=== PATIENT | male | born 1960 | race Caucasian/White ===

== ENCOUNTER 2016-09-23 12:49 | Inpatient (IN) | payer MEDICARE, OTHER ==
[~2016-09-23] VITALS: Ht 180.3 cm; Wt 86.4 kg
[~2016-09-23 12:49] MED LIST: ADV25050 INH; ALBU2.5V36 NEB; AMIO200T2 PO; ASC500 PO; ASPI81TA3 PO; ATOR10TA65 PO; BISA10SU58 PR; CLOP75TA27 PO; CRAN3875 PO; CRAN425C PO; DOCU-144 PO; HYDR-3498 PO; LACT1CAP33 PO; MAGN400O4 PO; METO-448 PO; MULT-552 PO; NA P118E PR; OLAN5TAB5 PO; PANT40TA3 PO; RTATR NEB; TIOT18CA IH; TYL500 PO
[2016-09-23] MEDS ORDERED: ALBUTEROL 0.083% (NEB) 2.5 MG/3 ML AMP NEB STA (12:51)
[2016-09-23] MEDS ORDERED: IPRATROPIUM (NEB) 0.5 MG/2.5 ML AMP NEB STA (12:51)
[2016-09-23 12:59] VITALS: Ht 180.3 cm; Wt 86.4 kg
[2016-09-23] MEDS ORDERED: METHYLPREDNISOLONE 125 MG INJ IV STA (13:08)
[2016-09-23] MEDS ORDERED: ACETAMINOPHEN 325 MG TAB PO PRN ×3 (13:30→18:00)
[2016-09-23] MEDS ORDERED: ONDANSETRON 4 MG INJ IV PRN ×2 (13:30→18:00)
[2016-09-23] MEDS ORDERED: AZITHROMYCIN 500MG/NS (PMX) 250 ML IVPB ONE (13:30)
[2016-09-23 13:40] LABS: ADD SCAN DIFF NO
[2016-09-23 13:44] LABS: BASOPHIL # 0.1 10^3/ul (0.0-0.1); BASOPHILS % 0.4 % (0.0-2.0); EOSINOPHILS # 0.6 10^3/ul (0.0-0.5); EOSINOPHILS % 5.4 % (0.0-7.0); HEMATOCRIT 38.3 % (42.0-52.0); HEMOGLOBIN 11.9 g/dl (14.0-18.0); LYMPHOCYTES # 1.6 10^3/ul (0.8-2.9); MEAN CORPUSCULAR HEMOGLOBIN 30.6 pg (29.0-33.0); MEAN CORPUSCULAR HGB CONC 31.1 g/dl (32.0-37.0); MEAN CORPUSCULAR VOLUME 98.5 fl (82.0-101.0); MEAN PLATELET VOLUME 8.9 fl (7.4-10.4); MONOCYTE # 1.2 10^3/ul (0.3-0.9); MONOCYTES % 10.1 % (0.0-11.0); NEUTROPHIL # 7.9 10^3/ul (1.6-7.5); NEUTROPHILS % 69.5 % (39.0-77.0); PLATELET COUNT 267 10^3/UL (140-415); RED BLOOD COUNT 3.89 10^6/ul (4.70-6.10); RED CELL DISTRIBUTION WIDTH 12.9 % (11.5-14.5); WHITE BLOOD COUNT 11.4 10^3/ul (4.8-10.8)
[2016-09-23 13:56] LABS: BLOOD UREA NITROGEN 21 mg/dl (7-20); CALCIUM 9.3 mg/dl (8.4-10.2); CHLORIDE 90 mmol/L (97-110); CREATININE 0.66 mg/dl (0.61-1.24); GLUCOSE 98 mg/dl (70-220); POTASSIUM 4.7 mmol/L (3.5-5.1); SODIUM 139 mmol/L (135-144)
[2016-09-23 14:05] LABS: ANION GAP 12 (8-16); CARBON DIOXIDE 42 mmol/L (21-31)
--- NOTE | 2016-09-23 14:10 | RADRPT ---
PROCEDURE: XR Chest. CLINICAL INDICATION: Cough. TECHNIQUE: Two views. Frontal and lateral. COMPARISON: 01/11/2015. FINDINGS: There is patchy air space disease in the right upper and lower lung zones consistent with pneumonia. The left lung is clear. The heart is enlarged. There is calcification in the aorta consistent with atherosclerosis. There is no pleural effusion. There is no pneumothorax. IMPRESSION: 1. Patchy pneumonia in the right upper lower lung zones. 2. Cardiomegaly and atherosclerosis. RPTAT: QQ .Immanuel Dean MD, MD Date Time Electronically viewed and signed by .Immanuel Dean MD, on 09/23/2016 14:10 .R/
[2016-09-23] MEDS ORDERED: ACET325T33 PO (14:13)
[2016-09-23] MEDS ORDERED: ALBU90AE INHALATION (14:13)
[2016-09-23] MEDS ORDERED: MONT10TA21 PO (14:14)
[2016-09-23] MEDS ORDERED: DEXT1DRO7 OP (14:16)
[2016-09-23] MEDS ORDERED: DIPH28.32 TOP (14:17)
[2016-09-23] MEDS ORDERED: LORA10TA3 PO (14:18)
[2016-09-23] MEDS ORDERED: DIVA500T7 PO (14:20)
[2016-09-23] MEDS ORDERED: OMEG500C3 PO (14:20)
[2016-09-23] MEDS ORDERED: ATOR10TA65 PO (14:21)
[2016-09-23] MEDS ORDERED: MAG355OR14 PO (14:22)
[2016-09-23] MEDS ORDERED: NICO1PAT6 TD (14:23)
[2016-09-23] MEDS ORDERED: GABA100C14 PO (14:23)
[2016-09-23] MEDS ORDERED: HYDR-902 PO (14:24)
[2016-09-23] MEDS ORDERED: CEFEPIME 1GM/50 ML (PMX) 50 ML IVPB ONE (14:30)
[2016-09-23 14:41] LABS: TROPONIN-I < 0.010 ng/ml (0.00-0.12)
--- NOTE | 2016-09-23 15:27 | ERA ---
ER Documentation Chief Complaint Date/Time DATE: 09/23/16 TIME: 15:23 Chief Complaint BROUGHT IN VIA PRIVATE AMBULANCE FROM [facility] DUE TO ELEVATED CO2 AT 81 HPI Patient is a 56-year-old male with COPD who presents with a high carbon dioxide level. The patient was brought in by ambulance. He is currently wearing a 21 g nicotine patch. He uses home oxygen of 2-3 L. He was sent by Dr. Barnes his primary doctor. He is awake and alert at this time. ROS All systems reviewed and are negative except as per history of present illness. Medications Home Meds Reported Medications Hydrocodone/Acetaminophen (Sesser 10-325 Tablet) 1 Each Tablet, 1 EACH PO Q8H Y for PAIN LEVEL 7-9/10, TAB 09/23/16 Nicotine* (Nicotine* Patch) 21 mg/day Patch, 1 EACH TD DAILY, PATCH 09/23/16 Gabapentin* (Gabapentin*) 100 Mg Capsule, 200 MG PO TID, #180 CAP 09/23/16 Mag Hydrox/Al Hydrox/Simeth (Maalox Advanced Suspension) 355 Ml Oral.susp, 30 ML PO Q6H 09/23/16 Atorvastatin Calcium (Atorvastatin Calcium) 10 Mg Tablet, 5 MG PO QHS, #30 TAB 09/23/16 [place]-3 Fatty Acids (Fish Oil) 500 Mg Capsule, 1000 MG PO, CAP 09/23/16 Divalproex Sodium* (Depakote ER*) 500 Mg Tabsr, 1000 MG PO QHS, #60 TAB.SA 09/23/16 Loratadine* (Loratadine*) 10 Mg Tablet, 10 MG PO DAILY, #30 TAB 09/23/16 Diphenhydramine-Zinc* Topical (Diphenhydramine-Zinc* Topical) 1%-28 Gm Cream..g. , 1 APPLIC TOP NEEDED, TUB 09/23/16 Dextran 70/Hypromellose/Pf (ARTIFICIAL TEARS DROPS) 1 Each Droperette, 1 EACH OP TID 09/23/16 Montelukast Sodium* (Singulair*) 10 Mg Tablet, 10 MG PO QHS, #30 TAB 09/23/16 Acetaminophen* (Tylenol*) 325 Mg Tablet, 650 MG PO Q4H Y for MILD PAIN LEVEL 1-3 , TAB 09/23/16 Albuterol Sulfate (Proair Respiclick) 90 Mcg Aer.pow.ba, 1 PUFF INHALATION Q4 Y for SHORTNESS OF BREATH, #1 BOTTLE 09/23/16 Metoprolol Tartrate* (Lopressor*) 25 Mg Tab, 25 MG PO BID for HOLD OF SBP<110, HR<60, TAB 09/02/14 Ipratropium [place]* (Atrovent*) 0.5 Mg/2.5 Ml Neb, 0.5 MG NEB Q4H Y for WHEEZING AND SOB, EA 09/02/14 Aspirin* (Aspirin* Chew) 81 Mg Tab.chew, 81 MG PO DAILY, TAB.CHEW 09/02/14 Lactobacillus Acidophilus (Acidophilus Lactobacillus) 1 Cap Capsule, 1 CAP PO BID 09/02/14 Ascorbic Acid (Vitamin C) 500 Mg Tab, 500 MG PO DAILY, TAB 05/28/14 Acetaminophen* (Tylenol*) 500 Mg Tab, 1000 MG PO Q4H Y for PAIN LEVEL 4-11/27, TAB 05/28/14 Pantoprazole* (Protonix*) 40 Mg Tablet.dr, 40 MG PO BID, TAB 05/28/14 Multivitamins* (Once Daily*) 1 Tab Tablet, 1 TAB PO DAILY, TAB 05/28/14 Magnesium Hydroxide* (Milk Of Magnesia*) 400 Mg/5 Ml Oral.susp, 30 ML PO DAILY Y for CONSTIPATION, ML 05/28/14 Na Phos,M-B/Na Phos,Di-Ba* (Fleet* Enema) 118 Ml Enema, 118 ML AL prn Y for CONSTIPATION, ENEMA 05/28/14 Bisacodyl* (Dulcolax*) 10 Mg/Supp.rect Supp.rect, 10 MG AL DAILY Y for CONSTIPATION, SUPP.RECT 05/28/14 Cranberry Extract (Cranberry) 425 Mg Capsule, 425 MG PO DAILY 05/28/14 Amiodarone Hcl* (Amiodarone Hcl*) 200 Mg Tablet, 200 MG PO DAILY, TAB 05/28/14 Docusate Sodium* (Colace*) 100 Mg Capsule, 200 MG PO QHS Y for CONSTIPATION, CAP 05/28/14 Discontinued Reported Medications Olanzapine* (Zyprexa*) 5 Mg Tablet, 5 MG PO QHS, TAB 09/02/14 Cran/Vitc/Mannose/Inulin/Brom (Uti-Stat Liquid) 3,875 Mg/30 Ml Liquid, 3875 MG PO DAILY 09/02/14 Clopidogrel Bisulfate (Clopidogrel) 75 Mg Tablet, 75 MG PO DAILY, TAB 09/02/14 Hydrocodone Bit-Acetaminophen* (Sesser*) 5-325 Mg Tab, 1 TAB PO Q6 Y for SEVERE PAIN LEVEL 7-10, TAB 09/02/14 Atorvastatin Calcium (Atorvastatin Calcium) 10 Mg Tab, 10 MG PO HS, TAB 09/02/14 Albuterol Sulfate* (Albuterol Sulfate* Neb) 0.5%-0.5 Ml Neb, 2.5 MG NEB Q4H Y for WHEEZING AND SOB, EA 09/02/14 Salmeterol Xinaf/Fluticasone* (Advair*) 250-50 Diskus Inhaler, 1 INH INH BID, INH 09/02/14 Tiotropium [place]* (Spiriva*) 18 Mcg Cap.w.dev, 1 INH IH DAILY, EA 05/28/14 Allergies Allergies: Coded Allergies: vancomycin (Verified Allergy, Unknown, RASHES, 09/23/16) PMhx/Soc History of Surgery: Yes (RIGHT KNEE SURGERY A CHILD) Anesthesia Reaction: No Hx Neurological Disorder: No Hx Respiratory Disorders: Yes (COPD, ASTHMA) Hx Cardiac Disorders: Yes (HX OF AFIB, HTN, CAD) Hx Psychiatric Problems: Yes (HX OF BIPOLAR DISORDER) Hx Miscellaneous Medical Probl: No Hx Alcohol Use: No Hx Substance Use: Yes (PT ADVISED HE USE TO SMOKE CRACK) Hx Tobacco Use: Yes Smoking Status: Former smoker FmHx Family History: No diabetes Physical Exam Vitals Vital Signs Date Time Temp Pulse Resp B/P Pulse Ox O2 Delivery O2 Flow Rate FiO2 09/23/16 13:45 Nasal Cannula 5 09/23/16 13:30 4.0 09/23/16 13:30 85 19 88 Nasal Cannula 4.0 09/23/16 12:59 98.4 86 18 115/68 86 Physical Exam Const: No acute distress Head: Atraumatic Eyes: Normal Conjunctiva ENT: Normal External Ears, Nose and Mouth. Neck: Full range of motion..~ No meningismus. Resp: Decreased breath sounds bilaterally Cardio: Regular rate and rhythm, no murmurs Abd: Soft, non tender, non distended. Normal bowel sounds Skin: No petechiae or rashes Back: No midline or flank tenderness Ext: No cyanosis, or edema Neur: Awake and alert 3 Psych: Normal Mood and Affect Result Diagram: 09/23/16 1320 09/23/16 1320 Results 24 hrs Laboratory Tests Test 09/23/16 13:20 White Blood Count 11.410^3/ul Red Blood Count 3.8910^6/ul Hemoglobin 11.9g/dl Hematocrit 38.3% Mean Corpuscular Volume 98.5fl Mean Corpuscular Hemoglobin 30.6pg Mean Corpuscular Hemoglobin Concent 31.1g/dl Red Cell Distribution Width 12.9% Platelet Count 59976^3/UL Mean Platelet Volume 8.9fl Neutrophils % 69.5% Lymphocytes % 14.0% Monocytes % 10.1% Eosinophils % 5.4% Basophils % 0.4% Nucleated Red Blood Cells % 0.0/100WBC Neutrophils # 7.910^3/ul Lymphocytes # 1.610^3/ul Monocytes # 1.210^3/ul Eosinophils # 0.610^3/ul Basophils # 0.110^3/ul Nucleated Red Blood Cells # 0.010^3/ul Sodium Level 139mmol/L Potassium Level 4.7mmol/L Chloride Level 90mmol/L Carbon Dioxide Level 42mmol/L Anion Gap 12 Blood Urea Nitrogen 21mg/dl Creatinine 0.66mg/dl Glucose Level 98mg/dl Calcium Level 9.3mg/dl Troponin I < 0.010ng/ml Current Medications Medications (Trade) Dose Ordered Sig/Luis Route PRN Reason Start Time Stop Time Status Last Admin Dose Admin Albuterol (Proventil 0.083% (Neb)) 5 mg ONCE STAT NEB 09/23/16 12:51 09/23/16 12:53 DC 09/23/16 13:27 Ipratropium [place] (Atrovent 0.02% (Neb)) 0.5 mg ONCE STAT NEB 09/23/16 12:51 09/23/16 12:53 DC 09/23/16 13:27 Methylprednisolone Sodium Succinate 125 mg 125 mg ONCE STAT IV 09/23/16 13:08 09/23/16 13:10 DC 09/23/16 14:14 Azithromycin (Zithromax 500mg/ NS (Pmx)) 250 ml @ 250 mls/hr ONCE ONCE IVPB 09/23/16 13:30 09/23/16 14:29 DC 09/23/16 14:14 Ondansetron HCl (Zofran Inj) 4 mg BRIDGE ORDER PRN IV NAUSEA AND/OR VOMITING 09/23/16 13:30 09/24/16 13:29 Acetaminophen 650 mg 650 mg ER BRIDGE PRN PO MILD PAIN/FEVER 09/23/16 13:30 09/24/16 13:29 Cefepime HCl (Maxipime 1gm/50 ml (Pmx)) 50 ml @ 100 mls/hr ONCE ONCE IVPB 09/23/16 14:30 09/23/16 14:59 DC 09/23/16 14:26 Procedures/MDM Chest x-ray shows pneumonia per radiology. EKG read by me: Rate/Rhythm: Regular rate and rhythm at a rate of 97 Intervals: Normal Impression: No evidence of ischemia or arrhythmia Patient is a 56-year-old male with COPD who presents with high carbon dioxide. He was also found to have pneumonia on chest x-ray. The patient was given Zithromax and cefepime empirically. I doubt sepsis at this time. The patient was given albuterol, Atrovent, and Solu-Medrol. The patient will be admitted to the care of Dr. Canales who is covering for his primary doctor at this time. The patient will be admitted to a medical surgical bed. I doubt pneumothorax or pulmonary embolism. The patient was 87% on 5 L nasal cannula which is more oxygen than he normally uses. Departure Diagnosis: Primary Impression: Hypoxia Additional Impressions: COPD exacerbation Pneumonia Qualified Code: J18.9 - Pneumonia due to infectious organism, unspecified laterality, unspecified part of lung Condition: DAVID Byers MD Sep 23, 2016 15:27
[2016-09-23 16:46] VITALS: BP 132/80; RESP 18
[2016-09-23] MEDS ORDERED: BISACODYL 10 MG SUPP PR PRN (18:00)
[2016-09-23] MEDS ORDERED: DOCUSATE SODIUM 100 MG CAP PO PRN (18:00)
[2016-09-23] MEDS ORDERED: NACL 0.9% 3 ML SYG IV SCH (18:00)
[2016-09-23] MEDS ORDERED: NA PHOSPHATE/BIPHOS 133 ML ENEMA PR PRN (18:00)
[2016-09-23] MEDS ORDERED: ACETAMINOPHEN 500 MG TAB PO PRN (18:00)
[2016-09-23] MEDS ORDERED: MAGNESIUM HYDROXIDE 30ML CUP PO PRN (18:00)
[2016-09-23] MEDS: METHYLPREDNISOLONE 125 MG INJ IV SCH (18:56)
[2016-09-23] MEDS: AZITHROMYCIN 500MG/NS (PMX) 250 ML IVPB SCH (18:56)
[2016-09-23] MEDS: AL HYDROX/MG HYDROX/SIMETH 30 ML CUP PO SCH (18:56)
[2016-09-23 19:47] VITALS: BP 135/80; RESP 20
[2016-09-23] MEDS: ALBUTEROL 0.083% (NEB) 2.5 MG/3 ML AMP HHN SCH (19:57)
[2016-09-23] MEDS: GABAPENTIN 100 MG CAP PO SCH (21:47)
[2016-09-23] MEDS: PANTOPRAZOLE (EC) 40 MG TAB PO SCH (21:47)
[2016-09-23] MEDS: DIVALPROEX (ER) 500 MG TAB PO SCH (21:47)
[2016-09-23] MEDS: MONTELUKAST 10 MG TAB PO SCH (21:47)
[2016-09-23] MEDS: ATORVASTATIN 10 MG TAB PO SCH (21:47)
[2016-09-23] MEDS: METOPROLOL 25 MG TAB PO SCH (21:48)
[2016-09-23] MEDS: CEFEPIME 1GM/50 ML (PMX) 50 ML IVPB SCH (21:48)
[2016-09-24] MEDS: AL HYDROX/MG HYDROX/SIMETH 30 ML CUP PO SCH ×5 (00:32→23:40)
[2016-09-24] MEDS: METHYLPREDNISOLONE 125 MG INJ IV SCH ×5 (00:32→23:40)
--- NOTE | 2016-09-24 00:34 | CONS ---
DATE OF ADMISSION: 09/23/2016 DATE OF CONSULTATION: 09/23/2016 TYPE OF CONSULTATION: Infectious Disease. REASON FOR CONSULTATION: Antibiotic management. HISTORY OF PRESENT ILLNESS: Dima Tucker is a 56-year-old male brought in via private ambulance from a SNF due to elevated CO2. The patient has a number of problems including COPD. He is brought in with a high carbon dioxide level of 81. He came to the emergency room wearing a 21 mcg nicotine pat ch. He uses home oxygen 2 to 3 L. His past problems include: 1. ALLERGY TO VANCOMYCIN, DEVELOPS A RASH. 2. Status post right knee surgery as a child. 3. COPD. 4. Asthma. 5. History of atrial fibrillation. 6. Hypertension. 7. Coronary artery disease. 8. Bipolar disorder. On admission, the patient's white count was 11.4, H and H 11.9 and 38.3, platelet count 267,000. BU N and creatinine 21 over 0.66. PHYSICAL EXAMINATION: GENERAL: The patient is a well-developed, well-nourished male who is awake, responsive, in no acute distress. VITAL SIGNS: Stable. He is afebrile. SKIN: Without generalized rash. HEENT: Within normal limits. NECK: Supple. LYMPH NODES: None palpable. CHEST: Decreased breath sounds at the bases. HEART: Without murmur or gallop. ABDOMEN: Soft, nontender without organosplenomegaly or masses. EXTREMITIES: Without cyanosis, clubbing or edema. RECTAL AND GENITAL: Deferred. NEUROLOGIC: No focal neurological abnormalities. As mentioned, his white count was 11.4. BUN and creatinine 21 over 0.66. A chest x-ray showed patc hy pneumonia in the right upper and lower lung zones, cardiomegaly and atherosclerosis. The patient was started on cefepime, which was a good choice since he has healthcare-associated pneumonia. Lionel l await his culture results. He is on cefepime and azithromycin. He is afebrile. Will order some sputum for culture. I will dictate my findings to the hospitalist. Dictated By: ARVIN NOVA MD, JD/ALYSON Conf#: [id number] DID#: [id number]
[2016-09-24] MEDS: IPRATROPIUM (NEB) 0.5 MG/2.5 ML AMP NEB PRN ×2 (03:08→20:04)
[2016-09-24 06:00] LABS: ADD SCAN DIFF NO
[2016-09-24 06:39] LABS: BASOPHILS % 0.2 % (0.0-2.0); HEMATOCRIT 36.9 % (42.0-52.0); HEMOGLOBIN 11.6 g/dl (14.0-18.0); LYMPHOCYTES # 0.6 10^3/ul (0.8-2.9); LYMPHOCYTES % 4.9 % (15.0-51.0); MEAN CORPUSCULAR HEMOGLOBIN 30.9 pg (29.0-33.0); MEAN CORPUSCULAR HGB CONC 31.4 g/dl (32.0-37.0); MEAN CORPUSCULAR VOLUME 98.4 fl (82.0-101.0); MEAN PLATELET VOLUME 9.2 fl (7.4-10.4); MONOCYTE # 0.1 10^3/ul (0.3-0.9); MONOCYTES % 0.6 % (0.0-11.0); NEUTROPHILS % 93.2 % (39.0-77.0); PLATELET COUNT 227 10^3/UL (140-415); RED BLOOD COUNT 3.75 10^6/ul (4.70-6.10); RED CELL DISTRIBUTION WIDTH 12.6 % (11.5-14.5); WHITE BLOOD COUNT 12.9 10^3/ul (4.8-10.8)
[2016-09-24 07:06] LABS: ALBUMIN 3.7 g/dl (3.3-4.9); ALBUMIN/GLOBULIN RATIO 0.88; BILIRUBIN,INDIRECT 0.1 mg/dl (0-1.1); BILIRUBIN,TOTAL 0.1 mg/dl (0.2-1.3); CALCIUM 8.6 mg/dl (8.4-10.2); CREATININE 0.65 mg/dl (0.61-1.24); MAGNESIUM 2.2 mg/dl (1.7-2.5); PHOSPHORUS 3.7 mg/dl (2.5-4.9); POTASSIUM 4.9 mmol/L (3.5-5.1); TOTAL PROTEIN 7.9 g/dl (6.1-8.1)
[2016-09-24 07:30] VITALS: BP 125/71; RESP 16
[2016-09-24] MEDS: CEFEPIME 1GM/50 ML (PMX) 50 ML IVPB SCH ×2 (08:34→21:27)
[2016-09-24] MEDS: ASPIRIN 81 MG TAB PO SCH (08:35)
[2016-09-24] MEDS: GABAPENTIN 100 MG CAP PO SCH ×3 (08:36→21:28)
[2016-09-24] MEDS: LORATADINE 10 MG TAB PO SCH (08:36)
[2016-09-24] MEDS: ASCORBIC ACID 500 MG TAB PO SCH (08:36)
[2016-09-24] MEDS: AMIODARONE 200 MG TAB PO SCH (08:36)
[2016-09-24] MEDS: PANTOPRAZOLE (EC) 40 MG TAB PO SCH ×2 (08:36→21:27)
[2016-09-24] MEDS: METOPROLOL 25 MG TAB PO SCH ×2 (08:36→21:28)
[2016-09-24] MEDS: MULTIVITAMINS THERAPEUTIC TAB PO SCH (08:36)
[2016-09-24] MEDS: DIPHENHYDRAMINE 1%/ZINC 28.3 GM CR TOP SCH (08:41)
[2016-09-24] MEDS: ALBUTEROL 0.083% (NEB) 2.5 MG/3 ML AMP HHN SCH ×4 (08:59→20:04)
[2016-09-24] MEDS ORDERED: NICOTINE (21 MG/24 HR) PATCH TRANSDERM SCH (09:00)
[2016-09-24] MEDS: ENOXAPARIN 40 MG/0.4 ML SYG SC SCH (09:28)
--- NOTE | 2016-09-24 14:04 | HP ---
Date/Time of Note Date/Time of Note DATE: 09/24/16 TIME: 14:01 Assessment/Plan VTE Prophylaxis VTE Prophylaxis Intervention: other Lines/Catheters IV [facility] Saline Lock Urinary Cath still in place: No Assessment/Plan Assessment/Plan Hypoxia and acute resp failure COPD exacerbation Pneumonia continue abx, bronchodilators and steroids. pulm is consulted. dc nicotin patch. dvt and gi prophylaxis 30 mins were spent on advanced directives and goals of care HPI/ROS Admit Date/Time Admit Date/Time Sep 23, 2016 at 13:31 Hx of Present Illness Patient is a 56-year-old male with COPD who presents with high carbon dioxide. He was also found to have pneumonia on chest x-ray. The patient was given Zithromax and cefepime empirically. I doubt sepsis at this time. The patient was given albuterol, Atrovent, and Solu-Medrol. The patient will be admitted to the care of Dr. Canales who is covering for his primary doctor at this time. The patient will be admitted to a medical surgical bed. I doubt pneumothorax or pulmonary embolism. The patient was 87% on 5 L nasal cannula which is more oxygen than he normally uses. His pulm status is improving ROS All systems reviewed and are negative except as per history of present illness. soc hx: quit tobacco and alcohol few years ago family history: + pulm diseases code status: full Medications Home Meds Reported Medications Hydrocodone/Acetaminophen (Raymond 10-325 Tablet) 1 Each Tablet, 1 EACH PO Q8H Y for PAIN LEVEL 7-9/10, TAB 09/23/16 Nicotine* (Nicotine* Patch) 21 mg/day Patch, 1 EACH TD DAILY, PATCH 09/23/16 Gabapentin* (Gabapentin*) 100 Mg Capsule, 200 MG PO TID, #180 CAP 09/23/16 Mag Hydrox/Al Hydrox/Simeth (Maalox Advanced Suspension) 355 Ml Oral.susp, 30 ML PO Q6H 09/23/16 Atorvastatin Calcium (Atorvastatin Calcium) 10 Mg Tablet, 5 MG PO QHS, #30 TAB 09/23/16 [place]-3 Fatty Acids (Fish Oil) 500 Mg Capsule, 1000 MG PO, CAP 09/23/16 Divalproex Sodium* (Depakote ER*) 500 Mg Tabsr, 1000 MG PO QHS, #60 TAB.SA 09/23/16 Loratadine* (Loratadine*) 10 Mg Tablet, 10 MG PO DAILY, #30 TAB 09/23/16 Diphenhydramine-Zinc* Topical (Diphenhydramine-Zinc* Topical) 1%-28 Gm Cream..g. , 1 APPLIC TOP NEEDED, TUB 09/23/16 Dextran 70/Hypromellose/Pf (ARTIFICIAL TEARS DROPS) 1 Each Droperette, 1 EACH OP TID 09/23/16 Montelukast Sodium* (Singulair*) 10 Mg Tablet, 10 MG PO QHS, #30 TAB 09/23/16 Acetaminophen* (Tylenol*) 325 Mg Tablet, 650 MG PO Q4H Y for MILD PAIN LEVEL 1-3 , TAB 09/23/16 Albuterol Sulfate (Proair Respiclick) 90 Mcg Aer.pow.ba, 1 PUFF INHALATION Q4 Y for SHORTNESS OF BREATH, #1 BOTTLE 09/23/16 Metoprolol Tartrate* (Lopressor*) 25 Mg Tab, 25 MG PO BID for HOLD OF SBP<110, HR<60, TAB 09/02/14 Ipratropium [place]* (Atrovent*) 0.5 Mg/2.5 Ml Neb, 0.5 MG NEB Q4H Y for WHEEZING AND SOB, EA 09/02/14 Aspirin* (Aspirin* Chew) 81 Mg Tab.chew, 81 MG PO DAILY, TAB.CHEW 09/02/14 Lactobacillus Acidophilus (Acidophilus Lactobacillus) 1 Cap Capsule, 1 CAP PO BID 09/02/14 Ascorbic Acid (Vitamin C) 500 Mg Tab, 500 MG PO DAILY, TAB 05/28/14 Acetaminophen* (Tylenol*) 500 Mg Tab, 1000 MG PO Q4H Y for PAIN LEVEL 4-11/27, TAB 05/28/14 Pantoprazole* (Protonix*) 40 Mg Tablet.dr, 40 MG PO BID, TAB 05/28/14 Multivitamins* (Once Daily*) 1 Tab Tablet, 1 TAB PO DAILY, TAB 05/28/14 Magnesium Hydroxide* (Milk Of Magnesia*) 400 Mg/5 Ml Oral.susp, 30 ML PO DAILY Y for CONSTIPATION, ML 05/28/14 Na Phos,M-B/Na Phos,Di-Ba* (Fleet* Enema) 118 Ml Enema, 118 ML [place] prn Y for CONSTIPATION, ENEMA 05/28/14 Bisacodyl* (Dulcolax*) 10 Mg/Supp.rect Supp.rect, 10 MG NV DAILY Y for CONSTIPATION, SUPP.RECT 05/28/14 Cranberry Extract (Cranberry) 425 Mg Capsule, 425 MG PO DAILY 05/28/14 Amiodarone Hcl* (Amiodarone Hcl*) 200 Mg Tablet, 200 MG PO DAILY, TAB 05/28/14 Docusate Sodium* (Colace*) 100 Mg Capsule, 200 MG PO QHS Y for CONSTIPATION, CAP 05/28/14 Discontinued Reported Medications Olanzapine* (Zyprexa*) 5 Mg Tablet, 5 MG PO QHS, TAB 09/02/14 Cran/Vitc/Mannose/Inulin/Brom (Uti-Stat Liquid) 3,875 Mg/30 Ml Liquid, 3875 MG PO DAILY 09/02/14 Clopidogrel Bisulfate (Clopidogrel) 75 Mg Tablet, 75 MG PO DAILY, TAB 09/02/14 Hydrocodone Bit-Acetaminophen* (Raymond*) 5-325 Mg Tab, 1 TAB PO Q6 Y for SEVERE PAIN LEVEL 7-10, TAB 09/02/14 Atorvastatin Calcium (Atorvastatin Calcium) 10 Mg Tab, 10 MG PO HS, TAB 09/02/14 Albuterol Sulfate* (Albuterol Sulfate* Neb) 0.5%-0.5 Ml Neb, 2.5 MG NEB Q4H Y for WHEEZING AND SOB, EA 09/02/14 Salmeterol Xinaf/Fluticasone* (Advair*) 250-50 Diskus Inhaler, 1 INH INH BID, INH 09/02/14 Tiotropium [place]* (Spiriva*) 18 Mcg Cap.w.dev, 1 INH IH DAILY, EA 05/28/14 Allergies Allergies: Coded Allergies: vancomycin (Verified Allergy, Unknown, RASHES, 09/23/16) PMhx/Soc History of Surgery: Yes (RIGHT KNEE SURGERY A CHILD) Anesthesia Reaction: No Hx Neurological Disorder: No Hx Respiratory Disorders: Yes (COPD, ASTHMA) Hx Cardiac Disorders: Yes (HX OF AFIB, HTN, CAD) Hx Psychiatric Problems: Yes (HX OF BIPOLAR DISORDER) Hx Miscellaneous Medical Probl: No Hx Alcohol Use: No Hx Substance Use: Yes (PT ADVISED HE USE TO SMOKE CRACK) Hx Tobacco Use: Yes Smoking Status: Former smoker FmHx Family History: No diabetes Physical Exam Vitals Vital Signs Date Time Temp Pulse Resp B/P Pulse Ox O2 Delivery O2 Flow Rate FiO2 09/23/16 13:45 Nasal Cannula 5 09/23/16 13:30 4.0 09/23/16 13:30 85 19 88 Nasal Cannula 4.0 09/23/16 12:59 98.4 86 18 115/68 86 Physical Exam Const: No acute distress Head: Atraumatic Eyes: Normal Conjunctiva ENT: Normal External Ears, Nose and Mouth. Neck: Full range of motion..~ No meningismus. Resp: Decreased breath sounds bilaterally Cardio: Regular rate and rhythm, no murmurs Abd: Soft, non tender, non distended. Normal bowel sounds Skin: No petechiae or rashes Back: No midline or flank tenderness Ext: No cyanosis, or edema Neur: Awake and alert 3 Psych: Normal Mood and Affect Result Diagram: Procedures/MDM Chest x-ray shows pneumonia per radiology. EKG Rate/Rhythm: Regular rate and rhythm at a rate of 97 Intervals: Normal Impression: No evidence of ischemia or arrhythmia PMH/Family/Social Social History Smoking Status: Former smoker Exam/Review of Systems Vital Signs Vitals Vital Signs Date Time Temp Pulse Resp B/P Pulse Ox O2 Delivery O2 Flow Rate FiO2 09/24/16 13:08 103 20 96 Nasal Cannula 6.0 09/24/16 07:30 98.6 125/71 Intake and Output 09/23/16 09/23/16 09/24/16 15:00 23:00 07:00 Intake Total 300 ml 240 ml Output Total 150 ml 1200 ml Balance 150 ml -960 ml Labs Result Diagram: 09/24/16 0512 09/24/16 0512 Medications Medications Current Medications Ondansetron HCl (Zofran Inj) 4 mg Q6H PRN IV NAUSEA AND/OR VOMITING; Start 09/23 at 18:00 Acetaminophen (Tylenol Tab) 650 mg Q6H PRN PO PAIN LEVEL 1-3 OR FEVER; Start at 18:00 Zolpidem Tartrate (Ambien) 5 mg QHS PRN PO SLEEP; Start 09/23/16 at 18:00 Enoxaparin Sodium (Lovenox) 40 mg DAILY SC Last administered on 09/24/16t 09:28 ; Admin Dose 40 MG; Start 09/24/16 at 09:00 Acetaminophen (Tylenol Tab) 650 mg Q4H PRN PO MILD PAIN LEVEL 1-3; Start at 18:00 Acetaminophen (Tylenol Tab) 1,000 mg Q4H PRN PO PAIN LEVEL 4-6/10; Start at 18:00 Amiodarone HCl (Cordarone) 200 mg DAILY PO Last administered on 09/24/16 08:36 ; Admin Dose 200 MG; Start 09/24/16 at 09:00 Ascorbic Acid (Vitamin C) 500 mg DAILY PO Last administered on 09/24/16 08:36; Admin Dose 500 MG; Start 09/24/16 at 09:00 Aspirin (Aspirin) 81 mg DAILY PO Last administered on 09/24/16 08:35; Admin Dose 81 MG; Start 09/24/16 at 09:00 Atorvastatin Calcium (Lipitor) 5 mg QHS PO Last administered on 09/23/16 21:47 ; Admin Dose 5 MG; Start 09/23/16 at 21:00 Bisacodyl (Dulcolax Supp) 10 mg DAILY PRN NV CONSTIPATION; Start 09/23/16 at 18: 00 Diphenhydramine/ Zinc Oxide (Benadryl 1% Cr) 1 applic DAILY TOP ; Start 09/24/16 at 09:00 Divalproex Sodium (Depakote Er) 1,000 mg QHS PO Last administered on 09/23/16 21:47; Admin Dose 1,000 MG; Start 09/23/16 at 21:00 Docusate Sodium (Colace) 200 mg QHS PRN PO CONSTIPATION; Start 09/23/16 at 18:00 Gabapentin (Neurontin) 200 mg TID PO Last administered on 09/24/16 12:29; Admin Dose 200 MG; Start 09/23/16 at 21:00 Acetaminophen/ Hydrocodone Bitart (Raymond (10/325)) 1 tab Q8H PRN PO PAIN LEVEL 7-9/10; Start 09/23/16 at 18:00 Loratadine (Claritin) 10 mg DAILY PO Last administered on 09/24/16 08:36; Admin Dose 10 MG; Start 09/24/16 at 09:00 Al Hydrox/Mg Hydrox/Simethicone (Mag-Al Plus) 30 ml Q6H PO Last administered on 09/24/16 12:28; Admin Dose 30 ML; Start 09/23/16 at 18:00 Magnesium Hydroxide (Milk Of Mag) 30 ml DAILY PRN PO CONSTIPATION; Start at 18:00 Metoprolol Tartrate (Lopressor) 25 mg BID PO Last administered on 09/24/16 08: 36; Admin Dose 25 MG; Start 09/23/16 at 21:00 Montelukast Sodium (Singulair) 10 mg QHS PO Last administered on 09/23/16 21:47 ; Admin Dose 10 MG; Start 09/23/16 at 21:00 Multivitamins Therapeutic (Theragran) 1 tab DAILY PO Last administered on 08:36; Admin Dose 1 TAB; Start 09/24/16 at 09:00 Sodium Biphosphate/ Sodium Phosphate (Fleet Enema) 118 ml prn PRN NV CONSTIPATION; Start 09/23/16 at 18:00 Nicotine (Nicoderm 21 Mg/ 24hr) 1 patch DAILY TRANSDERM ; Start 09/24/16 at 09:00 Pantoprazole 40 mg 40 mg BID PO Last administered on 09/24/16 08:36; Admin Dose 40 MG; Start 09/23/16 at 21:00 Cefepime HCl 50 ml @ 100 mls/hr Q12 IVPB Last administered on 09/24/16 08:34; Admin Dose 100 MLS/HR; Start 09/23/16 at 21:00 Azithromycin (Zithromax 500mg/ NS (Pmx)) 250 ml @ 250 mls/hr Q24H IVPB Last administered on 09/23/16 18:56; Admin Dose 250 MLS/HR; Start 09/23/16 at 18:00 Methylprednisolone Sodium Succinate (Solu-Medrol) 60 mg Q6 IV Last administered on 09/24/16 12:29; Admin Dose 60 MG; Start 09/23/16 at 18:00 DAMON BOSWELL DO Sep 24, 2016 14:04
--- NOTE | 2016-09-24 14:11 | CONS ---
DATE OF ADMISSION: 09/23/2016 DATE OF CONSULTATION: 09/24/2016 REASON FOR CONSULT: Shortness of breath. Thank you, Dr. Canales, for this consultation. REASON FOR CONSULTATION: Shortness of breath. HISTORY OF PRESENT ILLNESS: This is a 56-year-old gentleman transferred from [facility] for increasing shortness of breath, orthopnea with elevated pCO2. The patient is a poor historia n, unable to give me further details. PAST MEDICAL HISTORY: Includes COPD, bipolar disorder, atrial fibrillation, hypertension, hyperlipi demia. MEDICATIONS: Per chart. ALLERGIES: NONE. SOCIAL HISTORY: Positive tobacco history. Occasional alcohol, no history of drug use. FAMILY HISTORY: Noncontributory. SYSTEMS REVIEW: A 14-point review of systems was negative other than that mentioned above. PHYSICAL EXAMINATION: GENERAL: Elderly-appearing gentleman, comfortable at rest, no acute distress. VITAL SIGNS: Currently afebrile, pulse is 100, blood pressure 125/71, O2 saturation 96% on 6 liters . NECK: Supple, no JVD or lymphadenopathy. CARDIAC: S1, S2, no added sounds or murmurs. CHEST: Diminished air entry bilaterally. ABDOMEN: Soft, nontender. No guarding or rebound. EXTREMITIES: No cyanosis, clubbing or edema. NEUROLOGIC: Generalized weakness, but no focal deficits. IMPRESSION AND PLAN: 1. Acute on chronic exacerbation of chronic obstructive pulmonary disease. 2. Chronic hypercapnia. 3. Possible underlying obstructive sleep apnea. The patient will require: 1. Bronchodilators. 2. Steroids. 3. Check arterial blood gas. 4. Pulmonary toilet. 5. Aspiration precautions. 6. Rate control. 7. DVT and GI prophylaxis. Dictated By: DEMARIO LAU/ALYSON Conf#: [id number] DID#: [id number]
--- NOTE | 2016-09-24 15:18 | PN ---
DATE: 09/24/2016 SUBJECTIVE: No acute changes. Patient is awake, lying comfortably in bed, feels better. No fevers . WBC today 12.9, neutrophils 93.2, BUN 21, creatinine 0.65. ANTIMICROBIALS: Cefepime and Zithromax. PHYSICAL EXAMINATION: GENERAL: An obese, well-developed, middle-aged white man who is awake, in no distress. HEENT: Head atraumatic, normocephalic. Sclerae anicteric. Buccal mucosa dry. NECK: Supple. CHEST: Rise symmetrical. Breath sounds diminished to bases. HEART: S1, S2. ABDOMEN: Soft, bowel tones present. EXTREMITIES: No cyanosis. ASSESSMENT: 1. Pneumonia. 2. Chronic obstructive pulmonary disease exacerbation. 3. Obesity. 4. History of atrial fibrillation and bipolar disorder. PLAN: The patient remains stable, started on steroids, bronchodilators, pulmonary on case. Continu e present care. Pulmonary toilet, aspiration precautions. Dictated By: NANCY MOREL EKG TECHNICIAN for ARVIN VERDUZCO/ALYSON Conf#: [id number] DID#: [id number]
--- NOTE | 2016-09-24 15:59 | RADRPT ---
PROCEDURE: Chest radiograph series. CLINICAL INDICATION: Pneumonia TECHNIQUE: PA and lateral chest x-ray. COMPARISON: Chest radiograph 01/11/2015 FINDINGS: Heart size is within normal limits. Atherosclerotic calcifications are present. There is extensive interstitial opacities which are present dating back to 2014 consistent with chronic lung changes. There is a questionable superimposed increased linear densities in the right upper lung zone which m ay represent a superimposed infiltrate. There is mild bibasilar atelectasis. The osseous structures are unremarkable. IMPRESSION: 1. Chronic lung changes with suggested superimposed right upper lobe infiltrate. Recommend follow- up as clinically indicated. 2. Atherosclerotic vascular disease. RPTAT: AA .Shilo Huynh MD, MD Date Time Electronically viewed and signed by .Shilo Huynh MD, MD on 09/24/2016 15:59 .B/
[2016-09-24] MEDS: AZITHROMYCIN 500MG/NS (PMX) 250 ML IVPB SCH (18:22)
[2016-09-24 19:33] VITALS: BP 126/71; PULSE 78; RESP 20
[2016-09-24] MEDS: ATORVASTATIN 10 MG TAB PO SCH (21:27)
[2016-09-24] MEDS: MONTELUKAST 10 MG TAB PO SCH (21:28)
[2016-09-24] MEDS: DIVALPROEX (ER) 500 MG TAB PO SCH (21:28)
[2016-09-24] MEDS: ZOLPIDEM 5 MG TAB PO PRN (23:40)
[2016-09-25] MEDS: HYDROCODONE/APAP (10/325) TAB PO PRN ×2 (01:33→12:25)
[2016-09-25] MEDS: AL HYDROX/MG HYDROX/SIMETH 30 ML CUP PO SCH ×4 (05:35→23:17)
[2016-09-25] MEDS: METHYLPREDNISOLONE 125 MG INJ IV SCH ×4 (05:35→23:17)
[2016-09-25] MEDS: IPRATROPIUM (NEB) 0.5 MG/2.5 ML AMP NEB PRN (05:53)
[2016-09-25 06:24] LABS: ADD SCAN DIFF NO
[2016-09-25 07:21] LABS: BASOPHILS % 0.2 % (0.0-2.0); HEMATOCRIT 36.7 % (42.0-52.0); HEMOGLOBIN 11.3 g/dl (14.0-18.0); LYMPHOCYTES # 0.7 10^3/ul (0.8-2.9); LYMPHOCYTES % 4.1 % (15.0-51.0); MEAN CORPUSCULAR HGB CONC 30.8 g/dl (32.0-37.0); MEAN CORPUSCULAR VOLUME 100.8 fl (82.0-101.0); MEAN PLATELET VOLUME 9.5 fl (7.4-10.4); MONOCYTE # 0.6 10^3/ul (0.3-0.9); MONOCYTES % 3.7 % (0.0-11.0); NEUTROPHIL # 14.6 10^3/ul (1.6-7.5); NEUTROPHILS % 90.3 % (39.0-77.0); PLATELET COUNT 253 10^3/UL (140-415); RED BLOOD COUNT 3.64 10^6/ul (4.70-6.10); RED CELL DISTRIBUTION WIDTH 12.8 % (11.5-14.5); WHITE BLOOD COUNT 16.1 10^3/ul (4.8-10.8)
[2016-09-25 07:27] LABS: CALCIUM 8.5 mg/dl (8.4-10.2); CREATININE 0.6 mg/dl (0.61-1.24); MAGNESIUM 2.7 mg/dl (1.7-2.5); PHOSPHORUS 2.7 mg/dl (2.5-4.9); POTASSIUM 5.2 mmol/L (3.5-5.1)
[2016-09-25] MEDS: ALBUTEROL 0.083% (NEB) 2.5 MG/3 ML AMP HHN SCH ×4 (07:48→20:06)
[2016-09-25 08:13] VITALS: BP 131/73; RESP 20
[2016-09-25] MEDS: LORATADINE 10 MG TAB PO SCH (08:52)
[2016-09-25] MEDS: ASCORBIC ACID 500 MG TAB PO SCH (08:52)
[2016-09-25] MEDS: PANTOPRAZOLE (EC) 40 MG TAB PO SCH ×2 (08:52→20:34)
[2016-09-25] MEDS: AMIODARONE 200 MG TAB PO SCH (08:52)
[2016-09-25] MEDS: ASPIRIN 81 MG TAB PO SCH (08:52)
[2016-09-25] MEDS: MULTIVITAMINS THERAPEUTIC TAB PO SCH (08:53)
[2016-09-25] MEDS: METOPROLOL 25 MG TAB PO SCH ×2 (08:53→20:34)
[2016-09-25] MEDS: GABAPENTIN 100 MG CAP PO SCH ×3 (08:53→20:30)
[2016-09-25] MEDS: CEFEPIME 1GM/50 ML (PMX) 50 ML IVPB SCH ×2 (08:54→20:30)
[2016-09-25] MEDS: DIPHENHYDRAMINE 1%/ZINC 28.3 GM CR TOP SCH (08:55)
[2016-09-25] MEDS: ENOXAPARIN 40 MG/0.4 ML SYG SC SCH (08:57)
[2016-09-25 09:21] LABS: AADO2 Arterial 126.8 mmHg (7.0-24.0); Allen Test ACCEPTAB; Arterial Base Excess 13.9 mmol/L (-3.0-3); Arterial COHb 0.4 % (0.0-3.0); Arterial HCO3 43.2 mmol/L (22.0-26.0); Arterial MetHb 0.3 % (0.0-1.5); MODE NASAL CANNULA
--- NOTE | 2016-09-25 10:37 | CONS ---
Date/Time of Note Date/Time of Note DATE: 09/25/16 TIME: 10:29 Consult Date/Type/Reason Admit Date/Time Sep 23, 2016 at 13:31 Initial Consult Date Subjective Hypoxia and acute resp failure COPD exacerbation Pneumonia continue abx, bronchodilators and steroids. pulm is consulted. dc nicotin patch. dvt and gi prophylaxis 30 mins were spent on advanced directives and goals of care HPI/ROS Admit Date/Time Admit Date/Time Sep 23, 2016 at 13:31 Hx of Present Illness Patient is a 56-year-old male with COPD who presents with high carbon dioxide. He was also found to have pneumonia on chest x-ray. The patient was given Zithromax and cefepime empirically. I doubt sepsis at this time. The patient was given albuterol, Atrovent, and Solu-Medrol. The patient will be admitted to the care of Dr. Doherty who is covering for his primary doctor at this time. The patient will be admitted to a medical surgical bed. ROS All systems reviewed and are negative except as per history of present illness. soc hx: quit tobacco and alcohol few years ago family history: + pulm diseases code status: full Physical Exam Const: No acute distress Head: Atraumatic Eyes: Normal Conjunctiva ENT: Normal External Ears, Nose and Mouth. Neck: Full range of motion..~ No meningismus. Resp: Decreased breath sounds bilaterally Cardio: Regular rate and rhythm, no murmurs Abd: Soft, non tender, non distended. Normal bowel sounds Skin: No petechiae or rashes Back: No midline or flank tenderness Ext: No cyanosis, or edema Neur: Awake and alert 3 Psych: Normal Mood and Affect Objective Vital Signs Date Time Temp Pulse Resp B/P Pulse Ox O2 Delivery O2 Flow Rate FiO2 09/25/16 08:13 98.6 92 20 131/73 97 09/25/16 07:48 Nasal Cannula 6.0 Intake and Output 09/24/16 09/24/16 09/25/16 15:00 23:00 07:00 Intake Total 50 ml 1810 ml 420 ml Output Total 1100 ml 700 ml Balance 50 ml 710 ml -280 ml Results/Medications Result Diagram: 09/25/16 0526 09/25/16 0526 Results 24 hrs Laboratory Tests Test 09/25/16 05:26 09/25/16 07:00 White Blood Count 16.1 #H Red Blood Count 3.64 L Hemoglobin 11.3 L Hematocrit 36.7 L Mean Corpuscular Volume 100.8 Mean Corpuscular Hemoglobin 31.0 Mean Corpuscular Hemoglobin Concent 30.8 L Red Cell Distribution Width 12.8 Platelet Count 253 Mean Platelet Volume 9.5 Neutrophils % 90.3 H Lymphocytes % 4.1 L Monocytes % 3.7 Eosinophils % 0.0 Basophils % 0.2 Nucleated Red Blood Cells % 0.0 Neutrophils # 14.6 H Lymphocytes # 0.7 L Monocytes # 0.6 Eosinophils # 0.0 Basophils # 0.0 Nucleated Red Blood Cells # 0.0 Sodium Level 142 Potassium Level 5.2 H Chloride Level 95 L Carbon Dioxide Level 43 *H Anion Gap 9 Blood Urea Nitrogen 28 H Creatinine 0.60 L Glucose Level 155 Calcium Level 8.5 Phosphorus Level 2.7 Magnesium Level 2.7 H Blood Gas Specimen Source Blood arterial Arterial Blood Date Drawn 09/25/2016 9:00:16 AM Arterial Blood pH (Temp corrected) 7.372 Arterial Blood pCO2 (Temp correct) 76.1 H Arterial Blood pO2 (Temp corrected) 63.6 L Arterial Blood HCO3 43.2 *H Arterial Blood Base Excess 13.9 H Arterial Blood Oxygen Saturation 91.6 L Elijah Test ACCEPTAB Arterial Blood Gas Puncture Site Right Radial Arterial Blood Carboxyhemoglobin 0.4 Arterial Blood Methemoglobin 0.3 Blood Gas A-a O2 Differential 126.8 H Oxyhemoglobin Percent 91.0 L Total Hemoglobin 15.0 Blood Gas Temperature 37.0 Blood Gas Modality NASAL CANNULA FiO2 39.0 Blood Gas Critical Value Read Back Teresa ROCHA RN Blood Gas Notified Whom DT Blood Gas Notified Time 09/25/2016 9:17:47 AM Medications Current Medications Ondansetron HCl (Zofran Inj) 4 mg Q6H PRN IV NAUSEA AND/OR VOMITING; Start 09/23 at 18:00 Acetaminophen (Tylenol Tab) 650 mg Q6H PRN PO PAIN LEVEL 1-3 OR FEVER Last administered on 09/25/16 02:45; Admin Dose 650 MG; Start 09/23/16 at 18:00 Zolpidem Tartrate (Ambien) 5 mg QHS PRN PO SLEEP Last administered on 09/24/16 23:40; Admin Dose 5 MG; Start 09/23/16 at 18:00 Enoxaparin Sodium (Lovenox) 40 mg DAILY SC Last administered on 09/25/16 08:57 ; Admin Dose 40 MG; Start 09/24/16 at 09:00 Acetaminophen (Tylenol Tab) 650 mg Q4H PRN PO MILD PAIN LEVEL 1-3; Start at 18:00 Acetaminophen (Tylenol Tab) 1,000 mg Q4H PRN PO PAIN LEVEL 4-6/10; Start at 18:00 Amiodarone HCl (Cordarone) 200 mg DAILY PO Last administered on 09/25/16 08:52 ; Admin Dose 200 MG; Start 09/24/16 at 09:00 Ascorbic Acid (Vitamin C) 500 mg DAILY PO Last administered on 09/25/16 08:52; Admin Dose 500 MG; Start 09/24/16 at 09:00 Aspirin (Aspirin) 81 mg DAILY PO Last administered on 09/25/16 08:52; Admin Dose 81 MG; Start 09/24/16 at 09:00 Atorvastatin Calcium (Lipitor) 5 mg QHS PO Last administered on 09/24/16 21:27 ; Admin Dose 5 MG; Start 09/23/16 at 21:00 Bisacodyl (Dulcolax Supp) 10 mg DAILY PRN [place] CONSTIPATION; Start 09/23/16 at 18: 00 Diphenhydramine/ Zinc Oxide (Benadryl 1% Cr) 1 applic DAILY TOP ; Start 09/24/16 at 09:00 Divalproex Sodium (Depakote Er) 1,000 mg QHS PO Last administered on 09/24/16 21:28; Admin Dose 1,000 MG; Start 09/23/16 at 21:00 Docusate Sodium (Colace) 200 mg QHS PRN PO CONSTIPATION; Start 09/23/16 at 18:00 Gabapentin (Neurontin) 200 mg TID PO Last administered on 09/25/16 08:53; Admin Dose 200 MG; Start 09/23/16 at 21:00 Acetaminophen/ Hydrocodone Bitart ([place] (10/325)) 1 tab Q8H PRN PO PAIN LEVEL 7-9/10 Last administered on 09/25/16 01:33; Admin Dose 1 TAB; Start 09/23/16 at 18:00 Loratadine (Claritin) 10 mg DAILY PO Last administered on 09/25/16 08:52; Admin Dose 10 MG; Start 09/24/16 at 09:00 Al Hydrox/Mg Hydrox/Simethicone (Mag-Al Plus) 30 ml Q6H PO Last administered on 09/25/16 05:35; Admin Dose 30 ML; Start 09/23/16 at 18:00 Magnesium Hydroxide (Milk Of Mag) 30 ml DAILY PRN [place] CONSTIPATION; Start at 18:00 Metoprolol Tartrate (Lopressor) 25 mg BID PO Last administered on 09/25/16 08: 53; Admin Dose 25 MG; Start 09/23/16 at 21:00 Montelukast Sodium (Singulair) 10 mg QHS PO Last administered on 09/24/16 21:28 ; Admin Dose 10 MG; Start 09/23/16 at 21:00 Multivitamins Therapeutic (Theragran) 1 tab DAILY PO Last administered on 08:53; Admin Dose 1 TAB; Start 09/24/16 at 09:00 Sodium Biphosphate/ Sodium Phosphate (Fleet Enema) 118 ml prn PRN [place] CONSTIPATION; Start 09/23/16 at 18:00 Pantoprazole 40 mg 40 mg BID PO Last administered on 09/25/16 08:52; Admin Dose 40 MG; Start 09/23/16 at 21:00 Cefepime HCl 50 ml @ 100 mls/hr Q12 IVPB Last administered on 09/25/16 08:54; Admin Dose 100 MLS/HR; Start 09/23/16 at 21:00 Azithromycin (Zithromax 500mg/ NS (Pmx)) 250 ml @ 250 mls/hr Q24H IVPB Last administered on 09/24/16 18:22; Admin Dose 250 MLS/HR; Start 09/23/16 at 18:00 Methylprednisolone Sodium Succinate (Solu-Medrol) 60 mg Q6 IV Last administered on 09/25/16 05:35; Admin Dose 60 MG; Start 09/23/16 at 18:00 Assessment/Plan Chief Complaint/Hosp Course 1. Acute on chronic exacerbation of chronic obstructive pulmonary disease. continue abx, bronchodilators and steroids. pulm is consulted. dc nicotin patch. 2. Chronic hypercapnia. 3. Possible underlying obstructive sleep apnea. 4. possible healthcare associated pneumonia 5. History of arrhythmia, currently in sinus rhythm. 6. Coronary artery disease. Continue medical management. 7. Anemia of chronic disease. Continue to monitor H and H levels. 8. Diastolic heart failure, improved. Continue current medical management. 9. dvt and gi prophylaxis Problems: SCOTT DOHERTY MD Sep 25, 2016 10:37
--- NOTE | 2016-09-25 11:30 | CONS ---
Date/Time of Note Date/Time of Note DATE: 09/25/16 TIME: 11:28 Assessment/Plan Assessment/Plan Chief Complaint/Hosp Course ID PROGRESS NOTE CURRENT ABX=> Cefepime + Azith 24H INTERVAL SUMMARY * A/A/O, overweight -- wants to go home [facility] -- I told him as far as I am concerned he can go home on PO ABX Levaquin * Up on feet walking around his bed w/supplemental O2 via NC, no wheezing, (+) bronchial cough -- wants to go back to bed * No fevers, WBC rising on IV steroids PHYSICAL EXAMINATION: GENERAL: VSS, NAD, Afebrile HEENT: Unremarkable NECK: Supple, trachea midline. CHEST: Rise symmetrical, without dyspnea on observation HEART: Pulse RRR ABDOMEN: Soft EXTREMITIES: Warm ID ASSESSMENT 56 yo M PMHx Bipolar disorder admit with: 1. Pneumonia=> CXR interstitial disease * Respiratory cx (-) = normal unique 2. Chronic obstructive pulmonary disease exacerbation. 3. Tobaccoism 4. History of atrial fibrillation MRSA Nares ->pending INVASIVES: PIV ABX ALLERGY: Vanco IV CURRENT ABX: TOTAL ABX DAY #3 => Cefepime + Azith ID RECOMMENDATIONS 1. Continue current ABX 2. When cleared by primary patient may DC home on Levaquin 500mg po daily x 5 days Problems: Consultation Date/Type/Reason Admit Date/Time Sep 23, 2016 at 13:31 Initial Consult Date Type of Consultation: ID Exam/Review of Systems Vital Signs Vitals Vital Signs Date Time Temp Pulse Resp B/P Pulse Ox O2 Delivery O2 Flow Rate FiO2 09/25/16 08:13 98.6 92 20 131/73 97 09/25/16 07:48 Nasal Cannula 6.0 Intake and Output 09/24/16 09/24/16 09/25/16 15:00 23:00 07:00 Intake Total 50 ml 1810 ml 420 ml Output Total 1100 ml 700 ml Balance 50 ml 710 ml -280 ml Results Result Diagram: 09/25/16 0526 09/25/16 0526 Results 24 hrs Laboratory Tests Test 09/25/16 05:26 09/25/16 07:00 White Blood Count 16.1 #H Red Blood Count 3.64 L Hemoglobin 11.3 L Hematocrit 36.7 L Mean Corpuscular Volume 100.8 Mean Corpuscular Hemoglobin 31.0 Mean Corpuscular Hemoglobin Concent 30.8 L Red Cell Distribution Width 12.8 Platelet Count 253 Mean Platelet Volume 9.5 Neutrophils % 90.3 H Lymphocytes % 4.1 L Monocytes % 3.7 Eosinophils % 0.0 Basophils % 0.2 Nucleated Red Blood Cells % 0.0 Neutrophils # 14.6 H Lymphocytes # 0.7 L Monocytes # 0.6 Eosinophils # 0.0 Basophils # 0.0 Nucleated Red Blood Cells # 0.0 Sodium Level 142 Potassium Level 5.2 H Chloride Level 95 L Carbon Dioxide Level 43 *H Anion Gap 9 Blood Urea Nitrogen 28 H Creatinine 0.60 L Glucose Level 155 Calcium Level 8.5 Phosphorus Level 2.7 Magnesium Level 2.7 H Blood Gas Specimen Source Blood arterial Arterial Blood Date Drawn 09/25/2016 9:00:16 AM Arterial Blood pH (Temp corrected) 7.372 Arterial Blood pCO2 (Temp correct) 76.1 H Arterial Blood pO2 (Temp corrected) 63.6 L Arterial Blood HCO3 43.2 *H Arterial Blood Base Excess 13.9 H Arterial Blood Oxygen Saturation 91.6 L Elijah Test ACCEPTAB Arterial Blood Gas Puncture Site Right Radial Arterial Blood Carboxyhemoglobin 0.4 Arterial Blood Methemoglobin 0.3 Blood Gas A-a O2 Differential 126.8 H Oxyhemoglobin Percent 91.0 L Total Hemoglobin 15.0 Blood Gas Temperature 37.0 Blood Gas Modality NASAL CANNULA FiO2 39.0 Blood Gas Critical Value Read Back M AJ RN Blood Gas Notified Whom DT Blood Gas Notified Time 09/25/2016 9:17:47 AM Medications Medications Current Medications Ondansetron HCl (Zofran Inj) 4 mg Q6H PRN IV NAUSEA AND/OR VOMITING; Start 09/23 at 18:00 Acetaminophen (Tylenol Tab) 650 mg Q6H PRN PO PAIN LEVEL 1-3 OR FEVER Last administered on 09/25/16 02:45; Admin Dose 650 MG; Start 09/23/16 at 18:00 Zolpidem Tartrate (Ambien) 5 mg QHS PRN PO SLEEP Last administered on 09/24/16 23:40; Admin Dose 5 MG; Start 09/23/16 at 18:00 Enoxaparin Sodium (Lovenox) 40 mg DAILY SC Last administered on 09/25/16 08:57 ; Admin Dose 40 MG; Start 09/24/16 at 09:00 Acetaminophen (Tylenol Tab) 650 mg Q4H PRN PO MILD PAIN LEVEL 1-3; Start at 18:00 Acetaminophen (Tylenol Tab) 1,000 mg Q4H PRN PO PAIN LEVEL 4-6/10; Start at 18:00 Amiodarone HCl (Cordarone) 200 mg DAILY PO Last administered on 09/25/16 08:52 ; Admin Dose 200 MG; Start 09/24/16 at 09:00 Ascorbic Acid (Vitamin C) 500 mg DAILY PO Last administered on 09/25/16 08:52; Admin Dose 500 MG; Start 09/24/16 at 09:00 Aspirin (Aspirin) 81 mg DAILY PO Last administered on 09/25/16 08:52; Admin Dose 81 MG; Start 09/24/16 at 09:00 Atorvastatin Calcium (Lipitor) 5 mg QHS PO Last administered on 09/24/16 21:27 ; Admin Dose 5 MG; Start 09/23/16 at 21:00 Bisacodyl (Dulcolax Supp) 10 mg DAILY PRN [place] CONSTIPATION; Start 09/23/16 at 18: 00 Diphenhydramine/ Zinc Oxide (Benadryl 1% Cr) 1 applic DAILY TOP ; Start 09/24/16 at 09:00 Divalproex Sodium (Depakote Er) 1,000 mg QHS PO Last administered on 09/24/16 21:28; Admin Dose 1,000 MG; Start 09/23/16 at 21:00 Docusate Sodium (Colace) 200 mg QHS PRN PO CONSTIPATION; Start 09/23/16 at 18:00 Gabapentin (Neurontin) 200 mg TID PO Last administered on 09/25/16 08:53; Admin Dose 200 MG; Start 09/23/16 at 21:00 Acetaminophen/ Hydrocodone Bitart ([place] (10/325)) 1 tab Q8H PRN PO PAIN LEVEL 7-9/10 Last administered on 09/25/16 01:33; Admin Dose 1 TAB; Start 09/23/16 at 18:00 Loratadine (Claritin) 10 mg DAILY PO Last administered on 09/25/16 08:52; Admin Dose 10 MG; Start 09/24/16 at 09:00 Al Hydrox/Mg Hydrox/Simethicone (Mag-Al Plus) 30 ml Q6H PO Last administered on 09/25/16 05:35; Admin Dose 30 ML; Start 09/23/16 at 18:00 Magnesium Hydroxide (Milk Of Mag) 30 ml DAILY PRN PO CONSTIPATION; Start at 18:00 Metoprolol Tartrate (Lopressor) 25 mg BID PO Last administered on 09/25/16 08: 53; Admin Dose 25 MG; Start 09/23/16 at 21:00 Montelukast Sodium (Singulair) 10 mg QHS PO Last administered on 09/24/16 21:28 ; Admin Dose 10 MG; Start 09/23/16 at 21:00 Multivitamins Therapeutic (Theragran) 1 tab DAILY PO Last administered on 08:53; Admin Dose 1 TAB; Start 09/24/16 at 09:00 Sodium Biphosphate/ Sodium Phosphate (Fleet Enema) 118 ml prn PRN [place] CONSTIPATION; Start 09/23/16 at 18:00 Pantoprazole 40 mg 40 mg BID PO Last administered on 09/25/16 08:52; Admin Dose 40 MG; Start 09/23/16 at 21:00 Cefepime HCl 50 ml @ 100 mls/hr Q12 IVPB Last administered on 09/25/16 08:54; Admin Dose 100 MLS/HR; Start 09/23/16 at 21:00 Azithromycin (Zithromax 500mg/ NS (Pmx)) 250 ml @ 250 mls/hr Q24H IVPB Last administered on 09/24/16 18:22; Admin Dose 250 MLS/HR; Start 09/23/16 at 18:00 Methylprednisolone Sodium Succinate (Solu-Medrol) 60 mg Q6 IV Last administered on 09/25/16 05:35; Admin Dose 60 MG; Start 09/23/16 at 18:00 RAUL GOMEZ NP Sep 25, 2016 11:30
--- NOTE | 2016-09-25 12:02 | RADRPT ---
PROCEDURE: XR Chest. CLINICAL INDICATION: Shortness of breath. TECHNIQUE: Single frontal view. COMPARISON: 09/24/2016. FINDINGS: There is extensive interstitial disease bilaterally, unchanged. Mild bibasilar atelectasis is uncha nged. The lungs are otherwise clear. The heart size is normal. There is calcification in the aorta consistent with atherosclerosis. There is no pleural effusion. There is no pneumothorax. IMPRESSION: 1. No change from 09/24/2016. RPTAT: QQ .Immanuel Dean MD, MD Date Time Electronically viewed and signed by .Immanuel Dean MD, MD on 09/25/2016 12:02 .R/
[2016-09-25 13:00] VITALS: PULSE 100
[2016-09-25 17:10] VITALS: PULSE 109
[2016-09-25] MEDS: AZITHROMYCIN 500MG/NS (PMX) 250 ML IVPB SCH (17:31)
--- NOTE | 2016-09-25 19:09 | CONS ---
Date/Time of Note Date/Time of Note DATE: 09/25/16 TIME: 19:08 Consult Date/Type/Reason Admit Date/Time Sep 23, 2016 at 13:31 Initial Consult Date Type of Consultation: pulm Subjective No events. Objective Vital Signs Date Time Temp Pulse Resp B/P Pulse Ox O2 Delivery O2 Flow Rate FiO2 09/25/16 17:11 109 21 99 30 09/25/16 12:00 6.0 09/25/16 11:33 Nasal Cannula 09/25/16 08:13 98.6 131/73 Intake and Output 09/24/16 09/24/16 09/25/16 15:00 23:00 07:00 Intake Total 50 ml 1810 ml 420 ml Output Total 1100 ml 700 ml Balance 50 ml 710 ml -280 ml Exam HEENT: Neck supple; no JVD; no LAD CVS: RRR, S1 and S2 CHEST: decreased BS b/l ABD: Soft, NT, + BS EXT: No c/c/e Results/Medications Result Diagram: 09/25/16 0526 09/25/16 0526 Results 24 hrs Laboratory Tests Test 09/25/16 05:26 09/25/16 07:00 White Blood Count 16.1 #H Red Blood Count 3.64 L Hemoglobin 11.3 L Hematocrit 36.7 L Mean Corpuscular Volume 100.8 Mean Corpuscular Hemoglobin 31.0 Mean Corpuscular Hemoglobin Concent 30.8 L Red Cell Distribution Width 12.8 Platelet Count 253 Mean Platelet Volume 9.5 Neutrophils % 90.3 H Lymphocytes % 4.1 L Monocytes % 3.7 Eosinophils % 0.0 Basophils % 0.2 Nucleated Red Blood Cells % 0.0 Neutrophils # 14.6 H Lymphocytes # 0.7 L Monocytes # 0.6 Eosinophils # 0.0 Basophils # 0.0 Nucleated Red Blood Cells # 0.0 Sodium Level 142 Potassium Level 5.2 H Chloride Level 95 L Carbon Dioxide Level 43 *H Anion Gap 9 Blood Urea Nitrogen 28 H Creatinine 0.60 L Glucose Level 155 Calcium Level 8.5 Phosphorus Level 2.7 Magnesium Level 2.7 H Blood Gas Specimen Source Blood arterial Arterial Blood Date Drawn 09/25/2016 9:00:16 AM Arterial Blood pH (Temp corrected) 7.372 Arterial Blood pCO2 (Temp correct) 76.1 H Arterial Blood pO2 (Temp corrected) 63.6 L Arterial Blood HCO3 43.2 *H Arterial Blood Base Excess 13.9 H Arterial Blood Oxygen Saturation 91.6 L Elijah Test ACCEPTAB Arterial Blood Gas Puncture Site Right Radial Arterial Blood Carboxyhemoglobin 0.4 Arterial Blood Methemoglobin 0.3 Blood Gas A-a O2 Differential 126.8 H Oxyhemoglobin Percent 91.0 L Total Hemoglobin 15.0 Blood Gas Temperature 37.0 Blood Gas Modality NASAL CANNULA FiO2 39.0 Blood Gas Critical Value Read Back M AJ PABON Blood Gas Notified Whom DT Blood Gas Notified Time 09/25/2016 9:17:47 AM Medications Current Medications Ondansetron HCl (Zofran Inj) 4 mg Q6H PRN IV NAUSEA AND/OR VOMITING; Start 09/23 at 18:00 Acetaminophen (Tylenol Tab) 650 mg Q6H PRN PO PAIN LEVEL 1-3 OR FEVER Last administered on 09/25/16 02:45; Admin Dose 650 MG; Start 09/23/16 at 18:00 Zolpidem Tartrate (Ambien) 5 mg QHS PRN PO SLEEP Last administered on 09/24/16 23:40; Admin Dose 5 MG; Start 09/23/16 at 18:00 Enoxaparin Sodium (Lovenox) 40 mg DAILY SC Last administered on 09/25/16 08:57 ; Admin Dose 40 MG; Start 09/24/16 at 09:00 Acetaminophen (Tylenol Tab) 650 mg Q4H PRN PO MILD PAIN LEVEL 1-3; Start at 18:00 Acetaminophen (Tylenol Tab) 1,000 mg Q4H PRN PO PAIN LEVEL 4-6/10; Start at 18:00 Amiodarone HCl (Cordarone) 200 mg DAILY PO Last administered on 09/25/16 08:52 ; Admin Dose 200 MG; Start 09/24/16 at 09:00 Ascorbic Acid (Vitamin C) 500 mg DAILY PO Last administered on 09/25/16 08:52; Admin Dose 500 MG; Start 09/24/16 at 09:00 Aspirin (Aspirin) 81 mg DAILY PO Last administered on 09/25/16 08:52; Admin Dose 81 MG; Start 09/24/16 at 09:00 Atorvastatin Calcium (Lipitor) 5 mg QHS PO Last administered on 09/24/16 21:27 ; Admin Dose 5 MG; Start 09/23/16 at 21:00 Bisacodyl (Dulcolax Supp) 10 mg DAILY PRN [place] CONSTIPATION; Start 09/23/16 at 18: 00 Diphenhydramine/ Zinc Oxide (Benadryl 1% Cr) 1 applic DAILY TOP ; Start 09/24/16 at 09:00 Divalproex Sodium (Depakote Er) 1,000 mg QHS PO Last administered on 09/24/16 21:28; Admin Dose 1,000 MG; Start 09/23/16 at 21:00 Docusate Sodium (Colace) 200 mg QHS PRN PO CONSTIPATION; Start 09/23/16 at 18:00 Gabapentin (Neurontin) 200 mg TID PO Last administered on 09/25/16 12:24; Admin Dose 200 MG; Start 09/23/16 at 21:00 Acetaminophen/ Hydrocodone Bitart ([place] (10/325)) 1 tab Q8H PRN PO PAIN LEVEL 7-9/10 Last administered on 09/25/16 12:25; Admin Dose 1 TAB; Start 09/23/16 at 18:00 Loratadine (Claritin) 10 mg DAILY PO Last administered on 09/25/16 08:52; Admin Dose 10 MG; Start 09/24/16 at 09:00 Al Hydrox/Mg Hydrox/Simethicone (Mag-Al Plus) 30 ml Q6H PO Last administered on 09/25/16 17:30; Admin Dose 30 ML; Start 09/23/16 at 18:00 Magnesium Hydroxide (Milk Of Mag) 30 ml DAILY PRN PO CONSTIPATION; Start at 18:00 Metoprolol Tartrate (Lopressor) 25 mg BID PO Last administered on 09/25/16 08: 53; Admin Dose 25 MG; Start 09/23/16 at 21:00 Montelukast Sodium (Singulair) 10 mg QHS PO Last administered on 09/24/16 21:28 ; Admin Dose 10 MG; Start 09/23/16 at 21:00 Multivitamins Therapeutic (Theragran) 1 tab DAILY PO Last administered on 08:53; Admin Dose 1 TAB; Start 09/24/16 at 09:00 Sodium Biphosphate/ Sodium Phosphate (Fleet Enema) 118 ml prn PRN [place] CONSTIPATION; Start 09/23/16 at 18:00 Pantoprazole 40 mg 40 mg BID PO Last administered on 09/25/16 08:52; Admin Dose 40 MG; Start 09/23/16 at 21:00 Cefepime HCl 50 ml @ 100 mls/hr Q12 IVPB Last administered on 09/25/16 08:54; Admin Dose 100 MLS/HR; Start 09/23/16 at 21:00 Azithromycin (Zithromax 500mg/ NS (Pmx)) 250 ml @ 250 mls/hr Q24H IVPB Last administered on 09/25/16 17:31; Admin Dose 250 MLS/HR; Start 09/23/16 at 18:00 Methylprednisolone Sodium Succinate (Solu-Medrol) 60 mg Q6 IV Last administered on 09/25/16 17:30; Admin Dose 60 MG; Start 09/23/16 at 18:00 Assessment/Plan Additional Assessment/Plan IMPRESSION: 1. Acute on chronic exacerbation of chronic obstructive pulmonary disease. 2. Chronic hypercapnia. 3. Possible underlying obstructive sleep apnea. RECS: 1. Taper CS 2. Titrate FiO2 to SpO2 88-92 EVONNE PICKERING MD Sep 25, 2016 19:09
[2016-09-25 19:47] VITALS: BP 142/77; RESP 20
[2016-09-25 20:11] VITALS: PULSE 102
[2016-09-25] MEDS: ATORVASTATIN 10 MG TAB PO SCH (20:31)
[2016-09-25] MEDS: DIVALPROEX (ER) 500 MG TAB PO SCH (20:32)
[2016-09-25] MEDS: MONTELUKAST 10 MG TAB PO SCH (20:34)
[2016-09-25 23:40] VITALS: PULSE 105
[2016-09-26 03:35] VITALS: PULSE 100
[2016-09-26] MEDS: AL HYDROX/MG HYDROX/SIMETH 30 ML CUP PO SCH ×3 (06:02→17:35)
[2016-09-26 07:33] VITALS: BP 137/80; RESP 20
[2016-09-26] MEDS: DIPHENHYDRAMINE 1%/ZINC 28.3 GM CR TOP SCH (09:00)
[2016-09-26] MEDS: ASCORBIC ACID 500 MG TAB PO SCH (09:05)
[2016-09-26] MEDS: LORATADINE 10 MG TAB PO SCH (09:05)
[2016-09-26] MEDS: ASPIRIN 81 MG TAB PO SCH (09:05)
[2016-09-26] MEDS: GABAPENTIN 100 MG CAP PO SCH ×3 (09:06→20:46)
[2016-09-26] MEDS: HYDROCODONE/APAP (10/325) TAB PO PRN (09:06)
[2016-09-26] MEDS: AMIODARONE 200 MG TAB PO SCH (09:07)
[2016-09-26] MEDS: METHYLPREDNISOLONE 125 MG INJ IV SCH (09:08)
[2016-09-26] MEDS: CEFEPIME 1GM/50 ML (PMX) 50 ML IVPB SCH ×2 (09:09→20:42)
[2016-09-26] MEDS: MULTIVITAMINS THERAPEUTIC TAB PO SCH (09:12)
[2016-09-26] MEDS: METOPROLOL 25 MG TAB PO SCH ×2 (09:13→20:48)
[2016-09-26] MEDS: PANTOPRAZOLE (EC) 40 MG TAB PO SCH ×2 (09:13→20:46)
[2016-09-26] MEDS: ENOXAPARIN 40 MG/0.4 ML SYG SC SCH (09:29)
[2016-09-26] MEDS: ALBUTEROL 0.083% (NEB) 2.5 MG/3 ML AMP HHN SCH ×4 (09:35→19:23)
--- NOTE | 2016-09-26 11:46 | CONS ---
Date/Time of Note Date/Time of Note DATE: 09/26/16 TIME: 11:44 Consult Date/Type/Reason Admit Date/Time Sep 23, 2016 at 13:31 Type of Consultation: neph Subjective Patient is a 56-year-old male with COPD who presents with hypercarbic resp failure. He was also found to have pneumonia on chest x-ray. The patient was given Zithromax and cefepime empirically. The patient was given albuterol, Atrovent, and Solu-Medrol. feeling better. concerned about his recent weight gain. ROS All systems reviewed and are negative except as per history of present illness. Const: No acute distress Head: Atraumatic Eyes: Normal Conjunctiva ENT: Normal External Ears, Nose and Mouth. Neck: Full range of motion..~ No meningismus. Resp: Decreased breath sounds bilaterally Cardio: Regular rate and rhythm, no murmurs Abd: Soft, non tender, non distended. Normal bowel sounds Skin: No petechiae or rashes Back: No midline or flank tenderness Ext: No cyanosis, or edema Neur: Awake and alert 3 Psych: Normal Mood and Affect Objective Vital Signs Date Time Temp Pulse Resp B/P Pulse Ox O2 Delivery O2 Flow Rate FiO2 09/26/16 09:36 104 20 88 Nasal Cannula 5.0 09/26/16 07:33 97.9 137/80 09/26/16 03:35 30 Intake and Output 09/25/16 09/25/16 09/26/16 15:00 23:00 07:00 Intake Total 1860 ml 1490 ml Output Total 950 ml 1275 ml Balance 910 ml 215 ml Results/Medications Result Diagram: 09/25/16 0526 09/25/16 0526 Medications Current Medications Ondansetron HCl (Zofran Inj) 4 mg Q6H PRN IV NAUSEA AND/OR VOMITING; Start 09/23 at 18:00 Acetaminophen (Tylenol Tab) 650 mg Q6H PRN PO PAIN LEVEL 1-3 OR FEVER Last administered on 09/25/16 02:45; Admin Dose 650 MG; Start 09/23/16 at 18:00 Zolpidem Tartrate (Ambien) 5 mg QHS PRN PO SLEEP Last administered on 09/24/16 23:40; Admin Dose 5 MG; Start 09/23/16 at 18:00 Enoxaparin Sodium (Lovenox) 40 mg DAILY SC Last administered on 09/26/16 09:29 ; Admin Dose 40 MG; Start 09/24/16 at 09:00 Acetaminophen (Tylenol Tab) 650 mg Q4H PRN PO MILD PAIN LEVEL 1-3; Start at 18:00 Acetaminophen (Tylenol Tab) 1,000 mg Q4H PRN PO PAIN LEVEL 4-6/10; Start at 18:00 Amiodarone HCl (Cordarone) 200 mg DAILY PO Last administered on 09/26/16 09:07 ; Admin Dose 200 MG; Start 09/24/16 at 09:00 Ascorbic Acid (Vitamin C) 500 mg DAILY PO Last administered on 09/26/16 09:05; Admin Dose 500 MG; Start 09/24/16 at 09:00 Aspirin (Aspirin) 81 mg DAILY PO Last administered on 09/26/16 09:05; Admin Dose 81 MG; Start 09/24/16 at 09:00 Atorvastatin Calcium (Lipitor) 5 mg QHS PO Last administered on 09/25/16 20:31 ; Admin Dose 5 MG; Start 09/23/16 at 21:00 Bisacodyl (Dulcolax Supp) 10 mg DAILY PRN [place] CONSTIPATION; Start 09/23/16 at 18: 00 Diphenhydramine/ Zinc Oxide (Benadryl 1% Cr) 1 applic DAILY TOP ; Start 09/24/16 at 09:00 Divalproex Sodium (Depakote Er) 1,000 mg QHS PO Last administered on 09/25/16 20:32; Admin Dose 1,000 MG; Start 09/23/16 at 21:00 Docusate Sodium (Colace) 200 mg QHS PRN PO CONSTIPATION; Start 09/23/16 at 18:00 Gabapentin (Neurontin) 200 mg TID PO Last administered on 09/26/16 09:06; Admin Dose 200 MG; Start 09/23/16 at 21:00 Acetaminophen/ Hydrocodone Bitart ([place] (10/325)) 1 tab Q8H PRN PO PAIN LEVEL 7-9/10 Last administered on 09/26/16 09:06; Admin Dose 1 TAB; Start 09/23/16 at 18:00 Loratadine (Claritin) 10 mg DAILY PO Last administered on 09/26/16 09:05; Admin Dose 10 MG; Start 09/24/16 at 09:00 Al Hydrox/Mg Hydrox/Simethicone (Mag-Al Plus) 30 ml Q6H PO Last administered on 09/26/16 06:02; Admin Dose 30 ML; Start 09/23/16 at 18:00 Magnesium Hydroxide (Milk Of Mag) 30 ml DAILY PRN PO CONSTIPATION; Start at 18:00 Metoprolol Tartrate (Lopressor) 25 mg BID PO Last administered on 09/26/16 09: 13; Admin Dose 25 MG; Start 09/23/16 at 21:00 Montelukast Sodium (Singulair) 10 mg QHS PO Last administered on 09/25/16 20:34 ; Admin Dose 10 MG; Start 09/23/16 at 21:00 Multivitamins Therapeutic (Theragran) 1 tab DAILY PO Last administered on 09:12; Admin Dose 1 TAB; Start 09/24/16 at 09:00 Sodium Biphosphate/ Sodium Phosphate (Fleet Enema) 118 ml prn PRN [place] CONSTIPATION; Start 09/23/16 at 18:00 Pantoprazole 40 mg 40 mg BID PO Last administered on 09/26/16 09:13; Admin Dose 40 MG; Start 09/23/16 at 21:00 Cefepime HCl 50 ml @ 100 mls/hr Q12 IVPB Last administered on 09/26/16 09:09; Admin Dose 100 MLS/HR; Start 09/23/16 at 21:00 Azithromycin (Zithromax 500mg/ NS (Pmx)) 250 ml @ 250 mls/hr Q24H IVPB Last administered on 09/25/16 17:31; Admin Dose 250 MLS/HR; Start 09/23/16 at 18:00 Methylprednisolone Sodium Succinate (Solu-Medrol) 60 mg BID IV Last administered on 09/26/16 09:08; Admin Dose 60 MG; Start 09/25/16 at 23:00 Assessment/Plan Chief Complaint/Hosp Course 1. Acute on chronic exacerbation of chronic obstructive pulmonary disease. continue abx, bronchodilators and steroids. pulm is consulted to help with taper.. dc nicotin patch. 2. Chronic hypercapnia. 3. Possible underlying obstructive sleep apnea. 4. possible healthcare associated pneumonia- cont abx. 5. History of arrhythmia, currently in sinus rhythm. 6. Coronary artery disease. Continue medical management. 7. Anemia of chronic disease. Continue to monitor H and H levels. 8. Diastolic heart failure, improved. Continue current medical management. 9. dvt and gi prophylaxis Problems: SCOTT DOHERTY MD Sep 26, 2016 11:46
--- NOTE | 2016-09-26 15:45 | CONS ---
Date/Time of Note Date/Time of Note DATE: 09/26/16 TIME: 15:44 Consult Date/Type/Reason Admit Date/Time Sep 23, 2016 at 13:31 Type of Consultation: Pulm Subjective Doing okay, wants to go home. A bit jittery. Objective Vital Signs Date Time Temp Pulse Resp B/P Pulse Ox O2 Delivery O2 Flow Rate FiO2 09/26/16 15:19 5.0 09/26/16 13:48 98 20 93 Nasal Cannula 09/26/16 07:33 97.9 137/80 09/26/16 03:35 30 Intake and Output 09/25/16 09/25/16 09/26/16 15:00 23:00 07:00 Intake Total 1860 ml 1490 ml Output Total 950 ml 1275 ml Balance 910 ml 215 ml Exam HEENT: Neck supple; no JVD; no LAD CVS: RRR, S1 and S2 CHEST: decreased BS b/l ABD: Soft, NT, + BS EXT: No c/c/e Results/Medications Result Diagram: 09/25/16 0526 09/25/16 0526 Medications Current Medications Ondansetron HCl (Zofran Inj) 4 mg Q6H PRN IV NAUSEA AND/OR VOMITING; Start 09/23 at 18:00 Acetaminophen (Tylenol Tab) 650 mg Q6H PRN PO PAIN LEVEL 1-3 OR FEVER Last administered on 09/25/16 02:45; Admin Dose 650 MG; Start 09/23/16 at 18:00 Zolpidem Tartrate (Ambien) 5 mg QHS PRN PO SLEEP Last administered on 09/24/16 23:40; Admin Dose 5 MG; Start 09/23/16 at 18:00 Enoxaparin Sodium (Lovenox) 40 mg DAILY SC Last administered on 09/26/16 09:29 ; Admin Dose 40 MG; Start 09/24/16 at 09:00 Acetaminophen (Tylenol Tab) 650 mg Q4H PRN PO MILD PAIN LEVEL 1-3; Start at 18:00 Acetaminophen (Tylenol Tab) 1,000 mg Q4H PRN PO PAIN LEVEL 4-6/10; Start at 18:00 Amiodarone HCl (Cordarone) 200 mg DAILY PO Last administered on 09/26/16 09:07 ; Admin Dose 200 MG; Start 09/24/16 at 09:00 Ascorbic Acid (Vitamin C) 500 mg DAILY PO Last administered on 09/26/16 09:05; Admin Dose 500 MG; Start 09/24/16 at 09:00 Aspirin (Aspirin) 81 mg DAILY PO Last administered on 09/26/16 09:05; Admin Dose 81 MG; Start 09/24/16 at 09:00 Atorvastatin Calcium (Lipitor) 5 mg QHS PO Last administered on 09/25/16 20:31 ; Admin Dose 5 MG; Start 09/23/16 at 21:00 Bisacodyl (Dulcolax Supp) 10 mg DAILY PRN [place] CONSTIPATION; Start 09/23/16 at 18: 00 Diphenhydramine/ Zinc Oxide (Benadryl 1% Cr) 1 applic DAILY TOP ; Start 09/24/16 at 09:00 Divalproex Sodium (Depakote Er) 1,000 mg QHS PO Last administered on 09/25/16 20:32; Admin Dose 1,000 MG; Start 09/23/16 at 21:00 Docusate Sodium (Colace) 200 mg QHS PRN PO CONSTIPATION; Start 09/23/16 at 18:00 Gabapentin (Neurontin) 200 mg TID PO Last administered on 09/26/16 13:12; Admin Dose 200 MG; Start 09/23/16 at 21:00 Acetaminophen/ Hydrocodone Bitart ([place] (10/325)) 1 tab Q8H PRN PO PAIN LEVEL 7-9/10 Last administered on 09/26/16 09:06; Admin Dose 1 TAB; Start 09/23/16 at 18:00 Loratadine (Claritin) 10 mg DAILY PO Last administered on 09/26/16 09:05; Admin Dose 10 MG; Start 09/24/16 at 09:00 Al Hydrox/Mg Hydrox/Simethicone (Mag-Al Plus) 30 ml Q6H PO Last administered on 09/26/16 13:12; Admin Dose 30 ML; Start 09/23/16 at 18:00 Magnesium Hydroxide (Milk Of Mag) 30 ml DAILY PRN PO CONSTIPATION; Start at 18:00 Metoprolol Tartrate (Lopressor) 25 mg BID PO Last administered on 09/26/16 09: 13; Admin Dose 25 MG; Start 09/23/16 at 21:00 Montelukast Sodium (Singulair) 10 mg QHS PO Last administered on 09/25/16 20:34 ; Admin Dose 10 MG; Start 09/23/16 at 21:00 Multivitamins Therapeutic (Theragran) 1 tab DAILY PO Last administered on 09:12; Admin Dose 1 TAB; Start 09/24/16 at 09:00 Sodium Biphosphate/ Sodium Phosphate (Fleet Enema) 118 ml prn PRN [place] CONSTIPATION; Start 09/23/16 at 18:00 Pantoprazole 40 mg 40 mg BID PO Last administered on 09/26/16 09:13; Admin Dose 40 MG; Start 09/23/16 at 21:00 Cefepime HCl 50 ml @ 100 mls/hr Q12 IVPB Last administered on 09/26/16 09:09; Admin Dose 100 MLS/HR; Start 09/23/16 at 21:00 Azithromycin (Zithromax 500mg/ NS (Pmx)) 250 ml @ 250 mls/hr Q24H IVPB Last administered on 09/25/16 17:31; Admin Dose 250 MLS/HR; Start 09/23/16 at 18:00 Methylprednisolone Sodium Succinate (Solu-Medrol) 40 mg BID IV ; Start 09/26/16 at 21:00 Assessment/Plan Additional Assessment/Plan IMPRESSION: 1. Acute on chronic exacerbation of chronic obstructive pulmonary disease. 2. Chronic hypercapnia. 3. Possible underlying obstructive sleep apnea. RECS: 1. Taper CS 40 40 IV BID 2. Titrate FiO2 to SpO2 88-92 EVONNE PICKERING MD Sep 26, 2016 15:45
[2016-09-26] MEDS: AZITHROMYCIN 500MG/NS (PMX) 250 ML IVPB SCH (17:26)
--- NOTE | 2016-09-26 17:41 | CONS ---
Date/Time of Note Date/Time of Note DATE: 09/26/16 TIME: 17:38 Assessment/Plan Assessment/Plan Chief Complaint/Hosp Course ID PROGRESS NOTE CURRENT ABX=> Cefepime + Azith 24H INTERVAL SUMMARY * A/A/O, overweight -- Sitting up side of bed with O2 via NC eating dinner (+) Bronchial cough persisting -- patient eager to go home * Appears anxious -- still eager to go home -- rapid pressured speech -- tells me he has several problems which brought him back here from [place] [facility] -- one was "Nicotine patches too strong and made him jittery " The other is his perceived problem with Depakote " which makes me fat -- I told Dr. Whitehead that I'm not taking that stuff anymore and if he gives it to me to take I will throw it in the trash because I will not take it -- look how fat I am " with this he pulls up his gown to show me EVERYTHING. I suspect the steroids playing a role in his weight gain -- patient is not much of a listener, prefers to talk. I told him not to worry about his discharge plans -- when he is ready to DC he can DC on Levaquin PO ABX. ---- apparently still weaning steroids and oxygen * O2 via NC, no wheezing, (+)bronchial cough * No fevers, WBC rising on IV steroids PHYSICAL EXAMINATION: GENERAL: VSS, NAD, Afebrile HEENT: Unremarkable NECK: Supple, trachea midline. CHEST: Rise symmetrical, without dyspnea on observation HEART: Pulse RRR ABDOMEN: Soft EXTREMITIES: Warm ID ASSESSMENT 56 yo M PMHx Bipolar disorder admit with: 1. Pneumonia=> CXR interstitial disease * Respiratory cx (-) = normal unique 2. Chronic obstructive pulmonary disease exacerbation. 3. Tobaccoism 4. History of atrial fibrillation (-)MRSA Nares INVASIVES: PIV ABX ALLERGY: Vanco IV CURRENT ABX: TOTAL ABX DAY #4 => Cefepime + Azith ID RECOMMENDATIONS 1. Continue current ABX 2. When cleared by primary patient may DC home on Levaquin 500mg po daily x 4 days Problems: Consultation Date/Type/Reason Admit Date/Time Sep 23, 2016 at 13:31 Type of Consultation: ID Exam/Review of Systems Vital Signs Vitals Vital Signs Date Time Temp Pulse Resp B/P Pulse Ox O2 Delivery O2 Flow Rate FiO2 09/26/16 15:19 5.0 09/26/16 13:48 98 20 93 Nasal Cannula 09/26/16 07:33 97.9 137/80 09/26/16 03:35 30 Intake and Output 09/25/16 09/25/16 09/26/16 15:00 23:00 07:00 Intake Total 1860 ml 1490 ml Output Total 950 ml 1275 ml Balance 910 ml 215 ml Results Result Diagram: 09/25/16 0526 09/25/16 0526 Medications Medications Current Medications Ondansetron HCl (Zofran Inj) 4 mg Q6H PRN IV NAUSEA AND/OR VOMITING; Start 09/23 at 18:00 Acetaminophen (Tylenol Tab) 650 mg Q6H PRN PO PAIN LEVEL 1-3 OR FEVER Last administered on 09/25/16 02:45; Admin Dose 650 MG; Start 09/23/16 at 18:00 Zolpidem Tartrate (Ambien) 5 mg QHS PRN PO SLEEP Last administered on 09/24/16 23:40; Admin Dose 5 MG; Start 09/23/16 at 18:00 Enoxaparin Sodium (Lovenox) 40 mg DAILY SC Last administered on 09/26/16 09:29 ; Admin Dose 40 MG; Start 09/24/16 at 09:00 Acetaminophen (Tylenol Tab) 650 mg Q4H PRN PO MILD PAIN LEVEL 1-3; Start at 18:00 Acetaminophen (Tylenol Tab) 1,000 mg Q4H PRN PO PAIN LEVEL 4-6/10; Start at 18:00 Amiodarone HCl (Cordarone) 200 mg DAILY PO Last administered on 09/26/16 09:07 ; Admin Dose 200 MG; Start 09/24/16 at 09:00 Ascorbic Acid (Vitamin C) 500 mg DAILY PO Last administered on 09/26/16 09:05; Admin Dose 500 MG; Start 09/24/16 at 09:00 Aspirin (Aspirin) 81 mg DAILY PO Last administered on 09/26/16 09:05; Admin Dose 81 MG; Start 09/24/16 at 09:00 Atorvastatin Calcium (Lipitor) 5 mg QHS PO Last administered on 09/25/16 20:31 ; Admin Dose 5 MG; Start 09/23/16 at 21:00 Bisacodyl (Dulcolax Supp) 10 mg DAILY PRN [place] CONSTIPATION; Start 09/23/16 at 18: 00 Diphenhydramine/ Zinc Oxide (Benadryl 1% Cr) 1 applic DAILY TOP ; Start 09/24/16 at 09:00 Divalproex Sodium (Depakote Er) 1,000 mg QHS PO Last administered on 09/25/16 20:32; Admin Dose 1,000 MG; Start 09/23/16 at 21:00 Docusate Sodium (Colace) 200 mg QHS PRN PO CONSTIPATION; Start 09/23/16 at 18:00 Gabapentin (Neurontin) 200 mg TID PO Last administered on 09/26/16 13:12; Admin Dose 200 MG; Start 09/23/16 at 21:00 Acetaminophen/ Hydrocodone Bitart ([place] (10/325)) 1 tab Q8H PRN PO PAIN LEVEL 7-9/10 Last administered on 09/26/16 09:06; Admin Dose 1 TAB; Start 09/23/16 at 18:00 Loratadine (Claritin) 10 mg DAILY PO Last administered on 09/26/16 09:05; Admin Dose 10 MG; Start 09/24/16 at 09:00 Al Hydrox/Mg Hydrox/Simethicone (Mag-Al Plus) 30 ml Q6H PO Last administered on 09/26/16 17:35; Admin Dose 30 ML; Start 09/23/16 at 18:00 Magnesium Hydroxide (Milk Of Mag) 30 ml DAILY PRN PO CONSTIPATION; Start at 18:00 Metoprolol Tartrate (Lopressor) 25 mg BID PO Last administered on 09/26/16 09: 13; Admin Dose 25 MG; Start 09/23/16 at 21:00 Montelukast Sodium (Singulair) 10 mg QHS PO Last administered on 09/25/16 20:34 ; Admin Dose 10 MG; Start 09/23/16 at 21:00 Multivitamins Therapeutic (Theragran) 1 tab DAILY PO Last administered on 09:12; Admin Dose 1 TAB; Start 09/24/16 at 09:00 Sodium Biphosphate/ Sodium Phosphate (Fleet Enema) 118 ml prn PRN [place] CONSTIPATION; Start 09/23/16 at 18:00 Pantoprazole 40 mg 40 mg BID PO Last administered on 09/26/16 09:13; Admin Dose 40 MG; Start 09/23/16 at 21:00 Cefepime HCl 50 ml @ 100 mls/hr Q12 IVPB Last administered on 09/26/16 09:09; Admin Dose 100 MLS/HR; Start 09/23/16 at 21:00 Azithromycin (Zithromax 500mg/ NS (Pmx)) 250 ml @ 250 mls/hr Q24H IVPB Last administered on 09/26/16 17:26; Admin Dose 250 MLS/HR; Start 09/23/16 at 18:00 Methylprednisolone Sodium Succinate (Solu-Medrol) 40 mg BID IV ; Start 09/26/16 at 21:00 RAUL GOMEZ NP Sep 26, 2016 17:41
[2016-09-26 19:23] VITALS: PULSE 85
[2016-09-26 20:00] VITALS: BP 133/75; RESP 22
[2016-09-26] MEDS: METHYLPREDNISOLONE 40 MG INJ IV SCH (20:40)
[2016-09-26] MEDS: ATORVASTATIN 10 MG TAB PO SCH (20:46)
[2016-09-26] MEDS: MONTELUKAST 10 MG TAB PO SCH (20:46)
[2016-09-26] MEDS: ZOLPIDEM 5 MG TAB PO PRN (20:48)
[2016-09-26] MEDS: DIVALPROEX (ER) 500 MG TAB PO SCH (20:49)
[2016-09-27 00:41] VITALS: PULSE 90
[2016-09-27] MEDS: HYDROCODONE/APAP (10/325) TAB PO PRN ×2 (00:54→16:40)
[2016-09-27] MEDS: AL HYDROX/MG HYDROX/SIMETH 30 ML CUP PO SCH ×5 (00:54→18:00)
[2016-09-27] MEDS: ALBUTEROL 0.083% (NEB) 2.5 MG/3 ML AMP HHN SCH ×5 (03:03→21:06)
[2016-09-27 08:27] VITALS: BP 172/89; RESP 22
[2016-09-27] MEDS: PANTOPRAZOLE (EC) 40 MG TAB PO SCH ×2 (09:29→20:40)
[2016-09-27] MEDS: MULTIVITAMINS THERAPEUTIC TAB PO SCH (09:29)
[2016-09-27] MEDS: ASCORBIC ACID 500 MG TAB PO SCH (09:29)
[2016-09-27] MEDS: AMIODARONE 200 MG TAB PO SCH (09:31)
[2016-09-27] MEDS: GABAPENTIN 100 MG CAP PO SCH ×3 (09:32→20:39)
[2016-09-27] MEDS: LORATADINE 10 MG TAB PO SCH (09:32)
[2016-09-27] MEDS: METOPROLOL 25 MG TAB PO SCH ×2 (09:33→20:41)
[2016-09-27] MEDS: ASPIRIN 81 MG TAB PO SCH (09:33)
[2016-09-27] MEDS: ENOXAPARIN 40 MG/0.4 ML SYG SC SCH (09:43)
[2016-09-27] MEDS: DIPHENHYDRAMINE 1%/ZINC 28.3 GM CR TOP SCH (09:48)
[2016-09-27] MEDS: CEFEPIME 1GM/50 ML (PMX) 50 ML IVPB SCH ×2 (10:44→20:53)
[2016-09-27] MEDS: METHYLPREDNISOLONE 40 MG INJ IV SCH (10:44)
--- NOTE | 2016-09-27 12:07 | PN ---
DATE: 09/27/2016 SUBJECTIVE: The patient is stable, no acute events overnight. No Hemoptysis, hematemesis or hemato chezia. Please note, the patient did desaturate overnight without oxygen. Currently stable on 3 li ters nasal cannula. OBJECTIVE: VITAL SIGNS: Blood pressure is 172/80, respirations 22, temperature 96, the patient is saturating 9 3% on 6 liters nasal cannula. HEENT: Head is normocephalic. Pupils are reactive to light. NECK: Supple. HEART: Regular rate. LUNGS: Show diminished breath sounds at the base. ABDOMEN: Soft, nontender to palpation. No rebound or guarding. EXTREMITIES: Negative for clubbing, cyanosis. No edema. DERMATOLOGIC: No rashes. MUSCULOSKELETAL: No joint effusions. NEUROLOGIC: No change in exam. LABORATORY DATA: Has been reviewed. ASSESSMENT AND PLAN: 1. Acute hypoxemic hypercapnic respiratory failure. Etiology secondary to chronic obstructive pulm onary disease exacerbation. The patient is currently on nightly CPAP, oxygen in the a.m. We will co ntinue current medical management. Continue nebulizers, steroids, antibiotics. Follow up with Pulm onary. 2. Healthcare-associated pneumonia. Continue current antibiotic regimen. 3. Arrhythmia, currently in sinus rhythm. Continue to monitor. 4. Coronary artery disease. Continue medical management. 5. Anemia. Continue to monitor hemoglobin and hematocrit levels. 6. History of diastolic heart failure, clinically improved. Continue medical management. 7. Obesity. The patient will undergo dietary modification. Will taper off valproic acid as the pa alan is stating this is causing his weight gain. 8. History of mood disorder. The patient no longer wishes to take valproic acid. Will taper off. 9. Hypertension, etiology could be secondary to medication, steroids. Continue to monitor. Contin ue blood pressure medications, adjust as needed. 10. Gastrointestinal and deep venous thrombosis prophylaxis. Continue proton pump inhibitor and se quential leg squeezers. 11. Debility. Continue PT, OT. 12. Mild hyperkalemia. Will repeat a renal panel. Continue to monitor. Dictated By: RAMY DOMINGUEZ DO NR/NTS Conf#: [id number] DID#: [id number]
--- NOTE | 2016-09-27 14:06 | CONS ---
Date/Time of Note Date/Time of Note DATE: 09/27/16 TIME: 14:04 Assessment/Plan Assessment/Plan Additional Assessment/Plan Assessment recommendations; 1. Patient admitted for hypercapnic respiratory failure likely from underlying sleep apnea. With significant clinical improvement. 2. History of cardiac arrhythmia, seizure disorder, hypertension and neuropathy. Discontinue steroids. Patient can be discharged home. He does have a CPAP machine at home. Consultation Date/Type/Reason Admit Date/Time Sep 23, 2016 at 13:31 Initial Consult Date Type of Consultation: Pulmonary 24 HR Interval Summary Free Text/Dictation Condition is markedly improved. He denies any shortness of breath, chest pain, wheezing, cough or sputum production. Wants to go home. General exam; middle-aged man, appears overweight currently in no distress awake and alert. Exam/Review of Systems Vital Signs Vitals Vital Signs Date Time Temp Pulse Resp B/P Pulse Ox O2 Delivery O2 Flow Rate FiO2 09/27/16 13:27 89 26 92 Nasal Cannula 6.0 09/27/16 08:27 98.5 172/89 09/27/16 00:41 30 Intake and Output 09/26/16 09/26/16 09/27/16 15:00 23:00 07:00 Intake Total 1840 ml 770 ml Output Total 1000 ml 250 ml Balance 840 ml 520 ml Exam HEENT examination; supple neck, JVD difficult to see because of short neck, pupils are midsize reactive to light bilaterally. No neck masses. Pharynx is clear. Patient a few missing teeth. Chest examined; diminished but clear breath sounds. No added sound. S1-S2 audible, no murmurs. Regular rhythm. Abdomen examination; soft, protuberant. Nontender. Bowel sounds audible. Extremity exam is; trace peripheral edema. Pulses 1+ bilaterally. No clubbing. CRUTCH MAKER examination; no focal deficit. Results Result Diagram: 09/25/1652509/25/16525 Medications Medications Current Medications Ondansetron HCl (Zofran Inj) 4 mg Q6H PRN IV NAUSEA AND/OR VOMITING; Start 09/23 at 18:00 Acetaminophen (Tylenol Tab) 650 mg Q6H PRN PO PAIN LEVEL 1-3 OR FEVER Last administered on 09/25/16t 02:45; Admin Dose 650 MG; Start 09/23/16 at 18:00 Zolpidem Tartrate (Ambien) 5 mg QHS PRN PO SLEEP Last administered on 09/26/16 20:48; Admin Dose 5 MG; Start 09/23/16 at 18:00 Enoxaparin Sodium (Lovenox) 40 mg DAILY SC Last administered on 09/27/16 09:43 ; Admin Dose 40 MG; Start 09/24/16 at 09:00 Acetaminophen (Tylenol Tab) 650 mg Q4H PRN PO MILD PAIN LEVEL 1-3; Start at 18:00 Acetaminophen (Tylenol Tab) 1,000 mg Q4H PRN PO PAIN LEVEL 4-6/10; Start at 18:00 Amiodarone HCl (Cordarone) 200 mg DAILY PO Last administered on 09/27/16 09:31 ; Admin Dose 200 MG; Start 09/24/16 at 09:00 Ascorbic Acid (Vitamin C) 500 mg DAILY PO Last administered on 09/27/16 09:29 ; Admin Dose 500 MG; Start 09/24/16 at 09:00 Aspirin (Aspirin) 81 mg DAILY PO Last administered on 09/27/16 09:33; Admin Dose 81 MG; Start 09/24/16 at 09:00 Atorvastatin Calcium (Lipitor) 5 mg QHS PO Last administered on 09/26/16 20:46 ; Admin Dose 5 MG; Start 09/23/16 at 21:00 Bisacodyl (Dulcolax Supp) 10 mg DAILY PRN [place] CONSTIPATION; Start 09/23/16 at 18: 00 Diphenhydramine/ Zinc Oxide (Benadryl 1% Cr) 1 applic DAILY TOP Last administered on 09/27/16 09:48; Admin Dose 1 APPLIC; Start 09/24/16 at 09:00 Docusate Sodium (Colace) 200 mg QHS PRN PO CONSTIPATION; Start 09/23/16 at 18:00 Gabapentin (Neurontin) 200 mg TID PO Last administered on 09/27/16 12:30; Admin Dose 200 MG; Start 09/23/16 at 21:00 Acetaminophen/ Hydrocodone Bitart ([place] (10/325)) 1 tab Q8H PRN PO PAIN LEVEL 7-9/10 Last administered on 09/27/16 00:54; Admin Dose 1 TAB; Start 09/23/16 at 18:00 Loratadine (Claritin) 10 mg DAILY PO Last administered on 09/27/16 09:32; Admin Dose 10 MG; Start 09/24/16 at 09:00 Al Hydrox/Mg Hydrox/Simethicone (Mag-Al Plus) 30 ml Q6H PO Last administered on 09/27/16 06:31; Admin Dose 30 ML; Start 09/23/16 at 18:00 Magnesium Hydroxide (Milk Of Mag) 30 ml DAILY PRN PO CONSTIPATION; Start at 18:00 Metoprolol Tartrate (Lopressor) 25 mg BID PO Last administered on 09/27/16 09: 33; Admin Dose 25 MG; Start 09/23/16 at 21:00 Montelukast Sodium (Singulair) 10 mg QHS PO Last administered on 09/26/16 20:46 ; Admin Dose 10 MG; Start 09/23/16 at 21:00 Multivitamins Therapeutic (Theragran) 1 tab DAILY PO Last administered on 09:29; Admin Dose 1 TAB; Start 09/24/16 at 09:00 Sodium Biphosphate/ Sodium Phosphate (Fleet Enema) 118 ml prn PRN [place] CONSTIPATION; Start 09/23/16 at 18:00 Pantoprazole 40 mg 40 mg BID PO Last administered on 09/27/16 09:29; Admin Dose 40 MG; Start 09/23/16 at 21:00 Cefepime HCl 50 ml @ 100 mls/hr Q12 IVPB Last administered on 09/27/16 10:44 ; Admin Dose 100 MLS/HR; Start 09/23/16 at 21:00 Azithromycin (Zithromax 500mg/ NS (Pmx)) 250 ml @ 250 mls/hr Q24H IVPB Last administered on 09/26/16 17:26; Admin Dose 250 MLS/HR; Start 09/23/16 at 18:00 Methylprednisolone Sodium Succinate (Solu-Medrol) 40 mg BID IV Last administered on 09/27/16 10:44; Admin Dose 40 MG; Start 09/26/16 at 21:00 Divalproex Sodium (Depakote Er) 500 mg QHS PO ; Start 09/27/16 at 21:00 SHARON LLAMAS Sep 27, 2016 14:05
--- NOTE | 2016-09-27 16:26 | PN ---
DATE: 09/27/2016 SUBJECTIVE: No acute changes. No fevers. The patient is sleeping, comfortable on nasal cannula. ANTIMICROBIALS: Cefepime, day #5 and Zithromax. PHYSICAL EXAMINATION: GENERAL: This is an obese, well-developed, middle-aged white man who is in no distress. HEENT: Head atraumatic, normocephalic. Sclerae anicteric. Buccal mucosa dry. NECK: Supple, trachea midline. CHEST: Rise symmetrical. Breath sounds diminished to bases. HEART: S1, S2. ABDOMEN: Soft. Bowel tones present. EXTREMITIES: Without cyanosis. ASSESSMENT: 1. Pneumonia. 2. Chronic obstructive pulmonary disease exacerbation. 3. Acute on chronic hypoxemic respiratory failure. 4. History of atrial fibrillation and seizure disorder. PLAN: The patient remains stable, pulmonary team follows, anticipate discharge on oral Levaquin once he is medically cleared. Dictated By: NANCY MOREL PRISON GUARD SUPERVISOR for [employer]/ALYSON Conf#: [id number] DID#: [id number] MAGUI
[2016-09-27 20:00] VITALS: BP 143/83; RESP 22
[2016-09-27] MEDS: ATORVASTATIN 10 MG TAB PO SCH (20:39)
[2016-09-27] MEDS: AZITHROMYCIN 500MG/NS (PMX) 250 ML IVPB SCH ×2 (20:39→20:52)
[2016-09-27 20:40] VITALS: BP 127/75; PULSE 85; RESP 22
[2016-09-27] MEDS: MONTELUKAST 10 MG TAB PO SCH (20:40)
[2016-09-27] MEDS ORDERED: DIVALPROEX (ER) 500 MG TAB PO SCH (21:00)
[2016-09-28] MEDS: CEFEPIME 1GM/50 ML (PMX) 50 ML IVPB SCH ×2 (00:54→09:22)
[2016-09-28] MEDS: AL HYDROX/MG HYDROX/SIMETH 30 ML CUP PO SCH ×3 (01:03→12:00)
[2016-09-28 06:17] LABS: ADD SCAN DIFF NO
[2016-09-28 06:24] LABS: ABNORMAL IP MESSAGE 1; HEMATOCRIT 38.8 % (42.0-52.0); HEMOGLOBIN 11.8 g/dl (14.0-18.0); MEAN CORPUSCULAR HEMOGLOBIN 31.3 pg (29.0-33.0); MEAN CORPUSCULAR HGB CONC 30.4 g/dl (32.0-37.0); MEAN CORPUSCULAR VOLUME 102.9 fl (82.0-101.0); MEAN PLATELET VOLUME 9.1 fl (7.4-10.4); PLATELET COUNT 306 10^3/UL (140-415); RED BLOOD COUNT 3.77 10^6/ul (4.70-6.10); RED CELL DISTRIBUTION WIDTH 13.2 % (11.5-14.5); WHITE BLOOD COUNT 18.9 10^3/ul (4.8-10.8)
[2016-09-28 06:37] LABS: POTASSIUM 3.9 mmol/L (3.5-5.1)
[2016-09-28 06:40] LABS: CREATININE 0.74 mg/dl (0.61-1.24)
[2016-09-28 06:41] LABS: CALCIUM 8.6 mg/dl (8.4-10.2); MAGNESIUM 2.8 mg/dl (1.7-2.5); PHOSPHORUS 3.4 mg/dl (2.5-4.9)
[2016-09-28 07:23] VITALS: BP 134/79; RESP 20
[2016-09-28] MEDS: METOPROLOL 25 MG TAB PO SCH (09:24)
[2016-09-28] MEDS: MULTIVITAMINS THERAPEUTIC TAB PO SCH (09:24)
[2016-09-28] MEDS: AMIODARONE 200 MG TAB PO SCH (09:24)
[2016-09-28] MEDS: ASPIRIN 81 MG TAB PO SCH (09:24)
[2016-09-28] MEDS: LORATADINE 10 MG TAB PO SCH (09:24)
[2016-09-28] MEDS: ASCORBIC ACID 500 MG TAB PO SCH (09:24)
[2016-09-28] MEDS: PANTOPRAZOLE (EC) 40 MG TAB PO SCH (09:24)
[2016-09-28] MEDS: GABAPENTIN 100 MG CAP PO SCH (09:24)
[2016-09-28] MEDS: ENOXAPARIN 40 MG/0.4 ML SYG SC SCH (09:25)
[2016-09-28] MEDS: DIPHENHYDRAMINE 1%/ZINC 28.3 GM CR TOP SCH (09:26)
[2016-09-28] MEDS: ALBUTEROL 0.083% (NEB) 2.5 MG/3 ML AMP HHN SCH (09:41)
[2016-09-28 09:48] LABS: MONOCYTE # 1.9 10^3/ul (0.3-0.9); MYELOCYTES # 0.4; NEUTROPHIL # 12.9 10^3/ul (1.6-7.5)
--- NOTE | 2016-09-28 10:20 | DS ---
DATE OF ADMISSION: 09/23/2016 DATE OF DISCHARGE: 09/28/2016 HOSPITAL COURSE: This is a 56-year-old male with a past medical history of COPD, history of a bipol ar disorder, history of psychosis, history of coronary artery disease, history of medical noncomplia nce, who presented to [facility] due to hypoxic hypercapnic respiratory failure. The patient upon arrival had a chest x-ray which showed findings of patchy pneumonia in the right up per lung lobes. The patient was subsequently admitted to med/surg for evaluation. In terms of the patient's pneumonia, was seen by infectious disease, Dr. Brown as well as ribbon hanking machine operator, ____. The patient was placed on IV antibiotics with good clinical response. Patient has completed 6 days of IV antibiotics, will complete another 7 to 8 days in an outpatient setting, to complete a 14-day course. The patient also was noted to have hypercapnic respiratory failure, per ribbon hanking machine operator recom mended the patient to be compliant with BiPAP as he is a chronic retainer. The patient has been on BiPAP intermittently during the hospital course due to medical noncompliance. The patient has clini raphael improved. The patient's other problems including coronary artery disease, anemia, diastolic h eart failure, obesity have been stable during the hospital course. Currently, at this time, the pat ient has been cleared by both Infectious Disease and Pulmonary for him to be discharged back [facility]. FINAL DIAGNOSES: 1. Acute hypoxemic hypercapnic respiratory failure secondary to chronic obstructive pulmonary disea se exacerbation and monitor. The patient clinically improving. The patient is status post steroids . Will continue antibiotics in the alf. 2. Healthcare-associated pneumonia. Continue current antibiotic regimen. 3. Arrhythmia, currently in sinus rhythm. 4. Coronary artery disease. 5. Anemia. 6. History of diastolic heart failure, currently compensated. 7. Obesity. 8. Mood disorder. The patient is on valproic acid. Will be tapered off slowly in outpatient settin g. 9. Hypertension. 10. Debility. 11. Mild hyperkalemia, resolved. 12. Leukocytosis, etiology secondary to steroids. We will continue to monitor. FINAL MEDICATIONS: See reconciliation list. Please note at time of discharge the patient is stable, in no acute distress. Please note, I spent over 30 minutes of time preparing the patient's discharge. Dictated By: RAMY PERRY/ALYSON Conf#: [id number] DID#: [id number]
--- NOTE | 2016-09-28 13:39 | PN ---
DATE: 09/28/2016 SUBJECTIVE: Patient is alert, on nasal cannula, tachypneic, but in no distress. VITAL SIGNS: Stable, no fevers. WBC 18.9, no shift, no bands. BUN 31, creatinine 0.74. ANTIMICROBIALS: Patient is on: 1. Cefepime day #6. 2. Zithromax. PHYSICAL EXAMINATION: GENERAL: This is an obese, well-developed, middle-aged white man who is awake, in no distress. HEENT: Head atraumatic, normocephalic. Sclerae anicteric. Buccal mucosa pink. NECK: Supple. CHEST: Rise symmetrical. Breath sounds diminished throughout. HEART: S1, S2. ABDOMEN: Soft. Bowel tones present. EXTREMITIES: Without cyanosis. ASSESSMENT: 1. Acute on chronic respiratory failure. 2. Community-acquired pneumonia. 3. Chronic obstructive pulmonary disease exacerbation. 4. History of atrial fibrillation. 5. History of seizure disorder. PLAN: The patient remains unchanged, still with significant SOB on exertion, pulmonary follows. We are going switch him to oral Levaquin. Dictated By: NANCY MOREL PODIATRIC MEDICINE PROFESSOR for ARVIN VERDUZCO/ALYSON Conf#: [id number] DID#: [id number] MTDD
== END 2016-09-28 12:50 | DRG 190 ==
LOC: E/R 12:49 → MS2 13:31
PROVIDERS: ADMIT Internal Medicine; ATTEND Internal Medicine
PROC: 5A09357 Assistance with Respiratory Ventilation, Less than 24 Consecutive Hours, Continuous Positive Airway Pressure (ICD-10-PCS; principal; 2016-09-25)
DX: J44.0 Chronic obstructive pulmonary disease with (acute) lower respiratory infection (principal); J18.9 Pneumonia, unspecified organism; J96.01 Acute respiratory failure with hypoxia; J96.02 Acute respiratory failure with hypercapnia; I11.0 Hypertensive heart disease with heart failure; I50.30 Unspecified diastolic (congestive) heart failure; J44.1 Chronic obstructive pulmonary disease with (acute) exacerbation; Z72.0 Tobacco use; D63.8 Anemia in other chronic diseases classified elsewhere; Y95 Nosocomial condition; Z88.1 Allergy status to other antibiotic agents; J45.909 Unspecified asthma, uncomplicated; I25.10 Atherosclerotic heart disease of native coronary artery without angina pectoris; F31.9 Bipolar disorder, unspecified; Z87.891 Personal history of nicotine dependence; I48.91 Unspecified atrial fibrillation; Z91.19 Patient's noncompliance with other medical treatment and regimen; E66.9 Obesity, unspecified; Z68.26 Body mass index [BMI] 26.0-26.9, adult; E87.5 Hyperkalemia; D72.829 Elevated white blood cell count, unspecified; G40.909 Epilepsy, unspecified, not intractable, without status epilepticus
CPT/HCPCS: 36600; 71010; 71020; 80048; 80053; 82803; 83735; 84100; 84484; 85025; 87070; 87081; 93005; 94640; 94660; 94664; 96374; 96375; J0456; J0692; J1650; J2920; J2930

== ENCOUNTER 2016-09-29 08:00 | Inpatient (IN) | payer MEDICARE, OTHER ==
[~2016-09-29] VITALS: Ht 175.3 cm; Wt 120.0 kg
[~2016-09-29 08:00] MED LIST changes: +ACET325T33 PO; -ADV25050 INH; -ALBU2.5V36 NEB; +ALBU90AE INHALATION; -CLOP75TA27 PO; -CRAN3875 PO; +DEXT1DRO7 OP; +DIPH28.32 TOP; +GABA100C14 PO; -HYDR-3498 PO; +HYDR-902 PO; +LORA10TA3 PO; +MAG355OR14 PO; +MONT10TA21 PO; -OLAN5TAB5 PO; +OMEG500C3 PO; -TIOT18CA IH
[2016-09-29] MEDS ORDERED: IPRATROPIUM (NEB) 0.5 MG/2.5 ML AMP INH STA (08:05)
[2016-09-29] MEDS ORDERED: ALBUTEROL 0.5% (NEB) 2.5 MG/0.5 ML AMP INH STA ×2 (08:05→19:33)
[2016-09-29] MEDS ORDERED: METHYLPREDNISOLONE 125 MG INJ IV STA (08:05)
[2016-09-29 08:18] LABS: ADD SCAN DIFF NO
[2016-09-29 08:20] LABS: ABNORMAL IP MESSAGE 1; BASOPHIL # 0.1 10^3/ul (0.0-0.1); BASOPHILS % 0.3 % (0.0-2.0); EOSINOPHILS # 0.1 10^3/ul (0.0-0.5); EOSINOPHILS % 0.2 % (0.0-7.0); HEMATOCRIT 42.3 % (42.0-52.0); HEMOGLOBIN 12.6 g/dl (14.0-18.0); LYMPHOCYTES # 1.2 10^3/ul (0.8-2.9); LYMPHOCYTES % 4.7 % (15.0-51.0); MEAN CORPUSCULAR HEMOGLOBIN 31.5 pg (29.0-33.0); MEAN CORPUSCULAR HGB CONC 29.8 g/dl (32.0-37.0); MEAN CORPUSCULAR VOLUME 105.8 fl (82.0-101.0); MEAN PLATELET VOLUME 8.5 fl (7.4-10.4); MONOCYTE # 1.7 10^3/ul (0.3-0.9); MONOCYTES % 6.6 % (0.0-11.0); NEUTROPHIL # 21.4 10^3/ul (1.6-7.5); NEUTROPHILS % 84.9 % (39.0-77.0); NUCLEATED RED BLOOD CELLS% 0.2 /100WBC (0.0-0.0); PLATELET COUNT 255 10^3/UL (140-415); RED CELL DISTRIBUTION WIDTH 13.3 % (11.5-14.5); WHITE BLOOD COUNT 25.2 10^3/ul (4.8-10.8)
[2016-09-29] MEDS ORDERED: PIPER-TAZO 3.375 GM IV (PMX) 100 ML IVPB STA (08:24)
[2016-09-29] MEDS ORDERED: LEVOFLOXACIN 750MG/D5W (PMX) 150 ML IVPB STA (08:24)
[2016-09-29 08:30] LABS: ALBUMIN 4.3 g/dl (3.3-4.9)
[2016-09-29 08:31] LABS: POTASSIUM 4.2 mmol/L (3.5-5.1)
[2016-09-29 08:33] LABS: ALBUMIN/GLOBULIN RATIO 1.04; BILIRUBIN,INDIRECT 0.3 mg/dl (0-1.1); BILIRUBIN,TOTAL 0.3 mg/dl (0.2-1.3); CREATININE 0.73 mg/dl (0.61-1.24); TOTAL PROTEIN 8.4 g/dl (6.1-8.1)
[2016-09-29 08:34] LABS: CALCIUM 8.8 mg/dl (8.4-10.2)
[2016-09-29 08:36] LABS: INR 0.92; PARTIAL THROMBOPLASTIN TIME 24.3 Sec (25.0-35.0); PROTIME 12.4 Sec (12.2-14.2)
--- NOTE | 2016-09-29 08:37 | ERA ---
ER Documentation Chief Complaint Date/Time DATE: 09/29/16 TIME: 08:35 Chief Complaint BIB RA 90 FOR EVAL OF SOB. HPI This is a 56-year-old male with a known history of COPD, bipolar and recent discharge from [facility] 24 hours ago after being treated with a 6 day course of antibiotics for right-sided pneumonia, who returns to the hospital today brought in by ambulance from their assisted living physical for severe difficulty breathing and hypoxia. The patient had received 6 days of antibiotics in the hospital and had been discharged with Levaquin. The patient is supposed to be on CPAP at night and persistent O2. When EMS arrived indicated the patient was cyanotic in severe respiratory distress with a pulse oxygenation of 80%. There has been no documentation of fever shaking or chills. The patient denies any chest pain or pressure that radiates to the neck arm back or jaw ROS All systems reviewed and are negative except as per history of present illness. Medications Home Meds Reported Medications Hydrocodone/Acetaminophen ([place] 10-325 Tablet) 1 Each Tablet, 1 EACH PO Q8H Y for PAIN LEVEL 7-9/10, TAB 09/23/16 Gabapentin* (Gabapentin*) 100 Mg Capsule, 200 MG PO TID, #180 CAP 09/23/16 Mag Hydrox/Al Hydrox/Simeth (Maalox Advanced Suspension) 355 Ml Oral.susp, 30 ML PO Q6H 09/23/16 Atorvastatin Calcium (Atorvastatin Calcium) 10 Mg Tablet, 5 MG PO QHS, #30 TAB 09/23/16 Douds-3 Fatty Acids (Fish Oil) 500 Mg Capsule, 1000 MG PO, CAP 09/23/16 Loratadine* (Loratadine*) 10 Mg Tablet, 10 MG PO DAILY, #30 TAB 09/23/16 Diphenhydramine-Zinc* Topical (Diphenhydramine-Zinc* Topical) 1%-28 Gm Cream..g. , 1 APPLIC TOP NEEDED, TUB 09/23/16 Dextran 70/Hypromellose/Pf (ARTIFICIAL TEARS DROPS) 1 Each Droperette, 1 EACH OP TID 09/23/16 Montelukast Sodium* (Singulair*) 10 Mg Tablet, 10 MG PO QHS, #30 TAB 09/23/16 Acetaminophen* (Tylenol*) 325 Mg Tablet, 650 MG PO Q4H Y for MILD PAIN LEVEL 1-3 , TAB 09/23/16 Albuterol Sulfate (Proair Respiclick) 90 Mcg Aer.pow.ba, 1 PUFF INHALATION Q4 Y for SHORTNESS OF BREATH, #1 BOTTLE 09/23/16 Metoprolol Tartrate* (Lopressor*) 25 Mg Tab, 25 MG PO BID for HOLD OF SBP<110, HR<60, TAB 09/02/14 Ipratropium Amlin* (Atrovent*) 0.5 Mg/2.5 Ml Neb, 0.5 MG NEB Q4H Y for WHEEZING AND SOB, EA 09/02/14 Aspirin* (Aspirin* Chew) 81 Mg Tab.chew, 81 MG PO DAILY, TAB.CHEW 09/02/14 Lactobacillus Acidophilus (Acidophilus Lactobacillus) 1 Cap Capsule, 1 CAP PO BID 09/02/14 Ascorbic Acid (Vitamin C) 500 Mg Tab, 500 MG PO DAILY, TAB 05/28/14 Acetaminophen* (Tylenol*) 500 Mg Tab, 1000 MG PO Q4H Y for PAIN LEVEL -11/27, TAB 05/28/14 Pantoprazole* (Protonix*) 40 Mg Tablet.dr, 40 MG PO BID, TAB 05/28/14 Multivitamins* (Once Daily*) 1 Tab Tablet, 1 TAB PO DAILY, TAB 05/28/14 Magnesium Hydroxide* (Milk Of Magnesia*) 400 Mg/5 Ml Oral.susp, 30 ML PO DAILY Y for CONSTIPATION, ML 05/28/14 Na Phos,M-B/Na Phos,Di-Ba* (Fleet* Enema) 118 Ml Enema, 118 ML TX prn Y for CONSTIPATION, ENEMA 05/28/14 Bisacodyl* (Dulcolax*) 10 Mg/Supp.rect Supp.rect, 10 MG TX DAILY Y for CONSTIPATION, SUPP.RECT 05/28/14 Cranberry Extract (Cranberry) 425 Mg Capsule, 425 MG PO DAILY 05/28/14 Amiodarone Hcl* (Amiodarone Hcl*) 200 Mg Tablet, 200 MG PO DAILY, TAB 05/28/14 Docusate Sodium* (Colace*) 100 Mg Capsule, 200 MG PO QHS Y for CONSTIPATION, CAP 05/28/14 Discontinued Reported Medications Nicotine* (Nicotine* Patch) 21 mg/day Patch, 1 EACH TD DAILY, PATCH 4/6/17 Divalproex Sodium* (Depakote ER*) 500 Mg Tabsr, 1000 MG PO QHS, #60 TAB.SA 09/23/16 Olanzapine* (Zyprexa*) 5 Mg Tablet, 5 MG PO QHS, TAB 09/02/14 Cran/Vitc/Mannose/Inulin/Brom (Uti-Stat Liquid) 3,875 Mg/30 Ml Liquid, 3875 MG PO DAILY 09/02/14 Clopidogrel Bisulfate (Clopidogrel) 75 Mg Tablet, 75 MG PO DAILY, TAB 09/02/14 Hydrocodone Bit-Acetaminophen* (P[place]*) 5-325 Mg Tab, 1 TAB PO Q6 Y for SEVERE PAIN LEVEL 7-10, TAB 09/02/14 Atorvastatin Calcium (Atorvastatin Calcium) 10 Mg Tab, 10 MG PO HS, TAB 09/02/14 Albuterol Sulfate* (Albuterol Sulfate* Neb) 0.5%-0.5 Ml Neb, 2.5 MG NEB Q4H Y for WHEEZING AND SOB, EA 09/02/14 Salmeterol Xinaf/Fluticasone* (Advair*) 250-50 Diskus Inhaler, 1 INH INH BID, INH 09/02/14 Tiotropium Amlin* (Spiriva*) 18 Mcg Cap.w.dev, 1 INH IH DAILY, EA 05/28/14 Allergies Allergies: Coded Allergies: vancomycin (Verified Allergy, Unknown, RASHES, 09/29/16) PMhx/Soc History of Surgery: Yes Anesthesia Reaction: No Hx Neurological Disorder: No Hx Respiratory Disorders: Yes (copd) Hx Cardiac Disorders: Yes (htn) Hx Psychiatric Problems: Yes (depression) Hx Miscellaneous Medical Probl: No Hx Alcohol Use: No Hx Substance Use: Yes (meth.speed.marihana) Hx Tobacco Use: No Smoking Status: Never smoker Physical Exam Vitals Vital Signs Date Time Temp Pulse Resp B/P Pulse Ox O2 Delivery O2 Flow Rate FiO2 09/29/16 09:52 96.9 70 20 147/55 100 BIPAP 09/29/16 08:15 100 100 100 09/29/16 08:15 100 20 09/29/16 08:05 96.4 114 22 163/85 50 Physical Exam Constitutional:Well-developed. Well-nourished. Patient in severe respiratory distress HEENT:Normocephalic. Atraumatic.Pupils were equal round reactive to light. Moist mucous membranes.No tonsillar exudates. Neck: No nuchal rigidity. No lymphadenopathy. No posterior cervical spine tenderness or step-offs. Respiratory: Tachypneic. Using accessory muscles of respiration. Unable to speak more than 1 word at a time before becoming short of breath. No breath sounds heard on auscultation bilaterally. Cardiovascular: Regular rate regular rhythm.No murmurs. No rubs were appreciated.S1, S2 normal. Distal pulses are palpable 2+ bilaterally. GI: Abdomen was soft. Nontender. Non Distended. No pulsatile abdominal masses or bruits. No rebound. No guarding. Bowel sounds were present and normal. Muscle skeletal: Decreased muscular strength in the right lower extremity 3 out of 5 in right upper extremity. Full range of motion of the left upper and lower extremity Skin: Facial cyanosis with no petechia, no purpura. No lesions on the palms or the soles of the feet. No maculopapular rash. NEURO: Patient was alert, awake, orientated x3.No facial droop. Gait not observed as patient was in severe respiratory distress Result Diagram: 09/29/1680409/29/16804 Results 24 hrs Laboratory Tests Test 09/29/16 08:03 09/29/16 08:05 Blood Gas Specimen Source Blood arterial Arterial Blood Date Drawn 09/29/2016 9:35:49 AM Arterial Blood pH (Temp corrected) 7.286 Arterial Blood pCO2 (Temp correct) 84.2mmhg Arterial Blood pO2 (Temp corrected) 153.0mmHG Arterial Blood HCO3 39.2mmol/L Arterial Blood Base Excess 9.5mmol/L Arterial Blood Oxygen Saturation 98.5mmHG Elijah Test ACCEPTAB Arterial Blood Gas Puncture Site Left Radial Arterial Blood Carboxyhemoglobin 0% Arterial Blood Methemoglobin 0.4% Blood Gas A-a O2 Differential 475.8mmHg Oxyhemoglobin Percent 98.1% Total Hemoglobin 12.4g/dl Blood Gas Temperature 37.0C Blood Gas Respiration Rate 16.0 Blood Gas Actual Respiration Rate 26 Blood Gas Modality MASK - BIPAP FiO2 100.0% Blood Gas IPAP/EPAP Ratio 15/5 Blood Gas Critical Value Read Back DR POOLE Blood Gas Notified Whom JALEN Blood Gas Notified Time 09/29/2016 9:41:46 AM White Blood Count 25.210^3/ul Red Blood Count 4.0010^6/ul Hemoglobin 12.6g/dl Hematocrit 42.3% Mean Corpuscular Volume 105.8fl Mean Corpuscular Hemoglobin 31.5pg Mean Corpuscular Hemoglobin Concent 29.8g/dl Red Cell Distribution Width 13.3% Platelet Count 26727^3/UL Mean Platelet Volume 8.5fl Neutrophils % 84.9% Lymphocytes % 4.7% Monocytes % 6.6% Eosinophils % 0.2% Basophils % 0.3% Nucleated Red Blood Cells % 0.2/100WBC Neutrophils # 21.410^3/ul Lymphocytes # 1.210^3/ul Monocytes # 1.710^3/ul Eosinophils # 0.110^3/ul Basophils # 0.110^3/ul Nucleated Red Blood Cells # 0.010^3/ul Prothrombin Time 12.4Sec Prothrombin Time Ratio 1.0 INR International Normalized Ratio 0.92 Activated Partial Thromboplast Time 24.3Sec Sodium Level 147mmol/L Potassium Level 4.2mmol/L Chloride Level 90mmol/L Carbon Dioxide Level 45mmol/L Anion Gap 16 Blood Urea Nitrogen 32mg/dl Creatinine 0.73mg/dl Glucose Level 153mg/dl Lactic Acid Level 0.7mmol/L Calcium Level 8.8mg/dl Total Bilirubin 0.3mg/dl Direct Bilirubin 0.00mg/dl Indirect Bilirubin 0.3mg/dl Aspartate Amino Transf (AST/SGOT) 50IU/L Alanine Aminotransferase (ALT/SGPT) 55IU/L Alkaline Phosphatase 94IU/L Troponin I 0.019ng/ml Total Protein 8.4g/dl Albumin 4.3g/dl Globulin 4.10g/dl Albumin/Globulin Ratio 1.04 Amylase Level 106U/L Lipase 168U/L Valproic Acid (Depakene) Level < 10ug/ml Current Medications Medications (Trade) Dose Ordered Sig/Luis Route PRN Reason Start Time Stop Time Status Last Admin Dose Admin Albuterol (Proventil 0.5% (Neb)) 10 mg ONCE STAT INH 09/29/16 08:05 09/29/16 08:08 DC 09/29/16 08:17 Ipratropium Amlin (Atrovent 0.02% (Neb)) 1 mg ONCE STAT INH 09/29/16 08:05 09/29/16 08:08 DC 09/29/16 08:16 Methylprednisolone Sodium Succinate 125 mg 125 mg ONCE STAT IV 09/29/16 08:05 09/29/16 08:08 DC 09/29/16 08:20 Piperacillin Sod/ Tazobactam Sod 100 ml @ 200 mls/hr ONCE STAT IVPB 09/29/16 08:24 4 08:53 DC 09/29/16 08:50 Levofloxacin/ Dextrose (Levaquin 750 Mg/ D5W 150 ml (Pmx)) 150 ml @ 100 mls/hr ONCE STAT IVPB 09/29/16 08:24 09/29/16 09:53 DC 09/29/16 09:46 Ondansetron HCl (Zofran Inj) 4 mg ER BRIDGE PRN IV NAUSEA AND/OR VOMITING 09/29/16 09:30 09/30/16 09:29 Acetaminophen (Tylenol Tab) 650 mg ER BRIDGE PRN PO MILD PAIN/FEVER 09/29/16 09:30 09/30/16 09:29 Procedures/MDM The patient presented to the emergency department with shortness of breath. My differential diagnosis included but was not limited to upper airway obstruction , CHF, pulmonary embolism, cardiac ischemia, pneumonia, pneumothorax, anemia, drug overdose, pulmonary edema, COPD or asthma. Patient has a known history of COPD and had respiratory acidosis. Due to the severity of symptoms he was immediately placed on noninvasive mechanical ventilation. The patient had significant improvement with the BiPAP and nebulizer treatments of albuterol Atrovent and was treated with 125 mg of Solu- Medrol. The patient had leukocytosis however he is currently on steroids and I did feel this was likely the cause of the patient's leukocytosis versus sepsis. The patient however had blood cultures and urine cultures obtained and was continued on IV Levaquin and was also given IV Zosyn as the patient has an allergy to vancomycin. 12 Lead EKG tracing ordered and reviewed by myself showed: Sinus tachycardia 110 bpm and no arrhythmia. TX interval normal. QRS duration normal. No ST segment elevation No ST segment depression. No changes consistent with acute ischemia. Chest radiograph for and reviewed by myself indicated the followin. Increasing subsegmental atelectasis seen in the left lung base. 2. Diffusely increased interstitial markings suspicious for chronic interstitial scarring, unchanged. 3. Atherosclerotic aorta. Patient will be admitted in serious condition to his primary care physician Dr. Pereira with an anticipated stay of greater than 2 midnights due to his severe respiratory distress. Patient will go to the telemetry service. Critical Care: Time: 60 minutes Treatments/Evaluations: Close monitoring and treatment of unstable vital signs, cardiorespiratory, and neurologic status, while maintaining tight balance of fluid, respiratory, and cardiac interventions. Time does not include performing any of the above billable procedures. Departure Diagnosis: Primary Impression: COPD with acute exacerbation Additional Impression: CO2 narcosis Condition: Serious HAFSA FAYE Sep 29, 2016 08:37
[2016-09-29 08:45] LABS: TROPONIN-I 0.019 ng/ml (0.00-0.12)
--- NOTE | 2016-09-29 08:59 | RADRPT ---
PROCEDURE: XR Chest AP portable CLINICAL INDICATION: Possible sepsis TECHNIQUE: An AP portable radiograph of the chest was submitted. COMPARISON: 09/24/2016 FINDINGS: Support Hardware: None Cardiovascular: The cardiovascular silhouette appears unremarkable except for atherosclerotic change involving the aorta. Lung Silver: Increased interstitial markings are again seen diffusely through the lung silver suspic ious for interstitial scarring. Increased subsegmental atelectasis is seen at the left lung base. Pleural Spaces: No pneumothorax or pleural effusion is identified. Osseous Structures: Degenerative spine changes are noted. Soft Tissues: The soft tissues appear generous. IMPRESSION: 1. Increasing subsegmental atelectasis seen in the left lung base. 2. Diffusely increased interstitial markings suspicious for chronic interstitial scarring, unchange d. 3. Atherosclerotic aorta. Physician Sally Date Time Electronically viewed and signed by Ashli Lock Physician on 09/29/2016 08:59 /
[2016-09-29] MEDS ORDERED: ACETAMINOPHEN 325 MG TAB PO PRN (09:30)
[2016-09-29] MEDS ORDERED: ONDANSETRON 4 MG INJ IV PRN (09:30)
[2016-09-29 09:41] LABS: AADO2 Arterial 475.8 mmHg (7.0-24.0); Allen Test ACCEPTAB; Arterial Base Excess 9.5 mmol/L (-3.0-3); Arterial COHb 0 % (0.0-3.0); Arterial Fraction of Oxyhgb 98.1 % (93.0-99.0); Arterial HCO3 39.2 mmol/L (22.0-26.0); Arterial MetHb 0.4 % (0.0-1.5); Arterial Total Hemglobin 12.4 g/dl (12.0-18.0); Blood Gas IEPAP 15/5; MODE MASK - BIPAP
[2016-09-29] MEDS ORDERED: ACETAMINOPHEN 500 MG TAB PO PRN (11:00)
[2016-09-29] MEDS: AL HYDROX/MG HYDROX/SIMETH 30 ML CUP PO SCH ×2 (11:00→16:51)
[2016-09-29] MEDS ORDERED: BISACODYL 10 MG SUPP PR PRN (11:00)
[2016-09-29] MEDS ORDERED: NA PHOSPHATE/BIPHOS 133 ML ENEMA PR PRN (11:00)
[2016-09-29] MEDS ORDERED: DOCUSATE SODIUM 100 MG CAP PO PRN (11:00)
[2016-09-29] MEDS ORDERED: MAGNESIUM HYDROXIDE 30ML CUP PO PRN (11:00)
--- NOTE | 2016-09-29 11:57 | HP ---
DATE OF ADMISSION: 09/29/2016 CHIEF COMPLAINT: Respiratory failure. HISTORY OF PRESENT ILLNESS: This is a 56-year-old male well known to me with a past medical history of COPD, history of hypercapnic chronic respiratory failure, history of hypertension, coronary rubio ry disease, history of paroxysmal AFib, history of anemia, GERD, bipolar disorder, who was recently admitted to [facility] and discharged 24 hours ago for COPD exacerbation. The maricel brown was admitted on 09/23/2016 and discharged on 09/28/2016. The patient returned [facility] a [facility], but overnight was noted to be agitated. The patient also refused wearing BiPAP at [facility]. Early this morning, the patient was noted to be confused, had difficulty breathing, desaturating . As a result, he was transferred to [facility] emergency room. Upon arrival, the patient had a chest x-ray which showed findings of subsegmental atelectasis increased in the left base as w ell as increased interstitial markings suspicious for interstitial scarring, unchanged. The patient in the emergency room, was afebrile, he was hypertensive with a systolic pressure of 160. An ABG w as performed which showed a pH of 7.28 and a pCO2 of 84. In the emergency room, the patient was linh kate on BiPAP, was given steroids, IV antibiotics. There were no reports, and the patient denies any hemoptysis, hemetemesis, hematochezia. Denies any active chest pain. PAST MEDICAL HISTORY: As stated above, history of COPD, history of hypercapnic respiratory failure, history of hypertension, coronary artery disease, paroxysmal AFib, anemia, GERD, anxiety disorder, bipolar disorder. MEDICATIONS: The patient's medications have been reviewed and reconciled. PAST SURGICAL HISTORY: None. SOCIAL HISTORY: Previous history of smoking crack cocaine use in the past, continues to use occasio nal cigarette. No longer abuses cocaine. FAMILY HISTORY: No family history of kidney disease, heart disease. ALLERGIES: NO KNOWN DRUG ALLERGIES. REVIEW OF SYSTEMS: A 14-point review of systems was conducted. Pertinent positives stated in the H PI, otherwise negative. PHYSICAL EXAMINATION: VITAL SIGNS: Blood pressure 147/55, pulse 70, respirations 18, temperature 96.9. HEENT: Head is normocephalic. Pupils are reactive. NECK: Supple. HEART: Tachycardic. LUNGS: Show diminished breath sounds at the bases. Positive wheezes. ABDOMEN: Soft, nontender to palpation. No rebound or guarding. EXTREMITIES: Negative for clubbing, cyanosis. Trace edema. DERMATOLOGIC: No rashes. MUSCULOSKELETAL: No joint effusions. NEUROLOGIC: Limited exam due to lack of patient cooperation, but no obvious focal deficits. LABORATORY DATA: Shows white count 25.2, hemoglobin 12.6, hematocrit 42.3, platelet count is 255. Sodium 147, potassium 4.2, chloride 90, bicarbonate 25, BUN 32, creatinine 0.73. AST 50. Valproic acid level is subtherapeutic. IMAGING STUDIES: As stated in the HPI. ASSESSMENT AND PLAN: This is a 56-year-old male who presents with: 1. Acute on chronic hypoxemic, hypercarbic respiratory failure secondary to chronic obstructive pul monary disease exacerbation. The patient is currently on BiPAP. His ABG showed significant hyperca pnia with a pCO2 of 84. Plan at this point is to continue current BiPAP therapy. We will continue steroids, Solu-Medrol 40 mg IV b.i.d. Continue antibiotic therapy. A pulmonary consult will be [facility] for evaluation. We will monitor the patient closely. 2. Sepsis secondary to pneumonia. The patient is currently on IV antibiotics. We will continue cu rrent antibiotic regimen. The patient's chest x-ray shows no obvious infiltrate. We will monitor c losely. The patient's lactic acid levels are within normal limits. We will check a procalcitonin l evel. We will also check blood cultures, urine culture. Place an ID consult with Dr. Brown for ev aluation. 3. Leukocytosis, etiology is felt to be secondary to infection with possible component of steroids. We will continue to monitor. Continue treatment plan as stated above. 4. Hypernatremia. The patient will be started on hypertonic fluid, half NS 50 mL/hour. We will mo nitor. 5. Respiratory acidosis with metabolic compensation. The patient's ABG was reviewed. We will cont inue BiPAP, repeat an ABG. 6. Anemia of chronic disease. Continue to monitor hemoglobin and hematocrit levels. 7. History of paroxysmal atrial fibrillation, currently in sinus rhythm. Continue amiodarone and m etoprolol. 8. History of coronary artery disease. Continue medical management with statin therapy, aspirin. 9. Bipolar disorder. We will continue to monitor. We will hold valproic acid as the patient is le thargic. 10. Acute encephalopathy, etiology secondary to CO2 narcosis. We will continue to treat underlying respiratory failure and monitor. 11. Hypertension. Continue current blood pressure regimen. 12. Gastrointestinal and deep venous thrombosis prophylaxis. The patient will be placed on sequent ial leg squeezers, Protonix and Lovenox. Dictated By: RAMY PERRY/ALYSON Conf#: [id number] DID#: [id number]
[2016-09-29] MEDS ORDERED: SUCCINYLCHOLINE CHLORIDE 100 MG/5 ML SYG IV ONE (12:00)
[2016-09-29] MEDS ORDERED: ETOMIDATE 20 MG INJ ONE (12:00)
[2016-09-29] MEDS: ARTIFICIAL TEARS 15 ML OPH BOTH EYES SCH ×2 (13:00→21:00)
[2016-09-29] MEDS ORDERED: ONDANSETRON 4 MG INJ IV STA (15:07)
[2016-09-29] MEDS ORDERED: morphine 4 MG/ML VIAL IV STA (15:07)
[2016-09-29] MEDS ORDERED: LORAZEPAM 2 MG INJ IV ONE ×2 (15:30→17:30)
[2016-09-29] MEDS ORDERED: ALBUTEROL 0.083% (NEB) 2.5 MG/3 ML AMP HHN STA (18:40)
[2016-09-29 19:16] LABS: AADO2 Arterial 210.9 mmHg (7.0-24.0); Allen Test ACCEPTAB; Arterial Base Excess 21.4 mmol/L (-3.0-3); Arterial COHb 0.2 % (0.0-3.0); Arterial Fraction of Oxyhgb 93.3 % (93.0-99.0); Arterial HCO3 56.2 mmol/L (22.0-26.0); Arterial MetHb 0.3 % (0.0-1.5); Arterial Total Hemglobin 12.4 g/dl (12.0-18.0); Blood Gas IEPAP 15/5; MODE MASK - BIPAP
[2016-09-29] MEDS ORDERED: PROPOFOL 100 ML IV STA (19:18)
[2016-09-29] MEDS ORDERED: ETOMIDATE 20 MG INJ IV STA (19:18)
[2016-09-29] MEDS ORDERED: SUCCINYLCHOLINE CHLORIDE 100 MG/5 ML SYG IV STA (19:18)
[2016-09-29] MEDS ORDERED: HYDROmorphONE 1 MG/ML SYG IV ONE (19:30)
--- NOTE | 2016-09-29 19:32 | QN ---
Documentation Comment Endotracheal Intubation by me: Pre assessment performed. Pre-oxygenation performed with 100% oxygen RSI: Performed w/o complication or hypoxic events. Medications as ordered. Blade: MAC 4 Glidescope ET Tube: 7.5 cm Depth: 24 cm at the lip Intubation confirmed by colorimetric CO2, equal breath sounds, quiet over the stomach. Chest x-ray pending Dr. Pereira was called to inform that the patient was intubated and will need upgrade to the intensive care unit. DAVID LINDSAY MD Sep 29, 2016 19:32
[2016-09-29] MEDS ORDERED: SOD CHLORIDE 0.9% 1,000 ML IV STA (20:00)
[2016-09-29] MEDS ORDERED: MIDAZOLAM (DRIP) 50 mg/50 mL 50 ML IV STA (20:12)
[2016-09-29] MEDS ORDERED: SOD CHLORIDE 0.45% 1,000 ML IV SCH (20:30)
[2016-09-29] MEDS ORDERED: MIDAZOLAM 1 MG/ML 2 ML INJ IV ONE (20:30)
[2016-09-29] MEDS ORDERED: VECURONIUM 10 MG VIAL IV ONE (21:00)
[2016-09-29] MEDS: L ACIDOPHIL/B LACTIS/B LONGUM CAPSULE PO SCH (21:00)
[2016-09-29] MEDS: METOPROLOL 25 MG TAB PO SCH (21:00)
[2016-09-29] MEDS ORDERED: MIDAZOLAM 1 MG/ML 5 ML INJ IV ONE (21:00)
--- NOTE | 2016-09-29 21:11 | RADRPT ---
PROCEDURE: XR Chest. CLINICAL INDICATION: Intubation. TECHNIQUE: Portable AP view of the chest was obtained. COMPARISON: 09/24/2016 FINDINGS: The cardiomediastinal silhouette is within normal limits. Distal tip of a new endotracheal tube pro jects 4 cm above the vidhi in satisfactory position. A nasogastric tube is traceable to below the diaphragm and inferior margin of the exposure presumably within the stomach. Interval worsening of interstitial infiltrate in the right lower greater than upper lobes with stable scarring and volume loss in the left lower lobe, elevation of the left hemidiaphragm is again seen. The osseous structu res are intact with no evidence for acute abnormality. Calcification is visible within the aorta. RPTAT:HJJR IMPRESSION: 1. Distal tip of the endotracheal tube is in good position projecting 4 cm above the vidhi. 2. New nasogastric tube is below the diaphragm and inferior margin of the exposure presumably withi n the stomach. 3. Radiographic worsening of interstitial infiltrate involving the right lower greater than upper l obes concerning for interstitial pneumonia. Physician Rickey Date Time Electronically viewed and signed by Physician Rickey on 09/29/2016 21:11 JR/
[2016-09-29 21:19] LABS: AADO2 Arterial 259.8 mmHg (7.0-24.0); Allen Test ACCEPTAB; Arterial Base Excess 17.2 mmol/L (-3.0-3); Arterial COHb 0.3 % (0.0-3.0); Arterial Fraction of Oxyhgb 98.8 % (93.0-99.0); Arterial HCO3 47.6 mmol/L (22.0-26.0); Arterial MetHb 0.4 % (0.0-1.5); Arterial Total Hemglobin 11.7 g/dl (12.0-18.0); MODE VENT - AC
[2016-09-29 21:40] VITALS: TEMP 98.1
[2016-09-29] MEDS ORDERED: FENTAnyl (DRIP) 1000 mcg/100mL 100 ML IV ONE (23:00)
[2016-09-29] MEDS: PIPER-TAZO 3.375 GM IV (PMX) 100 ML IVPB SCH (23:36)
[2016-09-30] VITALS (71 sets, daily range): BP systolic 105–139; BP diastolic 68–99; PULSE 76–103; RESP 14–21; Ht 175.3 cm; Wt 120.0 kg
[2016-09-30] MEDS: ATORVASTATIN 10 MG TAB PO SCH ×2 (00:27→21:07)
[2016-09-30] MEDS: PANTOPRAZOLE (EC) 40 MG TAB PO SCH ×2 (00:27→09:06)
[2016-09-30] MEDS: MONTELUKAST 10 MG TAB PO SCH ×2 (00:27→21:07)
[2016-09-30] MEDS: LINEZOLID 600 MG/D5W (PMX) 300 ML IVPB SCH ×3 (01:04→21:07)
[2016-09-30] MEDS: AL HYDROX/MG HYDROX/SIMETH 30 ML CUP PO SCH ×4 (03:11→17:52)
[2016-09-30] MEDS: PIPER-TAZO 3.375 GM IV (PMX) 100 ML IVPB SCH (05:28)
[2016-09-30 06:14] LABS: ADD SCAN DIFF NO
[2016-09-30 06:18] LABS: BASOPHILS % 0.1 % (0.0-2.0); HEMATOCRIT 31.3 % (42.0-52.0); HEMOGLOBIN 9.6 g/dl (14.0-18.0); LYMPHOCYTES # 1.2 10^3/ul (0.8-2.9); LYMPHOCYTES % 6.7 % (15.0-51.0); MEAN CORPUSCULAR HEMOGLOBIN 30.7 pg (29.0-33.0); MEAN CORPUSCULAR HGB CONC 30.7 g/dl (32.0-37.0); MEAN PLATELET VOLUME 9.1 fl (7.4-10.4); MONOCYTE # 1.5 10^3/ul (0.3-0.9); MONOCYTES % 8.5 % (0.0-11.0); NEUTROPHIL # 14.3 10^3/ul (1.6-7.5); NEUTROPHILS % 83.2 % (39.0-77.0); PLATELET COUNT 176 10^3/UL (140-415); RED BLOOD COUNT 3.13 10^6/ul (4.70-6.10); RED CELL DISTRIBUTION WIDTH 13.2 % (11.5-14.5); WHITE BLOOD COUNT 17.2 10^3/ul (4.8-10.8)
[2016-09-30 06:33] LABS: CALCIUM 8.1 mg/dl (8.4-10.2); CREATININE 0.64 mg/dl (0.61-1.24); MAGNESIUM 2.1 mg/dl (1.7-2.5); POTASSIUM 4.1 mmol/L (3.5-5.1)
[2016-09-30] MEDS: MEROPENEM 500 MG/100 ML (PMX) 100 ML IVPB SCH ×3 (06:35→22:23)
[2016-09-30] MEDS: MIDAZOLAM (DRIP) 50 mg/50 mL 50 ML IV SCH ×5 (07:58→21:17)
[2016-09-30] MEDS: SOD CHLORIDE 0.9% 1,000 ML IV SCH ×2 (08:30→10:42)
[2016-09-30 08:35] LABS: IRON 95 ug/dl (35-150)
--- NOTE | 2016-09-30 08:38 | PN ---
DATE: 09/30/2016 SUBJECTIVE: The patient yesterday was intubated in the emergency room and was subsequently brought over to the intensive care unit. Overnight the patient has been clinically stable. There have been no reports of hemoptysis, hematemesis or hematochezia. OBJECTIVE: VITAL SIGNS: Blood pressure is currently 117/91, respirations 20, pulse 92, temperature 98.6. HEENT: Head is normocephalic. NECK: Supple. HEART: Regular rate. LUNGS: Showed diminished breath sounds at the base. ABDOMEN: Soft, nontender to palpation. No rebound or guarding. EXTREMITIES: Negative for clubbing or cyanosis. Trace edema. DERMATOLOGIC: No rashes. MUSCULOSKELETAL: Have no joint effusion. NEUROLOGIC: No change in exam. MEDICATIONS: The patient's medications have been reviewed. LABORATORY DATA: Shows sodium 133, potassium 4.1, chloride 91, BUN 26, creatinine 0.64, calcium 8.1 , phosphorus 1.0, magnesium 2.1. White count 17.2, hemoglobin 9.6, hematocrit 31.3, platelet count is 176. The patient's ABG shows a pH of 7.30, pCO2 of 97, pO2 of 47. IMAGING: Chest x-ray shows worsening interstitial infiltrates of the right lower lobe, concerning f or interstitial pneumonia. ASSESSMENT AND PLAN: 1. Ventilator-dependent respiratory failure secondary to chronic obstructive pulmonary disease exac erbation and underlying pneumonia. The patient is currently intubated due to severe hypercapnia. T he patient's repeat ABGs are improving, but CO2 levels are still markedly elevated. Plan at this po int is to continue the current medical management. Will adjust vent settings. Will repeat an ABG. Will place a pulmonary consult for evaluation. Will also continue treatment of underlying chronic obstructive pulmonary disease with Solu-Medrol, nebulizers and antibiotics. 2. Sepsis secondary to pneumonia. Will continue the current medical management. Continue IV antib iotics. The patient's blood cultures and procalcitonin levels are pending. Lactic acid levels are within normal limits. Will follow up with infectious disease for further recommendations. 3. Leukocytosis. Etiology is felt to be secondary to sepsis and underlying steroids. White count has been improving. Continue to monitor. 4. Acute encephalopathy. Etiology is secondary to underlying hypercapnia. The patient is currentl y intubated. Will continue to monitor. 5. Hyponatremia. Etiology is secondary to hypertonic fluid. Will switch fluids from half-normal s kristina and monitor. 6. Anemia, likely of chronic disease. Will check an iron panel, stool OB. No evidence of GI bleed . Monitor H and H levels. 7. Respiratory acidosis and metabolic compensation. Will continue to monitor. ABG has been reviewe d. 8. History of paroxysmal atrial fibrillation. Currently in sinus rhythm. Continue amiodarone and metoprolol. 9. History of coronary artery disease. Continue the current medical management. 10. Bipolar disorder. Continue to monitor, holding valproic acid. 11. Hypertension. Blood pressure is currently controlled. 12. Gastrointestinal and deep venous thrombosis prophylaxis. Continue Protonix, sequential leg squ eezers and Lovenox. 13. Nutrition. Will place a dietary consult to initiate tube feeding. 14. Hypophosphatemia. Will replete with potassium phosphate, 40 mEq IV x1. 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 Dictated By: RAMY PERRY/ALYSON Conf#: [id number] DID#: [id number]
[2016-09-30 08:46] LABS: TOTAL IRON BINDING CAPACITY 288 ug/dl (241-421)
--- NOTE | 2016-09-30 08:50 | CONS ---
Date/Time of Note Date/Time of Note DATE: 09/30/16 TIME: 08:46 Assessment/Plan Assessment/Plan Additional Assessment/Plan Chest x-ray was reviewed from yesterday which is showing infiltrative changes in the right lung. Endotracheal tube is at an adequate level. Current ventilator settings; AC of 20, tidal volume 550, PEEP of 5, 40% FiO2. ABGs were also reviewed. Assessment recommendations; 1. Patient admitted for hypercapnic respiratory failure now requiring intubation. 2. History of COPD, bipolar disorder, obstructive sleep apnea. As well as history of paroxysmal atrial fibrillation patient however currently in sinus rhythm. History of hypertension, coronary artery disease, history of crack cocaine abuse and current smoker. 3. Right-sided pneumonia possibly aspiration. Next 4. Significant leukocytosis. 5. Patient currently is being hyperventilated. Ventilator settings have been adjusted, assist control rate has been decreased to 16 with tidal volume decreased to 500. Continue current antibiotic regimen. Hold further steroid dosing. Patient will warrant a sedation vacation in 24 hours and will be assessed for possible weaning from ventilator. Consultation Date/Type/Reason Admit Date/Time Sep 29, 2016 at 09:25 Initial Consult Date Type of Consultation: Pulmonary/critical care 24 HR Interval Summary Free Text/Dictation This is a reconsultation on Mr. hodge. The patient was discharged on the of this month after being admitted here for hypercapnic respiratory failure was doing fairly well , was discharge to nursing facility however the patient apparently refused BiPAP over there and again developed CO2 narcosis and respiratory failure. Was transferred back to the hospital where he was intubated by the ER physician for severe acute hypercapnic respiratory failure. Chest x-ray also was done which is showing worsening right-sided infiltrative changes suggestive for possible aspiration pneumonia. By the time I saw the patient in ICU the patient is orally intubated and sedated. Exam/Review of Systems Vital Signs Vitals Vital Signs Date Time Temp Pulse Resp B/P Pulse Ox O2 Delivery O2 Flow Rate FiO2 09/30/16 08:00 88 09/30/16 06:00 40 09/30/16 06:00 20 117/91 97 Mechanical Ventilator 09/30/16 04:00 98.6 Intake and Output 09/29/16 09/29/16 09/30/16 15:00 23:00 07:00 Intake Total 1819.5 ml Output Total 300 ml 1110 ml Balance -300 ml 709.5 ml Exam HEENT exam is; supple neck, JVD difficult to see because of short neck. Patient has fair dentition. Pupils are small bilaterally. No neck masses, no thyromegaly. Orally intubated. Chest examined; diminished breath sounds throughout. S1-S2 audible, no murmurs. Regular rhythm. Abdomen examination; soft, grossly protuberant. Bowel sounds audible. Extremity exam is; no peripheral edema. Pulses 1+ bilaterally. 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 Results Result Diagram: 09/30/16 0547 09/30/16 0547 Results 24 hrs Laboratory Tests Test 09/29/16 18:40 09/29/16 19:55 09/30/16 05:47 Blood Gas Specimen Source Blood arterial Blood arterial Arterial Blood Date Drawn 09/29/2016 7:03:15 PM 09/29/2016 9:07:56 PM Arterial Blood pH (Temp corrected) 7.184 *L 7.307 L Arterial Blood pCO2 (Temp correct) 152.6 *H 97.4 *H Arterial Blood pO2 (Temp corrected) 86.6 355.8 H Arterial Blood HCO3 56.2 *H 47.6 *H Arterial Blood Base Excess 21.4 H 17.2 H Arterial Blood Oxygen Saturation 93.8 L 99.5 H Elijah Test ACCEPTAB ACCEPTAB Arterial Blood Gas Puncture Site Left Radial Left Radial Arterial Blood Carboxyhemoglobin 0.2 0.3 Arterial Blood Methemoglobin 0.3 0.4 Blood Gas A-a O2 Differential 210.9 H 259.8 H Oxyhemoglobin Percent 93.3 98.8 Total Hemoglobin 12.4 11.7 L Blood Gas Temperature 37.0 37.0 Blood Gas Respiration Rate 16.0 20.0 Blood Gas Actual Respiration Rate 16 20 Blood Gas Modality MASK - BIPAP VENT - AC FiO2 65.0 100.0 Blood Gas Inspiratory Time 1.0 Blood Gas IPAP/EPAP Ratio 15/5 Blood Gas Critical Value Read Back Manohar LINDSAY MD, B MD Blood Gas Notified Whom AA AA Blood Gas Notified Time 09/29/2016 7:15:45 PM 09/29/2016 9:19:01 PM Blood Gas Tidal Volume 550.0 Blood Gas Low PEEP Setting 5.0 Blood Gas Inspiratory Pressure 37.0 White Blood Count 17.2 #H Red Blood Count 3.13 #L Hemoglobin 9.6 #L Hematocrit 31.3 #L Mean Corpuscular Volume 100.0 Mean Corpuscular Hemoglobin 30.7 Mean Corpuscular Hemoglobin Concent 30.7 L Red Cell Distribution Width 13.2 Platelet Count 176 # Mean Platelet Volume 9.1 Neutrophils % 83.2 H Lymphocytes % 6.7 L Monocytes % 8.5 Eosinophils % 0.0 Basophils % 0.1 Nucleated Red Blood Cells % 0.0 Neutrophils # 14.3 H Lymphocytes # 1.2 Monocytes # 1.5 H Eosinophils # 0.0 Basophils # 0.0 Nucleated Red Blood Cells # 0.0 Sodium Level 133 L Potassium Level 4.1 Chloride Level 91 L Carbon Dioxide Level 40 H Anion Gap 6 #L Blood Urea Nitrogen 26 H Creatinine 0.64 Glucose Level 110 # Calcium Level 8.1 L Phosphorus Level 1.0 L Magnesium Level 2.1 Iron Level 95 Total Iron Binding Capacity Pending Percent Iron Saturation Pending Medications Medications Current Medications Acetaminophen (Tylenol Tab) 650 mg Q4H PRN PO MILD PAIN LEVEL 1-3; Start at 11:00 Acetaminophen (Tylenol Tab) 1,000 mg Q4H PRN PO PAIN LEVEL 4-6/10; Start at 11:00 Amiodarone HCl (Cordarone) 200 mg DAILY PO ; Start 09/30/16 at 09:00 Ascorbic Acid (Vitamin C) 500 mg DAILY PO ; Start 09/30/16 at 09:00 Aspirin (Aspirin) 81 mg DAILY PO ; Start 09/30/16 at 09:00 Atorvastatin Calcium (Lipitor) 5 mg QHS PO Last administered on 09/30/16 00:27 ; Admin Dose 5 MG; Start 09/29/16 at 21:00 Bisacodyl (Dulcolax Supp) 10 mg DAILY PRN [place] CONSTIPATION; Start 09/29/16 at 11 :00 Docusate Sodium (Colace) 200 mg QHS PRN PO CONSTIPATION; Start 09/29/16 at 11: 00 Loratadine (Claritin) 10 mg DAILY PO ; Start 09/30/16 at 09:00 Al Hydrox/Mg Hydrox/Simethicone (Mag-Al Plus) 30 ml Q6H PO Last administered on 09/30/16 05:28; Admin Dose 30 ML; Start 09/29/16 at 11:00 Magnesium Hydroxide (Milk Of Mag) 30 ml DAILY PRN PO CONSTIPATION; Start at 11:00 Metoprolol Tartrate (Lopressor) 25 mg BID PO ; Start 09/29/16 at 21:00 Montelukast Sodium (Singulair) 10 mg QHS PO Last administered on 09/30/16 00: 27; Admin Dose 10 MG; Start 09/29/16 at 21:00 Multivitamins Therapeutic (Theragran) 1 tab DAILY PO ; Start 09/30/16 at 09:00 Sodium Biphosphate/ Sodium Phosphate (Fleet Enema) 118 ml prn PRN [place] CONSTIPATION; Start 09/29/16 at 11:00 Pantoprazole (Protonix Tab) 40 mg BID PO Last administered on 09/30/16 00:27; Admin Dose 40 MG; Start 09/29/16 at 21:00 Eye Lubricant (Artificial Tears Oph) 1 drop TID BOTH EYES ; Start 09/29/16 at 13 :00 Lactobacillus Acidophilus 1 each 1 each BID PO ; Start 09/29/16 at 21:00 Fentanyl 100 ml @ 2.5 mls/hr TITRATE ONCE IV Last administered on 09/29/16 23:23; Admin Dose 2.5 MLS/HR; Start 09/29/16 at 23:00; Stop 10/01/16 at 14:59 Meropenem 100 ml @ 200 mls/hr Q8 IVPB Last administered on 09/30/16 06:35; Admin Dose 200 MLS/HR; Start 09/30/16 at 06:00 Linezolid 300 ml @ 300 mls/hr Q12 IVPB Last administered on 09/30/16 01:04; Admin Dose 300 MLS/HR; Start 09/29/16 at 23:30 Fentanyl 100 ml @ 2.5 mls/hr TITRATE IV ; Start 09/30/16 at 07:00 Midazolam HCl 50 ml @ 1 mls/hr TITRATE IV Last administered on 09/30/16 07:58 ; Admin Dose 10 MLS/HR; Start 09/30/16 at 07:00 Sodium Chloride (NS) 1,000 ml @ 50 mls/hr Q20H IV ; Start 09/30/16 at 08:30 Enoxaparin Sodium 40 mg 40 mg DAILY SC ; Start 09/30/16 at 09:00 Potassium Phosphate 40 meq/ Sodium Chloride 259.0909 ml @ 64.773 m... ONCE ONCE IVPB ; Start 09/30/16 at 10:00; Stop 09/30/16 at 13:59 Levofloxacin/ Dextrose (Levaquin 750 Mg/ D5W 150 ml (Pmx)) 150 ml @ 100 mls/hr Q24H IVPB ; Start 09/30/16 at 09:30 SHARON LLAMAS Sep 30, 2016 08:50
--- NOTE | 2016-09-30 08:53 | CONS ---
DATE OF ADMISSION: 09/29/2016 DATE OF CONSULTATION: 09/30/2016 REFERRING PHYSICIAN: Dr. Pereira REASON FOR CONSULTATION: Respiratory failure, atrial fibrillation. CHIEF COMPLAINT: Respiratory failure. HISTORY OF PRESENT ILLNESS: Thank you for this referral. History obtained from the review of the [facility], discussion with physician and staff. The patient ____ history, old chart reviewed as well. T his is an unfortunate 56-year-old gentleman with history of COPD, hypercapnic respiratory failure, h ypertension, history of coronary artery disease and paroxysmal atrial fibrillation who was admitted to the hospital recently and just discharged the day before admission. The patient was sent home to the [facility]. Also has psych disorder, bipolar disorder. He was noted to be agitated and conf used. He was brought into the emergency room and was noted to be confused and having difficulty elma athing and desaturating ____ in the BiPAP in the emergency room. However, he progressed to increasi ng lethargy and hypercapnic respiratory failure and had to be intubated, currently intubated in the ICU. The patient has history of paroxysmal atrial fibrillation but currently remains in sinus rhyth m. He is intubated ____ history and no family is available. PAST MEDICAL HISTORY: History of COPD, history of hypercapnic respiratory failure, hypertension, po ssible coronary artery disease, paroxysmal atrial fibrillation, anemia, gastroesophageal reflux dise ase, anxiety disorder, bipolar disorder. MEDICATIONS: As per medication reconciliation, personally reviewed. PAST SURGICAL HISTORY: None. SOCIAL HISTORY: The patient smokes. Has used crack cocaine in the past ____ . Apparently no longer uses it. FAMILY HISTORY: No reported early coronary artery disease. ALLERGIES: NO REPORTED ALLERGIES. REVIEW OF SYSTEMS: As above-mentioned, otherwise negative ____ was obtained. PHYSICAL EXAMINATION: VITAL SIGNS: Temperature 98.6, heart rate of 92, blood pressure 117/90, respiration rate of 20, sat urating 97%. HEENT: Normocephalic, atraumatic. Obese gentleman. EYES: Pupils are equal. CARDIOVASCULAR: Regular rate and rhythm, systolic murmur. PULMONARY: With mild wheezes. GASTROINTESTINAL: Obese, soft, nontender. No rebound or guarding. EXTREMITIES: Trivial edema. LABORATORY: WBC of 17.2, hemoglobin 9.6, platelet 176. Sodium 133, potassium 4.1, CO2 is 40, was 4 5 yesterday, BUN of 26, creatinine 0.6, glucose of 110, phos is 1, mag is 2.1. Troponin 0.019. Doreen st x-ray initially shows increasing subsegmental atelectasis in left lung base with increased densit y markings, suspicious for chronic interstitial lung scarring, unchanged. Repeat chest x-ray shows ____ worsening of interstitial infiltrate involving the right greater than upper lobes, secondary to ventilator-associated pneumonia. ASSESSMENT AND PLAN: 1. Hypoxemia and hypercapnic respiratory failure, status post intubation. 2. Possible pneumonia. 3. History of possibly coronary artery disease. 4. History of paroxysmal atrial fibrillation. 5. History of psychiatric disorder. 6. Electrolyte abnormality. 7. Hypernatremia. 8. Respiratory acidosis with metabolic compensation. 9. Anemia. 10. Encephalopathy. 11. Hypertension. RECOMMENDATIONS: Continue with supportive care. The patient currently in sinus rhythm on amiodaron e, will continue. Aspirin will be continued for now. Antibiotic is managed as per ID and pulmonary recommendations. The statin will be continued. Beta toby as long as okay with pulmonary. I wi ll also order an echocardiogram as well for LV function. Continue the ICU care. Dictated By: BRENTON RIOS MD AV/ALYSON Conf#: [id number] DID#: [id number] CC: RAMY PEREIRA DO;*EndCC*
[2016-09-30 08:57] LABS: AADO2 Arterial 147.6 mmHg (7.0-24.0); Allen Test ACCEPTAB; Arterial Base Excess 18.9 mmol/L (-3.0-3); Arterial COHb 0.3 % (0.0-3.0); Arterial Fraction of Oxyhgb 98.4 % (93.0-99.0); Arterial HCO3 43.5 mmol/L (22.0-26.0); Arterial MetHb 0.2 % (0.0-1.5); Arterial Total Hemglobin 11.1 g/dl (12.0-18.0); Blood Gas Mean Airway Pressure 12; MODE VENT - AC
[2016-09-30] MEDS ORDERED: NON-FORMULARY/PATIENT OWN MED (Cranberry Extract (Cranberry) 425 MG) PO SCH (09:00)
[2016-09-30] MEDS: ASPIRIN 81 MG TAB PO SCH (09:05)
[2016-09-30] MEDS: MULTIVITAMINS THERAPEUTIC TAB PO SCH (09:05)
[2016-09-30] MEDS: METOPROLOL 25 MG TAB PO SCH ×2 (09:06→21:08)
[2016-09-30] MEDS: ASCORBIC ACID 500 MG TAB PO SCH (09:06)
[2016-09-30] MEDS: AMIODARONE 200 MG TAB PO SCH (09:06)
--- NOTE | 2016-09-30 09:09 | RADRPT ---
Echocardiogram Report Patient Name: SEJAL JADE Gender: Male Date: 1960 Study Date: 30-Sep-2016 Finish Inspector: Luz Dent RDCS Location: 105 Ref. Physician: BRENTON MURPHY Quality: Technically Difficult Study Procedures: Transthoracic echocardiogram with complete 2D, M-Mode, and doppler examination. Indications: Sepsis. 2D/M Mode Doppler Measurement Value Normal Ranges Measurement Value Normal Ranges LVIDd 2D 4.5 3.5 - 5.6 cm LVOT Peak Merlin 0.9 m/sec LVIDs 2D 2.0 2.1 - 4.1 cm LVOT Peak PG 3.3 mmHg LVPWd 2D 1.2 0.6 - 1.1 cm MV E Peak Merlin 0.7 m/sec IVSd 2D 1.1 0.6 - 1.1 cm MV A Peak Merlin 0.8 m/sec AoR Diam 2D 2.7 2.0 - 3.7 cm MV E/A 0.9 EDV 2D 93.5 cm3 MV Decel Time 216 msec ESV 2D 8.4 cm3 MV Decel [place] 3 LA Dimen 2D 3.2 2.3 - 4.0 cm MV E/A 0.9 TR Peak Merlin 2.4 m/sec TR Peak PG 23.5 mmHg RVSP 39.0 mmHg Findings Left Ventricle: Normal left ventricular systolic function. Normal left ventricular cavity size. Normal left ventricular wall thickness. Ejection fraction is visually estimated at 55 %. Tissue Doppler/Mitral Doppler indices are consistent with impaired relaxation (Stage I diastolic dysfunction). Right Ventricle: Not well visualized. Left Atrium: The left atrium is normal in size. Right Atrium: Not well visualized. Mitral Valve: Normal appearance and function of the mitral valve with trace physiologic regurgitation. Aortic Valve: No significant aortic stenosis or insufficiency. Aortic valve not well visualized. Tricuspid Valve: Normal appearance of the tricuspid valve. Estimated peak PA systolic pressure 44 mmHg. There is mild tricuspid regurgitation. Pulmonic Valve: Pulmonic valve not well visualized. Pericardium: Normal pericardium with no significant pericardial effusion. Aorta: Normal aortic root. IVC: Dilated inferior vena cava without respiratory collapse, however, patient on ventilator. Conclusions 1.Normal left ventricular systolic function. Normal left ventricular cavity size. Normal left ventricular wall thickness. Ejection fraction is visually estimated at 55 %. Tissue Doppler/Mitral Doppler indices are consistent with impaired relaxation (Stage I diastolic dysfunction). 2.Normal appearance and function of the mitral valve with trace physiologic regurgitation. 3.No significant aortic stenosis or insufficiency. Aortic valve not well visualized. 4.Normal appearance of the tricuspid valve. Estimated peak PA systolic pressure 44 mmHg. There is mild tricuspid regurgitation. 5.Dilated inferior vena cava without respiratory collapse, however, patient on ventilator. 6.very suboptimal study. Electronically Signed By: Brenton Murphy 30-Sep-2016 09:08:53 -0700 Patient Name: SEJAL JADE Study Date: 30-Sep-[id number]
[2016-09-30] MEDS: ARTIFICIAL TEARS 15 ML OPH BOTH EYES SCH ×3 (09:49→21:00)
[2016-09-30] MEDS: LEVOFLOXACIN 750MG/D5W (PMX) 150 ML IVPB SCH (09:50)
[2016-09-30] MEDS ORDERED: POTASSIUM PHOSPHATE 40 MEQ in SOD CHLORIDE 0.9% 250 ML IVPB ONE (10:00)
[2016-09-30] MEDS: ENOXAPARIN 40 MG/0.4 ML SYG SC SCH (10:01)
[2016-09-30] MEDS: LORATADINE 10 MG TAB PO SCH (11:00)
[2016-09-30] MEDS: L ACIDOPHIL/B LACTIS/B LONGUM CAPSULE PO SCH ×2 (17:52→21:07)
[2016-09-30] MEDS: FENTAnyl (DRIP) 1000 mcg/100mL 100 ML IV SCH ×2 (18:35→18:45)
--- NOTE | 2016-09-30 18:36 | PN ---
DATE: 09/30/2016 SUBJECTIVE: The patient was re-admitted yesterday and now intubated in ICU. The patient is sedated . He is in no distress. No fevers. Temperature 98.7, pulse 77, respirations 16, blood pressure 123/83, saturation 99% on 40 FIO2. WBC 17.2, H and H 9.6 and 31.3, platelets 176, neutrophils 83.2. BUN 26, creatinine 0.64. MICROBIOLOGY: Blood cultures pending. Chest x-ray revealed radiographic worsening of interstitial infiltrate involving right lower greater than upper lobes concerning for interstitial pneumonia. INDWELLINGS: Endotracheal tube, NG tube, Estrella catheter, peripheral IV. ANTIMICROBIALS: 1. Levaquin. 2. Zyvox 3. Merrem. ALLERGIES: VANCOMYCIN. PHYSICAL EXAMINATION: GENERAL: This is a morbidly obese middle-aged white man who is intubated, sedated, in no distress. HEENT: Head atraumatic, normocephalic. Sclerae anicteric. Buccal mucosa dry. NECK: Obese. Trachea midline. CHEST: Rise symmetrical. Breath sounds diminished to bases. HEART: S1, S2. ABDOMEN: Soft. Bowel tones hypoactive. EXTREMITIES: Trace edema. ASSESSMENT: 1. Acute on chronic hypoxemic respiratory failure. 2. Healthcare-associated pneumonia. 3. Severe chronic obstructive pulmonary disease with exacerbation. 4. History of paroxysmal atrial fibrillation. 5. Morbid obesity 6. History of psychiatric disorder. PLAN: We are going to continue patient on current antibiotics. Continue vent management as per Pul monary. Await for sputum cultures. Continue steroids, bronchodilators. Dictated By: NANCY MOREL PSYCHOLOGICAL ASSISTANT for ARVIN VERDUZCO/NTS Conf#: [id number] DID#: [id number]
[2016-09-30] MEDS: LANSOPRAZOLE 30 MG CAP NGT SCH (21:07)
[2016-09-30 21:15] LABS: AADO2 Arterial 107.3 mmHg (7.0-24.0); Allen Test ACCEPTAB; Arterial Base Excess 14.5 mmol/L (-3.0-3); Arterial COHb 0.1 % (0.0-3.0); Arterial Fraction of Oxyhgb 97.5 % (93.0-99.0); Arterial HCO3 41.5 mmol/L (22.0-26.0); Arterial MetHb 0.1 % (0.0-1.5); Arterial Total Hemglobin 11.2 g/dl (12.0-18.0); Blood Gas Mean Airway Pressure 17; MODE VENT - AC
[2016-10-01] VITALS (80 sets, daily range): BP systolic 88–115; BP diastolic 63–89; PULSE 73–87; RESP 14–19
[2016-10-01] MEDS: AL HYDROX/MG HYDROX/SIMETH 30 ML CUP PO SCH ×5 (01:04→23:46)
[2016-10-01] MEDS: MIDAZOLAM (DRIP) 50 mg/50 mL 50 ML IV SCH ×5 (02:00→23:42)
[2016-10-01] MEDS: FENTAnyl (DRIP) 1000 mcg/100mL 100 ML IV SCH ×2 (04:25→14:32)
[2016-10-01 04:45] LABS: ADD SCAN DIFF NO
[2016-10-01 04:53] LABS: BASOPHILS % 0.2 % (0.0-2.0); EOSINOPHILS # 0.5 10^3/ul (0.0-0.5); HEMOGLOBIN 10.3 g/dl (14.0-18.0); LYMPHOCYTES # 2.1 10^3/ul (0.8-2.9); LYMPHOCYTES % 13.8 % (15.0-51.0); MEAN CORPUSCULAR HEMOGLOBIN 30.8 pg (29.0-33.0); MEAN CORPUSCULAR HGB CONC 30.3 g/dl (32.0-37.0); MEAN CORPUSCULAR VOLUME 101.8 fl (82.0-101.0); MEAN PLATELET VOLUME 9.3 fl (7.4-10.4); MONOCYTE # 1.3 10^3/ul (0.3-0.9); MONOCYTES % 8.5 % (0.0-11.0); NEUTROPHIL # 11.4 10^3/ul (1.6-7.5); NEUTROPHILS % 73.1 % (39.0-77.0); PLATELET COUNT 188 10^3/UL (140-415); RED BLOOD COUNT 3.34 10^6/ul (4.70-6.10); RED CELL DISTRIBUTION WIDTH 13.7 % (11.5-14.5); WHITE BLOOD COUNT 15.5 10^3/ul (4.8-10.8)
[2016-10-01] MEDS: SOD CHLORIDE 0.9% 1,000 ML IV SCH (05:15)
[2016-10-01 05:20] LABS: CALCIUM 7.8 mg/dl (8.4-10.2); CREATININE 0.74 mg/dl (0.61-1.24); MAGNESIUM 2.2 mg/dl (1.7-2.5); PHOSPHORUS 2.6 mg/dl (2.5-4.9); POTASSIUM 4.2 mmol/L (3.5-5.1)
[2016-10-01] MEDS: MEROPENEM 500 MG/100 ML (PMX) 100 ML IVPB SCH ×3 (05:45→22:05)
[2016-10-01] MEDS: ACETAMINOPHEN 325 MG TAB PO PRN (07:58)
[2016-10-01] MEDS: MULTIVITAMINS THERAPEUTIC TAB PO SCH (07:58)
[2016-10-01] MEDS: AMIODARONE 200 MG TAB PO SCH (07:58)
[2016-10-01] MEDS: LORATADINE 10 MG TAB PO SCH (07:59)
[2016-10-01] MEDS: LANSOPRAZOLE 30 MG CAP NGT SCH ×2 (07:59→20:59)
[2016-10-01] MEDS: METOPROLOL 25 MG TAB PO SCH ×2 (07:59→21:00)
[2016-10-01] MEDS: ASPIRIN 81 MG TAB PO SCH (07:59)
[2016-10-01] MEDS: LINEZOLID 600 MG/D5W (PMX) 300 ML IVPB SCH ×2 (07:59→21:01)
[2016-10-01] MEDS: ASCORBIC ACID 500 MG TAB PO SCH (07:59)
[2016-10-01] MEDS: L ACIDOPHIL/B LACTIS/B LONGUM CAPSULE PO SCH ×2 (08:00→21:00)
[2016-10-01] MEDS: LEVOFLOXACIN 750MG/D5W (PMX) 150 ML IVPB SCH (08:32)
[2016-10-01] MEDS: ENOXAPARIN 40 MG/0.4 ML SYG SC SCH (08:33)
[2016-10-01] MEDS: ARTIFICIAL TEARS 15 ML OPH BOTH EYES SCH ×3 (09:00→21:03)
[2016-10-01 09:05] LABS: AADO2 Arterial 111.6 mmHg (7.0-24.0); Allen Test ACCEPTAB; Arterial Base Excess 10.4 mmol/L (-3.0-3); Arterial COHb 0.3 % (0.0-3.0); Arterial Fraction of Oxyhgb 96.9 % (93.0-99.0); Arterial MetHb 0.2 % (0.0-1.5); MODE VENT - AC
--- NOTE | 2016-10-01 09:06 | RADRPT ---
PROCEDURE: XR Chest. CLINICAL INDICATION: Shortness of breath. TECHNIQUE: Single frontal view. COMPARISON: 09/29/2016. FINDINGS: The endotracheal tube nasogastric tube remain in satisfactory position. There is mild pulmonary valente ma and atelectasis at the lung bases. The lungs are otherwise clear. The heart size is normal. There is calcification in the aorta consistent with atherosclerosis. There is no pleural effusion. There is no pneumothorax. IMPRESSION: 1. Endotracheal tube and nasogastric tube in satisfactory position. 2. Mild pulmonary edema. 3. Atelectasis at the lung bases. 4. Atherosclerosis. RPTAT: QQ .Immanuel Dean MD, MD Date Time Electronically viewed and signed by .Immanuel Dean MD, on 10/01/2016 09:06 .R/
--- NOTE | 2016-10-01 09:13 | PN ---
DATE: 10/01/2016 SUBJECTIVE: The patient remained intubated overnight. No acute events. No hemoptysis, hematemesis or hematochezia. The patient remains currently on sedation medication and is arousable with stimul i. OBJECTIVE: VITAL SIGNS: Blood pressure is 105/59, respirations 16, pulse 75, temperature 99.0. HEENT: Head is normocephalic. NECK: Supple. HEART: Regular rate. LUNGS: Showed diminished breath sounds at the base. ABDOMEN: Soft. No rebound or guarding. EXTREMITIES: Negative for clubbing or cyanosis. Trace edema. DERMATOLOGIC: No rashes. MUSCULOSKELETAL: Have no joint effusion. NEUROLOGIC: No change in exam. MEDICATIONS: The patient's medications have been reviewed. LABORATORY DATA: Shows sodium 134, potassium 4.2, chloride 97, BUN 21, creatinine 0.74. White coun t 15.5, hemoglobin 10.3, hematocrit 34.0, platelet count 188. The patient's ABG yesterday shows a p H of 7.4, pCO2 of 65. Blood cultures have been reviewed and are negative to date. ASSESSMENT AND PLAN: 1. Ventilator-dependent respiratory failure. The etiology is felt to be secondary to COPD exacerba tion, possible pneumonia. The patient is currently vent dependent. ABG has been reviewed. Chest x -ray has been reviewed. Plan is to continue the current treatment plan, continue IV antibiotics, ne bulizers, continue Solu-Medrol. Will follow up with pulmonary to see if the patient is a weaning ca ndidate at this time. 2. Sepsis secondary to pneumonia. The patient is clinically improving. Currently hemodynamically stable, not on pressors. Plan is to continue the current treatment plan, continue antibiotic therap y. Cultures have been reviewed and negative to date. Will follow up with ID for further recommenda tions. 3. Leukocytosis. Etiology is felt to be secondary to sepsis and underlying steroids. WBC has been slowly improving. Continue to monitor. 4. Acute encephalopathy. Etiology is secondary to hypercapnia. Continue to monitor. 5. Hyponatremia. The patient's sodium levels have been stable. Continue to monitor. 6. Anemia of chronic disease. The patient's iron panel was reviewed. No evidence of iron deficien cy. Will continue to monitor H and H levels. 7. Respiratory acidosis, with metabolic compensation. Will continue to monitor. 8. History of paroxysmal atrial fibrillation. Currently in sinus rhythm. Continue amiodarone and metoprolol. 9. History of coronary artery disease. Continue medical management. 10. Bipolar disorder. Continue to monitor. 11. Hypertension. Blood pressure is currently normotensive. Continue to monitor. 12. Hyperphosphatemia. Improved. Continue to monitor. 13. Nutrition. Will consider starting the patient on tube feeding if patient is not weaned today. 14. Gastrointestinal and deep venous thrombosis prophylaxis. Continue Protonix and Lovenox. Please note, I spent over 40 minutes of critical care time with this patient. Dictated By: RAMY PERRY/NTS Conf#: [id number] DID#: [id number]
--- NOTE | 2016-10-01 09:34 | CONS ---
Date/Time of Note Date/Time of Note DATE: 10/01/16 TIME: 09:29 Assessment/Plan Assessment/Plan Additional Assessment/Plan Chest x-ray was reviewed from today which is showing improving right-sided infiltrative changes. Endotracheal tube is at an adequate level. She is on fentanyl drip at 100 mics per hour, Versed 10 mg/h. Ventilator settings; AC of 16, tidal volume 500, PEEP of 5, 40% FiO2. Assessment recommendations; 1. Patient admitted for hypercapnic respiratory failure requiring intubation. 2. Underlying morbid obesity and underlying severe sleep apnea with chronic CO2 retention. 3. Right-sided pneumonia with interval improvement. 4. History of hypertension, COPD, history of paroxysmal atrial fibrillation, and bipolar disorder. For sedation for now. once the patient is off sedative effect he will be evaluated for possible weaning from ventilator. Consultation Date/Type/Reason Admit Date/Time Sep 29, 2016 at 09:25 Type of Consultation: Pulmonary/critical care 24 HR Interval Summary Free Text/Dictation Patient condition remains critical. Still requiring full ventilator support. Patient however has remained hemodynamically stable. General exam; middle-aged man, morbidly obese, orally intubated and sedated. Currently in no distress. Exam/Review of Systems Vital Signs Vitals Vital Signs Date Time Temp Pulse Resp B/P Pulse Ox O2 Delivery O2 Flow Rate FiO2 10/01/16 07:15 99.0 75 16 105/79 100 Mechanical Ventilator 10/01/16 05:42 40 Intake and Output 09/30/16 09/30/16 10/01/16 15:00 23:00 07:00 Intake Total 860 ml 1175 ml 640 ml Output Total 470 ml 555 ml 745 ml Balance 390 ml 620 ml -105 ml Exam HEENT exam is; supple neck, JVD difficult to see because of short neck. Orally intubated. Midsize pupils. Reactive to light. No neck masses. No thyromegaly. Chest exam is; diminished but clear breath sound bilaterally. No added salt. S1-S2 audible, no murmurs. Regular rhythm. Abdomen examination; soft, protuberant. Bowel sounds audible. Extremity exam; no peripheral edema. Pulses 1+ bilaterally. No clubbing. 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 Results Result Diagram: 10/01/16 0433 10/01/16 0433 Results 24 hrs Laboratory Tests Test 09/30/16 21:00 10/01/16 04:33 10/01/16 09:00 Blood Gas Specimen Source Blood arterial Blood arterial Arterial Blood Date Drawn 09/30/2016 9:01:29 PM 10/01/2016 8:55:28 AM Arterial Blood pH (Temp corrected) 7.420 7.403 Arterial Blood pCO2 (Temp correct) 65.4 H 60.7 H Arterial Blood pO2 (Temp corrected) 102.7 H 103.8 H Arterial Blood HCO3 41.5 *H 37.0 H Arterial Blood Base Excess 14.5 H 10.4 H Arterial Blood Oxygen Saturation 97.7 97.4 Elijah Test ACCEPTAB ACCEPTAB Arterial Blood Gas Puncture Site Right Radial Right Radial Arterial Blood Carboxyhemoglobin 0.1 0.3 Arterial Blood Methemoglobin 0.1 0.2 Blood Gas A-a O2 Differential 107.3 H 111.6 H Oxyhemoglobin Percent 97.5 96.9 Total Hemoglobin 11.2 L 11.0 L Blood Gas Temperature 37.0 37.0 Blood Gas Respiration Rate 16.0 16.0 Blood Gas Actual Respiration Rate 18 16 Blood Gas Modality VENT - AC VENT - AC FiO2 40.0 40.0 Blood Gas Tidal Volume 500.0 500.0 Blood Gas Mean Airway Pressure 17 Blood Gas Low PEEP Setting 5.0 5.0 Blood Gas Inspiratory Pressure 46.0 Blood Gas Critical Value Read Back Luz CARTY R.N. Blood Gas Notified Whom YUDI RAO Blood Gas Notified Time 09/30/2016 9:15:28 PM 10/01/2016 9:05:03 AM White Blood Count 15.5 H Red Blood Count 3.34 L Hemoglobin 10.3 L Hematocrit 34.0 L Mean Corpuscular Volume 101.8 H Mean Corpuscular Hemoglobin 30.8 Mean Corpuscular Hemoglobin Concent 30.3 L Red Cell Distribution Width 13.7 Platelet Count 188 Mean Platelet Volume 9.3 Neutrophils % 73.1 Lymphocytes % 13.8 L Monocytes % 8.5 Eosinophils % 3.0 Basophils % 0.2 Nucleated Red Blood Cells % 0.0 Neutrophils # 11.4 H Lymphocytes # 2.1 Monocytes # 1.3 H Eosinophils # 0.5 Basophils # 0.0 Nucleated Red Blood Cells # 0.0 Sodium Level 134 L Potassium Level 4.2 Chloride Level 97 Carbon Dioxide Level 37 H Anion Gap 4 L Blood Urea Nitrogen 21 H Creatinine 0.74 Glucose Level 84 Calcium Level 7.8 L Phosphorus Level 2.6 Magnesium Level 2.2 Medications Medications Current Medications Acetaminophen (Tylenol Tab) 650 mg Q4H PRN PO MILD PAIN LEVEL 1-3 Last administered on 10/01/16 07:58; Admin Dose 650 MG; Start 09/29/16 at 11:00 Acetaminophen (Tylenol Tab) 1,000 mg Q4H PRN PO PAIN LEVEL 4-6/10; Start at 11:00 Amiodarone HCl (Cordarone) 200 mg DAILY PO Last administered on 10/01/16 07:58 ; Admin Dose 200 MG; Start 09/30/16 at 09:00 Ascorbic Acid (Vitamin C) 500 mg DAILY PO Last administered on 10/01/16 07:59 ; Admin Dose 500 MG; Start 09/30/16 at 09:00 Aspirin (Aspirin) 81 mg DAILY PO Last administered on 10/01/16 07:59; Admin Dose 81 MG; Start 09/30/16 at 09:00 Atorvastatin Calcium (Lipitor) 5 mg QHS PO Last administered on 09/30/16 21:07 ; Admin Dose 5 MG; Start 09/29/16 at 21:00 Bisacodyl (Dulcolax Supp) 10 mg DAILY PRN [place] CONSTIPATION; Start 09/29/16 at 11 :00 Docusate Sodium (Colace) 200 mg QHS PRN PO CONSTIPATION; Start 09/29/16 at 11: 00 Loratadine (Claritin) 10 mg DAILY PO Last administered on 10/01/16 07:59; Admin Dose 10 MG; Start 09/30/16 at 09:00 Al Hydrox/Mg Hydrox/Simethicone (Mag-Al Plus) 30 ml Q6H PO Last administered on 10/01/16 05:45; Admin Dose 30 ML; Start 09/29/16 at 11:00 Magnesium Hydroxide (Milk Of Mag) 30 ml DAILY PRN PO CONSTIPATION; Start at 11:00 Metoprolol Tartrate (Lopressor) 25 mg BID PO Last administered on 10/01/16 07: 59; Admin Dose 25 MG; Start 09/29/16 at 21:00 Montelukast Sodium (Singulair) 10 mg QHS PO Last administered on 09/30/16 21: 07; Admin Dose 10 MG; Start 09/29/16 at 21:00 Multivitamins Therapeutic (Theragran) 1 tab DAILY PO Last administered on 07:58; Admin Dose 1 TAB; Start 09/30/16 at 09:00 Sodium Biphosphate/ Sodium Phosphate (Fleet Enema) 118 ml prn PRN [place] CONSTIPATION; Start 09/29/16 at 11:00 Eye Lubricant (Artificial Tears Oph) 1 drop TID BOTH EYES Last administered on 09/30/16 17:52; Admin Dose 1 DROP; Start 09/29/16 at 13:00 Lactobacillus Acidophilus 1 each 1 each BID PO Last administered on 10/01/16 08:00; Admin Dose 1 EACH; Start 09/29/16 at 21:00 Fentanyl 100 ml @ 2.5 mls/hr TITRATE ONCE IV Last administered on 09/29/16 23:23; Admin Dose 2.5 MLS/HR; Start 09/29/16 at 23:00; Stop 10/01/16 at 14:59 Meropenem 100 ml @ 200 mls/hr Q8 IVPB Last administered on 10/01/16 05:45; Admin Dose 200 MLS/HR; Start 09/30/16 at 06:00 Linezolid 300 ml @ 300 mls/hr Q12 IVPB Last administered on 10/01/16 07:59; Admin Dose 300 MLS/HR; Start 09/29/16 at 23:30 Fentanyl 100 ml @ 2.5 mls/hr TITRATE IV Last administered on 10/01/16 04:25; Admin Dose 10 MLS/HR; Start 09/30/16 at 07:00 Midazolam HCl 50 ml @ 1 mls/hr TITRATE IV Last administered on 10/01/16 07:39 ; Admin Dose 10 MLS/HR; Start 09/30/16 at 07:00 Sodium Chloride (NS) 1,000 ml @ 50 mls/hr Q20H IV Last administered on 05:15; Admin Dose 50 MLS/HR; Start 09/30/16 at 08:30 Enoxaparin Sodium 40 mg 40 mg DAILY SC Last administered on 10/01/16 08:33; Admin Dose 40 MG; Start 09/30/16 at 09:00 Levofloxacin/ Dextrose (Levaquin 750 Mg/ D5W 150 ml (Pmx)) 150 ml @ 100 mls/hr Q24H IVPB Last administered on 10/01/16 08:32; Admin Dose 100 MLS/HR; Start at 09:30 Lansoprazole (Prevacid) 30 mg BID NGT Last administered on 10/01/16 07:59; Admin Dose 30 MG; Start 09/30/16 at 21:00 SHARON LLAMAS Oct 01, 2016 09:34
--- NOTE | 2016-10-01 15:27 | PN ---
DATE: 10/01/2016 INFECTIOUS DISEASE PROGRESS NOTE SUBJECTIVE: No acute changes. The patient remains sedated, intubated. No fevers overnight. Temper ature 99, pulse 80, respirations 16, blood pressure 105/79, saturation 100 on 40 FIO2. WBC 15.5, H and H 10.3 and 34, platelets 188. No shift, no bands. BUN 21, creatinine 0.74. MICROBIOLOGY: Blood cultures remain negative. Sputum culture pending. DIAGNOSTICS: Chest x-ray revealed atelectasis and mild pulmonary edema. INDWELLINGS: Endotracheal tube, NG tube, Estrella catheter. ANTIMICROBIALS: 1. Merrem 2. Zyvox. 3. Levaquin. PHYSICAL EXAMINATION: GENERAL: Morbidly obese, well-developed, middle-aged white man, who is intubated and sedated. The patient is in no distress. HEENT: Head atraumatic, normocephalic. Sclerae anicteric. Buccal mucosa dry. CHEST: Chest rise is symmetrical. Breath sounds diminished to the bases. HEART: S1, S2. ABDOMEN: Soft, bowel tones present. EXTREMITIES: Without cyanosis. ASSESSMENT: 1. Sepsis. 2. Acute respiratory failure. 3. Healthcare-associated pneumonia, possible aspiration. 4. Chronic obstructive pulmonary disease exacerbation. 5. Morbid obesity. 6. History of psychiatric issues. 7. ALLERGY TO VANCOMYCIN. PLAN: The patient remains stable on the appropriate antimicrobials, pending sputum cultures. Luis Manuel mary the present care. Pulmonary and cardiology recommendations. Dictated By: NANCY MOREL GLASS TECHNOLOGIST for ARVIN VERDUZCO/ALYSON Conf#: [id number] DID#: [id number]
--- NOTE | 2016-10-01 15:40 | PN ---
DATE: 10/01/2016 CARDIOLOGY FOLLOWUP SUBJECTIVE: Discussed with the staff. Rhythm strip was reviewed. The patient remains in sinus rhy thm, of atrial fibrillation. He is intubated on the vent. MEDICATIONS: Reviewed as per medication reconciliation, was personally reviewed. PHYSICAL EXAMINATION: VITAL SIGNS: Temperature 99, heart rate of 80, blood pressure 105/79, respiratory rate of 16, satur ating 99%. HEENT: Normocephalic, atraumatic. Obese gentleman. Eyes are closed. Status post intubation on th e vent. CARDIOVASCULAR: Regular rate and rhythm, systolic murmur. PULMONARY: Anteriorly with no wheezes, minimal rhonchi. GASTROINTESTINAL: Obese, soft, nontender. EXTREMITIES: Positive edema. NEUROLOGIC: Sedated. LABORATORY DATA: WBC of 15.5, hemoglobin 10.3, platelets 188. Sodium 134, potassium 4.2, BUN of 21 , creatinine 0.74, glucose of 84. Chest x-ray done today showed mild pulmonary edema. Echocardiogram was personally reviewed, which s hows ejection fraction of 55%. Dilated IVC ____. ASSESSMENT AND PLAN: 1. Hypoxemic and hypercapnic respiratory failure, status post intubation on the vent. 2. Chronic obstructive pulmonary disease exacerbation, possible pneumonia. 3. Status post sepsis and shock, currently blood pressure is improved. 4. History of paroxysmal atrial fibrillation, currently in sinus rhythm. 5. History of psychiatric disorder. 6. History of hypertension, currently hypotensive but stable. RECOMMENDATIONS: Continue with the ICU care. Respiratory care management as per pulmonary. Nick tly, remains in sinus rhythm. We will monitor on telemetry. Electrolytes will be corrected as need ed. Antibiotics managed as per ID. Amiodarone will be continued for now. Aspirin will be continue d. Dictated By: BRENTON RIOS MD AV/ALYSON Conf#: [id number] DID#: [id number] CC: RAMY DOMINGUEZ DO;*EndCC*
[2016-10-01] MEDS: ATORVASTATIN 10 MG TAB PO SCH (21:00)
[2016-10-01] MEDS: MONTELUKAST 10 MG TAB PO SCH (21:00)
[2016-10-02] VITALS (73 sets, daily range): BP systolic 75–138; BP diastolic 58–95; PULSE 79–109; RESP 6–18
[2016-10-02] MEDS: FENTAnyl (DRIP) 1000 mcg/100mL 100 ML IV SCH ×3 (01:16→22:17)
[2016-10-02] MEDS: SOD CHLORIDE 0.9% 1,000 ML IV SCH (01:37)
[2016-10-02] MEDS: ALBUTEROL 18 GM INHALER INH PRN ×5 (01:49→21:34)
[2016-10-02] MEDS: MIDAZOLAM (DRIP) 50 mg/50 mL 50 ML IV SCH ×3 (05:09→19:21)
[2016-10-02] MEDS: AL HYDROX/MG HYDROX/SIMETH 30 ML CUP PO SCH ×4 (05:09→23:03)
[2016-10-02] MEDS: MEROPENEM 500 MG/100 ML (PMX) 100 ML IVPB SCH ×3 (05:14→22:17)
[2016-10-02 06:09] LABS: ADD SCAN DIFF NO
[2016-10-02 06:21] LABS: BASOPHILS % 0.1 % (0.0-2.0); EOSINOPHILS # 0.8 10^3/ul (0.0-0.5); EOSINOPHILS % 4.8 % (0.0-7.0); HEMATOCRIT 33.9 % (42.0-52.0); HEMOGLOBIN 10.2 g/dl (14.0-18.0); LYMPHOCYTES # 1.8 10^3/ul (0.8-2.9); LYMPHOCYTES % 11.3 % (15.0-51.0); MEAN CORPUSCULAR HEMOGLOBIN 30.8 pg (29.0-33.0); MEAN CORPUSCULAR HGB CONC 30.1 g/dl (32.0-37.0); MEAN CORPUSCULAR VOLUME 102.4 fl (82.0-101.0); MEAN PLATELET VOLUME 9.8 fl (7.4-10.4); MONOCYTE # 1.3 10^3/ul (0.3-0.9); MONOCYTES % 8.1 % (0.0-11.0); NEUTROPHIL # 11.9 10^3/ul (1.6-7.5); NEUTROPHILS % 74.6 % (39.0-77.0); PLATELET COUNT 182 10^3/UL (140-415); RED BLOOD COUNT 3.31 10^6/ul (4.70-6.10); RED CELL DISTRIBUTION WIDTH 14.1 % (11.5-14.5); WHITE BLOOD COUNT 15.9 10^3/ul (4.8-10.8)
[2016-10-02 06:33] LABS: POTASSIUM 3.9 mmol/L (3.5-5.1)
[2016-10-02 06:36] LABS: CREATININE 0.69 mg/dl (0.61-1.24)
[2016-10-02 06:37] LABS: MAGNESIUM 2.3 mg/dl (1.7-2.5); PHOSPHORUS 3.5 mg/dl (2.5-4.9)
--- NOTE | 2016-10-02 08:13 | CONS ---
Date/Time of Note Date/Time of Note DATE: 10/02/16 TIME: 08:11 Assessment/Plan Assessment/Plan Additional Assessment/Plan Ventilator settings; AC of 16, tidal volume 500, PEEP of 5, 35% FiO2. Patient currently on fentanyl 100 mics per hour, Versed 10 mg/h. Assessment recommendations; 1. Patient admitted for hypercapnic respiratory failure requiring intubation. 2. Underlying morbid obesity with likely underlying severe sleep apnea. 3. Chronic Respiratory failure. 4. Right-sided pneumonia with interval improvement. 5. History of paroxysmal atrial fibrillation patient currently in sinus rhythm 6. History of hypertension and bipolar disorder. Hold sedation now, the patient is off sedative effect he will be evaluated for possible weaning from ventilator. Continue current supportive care. Consultation Date/Type/Reason Admit Date/Time Sep 29, 2016 at 09:25 Type of Consultation: Pulmonary/critical care 24 HR Interval Summary Free Text/Dictation Patient condition remains critical. Remains intubated. Has remained hemodynamically stable. General exam; middle-aged male, morbidly obese, orally intubated and sedated. Currently in no distress. Exam/Review of Systems Vital Signs Vitals Vital Signs Date Time Temp Pulse Resp B/P Pulse Ox O2 Delivery O2 Flow Rate FiO2 10/02/16 06:30 88 16 112/66 96 Mechanical Ventilator 10/02/16 05:40 35 10/02/16 04:00 99.4 Intake and Output 10/01/16 10/01/16 10/02/16 15:00 23:00 07:00 Intake Total 1210 ml 210 ml 210 ml Output Total 390 ml 360 ml 350 ml Balance 820 ml -150 ml -140 ml Exam HEENT exam is; supple neck, JVD difficult to see because of short neck. Orally intubated. No neck masses. Pupils are small bilaterally. Patient has fair dentition. No thyromegaly. No neck bruits. Chest exam is; diminished but clear breath sounds. S1-S2 audible, no murmurs. Regular rhythm. Abdomen examination; soft, no organomegaly bowel sounds audible. Extremity exam; no peripheral edema. Pulses 1+ bilaterally. 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 Results Result Diagram: 10/02/16 0540 10/02/16 0540 Results 24 hrs Laboratory Tests Test 10/01/16 09:00 10/02/16 05:40 Blood Gas Specimen Source Blood arterial Arterial Blood Date Drawn 10/01/2016 8:55:28 AM Arterial Blood pH (Temp corrected) 7.403 Arterial Blood pCO2 (Temp correct) 60.7 H Arterial Blood pO2 (Temp corrected) 103.8 H Arterial Blood HCO3 37.0 H Arterial Blood Base Excess 10.4 H Arterial Blood Oxygen Saturation 97.4 Elijah Test ACCEPTAB Arterial Blood Gas Puncture Site Right Radial Arterial Blood Carboxyhemoglobin 0.3 Arterial Blood Methemoglobin 0.2 Blood Gas A-a O2 Differential 111.6 H Oxyhemoglobin Percent 96.9 Total Hemoglobin 11.0 L Blood Gas Temperature 37.0 Blood Gas Respiration Rate 16.0 Blood Gas Actual Respiration Rate 16 Blood Gas Modality VENT - AC FiO2 40.0 Blood Gas Tidal Volume 500.0 Blood Gas Low PEEP Setting 5.0 Blood Gas Notified Whom JLD Blood Gas Notified Time 10/01/2016 9:05:03 AM White Blood Count 15.9 H Red Blood Count 3.31 L Hemoglobin 10.2 L Hematocrit 33.9 L Mean Corpuscular Volume 102.4 H Mean Corpuscular Hemoglobin 30.8 Mean Corpuscular Hemoglobin Concent 30.1 L Red Cell Distribution Width 14.1 Platelet Count 182 Mean Platelet Volume 9.8 Neutrophils % 74.6 Lymphocytes % 11.3 L Monocytes % 8.1 Eosinophils % 4.8 Basophils % 0.1 Nucleated Red Blood Cells % 0.0 Neutrophils # 11.9 H Lymphocytes # 1.8 Monocytes # 1.3 H Eosinophils # 0.8 H Basophils # 0.0 Nucleated Red Blood Cells # 0.0 Sodium Level 139 Potassium Level 3.9 Chloride Level 97 Carbon Dioxide Level 33 H Anion Gap 13 # Blood Urea Nitrogen 21 H Creatinine 0.69 Glucose Level 91 Calcium Level 8.0 L Phosphorus Level 3.5 Magnesium Level 2.3 Medications Medications Current Medications Acetaminophen (Tylenol Tab) 650 mg Q4H PRN PO MILD PAIN LEVEL 1-3 Last administered on 10/01/16 07:58; Admin Dose 650 MG; Start 09/29/16 at 11:00 Acetaminophen (Tylenol Tab) 1,000 mg Q4H PRN PO PAIN LEVEL 4-6/10; Start at 11:00 Amiodarone HCl (Cordarone) 200 mg DAILY PO Last administered on 10/01/16 07:58 ; Admin Dose 200 MG; Start 09/30/16 at 09:00 Ascorbic Acid (Vitamin C) 500 mg DAILY PO Last administered on 10/01/16 07:59 ; Admin Dose 500 MG; Start 09/30/16 at 09:00 Aspirin (Aspirin) 81 mg DAILY PO Last administered on 10/01/16 07:59; Admin Dose 81 MG; Start 09/30/16 at 09:00 Atorvastatin Calcium (Lipitor) 5 mg QHS PO Last administered on 10/01/16 21:00 ; Admin Dose 5 MG; Start 09/29/16 at 21:00 Bisacodyl (Dulcolax Supp) 10 mg DAILY PRN [place] CONSTIPATION; Start 09/29/16 at 11 :00 Docusate Sodium (Colace) 200 mg QHS PRN PO CONSTIPATION; Start 09/29/16 at 11: 00 Loratadine (Claritin) 10 mg DAILY PO Last administered on 10/01/16 07:59; Admin Dose 10 MG; Start 09/30/16 at 09:00 Al Hydrox/Mg Hydrox/Simethicone (Mag-Al Plus) 30 ml Q6H PO Last administered on 10/02/16 05:09; Admin Dose 30 ML; Start 09/29/16 at 11:00 Magnesium Hydroxide (Milk Of Mag) 30 ml DAILY PRN PO CONSTIPATION; Start at 11:00 Metoprolol Tartrate (Lopressor) 25 mg BID PO Last administered on 10/01/16 21: 00; Admin Dose 25 MG; Start 09/29/16 at 21:00 Montelukast Sodium (Singulair) 10 mg QHS PO Last administered on 10/01/16 21: 00; Admin Dose 10 MG; Start 09/29/16 at 21:00 Multivitamins Therapeutic (Theragran) 1 tab DAILY PO Last administered on 07:58; Admin Dose 1 TAB; Start 09/30/16 at 09:00 Sodium Biphosphate/ Sodium Phosphate (Fleet Enema) 118 ml prn PRN [place] CONSTIPATION; Start 09/29/16 at 11:00 Eye Lubricant (Artificial Tears Oph) 1 drop TID BOTH EYES Last administered on 10/01/16 21:03; Admin Dose 1 DROP; Start 09/29/16 at 13:00 Lactobacillus Acidophilus 1 each 1 each BID PO Last administered on 10/01/16 08:00; Admin Dose 1 EACH; Start 09/29/16 at 21:00 Meropenem 100 ml @ 200 mls/hr Q8 IVPB Last administered on 10/02/16 05:14; Admin Dose 200 MLS/HR; Start 09/30/16 at 06:00 Linezolid 300 ml @ 300 mls/hr Q12 IVPB Last administered on 10/01/16 21:01; Admin Dose 300 MLS/HR; Start 09/29/16 at 23:30 Fentanyl 100 ml @ 2.5 mls/hr TITRATE IV Last administered on 10/02/16 01:16; Admin Dose 10 MLS/HR; Start 09/30/16 at 07:00 Midazolam HCl 50 ml @ 1 mls/hr TITRATE IV Last administered on 10/02/16 05:09 ; Admin Dose 10 MLS/HR; Start 09/30/16 at 07:00 Sodium Chloride (NS) 1,000 ml @ 50 mls/hr Q20H IV Last administered on 01:37; Admin Dose 50 MLS/HR; Start 09/30/16 at 08:30 Enoxaparin Sodium 40 mg 40 mg DAILY SC Last administered on 10/01/16 08:33; Admin Dose 40 MG; Start 09/30/16 at 09:00 Levofloxacin/ Dextrose (Levaquin 750 Mg/ D5W 150 ml (Pmx)) 150 ml @ 100 mls/hr Q24H IVPB Last administered on 10/01/16 08:32; Admin Dose 100 MLS/HR; Start at 09:30 Lansoprazole (Prevacid) 30 mg BID NGT Last administered on 10/01/16 20:59; Admin Dose 30 MG; Start 09/30/16 at 21:00 SHARON LLAMAS Oct 02, 2016 08:13
--- NOTE | 2016-10-02 08:24 | PN ---
Date/Time of Note Date/Time of Note DATE: 10/02/16 TIME: 08:22 Assessment/Plan VTE Prophylaxis VTE Prophylaxis Intervention: SCD's Lines/Catheters IV Catheter Type (from Nrs): Peripheral IV Urinary Cath still in place: Yes Reason Cath still needed: urinary retention Assessment/Plan Assessment/Plan 1. Hypoxemic and hypercapnic respiratory failure, status post intubation on the vent. 2. Chronic obstructive pulmonary disease exacerbation, possible pneumonia. 3. Status post sepsis and shock, currently blood pressure is improved. 4. History of paroxysmal atrial fibrillation, currently in sinus rhythm. 5. History of psychiatric disorder. 6. History of hypertension, currently hypotensive but stable. RECOMMENDATIONS -Continue with the ICU care. Respiratory care management as per pulmonary -Currently, remains in sinus rhythm. We will monitor on telemetry. Electrolytes will be corrected as needed. -Antibiotics managed as per ID. -Amiodarone will be continued for now. Aspirin will be continued. Subjective 24 Hr Interval Summary Free Text/Dictation The patient with no change Exam/Review of Systems Vital Signs Vitals Vital Signs Date Time Temp Pulse Resp B/P Pulse Ox O2 Delivery O2 Flow Rate FiO2 10/02/16 06:30 88 16 112/66 96 Mechanical Ventilator 10/02/16 05:40 35 10/02/16 04:00 99.4 Intake and Output 10/01/16 10/01/16 10/02/16 15:00 23:00 07:00 Intake Total 1210 ml 960 ml 870 ml Output Total 390 ml 360 ml 350 ml Balance 820 ml 600 ml 520 ml Results Result Diagram: 10/02/16 0540 10/02/16 0540 Results 24 hrs Laboratory Tests Test 10/01/16 09:00 10/02/16 05:40 Blood Gas Specimen Source Blood arterial Arterial Blood Date Drawn 10/01/2016 8:55:28 AM Arterial Blood pH (Temp corrected) 7.403 Arterial Blood pCO2 (Temp correct) 60.7 H Arterial Blood pO2 (Temp corrected) 103.8 H Arterial Blood HCO3 37.0 H Arterial Blood Base Excess 10.4 H Arterial Blood Oxygen Saturation 97.4 Elijah Test ACCEPTAB Arterial Blood Gas Puncture Site Right Radial Arterial Blood Carboxyhemoglobin 0.3 Arterial Blood Methemoglobin 0.2 Blood Gas A-a O2 Differential 111.6 H Oxyhemoglobin Percent 96.9 Total Hemoglobin 11.0 L Blood Gas Temperature 37.0 Blood Gas Respiration Rate 16.0 Blood Gas Actual Respiration Rate 16 Blood Gas Modality VENT - AC FiO2 40.0 Blood Gas Tidal Volume 500.0 Blood Gas Low PEEP Setting 5.0 Blood Gas Notified Whom JLD Blood Gas Notified Time 10/01/2016 9:05:03 AM White Blood Count 15.9 H Red Blood Count 3.31 L Hemoglobin 10.2 L Hematocrit 33.9 L Mean Corpuscular Volume 102.4 H Mean Corpuscular Hemoglobin 30.8 Mean Corpuscular Hemoglobin Concent 30.1 L Red Cell Distribution Width 14.1 Platelet Count 182 Mean Platelet Volume 9.8 Neutrophils % 74.6 Lymphocytes % 11.3 L Monocytes % 8.1 Eosinophils % 4.8 Basophils % 0.1 Nucleated Red Blood Cells % 0.0 Neutrophils # 11.9 H Lymphocytes # 1.8 Monocytes # 1.3 H Eosinophils # 0.8 H Basophils # 0.0 Nucleated Red Blood Cells # 0.0 Sodium Level 139 Potassium Level 3.9 Chloride Level 97 Carbon Dioxide Level 33 H Anion Gap 13 # Blood Urea Nitrogen 21 H Creatinine 0.69 Glucose Level 91 Calcium Level 8.0 L Phosphorus Level 3.5 Magnesium Level 2.3 Medications Medications Current Medications Acetaminophen (Tylenol Tab) 650 mg Q4H PRN PO MILD PAIN LEVEL 1-3 Last administered on 10/01/16 07:58; Admin Dose 650 MG; Start 09/29/16 at 11:00 Acetaminophen (Tylenol Tab) 1,000 mg Q4H PRN PO PAIN LEVEL 4-6/10; Start at 11:00 Amiodarone HCl (Cordarone) 200 mg DAILY PO Last administered on 10/01/16 07:58 ; Admin Dose 200 MG; Start 09/30/16 at 09:00 Ascorbic Acid (Vitamin C) 500 mg DAILY PO Last administered on 10/01/16 07:59 ; Admin Dose 500 MG; Start 09/30/16 at 09:00 Aspirin (Aspirin) 81 mg DAILY PO Last administered on 10/01/16 07:59; Admin Dose 81 MG; Start 09/30/16 at 09:00 Atorvastatin Calcium (Lipitor) 5 mg QHS PO Last administered on 10/01/16 21:00 ; Admin Dose 5 MG; Start 09/29/16 at 21:00 Bisacodyl (Dulcolax Supp) 10 mg DAILY PRN [place] CONSTIPATION; Start 09/29/16 at 11 :00 Docusate Sodium (Colace) 200 mg QHS PRN PO CONSTIPATION; Start 09/29/16 at 11: 00 Loratadine (Claritin) 10 mg DAILY PO Last administered on 10/01/16 07:59; Admin Dose 10 MG; Start 09/30/16 at 09:00 Al Hydrox/Mg Hydrox/Simethicone (Mag-Al Plus) 30 ml Q6H PO Last administered on 10/02/16 05:09; Admin Dose 30 ML; Start 09/29/16 at 11:00 Magnesium Hydroxide (Milk Of Mag) 30 ml DAILY PRN PO CONSTIPATION; Start at 11:00 Metoprolol Tartrate (Lopressor) 25 mg BID PO Last administered on 10/01/16 21: 00; Admin Dose 25 MG; Start 09/29/16 at 21:00 Montelukast Sodium (Singulair) 10 mg QHS PO Last administered on 10/01/16 21: 00; Admin Dose 10 MG; Start 09/29/16 at 21:00 Multivitamins Therapeutic (Theragran) 1 tab DAILY PO Last administered on 07:58; Admin Dose 1 TAB; Start 09/30/16 at 09:00 Sodium Biphosphate/ Sodium Phosphate (Fleet Enema) 118 ml prn PRN [place] CONSTIPATION; Start 09/29/16 at 11:00 Eye Lubricant (Artificial Tears Oph) 1 drop TID BOTH EYES Last administered on 10/01/16 21:03; Admin Dose 1 DROP; Start 09/29/16 at 13:00 Lactobacillus Acidophilus 1 each 1 each BID PO Last administered on 10/01/16 08:00; Admin Dose 1 EACH; Start 09/29/16 at 21:00 Meropenem 100 ml @ 200 mls/hr Q8 IVPB Last administered on 10/02/16 05:14; Admin Dose 200 MLS/HR; Start 09/30/16 at 06:00 Linezolid 300 ml @ 300 mls/hr Q12 IVPB Last administered on 10/01/16 21:01; Admin Dose 300 MLS/HR; Start 09/29/16 at 23:30 Fentanyl 100 ml @ 2.5 mls/hr TITRATE IV Last administered on 10/02/16 01:16; Admin Dose 10 MLS/HR; Start 09/30/16 at 07:00 Midazolam HCl 50 ml @ 1 mls/hr TITRATE IV Last administered on 10/02/16 05:09 ; Admin Dose 10 MLS/HR; Start 09/30/16 at 07:00 Sodium Chloride (NS) 1,000 ml @ 50 mls/hr Q20H IV Last administered on 01:37; Admin Dose 50 MLS/HR; Start 09/30/16 at 08:30 Enoxaparin Sodium 40 mg 40 mg DAILY SC Last administered on 10/01/16 08:33; Admin Dose 40 MG; Start 09/30/16 at 09:00 Levofloxacin/ Dextrose (Levaquin 750 Mg/ D5W 150 ml (Pmx)) 150 ml @ 100 mls/hr Q24H IVPB Last administered on 10/01/16 08:32; Admin Dose 100 MLS/HR; Start at 09:30 Lansoprazole (Prevacid) 30 mg BID NGT Last administered on 10/01/16 20:59; Admin Dose 30 MG; Start 09/30/16 at 21:00 DAYLIN BECKFORD MD Oct 02, 2016 08:24
[2016-10-02] MEDS: LANSOPRAZOLE 30 MG CAP NGT SCH ×2 (08:55→21:01)
[2016-10-02] MEDS: ASPIRIN 81 MG TAB PO SCH (08:55)
[2016-10-02] MEDS: ASCORBIC ACID 500 MG TAB PO SCH (08:56)
[2016-10-02] MEDS: MULTIVITAMINS THERAPEUTIC TAB PO SCH (08:56)
[2016-10-02] MEDS: AMIODARONE 200 MG TAB PO SCH (08:56)
[2016-10-02] MEDS: LORATADINE 10 MG TAB PO SCH (08:56)
[2016-10-02] MEDS: METOPROLOL 25 MG TAB PO SCH ×2 (08:56→21:00)
[2016-10-02] MEDS: ARTIFICIAL TEARS 15 ML OPH BOTH EYES SCH ×3 (08:57→21:01)
[2016-10-02] MEDS: ENOXAPARIN 40 MG/0.4 ML SYG SC SCH (08:58)
[2016-10-02] MEDS ORDERED: VASOPRESSIN 60 UNIT in DEXTROSE 5% 57 ML IV SCH (09:00)
[2016-10-02] MEDS: LINEZOLID 600 MG/D5W (PMX) 300 ML IVPB SCH ×2 (09:18→21:01)
[2016-10-02] MEDS: L ACIDOPHIL/B LACTIS/B LONGUM CAPSULE PO SCH ×2 (09:18→23:30)
--- NOTE | 2016-10-02 10:30 | PN ---
Date/Time of Note Date/Time of Note DATE: 10/02/16 TIME: 10:27 Assessment/Plan VTE Prophylaxis VTE Prophylaxis Intervention: other Lines/Catheters IV Catheter Type (from Nrs): Peripheral IV Urinary Cath still in place: Yes Reason Cath still needed: urinary retention Assessment/Plan Assessment/Plan 1. Ventilator-dependent respiratory failure. The etiology is felt to be secondary to COPD exacerbation, possible pneumonia. The patient is currently vent dependent. ABG has been reviewed. Chest x-ray has been reviewed. Plan is to continue the current treatment plan, continue IV antibiotics, nebulizers, continue Solu-Medrol. Will follow up with pulmonary to see if the patient is a weaning candidate at this time. 2. Sepsis secondary to pneumonia. The patient is clinically improving. Currently hemodynamically stable, not on pressors. Plan is to continue the current treatment plan, continue antibiotic therapy. Cultures have been reviewed and negative to date. Will follow up with ID for further recommendations. 3. Leukocytosis. Etiology is felt to be secondary to sepsis and underlying steroids. WBC has been slowly improving. Continue to monitor. 4. Acute encephalopathy. Etiology is secondary to hypercapnia. Continue to monitor. 5. Hyponatremia. The patient's sodium levels have been stable. Continue to monitor. 6. Anemia of chronic disease. The patient's iron panel was reviewed. No evidence of iron deficiency. Will continue to monitor H and H levels. 7. Respiratory acidosis, with metabolic compensation. Will continue to monitor. 8. History of paroxysmal atrial fibrillation. Currently in sinus rhythm. Continue amiodarone and metoprolol. 9. History of coronary artery disease. Continue medical management. 10. Bipolar disorder. Continue to monitor. 11. Hypertension. Blood pressure is currently normotensive. Continue to monitor. 12. Hyperphosphatemia. Improved. Continue to monitor. 13. Nutrition. Will consider starting the patient on tube feeding if patient is not weaned today. 14. Gastrointestinal and deep venous thrombosis prophylaxis. Continue Protonix and Lovenox. Please note, I spent over 42 minutes of critical care time with this patient. Subjective 24 Hr Interval Summary Free Text/Dictation SUBJECTIVE: The patient remained intubated overnight. No acute events. No hemoptysis, hematemesis or hematochezia. The patient remains currently on sedation medication and is arousable with stimuli. good uop no vomiting, new rash, hematuria, melena, fever, diaphoresis or melena vent settings were reviewed d/w Dr Pereira and ICU nurse meds, labs, imaging studies, nurses' care plans, previous orders and cardiac rhythm strips were reviewed OBJECTIVE: HEENT: Head is normocephalic. NECK: Supple. HEART: Regular rate. LUNGS: Showed diminished breath sounds at the base. ABDOMEN: Soft. No rebound or guarding. EXTREMITIES: Negative for clubbing or cyanosis. Trace edema. DERMATOLOGIC: No rashes. MUSCULOSKELETAL: Have no joint effusion. NEUROLOGIC: No change in exam. Exam/Review of Systems Vital Signs Vitals Vital Signs Date Time Temp Pulse Resp B/P Pulse Ox O2 Delivery O2 Flow Rate FiO2 10/02/16 06:30 88 16 112/66 96 Mechanical Ventilator 10/02/16 05:40 35 10/02/16 04:00 99.4 Intake and Output 10/01/16 10/01/16 10/02/16 15:00 23:00 07:00 Intake Total 1210 ml 960 ml 870 ml Output Total 390 ml 360 ml 350 ml Balance 820 ml 600 ml 520 ml Results Result Diagram: 10/02/16 0540 10/02/16 0540 Results 24 hrs Laboratory Tests Test 10/02/16 05:40 White Blood Count 15.9 H Red Blood Count 3.31 L Hemoglobin 10.2 L Hematocrit 33.9 L Mean Corpuscular Volume 102.4 H Mean Corpuscular Hemoglobin 30.8 Mean Corpuscular Hemoglobin Concent 30.1 L Red Cell Distribution Width 14.1 Platelet Count 182 Mean Platelet Volume 9.8 Neutrophils % 74.6 Lymphocytes % 11.3 L Monocytes % 8.1 Eosinophils % 4.8 Basophils % 0.1 Nucleated Red Blood Cells % 0.0 Neutrophils # 11.9 H Lymphocytes # 1.8 Monocytes # 1.3 H Eosinophils # 0.8 H Basophils # 0.0 Nucleated Red Blood Cells # 0.0 Sodium Level 139 Potassium Level 3.9 Chloride Level 97 Carbon Dioxide Level 33 H Anion Gap 13 # Blood Urea Nitrogen 21 H Creatinine 0.69 Glucose Level 91 Calcium Level 8.0 L Phosphorus Level 3.5 Magnesium Level 2.3 Medications Medications Current Medications Acetaminophen (Tylenol Tab) 650 mg Q4H PRN PO MILD PAIN LEVEL 1-3 Last administered on 10/01/16t 07:58; Admin Dose 650 MG; Start 09/29/16 at 11:00 Acetaminophen (Tylenol Tab) 1,000 mg Q4H PRN PO PAIN LEVEL 4-6/10; Start at 11:00 Amiodarone HCl (Cordarone) 200 mg DAILY PO Last administered on 10/02/16 08:56 ; Admin Dose 200 MG; Start 09/30/16 at 09:00 Ascorbic Acid (Vitamin C) 500 mg DAILY PO Last administered on 10/02/16 08:56 ; Admin Dose 500 MG; Start 09/30/16 at 09:00 Aspirin (Aspirin) 81 mg DAILY PO Last administered on 10/02/16 08:55; Admin Dose 81 MG; Start 09/30/16 at 09:00 Atorvastatin Calcium (Lipitor) 5 mg QHS PO Last administered on 10/01/16 21:00 ; Admin Dose 5 MG; Start 09/29/16 at 21:00 Bisacodyl (Dulcolax Supp) 10 mg DAILY PRN [place] CONSTIPATION; Start 09/29/16 at 11 :00 Docusate Sodium (Colace) 200 mg QHS PRN PO CONSTIPATION; Start 09/29/16 at 11: 00 Loratadine (Claritin) 10 mg DAILY PO Last administered on 10/02/16 08:56; Admin Dose 10 MG; Start 09/30/16 at 09:00 Al Hydrox/Mg Hydrox/Simethicone (Mag-Al Plus) 30 ml Q6H PO Last administered on 10/02/16 05:09; Admin Dose 30 ML; Start 09/29/16 at 11:00 Magnesium Hydroxide (Milk Of Mag) 30 ml DAILY PRN PO CONSTIPATION; Start at 11:00 Metoprolol Tartrate (Lopressor) 25 mg BID PO Last administered on 10/02/16 08: 56; Admin Dose 25 MG; Start 09/29/16 at 21:00 Montelukast Sodium (Singulair) 10 mg QHS PO Last administered on 10/01/16 21: 00; Admin Dose 10 MG; Start 09/29/16 at 21:00 Multivitamins Therapeutic (Theragran) 1 tab DAILY PO Last administered on 08:56; Admin Dose 1 TAB; Start 09/30/16 at 09:00 Sodium Biphosphate/ Sodium Phosphate (Fleet Enema) 118 ml prn PRN [place] CONSTIPATION; Start 09/29/16 at 11:00 Eye Lubricant (Artificial Tears Oph) 1 drop TID BOTH EYES Last administered on 10/02/16 08:57; Admin Dose 1 DROP; Start 09/29/16 at 13:00 Lactobacillus Acidophilus 1 each 1 each BID PO Last administered on 10/02/16 09:18; Admin Dose 1 EACH; Start 09/29/16 at 21:00 Meropenem 100 ml @ 200 mls/hr Q8 IVPB Last administered on 10/02/16 05:14; Admin Dose 200 MLS/HR; Start 09/30/16 at 06:00 Linezolid 300 ml @ 300 mls/hr Q12 IVPB Last administered on 10/02/16 09:18; Admin Dose 300 MLS/HR; Start 09/29/16 at 23:30 Fentanyl 100 ml @ 2.5 mls/hr TITRATE IV Last administered on 10/02/16 01:16; Admin Dose 10 MLS/HR; Start 09/30/16 at 07:00 Midazolam HCl 50 ml @ 1 mls/hr TITRATE IV Last administered on 10/02/16 05:09 ; Admin Dose 10 MLS/HR; Start 09/30/16 at 07:00 Sodium Chloride (NS) 1,000 ml @ 50 mls/hr Q20H IV Last administered on 01:37; Admin Dose 50 MLS/HR; Start 09/30/16 at 08:30 Enoxaparin Sodium 40 mg 40 mg DAILY SC Last administered on 10/02/16 08:58; Admin Dose 40 MG; Start 09/30/16 at 09:00 Levofloxacin/ Dextrose (Levaquin 750 Mg/ D5W 150 ml (Pmx)) 150 ml @ 100 mls/hr Q24H IVPB Last administered on 10/01/16 08:32; Admin Dose 100 MLS/HR; Start at 09:30 Lansoprazole (Prevacid) 30 mg BID NGT Last administered on 10/02/16 08:55; Admin Dose 30 MG; Start 09/30/16 at 21:00 DAMON BOSWELL DO Oct 02, 2016 10:29
[2016-10-02] MEDS: LEVOFLOXACIN 750MG/D5W (PMX) 150 ML IVPB SCH (13:29)
[2016-10-02] MEDS: MONTELUKAST 10 MG TAB PO SCH (21:01)
[2016-10-02] MEDS: ATORVASTATIN 10 MG TAB PO SCH (21:08)
[2016-10-03] VITALS (60 sets, daily range): BP systolic 86–126; BP diastolic 58–92; PULSE 79–107; RESP 12–16
[2016-10-03] MEDS: MIDAZOLAM (DRIP) 50 mg/50 mL 50 ML IV SCH ×5 (00:49→21:19)
--- NOTE | 2016-10-03 04:52 | PN ---
DATE: 10/02/2016 SUBJECTIVE: No acute events overnight. The patient is lying comfortably in bed, intubated, sedated . No fevers. VITAL SIGNS: Temperature 99.1 with a T-max of 99.5, pulse 85, respiration 16, blood pressure 92/64, saturation 94 on FIO2 of 35. MICROBIOLOGY: Sputum cultures pending. INDWELLINGS: Trache, PEG, Estrella. ANTIMICROBIALS: 1. Zyvox. 2. Levaquin. 3. Meropenem. ALLERGIES: VANCOMYCIN. PHYSICAL EXAMINATION: GENERAL: Morbidly obese, well-developed, middle-aged white man who is lying comfortably in bed. HEENT: Head atraumatic, normocephalic. Sclerae are anicteric. Buccal mucosa dry. NECK: Obese. CHEST: Rise symmetrical. Breath sounds diminished to bases. HEART: S1, S2. ABDOMEN: Soft. Bowel sounds hypoactive. EXTREMITIES: Bilateral edema. ASSESSMENT: 1. Sepsis with acute respiratory failure. 2. Healthcare-associated pneumonia, possibly aspiration. 3. Chronic obstructive pulmonary disease exacerbation. 4. ALLERGY TO VANCOMYCIN. 5. History of paroxysmal atrial fibrillation 6. Psychiatric disease. PLAN: The patient remains unchanged, covered with broad spectrum antibiotics. Sputum culture is pe nding. He is being followed by multiple consultants. Continue vent management as per pulmonary. Dictated By: NANCY MOREL LEG MAN for ARVIN VERDUZCO/ALYSON Conf#: [id number] DID#: [id number] CC: RAMY DOMINGUEZ DO;*EndCC*
[2016-10-03 05:23] LABS: ADD SCAN DIFF NO
[2016-10-03 05:48] LABS: BASOPHILS % 0.1 % (0.0-2.0); EOSINOPHILS # 0.6 10^3/ul (0.0-0.5); EOSINOPHILS % 4.3 % (0.0-7.0); HEMOGLOBIN 10.2 g/dl (14.0-18.0); LYMPHOCYTES # 1.9 10^3/ul (0.8-2.9); LYMPHOCYTES % 12.6 % (15.0-51.0); MEAN CORPUSCULAR HEMOGLOBIN 30.8 pg (29.0-33.0); MEAN CORPUSCULAR VOLUME 102.7 fl (82.0-101.0); MEAN PLATELET VOLUME 9.9 fl (7.4-10.4); MONOCYTE # 1.4 10^3/ul (0.3-0.9); MONOCYTES % 9.5 % (0.0-11.0); NEUTROPHIL # 10.7 10^3/ul (1.6-7.5); NEUTROPHILS % 72.6 % (39.0-77.0); PLATELET COUNT 183 10^3/UL (140-415); RED BLOOD COUNT 3.31 10^6/ul (4.70-6.10); RED CELL DISTRIBUTION WIDTH 13.9 % (11.5-14.5); WHITE BLOOD COUNT 14.8 10^3/ul (4.8-10.8)
[2016-10-03 05:52] LABS: ALBUMIN 2.8 g/dl (3.3-4.9)
[2016-10-03 05:53] LABS: POTASSIUM 4.2 mmol/L (3.5-5.1)
[2016-10-03 05:55] LABS: BILIRUBIN,INDIRECT 0.1 mg/dl (0-1.1); BILIRUBIN,TOTAL 0.1 mg/dl (0.2-1.3); CREATININE 0.72 mg/dl (0.61-1.24)
[2016-10-03 05:56] LABS: ALBUMIN/GLOBULIN RATIO 0.84; CALCIUM 7.9 mg/dl (8.4-10.2); TOTAL PROTEIN 6.1 g/dl (6.1-8.1)
[2016-10-03] MEDS: MEROPENEM 500 MG/100 ML (PMX) 100 ML IVPB SCH ×3 (05:57→21:33)
[2016-10-03] MEDS: AL HYDROX/MG HYDROX/SIMETH 30 ML CUP PO SCH ×4 (05:57→22:57)
[2016-10-03 06:17] LABS: AADO2 Arterial 94.5 mmHg (7.0-24.0); Allen Test ACCEPTAB; Arterial Base Excess 5.8 mmol/L (-3.0-3); Arterial COHb 0.9 % (0.0-3.0); Arterial Fraction of Oxyhgb 91.6 % (93.0-99.0); Arterial HCO3 34.5 mmol/L (22.0-26.0); Arterial MetHb 0.2 % (0.0-1.5); MODE VENT - AC
[2016-10-03] MEDS: FENTAnyl (DRIP) 1000 mcg/100mL 100 ML IV SCH ×2 (08:44→18:05)
[2016-10-03] MEDS: METOPROLOL 25 MG TAB PO SCH ×2 (09:00→21:00)
[2016-10-03] MEDS: LINEZOLID 600 MG/D5W (PMX) 300 ML IVPB SCH ×2 (09:24→21:11)
[2016-10-03] MEDS: LANSOPRAZOLE 30 MG CAP NGT SCH ×2 (09:35→21:09)
[2016-10-03] MEDS: ARTIFICIAL TEARS 15 ML OPH BOTH EYES SCH ×3 (09:35→21:29)
[2016-10-03] MEDS: LORATADINE 10 MG TAB PO SCH (09:36)
[2016-10-03] MEDS: MULTIVITAMINS THERAPEUTIC TAB PO SCH (09:36)
[2016-10-03] MEDS: ASCORBIC ACID 500 MG TAB PO SCH (09:36)
[2016-10-03] MEDS: AMIODARONE 200 MG TAB PO SCH (09:36)
[2016-10-03] MEDS: ASPIRIN 81 MG TAB PO SCH (09:36)
[2016-10-03] MEDS: L ACIDOPHIL/B LACTIS/B LONGUM CAPSULE PO SCH ×2 (09:36→21:29)
[2016-10-03] MEDS: ENOXAPARIN 40 MG/0.4 ML SYG SC SCH (09:37)
--- NOTE | 2016-10-03 10:16 | PN ---
Date/Time of Note Date/Time of Note DATE: 10/03/16 TIME: 10:15 Assessment/Plan VTE Prophylaxis VTE Prophylaxis Intervention: other Lines/Catheters IV Catheter Type (from Nrs): Peripheral IV Urinary Cath still in place: Yes Reason Cath still needed: urinary retention Assessment/Plan Assessment/Plan 1. Ventilator-dependent respiratory failure. The etiology is felt to be secondary to COPD exacerbation, possible pneumonia. The patient is currently vent dependent. ABG has been reviewed. Chest x-ray has been reviewed. Plan is to continue the current treatment plan, continue IV antibiotics, nebulizers, continue Solu-Medrol. Will follow up with pulmonary to see if the patient is a weaning candidate at this time. 2. Sepsis secondary to pneumonia. The patient is clinically improving. Currently hemodynamically stable, not on pressors. Plan is to continue the current treatment plan, continue antibiotic therapy. Cultures have been reviewed and negative to date. Will follow up with ID for further recommendations. 3. Leukocytosis. Etiology is felt to be secondary to sepsis and underlying steroids. WBC has been slowly improving. Continue to monitor. 4. Acute encephalopathy. Etiology is secondary to hypercapnia. Continue to monitor. 5. Hyponatremia. The patient's sodium levels have been stable. Continue to monitor. 6. Anemia of chronic disease. The patient's iron panel was reviewed. No evidence of iron deficiency. Will continue to monitor H and H levels. 7. Respiratory acidosis, with metabolic compensation. Will continue to monitor. 8. History of paroxysmal atrial fibrillation. Currently in sinus rhythm. Continue amiodarone and metoprolol. 9. History of coronary artery disease. Continue medical management. 10. Bipolar disorder. Continue to monitor. 11. Hypertension. Blood pressure is currently normotensive. Continue to monitor. 12. Hyperphosphatemia. Improved. Continue to monitor. 13. Nutrition. Will consider starting the patient on tube feeding if patient is not weaned today. 14. Gastrointestinal and deep venous thrombosis prophylaxis. Continue Protonix and Lovenox. Please note, I spent over 39 minutes of critical care time with this patient. Subjective 24 Hr Interval Summary Free Text/Dictation SUBJECTIVE: The patient remained intubated overnight. No acute events. No hemoptysis, hematemesis or hematochezia. The patient remains currently on sedation medication and is arousable with stimuli. good uop no vomiting, new rash, hematuria, melena, fever, diaphoresis or melena vent settings were reviewed d/w Dr Pereira and ICU nurse meds, labs, imaging studies, nurses' care plans, previous orders and cardiac rhythm strips were reviewed OBJECTIVE: HEENT: Head is normocephalic. NECK: Supple. HEART: Regular rate. LUNGS: Showed diminished breath sounds at the base. ABDOMEN: Soft. No rebound or guarding. EXTREMITIES: Negative for clubbing or cyanosis. Trace edema. DERMATOLOGIC: No rashes. MUSCULOSKELETAL: Have no joint effusion. NEUROLOGIC: No change in exam. Exam/Review of Systems Vital Signs Vitals Vital Signs Date Time Temp Pulse Resp B/P Pulse Ox O2 Delivery O2 Flow Rate FiO2 10/03/16 09:50 82 16 96 35 10/03/16 08:30 91/70 Mechanical Ventilator 10/03/16 08:00 99.3 Intake and Output 10/02/16 10/02/16 10/03/16 15:00 23:00 07:00 Intake Total 1140 ml 1360 ml 800 ml Output Total 420 ml 460 ml 400 ml Balance 720 ml 900 ml 400 ml Results Result Diagram: 10/03/16 0440 10/03/16 0440 Results 24 hrs Laboratory Tests Test 10/03/16 04:40 10/03/16 06:00 White Blood Count 14.8 H Red Blood Count 3.31 L Hemoglobin 10.2 L Hematocrit 34.0 L Mean Corpuscular Volume 102.7 H Mean Corpuscular Hemoglobin 30.8 Mean Corpuscular Hemoglobin Concent 30.0 L Red Cell Distribution Width 13.9 Platelet Count 183 Mean Platelet Volume 9.9 Neutrophils % 72.6 Lymphocytes % 12.6 L Monocytes % 9.5 Eosinophils % 4.3 Basophils % 0.1 Nucleated Red Blood Cells % 0.0 Neutrophils # 10.7 H Lymphocytes # 1.9 Monocytes # 1.4 H Eosinophils # 0.6 H Basophils # 0.0 Nucleated Red Blood Cells # 0.0 Sodium Level 140 Potassium Level 4.2 Chloride Level 97 Carbon Dioxide Level 34 H Anion Gap 13 Blood Urea Nitrogen 18 Creatinine 0.72 Glucose Level 88 Calcium Level 7.9 L Total Bilirubin 0.1 L Direct Bilirubin 0.00 Indirect Bilirubin 0.1 Aspartate Amino Transf (AST/SGOT) 25 Alanine Aminotransferase (ALT/SGPT) 36 Alkaline Phosphatase 69 Total Protein 6.1 Albumin 2.8 L Globulin 3.30 H Albumin/Globulin Ratio 0.84 Blood Gas Specimen Source Blood arterial Arterial Blood Date Drawn 10/03/2016 5:45:28 AM Arterial Blood pH (Temp corrected) 7.308 L Arterial Blood pCO2 (Temp correct) 70.5 H Arterial Blood pO2 (Temp corrected) 73.1 L Arterial Blood HCO3 34.5 H Arterial Blood Base Excess 5.8 H Arterial Blood Oxygen Saturation 92.6 L Elijah Test ACCEPTAB Arterial Blood Gas Puncture Site Left Radial Arterial Blood Carboxyhemoglobin 0.9 Arterial Blood Methemoglobin 0.2 Blood Gas A-a O2 Differential 94.5 H Oxyhemoglobin Percent 91.6 L Total Hemoglobin 14.0 Blood Gas Temperature 37.0 Blood Gas Respiration Rate 16.0 Blood Gas Actual Respiration Rate 16 Blood Gas Modality VENT - AC FiO2 35.0 Blood Gas Tidal Volume 500.0 Blood Gas Low PEEP Setting 5.0 Blood Gas Inspiratory Pressure 5.0 Blood Gas Notified Whom RTR Blood Gas Notified Time 10/03/2016 6:17:33 AM Medications Medications Current Medications Acetaminophen (Tylenol Tab) 650 mg Q4H PRN PO MILD PAIN LEVEL 1-3 Last administered on 10/01/16 07:58; Admin Dose 650 MG; Start 09/29/16 at 11:00 Acetaminophen (Tylenol Tab) 1,000 mg Q4H PRN PO PAIN LEVEL 4-6/10; Start at 11:00 Amiodarone HCl (Cordarone) 200 mg DAILY PO Last administered on 10/03/16 09:36 ; Admin Dose 200 MG; Start 09/30/16 at 09:00 Ascorbic Acid (Vitamin C) 500 mg DAILY PO Last administered on 10/03/16 09:36 ; Admin Dose 500 MG; Start 09/30/16 at 09:00 Aspirin (Aspirin) 81 mg DAILY PO Last administered on 10/03/16 09:36; Admin Dose 81 MG; Start 09/30/16 at 09:00 Atorvastatin Calcium (Lipitor) 5 mg QHS PO Last administered on 10/02/16 21:08 ; Admin Dose 5 MG; Start 09/29/16 at 21:00 Bisacodyl (Dulcolax Supp) 10 mg DAILY PRN [place] CONSTIPATION; Start 09/29/16 at 11 :00 Docusate Sodium (Colace) 200 mg QHS PRN PO CONSTIPATION; Start 09/29/16 at 11: 00 Loratadine (Claritin) 10 mg DAILY PO Last administered on 10/03/16 09:36; Admin Dose 10 MG; Start 09/30/16 at 09:00 Al Hydrox/Mg Hydrox/Simethicone (Mag-Al Plus) 30 ml Q6H PO Last administered on 10/03/16 05:57; Admin Dose 30 ML; Start 09/29/16 at 11:00 Magnesium Hydroxide (Milk Of Mag) 30 ml DAILY PRN PO CONSTIPATION; Start at 11:00 Metoprolol Tartrate (Lopressor) 25 mg BID PO Last administered on 10/02/16 08: 56; Admin Dose 25 MG; Start 09/29/16 at 21:00 Montelukast Sodium (Singulair) 10 mg QHS PO Last administered on 10/02/16 21: 01; Admin Dose 10 MG; Start 09/29/16 at 21:00 Multivitamins Therapeutic (Theragran) 1 tab DAILY PO Last administered on 09:36; Admin Dose 1 TAB; Start 09/30/16 at 09:00 Sodium Biphosphate/ Sodium Phosphate (Fleet Enema) 118 ml prn PRN [place] CONSTIPATION; Start 09/29/16 at 11:00 Eye Lubricant (Artificial Tears Oph) 1 drop TID BOTH EYES Last administered on 10/03/16 09:35; Admin Dose 1 DROP; Start 09/29/16 at 13:00 Lactobacillus Acidophilus 1 each 1 each BID PO Last administered on 10/03/16 09:36; Admin Dose 1 EACH; Start 09/29/16 at 21:00 Meropenem 100 ml @ 200 mls/hr Q8 IVPB Last administered on 10/03/16 05:57; Admin Dose 200 MLS/HR; Start 09/30/16 at 06:00 Linezolid 300 ml @ 300 mls/hr Q12 IVPB Last administered on 10/03/16 09:24; Admin Dose 300 MLS/HR; Start 09/29/16 at 23:30 Fentanyl 100 ml @ 2.5 mls/hr TITRATE IV Last administered on 10/03/16 08:44; Admin Dose 10 MLS/HR; Start 09/30/16 at 07:00 Midazolam HCl 50 ml @ 1 mls/hr TITRATE IV Last administered on 10/03/16 06:01 ; Admin Dose 10 MLS/HR; Start 09/30/16 at 07:00 Sodium Chloride (NS) 1,000 ml @ 50 mls/hr Q20H IV Last administered on 01:37; Admin Dose 50 MLS/HR; Start 09/30/16 at 08:30 Enoxaparin Sodium 40 mg 40 mg DAILY SC Last administered on 10/03/16 09:37; Admin Dose 40 MG; Start 09/30/16 at 09:00 Levofloxacin/ Dextrose (Levaquin 750 Mg/ D5W 150 ml (Pmx)) 150 ml @ 100 mls/hr Q24H IVPB Last administered on 10/02/16 13:29; Admin Dose 100 MLS/HR; Start at 09:30 Lansoprazole (Prevacid) 30 mg BID NGT Last administered on 10/03/16 09:35; Admin Dose 30 MG; Start 09/30/16 at 21:00 DAMON BOSWELL DO Oct 03, 2016 10:16
[2016-10-03] MEDS: LEVOFLOXACIN 750MG/D5W (PMX) 150 ML IVPB SCH (10:37)
--- NOTE | 2016-10-03 11:16 | RADRPT ---
PROCEDURE: XR Chest. CLINICAL INDICATION: Shortness of breath. TECHNIQUE: Single frontal view. COMPARISON: 10/01/2016. FINDINGS: The endotracheal tube and nasogastric tube are in satisfactory position. There is mild pulmonary ed caryn and atelectasis at the lung bases, unchanged. Right side is worse than left side. The lungs are otherwise clear. The heart size is normal. There is calcification in the aorta consistent with atherosclerosis. There is no pleural effusion. There is no pneumothorax. IMPRESSION: 1. No change from 10/01/2016. RPTAT: QQ .Immanuel Dean MD, MD Date Time Electronically viewed and signed by .Immanuel Dean MD, MD on 10/03/2016 11:16 .R/
--- NOTE | 2016-10-03 12:01 | CONS ---
Date/Time of Note Date/Time of Note DATE: 10/03/16 TIME: 11:58 Assessment/Plan Assessment/Plan Additional Assessment/Plan Chest x-ray was reviewed from today which is showing vague right-sided infiltrative changes. Endotracheal tube is at an adequate level. Current ventilator settings are AC of 16, tidal volume 500, PEEP of 5, 35% FiO2. ABG was reviewed from today which is again showing significant hypercapnia which is partially compensated. Patient currently on fentanyl drip at 100 mics per hour, Versed 10 mg/h. Assessment recommendations; 1. Patient admitted for recurrent respiratory failure due to severe hypercapnia. 2. Right-sided pneumonia. Patient currently on appropriate antibiotic regimen. 3. History of bipolar disorder, history of paroxysmal atrial fibrillation and chronic type II Respiratory failure. 4. Failure to be weaned off from ventilator due to underlying severe lung disease. Continue current supportive care. Patient likely would need to have a tracheostomy performed. Consultation Date/Type/Reason Admit Date/Time Sep 29, 2016 at 09:25 Type of Consultation: Pulmonary/critical care 24 HR Interval Summary Free Text/Dictation Patient condition remains critical. Still requiring full ventilator support. Patient was given a sedation vacation yesterday patient however could not handle that well had to be re-sedated. General exam; middle-aged man, morbidly obese, orally intubated and sedated. Currently in no distress. Exam/Review of Systems Vital Signs Vitals Vital Signs Date Time Temp Pulse Resp B/P Pulse Ox O2 Delivery O2 Flow Rate FiO2 10/03/16 11:20 85 16 97 35 10/03/16 10:30 89/64 Mechanical Ventilator 10/03/16 08:00 99.3 Intake and Output 10/02/16 10/02/16 10/03/16 15:00 23:00 07:00 Intake Total 1290 ml 1360 ml 900 ml Output Total 420 ml 460 ml 465 ml Balance 870 ml 900 ml 435 ml Exam HEENT examination; supple neck, JVD difficult to see because of short neck. No thyromegaly. No neck bruits. Orally intubated. Pupils are midsize reactive to light. Patient has fair dentition. Chest exam; diminished but clear vessel. S1-S2 audible, no murmurs. Regular rhythm. Abdomen examination; soft, no organomegaly. Protuberant. Bowel sounds audible. Extremity exam is; no peripheral edema. Pulses 1+ bilaterally. [employer] examination; patient is sedated. Results Result Diagram: 10/03/16 0440 10/03/16 0440 Results 24 hrs Laboratory Tests Test 10/03/16 04:40 10/03/16 06:00 White Blood Count 14.8 H Red Blood Count 3.31 L Hemoglobin 10.2 L Hematocrit 34.0 L Mean Corpuscular Volume 102.7 H Mean Corpuscular Hemoglobin 30.8 Mean Corpuscular Hemoglobin Concent 30.0 L Red Cell Distribution Width 13.9 Platelet Count 183 Mean Platelet Volume 9.9 Neutrophils % 72.6 Lymphocytes % 12.6 L Monocytes % 9.5 Eosinophils % 4.3 Basophils % 0.1 Nucleated Red Blood Cells % 0.0 Neutrophils # 10.7 H Lymphocytes # 1.9 Monocytes # 1.4 H Eosinophils # 0.6 H Basophils # 0.0 Nucleated Red Blood Cells # 0.0 Sodium Level 140 Potassium Level 4.2 Chloride Level 97 Carbon Dioxide Level 34 H Anion Gap 13 Blood Urea Nitrogen 18 Creatinine 0.72 Glucose Level 88 Calcium Level 7.9 L Total Bilirubin 0.1 L Direct Bilirubin 0.00 Indirect Bilirubin 0.1 Aspartate Amino Transf (AST/SGOT) 25 Alanine Aminotransferase (ALT/SGPT) 36 Alkaline Phosphatase 69 Total Protein 6.1 Albumin 2.8 L Globulin 3.30 H Albumin/Globulin Ratio 0.84 Blood Gas Specimen Source Blood arterial Arterial Blood Date Drawn 10/03/2016 5:45:28 AM Arterial Blood pH (Temp corrected) 7.308 L Arterial Blood pCO2 (Temp correct) 70.5 H Arterial Blood pO2 (Temp corrected) 73.1 L Arterial Blood HCO3 34.5 H Arterial Blood Base Excess 5.8 H Arterial Blood Oxygen Saturation 92.6 L Elijah Test ACCEPTAB Arterial Blood Gas Puncture Site Left Radial Arterial Blood Carboxyhemoglobin 0.9 Arterial Blood Methemoglobin 0.2 Blood Gas A-a O2 Differential 94.5 H Oxyhemoglobin Percent 91.6 L Total Hemoglobin 14.0 Blood Gas Temperature 37.0 Blood Gas Respiration Rate 16.0 Blood Gas Actual Respiration Rate 16 Blood Gas Modality VENT - AC FiO2 35.0 Blood Gas Tidal Volume 500.0 Blood Gas Low PEEP Setting 5.0 Blood Gas Inspiratory Pressure 5.0 Blood Gas Notified Whom RTR Blood Gas Notified Time 10/03/2016 6:17:33 AM Medications Medications Current Medications Acetaminophen (Tylenol Tab) 650 mg Q4H PRN PO MILD PAIN LEVEL 1-3 Last administered on 10/01/16 07:58; Admin Dose 650 MG; Start 09/29/16 at 11:00 Acetaminophen (Tylenol Tab) 1,000 mg Q4H PRN PO PAIN LEVEL 4-6/10; Start at 11:00 Amiodarone HCl (Cordarone) 200 mg DAILY PO Last administered on 10/03/16 09:36 ; Admin Dose 200 MG; Start 09/30/16 at 09:00 Ascorbic Acid (Vitamin C) 500 mg DAILY PO Last administered on 10/03/16 09:36 ; Admin Dose 500 MG; Start 09/30/16 at 09:00 Aspirin (Aspirin) 81 mg DAILY PO Last administered on 10/03/16 09:36; Admin Dose 81 MG; Start 09/30/16 at 09:00 Atorvastatin Calcium (Lipitor) 5 mg QHS PO Last administered on 10/02/16 21:08 ; Admin Dose 5 MG; Start 09/29/16 at 21:00 Bisacodyl (Dulcolax Supp) 10 mg DAILY PRN [place] CONSTIPATION; Start 09/29/16 at 11 :00 Docusate Sodium (Colace) 200 mg QHS PRN PO CONSTIPATION; Start 09/29/16 at 11: 00 Loratadine (Claritin) 10 mg DAILY PO Last administered on 10/03/16 09:36; Admin Dose 10 MG; Start 09/30/16 at 09:00 Al Hydrox/Mg Hydrox/Simethicone (Mag-Al Plus) 30 ml Q6H PO Last administered on 10/03/16 11:51; Admin Dose 30 ML; Start 09/29/16 at 11:00 Magnesium Hydroxide (Milk Of Mag) 30 ml DAILY PRN PO CONSTIPATION; Start at 11:00 Metoprolol Tartrate (Lopressor) 25 mg BID PO Last administered on 10/02/16 08: 56; Admin Dose 25 MG; Start 09/29/16 at 21:00 Montelukast Sodium (Singulair) 10 mg QHS PO Last administered on 10/02/16 21: 01; Admin Dose 10 MG; Start 09/29/16 at 21:00 Multivitamins Therapeutic (Theragran) 1 tab DAILY PO Last administered on 09:36; Admin Dose 1 TAB; Start 09/30/16 at 09:00 Sodium Biphosphate/ Sodium Phosphate (Fleet Enema) 118 ml prn PRN [place] CONSTIPATION; Start 09/29/16 at 11:00 Eye Lubricant (Artificial Tears Oph) 1 drop TID BOTH EYES Last administered on 10/03/16 09:35; Admin Dose 1 DROP; Start 09/29/16 at 13:00 Lactobacillus Acidophilus 1 each 1 each BID PO Last administered on 10/03/16 09:36; Admin Dose 1 EACH; Start 09/29/16 at 21:00 Meropenem 100 ml @ 200 mls/hr Q8 IVPB Last administered on 10/03/16 05:57; Admin Dose 200 MLS/HR; Start 09/30/16 at 06:00 Linezolid 300 ml @ 300 mls/hr Q12 IVPB Last administered on 10/03/16 09:24; Admin Dose 300 MLS/HR; Start 09/29/16 at 23:30 Fentanyl 100 ml @ 2.5 mls/hr TITRATE IV Last administered on 10/03/16 08:44; Admin Dose 10 MLS/HR; Start 09/30/16 at 07:00 Midazolam HCl 50 ml @ 1 mls/hr TITRATE IV Last administered on 10/03/16 06:01 ; Admin Dose 10 MLS/HR; Start 09/30/16 at 07:00 Sodium Chloride (NS) 1,000 ml @ 50 mls/hr Q20H IV Last administered on 01:37; Admin Dose 50 MLS/HR; Start 09/30/16 at 08:30 Enoxaparin Sodium 40 mg 40 mg DAILY SC Last administered on 10/03/16 09:37; Admin Dose 40 MG; Start 09/30/16 at 09:00 Levofloxacin/ Dextrose (Levaquin 750 Mg/ D5W 150 ml (Pmx)) 150 ml @ 100 mls/hr Q24H IVPB Last administered on 10/03/16 10:37; Admin Dose 100 MLS/HR; Start at 09:30 Lansoprazole (Prevacid) 30 mg BID NGT Last administered on 10/03/16 09:35; Admin Dose 30 MG; Start 09/30/16 at 21:00 SHARON LLAMAS Oct 03, 2016 12:01
[2016-10-03] MEDS: SOD CHLORIDE 0.9% 1,000 ML IV SCH ×2 (12:04→16:08)
--- NOTE | 2016-10-03 12:05 | PN ---
Date/Time of Note Date/Time of Note DATE: 10/03/16 TIME: 12:04 Assessment/Plan VTE Prophylaxis VTE Prophylaxis Intervention: SCD's Lines/Catheters IV C[facility]ter Type (from [facility] Peripheral IV Urinary Cath still in place: Yes Reason Cath still needed: urinary retention Assessment/Plan Assessment/Plan 1. Hypoxemic and hypercapnic respiratory failure, status post intubation on the vent. 2. Chronic obstructive pulmonary disease exacerbation, possible pneumonia. 3. Status post sepsis and shock, currently blood pressure is improved. 4. History of paroxysmal atrial fibrillation, currently in sinus rhythm. 5. History of psychiatric disorder. 6. History of hypertension, currently hypotensive but stable. RECOMMENDATIONS -Continue with the ICU care. Respiratory care management as per pulmonary -Currently, remains in sinus rhythm. We will monitor on telemetry. Electrolytes will be corrected as needed. -Antibiotics managed as per ID. -Amiodarone will be continued for now. Aspirin will be continued. Subjective 24 Hr Interval Summary Free Text/Dictation the patient with no cahnge Exam/Review of Systems Vital Signs Vitals Vital Signs Date Time Temp Pulse Resp B/P Pulse Ox O2 Delivery O2 Flow Rate FiO2 10/03/16 11:20 85 16 97 35 10/03/16 10:30 89/64 Mechanical Ventilator 10/03/16 08:00 99.3 Intake and Output 10/02/16 10/02/16 10/03/16 15:00 23:00 07:00 Intake Total 1290 ml 1360 ml 900 ml Output Total 420 ml 460 ml 465 ml Balance 870 ml 900 ml 435 ml Results Result Diagram: 10/03/16 0440 10/03/16 0440 Results 24 hrs Laboratory Tests Test 10/03/16 04:40 10/03/16 06:00 White Blood Count 14.8 H Red Blood Count 3.31 L Hemoglobin 10.2 L Hematocrit 34.0 L Mean Corpuscular Volume 102.7 H Mean Corpuscular Hemoglobin 30.8 Mean Corpuscular Hemoglobin Concent 30.0 L Red Cell Distribution Width 13.9 Platelet Count 183 Mean Platelet Volume 9.9 Neutrophils % 72.6 Lymphocytes % 12.6 L Monocytes % 9.5 Eosinophils % 4.3 Basophils % 0.1 Nucleated Red Blood Cells % 0.0 Neutrophils # 10.7 H Lymphocytes # 1.9 Monocytes # 1.4 H Eosinophils # 0.6 H Basophils # 0.0 Nucleated Red Blood Cells # 0.0 Sodium Level 140 Potassium Level 4.2 Chloride Level 97 Carbon Dioxide Level 34 H Anion Gap 13 Blood Urea Nitrogen 18 Creatinine 0.72 Glucose Level 88 Calcium Level 7.9 L Total Bilirubin 0.1 L Direct Bilirubin 0.00 Indirect Bilirubin 0.1 Aspartate Amino Transf (AST/SGOT) 25 Alanine Aminotransferase (ALT/SGPT) 36 Alkaline Phosphatase 69 Total Protein 6.1 Albumin 2.8 L Globulin 3.30 H Albumin/Globulin Ratio 0.84 Blood Gas Specimen Source Blood arterial Arterial Blood Date Drawn 10/03/2016 5:45:28 AM Arterial Blood pH (Temp corrected) 7.308 L Arterial Blood pCO2 (Temp correct) 70.5 H Arterial Blood pO2 (Temp corrected) 73.1 L Arterial Blood HCO3 34.5 H Arterial Blood Base Excess 5.8 H Arterial Blood Oxygen Saturation 92.6 L Elijah Test ACCEPTAB Arterial Blood Gas Puncture Site Left Radial Arterial Blood Carboxyhemoglobin 0.9 Arterial Blood Methemoglobin 0.2 Blood Gas A-a O2 Differential 94.5 H Oxyhemoglobin Percent 91.6 L Total Hemoglobin 14.0 Blood Gas Temperature 37.0 Blood Gas Respiration Rate 16.0 Blood Gas Actual Respiration Rate 16 Blood Gas Modality VENT - AC FiO2 35.0 Blood Gas Tidal Volume 500.0 Blood Gas Low PEEP Setting 5.0 Blood Gas Inspiratory Pressure 5.0 Blood Gas Notified Whom RTR Blood Gas Notified Time 10/03/2016 6:17:33 AM Medications Medications Current Medications Acetaminophen (Tylenol Tab) 650 mg Q4H PRN PO MILD PAIN LEVEL 1-3 Last administered on 10/01/16 07:58; Admin Dose 650 MG; Start 09/29/16 at 11:00 Acetaminophen (Tylenol Tab) 1,000 mg Q4H PRN PO PAIN LEVEL 4-6/10; Start at 11:00 Amiodarone HCl (Cordarone) 200 mg DAILY PO Last administered on 10/03/16 09:36 ; Admin Dose 200 MG; Start 09/30/16 at 09:00 Ascorbic Acid (Vitamin C) 500 mg DAILY PO Last administered on 10/03/16 09:36 ; Admin Dose 500 MG; Start 09/30/16 at 09:00 Aspirin (Aspirin) 81 mg DAILY PO Last administered on 10/03/16 09:36; Admin Dose 81 MG; Start 09/30/16 at 09:00 Atorvastatin Calcium (Lipitor) 5 mg QHS PO Last administered on 10/02/16 21:08 ; Admin Dose 5 MG; Start 09/29/16 at 21:00 Bisacodyl (Dulcolax Supp) 10 mg DAILY PRN [place] CONSTIPATION; Start 09/29/16 at 11 :00 Docusate Sodium (Colace) 200 mg QHS PRN PO CONSTIPATION; Start 09/29/16 at 11: 00 Loratadine (Claritin) 10 mg DAILY PO Last administered on 10/03/16 09:36; Admin Dose 10 MG; Start 09/30/16 at 09:00 Al Hydrox/Mg Hydrox/Simethicone (Mag-Al Plus) 30 ml Q6H PO Last administered on 10/03/16 11:51; Admin Dose 30 ML; Start 09/29/16 at 11:00 Magnesium Hydroxide (Milk Of Mag) 30 ml DAILY PRN PO CONSTIPATION; Start at 11:00 Metoprolol Tartrate (Lopressor) 25 mg BID PO Last administered on 10/02/16 08: 56; Admin Dose 25 MG; Start 09/29/16 at 21:00 Montelukast Sodium (Singulair) 10 mg QHS PO Last administered on 10/02/16 21: 01; Admin Dose 10 MG; Start 09/29/16 at 21:00 Multivitamins Therapeutic (Theragran) 1 tab DAILY PO Last administered on 09:36; Admin Dose 1 TAB; Start 09/30/16 at 09:00 Sodium Biphosphate/ Sodium Phosphate (Fleet Enema) 118 ml prn PRN [place] CONSTIPATION; Start 09/29/16 at 11:00 Eye Lubricant (Artificial Tears Oph) 1 drop TID BOTH EYES Last administered on 10/03/16 09:35; Admin Dose 1 DROP; Start 09/29/16 at 13:00 Lactobacillus Acidophilus 1 each 1 each BID PO Last administered on 10/03/16 09:36; Admin Dose 1 EACH; Start 09/29/16 at 21:00 Meropenem 100 ml @ 200 mls/hr Q8 IVPB Last administered on 10/03/16 05:57; Admin Dose 200 MLS/HR; Start 09/30/16 at 06:00 Linezolid 300 ml @ 300 mls/hr Q12 IVPB Last administered on 10/03/16 09:24; Admin Dose 300 MLS/HR; Start 09/29/16 at 23:30 Fentanyl 100 ml @ 2.5 mls/hr TITRATE IV Last administered on 10/03/16 08:44; Admin Dose 10 MLS/HR; Start 09/30/16 at 07:00 Midazolam HCl 50 ml @ 1 mls/hr TITRATE IV Last administered on 10/03/16 11:57 ; Admin Dose 10 MLS/HR; Start 09/30/16 at 07:00 Sodium Chloride (NS) 1,000 ml @ 50 mls/hr Q20H IV Last administered on 12:04; Admin Dose 50 MLS/HR; Start 09/30/16 at 08:30 Enoxaparin Sodium 40 mg 40 mg DAILY SC Last administered on 10/03/16 09:37; Admin Dose 40 MG; Start 09/30/16 at 09:00 Levofloxacin/ Dextrose (Levaquin 750 Mg/ D5W 150 ml (Pmx)) 150 ml @ 100 mls/hr Q24H IVPB Last administered on 10/03/16 10:37; Admin Dose 100 MLS/HR; Start at 09:30 Lansoprazole (Prevacid) 30 mg BID NGT Last administered on 10/03/16 09:35; Admin Dose 30 MG; Start 09/30/16 at 21:00 DAYLIN BECKFORD MD Oct 03, 2016 12:05
--- NOTE | 2016-10-03 19:47 | PN ---
DATE: 10/03/2016 INFECTIOUS DISEASE PROGRESS NOTE SUBJECTIVE: No acute events. The patient is lying comfortably in bed. He is afebrile. WBC today 14.8, platelets 183, no shift, no bands. BUN 18, creatinine 0.72. DIAGNOSTICS: Chest x-ray this morning revealed no change. INDWELLINGS: NG tube, Estrella catheter. ANTIMICROBIALS: Zyvox, Levaquin, meropenem. ALLERGIES: VANCOMYCIN. PHYSICAL EXAMINATION: GENERAL: This is a morbidly obese, middle-aged white man who is intubated, sedated, in no distress. HEENT: Head atraumatic, normocephalic. Sclerae anicteric. Buccal mucosa dry. NECK: Obese. CHEST: Rise symmetrical. Breath sounds diminished to bases. HEART: S1, S2. ABDOMEN: Obese, soft, bowel tones present. EXTREMITIES: Bilateral edema. ASSESSMENT: 1. [id number] respiratory failure. 2. Healthcare-associated pneumonia, possibly aspiration event. 3. Severe chronic obstructive pulmonary disease. 4. Morbid obesity. 5. History of bipolar disorder. 6. History of paroxysmal atrial fibrillation. PLAN: The patient remains stable. Pulmonary, cardiology on case. Continue present care. Antibiot ics. Dictated By: NANCY MOREL PREFABRICATOR for ARVIN NOVA MD NI/NTS Conf#: [id number] DID#: [id number] CC: RAMY DOMINGUEZ DO;*EndCC*
[2016-10-03] MEDS: MONTELUKAST 10 MG TAB PO SCH (21:09)
[2016-10-03] MEDS: ATORVASTATIN 10 MG TAB PO SCH (21:09)
[2016-10-04] VITALS (55 sets, daily range): BP systolic 86–118; BP diastolic 61–89; PULSE 73–96; RESP 14–63
[2016-10-04] MEDS: FENTAnyl (DRIP) 1000 mcg/100mL 100 ML IV SCH ×2 (02:13→14:01)
[2016-10-04] MEDS: MIDAZOLAM (DRIP) 50 mg/50 mL 50 ML IV SCH ×4 (02:35→23:03)
[2016-10-04] MEDS: AL HYDROX/MG HYDROX/SIMETH 30 ML CUP PO SCH ×4 (05:49→23:04)
[2016-10-04] MEDS: MEROPENEM 500 MG/100 ML (PMX) 100 ML IVPB SCH ×3 (05:50→23:03)
[2016-10-04 06:31] LABS: ADD SCAN DIFF NO
[2016-10-04 06:41] LABS: BASOPHILS % 0.1 % (0.0-2.0); EOSINOPHILS # 0.6 10^3/ul (0.0-0.5); EOSINOPHILS % 3.5 % (0.0-7.0); HEMATOCRIT 30.6 % (42.0-52.0); HEMOGLOBIN 9.3 g/dl (14.0-18.0); LYMPHOCYTES # 1.2 10^3/ul (0.8-2.9); LYMPHOCYTES % 7.6 % (15.0-51.0); MEAN CORPUSCULAR HEMOGLOBIN 30.6 pg (29.0-33.0); MEAN CORPUSCULAR HGB CONC 30.4 g/dl (32.0-37.0); MEAN CORPUSCULAR VOLUME 100.7 fl (82.0-101.0); MEAN PLATELET VOLUME 9.8 fl (7.4-10.4); MONOCYTE # 1.4 10^3/ul (0.3-0.9); MONOCYTES % 8.4 % (0.0-11.0); NEUTROPHIL # 12.8 10^3/ul (1.6-7.5); NEUTROPHILS % 79.8 % (39.0-77.0); PLATELET COUNT 171 10^3/UL (140-415); RED BLOOD COUNT 3.04 10^6/ul (4.70-6.10); RED CELL DISTRIBUTION WIDTH 14.1 % (11.5-14.5)
[2016-10-04] MEDS ORDERED: FUROSEMIDE 20 MG INJ IV ONE (08:30)
[2016-10-04 08:39] LABS: CALCIUM 7.9 mg/dl (8.4-10.2); CREATININE 0.62 mg/dl (0.61-1.24); POTASSIUM 4.5 mmol/L (3.5-5.1)
[2016-10-04] MEDS: METOPROLOL 25 MG TAB PO SCH ×2 (09:00→20:56)
--- NOTE | 2016-10-04 09:07 | PN ---
DATE: 10/04/2016 SUBJECTIVE: The patient remains on full ventilatory support, unable to be weaned. No other acute e vents noted overnight. No hemoptysis, hematemesis or hematochezia. OBJECTIVE: VITAL SIGNS: Blood pressure 114/80, respirations 16, pulse 77, temperature 98.3. INTAKE AND OUTPUT: The patient had 3.2 liters in, 1.2 liters out. HEENT: Head is normocephalic. NECK: Supple. HEART: Regular rate. LUNGS: Show diminished breath sounds at the base. ABDOMEN: Soft, nontender to palpation. EXTREMITIES: Negative for clubbing, cyanosis. Trace edema. DERMATOLOGIC: No rashes. MUSCULOSKELETAL: No joint effusions. NEUROLOGIC: No change in exam. MEDICATIONS: Reviewed. LABORATORY DATA: Shows sodium 140, potassium 4.2, chloride 97, BUN 18, creatinine 0.72, calcium 7.9 . White count 16.0, hemoglobin 9.3, hematocrit 38.6, platelet count is 14.1. ABG on 10/03/2016 maura ws pH 7.30, pCO2 of 70, pO2 of 73. The patient's blood cultures negative x2. IMAGING: Chest x-ray from 10/03/2016 shows mild pulmonary edema, otherwise no change. ASSESSMENT AND PLAN: 1. Ventilator-dependent respiratory failure. Etiology secondary to chronic obstructive pulmonary d isease exacerbation and pneumonia. The patient is currently ventilator dependent, unable to be wean ed. We will continue current treatment plan. Continue IV antibiotics, nebulizers, Solu-Medrol. Petros phillips's ABG has been reviewed. Chest x-ray was reviewed. We will follow up with pulmonary for wean ing trials. 2. Sepsis secondary to pneumonia. The patient has been clinically improving. Continue current med ical management. Continue IV antibiotics. Follow up with infectious disease. Cultures have been r eviewed. 3. Leukocytosis secondary to sepsis, steroids. The patient's WBC has been stable, slowly improving . Continue to monitor. 4. Acute encephalopathy, etiology secondary to hypercapnia. Continue to monitor. 5. Acute diastolic heart failure. The patient has noted pulmonary edema. We will give Lasix 20 mg IV x1, discontinue IV fluids, and monitor closely. Follow up with cardiology. 6. Anemia of chronic disease. Continue to monitor H and H levels. 7. Respiratory acidosis with metabolic compensation. Continue to monitor. 8. Paroxysmal atrial fibrillation. The patient is currently in sinus rhythm. Continue medical man agement. 9. History of coronary artery disease. Continue current treatment plan 10. Bipolar disorder. Continue to monitor. 11. Hypertension. The patient is currently normotensive. Continue current medical management. 12. Nutrition. Continue tube feeding. 13. Gastrointestinal and deep venous thrombosis prophylaxis. Continue Protonix and Lovenox. Janelle vilchis I spent over 35 minutes of critical care time with this patient. Dictated By: RAMY PERRY/ALYSON Conf#: [id number] DID#: [id number]
[2016-10-04] MEDS: MULTIVITAMINS THERAPEUTIC TAB PO SCH (09:26)
[2016-10-04] MEDS: ASCORBIC ACID 500 MG TAB PO SCH (09:26)
[2016-10-04] MEDS: L ACIDOPHIL/B LACTIS/B LONGUM CAPSULE PO SCH ×2 (09:26→20:55)
[2016-10-04] MEDS: ASPIRIN 81 MG TAB PO SCH (09:26)
[2016-10-04] MEDS: LORATADINE 10 MG TAB PO SCH (09:26)
[2016-10-04] MEDS: AMIODARONE 200 MG TAB PO SCH (09:27)
[2016-10-04] MEDS: ARTIFICIAL TEARS 15 ML OPH BOTH EYES SCH ×3 (09:27→20:56)
[2016-10-04] MEDS: LANSOPRAZOLE 30 MG CAP NGT SCH ×2 (09:27→20:55)
[2016-10-04] MEDS: ENOXAPARIN 40 MG/0.4 ML SYG SC SCH (09:29)
[2016-10-04] MEDS: LEVOFLOXACIN 750MG/D5W (PMX) 150 ML IVPB SCH (09:29)
--- NOTE | 2016-10-04 10:59 | CONS ---
Date/Time of Note Date/Time of Note DATE: 10/04/16 TIME: 10:57 Consult Date/Type/Reason Admit Date/Time Sep 29, 2016 at 09:25 Initial Consult Date Type of Consultation: Pulmonary/critical care Subjective Patient opens eyes and follows commands Objective Vital Signs Date Time Temp Pulse Resp B/P Pulse Ox O2 Delivery O2 Flow Rate FiO2 10/04/16 10:19 93 16 96 35 10/04/16 09:30 102/71 Mechanical Ventilator 10/04/16 08:00 99.1 Intake and Output 10/03/16 10/03/16 10/04/16 15:00 23:00 07:00 Intake Total 1460 ml 1170 ml 560 ml Output Total 380 ml 470 ml 390 ml Balance 1080 ml 700 ml 170 ml Exam PHYSICAL EXAMINATION GENERAL: Elderly gentleman, intubated on mechanical ventilation, opens eyes and appears somewhat agitated. Orally intubated. VITAL SIGNS: see below. HEENT: Pupils equal, round, and reactive to light. CARDIAC: S1, S2, tachycardia. CHEST: Diminished air entry bilaterally. ABDOMEN: Mildly distended. Bowel sounds present no guarding or rebound EXTREMITIES: No cyanosis, clubbing edema +1 NEUROLOGIC: No focal deficits. Results/Medications Result Diagram: 10/04/16 0602 10/04/16 0602 Results 24 hrs Laboratory Tests Test 10/04/16 06:02 White Blood Count 16.0 H Red Blood Count 3.04 L Hemoglobin 9.3 L Hematocrit 30.6 L Mean Corpuscular Volume 100.7 Mean Corpuscular Hemoglobin 30.6 Mean Corpuscular Hemoglobin Concent 30.4 L Red Cell Distribution Width 14.1 Platelet Count 171 Mean Platelet Volume 9.8 Neutrophils % 79.8 H Lymphocytes % 7.6 L Monocytes % 8.4 Eosinophils % 3.5 Basophils % 0.1 Nucleated Red Blood Cells % 0.0 Neutrophils # 12.8 H Lymphocytes # 1.2 Monocytes # 1.4 H Eosinophils # 0.6 H Basophils # 0.0 Nucleated Red Blood Cells # 0.0 Sodium Level 134 L Potassium Level 4.5 Chloride Level 100 Carbon Dioxide Level 31 Anion Gap 8 Blood Urea Nitrogen 12 Creatinine 0.62 Glucose Level 90 Calcium Level 7.9 L Medications Current Medications Acetaminophen (Tylenol Tab) 650 mg Q4H PRN PO MILD PAIN LEVEL 1-3 Last administered on 10/01/16t 07:58; Admin Dose 650 MG; Start 09/29/16 at 11:00 Acetaminophen (Tylenol Tab) 1,000 mg Q4H PRN PO PAIN LEVEL 4-610; Start at 11:00 Amiodarone HCl (Cordarone) 200 mg DAILY PO Last administered on 10/04/16 09:27 ; Admin Dose 200 MG; Start 09/30/16 at 09:00 Ascorbic Acid (Vitamin C) 500 mg DAILY PO Last administered on 10/04/16 09:26 ; Admin Dose 500 MG; Start 09/30/16 at 09:00 Aspirin (Aspirin) 81 mg DAILY PO Last administered on 10/04/16 09:26; Admin Dose 81 MG; Start 09/30/16 at 09:00 Atorvastatin Calcium (Lipitor) 5 mg QHS PO Last administered on 10/03/16 21:09 ; Admin Dose 5 MG; Start 09/29/16 at 21:00 Bisacodyl (Dulcolax Supp) 10 mg DAILY PRN [place] CONSTIPATION; Start 09/29/16 at 11 :00 Docusate Sodium (Colace) 200 mg QHS PRN PO CONSTIPATION; Start 09/29/16 at 11: 00 Loratadine (Claritin) 10 mg DAILY PO Last administered on 10/04/16 09:26; Admin Dose 10 MG; Start 09/30/16 at 09:00 Al Hydrox/Mg Hydrox/Simethicone (Mag-Al Plus) 30 ml Q6H PO Last administered on 10/04/16 05:49; Admin Dose 30 ML; Start 09/29/16 at 11:00 Magnesium Hydroxide (Milk Of Mag) 30 ml DAILY PRN PO CONSTIPATION; Start at 11:00 Metoprolol Tartrate (Lopressor) 25 mg BID PO Last administered on 10/02/16 08: 56; Admin Dose 25 MG; Start 09/29/16 at 21:00 Montelukast Sodium (Singulair) 10 mg QHS PO Last administered on 10/03/16 21: 09; Admin Dose 10 MG; Start 09/29/16 at 21:00 Multivitamins Therapeutic (Theragran) 1 tab DAILY PO Last administered on 09:26; Admin Dose 1 TAB; Start 09/30/16 at 09:00 Sodium Biphosphate/ Sodium Phosphate (Fleet Enema) 118 ml prn PRN [place] CONSTIPATION; Start 09/29/16 at 11:00 Eye Lubricant (Artificial Tears Oph) 1 drop TID BOTH EYES Last administered on 10/04/16 09:27; Admin Dose 1 DROP; Start 09/29/16 at 13:00 Lactobacillus Acidophilus 1 each 1 each BID PO Last administered on 10/04/16 09:26; Admin Dose 1 EACH; Start 09/29/16 at 21:00 Meropenem 100 ml @ 200 mls/hr Q8 IVPB Last administered on 10/04/16 05:50; Admin Dose 200 MLS/HR; Start 09/30/16 at 06:00 Linezolid 300 ml @ 300 mls/hr Q12 IVPB Last administered on 10/03/16 21:11; Admin Dose 300 MLS/HR; Start 09/29/16 at 23:30 Fentanyl 100 ml @ 2.5 mls/hr TITRATE IV Last administered on 10/04/16 02:13; Admin Dose 10 MLS/HR; Start 09/30/16 at 07:00 Midazolam HCl (Versed) 50 ml @ 1 mls/hr TITRATE IV Last administered on 07:51; Admin Dose 10 MLS/HR; Start 09/30/16 at 07:00 Enoxaparin Sodium 40 mg 40 mg DAILY SC Last administered on 10/04/16 09:29; Admin Dose 40 MG; Start 09/30/16 at 09:00 Levofloxacin/ Dextrose (Levaquin 750 Mg/ D5W 150 ml (Pmx)) 150 ml @ 100 mls/hr Q24H IVPB Last administered on 10/04/16 09:29; Admin Dose 100 MLS/HR; Start at 09:30 Lansoprazole (Prevacid) 30 mg BID NGT Last administered on 10/04/16 09:27; Admin Dose 30 MG; Start 09/30/16 at 21:00 Assessment/Plan Chief Complaint/Hosp Course Assessment 1. Acute on chronic hypoxemic and hypercapnic respiratory failure 2. Likely obstructive sleep apnea 3. Systolic and diastolic dysfunction 4. Leukocytosis likely secondary to accommodation steroids and aspiration pneumonia Plan 1. Continue mechanical ventilation, CPAP weaning trial 2. Post extubation will require noninvasive positive pressure ventilation 3. Continue broad-spectrum antibiotics 4. Continue steroids 5. DVT and GI prophylaxis Disposition Continue ICU care Problems: DEMARIO BROWN MD, [facility] Oct 04, 2016 10:59
[2016-10-04] MEDS: LINEZOLID 600 MG/D5W (PMX) 300 ML IVPB SCH ×2 (11:15→20:56)
[2016-10-04] MEDS: METHYLPREDNISOLONE 125 MG INJ IV SCH ×2 (13:10→23:04)
--- NOTE | 2016-10-04 14:51 | PN ---
DATE: 10/04/2016 INFECTIOUS DISEASE PROGRESS NOTE SUBJECTIVE: No acute events. The patient is intubated and sedated, in no distress, no fevers. LABORATORY DATA: WBC 16, platelets 171, neutrophils 79.8, BUN 12, creatinine 0.62. INDWELLINGS: Endotracheal tube, NG tube, Estrella catheter. ANTIMICROBIALS: The patient is on: 1. Levaquin. 2. Zyvox 3. Meropenem. PHYSICAL EXAMINATION: GENERAL: This is an obese, well-developed, middle-aged man who is lying comfortably in bed. HEENT: Head atraumatic, normocephalic. Sclerae anicteric. Buccal mucosa dry. NECK: Obese, trachea midline. CHEST: Rise symmetrical. Breath sounds diminished to bases. HEART: S1, S2. ABDOMEN: Obese, soft, bowel sounds present. EXTREMITIES: Bilateral trace edema. ASSESSMENT: 1. Acute on chronic hypoxemic respiratory failure. 2. Healthcare-associated pneumonia, possibly aspiration. 3. Chronic obstructive pulmonary disease. 4. History of bipolar disorder. 5. History of atrial fibrillation. 6. ALLERGY TO VANCOMYCIN. PLAN: Remains stable. Continue present care, antibiotics, vent management as per pulmonary. Dictated By: NANCY MOREL C [employer]ON WORKER for [employer] VERDUZCO/NTS Conf#: [id number] DID#: [id number]
[2016-10-04] MEDS: ATORVASTATIN 10 MG TAB PO SCH (20:55)
[2016-10-04] MEDS: MONTELUKAST 10 MG TAB PO SCH (20:55)
[2016-10-05] VITALS (59 sets, daily range): BP systolic 91–148; BP diastolic 66–101; PULSE 67–113; RESP 0–22
[2016-10-05] MEDS: FENTAnyl (DRIP) 1000 mcg/100mL 100 ML IV SCH ×3 (00:11→22:52)
[2016-10-05] MEDS: MIDAZOLAM (DRIP) 50 mg/50 mL 50 ML IV SCH ×3 (04:27→20:39)
[2016-10-05] MEDS: AL HYDROX/MG HYDROX/SIMETH 30 ML CUP PO SCH ×4 (04:31→22:52)
[2016-10-05] MEDS: MEROPENEM 500 MG/100 ML (PMX) 100 ML IVPB SCH ×3 (05:43→21:51)
[2016-10-05] MEDS: METHYLPREDNISOLONE 125 MG INJ IV SCH ×3 (05:43→21:51)
[2016-10-05 06:34] LABS: ADD SCAN DIFF NO
[2016-10-05 06:40] LABS: BASOPHILS % 0.1 % (0.0-2.0); EOSINOPHILS % 0.1 % (0.0-7.0); HEMATOCRIT 33.2 % (42.0-52.0); HEMOGLOBIN 10.6 g/dl (14.0-18.0); LYMPHOCYTES # 0.7 10^3/ul (0.8-2.9); LYMPHOCYTES % 3.8 % (15.0-51.0); MEAN CORPUSCULAR HEMOGLOBIN 31.3 pg (29.0-33.0); MEAN CORPUSCULAR HGB CONC 31.9 g/dl (32.0-37.0); MEAN CORPUSCULAR VOLUME 97.9 fl (82.0-101.0); MEAN PLATELET VOLUME 10.4 fl (7.4-10.4); MONOCYTE # 0.2 10^3/ul (0.3-0.9); NEUTROPHIL # 17.6 10^3/ul (1.6-7.5); NEUTROPHILS % 94.4 % (39.0-77.0); PLATELET COUNT 202 10^3/UL (140-415); RED BLOOD COUNT 3.39 10^6/ul (4.70-6.10); RED CELL DISTRIBUTION WIDTH 13.5 % (11.5-14.5); WHITE BLOOD COUNT 18.6 10^3/ul (4.8-10.8)
[2016-10-05 07:07] LABS: CALCIUM 8.3 mg/dl (8.4-10.2); CREATININE 0.58 mg/dl (0.61-1.24); MAGNESIUM 2.3 mg/dl (1.7-2.5); PHOSPHORUS 3.6 mg/dl (2.5-4.9); POTASSIUM 4.6 mmol/L (3.5-5.1)
--- NOTE | 2016-10-05 07:39 | PN ---
DATE: 10/04/2016 SUBJECTIVE: Discussed with the staff. Rhythm strip was reviewed. The patient remains in sinus rhy thm. No atrial fibrillation. Still intubated on the vent. Has failed CPAP trial. The patient int ubated still. Unable to provide much of a history to me. MEDICATIONS: Reviewed as per medication reconciliation. Personally reviewed. PHYSICAL EXAMINATION: VITAL SIGNS: Temperature 98.9, heart rate of 84, blood pressure 117/80, respiration rate of 16, sat urating 96%. HEENT: Normocephalic, atraumatic. Obese gentleman. Pupils equal, round. Status post intubation o n the vent. CARDIOVASCULAR: Regular rate and rhythm, systolic murmur. PULMONARY: Mild rhonchi. No wheezes heard anteriorly. GASTROINTESTINAL: Obese, soft, nontender. EXTREMITIES: Positive lower extremity edema. NEUROLOGIC: Opens his eyes to verbal stimuli. PSYCHIATRIC: Appears to be calm. LABORATORY: WBC of 16, hemoglobin 9.3, platelets of 171. Sodium 134, potassium 4.5, BUN of 12, cre atinine 0.62, glucose of 90. Albumin is 2.8. Chest x-ray done yesterday shows no significant mcqueen e. Mild pulmonary edema, atelectasis at lung bases, unchanged, right side is worse than the left. Lungs are otherwise clear per radiology report. ASSESSMENT AND PLAN: 1. Hypoxemic hypercapnic respiratory failure, status post intubation on the vent now. 2. Chronic obstructive pulmonary disease exacerbation. 3. History of paroxysmal atrial fibrillation, currently remains in sinus. 4. Status post sepsis and possible pneumonia. 5. Leukocytosis. 6. Encephalopathy. 7. Congestive heart failure. 8. Pulmonary vascular congestion. 9. Diastolic dysfunction as above. 10. Anemia. 11. History of psych disorder and bipolar disorder. RECOMMENDATIONS: A dose of Lasix was given today. Electrolytes will be corrected as needed. Vent support will be continued for today and weaning trial as tolerated. Blood pressure on the low side, but stable now. Will continue to monitor. Amiodarone will be continued ____ patient remains in si nus rhythm. Continue with the ICU care. Dictated By: BRENTON RIOS MD AV/ALYSON Conf#: [id number] DID#: [id number] CC: RAMY DOMINGUEZ DO;*EndCC*
[2016-10-05 08:19] LABS: AADO2 Arterial 156.6 mmHg (7.0-24.0); Allen Test ACCEPTAB; Arterial Base Excess 7.3 mmol/L (-3.0-3); Arterial COHb 0.2 % (0.0-3.0); Arterial Fraction of Oxyhgb 95.5 % (93.0-99.0); Arterial HCO3 34.6 mmol/L (22.0-26.0); Arterial MetHb 0.3 % (0.0-1.5); Arterial Total Hemglobin 10.9 g/dl (12.0-18.0); MODE VENT - AC
[2016-10-05] MEDS ORDERED: FUROSEMIDE 20 MG INJ IV ONE (08:30)
[2016-10-05] MEDS: AMIODARONE 200 MG TAB PO SCH (08:56)
[2016-10-05] MEDS: LORATADINE 10 MG TAB PO SCH (08:56)
[2016-10-05] MEDS: ASCORBIC ACID 500 MG TAB PO SCH (08:56)
[2016-10-05] MEDS: ARTIFICIAL TEARS 15 ML OPH BOTH EYES SCH ×3 (08:56→21:05)
[2016-10-05] MEDS: LANSOPRAZOLE 30 MG CAP NGT SCH ×2 (08:56→21:05)
[2016-10-05] MEDS: MULTIVITAMINS THERAPEUTIC TAB PO SCH (08:57)
[2016-10-05] MEDS: L ACIDOPHIL/B LACTIS/B LONGUM CAPSULE PO SCH ×2 (08:57→21:06)
[2016-10-05] MEDS: ASPIRIN 81 MG TAB PO SCH (08:57)
[2016-10-05] MEDS: METOPROLOL 25 MG TAB PO SCH ×2 (08:57→21:06)
[2016-10-05] MEDS: ENOXAPARIN 40 MG/0.4 ML SYG SC SCH (08:58)
[2016-10-05] MEDS: LINEZOLID 600 MG/D5W (PMX) 300 ML IVPB SCH ×2 (09:04→21:09)
[2016-10-05] MEDS ORDERED: LIDOCAINE 1% (MPF) 5 ML VIAL SC ONE (09:30)
[2016-10-05] MEDS: LEVOFLOXACIN 750MG/D5W (PMX) 150 ML IVPB SCH (10:06)
--- NOTE | 2016-10-05 10:21 | PN ---
DATE: 10/05/2016 SUBJECTIVE: The patient is stable, remains intubated, unable to be weaned. The patient is critical , but stable. No other events noted. No hemoptysis, hematemesis or hematochezia. OBJECTIVE: VITAL SIGNS: Blood pressure is 124/89, respirations 16, pulse 83, temperature 97.7. I's and O's: The patient had 2 liters in with 3.5 liters out. HEENT: Head is normocephalic. NECK: Supple. HEART: Regular rate. LUNGS: Show diminished breath sounds at the base. ABDOMEN: Soft, nontender to palpation. No rebound or guarding. EXTREMITIES: Negative for clubbing, cyanosis. Trace edema. DERMATOLOGIC: No rashes. MUSCULOSKELETAL: No joint effusions. NEUROLOGIC: No change in exam. MEDICATIONS: The patient's medications have been reviewed. LABORATORY DATA: Shows white count 18.6, hemoglobin 10.6, hematocrit 33.2, platelet count is 202/ Sodium is 137, potassium 4.6, chloride 97, bicarbonate 36, BUN 14, creatinine 0.58. ABG was reviewe d, shows pH of 7.348, pCO2 of 64. ASSESSMENT AND PLAN: 1. Ventilator-dependent respiratory failure, etiology secondary to chronic obstructive pulmonary di sease exacerbation and pneumonia. The patient is currently attempting weaning trials. We will cont inue current treatment plan with IV antibiotics, nebulizer, Solu-Medrol. The patient's ABGs and [facility] st x-ray were reviewed. 2. Sepsis secondary to pneumonia, clinically improving. Continue current medical management. Cont inue IV antibiotics. Cultures have been reviewed. 3. Leukocytosis secondary to steroids and sepsis. The patient's WBC has been elevated, but stable. Continue to monitor. 4. Acute encephalopathy, etiology secondary to hypercapnia. Continue to monitor. 5. Acute diastolic heart failure. The patient has noted pulmonary edema. Continue intermittent di uretic therapy. We will give another dose of Lasix 20 mg IV x1. 6. Anemia of chronic disease. Continue to monitor hemoglobin and hematocrit levels. 7. Respiratory acidosis with metabolic compensation. Continue to monitor. 8. Paroxysmal atrial fibrillation. The patient is currently in sinus rhythm. Continue medical man agement. 9. History of coronary artery disease. Continue current treatment plan. 10. Bipolar disorder. Continue to monitor. 11. Hypertension. The patient is currently normotensive. Continue to monitor. 12. Nutrition. Continue tube feeding. 13. Gastrointestinal and deep venous thrombosis prophylaxis. Continue Protonix and Lovenox. Please note I spent over 35 minutes of critical care time with this patient. Dictated By: RAMY PERRY/ALYSON Conf#: [id number] DID#: [id number]
--- NOTE | 2016-10-05 10:32 | CONS ---
Date/Time of Note Date/Time of Note DATE: 10/05/16 TIME: 10:31 Consult Date/Type/Reason Admit Date/Time Sep 29, 2016 at 09:25 Type of Consultation: Pulmonary/critical care Subjective Failed CPAP weaning trial yesterday Remains intubated on mechanical ventilation Opens eyes and responds to simple questions Objective Vital Signs Date Time Temp Pulse Resp B/P Pulse Ox O2 Delivery O2 Flow Rate FiO2 10/05/16 09:00 76 17 108/84 98 Mechanical Ventilator 10/05/16 08:00 97.7 10/05/16 08:00 45 Intake and Output 10/04/16 10/04/16 10/05/16 15:00 23:00 07:00 Intake Total 852 ml 652 ml 650 ml Output Total 2100 ml 915 ml 475 ml Balance -1248 ml -263 ml 175 ml Exam PHYSICAL EXAMINATION GENERAL: Elderly gentleman, intubated on mechanical ventilation, opens eyes and appears somewhat agitated. Orally intubated. VITAL SIGNS: see below. HEENT: Pupils equal, round, and reactive to light. CARDIAC: S1, S2, tachycardia. CHEST: Diminished air entry bilaterally. ABDOMEN: Mildly distended. Bowel sounds present no guarding or rebound EXTREMITIES: No cyanosis, clubbing edema +1 NEUROLOGIC: No focal deficits. Results/Medications Result Diagram: 10/05/16 0550 10/05/16 0550 Results 24 hrs Laboratory Tests Test 10/05/16 05:50 10/05/16 07:00 White Blood Count 18.6 H Red Blood Count 3.39 L Hemoglobin 10.6 L Hematocrit 33.2 L Mean Corpuscular Volume 97.9 Mean Corpuscular Hemoglobin 31.3 Mean Corpuscular Hemoglobin Concent 31.9 L Red Cell Distribution Width 13.5 Platelet Count 202 Mean Platelet Volume 10.4 Neutrophils % 94.4 H Lymphocytes % 3.8 L Monocytes % 1.0 Eosinophils % 0.1 Basophils % 0.1 Nucleated Red Blood Cells % 0.0 Neutrophils # 17.6 H Lymphocytes # 0.7 L Monocytes # 0.2 L Eosinophils # 0.0 Basophils # 0.0 Nucleated Red Blood Cells # 0.0 Sodium Level 137 Potassium Level 4.6 Chloride Level 97 Carbon Dioxide Level 36 H Anion Gap 9 Blood Urea Nitrogen 14 Creatinine 0.58 L Glucose Level 184 Calcium Level 8.3 L Phosphorus Level 3.6 Magnesium Level 2.3 Blood Gas Specimen Source Blood arterial Arterial Blood Date Drawn 10/05/2016 7:38:08 AM Arterial Blood pH (Temp corrected) 7.348 L Arterial Blood pCO2 (Temp correct) 64.5 H Arterial Blood pO2 (Temp corrected) 90.9 Arterial Blood HCO3 34.6 H Arterial Blood Base Excess 7.3 H Arterial Blood Oxygen Saturation 96.0 Elijah Test ACCEPTAB Arterial Blood Gas Puncture Site Right Radial Arterial Blood Carboxyhemoglobin 0.2 Arterial Blood Methemoglobin 0.3 Blood Gas A-a O2 Differential 156.6 H Oxyhemoglobin Percent 95.5 Total Hemoglobin 10.9 L Blood Gas Temperature 37.0 Blood Gas Respiration Rate 16.0 Blood Gas Actual Respiration Rate 16 Blood Gas Modality VENT - AC FiO2 45.0 Blood Gas Tidal Volume 500.0 Blood Gas Low PEEP Setting 5.0 Blood Gas Notified Whom JLD Blood Gas Notified Time 10/05/2016 8:19:13 AM Medications Current Medications Acetaminophen (Tylenol Tab) 650 mg Q4H PRN PO MILD PAIN LEVEL 1-3 Last administered on 10/01/16 07:58; Admin Dose 650 MG; Start 09/29/16 at 11:00 Acetaminophen (Tylenol Tab) 1,000 mg Q4H PRN PO PAIN LEVEL 4-6/10; Start at 11:00 Amiodarone HCl (Cordarone) 200 mg DAILY PO Last administered on 10/05/16 08:56 ; Admin Dose 200 MG; Start 09/30/16 at 09:00 Ascorbic Acid (Vitamin C) 500 mg DAILY PO Last administered on 10/05/16 08:56 ; Admin Dose 500 MG; Start 09/30/16 at 09:00 Aspirin (Aspirin) 81 mg DAILY PO Last administered on 10/05/16 08:57; Admin Dose 81 MG; Start 09/30/16 at 09:00 Atorvastatin Calcium (Lipitor) 5 mg QHS PO Last administered on 10/04/16 20:55 ; Admin Dose 5 MG; Start 09/29/16 at 21:00 Bisacodyl (Dulcolax Supp) 10 mg DAILY PRN ME CONSTIPATION; Start 09/29/16 at 11 :00 Docusate Sodium (Colace) 200 mg QHS PRN PO CONSTIPATION; Start 09/29/16 at 11: 00 Loratadine (Claritin) 10 mg DAILY PO Last administered on 10/05/16 08:56; Admin Dose 10 MG; Start 09/30/16 at 09:00 Al Hydrox/Mg Hydrox/Simethicone (Mag-Al Plus) 30 ml Q6H PO Last administered on 10/05/16 04:31; Admin Dose 30 ML; Start 09/29/16 at 11:00 Magnesium Hydroxide (Milk Of Mag) 30 ml DAILY PRN PO CONSTIPATION; Start at 11:00 Metoprolol Tartrate (Lopressor) 25 mg BID PO Last administered on 10/05/16 08: 57; Admin Dose 25 MG; Start 09/29/16 at 21:00 Montelukast Sodium (Singulair) 10 mg QHS PO Last administered on 10/04/16 20: 55; Admin Dose 10 MG; Start 09/29/16 at 21:00 Multivitamins Therapeutic (Theragran) 1 tab DAILY PO Last administered on 08:57; Admin Dose 1 TAB; Start 09/30/16 at 09:00 Sodium Biphosphate/ Sodium Phosphate (Fleet Enema) 118 ml prn PRN ME CONSTIPATION; Start 09/29/16 at 11:00 Eye Lubricant (Artificial Tears Oph) 1 drop TID BOTH EYES Last administered on 10/04/16 20:56; Admin Dose 1 DROP; Start 09/29/16 at 13:00 Lactobacillus Acidophilus 1 each 1 each BID PO Last administered on 10/05/16 08:57; Admin Dose 1 EACH; Start 09/29/16 at 21:00 Meropenem 100 ml @ 200 mls/hr Q8 IVPB Last administered on 10/05/16 05:43; Admin Dose 200 MLS/HR; Start 09/30/16 at 06:00 Linezolid 300 ml @ 300 mls/hr Q12 IVPB Last administered on 10/05/16 09:04; Admin Dose 300 MLS/HR; Start 09/29/16 at 23:30 Fentanyl 100 ml @ 2.5 mls/hr TITRATE IV Last administered on 10/05/16 00:11; Admin Dose 10 MLS/HR; Start 09/30/16 at 07:00 Midazolam HCl (Versed) 50 ml @ 1 mls/hr TITRATE IV Last administered on 04:27; Admin Dose 10 MLS/HR; Start 09/30/16 at 07:00 Enoxaparin Sodium 40 mg 40 mg DAILY SC Last administered on 10/05/16 08:58; Admin Dose 40 MG; Start 09/30/16 at 09:00 Levofloxacin/ Dextrose (Levaquin 750 Mg/ D5W 150 ml (Pmx)) 150 ml @ 100 mls/hr Q24H IVPB Last administered on 10/05/16 10:06; Admin Dose 100 MLS/HR; Start at 09:30 Lansoprazole (Prevacid) 30 mg BID NGT Last administered on 10/05/16 08:56; Admin Dose 30 MG; Start 09/30/16 at 21:00 Methylprednisolone Sodium Succinate (Solu-Medrol) 60 mg Q8 IV Last administered on 10/05/16 05:43; Admin Dose 60 MG; Start 10/04/16 at 14:00 Assessment/Plan Chief Complaint/Hosp Course Assessment 1. Acute on chronic hypoxemic and hypercapnic respiratory failure 2. Likely obstructive sleep apnea 3. Systolic and diastolic dysfunction 4. Leukocytosis likely secondary to accommodation steroids and aspiration pneumonia Plan 1. Continue mechanical ventilation, repeat CPAP trial this morning 2. Post extubation will require noninvasive positive pressure ventilation 3. Continue broad-spectrum antibiotics 4. Continue steroids 5. DVT and GI prophylaxis Disposition Continue ICU care If patient fails CPAP weaning will require tracheostomy Problems: DEM[facility]IO BROWN MD, [facility] Oct 05, 2016 10:32
--- NOTE | 2016-10-05 11:02 | RADRPT ---
PROCEDURE: XR Chest. CLINICAL INDICATION: Shortness of breath. TECHNIQUE: Single frontal view. COMPARISON: 10/03/2016. FINDINGS: The endotracheal tube and nasogastric tube remain in satisfactory position. There is mild pulmonary edema and atelectasis at the lung bases, unchanged. Right is worse than left. The lungs are other alonzo clear. The heart size is normal. There is calcification in the aorta consistent with atherosclerosis. There is no pleural effusion. There is no pneumothorax. IMPRESSION: 1. No change from 10/03/2016. RPTAT: QQ .Immanuel Dean MD, MD Date Time Electronically viewed and signed by .Immanuel Dean MD, MD on 10/05/2016 11:02 .R/
[2016-10-05 13:52] LABS: Allen Test ACCEPTAB; Arterial Base Excess 9.1 mmol/L (-3.0-3); Arterial COHb 0.3 % (0.0-3.0); Arterial Fraction of Oxyhgb 95.8 % (93.0-99.0); Arterial HCO3 37.6 mmol/L (22.0-26.0); Arterial MetHb 0.3 % (0.0-1.5); Arterial Total Hemglobin 12.1 g/dl (12.0-18.0); Blood Gas PS 10; MODE VENT - CPAP
--- NOTE | 2016-10-05 14:44 | EN ---
Date/Time of Note Date/Time of Note DATE: 10/05/16 TIME: 14:42 Event Note Medicine Medicine Event Note Patient has poor IV access. Needs central line. PICC line ordered. DEM[facility] BROWN [facility], [facility] Oct 05, 2016 14:44
--- NOTE | 2016-10-05 15:38 | PN ---
DATE: 10/05/2016 CARDIOLOGY FOLLOWUP SUBJECTIVE: Discussed with the staff. The patient remains in sinus paced rhythm. No obvious signs of atrial fibrillation. Currently on weaning on CPAP. The patient with lots of secretions as well . MEDICATIONS: Reviewed. PHYSICAL EXAMINATION: VITAL SIGNS: Temperature 97.7, heart rate of 99, blood pressure 115/99, respiratory rate of 28. HEENT: Normocephalic, atraumatic. Appears to be in distress, intubated. On CPAP. CARDIOVASCULAR: Regular rate and rhythm. PULMONARY: Anteriorly with mild rhonchi, diffuse. GASTROINTESTINAL: Obese, soft, nontender. EXTREMITIES: Positive edema. NEUROLOGIC: Awake. PSYCHIATRIC: Anxious. LABORATORY: WBC of 18.6, hemoglobin 10.6, platelets 202. Sodium 137, potassium 4.6, BUN of 14, cre atinine 0.58, glucose 184. Chest x-ray shows no significant change. ASSESSMENT AND PLAN: 1. Hypoxic hypercapnic respiratory failure, status post intubation. 2. Chronic obstructive pulmonary disease and possible pneumonia. 3. Paroxysmal atrial fibrillation, currently sinus. 4. Congestive heart failure/fluid overload, significant diastolic dysfunction. 5. Anemia. 6. Psychiatric disorder and bipolar disorder. 6. History of hypertension, currently ____tensive but stable. RECOMMENDATIONS: We will continue with the current cardiac care. Respiratory care will be continue d. Weaning as tolerated. Aggressive respiratory care as admission. Dictated By: BRENTON SAVAGE/ALYSON Conf#: [id number] DID#: [id number]
--- NOTE | 2016-10-05 17:29 | PN ---
DATE: 10/05/2016 SUBJECTIVE: No acute changes. The patient is on CPAP. He is awake, looks comfortable. No fevers. WBC today 18.6, H and H 10.6 and 33.2, platelets 202, neutrophils 94.4. BUN 14, creatinine 0.58. DIAGNOSTICS: Chest x-ray revealed no change. INDWELLINGS: Endotracheal tube, NG tube, Estrella. ANTIMICROBIALS: The patient remains on: 1. Levaquin. 2. Zyvox. 3. Meropenem. ALLERGIES: VANCOMYCIN. PHYSICAL EXAMINATION: GENERAL: This is a morbidly obese middle-aged white man who is lying comfortably in bed. HEENT: Head atraumatic, normocephalic. Sclerae anicteric. Buccal mucosa dry. NECK: Supple. Trachea midline. CHEST: Rise symmetrical. Breath sounds diminished to bases. HEART: S1, S2. ABDOMEN: Soft. Bowel tones present. EXTREMITIES: Bilateral edema. ASSESSMENT: 1. Acute on chronic hypoxemic respiratory failure. 2. Healthcare-associated pneumonia, possibly aspiration. 3. Chronic obstructive pulmonary disease. 4. History of atrial fibrillation and bipolar disorder. 5. Morbid obesity. 6. Congestive heart failure exacerbation. PLAN: The patient remains stable, tolerates CPAP. Continue present care, antibiotics. Vent manage ment as per Pulmonary. Dictated By: NANCY MOREL [employer] for ARVIN VERDUZCO/NTS Conf#: [id number] DID#: [id number]
[2016-10-05] MEDS: MONTELUKAST 10 MG TAB PO SCH (21:06)
[2016-10-05] MEDS: ATORVASTATIN 10 MG TAB PO SCH (21:06)
[2016-10-06] VITALS (55 sets, daily range): BP systolic 96–143; BP diastolic 64–98; PULSE 69–88; RESP 16–19
[2016-10-06] MEDS: MIDAZOLAM (DRIP) 50 mg/50 mL 50 ML IV SCH ×5 (01:45→21:33)
[2016-10-06] MEDS: AL HYDROX/MG HYDROX/SIMETH 30 ML CUP PO SCH ×4 (05:00→22:16)
[2016-10-06 06:30] LABS: ADD SCAN DIFF NO
[2016-10-06] MEDS: METHYLPREDNISOLONE 125 MG INJ IV SCH ×3 (06:31→22:16)
[2016-10-06] MEDS: MEROPENEM 500 MG/100 ML (PMX) 100 ML IVPB SCH ×3 (06:31→22:16)
[2016-10-06 06:41] LABS: ABNORMAL IP MESSAGE 1; BASOPHILS % 0.1 % (0.0-2.0); HEMATOCRIT 30.6 % (42.0-52.0); HEMOGLOBIN 9.8 g/dl (14.0-18.0); LYMPHOCYTES # 0.6 10^3/ul (0.8-2.9); LYMPHOCYTES % 2.7 % (15.0-51.0); MEAN CORPUSCULAR HEMOGLOBIN 31.3 pg (29.0-33.0); MEAN CORPUSCULAR VOLUME 97.8 fl (82.0-101.0); MONOCYTE # 0.4 10^3/ul (0.3-0.9); MONOCYTES % 2.2 % (0.0-11.0); NEUTROPHIL # 19.1 10^3/ul (1.6-7.5); NEUTROPHILS % 94.4 % (39.0-77.0); PLATELET COUNT 218 10^3/UL (140-415); RED BLOOD COUNT 3.13 10^6/ul (4.70-6.10); RED CELL DISTRIBUTION WIDTH 13.5 % (11.5-14.5); WHITE BLOOD COUNT 20.2 10^3/ul (4.8-10.8)
[2016-10-06 06:45] LABS: POTASSIUM 4.5 mmol/L (3.5-5.1)
[2016-10-06 06:47] LABS: CREATININE 0.56 mg/dl (0.61-1.24)
[2016-10-06 06:48] LABS: CALCIUM 8.4 mg/dl (8.4-10.2); PHOSPHORUS 3.2 mg/dl (2.5-4.9)
[2016-10-06 06:49] LABS: MAGNESIUM 2.4 mg/dl (1.7-2.5)
[2016-10-06] MEDS: FENTAnyl (DRIP) 1000 mcg/100mL 100 ML IV SCH ×2 (08:04→16:46)
[2016-10-06] MEDS: LORATADINE 10 MG TAB PO SCH (08:04)
[2016-10-06] MEDS: AMIODARONE 200 MG TAB PO SCH (08:04)
[2016-10-06] MEDS: LANSOPRAZOLE 30 MG CAP NGT SCH ×2 (08:04→20:44)
[2016-10-06] MEDS: ASPIRIN 81 MG TAB PO SCH (08:04)
[2016-10-06] MEDS: METOPROLOL 25 MG TAB PO SCH ×2 (08:04→21:00)
[2016-10-06] MEDS: MULTIVITAMINS THERAPEUTIC TAB PO SCH (08:04)
[2016-10-06] MEDS: ASCORBIC ACID 500 MG TAB PO SCH (08:05)
[2016-10-06] MEDS: ARTIFICIAL TEARS 15 ML OPH BOTH EYES SCH ×3 (08:05→20:47)
[2016-10-06] MEDS: LINEZOLID 600 MG/D5W (PMX) 300 ML IVPB SCH ×2 (08:05→21:33)
[2016-10-06] MEDS: ENOXAPARIN 40 MG/0.4 ML SYG SC SCH (08:07)
[2016-10-06] MEDS: L ACIDOPHIL/B LACTIS/B LONGUM CAPSULE PO SCH ×2 (08:08→20:44)
--- NOTE | 2016-10-06 08:16 | PN ---
DATE: 10/06/2016 CARDIOLOGY FOLLOWUP SUBJECTIVE: The patient has failed CPAP yesterday. Still intubated on the vent in the ICU. Rhythm strip was reviewed. Remains in sinus rhythm, atrial fibrillation. MEDICATIONS: Reviewed as per medication reconciliation, which was personally reviewed. PHYSICAL EXAMINATION: VITAL SIGNS: Temperature 97.5, heart rate of 78, blood pressure 142/87, respiration rate of 16, sat urating 96%. HEENT: Normocephalic, atraumatic. Obese gentleman. Status post intubation on the vent. Eyes: Pu pils equal and round. CARDIOVASCULAR: Regular rate and rhythm, systolic murmur. PULMONARY: With no wheezes heard. GASTROINTESTINAL: Soft, nontender. EXTREMITIES: With positive lower extremity edema. NEUROLOGIC: Opens eyes, responds appropriately. PSYCHIATRIC: Appears to be anxious, but pleasant. LABORATORY: WBC of 20.2, hemoglobin 9.8, platelets 218. Sodium 139, potassium 4.5, BUN of 20, crea tinine 0.56, glucose 153. ASSESSMENT AND PLAN: 1. Hypoxemia and hypercapnic respiratory failure, status post intubation on the vent. 2. Fluid overload/congestive heart failure secondary to diastolic dysfunction. 3. History of paroxysmal atrial fibrillation, currently remains in sinus rhythm. 4. Anemia. 5. History of hypertension, under good control now. 6. Severe chronic obstructive pulmonary disease. 7. Psychiatric disorder. 8. Bipolar disorder. RECOMMENDATIONS: Electrolytes including potassium and magnesium will be replaced as needed, current ly stable. Continue the vent support, weaning as tolerated. Respiratory care will be continued. D iuresis as needed will be continued. Amiodarone, will continue. Antibiotic as per ID's recommendat ion. Dictated By: BRENTON SAVGAE/ALYSON Conf#: [id number] DID#: [id number]
--- NOTE | 2016-10-06 08:32 | PN ---
DATE: 10/06/2016 SUBJECTIVE: The patient remains intubated, on full ventilatory support, unable to be weaned. No ot her events noted. No hemoptysis, hematemesis, or hematochezia. OBJECTIVE: VITAL SIGNS: Blood pressure 139/90, respirations are 18, pulse 78, temperature 97.5. HEENT: Head is normocephalic. NECK: Supple. HEART: Regular rate. LUNGS: Show diminished breath sounds at the base. ABDOMEN: Soft, nontender to palpation. No rebound or guarding. EXTREMITIES: Negative for clubbing, cyanosis. Positive edema. DERMATOLOGIC: No rashes. MUSCULOSKELETAL: No joint effusions. NEUROLOGIC: No change in exam. LABORATORY DATA: Shows sodium 139, potassium 4.6, bicarbonate 36, BUN 20, creatinine 0.56. White c ount 20.2, hemoglobin 9.8, hematocrit 30.6, platelet count is 218. IMAGING: The patient's chest x-ray shows mild pulmonary edema, no change. ASSESSMENT AND PLAN: 1. Ventilator-dependent respiratory failure. Etiology secondary to chronic obstructive pulmonary d isease exacerbation, pneumonia. The patient has failed weaning trials. We will continue current tr eatment plan with antibiotics, nebulizer, Solu-Medrol. Follow up with pulmonary. 2. Sepsis secondary to pneumonia, clinically improving. Continue current antibiotic regimen. 3. Leukocytosis secondary to steroid sepsis. The patient's WBC remains elevated, but stable. Cont inue to monitor. 4. Acute encephalopathy secondary to hypercapnia. Continue current treatment plan. 5. Acute diastolic heart failure. The patient has noted pulmonary edema. Continue intermittent di uretic therapy with Lasix. May consider giving Diamox as the patient has persistent hypercapnia. 6. Anemia of chronic disease. Continue to monitor hemoglobin and hematocrit levels. 7. Respiratory acidosis, metabolic compensation. Continue to monitor. 8. Paroxysmal atrial fibrillation, currently in sinus rhythm. Continue medical management. 9. Coronary artery disease. Continue current treatment plan. 10. Bipolar disorder. 11. Hypertension. Continue current blood pressure regimen. 12. Dysphagia. Continue tube feeding. 13. Gastrointestinal and deep venous thrombosis prophylaxis. Continue Protonix and Lovenox. 14. Access. The patient had to have emergent PICC line placement yesterday. Please note I spent over 40 minutes of critical care time with this patient. Dictated By: RAMY PERRY/NTS Conf#: [id number] DID#: [id number]
--- NOTE | 2016-10-06 08:40 | RADRPT ---
PROCEDURE: XR Chest 1 View. CLINICAL INDICATION: Shortness of breath TECHNIQUE: AP view of the chest was obtained. COMPARISON: Yesterday FINDINGS: The cardiomediastinal silhouette is within normal limits. Endotracheal and nasogastric tubes are sta ble and appear in grossly appropriate location. The lungs are hyperexpanded. Interstitial prominen ce in both lungs is unchanged. Superimposed patchy alveolar infiltrates throughout the right lung a re stable. Small right pleural effusion is noted. Patchy retrocardiac infiltrates, combined small p leural effusion are unchanged. The osseous structures are unchanged. IMPRESSION: Hyperexpanded lungs with stable diffuse interstitial prominence in both lungs. Stable superimposed patchy alveolar infiltrates throughout the right lung and small right pleural ef fusion. Stable patchy retrocardiac left lower lobe infiltrates and small left pleural effusion. RPTAT: AA .Roly Mejias MD, Date Time Electronically viewed and signed by .Roly Mejias MD, on 10/06/2016 08:40 .P/
[2016-10-06] MEDS ORDERED: FUROSEMIDE 20 MG INJ IV SCH (09:00)
--- NOTE | 2016-10-06 09:16 | CONS ---
Date/Time of Note Date/Time of Note DATE: 10/06/16 TIME: 09:14 Assessment/Plan Assessment/Plan Additional Assessment/Plan Chest x-ray was reviewed from today which is showing persistent right-sided infiltrative changes. Endotracheal tube is at an adequate level. Ventilator settings; AC of 16, tidal volume 500, PEEP of 5, 30% FiO2. Assessment recommendations; 1. Patient admitted for hypercapnic and hypoxemic respiratory failure. 2. Likely underlying chronic type II respiratory failure due to sleep apnea and obesity. 3. Bilateral pneumonia. 4. Patient has failed multiple weaning trials from ventilator. Continue current treatment. Patient likely will need to have a tracheostomy performed. Consultation Date/Type/Reason Admit Date/Time Sep 29, 2016 at 09:25 Type of Consultation: Pulmonary/critical care 24 HR Interval Summary Free Text/Dictation Patient condition remains critical. Has failed several weaning trials from ventilator. Has remained hemodynamically stable. General exam; middle-aged male, morbidly obese, orally intubated and arousable despite being on sedation. Currently in no distress. Exam/Review of Systems Vital Signs Vitals Vital Signs Date Time Temp Pulse Resp B/P Pulse Ox O2 Delivery O2 Flow Rate FiO2 10/06/16 07:46 98.5 10/06/16 07:45 30 10/06/16 07:30 78 139/90 96 Mechanical Ventilator 10/06/16 04:50 16 Intake and Output 10/05/16 10/05/16 10/06/16 15:00 23:00 07:00 Intake Total 1000 ml 720 ml 340 ml Output Total 1425 ml 760 ml 450 ml Balance -425 ml -40 ml -110 ml Exam HEENT examination; supple neck, JVD difficult to see because of short neck, or intubated, patient has fair dentition. Nipples are equal and reactive to light bilaterally. No thyromegaly, no neck masses, no lymphadenopathy. Chest examination [place]: Diminished but clear breath sounds. S1-S2 audible, no murmurs. Regular rhythm. Abdomen examination; soft, protuberant. No organomegaly. Bowel sounds audible. Extremity exam is; no peripheral edema. Pulses 1+ bilaterally. SOLDER SPRAYER exam is; patient is arousable. Results Result Diagram: 10/06/16 0615 10/06/16 0615 Results 24 hrs Laboratory Tests Test 10/05/16 14:00 10/06/16 06:15 Blood Gas Specimen Source Blood arterial Arterial Blood Date Drawn 10/05/2016 1:40:01 PM Arterial Blood pH (Temp corrected) 7.328 L Arterial Blood pCO2 (Temp correct) 73.2 H Arterial Blood pO2 (Temp corrected) 94.6 Arterial Blood HCO3 37.6 H Arterial Blood Base Excess 9.1 H Arterial Blood Oxygen Saturation 96.4 Elijah Test ACCEPTAB Arterial Blood Gas Puncture Site Right Radial Arterial Blood Carboxyhemoglobin 0.3 Arterial Blood Methemoglobin 0.3 Blood Gas A-a O2 Differential 143.0 H Oxyhemoglobin Percent 95.8 Total Hemoglobin 12.1 Blood Gas Temperature 37.0 Blood Gas Actual Respiration Rate 18 Blood Gas Modality VENT - CPAP FiO2 45.0 Blood Gas Low PEEP Setting 5.0 Blood Gas Pressure Support 10 Blood Gas Notified Whom JLD Blood Gas Notified Time 10/05/2016 1:52:43 PM White Blood Count 20.2 H Red Blood Count 3.13 L Hemoglobin 9.8 L Hematocrit 30.6 L Mean Corpuscular Volume 97.8 Mean Corpuscular Hemoglobin 31.3 Mean Corpuscular Hemoglobin Concent 32.0 Red Cell Distribution Width 13.5 Platelet Count 218 Mean Platelet Volume 10.0 Neutrophils % 94.4 H Lymphocytes % 2.7 L Monocytes % 2.2 Eosinophils % 0.0 Basophils % 0.1 Nucleated Red Blood Cells % 0.0 Neutrophils # 19.1 H Lymphocytes # 0.6 L Monocytes # 0.4 Eosinophils # 0.0 Basophils # 0.0 Nucleated Red Blood Cells # 0.0 Sodium Level 139 Potassium Level 4.5 Chloride Level 96 L Carbon Dioxide Level 36 H Anion Gap 12 Blood Urea Nitrogen 20 Creatinine 0.56 L Glucose Level 153 Calcium Level 8.4 Phosphorus Level 3.2 Magnesium Level 2.4 Medications Medications Current Medications Acetaminophen (Tylenol Tab) 650 mg Q4H PRN PO MILD PAIN LEVEL 1-3 Last administered on 10/01/16 07:58; Admin Dose 650 MG; Start 09/29/16 at 11:00 Acetaminophen (Tylenol Tab) 1,000 mg Q4H PRN PO PAIN LEVEL 4-6/10; Start at 11:00 Amiodarone HCl (Cordarone) 200 mg DAILY PO Last administered on 10/06/16 08:04 ; Admin Dose 200 MG; Start 09/30/16 at 09:00 Ascorbic Acid (Vitamin C) 500 mg DAILY PO Last administered on 10/06/16 08:05 ; Admin Dose 500 MG; Start 09/30/16 at 09:00 Aspirin (Aspirin) 81 mg DAILY PO Last administered on 10/06/16 08:04; Admin Dose 81 MG; Start 09/30/16 at 09:00 Atorvastatin Calcium (Lipitor) 5 mg QHS PO Last administered on 10/05/16 21:06 ; Admin Dose 5 MG; Start 09/29/16 at 21:00 Bisacodyl (Dulcolax Supp) 10 mg DAILY PRN [place] CONSTIPATION; Start 09/29/16 at 11 :00 Docusate Sodium (Colace) 200 mg QHS PRN PO CONSTIPATION; Start 09/29/16 at 11: 00 Loratadine (Claritin) 10 mg DAILY PO Last administered on 10/06/16 08:04; Admin Dose 10 MG; Start 09/30/16 at 09:00 Al Hydrox/Mg Hydrox/Simethicone (Mag-Al Plus) 30 ml Q6H PO Last administered on 10/06/16 05:00; Admin Dose 30 ML; Start 09/29/16 at 11:00 Magnesium Hydroxide (Milk Of Mag) 30 ml DAILY PRN PO CONSTIPATION; Start at 11:00 Metoprolol Tartrate (Lopressor) 25 mg BID PO Last administered on 10/06/16 08: 04; Admin Dose 25 MG; Start 09/29/16 at 21:00 Montelukast Sodium (Singulair) 10 mg QHS PO Last administered on 10/05/16 21: 06; Admin Dose 10 MG; Start 09/29/16 at 21:00 Multivitamins Therapeutic (Theragran) 1 tab DAILY PO Last administered on 08:04; Admin Dose 1 TAB; Start 09/30/16 at 09:00 Sodium Biphosphate/ Sodium Phosphate (Fleet Enema) 118 ml prn PRN [place] CONSTIPATION; Start 09/29/16 at 11:00 Eye Lubricant (Artificial Tears Oph) 1 drop TID BOTH EYES Last administered on 10/06/16 08:05; Admin Dose 1 DROP; Start 09/29/16 at 13:00 Lactobacillus Acidophilus 1 each 1 each BID PO Last administered on 10/06/16 08:08; Admin Dose 1 EACH; Start 09/29/16 at 21:00 Meropenem 100 ml @ 200 mls/hr Q8 IVPB Last administered on 10/06/16 06:31; Admin Dose 200 MLS/HR; Start 09/30/16 at 06:00 Linezolid 300 ml @ 300 mls/hr Q12 IVPB Last administered on 10/06/16 08:05; Admin Dose 300 MLS/HR; Start 09/29/16 at 23:30 Fentanyl 100 ml @ 2.5 mls/hr TITRATE IV Last administered on 10/06/16 08:04; Admin Dose 10 MLS/HR; Start 09/30/16 at 07:00 Midazolam HCl (Versed) 50 ml @ 1 mls/hr TITRATE IV Last administered on 07:05; Admin Dose 10 MLS/HR; Start 09/30/16 at 07:00 Enoxaparin Sodium 40 mg 40 mg DAILY SC Last administered on 10/06/16 08:07; Admin Dose 40 MG; Start 09/30/16 at 09:00 Levofloxacin/ Dextrose (Levaquin 750 Mg/ D5W 150 ml (Pmx)) 150 ml @ 100 mls/hr Q24H IVPB Last administered on 10/05/16 10:06; Admin Dose 100 MLS/HR; Start at 09:30 Lansoprazole (Prevacid) 30 mg BID NGT Last administered on 10/06/16 08:04; Admin Dose 30 MG; Start 09/30/16 at 21:00 Methylprednisolone Sodium Succinate (Solu-Medrol) 60 mg Q8 IV Last administered on 10/06/16 06:31; Admin Dose 60 MG; Start 10/04/16 at 14:00 Acetazolamide (Diamox) 500 mg ONCE ONCE IV ; Start 10/06/16 at 09:30; Stop at 09:31 SHARON LLAMAS Oct 06, 2016 09:16
[2016-10-06] MEDS: LEVOFLOXACIN 750MG/D5W (PMX) 150 ML IVPB SCH (09:17)
[2016-10-06] MEDS ORDERED: ACETAZOLAMIDE 500 MG INJ IV ONE (09:30)
[2016-10-06] MEDS ORDERED: LIDOCAINE 1% (MPF) 5 ML VIAL SC ONE (12:30)
--- NOTE | 2016-10-06 13:55 | RADRPT ---
PROCEDURE: Ultrasound guidance for placement of needle in right upper extremity vein. CLINICAL INDICATION: Venous access. TECHNIQUE: Limited sonography of the right upper extremity was performed. Ultrasound images were recorded and stored in the patient's medical record. COMPARISON: None. FINDINGS: The ultrasound images demonstrate a patent right upper extremity vein. The PICC line was inserted b y the PICC line nurse. IMPRESSION: 1. Ultrasound guidance for a needle placement in a right upper extremity vein. 2. The visualized right upper extremity vein is patent. RPTAT: QQ .Immanuel Dean MD, MD Date Time Electronically viewed and signed by .Immanuel Dean MD, MD on 10/06/2016 13:55 .R/
--- NOTE | 2016-10-06 13:58 | RADRPT ---
PROCEDURE: XR Chest. CLINICAL INDICATION: Check PICC line position. TECHNIQUE: Single frontal view. COMPARISON: 10/06/2016. FINDINGS: There is a right arm PICC line with the tip in the lower superior vena cava. Patchy air space disea se throughout the right lung and left lower lung zone is unchanged. The endotracheal tube and nasog astric tube remain in satisfactory position. The heart is mildly enlarged. There is no pleural effusion. There is no pneumothorax. IMPRESSION: 1. Satisfactory position of right arm PICC line. 2. No other change from 10/06/2016. RPTAT: QQ .Immanuel Dean MD, MD Date Time Electronically viewed and signed by .Immanuel Dean MD, MD on 10/06/2016 13:58 .R/
--- NOTE | 2016-10-06 17:16 | PN ---
DATE: 10/06/2016 SUBJECTIVE: No acute changes. The patient is lying comfortably in bed. No fevers. He is getting PICC line. WBC today 20.2 with neutrophils 94.4. No bands. BUN 20, creatinine 0.56. DIAGNOSTICS: Chest x-ray this morning revealed no changes. INDWELLINGS: Endotracheal tube, NG tube, Estrella catheter, peripheral IV. ANTIMICROBIALS 1. Levaquin. 2. Meropenem. 3. Zyvox. PHYSICAL EXAMINATION: GENERAL: This is a morbidly obese, well-developed, middle-aged white man who is intubated, in no distress. HEENT: Head atraumatic, normocephalic. Sclerae anicteric. Buccal mucosa dry. NECK: Supple, trachea midline. CHEST: Rise symmetrical. Breath sounds diminished to bases. HEART: S1, S2. ABDOMEN: Obese, distended. Bowel tones hypoactive. EXTREMITIES: Bilateral edema. ASSESSMENT: 1. Sepsis. 2. Acute on chronic hypoxemia, respiratory failure. 3. Healthcare-associated pneumonia, possibly aspiration. 4. Congestive heart failure exacerbation. 5. History of bipolar disorder. 6. Anemia. 7. Morbid obesity. PLAN: The patient remains unchanged, hemodynamically stable with failed multiple weaning trials. Pulmonary on case, may need tracheostomy. Dictated By: NANCY MOREL MINE SAFETY ENGINEER for ARVIN VERDUZCO/ALYSON Conf#: [id number] DID#: [id number] MTDD
[2016-10-06] MEDS: ATORVASTATIN 10 MG TAB PO SCH (20:44)
[2016-10-06] MEDS: MONTELUKAST 10 MG TAB PO SCH (20:47)
[2016-10-07] VITALS (79 sets, daily range): BP systolic 96–140; BP diastolic 39–93; PULSE 65–95; RESP 12–28
[2016-10-07] MEDS: MIDAZOLAM (DRIP) 50 mg/50 mL 50 ML IV SCH ×4 (02:15→20:39)
[2016-10-07] MEDS: FENTAnyl (DRIP) 1000 mcg/100mL 100 ML IV SCH ×2 (02:16→14:37)
[2016-10-07 04:48] LABS: ADD SCAN DIFF NO
[2016-10-07 04:56] LABS: ABNORMAL IP MESSAGE 1; BASOPHILS % 0.1 % (0.0-2.0); HEMOGLOBIN 9.6 g/dl (14.0-18.0); LYMPHOCYTES # 0.6 10^3/ul (0.8-2.9); LYMPHOCYTES % 3.3 % (15.0-51.0); MEAN CORPUSCULAR HEMOGLOBIN 30.4 pg (29.0-33.0); MEAN CORPUSCULAR VOLUME 98.1 fl (82.0-101.0); MEAN PLATELET VOLUME 10.3 fl (7.4-10.4); MONOCYTE # 0.5 10^3/ul (0.3-0.9); MONOCYTES % 2.9 % (0.0-11.0); NEUTROPHILS % 93.2 % (39.0-77.0); PLATELET COUNT 203 10^3/UL (140-415); RED BLOOD COUNT 3.16 10^6/ul (4.70-6.10); RED CELL DISTRIBUTION WIDTH 13.5 % (11.5-14.5); WHITE BLOOD COUNT 17.2 10^3/ul (4.8-10.8)
[2016-10-07 05:15] LABS: POTASSIUM 4.1 mmol/L (3.5-5.1)
[2016-10-07] MEDS: METHYLPREDNISOLONE 125 MG INJ IV SCH ×3 (05:16→21:18)
[2016-10-07 05:17] LABS: CREATININE 0.7 mg/dl (0.61-1.24)
[2016-10-07] MEDS: MEROPENEM 500 MG/100 ML (PMX) 100 ML IVPB SCH ×3 (05:17→21:51)
[2016-10-07] MEDS: AL HYDROX/MG HYDROX/SIMETH 30 ML CUP PO SCH ×4 (05:17→22:32)
[2016-10-07 05:19] LABS: CALCIUM 8.4 mg/dl (8.4-10.2)
[2016-10-07] MEDS ORDERED: ACETAZOLAMIDE 500 MG INJ IV ONE (07:30)
--- NOTE | 2016-10-07 07:50 | PN ---
DATE: 10/07/2016 SUBJECTIVE: The patient remains intubated, failed weaning attempt yesterday. No other events noted . No hemoptysis, hematemesis or hematochezia. OBJECTIVE: VITAL SIGNS: Blood pressure 114/76, respirations 16, pulse 72, temperature 98.7. I's AND O'S: The patient has 2.6 liters in, 2.2 liters out. HEENT: Head is normocephalic. NECK: Supple. HEART: Regular rate. LUNGS: Show diminished breath sounds at the base. ABDOMEN: Soft, nontender to palpation without rebound or guarding. EXTREMITIES: Negative for clubbing, cyanosis. Trace edema. DERMATOLOGIC: No rashes. MUSCULOSKELETAL: No joint effusions. NEUROLOGIC: No change in exam. MEDICATIONS: The patient's medications have been reviewed. LABORATORY DATA: Shows sodium 139, potassium 4.1, chloride 99, BUN 23, bicarbonate 33, creatinine 0.70. White count 17.2, hemoglobin 9.6, hematocrit 31.0, platelet count is 203. ASSESSMENT AND PLAN: 1. Ventilator-dependent respiratory failure, etiology secondary to chronic obstructive pulmonary di sease, pneumonia. The patient has failed multiple weaning trials may require trache. Will follow u p with pulmonary for recommendations. Continue current treatment plan with antibiotics, nebulizers, Solu-Medrol. 2. Sepsis secondary to pneumonia, clinically improving. Continue current antibiotic regimen. 3. Leukocytosis secondary to steroids, sepsis. The patient's WBC remains elevated. Continue to mo nitor. 4. Acute encephalopathy secondary to hypercapnia. Continue to monitor. No significant change. 5. Acute diastolic heart failure. The patient is clinically improving. Continue intermittent diur etic therapy. We will give another dose of Diamox. 6. Anemia of chronic disease. Continue to monitor hemoglobin and hematocrit levels. 7. Respiratory acidosis with metabolic compensation. 8. Paroxysmal atrial fibrillation, currently in sinus rhythm. Continue to monitor. 9. Coronary artery disease. Continue current treatment plan. 10. Bipolar disorder. Continue to monitor. 11. Hypertension. Blood pressure well controlled. 12. Dysphagia with an OG tube place. Continue tube feeding. 13. Gastrointestinal and deep venous thrombosis prophylaxis. Continue Protonix and Lovenox. Please note I spent over 40 minutes of critical care time with this patient. Dictated By: RAMY PERRY/ALYSON Conf#: [id number] [facility]#: [id number]
[2016-10-07] MEDS: L ACIDOPHIL/B LACTIS/B LONGUM CAPSULE PO SCH ×2 (08:11→21:01)
[2016-10-07] MEDS: MULTIVITAMINS THERAPEUTIC TAB PO SCH (08:11)
[2016-10-07] MEDS: ASPIRIN 81 MG TAB PO SCH (08:11)
[2016-10-07] MEDS: LORATADINE 10 MG TAB PO SCH (08:11)
[2016-10-07] MEDS: LEVOFLOXACIN 750MG/D5W (PMX) 150 ML IVPB SCH (08:11)
[2016-10-07] MEDS: AMIODARONE 200 MG TAB PO SCH (08:11)
[2016-10-07] MEDS: METOPROLOL 25 MG TAB PO SCH ×2 (08:12→21:03)
[2016-10-07] MEDS: ASCORBIC ACID 500 MG TAB PO SCH (08:12)
[2016-10-07] MEDS: LANSOPRAZOLE 30 MG CAP NGT SCH ×2 (08:12→21:01)
[2016-10-07] MEDS: ARTIFICIAL TEARS 15 ML OPH BOTH EYES SCH ×3 (08:12→21:00)
[2016-10-07] MEDS: ENOXAPARIN 40 MG/0.4 ML SYG SC SCH (08:22)
[2016-10-07] MEDS: LINEZOLID 600 MG/D5W (PMX) 300 ML IVPB SCH ×2 (10:20→21:01)
--- NOTE | 2016-10-07 10:35 | PN ---
DATE: 10/07/2016 CARDIOLOGY FOLLOWUP SUBJECTIVE: Discussed with the staff. Discussed with Dr. Pereira. The patient remains on the vent , unable to be weaned off. He remains in sinus syndrome with no obvious atrial fibrillation. The p atient is nonverbal status post intubation on the vent. MEDICATIONS: Reviewed. PHYSICAL EXAMINATION: VITAL SIGNS: Temperature 98.8, heart rate of 74, blood pressure 118/78, respiration rate of 16, sat urating 100%. GENERAL: Obese gentleman, status post intubation on the vent. HEENT: Normocephalic, atraumatic. Pupils equal and round. CARDIOVASCULAR: Regular rate and rhythm with systolic murmur, grade I. PULMONARY: Appears to be no wheezes with mild rhonchi. GASTROINTESTINAL: Obese, soft, nontender. No rebound or guarding. EXTREMITIES: With positive ankle edema. NEUROLOGIC: He is sedated now. PSYCHIATRIC: Appears to be calm and pleasant. LABORATORY DATA: WBC of 17.2, hemoglobin 9.6, platelets of 203. Sodium 139, potassium 4.1, BUN of 23, creatinine 0.70, glucose 175. ASSESSMENT AND PLAN: 1. Hypoxemia, hypercapnic respiratory failure, status post intubation on the vent. 2. Chronic obstructive pulmonary disease exacerbation. 3. Pneumonia. 4. Hypertension. 5. Fluid overload and congestive heart failure. 6. Paroxysmal atrial fibrillation, currently in sinus rhythm. 7. History of bipolar disorder. RECOMMENDATIONS: Electrolytes including potassium and magnesium will be replaced as needed. We jeffry hendricks put on . Respiratory care will be continued. Supportive care for now. Weaning as tolerated , otherwise, may need to get a tracheostomy. Continue with the ICU care. Dictated By: BRENTON ASVAGE/ALYSON Conf#: [id number] DID#: [id number] CC: RAMY PEREIRA DO;*EndCC*
--- NOTE | 2016-10-07 10:52 | CONS ---
Date/Time of Note Date/Time of Note DATE: 10/07/16 TIME: 10:51 Consult Date/Type/Reason Admit Date/Time Sep 29, 2016 at 09:25 Type of Consultation: Pulmonary/critical care Subjective Patient remains intubated on mechanical ventilation and having failed prior to weaning trials Objective Vital Signs Date Time Temp Pulse Resp B/P Pulse Ox O2 Delivery O2 Flow Rate FiO2 10/07/16 08:30 74 16 118/78 100 10/07/16 08:15 Mechanical Ventilator 10/07/16 08:00 30 10/07/16 07:15 98.8 Intake and Output 10/06/16 10/06/16 10/07/16 15:00 23:00 07:00 Intake Total 980 ml 965 ml 580 ml Output Total 750 ml 850 ml 575 ml Balance 230 ml 115 ml 5 ml Exam PHYSICAL EXAMINATION GENERAL: Elderly gentleman, intubated on mechanical ventilation, opens eyes and appears somewhat agitated. Orally intubated. VITAL SIGNS: see below. HEENT: Pupils equal, round, and reactive to light. CARDIAC: S1, S2, tachycardia. CHEST: Diminished air entry bilaterally. ABDOMEN: Mildly distended. Bowel sounds present no guarding or rebound EXTREMITIES: No cyanosis, clubbing edema +1 NEUROLOGIC: No focal deficits. Results/Medications Result Diagram: 10/07/16 0400 10/07/16 0400 Results 24 hrs Laboratory Tests Test 10/07/16 04:00 White Blood Count 17.2 H Red Blood Count 3.16 L Hemoglobin 9.6 L Hematocrit 31.0 L Mean Corpuscular Volume 98.1 Mean Corpuscular Hemoglobin 30.4 Mean Corpuscular Hemoglobin Concent 31.0 L Red Cell Distribution Width 13.5 Platelet Count 203 Mean Platelet Volume 10.3 Neutrophils % 93.2 H Lymphocytes % 3.3 L Monocytes % 2.9 Eosinophils % 0.0 Basophils % 0.1 Nucleated Red Blood Cells % 0.0 Neutrophils # 16.0 H Lymphocytes # 0.6 L Monocytes # 0.5 Eosinophils # 0.0 Basophils # 0.0 Nucleated Red Blood Cells # 0.0 Sodium Level 139 Potassium Level 4.1 Chloride Level 99 Carbon Dioxide Level 33 H Anion Gap 11 Blood Urea Nitrogen 23 H Creatinine 0.70 Glucose Level 175 Calcium Level 8.4 Medications Current Medications Acetaminophen (Tylenol Tab) 650 mg Q4H PRN PO MILD PAIN LEVEL 1-3 Last administered on 10/01/16 07:58; Admin Dose 650 MG; Start 09/29/16 at 11:00 Acetaminophen (Tylenol Tab) 1,000 mg Q4H PRN PO PAIN LEVEL 4-6/10; Start at 11:00 Amiodarone HCl (Cordarone) 200 mg DAILY PO Last administered on 10/07/16 08:11 ; Admin Dose 200 MG; Start 09/30/16 at 09:00 Ascorbic Acid (Vitamin C) 500 mg DAILY PO Last administered on 10/07/16 08:12 ; Admin Dose 500 MG; Start 09/30/16 at 09:00 Aspirin (Aspirin) 81 mg DAILY PO Last administered on 10/07/16 08:11; Admin Dose 81 MG; Start 09/30/16 at 09:00 Atorvastatin Calcium (Lipitor) 5 mg QHS PO Last administered on 10/06/16 20:44 ; Admin Dose 5 MG; Start 09/29/16 at 21:00 Bisacodyl (Dulcolax Supp) 10 mg DAILY PRN [place] CONSTIPATION; Start 09/29/16 at 11 :00 Docusate Sodium (Colace) 200 mg QHS PRN PO CONSTIPATION; Start 09/29/16 at 11: 00 Loratadine (Claritin) 10 mg DAILY PO Last administered on 10/07/16 08:11; Admin Dose 10 MG; Start 09/30/16 at 09:00 Al Hydrox/Mg Hydrox/Simethicone (Mag-Al Plus) 30 ml Q6H PO Last administered on 10/07/16 05:17; Admin Dose 30 ML; Start 09/29/16 at 11:00 Magnesium Hydroxide (Milk Of Mag) 30 ml DAILY PRN PO CONSTIPATION; Start at 11:00 Metoprolol Tartrate (Lopressor) 25 mg BID PO Last administered on 10/07/16 08: 12; Admin Dose 25 MG; Start 09/29/16 at 21:00 Montelukast Sodium (Singulair) 10 mg QHS PO Last administered on 10/06/16 20: 47; Admin Dose 10 MG; Start 09/29/16 at 21:00 Multivitamins Therapeutic (Theragran) 1 tab DAILY PO Last administered on 08:11; Admin Dose 1 TAB; Start 09/30/16 at 09:00 Sodium Biphosphate/ Sodium Phosphate (Fleet Enema) 118 ml prn PRN [place] CONSTIPATION; Start 09/29/16 at 11:00 Eye Lubricant (Artificial Tears Oph) 1 drop TID BOTH EYES Last administered on 10/07/16 08:12; Admin Dose 1 DROP; Start 09/29/16 at 13:00 Lactobacillus Acidophilus 1 each 1 each BID PO Last administered on 10/07/16 08:11; Admin Dose 1 EACH; Start 09/29/16 at 21:00 Meropenem 100 ml @ 200 mls/hr Q8 IVPB Last administered on 10/07/16 05:17; Admin Dose 200 MLS/HR; Start 09/30/16 at 06:00 Linezolid 300 ml @ 300 mls/hr Q12 IVPB Last administered on 10/07/16 10:20; Admin Dose 300 MLS/HR; Start 09/29/16 at 23:30 Fentanyl 100 ml @ 2.5 mls/hr TITRATE IV Last administered on 10/07/16 02:16; Admin Dose 10 MLS/HR; Start 09/30/16 at 07:00 Midazolam HCl (Versed) 50 ml @ 1 mls/hr TITRATE IV Last administered on 07:45; Admin Dose 10 MLS/HR; Start 09/30/16 at 07:00 Enoxaparin Sodium 40 mg 40 mg DAILY SC Last administered on 10/07/16 08:22; Admin Dose 40 MG; Start 09/30/16 at 09:00 Levofloxacin/ Dextrose (Levaquin 750 Mg/ D5W 150 ml (Pmx)) 150 ml @ 100 mls/hr Q24H IVPB Last administered on 10/07/16 08:11; Admin Dose 100 MLS/HR; Start at 09:30 Lansoprazole (Prevacid) 30 mg BID NGT Last administered on 10/07/16 08:12; Admin Dose 30 MG; Start 09/30/16 at 21:00 Methylprednisolone Sodium Succinate (Solu-Medrol) 60 mg Q8 IV Last administered on 10/07/16 05:16; Admin Dose 60 MG; Start 10/04/16 at 14:00 Assessment/Plan Chief Complaint/Hosp Course Assessment 1. Acute on chronic hypoxemic and hypercapnic respiratory failure 2. Likely obstructive sleep apnea 3. Systolic and diastolic dysfunction 4. Leukocytosis likely secondary to accommodation steroids and aspiration pneumonia Plan 1. Continue mechanical ventilation, repeat CPAP trial this morning 2. Post extubation will require noninvasive positive pressure ventilation 3. Continue broad-spectrum antibiotics 4. Continue steroids 5. DVT and GI prophylaxis Disposition Continue ICU care If patient fails CPAP weaning will require tracheostomy, and we'll discuss with primary care team Critical care time 35 minutes Problems: DEMARIO BROWN [facility] Oct 07, 2016 10:52
[2016-10-07 13:18] LABS: AADO2 Arterial 53.2 mmHg (7.0-24.0); Allen Test ACCEPTAB; Arterial Base Excess 5.5 mmol/L (-3.0-3); Arterial COHb 0.1 % (0.0-3.0); Arterial Fraction of Oxyhgb 91.9 % (93.0-99.0); Arterial HCO3 34.4 mmol/L (22.0-26.0); Arterial MetHb 0.3 % (0.0-1.5); Arterial Total Hemglobin 12.3 g/dl (12.0-18.0); Blood Gas PS 10; MODE VENT - CPAP
--- NOTE | 2016-10-07 15:01 | PN ---
DATE: 10/07/2016 INFECTIOUS DISEASE PROGRESS NOTE SUBJECTIVE: No acute changes. The patient is on CPAP, looks comfortable, no fevers. WBC today 17.2 with neutrophils 93.2, BUN 23, creatinine 0.70. VITAL SIGNS: Temperature 98.9, pulse 92, respirations 16, blood pressure 115/64, saturation 99% on vent. INDWELLINGS: Endotracheal tube, NG tube, Estrella, PICC line placed on 10/06/2016. ANTIMICROBIALS 1. Levaquin. 2. Zyvox. 3. Meropenem day #9. PHYSICAL EXAMINATION: GENERAL: Obese, well-developed middle-aged white male who is lying comfortably in bed. HEENT: Head atraumatic, normocephalic. Sclerae anicteric. Buccal mucosa dry. NECK: Obese. CHEST: Rise symmetrical. Breath sounds diminished to bases. HEART: S1, S2. ABDOMEN: Soft, bowel tones present. EXTREMITIES: Bilateral edema. ASSESSMENT: 1. Acute on chronic respiratory failure. 2. Healthcare-acquired pneumonia, possibly aspiration. 3. Congestive heart failure exacerbation. 4. Anemia. 5. Morbid obesity. 6. History of bipolar disorder. PLAN: The patient remains stable, completing antibiotics. Continue present care, steroid taper, we aning trials per pulmonary. Dictated By: NANCY MOREL APPARATUS REPAIR MECHANIC for ARVIN VERDUZCO/ALYSON Conf#: [id number] DID#: [id number]
[2016-10-07] MEDS: ATORVASTATIN 10 MG TAB PO SCH (21:03)
[2016-10-07] MEDS: MONTELUKAST 10 MG TAB PO SCH (21:18)
[2016-10-08] VITALS (75 sets, daily range): BP systolic 55–151; BP diastolic 36–100; PULSE 63–95; RESP 11–28
[2016-10-08] MEDS: FENTAnyl (DRIP) 1000 mcg/100mL 100 ML IV SCH ×2 (00:09→21:04)
[2016-10-08] MEDS: MIDAZOLAM (DRIP) 50 mg/50 mL 50 ML IV SCH ×5 (01:41→21:05)
[2016-10-08] MEDS: METHYLPREDNISOLONE 125 MG INJ IV SCH ×3 (05:59→21:14)
[2016-10-08] MEDS: AL HYDROX/MG HYDROX/SIMETH 30 ML CUP PO SCH ×4 (05:59→23:53)
[2016-10-08] MEDS: MEROPENEM 500 MG/100 ML (PMX) 100 ML IVPB SCH ×2 (06:05→13:20)
[2016-10-08 06:06] LABS: ADD SCAN DIFF NO
[2016-10-08 06:54] LABS: POTASSIUM 4.4 mmol/L (3.5-5.1)
[2016-10-08 06:57] LABS: CREATININE 0.71 mg/dl (0.61-1.24)
[2016-10-08 06:58] LABS: CALCIUM 8.5 mg/dl (8.4-10.2); MAGNESIUM 2.7 mg/dl (1.7-2.5); PHOSPHORUS 3.3 mg/dl (2.5-4.9)
[2016-10-08] MEDS: ALBUTEROL 18 GM INHALER INH PRN (08:15)
--- NOTE | 2016-10-08 08:42 | PN ---
DATE: 10/08/2016 SUBJECTIVE: The patient has failed multiple weaning trials. The patient has remained hemodynamicall y stable. No other events noted. No hemoptysis, hematemesis or hematochezia. OBJECTIVE: VITAL SIGNS: Blood pressure is 128/87, respirations 16, pulse 66, temperature 98.6. I's AND O'S: The patient had 2.4 L in and 1.7 L out. HEENT: Head is normocephalic. NECK: Supple. HEART: Regular rate. LUNGS: Show diminished breath sounds at the base. Positive rhonchi. ABDOMEN: Obese, soft, nontender to palpation. EXTREMITIES: Negative for clubbing or cyanosis. Positive edema. DERMATOLOGIC: No rashes. MUSCULOSKELETAL: Have no joint effusion. NEUROLOGIC: No change in exam. MEDICATIONS: The patient's medications have been reviewed. LABORATORY DATA: Shows sodium 140, potassium 4.4, chloride 100, BUN 26, creatinine 0.71, magnesium 2.7. The patient's ABG from 10/07/2016 shows a pH of 7.28, pCO2 of 74. CBC is pending. MEDICATIONS: The list of medications have been reviewed. ASSESSMENT AND PLAN: 1. Ventilator dependent respiratory failure. Etiology is secondary to chronic obstructive pulmonar y disease exacerbation, chronic lung disease and pneumonia. The patient has failed multiple weaning trials. May require trach placement. Will follow up with pulmonary. Continue the current medical management with antibiotics, nebulizers, Solu-Medrol. Will defer tapering of the steroids to pulmo nary. 2. Sepsis secondary to pneumonia. Patient is completing an antibiotic course. 3. Leukocytosis secondary to sepsis. Continue to monitor. 4. Acute encephalopathy secondary to hypercapnia. Continue to monitor. No significant change. 5. Acute diastolic heart failure. The patient remains clinically edematous. Will increase Lasix t o 20 mg IV b.i.d. Monitor closely. 6. Anemia of chronic disease. Continue to monitor H and H levels. 7. Respiratory acidosis. The patient also has underlying acidemia, in part due to recent Diamox us e. Will discontinue Diamox and monitor ABGs. 8. Paroxysmal atrial fibrillation. Currently in sinus rhythm. Will continue to monitor. 9. Coronary artery disease. Continue the current medical management. 10. Bipolar disorder. Continue to monitor. 11. Hypertension. Blood pressure controlled. Continue the current treatment plan. 12. Dysphagia. Status post OG tube. Continue tube feedings. 13. Gastrointestinal and deep venous thrombosis prophylaxis. Continue Protonix and Lovenox. Please note, I spent over 40 minutes of critical care time with this patient. Dictated By: RAMY PERRY/ALYSON Conf#: [id number] DID#: [id number]
[2016-10-08] MEDS ORDERED: FUROSEMIDE 20 MG INJ IV SCH (09:00)
[2016-10-08] MEDS: ARTIFICIAL TEARS 15 ML OPH BOTH EYES SCH ×3 (09:04→21:12)
[2016-10-08] MEDS: LEVOFLOXACIN 750MG/D5W (PMX) 150 ML IVPB SCH (09:05)
[2016-10-08] MEDS: LINEZOLID 600 MG/D5W (PMX) 300 ML IVPB SCH (09:05)
[2016-10-08] MEDS: FUROSEMIDE 20 MG INJ IV SCH ×2 (09:06→18:50)
[2016-10-08] MEDS: ASCORBIC ACID 500 MG TAB PO SCH (09:07)
[2016-10-08] MEDS: LORATADINE 10 MG TAB PO SCH (09:07)
[2016-10-08] MEDS: AMIODARONE 200 MG TAB PO SCH (09:07)
[2016-10-08] MEDS: MULTIVITAMINS THERAPEUTIC TAB PO SCH (09:07)
[2016-10-08] MEDS: LANSOPRAZOLE 30 MG CAP NGT SCH ×2 (09:07→21:13)
[2016-10-08] MEDS: L ACIDOPHIL/B LACTIS/B LONGUM CAPSULE PO SCH ×2 (09:07→21:19)
[2016-10-08] MEDS: ASPIRIN 81 MG TAB PO SCH (09:07)
[2016-10-08] MEDS: ENOXAPARIN 40 MG/0.4 ML SYG SC SCH (09:08)
[2016-10-08] MEDS: METOPROLOL 25 MG TAB PO SCH ×2 (09:27→21:12)
--- NOTE | 2016-10-08 09:55 | CONS ---
Date/Time of Note Date/Time of Note DATE: 10/08/16 TIME: 09:52 Consult Date/Type/Reason Admit Date/Time Sep 29, 2016 at 09:25 Type of Consultation: Pulmonary/critical care Subjective Failed CPAP weaning trial yesterday with a pH of 7.28 More alert this morning, continues mechanical ventilation Objective Vital Signs Date Time Temp Pulse Resp B/P Pulse Ox O2 Delivery O2 Flow Rate FiO2 10/08/16 06:30 66 16 128/87 99 Mechanical Ventilator 10/08/16 05:25 30 10/08/16 04:00 97.8 Intake and Output 10/07/16 10/07/16 10/08/16 15:00 23:00 07:00 Intake Total 940.0 ml 930 ml 600 ml Output Total 700 ml 570 ml 510 ml Balance 240.0 ml 360 ml 90 ml Exam PHYSICAL EXAMINATION GENERAL: Elderly gentleman, intubated on mechanical ventilation, opens eyes and appears somewhat agitated. Orally intubated. VITAL SIGNS: see below. HEENT: Pupils equal, round, and reactive to light. CARDIAC: S1, S2, tachycardia. CHEST: Diminished air entry bilaterally. ABDOMEN: Mildly distended. Bowel sounds present no guarding or rebound EXTREMITIES: No cyanosis, clubbing edema +1 NEUROLOGIC: No focal deficits. Results/Medications Result Diagram: 10/07/16 0400 10/08/16 0520 Results 24 hrs Chest x-ray Right lower lobe infiltrate Laboratory Tests Test 10/07/16 13:11 10/08/16 05:20 Blood Gas Specimen Source Blood arterial Arterial Blood Date Drawn 10/07/2016 1:06:23 PM Arterial Blood pH (Temp corrected) 7.284 *L Arterial Blood pCO2 (Temp correct) 74.1 H Arterial Blood pO2 (Temp corrected) 73.6 L Arterial Blood HCO3 34.4 H Arterial Blood Base Excess 5.5 H Arterial Blood Oxygen Saturation 92.3 L Elijah Test ACCEPTAB Arterial Blood Gas Puncture Site Right Radial Arterial Blood Carboxyhemoglobin 0.1 Arterial Blood Methemoglobin 0.3 Blood Gas A-a O2 Differential 53.2 H Oxyhemoglobin Percent 91.9 L Total Hemoglobin 12.3 Blood Gas Temperature 37.0 Blood Gas Actual Respiration Rate 21 Blood Gas Modality VENT - CPAP FiO2 30.0 Blood Gas Low PEEP Setting 5.0 Blood Gas Pressure Support 10 Blood Gas Critical Value Read Back A AMY PABON Blood Gas Notified Whom SUSAND Blood Gas Notified Time 10/07/2016 1:17:10 PM Sodium Level 140 Potassium Level 4.4 Chloride Level 100 Carbon Dioxide Level 31 Anion Gap 13 Blood Urea Nitrogen 26 H Creatinine 0.71 Glucose Level 161 Calcium Level 8.5 Phosphorus Level 3.3 Magnesium Level 2.7 H Medications Current Medications Acetaminophen (Tylenol Tab) 650 mg Q4H PRN PO MILD PAIN LEVEL 1-3 Last administered on 10/01/16 07:58; Admin Dose 650 MG; Start 09/29/16 at 11:00 Acetaminophen (Tylenol Tab) 1,000 mg Q4H PRN PO PAIN LEVEL 4-6/10; Start at 11:00 Amiodarone HCl (Cordarone) 200 mg DAILY PO Last administered on 10/08/16 09:07 ; Admin Dose 200 MG; Start 09/30/16 at 09:00 Ascorbic Acid (Vitamin C) 500 mg DAILY PO Last administered on 10/08/16 09:07 ; Admin Dose 500 MG; Start 09/30/16 at 09:00 Aspirin (Aspirin) 81 mg DAILY PO Last administered on 10/08/16 09:07; Admin Dose 81 MG; Start 09/30/16 at 09:00 Atorvastatin Calcium (Lipitor) 5 mg QHS PO Last administered on 10/07/16 21:03 ; Admin Dose 5 MG; Start 09/29/16 at 21:00 Bisacodyl (Dulcolax Supp) 10 mg DAILY PRN [place] CONSTIPATION; Start 09/29/16 at 11 :00 Docusate Sodium (Colace) 200 mg QHS PRN PO CONSTIPATION; Start 09/29/16 at 11: 00 Loratadine (Claritin) 10 mg DAILY PO Last administered on 10/08/16 09:07; Admin Dose 10 MG; Start 09/30/16 at 09:00 Al Hydrox/Mg Hydrox/Simethicone (Mag-Al Plus) 30 ml Q6H PO Last administered on 10/08/16 05:59; Admin Dose 30 ML; Start 09/29/16 at 11:00 Magnesium Hydroxide (Milk Of Mag) 30 ml DAILY PRN PO CONSTIPATION; Start at 11:00 Metoprolol Tartrate (Lopressor) 25 mg BID PO Last administered on 10/08/16 09: 27; Admin Dose 25 MG; Start 09/29/16 at 21:00 Montelukast Sodium (Singulair) 10 mg QHS PO Last administered on 10/07/16 21: 18; Admin Dose 10 MG; Start 09/29/16 at 21:00 Multivitamins Therapeutic (Theragran) 1 tab DAILY PO Last administered on 09:07; Admin Dose 1 TAB; Start 09/30/16 at 09:00 Sodium Biphosphate/ Sodium Phosphate (Fleet Enema) 118 ml prn PRN [place] CONSTIPATION; Start 09/29/16 at 11:00 Eye Lubricant (Artificial Tears Oph) 1 drop TID BOTH EYES Last administered on 10/08/16 09:04; Admin Dose 1 DROP; Start 09/29/16 at 13:00 Lactobacillus Acidophilus 1 each 1 each BID PO Last administered on 10/08/16 09:07; Admin Dose 1 EACH; Start 09/29/16 at 21:00 Meropenem 100 ml @ 200 mls/hr Q8 IVPB Last administered on 10/08/16 06:05; Admin Dose 200 MLS/HR; Start 09/30/16 at 06:00 Linezolid 300 ml @ 300 mls/hr Q12 IVPB Last administered on 10/08/16 09:05; Admin Dose 300 MLS/HR; Start 09/29/16 at 23:30 Fentanyl 100 ml @ 2.5 mls/hr TITRATE IV Last administered on 10/08/16 00:09; Admin Dose 2.5 MLS/HR; Start 09/30/16 at 07:00 Midazolam HCl (Versed) 50 ml @ 1 mls/hr TITRATE IV Last administered on 06:52; Admin Dose 10 MLS/HR; Start 09/30/16 at 07:00 Enoxaparin Sodium 40 mg 40 mg DAILY SC Last administered on 10/08/16 09:08; Admin Dose 40 MG; Start 09/30/16 at 09:00 Levofloxacin/ Dextrose (Levaquin 750 Mg/ D5W 150 ml (Pmx)) 150 ml @ 100 mls/hr Q24H IVPB Last administered on 10/08/16 09:05; Admin Dose 100 MLS/HR; Start at 09:30 Lansoprazole (Prevacid) 30 mg BID NGT Last administered on 10/08/16 09:07; Admin Dose 30 MG; Start 09/30/16 at 21:00 Methylprednisolone Sodium Succinate (Solu-Medrol) 60 mg Q8 IV Last administered on 10/08/16 05:59; Admin Dose 60 MG; Start 10/04/16 at 14:00 Assessment/Plan Chief Complaint/Hosp Course Assessment 1. Acute on chronic hypoxemic and hypercapnic respiratory failure, failed several weaning trials 2. Likely obstructive sleep apnea 3. Systolic and diastolic dysfunction 4. Leukocytosis likely secondary to accommodation steroids and aspiration pneumonia Plan 1. Continue mechanical ventilation, repeat CPAP trial this morning 2. Post extubation will require noninvasive positive pressure ventilation 3. Continue broad-spectrum antibiotics 4. Continue steroids 5. DVT and GI prophylaxis Disposition Continue ICU care if failed CPAP trial patient will likely require tracheostomy Critical care time 35 minutes Problems: DEMARIO BROWN MD, [facility] Oct 08, 2016 09:55
[2016-10-08 12:40] LABS: AADO2 Arterial 90.4 mmHg (7.0-24.0); Allen Test ACCEPTAB; Arterial Base Excess 6.5 mmol/L (-3.0-3); Arterial COHb 0.4 % (0.0-3.0); Arterial Fraction of Oxyhgb 96.2 % (93.0-99.0); Arterial HCO3 36.2 mmol/L (22.0-26.0); Arterial MetHb 0.4 % (0.0-1.5); Arterial Total Hemglobin 13.4 g/dl (12.0-18.0); Blood Gas PS 10; MODE MASK - CPAP
[2016-10-08 12:58] LABS: ABNORMAL IP MESSAGE 1; HEMATOCRIT 32.9 % (42.0-52.0); MEAN CORPUSCULAR HGB CONC 30.4 g/dl (32.0-37.0); MEAN CORPUSCULAR VOLUME 101.9 fl (82.0-101.0); MEAN PLATELET VOLUME 10.6 fl (7.4-10.4); PLATELET COUNT 210 10^3/UL (140-415); RED BLOOD COUNT 3.23 10^6/ul (4.70-6.10); RED CELL DISTRIBUTION WIDTH 13.6 % (11.5-14.5); WHITE BLOOD COUNT 15.2 10^3/ul (4.8-10.8)
[2016-10-08 14:40] LABS: ANISOCYTOSIS 1+; LYMPHOCYTES # 0.3 10^3/ul (0.8-2.9); MONOCYTE # 0.6 10^3/ul (0.3-0.9); NEUTROPHIL # 13.4 10^3/ul (1.6-7.5)
[2016-10-08 14:41] LABS: HYPOCHROMASIA 1+
--- NOTE | 2016-10-08 16:37 | PN ---
DATE: 10/08/2016 CARDIOLOGY FOLLOWUP SUBJECTIVE: Discussed with the staff. Rhythm strip was reviewed. The patient remains in sinus rhy thm. No more episodes of atrial fibrillation. Has failed weaning again. He remains intubated on t he vent. MEDICATIONS: Reviewed. PHYSICAL EXAMINATION: VITAL SIGNS: Temperature 98.9, heart rate of 82, blood pressure of 120/86, respiratory rate of 19, saturating 95%. HEENT: Normocephalic, atraumatic. Obese gentleman. Pupils are equal. Status post intubation on t he vent. CARDIOVASCULAR: Regular rate and rhythm with systolic murmur. PULMONARY: Anteriorly with no wheezes. Minimal rhonchi, diffuse. GASTROINTESTINAL: Obese, soft, nontender. EXTREMITIES: Trivial edema. NEUROLOGIC: Awake, sedated. LABORATORY DATA: WBC of 15.2, hemoglobin 10.0, platelets of 210. Sodium 140, potassium 4.4, BUN 26 , creatinine 0.71, glucose 161. ABG shows pH of 7.24, pCO2 of 79, pO2 of 102. ASSESSMENT AND PLAN: 1. Acute hypoxemic, hypercapnic respiratory failure, status post intubation, difficult to wean ____ _. 2. Likely obstructive sleep apnea. 3. History of paroxysmal atrial fibrillation, currently in sinus rhythm. 4. Congestive heart failure and fluid overload secondary to diastolic dysfunction. 5. Pneumonia. 6. History of psychiatric disorder and bipolar disorder. RECOMMENDATIONS: Continue supportive care and vent support. Diuresis as tolerated as per renal and pulmonary. Electrolytes will be corrected. Currently, remains in sinus rhythm. Aspirin will be c ontinued. Continue ICU care. Dictated By: BRENTON SAVAGE/ALYSON Conf#: [id number] DID#: [id number] CC: RAMY DOMINGUEZ DO;*EndCC*
--- NOTE | 2016-10-08 17:23 | PN ---
DATE: 10/08/2016 SUBJECTIVE: No events. The patient is lying comfortably in bed. He is awake, trying to communicat e. No fevers. VITAL SIGNS: Temperature 98.9, pulse 85, respirations 19, blood pressure 120/86, saturation 95 on v ent. WBC 16.2, H and H 10 and 32.9, platelets 210, bands 6, BUN 26, creatinine 0.71. MICROBIOLOGY: Cultures have been negative. ANTIMICROBIALS: The patient is on: 1. Levaquin. 2. Vancomycin. 3. Zyvox. 4. Meropenem, day #10. INDWELLINGS: Endotracheal tube, NG tube, Estrella, PICC line placed on 10/06/2016. PHYSICAL EXAMINATION: GENERAL: This is a morbidly obese, middle-aged white man who is lying comfortably in bed. HEENT: Head atraumatic, normocephalic. Sclerae anicteric. Buccal mucosa dry. NECK: Obese. CHEST: Rise symmetrical. Breath sounds diminished to bases. HEART: S1, S2. ABDOMEN: Obese, soft, bowel tones present. EXTREMITIES: No cyanosis. ASSESSMENT: 1. Acute respiratory failure. 2. Healthcare-associated pneumonia, possibly aspiration. 3. Congestive heart failure exacerbation. 4. Morbid obesity. 5. History of bipolar disorder. PLAN: The patient remains stable. He failed several weaning trials and is currently on CPAP. Cult ures have been negative. We are going to discontinue Zyvox and Merrem and keep him on Levaquin for now. Dictated By: NANCY MOREL [employer] ATTORNEY for ARVIN VERDUZCO/ALYSON Conf#: [id number] DID#: [id number]
[2016-10-08] MEDS: MONTELUKAST 10 MG TAB PO SCH (21:13)
[2016-10-08] MEDS: ATORVASTATIN 10 MG TAB PO SCH (21:13)
[2016-10-09] VITALS (37 sets, daily range): BP systolic 98–126; BP diastolic 69–92; PULSE 62–78; RESP 11–18
[2016-10-09] MEDS: MIDAZOLAM (DRIP) 50 mg/50 mL 50 ML IV SCH ×5 (02:17→21:53)
[2016-10-09 05:24] LABS: ADD SCAN DIFF NO
[2016-10-09 05:36] LABS: ABNORMAL IP MESSAGE 1; BASOPHILS % 0.1 % (0.0-2.0); HEMATOCRIT 33.8 % (42.0-52.0); HEMOGLOBIN 10.4 g/dl (14.0-18.0); LYMPHOCYTES # 0.4 10^3/ul (0.8-2.9); LYMPHOCYTES % 2.9 % (15.0-51.0); MEAN CORPUSCULAR HEMOGLOBIN 30.4 pg (29.0-33.0); MEAN CORPUSCULAR HGB CONC 30.8 g/dl (32.0-37.0); MEAN CORPUSCULAR VOLUME 98.8 fl (82.0-101.0); MONOCYTE # 0.4 10^3/ul (0.3-0.9); MONOCYTES % 3.3 % (0.0-11.0); NEUTROPHIL # 12.2 10^3/ul (1.6-7.5); NEUTROPHILS % 93.2 % (39.0-77.0); PLATELET COUNT 195 10^3/UL (140-415); RED BLOOD COUNT 3.42 10^6/ul (4.70-6.10); RED CELL DISTRIBUTION WIDTH 13.3 % (11.5-14.5); WHITE BLOOD COUNT 13.1 10^3/ul (4.8-10.8)
[2016-10-09] MEDS: METHYLPREDNISOLONE 125 MG INJ IV SCH ×3 (05:37→23:13)
[2016-10-09] MEDS: FUROSEMIDE 20 MG INJ IV SCH (05:37)
[2016-10-09] MEDS: AL HYDROX/MG HYDROX/SIMETH 30 ML CUP PO SCH ×4 (05:37→23:13)
[2016-10-09 05:45] LABS: POTASSIUM 4.2 mmol/L (3.5-5.1)
[2016-10-09 05:47] LABS: CREATININE 0.72 mg/dl (0.61-1.24)
[2016-10-09 05:48] LABS: CALCIUM 8.8 mg/dl (8.4-10.2); PHOSPHORUS 3.4 mg/dl (2.5-4.9)
[2016-10-09 05:49] LABS: MAGNESIUM 2.7 mg/dl (1.7-2.5)
[2016-10-09] MEDS: FENTAnyl (DRIP) 1000 mcg/100mL 100 ML IV SCH ×3 (07:42→23:18)
--- NOTE | 2016-10-09 08:39 | CONS ---
Date/Time of Note Date/Time of Note DATE: 10/09/16 TIME: 08:38 Assessment/Plan Assessment/Plan Chief Complaint/Hosp Course ID PROGRESS NOTE TOTAL ABX DAY # 12 => 1. Levaquin. s/p Zyvox/Merrem > DC'10/08/16 24H INTERVAL SUMMARY * Noncommunicative/Vented, looks comfortable, morbid obese, VSS * Chart reviewed = no fevers, WBC downtrend, renal Fx stable over 3 days * CXR: IMPRESSION: 1. Findings suggesting interstitial edema with small bilateral pleural effusions. Lung aeration is improved when compared to the prior examination. 2. Mild cardiomegaly and aortic atherosclerosis. 3. Tubes and lines, as described above. 10/09/16 0430 10/09/16 0430 PHYSICAL EXAMINATION: GENERAL: VSS, NAD -> Morbid obese M, no fevers HEENT: ETT/OGT secure NECK: Supple, trach-> midline CHEST: Equal chest rise bilaterally, without dyspnea on observation / Vented HEART: Pulse RRR - NSR on tele ABDOMEN: Soft, obese EXTREMITIES: Warm w/generalized dependent edema SKIN: Warm, dry ID ASSESSMENT: 56 yo obese M w/PMHx Psych-Bipolar, substance abuse (crack) admitted with: 1. Acute hypoxic respiratory failure -> Failed BIPAP, intubated 2. Healthcare-associated pneumonia, (+)aspiration PNA risk factors 3. Congestive heart failure exacerbation. 4. Suspect obesity hypoventilation syndrome vs FAY 5. Possible underlying COPD 6. ?GERD INVASIVES: * ETT, OGT, FC, PICC->10/06/16 ABX ALLERGIES: Vanco IV CURRENT ABX: TOTAL ABX DAY # 12 => Levaquin. s/p Zyvox/Merrem > DC'10/08/16 ID RECOMMENDATIONS: 1. Continue current ABX taper over the weekend and monitor clinical status 2. Watch renal fx on Diuretics, Watch WBC on IV steroids . . Problems: Consultation Date/Type/Reason Admit Date/Time Sep 29, 2016 at 09:25 Initial Consult Date Type of Consultation: ID Exam/Review of Systems Vital Signs Vitals Vital Signs Date Time Temp Pulse Resp B/P Pulse Ox O2 Delivery O2 Flow Rate FiO2 10/09/16 06:00 69 16 124/86 94 Mechanical Ventilator 10/09/16 05:20 30 10/09/16 04:00 98.8 Intake and Output 10/08/16 10/08/16 10/09/16 15:00 23:00 07:00 Intake Total 675 ml 410 ml 550 ml Output Total 1275 ml 1575 ml 550 ml Balance -600 ml -1165 ml 0 ml Results Result Diagram: 10/09/16 0430 10/09/16 0430 Results 24 hrs Laboratory Tests Test 10/08/16 11:52 10/09/16 04:30 Blood Gas Specimen Source Blood arterial Arterial Blood Date Drawn 10/08/2016 12:00:04 PM Arterial Blood pH (Temp corrected) 7.274 *L Arterial Blood pCO2 (Temp correct) 79.9 H Arterial Blood pO2 (Temp corrected) 102.9 H Arterial Blood HCO3 36.2 H Arterial Blood Base Excess 6.5 H Arterial Blood Oxygen Saturation 97.0 Elijah Test ACCEPTAB Arterial Blood Gas Puncture Site Right Radial Arterial Blood Carboxyhemoglobin 0.4 Arterial Blood Methemoglobin 0.4 Blood Gas A-a O2 Differential 90.4 H Oxyhemoglobin Percent 96.2 Total Hemoglobin 13.4 Blood Gas Temperature 37.0 Blood Gas Actual Respiration Rate 18 Blood Gas Modality MASK - CPAP FiO2 40.0 Blood Gas Low PEEP Setting 5.0 Blood Gas Pressure Support 10 Blood Gas Critical Value Read Back Moy SCHMID RN Blood Gas Notified Whom JLD Blood Gas Notified Time 10/08/2016 12:39:53 PM White Blood Count 13.1 H Red Blood Count 3.42 L Hemoglobin 10.4 L Hematocrit 33.8 L Mean Corpuscular Volume 98.8 Mean Corpuscular Hemoglobin 30.4 Mean Corpuscular Hemoglobin Concent 30.8 L Red Cell Distribution Width 13.3 Platelet Count 195 Mean Platelet Volume 10.0 Neutrophils % 93.2 H Lymphocytes % 2.9 L Monocytes % 3.3 Eosinophils % 0.0 Basophils % 0.1 Nucleated Red Blood Cells % 0.0 Neutrophils # 12.2 H Lymphocytes # 0.4 L Monocytes # 0.4 Eosinophils # 0.0 Basophils # 0.0 Nucleated Red Blood Cells # 0.0 Sodium Level 142 Potassium Level 4.2 Chloride Level 98 Carbon Dioxide Level 36 H Anion Gap 12 Blood Urea Nitrogen 34 H Creatinine 0.72 Glucose Level 185 Calcium Level 8.8 Phosphorus Level 3.4 Magnesium Level 2.7 H Medications Medications Current Medications Acetaminophen (Tylenol Tab) 650 mg Q4H PRN PO MILD PAIN LEVEL 1-3 Last administered on 10/01/16 07:58; Admin Dose 650 MG; Start 09/29/16 at 11:00 Acetaminophen (Tylenol Tab) 1,000 mg Q4H PRN PO PAIN LEVEL 4-6/10; Start at 11:00 Amiodarone HCl (Cordarone) 200 mg DAILY PO Last administered on 10/08/16 09:07 ; Admin Dose 200 MG; Start 09/30/16 at 09:00 Ascorbic Acid (Vitamin C) 500 mg DAILY PO Last administered on 10/08/16 09:07 ; Admin Dose 500 MG; Start 09/30/16 at 09:00 Aspirin (Aspirin) 81 mg DAILY PO Last administered on 10/08/16 09:07; Admin Dose 81 MG; Start 09/30/16 at 09:00 Atorvastatin Calcium (Lipitor) 5 mg QHS PO Last administered on 10/08/16 21:13 ; Admin Dose 5 MG; Start 09/29/16 at 21:00 Bisacodyl (Dulcolax Supp) 10 mg DAILY PRN [place] CONSTIPATION; Start 09/29/16 at 11 :00 Docusate Sodium (Colace) 200 mg QHS PRN PO CONSTIPATION; Start 09/29/16 at 11: 00 Loratadine (Claritin) 10 mg DAILY PO Last administered on 10/08/16 09:07; Admin Dose 10 MG; Start 09/30/16 at 09:00 Al Hydrox/Mg Hydrox/Simethicone (Mag-Al Plus) 30 ml Q6H PO Last administered on 10/09/16 05:37; Admin Dose 30 ML; Start 09/29/16 at 11:00 Magnesium Hydroxide (Milk Of Mag) 30 ml DAILY PRN PO CONSTIPATION; Start at 11:00 Metoprolol Tartrate (Lopressor) 25 mg BID PO Last administered on 10/08/16 21: 12; Admin Dose 25 MG; Start 09/29/16 at 21:00 Montelukast Sodium (Singulair) 10 mg QHS PO Last administered on 10/08/16 21: 13; Admin Dose 10 MG; Start 09/29/16 at 21:00 Multivitamins Therapeutic (Theragran) 1 tab DAILY PO Last administered on 09:07; Admin Dose 1 TAB; Start 09/30/16 at 09:00 Sodium Biphosphate/ Sodium Phosphate (Fleet Enema) 118 ml prn PRN [place] CONSTIPATION; Start 09/29/16 at 11:00 Eye Lubricant (Artificial Tears Oph) 1 drop TID BOTH EYES Last administered on 10/08/16 21:12; Admin Dose 1 DROP; Start 09/29/16 at 13:00 Lactobacillus Acidophilus 1 each 1 each BID PO Last administered on 10/08/16 21:19; Admin Dose 1 EACH; Start 09/29/16 at 21:00 Fentanyl 100 ml @ 2.5 mls/hr TITRATE IV Last administered on 10/09/16 07:42; Admin Dose 10 MLS/HR; Start 09/30/16 at 07:00 Midazolam HCl (Versed) 50 ml @ 1 mls/hr TITRATE IV Last administered on 07:43; Admin Dose 10 MLS/HR; Start 09/30/16 at 07:00 Enoxaparin Sodium 40 mg 40 mg DAILY SC Last administered on 10/08/16 09:08; Admin Dose 40 MG; Start 09/30/16 at 09:00 Levofloxacin/ Dextrose (Levaquin 750 Mg/ D5W 150 ml (Pmx)) 150 ml @ 100 mls/hr Q24H IVPB Last administered on 10/08/16 09:05; Admin Dose 100 MLS/HR; Start at 09:30 Lansoprazole (Prevacid) 30 mg BID NGT Last administered on 10/08/16 21:13; Admin Dose 30 MG; Start 09/30/16 at 21:00 Methylprednisolone Sodium Succinate (Solu-Medrol) 60 mg Q8 IV Last administered on 10/09/16 05:37; Admin Dose 60 MG; Start 10/04/16 at 14:00 Lorazepam (Ativan) 0.5 mg Q8H PRN IV anxiety; Start 10/09/16 at 08:00 RAUL GOMEZ NP Oct 09, 2016 08:39
--- NOTE | 2016-10-09 08:47 | PN ---
DATE: 10/09/2016 SUBJECTIVE: The patient remains critical, but stable, on full ventilatory support. No other events noted. No hemoptysis, hematemesis or hematochezia. OBJECTIVE: VITAL SIGNS: Blood pressure 124/86, respirations 16, pulse 69, temperature 98.8. I's AND O'S: The patient had 1.6 liters in, 3.4 liters out. HEENT: Head is normocephalic. NECK: Supple. HEART: Regular rate. LUNGS: Showed diminished breath sounds at the base. ABDOMEN: Soft, nontender to palpation. No rebound or guarding. EXTREMITIES: Negative for clubbing or cyanosis. The patient has lower extremity and upper extremit y edema. DERMATOLOGIC: No rashes. MUSCULOSKELETAL: Have no joint effusion. NEUROLOGIC: No change in exam. DERMATOLOGIC: No rashes. LABORATORY DATA: Shows sodium 142, potassium 4.2, chloride 98, BUN 34, creatinine 0.72, magnesium 2 .7. White count 13.1, hemoglobin is 10.4, hematocrit 33.8, platelet count is 195. ASSESSMENT AND PLAN: 1. Ventilator-dependent respiratory failure. Etiology is secondary to COPD exacerbation, chronic erasmo ng disease and pneumonia. The patient has failed multiple weaning trials. Might consider trach linh cement. Continue the current medical management. Continue antibiotics and nebulizers. Continue So erasmo-Medrol. Follow up with pulmonary. 2. Sepsis secondary to pneumonia. Patient is completing an antibiotic course. 3. Leukocytosis. Improving. Continue to monitor. 4. Acute encephalopathy secondary to hypercapnia. Continue to monitor. No significant change. 5. Acute diastolic heart failure. The patient remains edematous. Will increase Lasix to 40 mg b.i .d. 6. Anemia. Continue to monitor hemoglobin and hematocrit levels. 7. Respiratory acidosis with metabolic compensation. Will continue to monitor. 8. Paroxysmal atrial fibrillation. Currently in sinus rhythm. Continue medical management. 9. Coronary artery disease. Continue the current treatment plan 10. Bipolar disorder. Continue to monitor. Will give Ativan p.r.n. 11. Hypertension. Continue the current blood pressure regimen. 12. Dysphagia. Continue tube feedings. 13. Gastrointestinal and deep vein thrombosis prophylaxis. Continue Protonix and Lovenox. Please note, I spent over 40 minutes of critical care time with this patient. Dictated By: RAMY PERRY/NTS Conf#: [id number] DID#: [id number]
[2016-10-09] MEDS: ASCORBIC ACID 500 MG TAB PO SCH (09:14)
[2016-10-09] MEDS: LANSOPRAZOLE 30 MG CAP NGT SCH ×2 (09:14→20:51)
[2016-10-09] MEDS: LORATADINE 10 MG TAB PO SCH (09:14)
[2016-10-09] MEDS: ARTIFICIAL TEARS 15 ML OPH BOTH EYES SCH ×3 (09:14→20:50)
[2016-10-09] MEDS: METOPROLOL 25 MG TAB PO SCH ×2 (09:15→20:52)
[2016-10-09] MEDS: MULTIVITAMINS THERAPEUTIC TAB PO SCH (09:15)
[2016-10-09] MEDS: ASPIRIN 81 MG TAB PO SCH (09:15)
[2016-10-09] MEDS: AMIODARONE 200 MG TAB PO SCH (09:15)
[2016-10-09] MEDS: LEVOFLOXACIN 750MG/D5W (PMX) 150 ML IVPB SCH (09:16)
[2016-10-09] MEDS: ENOXAPARIN 40 MG/0.4 ML SYG SC SCH (09:17)
[2016-10-09] MEDS: L ACIDOPHIL/B LACTIS/B LONGUM CAPSULE PO SCH ×2 (09:24→20:54)
--- NOTE | 2016-10-09 10:13 | RADRPT ---
PROCEDURE: XR Chest. CLINICAL INDICATION: Pneumonia CHF TECHNIQUE: An AP view of the chest was obtained. COMPARISON: Chest x-ray dated 10/06/2016 FINDINGS: The endotracheal tube tip is approximately 3.8 cm above the vidhi. The tip of the enteric tube ex tends below the left diaphragm. There is a right upper extremity PICC line with tip in the mid SVC. There is prominence of the interstitial markings with small bilateral pleural effusions. No pneumo thorax is seen. The cardiomediastinal silhouette is mildly enlarged . Calcifications are seen with in the aortic arch. The osseous structures are unremarkable. IMPRESSION: 1. Findings suggesting interstitial edema with small bilateral pleural effusions. Lung aeration is improved when compared to the prior examination. 2. Mild cardiomegaly and aortic atherosclerosis. 3. Tubes and lines, as described above. RPTAT: HH .Lyn Smith MD, MD Date Time Electronically viewed and signed by .Lyn Smith MD, on 10/09/2016 10:13 .G/
--- NOTE | 2016-10-09 11:56 | CONS ---
Date/Time of Note Date/Time of Note DATE: 10/09/16 TIME: 11:51 Consult Date/Type/Reason Admit Date/Time Sep 29, 2016 at 09:25 Type of Consultation: Pulm/CCM Subjective Sedated yet arousable on vent Objective Vital Signs Date Time Temp Pulse Resp B/P Pulse Ox O2 Delivery O2 Flow Rate FiO2 10/09/16 08:00 Bag Valve Mask 10/09/16 08:00 30 10/09/16 08:00 73 10/09/16 06:00 16 124/86 94 10/09/16 04:00 98.8 Intake and Output 10/08/16 10/08/16 10/09/16 15:00 23:00 07:00 Intake Total 675 ml 410 ml 550 ml Output Total 1275 ml 1575 ml 550 ml Balance -600 ml -1165 ml 0 ml Exam HEENT: Pupils equal, round, and reactive to light. CARDIAC: S1, S2, tachycardia. CHEST: Diminished air entry bilaterally. ABDOMEN: Mildly distended. Bowel sounds present no guarding or rebound EXTREMITIES: No cyanosis, clubbing edema +1 Results/Medications Result Diagram: 10/09/16 0430 10/09/16 0430 Results 24 hrs Laboratory Tests Test 10/08/16 11:52 10/09/16 04:30 Blood Gas Specimen Source Blood arterial Arterial Blood Date Drawn 10/08/2016 12:00:04 PM Arterial Blood pH (Temp corrected) 7.274 *L Arterial Blood pCO2 (Temp correct) 79.9 H Arterial Blood pO2 (Temp corrected) 102.9 H Arterial Blood HCO3 36.2 H Arterial Blood Base Excess 6.5 H Arterial Blood Oxygen Saturation 97.0 Elijah Test ACCEPTAB Arterial Blood Gas Puncture Site Right Radial Arterial Blood Carboxyhemoglobin 0.4 Arterial Blood Methemoglobin 0.4 Blood Gas A-a O2 Differential 90.4 H Oxyhemoglobin Percent 96.2 Total Hemoglobin 13.4 Blood Gas Temperature 37.0 Blood Gas Actual Respiration Rate 18 Blood Gas Modality MASK - CPAP FiO2 40.0 Blood Gas Low PEEP Setting 5.0 Blood Gas Pressure Support 10 Blood Gas Critical Value Read Back K SHARMAINE RN Blood Gas Notified Whom JLD Blood Gas Notified Time 10/08/2016 12:39:53 PM White Blood Count 13.1 H Red Blood Count 3.42 L Hemoglobin 10.4 L Hematocrit 33.8 L Mean Corpuscular Volume 98.8 Mean Corpuscular Hemoglobin 30.4 Mean Corpuscular Hemoglobin Concent 30.8 L Red Cell Distribution Width 13.3 Platelet Count 195 Mean Platelet Volume 10.0 Neutrophils % 93.2 H Lymphocytes % 2.9 L Monocytes % 3.3 Eosinophils % 0.0 Basophils % 0.1 Nucleated Red Blood Cells % 0.0 Neutrophils # 12.2 H Lymphocytes # 0.4 L Monocytes # 0.4 Eosinophils # 0.0 Basophils # 0.0 Nucleated Red Blood Cells # 0.0 Sodium Level 142 Potassium Level 4.2 Chloride Level 98 Carbon Dioxide Level 36 H Anion Gap 12 Blood Urea Nitrogen 34 H Creatinine 0.72 Glucose Level 185 Calcium Level 8.8 Phosphorus Level 3.4 Magnesium Level 2.7 H Medications Current Medications Acetaminophen (Tylenol Tab) 650 mg Q4H PRN PO MILD PAIN LEVEL 1-3 Last administered on 10/01/16 07:58; Admin Dose 650 MG; Start 09/29/16 at 11:00 Acetaminophen (Tylenol Tab) 1,000 mg Q4H PRN PO PAIN LEVEL 4-6/10; Start at 11:00 Amiodarone HCl (Cordarone) 200 mg DAILY PO Last administered on 10/09/16 09:15 ; Admin Dose 200 MG; Start 09/30/16 at 09:00 Ascorbic Acid (Vitamin C) 500 mg DAILY PO Last administered on 10/09/16 09:14 ; Admin Dose 500 MG; Start 09/30/16 at 09:00 Aspirin (Aspirin) 81 mg DAILY PO Last administered on 10/09/16 09:15; Admin Dose 81 MG; Start 09/30/16 at 09:00 Atorvastatin Calcium (Lipitor) 5 mg QHS PO Last administered on 10/08/16 21:13 ; Admin Dose 5 MG; Start 09/29/16 at 21:00 Bisacodyl (Dulcolax Supp) 10 mg DAILY PRN [place] CONSTIPATION; Start 09/29/16 at 11 :00 Docusate Sodium (Colace) 200 mg QHS PRN PO CONSTIPATION; Start 09/29/16 at 11: 00 Loratadine (Claritin) 10 mg DAILY PO Last administered on 10/09/16 09:14; Admin Dose 10 MG; Start 09/30/16 at 09:00 Al Hydrox/Mg Hydrox/Simethicone (Mag-Al Plus) 30 ml Q6H PO Last administered on 10/09/16 05:37; Admin Dose 30 ML; Start 09/29/16 at 11:00 Magnesium Hydroxide (Milk Of Mag) 30 ml DAILY PRN PO CONSTIPATION; Start at 11:00 Metoprolol Tartrate (Lopressor) 25 mg BID PO Last administered on 10/09/16 09: 15; Admin Dose 25 MG; Start 09/29/16 at 21:00 Montelukast Sodium (Singulair) 10 mg QHS PO Last administered on 10/08/16 21: 13; Admin Dose 10 MG; Start 09/29/16 at 21:00 Multivitamins Therapeutic (Theragran) 1 tab DAILY PO Last administered on 09:15; Admin Dose 1 TAB; Start 09/30/16 at 09:00 Sodium Biphosphate/ Sodium Phosphate (Fleet Enema) 118 ml prn PRN [place] CONSTIPATION; Start 09/29/16 at 11:00 Eye Lubricant (Artificial Tears Oph) 1 drop TID BOTH EYES Last administered on 10/09/16 09:14; Admin Dose 1 DROP; Start 09/29/16 at 13:00 Lactobacillus Acidophilus 1 each 1 each BID PO Last administered on 10/09/16 09:24; Admin Dose 1 EACH; Start 09/29/16 at 21:00 Fentanyl 100 ml @ 2.5 mls/hr TITRATE IV Last administered on 10/09/16 07:42; Admin Dose 10 MLS/HR; Start 09/30/16 at 07:00 Midazolam HCl (Versed) 50 ml @ 1 mls/hr TITRATE IV Last administered on 07:43; Admin Dose 10 MLS/HR; Start 09/30/16 at 07:00 Enoxaparin Sodium 40 mg 40 mg DAILY SC Last administered on 10/09/16 09:17; Admin Dose 40 MG; Start 09/30/16 at 09:00 Levofloxacin/ Dextrose (Levaquin 750 Mg/ D5W 150 ml (Pmx)) 150 ml @ 100 mls/hr Q24H IVPB Last administered on 10/09/16 09:16; Admin Dose 100 MLS/HR; Start at 09:30 Lansoprazole (Prevacid) 30 mg BID NGT Last administered on 10/09/16 09:14; Admin Dose 30 MG; Start 09/30/16 at 21:00 Methylprednisolone Sodium Succinate (Solu-Medrol) 60 mg Q8 IV Last administered on 10/09/16 05:37; Admin Dose 60 MG; Start 10/04/16 at 14:00 Lorazepam (Ativan) 0.5 mg Q8H PRN IV anxiety; Start 10/09/16 at 08:00 Assessment/Plan Additional Assessment/Plan IMP: 1. Acute on chronic hypoxemic and hypercapnic respiratory failure--s/p failed several weaning trials 2. Likely obstructive sleep apnea 3. Systolic and diastolic dysfunction 4. Leukocytosis likely secondary to accommodation steroids and aspiration pneumonia RECS: 1. Continue mechanical ventilation, CPAP/PS tomorrow am 2. Post extubation will require noninvasive positive pressure ventilation 3. Continue broad-spectrum antibiotics 4. Continue steroids 5. DVT and GI prophylaxis 6. TF/Free H2O Continue ICU care if failed CPAP trial patient will likely require tracheostomy Critical care time 35 minutes EVONNE PICKERING MD Oct 09, 2016 11:56
[2016-10-09 16:06] LABS: AADO2 Arterial 48.6 mmHg (7.0-24.0); Allen Test ACCEPTAB; Arterial Base Excess 9.6 mmol/L (-3.0-3); Arterial COHb 0.3 % (0.0-3.0); Arterial Fraction of Oxyhgb 96.2 % (93.0-99.0); Arterial HCO3 35.7 mmol/L (22.0-26.0); Arterial MetHb 0.3 % (0.0-1.5); Arterial Total Hemglobin 10.7 g/dl (12.0-18.0); MODE VENT - AC
[2016-10-09] MEDS: FUROSEMIDE 40 MG INJ IV SCH (17:57)
[2016-10-09] MEDS: ATORVASTATIN 10 MG TAB PO SCH (20:50)
[2016-10-09] MEDS: MONTELUKAST 10 MG TAB PO SCH (20:51)
[2016-10-10] VITALS (35 sets, daily range): BP systolic 103–128; BP diastolic 67–96; PULSE 63–86; RESP 13–18
[2016-10-10] MEDS: ACETAMINOPHEN 325 MG TAB PO PRN (01:39)
[2016-10-10] MEDS: MIDAZOLAM (DRIP) 50 mg/50 mL 50 ML IV SCH ×4 (02:34→21:11)
[2016-10-10 04:58] LABS: ADD SCAN DIFF NO
[2016-10-10] MEDS: AL HYDROX/MG HYDROX/SIMETH 30 ML CUP PO SCH ×3 (05:10→16:37)
[2016-10-10] MEDS: METHYLPREDNISOLONE 125 MG INJ IV SCH ×2 (05:10→20:21)
[2016-10-10] MEDS: FUROSEMIDE 40 MG INJ IV SCH ×2 (05:10→17:54)
[2016-10-10 05:17] LABS: POTASSIUM 4.2 mmol/L (3.5-5.1)
[2016-10-10 05:20] LABS: CREATININE 0.68 mg/dl (0.61-1.24)
[2016-10-10 05:21] LABS: CALCIUM 8.6 mg/dl (8.4-10.2); MAGNESIUM 2.8 mg/dl (1.7-2.5); PHOSPHORUS 4.1 mg/dl (2.5-4.9)
[2016-10-10 05:31] LABS: ABNORMAL IP MESSAGE 1; BASOPHILS % 0.1 % (0.0-2.0); HEMATOCRIT 35.1 % (42.0-52.0); HEMOGLOBIN 10.6 g/dl (14.0-18.0); LYMPHOCYTES # 0.3 10^3/ul (0.8-2.9); LYMPHOCYTES % 2.5 % (15.0-51.0); MEAN CORPUSCULAR HEMOGLOBIN 30.1 pg (29.0-33.0); MEAN CORPUSCULAR HGB CONC 30.2 g/dl (32.0-37.0); MEAN CORPUSCULAR VOLUME 99.7 fl (82.0-101.0); MEAN PLATELET VOLUME 10.1 fl (7.4-10.4); MONOCYTE # 0.5 10^3/ul (0.3-0.9); MONOCYTES % 3.6 % (0.0-11.0); NEUTROPHIL # 11.7 10^3/ul (1.6-7.5); NEUTROPHILS % 93.4 % (39.0-77.0); PLATELET COUNT 208 10^3/UL (140-415); RED BLOOD COUNT 3.52 10^6/ul (4.70-6.10); RED CELL DISTRIBUTION WIDTH 13.6 % (11.5-14.5); WHITE BLOOD COUNT 12.5 10^3/ul (4.8-10.8)
--- NOTE | 2016-10-10 09:08 | PN ---
DATE: 10/10/2016 SUBJECTIVE: The patient remains on full ventilatory support. No other events noted. No hemoptysis , hematemesis, or hematochezia. The patient has attempted and failed weaning trials. OBJECTIVE: VITAL SIGNS: Blood pressure is 117/84, respiration 16, pulse 66, temperature 98.6. I's AND O'S: The patient 1.9 liters in, 2.6 liters out. HEENT: Head is normocephalic. NECK: Supple. HEART: Regular rate. LUNGS: Show diminished breath sounds at base. ABDOMEN: Soft, nontender to palpation without rebound or guarding. EXTREMITIES: Negative for clubbing, cyanosis. Positive edema. DERMATOLOGIC: No rashes. MUSCULOSKELETAL: No joint effusions. NEUROLOGIC: No change in exam. MEDICATIONS: Reviewed. LABORATORY DATA: Shows white count 12.5, hemoglobin 10.6, hematocrit 35.1, platelet count 208. Sod ium 142, potassium 4.2, chloride 96, bicarbonate 37, BUN 47, creatinine 0.68. IMAGING: The patient's chest x-ray from 10/09/2016 shows interstitial edema with small pleural effu sions, improved lung aeration. ASSESSMENT AND PLAN: 1. Ventilatory dependent respiratory failure, etiology secondary to chronic obstructive pulmonary d isease exacerbation, chronic lung disease, pneumonia, CHF exacerbation. The patient has attempted m ultiple weaning trials. May consider trach placement. Continue current medical management. Contin ue antibiotic therapy, nebulizers, diuretic therapy. Continue Solu-Medrol. Follow up with pulmonar y for further recommendations. 2. Sepsis secondary to pneumonia. The patient is completing antibiotic course. 3. Leukocytosis, improving. 4. Acute encephalopathy secondary to hypercapnia. The patient appears to be clinically improving. Continue to monitor. 5. Acute diastolic heart failure. The patient remains edematous. Continue Lasix 40 mg b.i.d. We will give metolazone intermittently. 6. Anemia. Continue to monitor hemoglobin and hematocrit. 7. Respiratory acidosis, metabolic compensation. Continue to monitor. 8. Paroxysmal atrial fibrillation, currently in sinus rhythm. 9. Coronary artery disease. Continue current treatment plan 10. Bipolar disorder. Continue to monitor and give Ativan p.r.n. 11. Hypertension. Continue current blood pressure regimen. 12. Dysphagia status post OG tube. Continue tube feeding. 13. Gastrointestinal and deep venous thrombosis prophylaxis. Continue Protonix and Lovenox. Please note, I spent over 35 minutes of critical care time with this patient. Dictated By: RAMY PERRY/ALYSON Conf#: [id number] DID#: [id number]
[2016-10-10] MEDS: FENTAnyl (DRIP) 1000 mcg/100mL 100 ML IV SCH ×2 (09:18→19:02)
[2016-10-10] MEDS: LORATADINE 10 MG TAB PO SCH (09:19)
[2016-10-10] MEDS: MULTIVITAMINS THERAPEUTIC TAB PO SCH (09:19)
[2016-10-10] MEDS: ASCORBIC ACID 500 MG TAB PO SCH (09:19)
[2016-10-10] MEDS: LANSOPRAZOLE 30 MG CAP NGT SCH ×2 (09:19→20:21)
[2016-10-10] MEDS: METOPROLOL 25 MG TAB PO SCH ×2 (09:19→20:21)
[2016-10-10] MEDS: LEVOFLOXACIN 750MG/D5W (PMX) 150 ML IVPB SCH (09:19)
[2016-10-10] MEDS: AMIODARONE 200 MG TAB PO SCH (09:19)
[2016-10-10] MEDS: ASPIRIN 81 MG TAB PO SCH (09:19)
[2016-10-10] MEDS: ENOXAPARIN 40 MG/0.4 ML SYG SC SCH (09:21)
[2016-10-10] MEDS: L ACIDOPHIL/B LACTIS/B LONGUM CAPSULE PO SCH ×2 (09:25→21:00)
[2016-10-10] MEDS: ARTIFICIAL TEARS 15 ML OPH BOTH EYES SCH ×3 (09:25→20:21)
--- NOTE | 2016-10-10 10:14 | RADRPT ---
PROCEDURE: XR Chest 1 View. CLINICAL INDICATION: Shortness of breath. TECHNIQUE: AP view of the chest was obtained. COMPARISON: Yesterday. FINDINGS: The heart size is within normal limits. Calcified atherosclerosis is noted in the aorta. Endotrache al and nasogastric tubes are stable and appear in appropriate location. Left-sided PICC line is unc hanged. The lungs are hyperexpanded. Interstitial prominence in both lungs is unchanged. Atelecta sis is noted at the left lung base. Atelectasis versus mild infiltrates at the right lung base are stable. Osseous structures are unchanged. IMPRESSION: Calcified atherosclerosis in the aorta. Hyperexpanded lungs with diffuse mild interstitial prominence in both lungs. Interstitial prominenc e could be chronic. Findings could reflect COPD. Stable atelectasis versus mild infiltrates at the right lung base. Subsegmental atelectasis at the left lung base. RPTAT: AA .Roly Mejias MD, Date Time Electronically viewed and signed by .Roly Mejias MD, MD on 10/10/2016 10:14 .P/
--- NOTE | 2016-10-10 11:49 | CONS ---
Date/Time of Note Date/Time of Note DATE: 10/10/16 TIME: 11:46 Consult Date/Type/Reason Admit Date/Time Sep 29, 2016 at 09:25 Type of Consultation: Pulm/CCM Subjective Failed CPAP trial today with distress and desaturations. Objective Vital Signs Date Time Temp Pulse Resp B/P Pulse Ox O2 Delivery O2 Flow Rate FiO2 10/10/16 08:00 65 10/10/16 06:00 16 117/84 93 Mechanical Ventilator 10/10/16 05:05 30 10/10/16 04:00 98.6 Intake and Output 10/09/16 10/09/16 10/10/16 15:00 23:00 07:00 Intake Total 790 ml 650 ml 483 ml Output Total 435 ml 1445 ml 330 ml Balance 355 ml -795 ml 153 ml Exam HEENT: Pupils equal, round, and reactive to light. CARDIAC: S1, S2, tachycardia. CHEST: scattered rhonchi B/L ABDOMEN: Mildly distended. Bowel sounds present no guarding or rebound EXTREMITIES: No cyanosis, clubbing edema +1 Results/Medications Result Diagram: 10/10/16 0400 10/10/16 0400 Results 24 hrs Laboratory Tests Test 10/10/16 04:00 White Blood Count 12.5 H Red Blood Count 3.52 L Hemoglobin 10.6 L Hematocrit 35.1 L Mean Corpuscular Volume 99.7 Mean Corpuscular Hemoglobin 30.1 Mean Corpuscular Hemoglobin Concent 30.2 L Red Cell Distribution Width 13.6 Platelet Count 208 Mean Platelet Volume 10.1 Neutrophils % 93.4 H Lymphocytes % 2.5 L Monocytes % 3.6 Eosinophils % 0.0 Basophils % 0.1 Nucleated Red Blood Cells % 0.0 Neutrophils # 11.7 H Lymphocytes # 0.3 L Monocytes # 0.5 Eosinophils # 0.0 Basophils # 0.0 Nucleated Red Blood Cells # 0.0 Sodium Level 142 Potassium Level 4.2 Chloride Level 96 L Carbon Dioxide Level 37 H Anion Gap 13 Blood Urea Nitrogen 47 #H Creatinine 0.68 Glucose Level 196 Lactic Acid Level 1.7 Calcium Level 8.6 Phosphorus Level 4.1 Magnesium Level 2.8 H Medications Current Medications Acetaminophen (Tylenol Tab) 650 mg Q4H PRN PO MILD PAIN LEVEL 1-3 Last administered on 10/10/16t 01:39; Admin Dose 650 MG; Start 09/29/16 at 11:00 Acetaminophen (Tylenol Tab) 1,000 mg Q4H PRN PO PAIN LEVEL 4-6/10; Start at 11:00 Amiodarone HCl (Cordarone) 200 mg DAILY PO Last administered on 10/10/16 09:19 ; Admin Dose 200 MG; Start 09/30/16 at 09:00 Ascorbic Acid (Vitamin C) 500 mg DAILY PO Last administered on 10/10/16 09:19 ; Admin Dose 500 MG; Start 09/30/16 at 09:00 Aspirin (Aspirin) 81 mg DAILY PO Last administered on 10/10/16 09:19; Admin Dose 81 MG; Start 09/30/16 at 09:00 Atorvastatin Calcium (Lipitor) 5 mg QHS PO Last administered on 10/09/16 20:50 ; Admin Dose 5 MG; Start 09/29/16 at 21:00 Bisacodyl (Dulcolax Supp) 10 mg DAILY PRN [place] CONSTIPATION; Start 09/29/16 at 11 :00 Docusate Sodium (Colace) 200 mg QHS PRN PO CONSTIPATION; Start 09/29/16 at 11: 00 Loratadine (Claritin) 10 mg DAILY PO Last administered on 10/10/16 09:19; Admin Dose 10 MG; Start 09/30/16 at 09:00 Al Hydrox/Mg Hydrox/Simethicone (Mag-Al Plus) 30 ml Q6H PO Last administered on 10/10/16 05:10; Admin Dose 30 ML; Start 09/29/16 at 11:00 Magnesium Hydroxide (Milk Of Mag) 30 ml DAILY PRN PO CONSTIPATION; Start at 11:00 Metoprolol Tartrate (Lopressor) 25 mg BID PO Last administered on 10/10/16 09: 19; Admin Dose 25 MG; Start 09/29/16 at 21:00 Montelukast Sodium (Singulair) 10 mg QHS PO Last administered on 10/09/16 20: 51; Admin Dose 10 MG; Start 09/29/16 at 21:00 Multivitamins Therapeutic (Theragran) 1 tab DAILY PO Last administered on 09:19; Admin Dose 1 TAB; Start 09/30/16 at 09:00 Sodium Biphosphate/ Sodium Phosphate (Fleet Enema) 118 ml prn PRN [place] CONSTIPATION; Start 09/29/16 at 11:00 Eye Lubricant (Artificial Tears Oph) 1 drop TID BOTH EYES Last administered on 10/10/16 09:25; Admin Dose 1 DROP; Start 09/29/16 at 13:00 Lactobacillus Acidophilus 1 each 1 each BID PO Last administered on 10/10/16 09:25; Admin Dose 1 EACH; Start 09/29/16 at 21:00 Fentanyl 100 ml @ 2.5 mls/hr TITRATE IV Last administered on 10/10/16 09:18; Admin Dose 10 MLS/HR; Start 09/30/16 at 07:00 Midazolam HCl (Versed) 50 ml @ 1 mls/hr TITRATE IV Last administered on 09:18; Admin Dose 10 MLS/HR; Start 09/30/16 at 07:00 Enoxaparin Sodium 40 mg 40 mg DAILY SC Last administered on 10/10/16 09:21; Admin Dose 40 MG; Start 09/30/16 at 09:00 Levofloxacin/ Dextrose (Levaquin 750 Mg/ D5W 150 ml (Pmx)) 150 ml @ 100 mls/hr Q24H IVPB Last administered on 10/10/16 09:19; Admin Dose 100 MLS/HR; Start at 09:30 Lansoprazole (Prevacid) 30 mg BID NGT Last administered on 10/10/16 09:19; Admin Dose 30 MG; Start 09/30/16 at 21:00 Lorazepam (Ativan) 0.5 mg Q8H PRN IV anxiety; Start 10/09/16 at 08:00 Methylprednisolone Sodium Succinate (Solu-Medrol) 60 mg BID IV ; Start 10/10/16 at 21:00; Status UNV Assessment/Plan Additional Assessment/Plan IMP: 1. Acute on chronic hypoxemic and hypercapnic respiratory failure--s/p failed several weaning trials 2. Likely obstructive sleep apnea 3. Systolic and diastolic dysfunction 4. Leukocytosis likely secondary to accommodation steroids and aspiration pneumonia RECS: 1. Continue mechanical ventilation; may require trach 2. Would limit sedatives as possible 3. Continue broad-spectrum antibiotics 4. Taper steroids 5. DVT and GI prophylaxis 6. TF/Free H2O Critical care time 35 minutes EVONNE PICKERING MD Oct 10, 2016 11:48
[2016-10-10] MEDS: LORAZEPAM 2 MG INJ IV PRN (16:37)
--- NOTE | 2016-10-10 19:09 | CONS ---
Date/Time of Note Date/Time of Note DATE: 10/10/16 TIME: 19:08 Assessment/Plan Assessment/Plan Chief Complaint/Hosp Course ID PROGRESS NOTE TOTAL ABX DAY # 13 => 1. Levaquin. s/p Zyvox/Merrem > DC'd4 24H INTERVAL SUMMARY * Failed weaning trial, VSS, NAD, no fevers * WBC downtrend, renal Fx stable over 3 days * GRAM STAIN Final POLYMORPH. LEUKOCYTE 1+ . NO ORGANISM SEEN RESPIRATORY CULTURE Preliminary NO GROWTH AFTER 1 DAY PHYSICAL EXAMINATION: GENERAL: VSS, NAD -> Morbid obese M, no fevers HEENT: ETT/OGT secure NECK: Supple, trach-> midline CHEST: Equal chest rise bilaterally, without dyspnea on observation / Vented HEART: Pulse RRR - NSR on tele ABDOMEN: Soft, obese EXTREMITIES: Warm w/generalized dependent edema SKIN: Warm, dry ID ASSESSMENT: 56 yo obese M w/PMHx Psych-Bipolar, substance abuse (crack) admitted with: 1. Acute hypoxic respiratory failure -> Failed BIPAP, intubated 2. Healthcare-associated pneumonia, (+)aspiration PNA risk factors 3. Congestive heart failure exacerbation. 4. Suspect obesity hypoventilation syndrome vs FAY 5. Possible underlying COPD 6. ?GERD INVASIVES: * ETT, OGT, FC, PICC->10/06/16 ABX ALLERGIES: Vanco IV CURRENT ABX: TOTAL ABX DAY # 13 => Levaquin. s/p Zyvox/Merrem > DC'd4 ID RECOMMENDATIONS: 1. Continue current ABX taper over the weekend and monitor clinical status 2. Watch renal fx on Diuretics, Watch WBC on IV steroids . . Problems: Consultation Date/Type/Reason Admit Date/Time Sep 29, 2016 at 09:25 Type of Consultation: ID Exam/Review of Systems Vital Signs Vitals Vital Signs Date Time Temp Pulse Resp B/P Pulse Ox O2 Delivery O2 Flow Rate FiO2 10/10/16 18:00 66 16 119/86 96 Mechanical Ventilator 10/10/16 17:20 30 10/10/16 12:00 98.6 Intake and Output 10/09/16 10/09/16 10/10/16 15:00 23:00 07:00 Intake Total 790 ml 650 ml 483 ml Output Total 435 ml 1445 ml 730 ml Balance 355 ml -795 ml -247 ml Results Result Diagram: 10/10/16 0400 10/10/16 0400 Results 24 hrs Laboratory Tests Test 10/10/16 04:00 White Blood Count 12.5 H Red Blood Count 3.52 L Hemoglobin 10.6 L Hematocrit 35.1 L Mean Corpuscular Volume 99.7 Mean Corpuscular Hemoglobin 30.1 Mean Corpuscular Hemoglobin Concent 30.2 L Red Cell Distribution Width 13.6 Platelet Count 208 Mean Platelet Volume 10.1 Neutrophils % 93.4 H Lymphocytes % 2.5 L Monocytes % 3.6 Eosinophils % 0.0 Basophils % 0.1 Nucleated Red Blood Cells % 0.0 Neutrophils # 11.7 H Lymphocytes # 0.3 L Monocytes # 0.5 Eosinophils # 0.0 Basophils # 0.0 Nucleated Red Blood Cells # 0.0 Sodium Level 142 Potassium Level 4.2 Chloride Level 96 L Carbon Dioxide Level 37 H Anion Gap 13 Blood Urea Nitrogen 47 #H Creatinine 0.68 Glucose Level 196 Lactic Acid Level 1.7 Calcium Level 8.6 Phosphorus Level 4.1 Magnesium Level 2.8 H Medications Medications Current Medications Acetaminophen (Tylenol Tab) 650 mg Q4H PRN PO MILD PAIN LEVEL 1-3 Last administered on 10/10/16 01:39; Admin Dose 650 MG; Start 09/29/16 at 11:00 Acetaminophen (Tylenol Tab) 1,000 mg Q4H PRN PO PAIN LEVEL 4-6/10; Start at 11:00 Amiodarone HCl (Cordarone) 200 mg DAILY PO Last administered on 10/10/16 09:19 ; Admin Dose 200 MG; Start 09/30/16 at 09:00 Ascorbic Acid (Vitamin C) 500 mg DAILY PO Last administered on 10/10/16 09:19 ; Admin Dose 500 MG; Start 09/30/16 at 09:00 Aspirin (Aspirin) 81 mg DAILY PO Last administered on 10/10/16 09:19; Admin Dose 81 MG; Start 09/30/16 at 09:00 Atorvastatin Calcium (Lipitor) 5 mg QHS PO Last administered on 10/09/16 20:50 ; Admin Dose 5 MG; Start 09/29/16 at 21:00 Bisacodyl (Dulcolax Supp) 10 mg DAILY PRN [place] CONSTIPATION; Start 09/29/16 at 11 :00 Docusate Sodium (Colace) 200 mg QHS PRN PO CONSTIPATION; Start 09/29/16 at 11: 00 Loratadine (Claritin) 10 mg DAILY PO Last administered on 10/10/16 09:19; Admin Dose 10 MG; Start 09/30/16 at 09:00 Al Hydrox/Mg Hydrox/Simethicone (Mag-Al Plus) 30 ml Q6H PO Last administered on 10/10/16 16:37; Admin Dose 30 ML; Start 09/29/16 at 11:00 Magnesium Hydroxide (Milk Of Mag) 30 ml DAILY PRN PO CONSTIPATION; Start at 11:00 Metoprolol Tartrate (Lopressor) 25 mg BID PO Last administered on 10/10/16 09: 19; Admin Dose 25 MG; Start 09/29/16 at 21:00 Montelukast Sodium (Singulair) 10 mg QHS PO Last administered on 10/09/16 20: 51; Admin Dose 10 MG; Start 09/29/16 at 21:00 Multivitamins Therapeutic (Theragran) 1 tab DAILY PO Last administered on 09:19; Admin Dose 1 TAB; Start 09/30/16 at 09:00 Sodium Biphosphate/ Sodium Phosphate (Fleet Enema) 118 ml prn PRN [place] CONSTIPATION; Start 09/29/16 at 11:00 Eye Lubricant (Artificial Tears Oph) 1 drop TID BOTH EYES Last administered on 10/10/16 12:31; Admin Dose 1 DROP; Start 09/29/16 at 13:00 Lactobacillus Acidophilus 1 each 1 each BID PO Last administered on 10/10/16 09:25; Admin Dose 1 EACH; Start 09/29/16 at 21:00 Fentanyl 100 ml @ 2.5 mls/hr TITRATE IV Last administered on 10/10/16 19:02; Admin Dose 10 MLS/HR; Start 09/30/16 at 07:00 Midazolam HCl (Versed) 50 ml @ 1 mls/hr TITRATE IV Last administered on 15:21; Admin Dose 10 MLS/HR; Start 09/30/16 at 07:00 Enoxaparin Sodium 40 mg 40 mg DAILY SC Last administered on 10/10/16 09:21; Admin Dose 40 MG; Start 09/30/16 at 09:00 Levofloxacin/ Dextrose (Levaquin 750 Mg/ D5W 150 ml (Pmx)) 150 ml @ 100 mls/hr Q24H IVPB Last administered on 10/10/16 09:19; Admin Dose 100 MLS/HR; Start at 09:30 Lansoprazole (Prevacid) 30 mg BID NGT Last administered on 10/10/16 09:19; Admin Dose 30 MG; Start 09/30/16 at 21:00 Lorazepam (Ativan) 0.5 mg Q8H PRN IV anxiety Last administered on 10/10/16 16: 37; Admin Dose 0.5 MG; Start 10/09/16 at 08:00 Methylprednisolone Sodium Succinate (Solu-Medrol) 60 mg BID IV ; Start 10/10/16 at 21:00 RAUL GOMEZ NP Oct 10, 2016 19:09
[2016-10-10] MEDS: MONTELUKAST 10 MG TAB PO SCH (20:21)
[2016-10-10] MEDS: ATORVASTATIN 10 MG TAB PO SCH (20:21)
[2016-10-11] VITALS (34 sets, daily range): BP systolic 103–145; BP diastolic 71–101; PULSE 61–87; RESP 10–16
[2016-10-11] MEDS: AL HYDROX/MG HYDROX/SIMETH 30 ML CUP PO SCH ×4 (00:12→16:48)
[2016-10-11] MEDS: LORAZEPAM 2 MG INJ IV PRN (00:59)
[2016-10-11] MEDS: MIDAZOLAM (DRIP) 50 mg/50 mL 50 ML IV SCH ×3 (01:37→14:08)
[2016-10-11 04:36] LABS: AADO2 Arterial 62.5 mmHg (7.0-24.0); Allen Test ACCEPTAB; Arterial COHb 0.6 % (0.0-3.0); Arterial Fraction of Oxyhgb 90.3 % (93.0-99.0); Arterial HCO3 42.1 mmol/L (22.0-26.0); Arterial MetHb 0.3 % (0.0-1.5); Arterial Total Hemglobin 15.5 g/dl (12.0-18.0); MODE VENT - AC
[2016-10-11 04:47] LABS: ADD SCAN DIFF NO
[2016-10-11 04:50] LABS: ABNORMAL IP MESSAGE 1; BASOPHILS % 0.1 % (0.0-2.0); HEMATOCRIT 36.2 % (42.0-52.0); HEMOGLOBIN 11.4 g/dl (14.0-18.0); LYMPHOCYTES # 0.2 10^3/ul (0.8-2.9); LYMPHOCYTES % 1.5 % (15.0-51.0); MEAN CORPUSCULAR HEMOGLOBIN 31.2 pg (29.0-33.0); MEAN CORPUSCULAR HGB CONC 31.5 g/dl (32.0-37.0); MEAN CORPUSCULAR VOLUME 99.2 fl (82.0-101.0); MEAN PLATELET VOLUME 9.8 fl (7.4-10.4); MONOCYTE # 0.7 10^3/ul (0.3-0.9); MONOCYTES % 4.4 % (0.0-11.0); NEUTROPHIL # 14.6 10^3/ul (1.6-7.5); NEUTROPHILS % 93.6 % (39.0-77.0); PLATELET COUNT 210 10^3/UL (140-415); RED BLOOD COUNT 3.65 10^6/ul (4.70-6.10); RED CELL DISTRIBUTION WIDTH 13.5 % (11.5-14.5); WHITE BLOOD COUNT 15.6 10^3/ul (4.8-10.8)
[2016-10-11] MEDS: FUROSEMIDE 40 MG INJ IV SCH ×2 (05:00→17:44)
[2016-10-11 05:13] LABS: POTASSIUM 4.2 mmol/L (3.5-5.1)
[2016-10-11 05:15] LABS: CREATININE 0.65 mg/dl (0.61-1.24)
[2016-10-11 05:16] LABS: CALCIUM 8.8 mg/dl (8.4-10.2); MAGNESIUM 2.8 mg/dl (1.7-2.5); PHOSPHORUS 4.1 mg/dl (2.5-4.9)
[2016-10-11] MEDS: FENTAnyl (DRIP) 1000 mcg/100mL 100 ML IV SCH ×2 (05:18→14:09)
--- NOTE | 2016-10-11 08:17 | RADRPT ---
PROCEDURE: XR Chest. CLINICAL INDICATION: vent TECHNIQUE: Single frontal view of the chest was obtained. COMPARISON: Chest x-ray from 10/10/2016 FINDINGS: The endotracheal tube and right-sided PICC line are unchanged in position. The aortic arch is calcified. The heart and mediastinum are within normal limits. There is stable mild to moderate pulmonary vascular congestion as well as right basilar atelectasis. There is no significant pleural effusion or pneumothorax. IMPRESSION: No significant interval change. RPTAT: EE Physician Keren Date Time Electronically viewed and signed by Physician Keren on 10/11/2016 08:17 /
[2016-10-11] MEDS ORDERED: NA PHOSPHATE/BIPHOS 133 ML ENEMA PR PRN (08:30)
[2016-10-11] MEDS ORDERED: METOLAZONE 2.5 MG TAB PO ONE (09:00)
[2016-10-11] MEDS: L ACIDOPHIL/B LACTIS/B LONGUM CAPSULE PO SCH ×2 (09:05→20:37)
[2016-10-11] MEDS: ASPIRIN 81 MG TAB PO SCH (09:05)
[2016-10-11] MEDS: LORATADINE 10 MG TAB PO SCH (09:06)
[2016-10-11] MEDS: AMIODARONE 200 MG TAB PO SCH (09:06)
[2016-10-11] MEDS: LANSOPRAZOLE 30 MG CAP NGT SCH ×2 (09:06→20:35)
[2016-10-11] MEDS: METOPROLOL 25 MG TAB PO SCH ×2 (09:06→20:35)
[2016-10-11] MEDS: MULTIVITAMINS THERAPEUTIC TAB PO SCH (09:07)
[2016-10-11] MEDS: METHYLPREDNISOLONE 125 MG INJ IV SCH ×2 (09:07→20:35)
[2016-10-11] MEDS: ARTIFICIAL TEARS 15 ML OPH BOTH EYES SCH ×3 (09:07→20:35)
[2016-10-11] MEDS: ASCORBIC ACID 500 MG TAB PO SCH (09:07)
[2016-10-11] MEDS: ENOXAPARIN 40 MG/0.4 ML SYG SC SCH (09:08)
[2016-10-11] MEDS: LEVOFLOXACIN 750MG/D5W (PMX) 150 ML IVPB SCH (09:12)
--- NOTE | 2016-10-11 09:46 | PN ---
DATE: 10/11/2016 SUBJECTIVE: The patient remains on full ventilatory support, unable to be weaned. No other events n oted. The patient is also noted to have agitation was not able to sleep at night despite giving anx iolytic medications. Please note, I spoke with the patient's brother informing and updating him of his brother's condition. OBJECTIVE: VITAL SIGNS: Blood pressure 139/91, respirations 14, pulse 79, temperature 98.6. I'S AND O'S: The patient had 800 in, 2.3 liters out. HEENT: Head is normocephalic. NECK: Supple. HEART: Regular rate. LUNGS: Show diminished breath sounds at the base. ABDOMEN: Soft, nontender to palpation. No rebound or guarding. EXTREMITIES: Negative for clubbing, cyanosis. Positive edema. DERMATOLOGIC: No rashes. MUSCULOSKELETAL: No joint effusions. NEUROLOGIC: No change in exam. MEDICATIONS: Patient's medications have been reviewed. LABORATORY DATA: Showed sodium 143, potassium 4.2, chloride 93, bicarbonate 41, BUN 49, creatinine 0.65. White count 15.6, hemoglobin 9.4, hematocrit 36.2, platelet count is 210. IMAGING: Chest x-ray on 10/11/2016 shows pulmonary vascular congestion. No pleural effusion. ASSESSMENT AND PLAN: 1. Ventilatory-dependent respiratory failure secondary to chronic obstructive pulmonary disease exa cerbation, chronic lung disease, pneumonia and congestive heart failure. The patient failed multipl e weaning trials may require trach placement. We will continue current treatment plan. Continue an tibiotics, nebulizer, diuretic therapy, Solu-Medrol. Follow up with pulmonary and cardiology. 2. Sepsis secondary to pneumonia. The patient is completing antibiotic course. 3. Leukocytosis secondary to sepsis and corticosteroids. Continue to monitor. 4. Acute encephalopathy secondary to hypercapnia. Continue to monitor. 5. Insomnia, agitation. The patient will be given Seroquel 25 mg at bedtime. 6. Acute diastolic heart failure. The patient remains edematous. Chest x-ray shows pulmonary gary estion. Continue Lasix 40 mg b.i.d. We will give one dose of metolazone to augment diuresis. 7. Anemia. Continue to monitor hemoglobin and hematocrit levels. 8. Respiratory acidosis, metabolic compensation. 9. Paroxysmal atrial fibrillation currently in sinus rhythm. 10. Chronic kidney disease, continue current treatment plan. 11. Bipolar disorder. We will continue Ativan and will give Seroquel. 12. Hypertension. Continue current blood pressure regimen. 13. Dysphagia, status post OG tube. Continue tube feed. 14. GI and DVT prophylaxis. Continue Protonix and Lovenox. Please note I spent over 30 minutes of critical care time with this patient. Dictated By: RAMY PERRY/ALYSON Conf#: [id number] DID#: [id number]
--- NOTE | 2016-10-11 10:52 | CONS ---
Date/Time of Note Date/Time of Note DATE: 10/11/16 TIME: 10:49 Consult Date/Type/Reason Admit Date/Time Sep 29, 2016 at 09:25 Type of Consultation: pulmonary ICU Subjective Patient remains intubated sedated on mechanical ventilation, he failed CPAP weaning trials this weekend Objective Vital Signs Date Time Temp Pulse Resp B/P Pulse Ox O2 Delivery O2 Flow Rate FiO2 10/11/16 08:00 73 10/11/16 06:00 14 139/91 97 Mechanical Ventilator 10/11/16 05:00 30 10/11/16 04:00 98.6 Intake and Output 10/10/16 10/10/16 10/11/16 15:00 23:00 07:00 Intake Total 640.5 ml 590 ml 550 ml Output Total 395 ml 840 ml 750 ml Balance 245.5 ml -250 ml -200 ml Exam PHYSICAL EXAMINATION GENERAL: Elderly gentleman, intubated on mechanical ventilation, opens eyes and appears somewhat agitated. Orally intubated. VITAL SIGNS: see below. HEENT: Pupils equal, round, and reactive to light. CARDIAC: S1, S2, tachycardia. CHEST: Diminished air entry bilaterally. ABDOMEN: Mildly distended. Bowel sounds present no guarding or rebound EXTREMITIES: No cyanosis, clubbing edema +1 NEUROLOGIC: No focal deficits. Results/Medications Result Diagram: 10/11/16 0400 10/11/16 0400 Results 24 hrs Laboratory Tests Test 10/11/16 04:00 10/11/16 05:00 White Blood Count 15.6 #H Red Blood Count 3.65 L Hemoglobin 11.4 L Hematocrit 36.2 L Mean Corpuscular Volume 99.2 Mean Corpuscular Hemoglobin 31.2 Mean Corpuscular Hemoglobin Concent 31.5 L Red Cell Distribution Width 13.5 Platelet Count 210 Mean Platelet Volume 9.8 Neutrophils % 93.6 H Lymphocytes % 1.5 L Monocytes % 4.4 Eosinophils % 0.0 Basophils % 0.1 Nucleated Red Blood Cells % 0.0 Neutrophils # 14.6 H Lymphocytes # 0.2 L Monocytes # 0.7 Eosinophils # 0.0 Basophils # 0.0 Nucleated Red Blood Cells # 0.0 Sodium Level 143 Potassium Level 4.2 Chloride Level 93 L Carbon Dioxide Level 41 *H Anion Gap 13 Blood Urea Nitrogen 49 H Creatinine 0.65 Glucose Level 184 Calcium Level 8.8 Phosphorus Level 4.1 Magnesium Level 2.8 H Blood Gas Specimen Source Blood arterial Arterial Blood Date Drawn 10/11/2016 4:30:56 AM Arterial Blood pH (Temp corrected) 7.377 Arterial Blood pCO2 (Temp correct) 73.3 H Arterial Blood pO2 (Temp corrected) 65.3 L Arterial Blood HCO3 42.1 *H Arterial Blood Base Excess 13.0 H Arterial Blood Oxygen Saturation 91.1 L Elijah Test ACCEPTAB Arterial Blood Gas Puncture Site Right Radial Arterial Blood Carboxyhemoglobin 0.6 Arterial Blood Methemoglobin 0.3 Blood Gas A-a O2 Differential 62.5 H Oxyhemoglobin Percent 90.3 L Total Hemoglobin 15.5 Blood Gas Temperature 37.0 Blood Gas Respiration Rate 16.0 Blood Gas Actual Respiration Rate 16 Blood Gas Modality VENT - AC FiO2 30.0 Blood Gas Tidal Volume 500.0 Blood Gas Low PEEP Setting 5.0 Blood Gas Critical Value Read Back NICOLA SHIELDS RN Blood Gas Notified Whom BR Blood Gas Notified Time 10/11/2016 4:36:17 AM Medications Current Medications Acetaminophen (Tylenol Tab) 650 mg Q4H PRN PO MILD PAIN LEVEL 1-3 Last administered on 10/10/16 01:39; Admin Dose 650 MG; Start 09/29/16 at 11:00 Acetaminophen (Tylenol Tab) 1,000 mg Q4H PRN PO PAIN LEVEL 4-6/10; Start at 11:00 Amiodarone HCl (Cordarone) 200 mg DAILY PO Last administered on 10/11/16 09:06 ; Admin Dose 200 MG; Start 09/30/16 at 09:00 Ascorbic Acid (Vitamin C) 500 mg DAILY PO Last administered on 10/11/16 09:07 ; Admin Dose 500 MG; Start 09/30/16 at 09:00 Aspirin (Aspirin) 81 mg DAILY PO Last administered on 10/11/16 09:05; Admin Dose 81 MG; Start 09/30/16 at 09:00 Atorvastatin Calcium (Lipitor) 5 mg QHS PO Last administered on 10/10/16 20:21 ; Admin Dose 5 MG; Start 09/29/16 at 21:00 Bisacodyl (Dulcolax Supp) 10 mg DAILY PRN NE CONSTIPATION; Start 09/29/16 at 11 :00 Docusate Sodium (Colace) 200 mg QHS PRN PO CONSTIPATION; Start 09/29/16 at 11: 00 Loratadine (Claritin) 10 mg DAILY PO Last administered on 10/11/16 09:06; Admin Dose 10 MG; Start 09/30/16 at 09:00 Al Hydrox/Mg Hydrox/Simethicone (Mag-Al Plus) 30 ml Q6H PO Last administered on 10/11/16 04:59; Admin Dose 30 ML; Start 09/29/16 at 11:00 Magnesium Hydroxide (Milk Of Mag) 30 ml DAILY PRN PO CONSTIPATION; Start at 11:00 Metoprolol Tartrate (Lopressor) 25 mg BID PO Last administered on 10/11/16 09: 06; Admin Dose 25 MG; Start 09/29/16 at 21:00 Montelukast Sodium (Singulair) 10 mg QHS PO Last administered on 10/10/16 20: 21; Admin Dose 10 MG; Start 09/29/16 at 21:00 Multivitamins Therapeutic (Theragran) 1 tab DAILY PO Last administered on 09:07; Admin Dose 1 TAB; Start 09/30/16 at 09:00 Sodium Biphosphate/ Sodium Phosphate (Fleet Enema) 118 ml prn PRN NE CONSTIPATION; Start 09/29/16 at 11:00 Eye Lubricant (Artificial Tears Oph) 1 drop TID BOTH EYES Last administered on 10/11/16 09:07; Admin Dose 1 DROP; Start 09/29/16 at 13:00 Lactobacillus Acidophilus 1 each 1 each BID PO Last administered on 10/11/16 09:05; Admin Dose 1 EACH; Start 09/29/16 at 21:00 Fentanyl 100 ml @ 2.5 mls/hr TITRATE IV Last administered on 10/11/16 05:18; Admin Dose 10 MLS/HR; Start 09/30/16 at 07:00 Midazolam HCl (Versed) 50 ml @ 1 mls/hr TITRATE IV Last administered on 08:59; Admin Dose 10 MLS/HR; Start 09/30/16 at 07:00 Enoxaparin Sodium 40 mg 40 mg DAILY SC Last administered on 10/11/16 09:08; Admin Dose 40 MG; Start 09/30/16 at 09:00 Levofloxacin/ Dextrose (Levaquin 750 Mg/ D5W 150 ml (Pmx)) 150 ml @ 100 mls/hr Q24H IVPB Last administered on 10/11/16 09:12; Admin Dose 100 MLS/HR; Start at 09:30 Lansoprazole (Prevacid) 30 mg BID NGT Last administered on 10/11/16 09:06; Admin Dose 30 MG; Start 09/30/16 at 21:00 Lorazepam (Ativan) 0.5 mg Q8H PRN IV anxiety Last administered on 10/11/16 00: 59; Admin Dose 0.5 MG; Start 10/09/16 at 08:00 Methylprednisolone Sodium Succinate (Solu-Medrol) 60 mg BID IV Last administered on 10/11/16 09:07; Admin Dose 60 MG; Start 10/10/16 at 21:00 Quetiapine Fumarate (Seroquel) 25 mg QHS PRN NGT anxiety; Start 10/11/16 at 21: 00 Sodium Biphosphate/ Sodium Phosphate (Fleet Enema) 133 ml DAILY PRN NE CONSTIPATION; Start 10/11/16 at 08:30 Assessment/Plan Chief Complaint/Hosp Course Assessment 1. Acute on chronic hypoxemic and hypercapnic respiratory failure, failed several weaning trials 2. Probable obstructive sleep apnea 3. Systolic and diastolic dysfunction 4. Leukocytosis likely secondary to intravenous steroids. Plan 1. Continue mechanical ventilation. Primary care team to discuss with next of kin regarding goals of care specifically tracheostomy 2. Continue bronchodilators 3. Continue broad-spectrum antibiotics 4. Continue steroids 5. DVT and GI prophylaxis Disposition Continue ICU care mold worker to establish family conference Critical care time 35 minutes Problems: DEM[facility] BROWN [facility] Oct 11, 2016 10:51
[2016-10-11] MEDS ORDERED: HYDROCORTISONE 1% 28.35 GM OINT TOP SCH (13:00)
--- NOTE | 2016-10-11 13:29 | CONS ---
Date/Time of Note Date/Time of Note DATE: 10/11/16 TIME: :17 Assessment/Plan Assessment/Plan Chief Complaint/Hosp Course ID PROGRESS NOTE TOTAL ABX DAY # 14 => Levaquin. s/p Zyvox/Merrem > DC'10/08/16 24H INTERVAL SUMMARY * No fevers, WBC up -> Likely due to IV steroids -> Failed weaning trial, look comfortable * (+)Back rash -- probably r/t fungal + heat laying on cotton over synthetic sheets * RESPIRATORY CULTURE Preliminary Organism 1 YEAST QUANTITY SCANT GROWTH PHYSICAL EXAMINATION: GENERAL: VSS, NAD -> Morbid obese M, no fevers HEENT: ETT/OGT secure NECK: Supple, trach-> midline CHEST: Equal chest rise bilaterally, without dyspnea on observation / Vented HEART: Pulse RRR - NSR on tele ABDOMEN: Soft, obese EXTREMITIES: Warm w/generalized dependent edema SKIN: Warm, dry ID ASSESSMENT: 56 yo obese M w/PMHx Psych-Bipolar, substance abuse (crack) admitted with: 1. Acute hypoxic respiratory failure -> Failed BIPAP, intubated 2. Healthcare-associated pneumonia, (+)aspiration PNA risk factors * Oral candidiasis RESPIRATORY CULTURE Preliminary Organism 1 YEAST QUANTITY SCANT GROWTH 3. Congestive heart failure exacerbation. 4. Suspect obesity hypoventilation syndrome vs FAY 5. COPD 6. GERD 7. Candidiasis => Oral, opportunistic respiratory sputum pathogen, dermatomycosis back, groin INVASIVES: * ETT, OGT, FC, PICC->10/06/16 ABX ALLERGIES: Vanco IV CURRENT ABX: TOTAL ABX DAY # 13 => Levaquin + Start short course Cancidas s/p Zyvox/Merrem > DC'd4 ID RECOMMENDATIONS: 1. Continue Levaquin + + Start short course Cancidas 2. Watch renal fx on Diuretics, WBC rising on IV steroids . . . Problems: Consultation Date/Type/Reason Admit Date/Time Sep 29, 2016 at 09:25 Type of Consultation: ID Exam/Review of Systems Vital Signs Vitals Vital Signs Date Time Temp Pulse Resp B/P Pulse Ox O2 Delivery O2 Flow Rate FiO2 10/11/16 13:00 63 16 108/80 97 Mechanical Ventilator 10/11/16 12:00 98.7 10/11/16 11:15 30 Intake and Output 10/10/16 10/10/16 10/11/16 15:00 23:00 07:00 Intake Total 640.5 ml 590 ml 560 ml Output Total 395 ml 840 ml 750 ml Balance 245.5 ml -250 ml -190 ml Results Result Diagram: 10/11/16 0400 10/11/16 0400 Results 24 hrs Laboratory Tests Test 10/11/16 04:00 10/11/16 05:00 White Blood Count 15.6 #H Red Blood Count 3.65 L Hemoglobin 11.4 L Hematocrit 36.2 L Mean Corpuscular Volume 99.2 Mean Corpuscular Hemoglobin 31.2 Mean Corpuscular Hemoglobin Concent 31.5 L Red Cell Distribution Width 13.5 Platelet Count 210 Mean Platelet Volume 9.8 Neutrophils % 93.6 H Lymphocytes % 1.5 L Monocytes % 4.4 Eosinophils % 0.0 Basophils % 0.1 Nucleated Red Blood Cells % 0.0 Neutrophils # 14.6 H Lymphocytes # 0.2 L Monocytes # 0.7 Eosinophils # 0.0 Basophils # 0.0 Nucleated Red Blood Cells # 0.0 Sodium Level 143 Potassium Level 4.2 Chloride Level 93 L Carbon Dioxide Level 41 *H Anion Gap 13 Blood Urea Nitrogen 49 H Creatinine 0.65 Glucose Level 184 Calcium Level 8.8 Phosphorus Level 4.1 Magnesium Level 2.8 H Blood Gas Specimen Source Blood arterial Arterial Blood Date Drawn 10/11/2016 4:30:56 AM Arterial Blood pH (Temp corrected) 7.377 Arterial Blood pCO2 (Temp correct) 73.3 H Arterial Blood pO2 (Temp corrected) 65.3 L Arterial Blood HCO3 42.1 *H Arterial Blood Base Excess 13.0 H Arterial Blood Oxygen Saturation 91.1 L Elijah Test ACCEPTAB Arterial Blood Gas Puncture Site Right Radial Arterial Blood Carboxyhemoglobin 0.6 Arterial Blood Methemoglobin 0.3 Blood Gas A-a O2 Differential 62.5 H Oxyhemoglobin Percent 90.3 L Total Hemoglobin 15.5 Blood Gas Temperature 37.0 Blood Gas Respiration Rate 16.0 Blood Gas Actual Respiration Rate 16 Blood Gas Modality VENT - AC FiO2 30.0 Blood Gas Tidal Volume 500.0 Blood Gas Low PEEP Setting 5.0 Blood Gas Critical Value Read Back NICOLA SHIELDS RN Blood Gas Notified Whom BR Blood Gas Notified Time 10/11/2016 4:36:17 AM Medications Medications Current Medications Acetaminophen (Tylenol Tab) 650 mg Q4H PRN PO MILD PAIN LEVEL 1-3 Last administered on 10/10/16 01:39; Admin Dose 650 MG; Start 09/29/16 at 11:00 Acetaminophen (Tylenol Tab) 1,000 mg Q4H PRN PO PAIN LEVEL 4-6/10; Start at 11:00 Amiodarone HCl (Cordarone) 200 mg DAILY PO Last administered on 10/11/16 09:06 ; Admin Dose 200 MG; Start 09/30/16 at 09:00 Ascorbic Acid (Vitamin C) 500 mg DAILY PO Last administered on 10/11/16 09:07 ; Admin Dose 500 MG; Start 09/30/16 at 09:00 Aspirin (Aspirin) 81 mg DAILY PO Last administered on 10/11/16 09:05; Admin Dose 81 MG; Start 09/30/16 at 09:00 Atorvastatin Calcium (Lipitor) 5 mg QHS PO Last administered on 10/10/16 20:21 ; Admin Dose 5 MG; Start 09/29/16 at 21:00 Bisacodyl (Dulcolax Supp) 10 mg DAILY PRN DE CONSTIPATION; Start 09/29/16 at 11 :00 Docusate Sodium (Colace) 200 mg QHS PRN PO CONSTIPATION; Start 09/29/16 at 11: 00 Loratadine (Claritin) 10 mg DAILY PO Last administered on 10/11/16 09:06; Admin Dose 10 MG; Start 09/30/16 at 09:00 Al Hydrox/Mg Hydrox/Simethicone (Mag-Al Plus) 30 ml Q6H PO Last administered on 10/11/16 12:43; Admin Dose 30 ML; Start 09/29/16 at 11:00 Magnesium Hydroxide (Milk Of Mag) 30 ml DAILY PRN PO CONSTIPATION; Start at 11:00 Metoprolol Tartrate (Lopressor) 25 mg BID PO Last administered on 10/11/16 09: 06; Admin Dose 25 MG; Start 09/29/16 at 21:00 Montelukast Sodium (Singulair) 10 mg QHS PO Last administered on 10/10/16 20: 21; Admin Dose 10 MG; Start 09/29/16 at 21:00 Multivitamins Therapeutic (Theragran) 1 tab DAILY PO Last administered on 09:07; Admin Dose 1 TAB; Start 09/30/16 at 09:00 Sodium Biphosphate/ Sodium Phosphate (Fleet Enema) 118 ml prn PRN DE CONSTIPATION; Start 09/29/16 at 11:00 Eye Lubricant (Artificial Tears Oph) 1 drop TID BOTH EYES Last administered on 10/11/16 12:43; Admin Dose 1 DROP; Start 09/29/16 at 13:00 Lactobacillus Acidophilus 1 each 1 each BID PO Last administered on 10/11/16 09:05; Admin Dose 1 EACH; Start 09/29/16 at 21:00 Fentanyl 100 ml @ 2.5 mls/hr TITRATE IV Last administered on 10/11/16 05:18; Admin Dose 10 MLS/HR; Start 09/30/16 at 07:00 Midazolam HCl (Versed) 50 ml @ 1 mls/hr TITRATE IV Last administered on 08:59; Admin Dose 10 MLS/HR; Start 09/30/16 at 07:00 Enoxaparin Sodium 40 mg 40 mg DAILY SC Last administered on 10/11/16 09:08; Admin Dose 40 MG; Start 09/30/16 at 09:00 Levofloxacin/ Dextrose (Levaquin 750 Mg/ D5W 150 ml (Pmx)) 150 ml @ 100 mls/hr Q24H IVPB Last administered on 10/11/16 09:12; Admin Dose 100 MLS/HR; Start at 09:30 Lansoprazole (Prevacid) 30 mg BID NGT Last administered on 10/11/16 09:06; Admin Dose 30 MG; Start 09/30/16 at 21:00 Lorazepam (Ativan) 0.5 mg Q8H PRN IV anxiety Last administered on 10/11/16 00: 59; Admin Dose 0.5 MG; Start 10/09/16 at 08:00 Methylprednisolone Sodium Succinate (Solu-Medrol) 60 mg BID IV Last administered on 10/11/16 09:07; Admin Dose 60 MG; Start 10/10/16 at 21:00 Quetiapine Fumarate (Seroquel) 25 mg QHS PRN NGT anxiety; Start 10/11/16 at 21: 00 Sodium Biphosphate/ Sodium Phosphate (Fleet Enema) 133 ml DAILY PRN DE CONSTIPATION; Start 10/11/16 at 08:30 Hydrocortisone (Hydrocortisone 1% Oint) 1 applic BID TOP ; Start 10/11/16 at 13: 00 RAUL GOMEZ NP Oct 11, 2016 13:28
[2016-10-11] MEDS ORDERED: CASPOFUNGIN 70 MG in SOD CHLORIDE 0.9% 250 ML IVPB SCH (14:30)
[2016-10-11] MEDS: BETAMETHASONE/CLOTRIMAZOLE 15 GM CR TOP SCH (15:30)
[2016-10-11] MEDS: NYSTATIN 30 GM POWDER BTL TOP SCH ×2 (16:43→20:34)
[2016-10-11] MEDS: NYSTATIN SUSP 5 ML CUP PO SCH ×3 (16:46→20:35)
[2016-10-11] MEDS: ACETAZOLAMIDE 500 MG INJ IV SCH (16:48)
[2016-10-11] MEDS: MIDAZOLAM DRIP 1 MG/ML in NS 100 ML IV SCH (19:22)
[2016-10-11] MEDS: ATORVASTATIN 10 MG TAB PO SCH (20:35)
[2016-10-11] MEDS: MONTELUKAST 10 MG TAB PO SCH (20:35)
[2016-10-11] MEDS: QUETIAPINE 25 MG TAB NGT PRN (23:35)
[2016-10-12] VITALS (37 sets, daily range): BP systolic 96–138; BP diastolic 68–120; PULSE 60–105; RESP 13–21
[2016-10-12] MEDS: FENTAnyl (DRIP) 1000 mcg/100mL 100 ML IV SCH ×2 (00:13→12:28)
[2016-10-12] MEDS: AL HYDROX/MG HYDROX/SIMETH 30 ML CUP PO SCH ×5 (00:52→23:58)
[2016-10-12] MEDS: BETAMETHASONE/CLOTRIMAZOLE 15 GM CR TOP SCH ×3 (00:52→21:09)
[2016-10-12 04:46] LABS: ADD SCAN DIFF NO
[2016-10-12] MEDS: MIDAZOLAM (DRIP) 50 mg/50 mL 50 ML IV SCH ×2 (04:53→14:52)
[2016-10-12 05:05] LABS: ABNORMAL IP MESSAGE 1; BASOPHILS % 0.1 % (0.0-2.0); HEMATOCRIT 35.1 % (42.0-52.0); HEMOGLOBIN 10.8 g/dl (14.0-18.0); LYMPHOCYTES # 0.3 10^3/ul (0.8-2.9); LYMPHOCYTES % 1.9 % (15.0-51.0); MEAN CORPUSCULAR HEMOGLOBIN 30.4 pg (29.0-33.0); MEAN CORPUSCULAR HGB CONC 30.8 g/dl (32.0-37.0); MEAN CORPUSCULAR VOLUME 98.9 fl (82.0-101.0); MEAN PLATELET VOLUME 10.3 fl (7.4-10.4); MONOCYTE # 0.5 10^3/ul (0.3-0.9); MONOCYTES % 3.1 % (0.0-11.0); NEUTROPHIL # 13.5 10^3/ul (1.6-7.5); NEUTROPHILS % 94.5 % (39.0-77.0); PLATELET COUNT 175 10^3/UL (140-415); RED BLOOD COUNT 3.55 10^6/ul (4.70-6.10); RED CELL DISTRIBUTION WIDTH 13.3 % (11.5-14.5); WHITE BLOOD COUNT 14.3 10^3/ul (4.8-10.8)
[2016-10-12 05:15] LABS: POTASSIUM 4.1 mmol/L (3.5-5.1)
[2016-10-12 05:17] LABS: CREATININE 0.71 mg/dl (0.61-1.24)
[2016-10-12 05:18] LABS: CALCIUM 8.9 mg/dl (8.4-10.2); MAGNESIUM 2.5 mg/dl (1.7-2.5); PHOSPHORUS 4.5 mg/dl (2.5-4.9)
[2016-10-12] MEDS: FUROSEMIDE 40 MG INJ IV SCH ×2 (06:06→18:08)
--- NOTE | 2016-10-12 06:40 | PN ---
DATE: 10/11/2016 CARDIOLOGY FOLLOWUP NOTE SUBJECTIVE: discussed with the staff. the patient remains in sinus rhythm. No evidenc e of atrial fibrillation, remains intubated on the vent, has not tolerated weaning at all. He has n ot tolerated the CPAP trial. Currently sedated discussed with the staff. Rhythm strip was re viewed. MEDICATIONS: Reviewed as per medical reconciliation, personally reviewed. PHYSICAL EXAMINATION: VITAL SIGNS: Temperature 98.7, heart rate of 63, blood pressure 108/80, respiratory rate of 16, sat urating 97%. HEENT: Normocephalic, atraumatic. Obese gentleman. Status post intubation on the vent. Eyes: Pu pils equal. CARDIOVASCULAR: Regular rate and rhythm, systolic murmur. PULMONARY: With no wheezes and mild rhonchi diffuse. GASTROINTESTINAL: Obese, soft, nontender. EXTREMITIES: Positive lower extremity edema. NEUROLOGIC: Sedated. LABORATORY DATA: WBC of 15.6, hemoglobin 11.4, platelets of 210. Sodium 143, potassium 4.2, CO2 of 41, BUN of 49, creatinine of 0.65. Chest x-ray shows no significant change, mild to moderate pulmo nary vascular congestion. ASSESSMENT AND PLAN: 1. Hypercapnic-hypoxemic respiratory failure, status post intubation on the vent. 2. Chronic obstructive pulmonary disease exacerbation. 3. Paroxysmal atrial fibrillation, currently in sinus rhythm. 4. Hypertension. 5. Possible pneumonia. 6. obstructive sleep apnea. 7. Congestive heart failure/fluid overload. RECOMMENDATIONS: Diuretic as per renal. Continue with the respiratory care. We will give a dose o f Diamox tomorrow as well. Continue with the ICU care. Dictated By: BRENTON SAVAGE/NTS Conf#: [id number] DID#: [id number] CC: RAMY DOMINGUEZ DO;*EndCC*
[2016-10-12 08:20] LABS: AADO2 Arterial 42.3 mmHg (7.0-24.0); Allen Test ACCEPTAB; Arterial Base Excess 14.7 mmol/L (-3.0-3); Arterial COHb 0.6 % (0.0-3.0); Arterial Fraction of Oxyhgb 96.3 % (93.0-99.0); Arterial HCO3 41.6 mmol/L (22.0-26.0); Arterial MetHb 0.2 % (0.0-1.5); Arterial Total Hemglobin 12.5 g/dl (12.0-18.0); MODE VENT - AC
--- NOTE | 2016-10-12 08:23 | RADRPT ---
PROCEDURE: XR Chest. CLINICAL INDICATION: EFFUSIONS TECHNIQUE: Single frontal view of the chest was obtained. COMPARISON: Chest x-ray from 10/11/2016 FINDINGS: The endotracheal tube and right-sided PICC line are unchanged in position. The aortic arch is calcified. The heart and mediastinum are within normal limits. There is stable mild pulmonary vascular congestion as well as right basilar atelectasis. There is no significant pleural effusion or pneumothorax. IMPRESSION: No significant interval change. RPTAT: EE Physician Keren Date Time Electronically viewed and signed by Romain Campbell Physician on 10/12/2016 08:23 /
[2016-10-12] MEDS: NYSTATIN 30 GM POWDER BTL TOP SCH ×2 (08:41→21:09)
[2016-10-12] MEDS: ARTIFICIAL TEARS 15 ML OPH BOTH EYES SCH ×3 (08:41→21:10)
[2016-10-12] MEDS: ACETAZOLAMIDE 500 MG INJ IV SCH (08:42)
[2016-10-12] MEDS: L ACIDOPHIL/B LACTIS/B LONGUM CAPSULE PO SCH ×2 (08:42→21:08)
[2016-10-12] MEDS: METHYLPREDNISOLONE 125 MG INJ IV SCH ×2 (08:42→21:08)
[2016-10-12] MEDS: LANSOPRAZOLE 30 MG CAP NGT SCH ×2 (08:42→21:08)
[2016-10-12] MEDS: MULTIVITAMINS THERAPEUTIC TAB PO SCH (08:42)
[2016-10-12] MEDS: NYSTATIN SUSP 5 ML CUP PO SCH ×4 (08:42→21:08)
[2016-10-12] MEDS: ASPIRIN 81 MG TAB PO SCH (08:42)
[2016-10-12] MEDS: ASCORBIC ACID 500 MG TAB PO SCH (08:42)
[2016-10-12] MEDS: METOPROLOL 25 MG TAB PO SCH ×2 (08:43→21:09)
[2016-10-12] MEDS: AMIODARONE 200 MG TAB PO SCH (08:43)
[2016-10-12] MEDS: LEVOFLOXACIN 750MG/D5W (PMX) 150 ML IVPB SCH (08:44)
[2016-10-12] MEDS: ENOXAPARIN 40 MG/0.4 ML SYG SC SCH (08:44)
--- NOTE | 2016-10-12 09:09 | PN ---
DATE: 10/12/2016 SUBJECTIVE: The patient remains critical, but stable on full ventilatory support. The patient had attempted multiple weaning trials, but has failed. No other events noted. OBJECTIVE: VITAL SIGNS: Blood pressure is 106/76, respirations 16, pulse 67, temperature 98.5. I's AND O'S: The patient had 2.3 liters in, 4.4 liters out. HEENT: Head is normocephalic. NECK: Supple. HEART: Regular rate. LUNGS: Show diminished breath sounds at the base. ABDOMEN: Soft, nontender to palpation. No rebound or guarding. EXTREMITIES: Negative for clubbing, cyanosis, no edema. DERMATOLOGIC: No rashes. MUSCULOSKELETAL: No joint effusions. NEUROLOGIC: No change in exam. MEDICATIONS: The patient's medications have been reviewed. LABORATORY DATA: Shows white count 14.3, hemoglobin 10.8, hematocrit 35.1, platelet count is 13.3. Sodium 138, potassium 4.1, BUN 40, creatinine 0.71. Patient's sputum cultures positive for yeast. ASSESSMENT AND PLAN: 1. Ventilatory-dependent respiratory failure secondary to chronic obstructive pulmonary disease exa cerbation, chronic lung disease, pneumonia, congestive heart failure. The patient did attempt failed multiple weaning trials. Will continue current treatment plan. Continue current medical management . Continue weaning per pulmonary. 2. Acute diastolic heart failure. Patient remains decompensated. We will continue current diureti c regimen of Lasix and Diamox. Urinary output has been excellent. 3. Sepsis secondary to pneumonia. Patient is completing antibiotic course. Will start on antifunga l therapy as respiratory culture shows yeast. 4. Leukocytosis secondary to sepsis, steroids. Continue to monitor. 5. Acute encephalopathy secondary to hypercapnia. Continue to monitor. 6. Insomnia and agitation. Will give Seroquel, Ativan p.r.n. 7. Anemia. Continue to monitor hemoglobin and hematocrit levels. 8. Respiratory acidosis with metabolic compensation. The patient is receiving Diamox. Will follow up ABGs. 9. Coronary artery disease. Continue current medical management. 10. Azotemia. Etiology is multifactorial secondary to diuretic therapy, hypermetabolic state. Will continue to monitor. 11. Bipolar disorder. 12. Hypertension. Continue current blood pressure regimen. 13. Dysphagia, status post G-tube. Continue tube feeding. 14. GI and deep vein thrombosis prophylaxis. Continue PPI and Lovenox. Dictated By: RAMY PERRY/ALYSON Conf#: [id number] DID#: [id number]
[2016-10-12] MEDS: LORATADINE 10 MG TAB PO SCH (11:25)
--- NOTE | 2016-10-12 12:24 | CONS ---
Date/Time of Note Date/Time of Note DATE: 10/12/16 TIME: 12:22 Consult Date/Type/Reason Admit Date/Time Sep 29, 2016 at 09:25 Type of Consultation: pulmonary ICU Subjective Patient remains intubated sedated on mechanical ventilation Comfortable at rest no acute distress No hemodynamic compromise Objective Vital Signs Date Time Temp Pulse Resp B/P Pulse Ox O2 Delivery O2 Flow Rate FiO2 10/12/16 11:07 62 16 96 30 10/12/16 08:00 Bag Valve Mask 10/12/16 07:00 106/76 10/12/16 04:00 98.5 Intake and Output 10/11/16 10/11/16 10/12/16 14:59 22:59 06:59 Intake Total 770 ml 900 ml 660 ml Output Total 1048 ml 1735 ml 1470 ml Balance -278 ml -835 ml -810 ml Exam PHYSICAL EXAMINATION GENERAL: Elderly gentleman, intubated on mechanical ventilation, opens eyes and appears somewhat agitated. Orally intubated. VITAL SIGNS: see below. HEENT: Pupils equal, round, and reactive to light. CARDIAC: S1, S2, tachycardia. CHEST: Diminished air entry bilaterally. ABDOMEN: Mildly distended. Bowel sounds present no guarding or rebound EXTREMITIES: No cyanosis, clubbing edema +1 NEUROLOGIC: No focal deficits. Results/Medications Result Diagram: 10/12/16 0405 10/12/16 0405 Results 24 hrs Laboratory Tests Test 10/12/16 04:05 10/12/16 07:00 White Blood Count 14.3 H Red Blood Count 3.55 L Hemoglobin 10.8 L Hematocrit 35.1 L Mean Corpuscular Volume 98.9 Mean Corpuscular Hemoglobin 30.4 Mean Corpuscular Hemoglobin Concent 30.8 L Red Cell Distribution Width 13.3 Platelet Count 175 Mean Platelet Volume 10.3 Neutrophils % 94.5 H Lymphocytes % 1.9 L Monocytes % 3.1 Eosinophils % 0.0 Basophils % 0.1 Nucleated Red Blood Cells % 0.0 Neutrophils # 13.5 H Lymphocytes # 0.3 L Monocytes # 0.5 Eosinophils # 0.0 Basophils # 0.0 Nucleated Red Blood Cells # 0.0 Sodium Level 138 Potassium Level 4.1 Chloride Level 90 L Carbon Dioxide Level 39 H Anion Gap 13 Blood Urea Nitrogen 40 H Creatinine 0.71 Glucose Level 172 Calcium Level 8.9 Phosphorus Level 4.5 Magnesium Level 2.5 Blood Gas Specimen Source Blood arterial Arterial Blood Date Drawn 10/12/2016 7:26:35 AM Arterial Blood pH (Temp corrected) 7.442 Arterial Blood pCO2 (Temp correct) 62.3 H Arterial Blood pO2 (Temp corrected) 98.4 Arterial Blood HCO3 41.6 *H Arterial Blood Base Excess 14.7 H Arterial Blood Oxygen Saturation 97.1 Elijah Test ACCEPTAB Arterial Blood Gas Puncture Site Right Radial Arterial Blood Carboxyhemoglobin 0.6 Arterial Blood Methemoglobin 0.2 Blood Gas A-a O2 Differential 42.3 H Oxyhemoglobin Percent 96.3 Total Hemoglobin 12.5 Blood Gas Temperature 37.0 Blood Gas Respiration Rate 16.0 Blood Gas Actual Respiration Rate 16 Blood Gas Modality VENT - AC FiO2 30.0 Blood Gas Tidal Volume 500.0 Blood Gas Low PEEP Setting 5.0 Blood Gas Critical Value Read Back L ILA PABON Blood Gas Notified Whom JLD Blood Gas Notified Time 10/12/2016 8:18:28 AM Medications Current Medications Acetaminophen (Tylenol Tab) 650 mg Q4H PRN PO MILD PAIN LEVEL 1-3 Last administered on 10/10/16 01:39; Admin Dose 650 MG; Start 09/29/16 at 11:00 Acetaminophen (Tylenol Tab) 1,000 mg Q4H PRN PO PAIN LEVEL 4-6/10; Start at 11:00 Amiodarone HCl (Cordarone) 200 mg DAILY PO Last administered on 10/11/16 09:06 ; Admin Dose 200 MG; Start 09/30/16 at 09:00 Ascorbic Acid (Vitamin C) 500 mg DAILY PO Last administered on 10/12/16 08:42 ; Admin Dose 500 MG; Start 09/30/16 at 09:00 Aspirin (Aspirin) 81 mg DAILY PO Last administered on 10/12/16 08:42; Admin Dose 81 MG; Start 09/30/16 at 09:00 Atorvastatin Calcium (Lipitor) 5 mg QHS PO Last administered on 10/11/16 20:35 ; Admin Dose 5 MG; Start 09/29/16 at 21:00 Bisacodyl (Dulcolax Supp) 10 mg DAILY PRN [place] CONSTIPATION; Start 09/29/16 at 11 :00 Docusate Sodium (Colace) 200 mg QHS PRN PO CONSTIPATION; Start 09/29/16 at 11: 00 Loratadine (Claritin) 10 mg DAILY PO Last administered on 10/12/16 11:25; Admin Dose 10 MG; Start 09/30/16 at 09:00 Al Hydrox/Mg Hydrox/Simethicone (Mag-Al Plus) 30 ml Q6H PO Last administered on 10/12/16 11:25; Admin Dose 30 ML; Start 09/29/16 at 11:00 Magnesium Hydroxide (Milk Of Mag) 30 ml DAILY PRN PO CONSTIPATION Last administered on 10/11/16 20:35; Admin Dose 30 ML; Start 09/29/16 at 11:00 Metoprolol Tartrate (Lopressor) 25 mg BID PO Last administered on 10/11/16 20: 35; Admin Dose 25 MG; Start 09/29/16 at 21:00 Montelukast Sodium (Singulair) 10 mg QHS PO Last administered on 10/11/16 20: 35; Admin Dose 10 MG; Start 09/29/16 at 21:00 Multivitamins Therapeutic (Theragran) 1 tab DAILY PO Last administered on 08:42; Admin Dose 1 TAB; Start 09/30/16 at 09:00 Sodium Biphosphate/ Sodium Phosphate (Fleet Enema) 118 ml prn PRN [place] CONSTIPATION; Start 09/29/16 at 11:00 Eye Lubricant (Artificial Tears Oph) 1 drop TID BOTH EYES Last administered on 10/12/16 08:41; Admin Dose 1 DROP; Start 09/29/16 at 13:00 Lactobacillus Acidophilus 1 each 1 each BID PO Last administered on 10/12/16 08:42; Admin Dose 1 EACH; Start 09/29/16 at 21:00 Fentanyl 100 ml @ 2.5 mls/hr TITRATE IV Last administered on 10/12/16 00:13; Admin Dose 10 MLS/HR; Start 09/30/16 at 07:00 Midazolam HCl (Versed) 50 ml @ 1 mls/hr TITRATE IV Last administered on 04:53; Admin Dose 10 MLS/HR; Start 09/30/16 at 07:00 Enoxaparin Sodium 40 mg 40 mg DAILY SC Last administered on 10/12/16 08:44; Admin Dose 40 MG; Start 09/30/16 at 09:00 Levofloxacin/ Dextrose (Levaquin 750 Mg/ D5W 150 ml (Pmx)) 150 ml @ 100 mls/hr Q24H IVPB Last administered on 10/12/16 08:44; Admin Dose 100 MLS/HR; Start at 09:30 Lansoprazole (Prevacid) 30 mg BID NGT Last administered on 10/12/16 08:42; Admin Dose 30 MG; Start 09/30/16 at 21:00 Lorazepam (Ativan) 0.5 mg Q8H PRN IV anxiety Last administered on 10/11/16 00: 59; Admin Dose 0.5 MG; Start 10/09/16 at 08:00 Methylprednisolone Sodium Succinate (Solu-Medrol) 60 mg BID IV Last administered on 10/12/16 08:42; Admin Dose 60 MG; Start 10/10/16 at 21:00 Quetiapine Fumarate (Seroquel) 25 mg QHS PRN NGT anxiety Last administered on 23:35; Admin Dose 25 MG; Start 10/11/16 at 21:00 Sodium Biphosphate/ Sodium Phosphate (Fleet Enema) 133 ml DAILY PRN [place] CONSTIPATION; Start 10/11/16 at 08:30 Betamethasone/ Clotrimazole (Lotrisone Cr) 1 applic BID TOP Last administered on 10/12/16 08:42; Admin Dose 1 APPLIC; Start 10/11/16 at 14:00 Nystatin 1 applic 1 applic BID TOP Last administered on 10/12/16 08:41; Admin Dose 1 APPLIC; Start 10/11/16 at 15:00 Caspofungin/ Sodium Chloride (Cancidas/NS) 250 ml @ 250 mls/hr Q24H IVPB ; Start 10/12/16 at 15:00 Nystatin 5 ml 5 ml QID PO Last administered on 10/12/16 08:42; Admin Dose 5 ML ; Start 10/11/16 at 13:58 Midazolam HCl/ Sodium Chloride (Versed/NS) 100 ml @ 1 mls/hr TITRATE IV Last administered on 10/11/16 19:22; Admin Dose 10 MLS/HR; Start 10/11/16 at 15:00 Acetazolamide (Diamox) 500 mg DAILY IV Last administered on 10/12/16 08:42; Admin Dose 500 MG; Start 10/11/16 at 17:00; Stop 10/13/16 at 09:01 Assessment/Plan Chief Complaint/Hosp Course Assessment 1. Acute on chronic hypoxemic and hypercapnic respiratory failure, failed several weaning trials 2. Probable obstructive sleep apnea 3. Systolic and diastolic dysfunction 4. Leukocytosis likely secondary to intravenous steroids. Plan 1. Continue mechanical ventilation. Repeat CPAP trial this morning. Primary care team to discuss with next of kin regarding goals of care specifically tracheostomy 2. Continue bronchodilators 3. Continue broad-spectrum antibiotics 4. Continue steroids 5. DVT and GI prophylaxis Disposition Continue ICU care hoist worker to establish family conference Critical care time 35 minutes Problems: DEM[facility] BROWN [facility], [facility] Oct 12, 2016 12:24
[2016-10-12] MEDS: CASPOFUNGIN 50 MG in SOD CHLORIDE 0.9% 250 ML IVPB SCH (15:33)
[2016-10-12] MEDS: ALBUTEROL 18 GM INHALER INH SCH ×2 (15:35→20:24)
--- NOTE | 2016-10-12 16:01 | CONS ---
Date/Time of Note Date/Time of Note DATE: 10/12/16 TIME: 16:00 Assessment/Plan Assessment/Plan Chief Complaint/Hosp Course ID PROGRESS NOTE TOTAL ABX DAY # 15 => Levaquin, Cancidas #2, oral nystatin s/p Zyvox/Merrem > DC'10/08/16 24H INTERVAL SUMMARY * More alert today -- eyes tracking, more attentive to surroundings and nursing actions * CPAP Trial - he tolerated 1Hour today -- then back on AC w/Versed * Orally intubated --- No fevers, appears stable * (+Candidiasis oral, skin, ABD/groin folds -- DM on steroids -- New orders for anti-fungal management started yesterday = (+)Back rash -- probably r/t fungal + heat laying on cotton over synthetic sheets * RESPIRATORY CULTURE Preliminary Organism 1 YEAST QUANTITY SCANT GROWTH PHYSICAL EXAMINATION: GENERAL: VSS, NAD -> Morbid obese M, no fevers HEENT: ETT/OGT secure NECK: Supple, trach-> midline CHEST: Equal chest rise bilaterally, without dyspnea on observation / Vented HEART: Pulse RRR - NSR on tele ABDOMEN: Soft, obese EXTREMITIES: Warm w/generalized dependent edema SKIN: Warm, dry ID ASSESSMENT: 56 yo obese M w/PMHx Psych-Bipolar, substance abuse (crack) admitted with: 1. Acute hypoxic respiratory failure -> Failed BIPAP, intubated 2. Healthcare-associated pneumonia, (+)aspiration PNA risk factors * Oral candidiasis RESPIRATORY CULTURE Preliminary Organism 1 YEAST QUANTITY SCANT GROWTH 3. Congestive heart failure exacerbation. 4. Suspect obesity hypoventilation syndrome vs FAY 5. COPD 6. GERD 7. Candidiasis => Oral, opportunistic respiratory sputum pathogen, dermatomycosis back, groin INVASIVES: * ETT, OGT, FC, PICC->10/06/16 ABX ALLERGIES: Vanco IV CURRENT ABX: TOTAL ABX DAY # 14 => Levaquin + Cancidas#2 s/p Zyvox/Merrem > DC10/08/16 ID RECOMMENDATIONS: 1. Continue Levaquin + + Start short course Cancidas + Oral nystatin, Lotrison topical for back, nystatin power for skin folds * (+Candidiasis oral, skin, ABD/groin folds -- DM on steroids -- New orders for anti-fungal management started yesterday * = (+)Back rash -- probably r/t fungal + heat laying on cotton over synthetic sheets 2. Watch renal fx on Diuretics, WBC rising on IV steroids . . . Problems: Consultation Date/Type/Reason Admit Date/Time Sep 29, 2016 at 09:25 Type of Consultation: ID Exam/Review of Systems Vital Signs Vitals Vital Signs Date Time Temp Pulse Resp B/P Pulse Ox O2 Delivery O2 Flow Rate FiO2 10/12/16 15:00 79 16 97/68 98 Mechanical Ventilator 10/12/16 12:00 97.9 10/12/16 11:07 30 Intake and Output 10/11/16 10/11/16 10/12/16 15:00 23:00 07:00 Intake Total 780 ml 900 ml 610 ml Output Total 983 ml 1800 ml 1270 ml Balance -203 ml -900 ml -660 ml Results Result Diagram: 10/12/16 0405 10/12/16 0405 Results 24 hrs Laboratory Tests Test 10/12/16 04:05 10/12/16 07:00 White Blood Count 14.3 H Red Blood Count 3.55 L Hemoglobin 10.8 L Hematocrit 35.1 L Mean Corpuscular Volume 98.9 Mean Corpuscular Hemoglobin 30.4 Mean Corpuscular Hemoglobin Concent 30.8 L Red Cell Distribution Width 13.3 Platelet Count 175 Mean Platelet Volume 10.3 Neutrophils % 94.5 H Lymphocytes % 1.9 L Monocytes % 3.1 Eosinophils % 0.0 Basophils % 0.1 Nucleated Red Blood Cells % 0.0 Neutrophils # 13.5 H Lymphocytes # 0.3 L Monocytes # 0.5 Eosinophils # 0.0 Basophils # 0.0 Nucleated Red Blood Cells # 0.0 Sodium Level 138 Potassium Level 4.1 Chloride Level 90 L Carbon Dioxide Level 39 H Anion Gap 13 Blood Urea Nitrogen 40 H Creatinine 0.71 Glucose Level 172 Calcium Level 8.9 Phosphorus Level 4.5 Magnesium Level 2.5 Blood Gas Specimen Source Blood arterial Arterial Blood Date Drawn 10/12/2016 7:26:35 AM Arterial Blood pH (Temp corrected) 7.442 Arterial Blood pCO2 (Temp correct) 62.3 H Arterial Blood pO2 (Temp corrected) 98.4 Arterial Blood HCO3 41.6 *H Arterial Blood Base Excess 14.7 H Arterial Blood Oxygen Saturation 97.1 Elijah Test ACCEPTAB Arterial Blood Gas Puncture Site Right Radial Arterial Blood Carboxyhemoglobin 0.6 Arterial Blood Methemoglobin 0.2 Blood Gas A-a O2 Differential 42.3 H Oxyhemoglobin Percent 96.3 Total Hemoglobin 12.5 Blood Gas Temperature 37.0 Blood Gas Respiration Rate 16.0 Blood Gas Actual Respiration Rate 16 Blood Gas Modality VENT - AC FiO2 30.0 Blood Gas Tidal Volume 500.0 Blood Gas Low PEEP Setting 5.0 Blood Gas Critical Value Read Back L ILA RN Blood Gas Notified Whom SUSAND Blood Gas Notified Time 10/12/2016 8:18:28 AM Medications Medications Current Medications Acetaminophen (Tylenol Tab) 650 mg Q4H PRN PO MILD PAIN LEVEL 1-3 Last administered on 10/10/16 01:39; Admin Dose 650 MG; Start 09/29/16 at 11:00 Acetaminophen (Tylenol Tab) 1,000 mg Q4H PRN PO PAIN LEVEL 4-6/10; Start at 11:00 Amiodarone HCl (Cordarone) 200 mg DAILY PO Last administered on 10/11/16 09:06 ; Admin Dose 200 MG; Start 09/30/16 at 09:00 Ascorbic Acid (Vitamin C) 500 mg DAILY PO Last administered on 10/12/16 08:42 ; Admin Dose 500 MG; Start 09/30/16 at 09:00 Aspirin (Aspirin) 81 mg DAILY PO Last administered on 10/12/16 08:42; Admin Dose 81 MG; Start 09/30/16 at 09:00 Atorvastatin Calcium (Lipitor) 5 mg QHS PO Last administered on 10/11/16 20:35 ; Admin Dose 5 MG; Start 09/29/16 at 21:00 Bisacodyl (Dulcolax Supp) 10 mg DAILY PRN [place] CONSTIPATION; Start 09/29/16 at 11 :00 Docusate Sodium (Colace) 200 mg QHS PRN PO CONSTIPATION; Start 09/29/16 at 11: 00 Loratadine (Claritin) 10 mg DAILY PO Last administered on 10/12/16 11:25; Admin Dose 10 MG; Start 09/30/16 at 09:00 Al Hydrox/Mg Hydrox/Simethicone (Mag-Al Plus) 30 ml Q6H PO Last administered on 10/12/16 11:25; Admin Dose 30 ML; Start 09/29/16 at 11:00 Magnesium Hydroxide (Milk Of Mag) 30 ml DAILY PRN PO CONSTIPATION Last administered on 10/11/16 20:35; Admin Dose 30 ML; Start 09/29/16 at 11:00 Metoprolol Tartrate (Lopressor) 25 mg BID PO Last administered on 10/11/16 20: 35; Admin Dose 25 MG; Start 09/29/16 at 21:00 Montelukast Sodium (Singulair) 10 mg QHS PO Last administered on 10/11/16 20: 35; Admin Dose 10 MG; Start 09/29/16 at 21:00 Multivitamins Therapeutic (Theragran) 1 tab DAILY PO Last administered on 08:42; Admin Dose 1 TAB; Start 09/30/16 at 09:00 Sodium Biphosphate/ Sodium Phosphate (Fleet Enema) 118 ml prn PRN [place] CONSTIPATION; Start 09/29/16 at 11:00 Eye Lubricant (Artificial Tears Oph) 1 drop TID BOTH EYES Last administered on 10/12/16 14:52; Admin Dose 1 DROP; Start 09/29/16 at 13:00 Lactobacillus Acidophilus 1 each 1 each BID PO Last administered on 10/12/16 08:42; Admin Dose 1 EACH; Start 09/29/16 at 21:00 Fentanyl 100 ml @ 2.5 mls/hr TITRATE IV Last administered on 10/12/16 12:28; Admin Dose 5 MLS/HR; Start 09/30/16 at 07:00 Midazolam HCl (Versed) 50 ml @ 1 mls/hr TITRATE IV Last administered on 14:52; Admin Dose 5 MLS/HR; Start 09/30/16 at 07:00 Enoxaparin Sodium 40 mg 40 mg DAILY SC Last administered on 10/12/16 08:44; Admin Dose 40 MG; Start 09/30/16 at 09:00 Levofloxacin/ Dextrose (Levaquin 750 Mg/ D5W 150 ml (Pmx)) 150 ml @ 100 mls/hr Q24H IVPB Last administered on 10/12/16 08:44; Admin Dose 100 MLS/HR; Start at 09:30 Lansoprazole (Prevacid) 30 mg BID NGT Last administered on 10/12/16 08:42; Admin Dose 30 MG; Start 09/30/16 at 21:00 Lorazepam (Ativan) 0.5 mg Q8H PRN IV anxiety Last administered on 10/11/16 00: 59; Admin Dose 0.5 MG; Start 10/09/16 at 08:00 Methylprednisolone Sodium Succinate (Solu-Medrol) 60 mg BID IV Last administered on 10/12/16 08:42; Admin Dose 60 MG; Start 10/10/16 at 21:00 Quetiapine Fumarate (Seroquel) 25 mg QHS PRN NGT anxiety Last administered on 23:35; Admin Dose 25 MG; Start 10/11/16 at 21:00 Sodium Biphosphate/ Sodium Phosphate (Fleet Enema) 133 ml DAILY PRN [place] CONSTIPATION; Start 10/11/16 at 08:30 Betamethasone/ Clotrimazole (Lotrisone Cr) 1 applic BID TOP Last administered on 10/12/16 08:42; Admin Dose 1 APPLIC; Start 10/11/16 at 14:00 Nystatin 1 applic 1 applic BID TOP Last administered on 10/12/16 08:41; Admin Dose 1 APPLIC; Start 10/11/16 at 15:00 Caspofungin/ Sodium Chloride (Cancidas/NS) 250 ml @ 250 mls/hr Q24H IVPB Last administered on 10/12/16 15:33; Admin Dose 250 MLS/HR; Start 10/12/16 at 15:00 Nystatin 5 ml 5 ml QID PO Last administered on 10/12/16 14:52; Admin Dose 5 ML ; Start 10/11/16 at 13:58 Midazolam HCl/ Sodium Chloride (Versed/NS) 100 ml @ 1 mls/hr TITRATE IV Last administered on 10/11/16 19:22; Admin Dose 10 MLS/HR; Start 10/11/16 at 15:00 Acetazolamide (Diamox) 500 mg DAILY IV Last administered on 10/12/16 08:42; Admin Dose 500 MG; Start 10/11/16 at 17:00; Stop 10/13/16 at 09:01 RAUL GOMEZ NP Oct 12, 2016 16:01
--- NOTE | 2016-10-12 18:15 | PN ---
DATE: 10/12/2016 CARDIOLOGY FOLLOWUP SUBJECTIVE: Discussed with the staff. Rhythm strip was reviewed. The patient remains in sinus syn drome, history of atrial fibrillation, remains intubated on the vent. Unable to wean off. Still on CPAP again today. Unable to provide history, currently intubated. MEDICATIONS: Reviewed. PHYSICAL EXAMINATION: VITAL SIGNS: Temperature 97.9, heart rate of 72, blood pressure 97/68, respiration rate of 16, satu rating 98%. HEENT: Normocephalic, atraumatic. Obese gentleman. Pupils equal, round. Status post intubation o n the vent. CARDIOVASCULAR: Regular rate and rhythm, systolic murmur. PULMONARY: Mild rhonchi. GASTROINTESTINAL: Soft, obese, nontender. EXTREMITIES: Positive edema. NEUROLOGIC: Awake and appeared to be alert. Chest x-ray shows no significant change. I's and O's are 2230 in and 4253 out. LABORATORY: WBC of 14.3, hemoglobin 10.8, platelets 175. Sodium 138, potassium 4.1, BUN of 40, cre atinine 0.71, CO2 of 39. ASSESSMENT AND PLAN: 1. Hypercapnic respiratory failure, status post tracheostomy, intubation on the vent. 2. Congestive heart failure/fluid overload. 3. Morbid obesity. 4. Likely obstructive sleep apnea. 5. Chronic obstructive pulmonary disease. 6. Paroxysmal atrial fibrillation, currently sinus. 7. Hypertension. 8. Pneumonia. RECOMMENDATIONS: We will continue with the current cardiac care. Has failed multiple CPAP trials. Diamox will be continued for now. Follow renal function. Continue with the ICU care. Dictated By: BRENTON SAVAGE/ALYSON Conf#: [id number] DID#: [id number] CC: RAMY DOMINGUEZ DO;*EndCC*
[2016-10-12] MEDS: QUETIAPINE 25 MG TAB NGT PRN (21:08)
[2016-10-12] MEDS: MONTELUKAST 10 MG TAB PO SCH (21:08)
[2016-10-12] MEDS: ATORVASTATIN 10 MG TAB PO SCH (21:08)
[2016-10-12] MEDS: MIDAZOLAM DRIP 1 MG/ML in NS 100 ML IV SCH (21:11)
[2016-10-13] VITALS (48 sets, daily range): BP systolic 90–128; BP diastolic 54–99; PULSE 57–76; RESP 13–21
[2016-10-13] MEDS: FENTAnyl (DRIP) 1000 mcg/100mL 100 ML IV SCH ×3 (00:01→20:40)
[2016-10-13] MEDS: ALBUTEROL 18 GM INHALER INH SCH ×4 (01:35→20:18)
[2016-10-13] MEDS: AL HYDROX/MG HYDROX/SIMETH 30 ML CUP PO SCH ×4 (04:59→23:15)
[2016-10-13] MEDS: FUROSEMIDE 40 MG INJ IV SCH (05:00)
[2016-10-13 05:31] LABS: ADD SCAN DIFF NO
[2016-10-13 05:35] LABS: ABNORMAL IP MESSAGE 1; HEMATOCRIT 32.3 % (42.0-52.0); HEMOGLOBIN 10.3 g/dl (14.0-18.0); LYMPHOCYTES # 0.2 10^3/ul (0.8-2.9); LYMPHOCYTES % 1.7 % (15.0-51.0); MEAN CORPUSCULAR HEMOGLOBIN 30.8 pg (29.0-33.0); MEAN CORPUSCULAR HGB CONC 31.9 g/dl (32.0-37.0); MEAN CORPUSCULAR VOLUME 96.7 fl (82.0-101.0); MEAN PLATELET VOLUME 10.6 fl (7.4-10.4); MONOCYTE # 0.2 10^3/ul (0.3-0.9); MONOCYTES % 1.8 % (0.0-11.0); PLATELET COUNT 153 10^3/UL (140-415); RED BLOOD COUNT 3.34 10^6/ul (4.70-6.10); RED CELL DISTRIBUTION WIDTH 13.1 % (11.5-14.5); WHITE BLOOD COUNT 11.5 10^3/ul (4.8-10.8)
[2016-10-13 05:59] LABS: CALCIUM 8.7 mg/dl (8.4-10.2); CREATININE 0.72 mg/dl (0.61-1.24); MAGNESIUM 2.4 mg/dl (1.7-2.5); PHOSPHORUS 3.6 mg/dl (2.5-4.9)
[2016-10-13] MEDS: MIDAZOLAM DRIP 1 MG/ML in NS 100 ML IV SCH ×2 (07:26→17:30)
[2016-10-13] MEDS: ACETAZOLAMIDE 500 MG INJ IV SCH (08:44)
[2016-10-13] MEDS: ARTIFICIAL TEARS 15 ML OPH BOTH EYES SCH ×3 (08:44→20:51)
[2016-10-13] MEDS: METHYLPREDNISOLONE 125 MG INJ IV SCH ×2 (08:44→20:52)
[2016-10-13] MEDS: ASPIRIN 81 MG TAB PO SCH (08:44)
[2016-10-13] MEDS: LANSOPRAZOLE 30 MG CAP NGT SCH ×2 (08:44→20:53)
[2016-10-13] MEDS: LORATADINE 10 MG TAB PO SCH (08:45)
[2016-10-13] MEDS: NYSTATIN SUSP 5 ML CUP PO SCH ×4 (08:45→20:55)
[2016-10-13] MEDS: AMIODARONE 200 MG TAB PO SCH (08:45)
[2016-10-13] MEDS: METOPROLOL 25 MG TAB PO SCH ×2 (08:45→20:54)
[2016-10-13] MEDS: MULTIVITAMINS THERAPEUTIC TAB PO SCH (08:46)
[2016-10-13] MEDS: ASCORBIC ACID 500 MG TAB PO SCH (08:46)
[2016-10-13] MEDS: ENOXAPARIN 40 MG/0.4 ML SYG SC SCH (08:46)
[2016-10-13] MEDS: BETAMETHASONE/CLOTRIMAZOLE 15 GM CR TOP SCH ×2 (08:46→20:55)
[2016-10-13] MEDS: NYSTATIN 30 GM POWDER BTL TOP SCH ×2 (08:47→20:55)
[2016-10-13] MEDS: LEVOFLOXACIN 750MG/D5W (PMX) 150 ML IVPB SCH (08:47)
[2016-10-13] MEDS: L ACIDOPHIL/B LACTIS/B LONGUM CAPSULE PO SCH ×2 (08:51→20:53)
--- NOTE | 2016-10-13 09:30 | PN ---
DATE: 10/13/2016 SUBJECTIVE: The patient unfortunately continues to fail weaning trials. The patient may require tra ch placement. Discussed the case with fluorescent lamp replacer. No other events noted. No hemoptysis, hemateme sis, hematochezia. OBJECTIVE: VITAL SIGNS: Blood pressure is 90/58, respiration 16, pulse 69, temperature 98.7. I's AND O'S: The patient 2 liters in, 5.4 liters out. HEENT: Head is normocephalic. NECK: Supple. HEART: Regular rate. LUNGS: Show diminished breath sounds at the base. ABDOMEN: Soft, nontender to palpation. No rebound or guarding. EXTREMITIES: Negative for clubbing, cyanosis. Positive edema. DERMATOLOGIC: No rashes. MUSCULOSKELETAL: No joint effusions. NEUROLOGIC: No change in exam. MEDICATIONS: Reviewed. LABORATORY DATA: Shows a sodium 134, potassium 4.0, chloride 91, bicarbonate 37, BUN 33, creatinine 0.72. White count 11.5, hemoglobin 10.3, hematocrit 32.3, platelet count was 53. The patient's AB G was reviewed. The patient is pH 7.442 with a pCO2 of 62. IMAGING: Chest x-ray shows no significant change. ASSESSMENT AND PLAN: 1. Ventilatory-dependent respiratory failure. Etiology secondary to chronic obstructive pulmonary d isease exacerbation, chronic lung disease and ____ congestive heart failure. The patient has failed multiple weaning trials. The patient may require trach placement. Will discuss the case with pulm martina. We will follow up their recommendations. 2. Acute diastolic heart failure. The patient is clinically improving, patient is nearing euvolemi c status. We will adjust diuretic regimen, will decrease Lasix to 20 mg IV daily. Continue Diamox. Monitor closely. 3. Mild hyponatremia. At this point will continue to monitor. We will decrease free water flushes. 4. Sepsis secondary to pneumonia. Patient is completing antibiotic course. Continue current medic al management. Follow up with Infectious Disease. The patient is on antifungal therapy. 6. Leukocytosis secondary to sepsis, steroids. The patient is improving. Continue to monitor. 7. Acute encephalopathy secondary to hypercapnic, continue to monitor. 8. Insomnia agitation. Continue Seroquel and Ativan p.r.n. 9. Anemia. Continue to monitor hemoglobin and hematocrit levels. 10. Mixed acid base disorder. The patient has a respiratory acidosis and metabolic alkalosis. The patient is currently on Diamox, continue to monitor ABGs. 11. Coronary artery disease. Continue medical management. 12. Azotemia. Etiology secondary to underlying diuretic therapy and hypercatabolic state. Continue to monitor. 13. Bipolar disorder. Continue Seroquel p.r.n. 14. Hypertension. The patient is hypotensive, likely due to recent diuretic therapy. We will jocelyne tor closely. Parameters will be placed on blood pressure medications. 15. Dysphagia. Continue tube feeding. 16. Gastrointestinal and deep venous thrombosis prophylaxis. Continue proton pump inhibitor and Lo venox. Please note I spent over 30 minutes of critical care time with this patient. Dictated By: RAYM PERRY/ALYSON Conf#: [id number] DID#: [id number]
--- NOTE | 2016-10-13 10:10 | PN ---
DATE: 10/13/2016 CARDIOLOGY FOLLOWUP SUBJECTIVE: The patient remains in sinus rhythm, intubated on the vent. Discussed with the staff. Rhythm strip was reviewed. Has been responding well to diuresis. MEDICATIONS: Reviewed as per medication reconciliation, personally reviewed. PHYSICAL EXAMINATION: VITAL SIGNS: Temperature 98.5, heart rate of 69, blood pressure 98/58, respiratory rate of 16. HEENT: Normocephalic, atraumatic. Obese gentleman. Status post intubation on the vent. EYES: Pup ils equal and round. CARDIOVASCULAR: Regular rate and rhythm, systolic murmur. PULMONARY: With mild rhonchi, diffuse. GASTROINTESTINAL: Obese, soft, nontender. EXTREMITIES: Positive lower extremity edema, bilateral. NEUROLOGIC: Sedated. PSYCHIATRIC: Appears to be calm. LABORATORY: Sodium 134, potassium 4, BUN of 33, creatinine 0.72. CO2 of 37. Magnesium is 2.4. WB C of 11.5, hemoglobin 10.3, platelet 153. ASSESSMENT AND PLAN: 1. Hypoxemia and hypercapnic respiratory failure, status post intubation on the vent, difficult to wean off. 2. Congestive heart failure, acute on chronic, secondary to diastolic dysfunction and fluid overloa d, currently responding well to diuresis and all Linda been negative to date. 3. Anemia, stable now. 4. History of paroxysmal atrial fibrillation, currently remains in sinus rhythm. 5. History of azotemia, currently stable. 6. Psychiatric disorder, bipolar disorder. 7. Hypertension, currently on hypotensive side. 8. Chronic obstructive pulmonary disease. 9. Likely obstructive sleep apnea. 10. Pneumonia. RECOMMENDATIONS: Continue with the respiratory care, respiratory support. We will continue with the current dose of diuresis. Steroid management as per internal medicine and pulmonary team. Trach m ay need to be considered if the patient is not able to be weaned off. Continue with the ICU care. Dictated By: BRENTON SAVAGE/ALYSON Conf#: [id number] DID#: [id number] CC: RAMY DOMINGUEZ DO;*EndCC*
--- NOTE | 2016-10-13 10:11 | CONS ---
Date/Time of Note Date/Time of Note DATE: 10/13/16 TIME: 10:09 Consult Date/Type/Reason Admit Date/Time Sep 29, 2016 at 09:25 Type of Consultation: pulmonary ICU Subjective Patient remains comfortable today on mechanical ventilation failed CPAP weaning trial yesterday Objective Vital Signs Date Time Temp Pulse Resp B/P Pulse Ox O2 Delivery O2 Flow Rate FiO2 10/13/16 08:38 69 16 99 30 10/13/16 06:30 98/58 10/13/16 06:00 Mechanical Ventilator 10/13/16 04:00 98.5 Intake and Output 10/12/16 10/12/16 10/13/16 15:00 23:00 07:00 Intake Total 610 ml 920 ml 620 ml Output Total 1625 ml 2410 ml 1415 ml Balance -1015 ml -1490 ml -795 ml Exam PHYSICAL EXAMINATION GENERAL: Elderly gentleman, intubated on mechanical ventilation, opens eyes and appears somewhat agitated. Orally intubated. VITAL SIGNS: see below. HEENT: Pupils equal, round, and reactive to light. CARDIAC: S1, S2, tachycardia. CHEST: Diminished air entry bilaterally. ABDOMEN: Mildly distended. Bowel sounds present no guarding or rebound EXTREMITIES: No cyanosis, clubbing edema +1 NEUROLOGIC: No focal deficits. Results/Medications Result Diagram: 10/13/16 0330 10/13/16 0340 Results 24 hrs Chest x-ray Improved aeration bilaterally Laboratory Tests Test 10/13/16 03:30 10/13/16 03:40 White Blood Count 11.5 H Red Blood Count 3.34 L Hemoglobin 10.3 L Hematocrit 32.3 L Mean Corpuscular Volume 96.7 Mean Corpuscular Hemoglobin 30.8 Mean Corpuscular Hemoglobin Concent 31.9 L Red Cell Distribution Width 13.1 Platelet Count 153 Mean Platelet Volume 10.6 H Neutrophils % 96.0 H Lymphocytes % 1.7 L Monocytes % 1.8 Eosinophils % 0.0 Basophils % 0.0 Nucleated Red Blood Cells % 0.0 Neutrophils # 11.0 H Lymphocytes # 0.2 L Monocytes # 0.2 L Eosinophils # 0.0 Basophils # 0.0 Nucleated Red Blood Cells # 0.0 Sodium Level 134 L Potassium Level 4.0 Chloride Level 91 L Carbon Dioxide Level 37 H Anion Gap 10 Blood Urea Nitrogen 33 H Creatinine 0.72 Glucose Level 178 Calcium Level 8.7 Phosphorus Level 3.6 Magnesium Level 2.4 Medications Current Medications Acetaminophen (Tylenol Tab) 650 mg Q4H PRN PO MILD PAIN LEVEL 1-3 Last administered on 10/10/16 01:39; Admin Dose 650 MG; Start 09/29/16 at 11:00 Acetaminophen (Tylenol Tab) 1,000 mg Q4H PRN PO PAIN LEVEL 4-6/10; Start at 11:00 Amiodarone HCl (Cordarone) 200 mg DAILY PO Last administered on 10/13/16 08:45 ; Admin Dose 200 MG; Start 09/30/16 at 09:00 Ascorbic Acid (Vitamin C) 500 mg DAILY PO Last administered on 10/13/16 08:46 ; Admin Dose 500 MG; Start 09/30/16 at 09:00 Aspirin (Aspirin) 81 mg DAILY PO Last administered on 10/13/16 08:44; Admin Dose 81 MG; Start 09/30/16 at 09:00 Atorvastatin Calcium (Lipitor) 5 mg QHS PO Last administered on 10/12/16 21:08 ; Admin Dose 5 MG; Start 09/29/16 at 21:00 Bisacodyl (Dulcolax Supp) 10 mg DAILY PRN [place] CONSTIPATION; Start 09/29/16 at 11 :00 Docusate Sodium (Colace) 200 mg QHS PRN PO CONSTIPATION; Start 09/29/16 at 11: 00 Loratadine (Claritin) 10 mg DAILY PO Last administered on 10/13/16 08:45; Admin Dose 10 MG; Start 09/30/16 at 09:00 Al Hydrox/Mg Hydrox/Simethicone (Mag-Al Plus) 30 ml Q6H PO Last administered on 10/13/16 04:59; Admin Dose 30 ML; Start 09/29/16 at 11:00 Magnesium Hydroxide (Milk Of Mag) 30 ml DAILY PRN PO CONSTIPATION Last administered on 10/11/16 20:35; Admin Dose 30 ML; Start 09/29/16 at 11:00 Metoprolol Tartrate (Lopressor) 25 mg BID PO Last administered on 10/12/16 21: 09; Admin Dose 25 MG; Start 09/29/16 at 21:00 Montelukast Sodium (Singulair) 10 mg QHS PO Last administered on 10/12/16 21: 08; Admin Dose 10 MG; Start 09/29/16 at 21:00 Multivitamins Therapeutic (Theragran) 1 tab DAILY PO Last administered on 08:46; Admin Dose 1 TAB; Start 09/30/16 at 09:00 Sodium Biphosphate/ Sodium Phosphate (Fleet Enema) 118 ml prn PRN [place] CONSTIPATION; Start 09/29/16 at 11:00 Eye Lubricant (Artificial Tears Oph) 1 drop TID BOTH EYES Last administered on 10/13/16 08:44; Admin Dose 1 DROP; Start 09/29/16 at 13:00 Lactobacillus Acidophilus 1 each 1 each BID PO Last administered on 10/13/16 08:51; Admin Dose 1 EACH; Start 09/29/16 at 21:00 Fentanyl (Sublimaze) 100 ml @ 2.5 mls/hr TITRATE IV Last administered on 00:01; Admin Dose 10 MLS/HR; Start 09/30/16 at 07:00 Enoxaparin Sodium 40 mg 40 mg DAILY SC Last administered on 10/13/16 08:46; Admin Dose 40 MG; Start 09/30/16 at 09:00 Levofloxacin/ Dextrose (Levaquin 750 Mg/ D5W 150 ml (Pmx)) 150 ml @ 100 mls/hr Q24H IVPB Last administered on 10/13/16 08:47; Admin Dose 100 MLS/HR; Start at 09:30 Lansoprazole (Prevacid) 30 mg BID NGT Last administered on 10/13/16 08:44; Admin Dose 30 MG; Start 09/30/16 at 21:00 Lorazepam (Ativan) 0.5 mg Q8H PRN IV anxiety Last administered on 10/11/16 00: 59; Admin Dose 0.5 MG; Start 10/09/16 at 08:00 Methylprednisolone Sodium Succinate (Solu-Medrol) 60 mg BID IV Last administered on 10/13/16 08:44; Admin Dose 60 MG; Start 10/10/16 at 21:00 Quetiapine Fumarate (Seroquel) 25 mg QHS PRN NGT anxiety Last administered on 21:08; Admin Dose 25 MG; Start 10/11/16 at 21:00 Sodium Biphosphate/ Sodium Phosphate (Fleet Enema) 133 ml DAILY PRN [place] CONSTIPATION; Start 10/11/16 at 08:30 Betamethasone/ Clotrimazole (Lotrisone Cr) 1 applic BID TOP Last administered on 10/13/16 08:46; Admin Dose 1 APPLIC; Start 10/11/16 at 14:00 Nystatin 1 applic 1 applic BID TOP Last administered on 10/13/16 08:47; Admin Dose 1 APPLIC; Start 10/11/16 at 15:00 Caspofungin/ Sodium Chloride (Cancidas/NS) 250 ml @ 250 mls/hr Q24H IVPB Last administered on 10/12/16 15:33; Admin Dose 250 MLS/HR; Start 10/12/16 at 15:00 Nystatin 5 ml 5 ml QID PO Last administered on 10/13/16 08:45; Admin Dose 5 ML ; Start 10/11/16 at 13:58 Midazolam HCl/ Sodium Chloride (Versed/NS) 100 ml @ 1 mls/hr TITRATE IV Last administered on 10/13/16 07:26; Admin Dose 10 MLS/HR; Start 10/11/16 at 15:00 Furosemide (Lasix) 20 mg DAILY IV ; Start 10/14/16 at 09:00 Assessment/Plan Chief Complaint/Hosp Course Assessment 1. Acute on chronic hypoxemic and hypercapnic respiratory failure, failed several weaning trials. 2. Probable obstructive sleep apnea 3. Systolic and diastolic dysfunction 4. Leukocytosis likely secondary to intravenous steroids. Improved. Plan 1. Continue mechanical ventilation. Patient will need tracheostomy. Intermediate next of kin to be involved in decision-making according to nursing staff. We'll attempt to contact patient's alternative decision-makers otherwise will require bioethics consultation. 2. Continue bronchodilators 3. Continue broad-spectrum antibiotics 4. Continue steroids slow taper 5. 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
[2016-10-13] MEDS: CASPOFUNGIN 50 MG in SOD CHLORIDE 0.9% 250 ML IVPB SCH (15:31)
--- NOTE | 2016-10-13 16:16 | CONS ---
Date/Time of Note Date/Time of Note DATE: 10/13/16 TIME: 16:15 Assessment/Plan Assessment/Plan Chief Complaint/Hosp Course ID PROGRESS NOTE TOTAL ABX DAY # 16 => Levaquin, Cancidas #3, oral nystatin s/p Zyvox/Merrem > DC'10/08/16 24H INTERVAL SUMMARY * Clinically status quo -- opens eyes * Orally intubated --- No fevers, appears stable * (+Candidiasis oral, skin, ABD/groin folds -- DM on steroids -- New orders for anti-fungal management started yesterday = (+)Back rash -- probably r/t fungal + heat laying on cotton over synthetic sheets * RESPIRATORY CULTURE Preliminary Organism 1 YEAST QUANTITY SCANT GROWTH PHYSICAL EXAMINATION: GENERAL: VSS, NAD -> Morbid obese M, no fevers HEENT: ETT/OGT secure NECK: Supple, trach-> midline CHEST: Equal chest rise bilaterally, without dyspnea on observation / Vented HEART: Pulse RRR - NSR on tele ABDOMEN: Soft, obese EXTREMITIES: Warm w/generalized dependent edema SKIN: Warm, dry ID ASSESSMENT: 56 yo obese M w/PMHx Psych-Bipolar, substance abuse (crack) admitted with: 1. Acute hypoxic respiratory failure -> Failed BIPAP, intubated 2. Healthcare-associated pneumonia, (+)aspiration PNA risk factors * Oral candidiasis RESPIRATORY CULTURE Preliminary Organism 1 YEAST QUANTITY SCANT GROWTH 3. Congestive heart failure exacerbation. 4. Suspect obesity hypoventilation syndrome vs FAY 5. COPD 6. GERD 7. Candidiasis => Oral, opportunistic respiratory sputum pathogen, dermatomycosis back, groin INVASIVES: * ETT, OGT, FC, PICC->10/06/16 ABX ALLERGIES: Vanco IV CURRENT ABX: TOTAL ABX DAY # 15 => Levaquin + Cancidas #3 s/p Zyvox/Merrem > DC'10/08/16 ID RECOMMENDATIONS: 1. Continue Levaquin + Started on short course Cancidas + Oral nystatin, Lotrisone topical for back, nystatin power for skin folds * (+Candidiasis oral, skin, ABD/groin folds -- DM on steroids -- New orders for anti-fungal management started yesterday * = (+)Back rash -- probably r/t fungal + heat laying on cotton over synthetic sheets 2. Watch renal fx on Diuretics, WBC rising on IV steroids . . . Problems: Consultation Date/Type/Reason Admit Date/Time Sep 29, 2016 at 09:25 Type of Consultation: ID Exam/Review of Systems Vital Signs Vitals Vital Signs Date Time Temp Pulse Resp B/P Pulse Ox O2 Delivery O2 Flow Rate FiO2 10/13/16 15:10 62 16 97 30 10/13/16 14:00 93/65 Mechanical Ventilator 10/13/16 12:00 97.9 Intake and Output 10/12/16 10/12/16 10/13/16 15:00 23:00 07:00 Intake Total 610 ml 920 ml 700 ml Output Total 1625 ml 2410 ml 1590 ml Balance -1015 ml -1490 ml -890 ml Results Result Diagram: 10/13/16 0330 10/13/16 0340 Results 24 hrs Laboratory Tests Test 10/13/16 03:30 10/13/16 03:40 White Blood Count 11.5 H Red Blood Count 3.34 L Hemoglobin 10.3 L Hematocrit 32.3 L Mean Corpuscular Volume 96.7 Mean Corpuscular Hemoglobin 30.8 Mean Corpuscular Hemoglobin Concent 31.9 L Red Cell Distribution Width 13.1 Platelet Count 153 Mean Platelet Volume 10.6 H Neutrophils % 96.0 H Lymphocytes % 1.7 L Monocytes % 1.8 Eosinophils % 0.0 Basophils % 0.0 Nucleated Red Blood Cells % 0.0 Neutrophils # 11.0 H Lymphocytes # 0.2 L Monocytes # 0.2 L Eosinophils # 0.0 Basophils # 0.0 Nucleated Red Blood Cells # 0.0 Sodium Level 134 L Potassium Level 4.0 Chloride Level 91 L Carbon Dioxide Level 37 H Anion Gap 10 Blood Urea Nitrogen 33 H Creatinine 0.72 Glucose Level 178 Calcium Level 8.7 Phosphorus Level 3.6 Magnesium Level 2.4 Medications Medications Current Medications Acetaminophen (Tylenol Tab) 650 mg Q4H PRN PO MILD PAIN LEVEL 1-3 Last administered on 10/10/16 01:39; Admin Dose 650 MG; Start 09/29/16 at 11:00 Acetaminophen (Tylenol Tab) 1,000 mg Q4H PRN PO PAIN LEVEL 4-6/10; Start at 11:00 Amiodarone HCl (Cordarone) 200 mg DAILY PO Last administered on 10/13/16 08:45 ; Admin Dose 200 MG; Start 09/30/16 at 09:00 Ascorbic Acid (Vitamin C) 500 mg DAILY PO Last administered on 10/13/16 08:46 ; Admin Dose 500 MG; Start 09/30/16 at 09:00 Aspirin (Aspirin) 81 mg DAILY PO Last administered on 10/13/16 08:44; Admin Dose 81 MG; Start 09/30/16 at 09:00 Atorvastatin Calcium (Lipitor) 5 mg QHS PO Last administered on 10/12/16 21:08 ; Admin Dose 5 MG; Start 09/29/16 at 21:00 Bisacodyl (Dulcolax Supp) 10 mg DAILY PRN [place] CONSTIPATION; Start 09/29/16 at 11 :00 Docusate Sodium (Colace) 200 mg QHS PRN PO CONSTIPATION; Start 09/29/16 at 11: 00 Loratadine (Claritin) 10 mg DAILY PO Last administered on 10/13/16 08:45; Admin Dose 10 MG; Start 09/30/16 at 09:00 Al Hydrox/Mg Hydrox/Simethicone (Mag-Al Plus) 30 ml Q6H PO Last administered on 10/13/16 11:01; Admin Dose 30 ML; Start 09/29/16 at 11:00 Magnesium Hydroxide (Milk Of Mag) 30 ml DAILY PRN PO CONSTIPATION Last administered on 10/11/16 20:35; Admin Dose 30 ML; Start 09/29/16 at 11:00 Metoprolol Tartrate (Lopressor) 25 mg BID PO Last administered on 10/12/16 21: 09; Admin Dose 25 MG; Start 09/29/16 at 21:00 Montelukast Sodium (Singulair) 10 mg QHS PO Last administered on 10/12/16 21: 08; Admin Dose 10 MG; Start 09/29/16 at 21:00 Multivitamins Therapeutic (Theragran) 1 tab DAILY PO Last administered on 08:46; Admin Dose 1 TAB; Start 09/30/16 at 09:00 Sodium Biphosphate/ Sodium Phosphate (Fleet Enema) 118 ml prn PRN [place] CONSTIPATION; Start 09/29/16 at 11:00 Eye Lubricant (Artificial Tears Oph) 1 drop TID BOTH EYES Last administered on 10/13/16 14:07; Admin Dose 1 DROP; Start 09/29/16 at 13:00 Lactobacillus Acidophilus 1 each 1 each BID PO Last administered on 10/13/16 08:51; Admin Dose 1 EACH; Start 09/29/16 at 21:00 Fentanyl (Sublimaze) 100 ml @ 2.5 mls/hr TITRATE IV Last administered on 11:01; Admin Dose 10 MLS/HR; Start 09/30/16 at 07:00 Enoxaparin Sodium 40 mg 40 mg DAILY SC Last administered on 10/13/16 08:46; Admin Dose 40 MG; Start 09/30/16 at 09:00 Levofloxacin/ Dextrose (Levaquin 750 Mg/ D5W 150 ml (Pmx)) 150 ml @ 100 mls/hr Q24H IVPB Last administered on 10/13/16 08:47; Admin Dose 100 MLS/HR; Start at 09:30 Lansoprazole (Prevacid) 30 mg BID NGT Last administered on 10/13/16 08:44; Admin Dose 30 MG; Start 09/30/16 at 21:00 Lorazepam (Ativan) 0.5 mg Q8H PRN IV anxiety Last administered on 10/11/16 00: 59; Admin Dose 0.5 MG; Start 10/09/16 at 08:00 Methylprednisolone Sodium Succinate (Solu-Medrol) 60 mg BID IV Last administered on 10/13/16 08:44; Admin Dose 60 MG; Start 10/10/16 at 21:00 Quetiapine Fumarate (Seroquel) 25 mg QHS PRN NGT anxiety Last administered on 21:08; Admin Dose 25 MG; Start 10/11/16 at 21:00 Sodium Biphosphate/ Sodium Phosphate (Fleet Enema) 133 ml DAILY PRN [place] CONSTIPATION; Start 10/11/16 at 08:30 Betamethasone/ Clotrimazole (Lotrisone Cr) 1 applic BID TOP Last administered on 10/13/16 08:46; Admin Dose 1 APPLIC; Start 10/11/16 at 14:00 Nystatin 1 applic 1 applic BID TOP Last administered on 10/13/16 08:47; Admin Dose 1 APPLIC; Start 10/11/16 at 15:00 Caspofungin/ Sodium Chloride (Cancidas/NS) 250 ml @ 250 mls/hr Q24H IVPB Last administered on 10/13/16 15:31; Admin Dose 250 MLS/HR; Start 10/12/16 at 15:00 Nystatin 5 ml 5 ml QID PO Last administered on 10/13/16 14:07; Admin Dose 5 ML ; Start 10/11/16 at 13:58 Midazolam HCl/ Sodium Chloride (Versed/NS) 100 ml @ 1 mls/hr TITRATE IV Last administered on 10/13/16 07:26; Admin Dose 10 MLS/HR; Start 10/11/16 at 15:00 Furosemide 20 mg 20 mg DAILY IV ; Start 10/14/16 at 09:00 Midazolam HCl (Versed) 50 ml @ 1 mls/hr TITRATE IV ; Start 10/14/16 at 00:00 RAUL GOMEZ NP Oct 13, 2016 16:16
[2016-10-13] MEDS: ATORVASTATIN 10 MG TAB PO SCH (20:53)
[2016-10-13] MEDS: MONTELUKAST 10 MG TAB PO SCH (20:55)
[2016-10-14] VITALS (35 sets, daily range): BP systolic 92–128; BP diastolic 54–84; PULSE 60–90; RESP 13–23
[2016-10-14] MEDS: ALBUTEROL 18 GM INHALER INH SCH ×4 (02:00→20:28)
[2016-10-14] MEDS: MIDAZOLAM (DRIP) 50 mg/50 mL 50 ML IV SCH ×4 (02:40→21:42)
[2016-10-14] MEDS: LORAZEPAM 2 MG INJ IV PRN ×2 (04:31→13:19)
[2016-10-14 04:41] LABS: ADD SCAN DIFF NO
[2016-10-14 04:46] LABS: ABNORMAL IP MESSAGE 1; BASOPHILS % 0.1 % (0.0-2.0); HEMATOCRIT 35.2 % (42.0-52.0); HEMOGLOBIN 11.3 g/dl (14.0-18.0); LYMPHOCYTES # 0.2 10^3/ul (0.8-2.9); LYMPHOCYTES % 1.4 % (15.0-51.0); MEAN CORPUSCULAR HGB CONC 32.1 g/dl (32.0-37.0); MEAN CORPUSCULAR VOLUME 96.4 fl (82.0-101.0); MEAN PLATELET VOLUME 10.5 fl (7.4-10.4); MONOCYTE # 0.3 10^3/ul (0.3-0.9); MONOCYTES % 2.2 % (0.0-11.0); NEUTROPHIL # 12.4 10^3/ul (1.6-7.5); NEUTROPHILS % 95.8 % (39.0-77.0); PLATELET COUNT 177 10^3/UL (140-415); RED BLOOD COUNT 3.65 10^6/ul (4.70-6.10); WHITE BLOOD COUNT 12.9 10^3/ul (4.8-10.8)
[2016-10-14 05:04] LABS: CREATININE 0.75 mg/dl (0.61-1.24)
[2016-10-14 05:05] LABS: CALCIUM 8.9 mg/dl (8.4-10.2); PHOSPHORUS 3.2 mg/dl (2.5-4.9)
[2016-10-14 05:06] LABS: MAGNESIUM 2.4 mg/dl (1.7-2.5)
[2016-10-14] MEDS: AL HYDROX/MG HYDROX/SIMETH 30 ML CUP PO SCH ×4 (06:12→22:40)
[2016-10-14] MEDS: FENTAnyl (DRIP) 1000 mcg/100mL 100 ML IV SCH ×2 (06:13→16:23)
[2016-10-14] MEDS: LANSOPRAZOLE 30 MG CAP NGT SCH ×2 (08:05→20:51)
[2016-10-14] MEDS: ASPIRIN 81 MG TAB PO SCH (08:05)
[2016-10-14] MEDS: METHYLPREDNISOLONE 125 MG INJ IV SCH ×2 (08:05→20:51)
[2016-10-14] MEDS: LORATADINE 10 MG TAB PO SCH (08:05)
[2016-10-14] MEDS: ARTIFICIAL TEARS 15 ML OPH BOTH EYES SCH ×3 (08:05→20:51)
[2016-10-14] MEDS: FUROSEMIDE 20 MG INJ IV SCH (08:05)
[2016-10-14] MEDS: NYSTATIN SUSP 5 ML CUP PO SCH ×4 (08:06→20:53)
[2016-10-14] MEDS: AMIODARONE 200 MG TAB PO SCH (08:06)
[2016-10-14] MEDS: ASCORBIC ACID 500 MG TAB PO SCH (08:06)
[2016-10-14] MEDS: METOPROLOL 25 MG TAB PO SCH ×2 (08:06→20:53)
[2016-10-14] MEDS: L ACIDOPHIL/B LACTIS/B LONGUM CAPSULE PO SCH ×2 (08:06→21:09)
[2016-10-14] MEDS: MULTIVITAMINS THERAPEUTIC TAB PO SCH (08:06)
[2016-10-14] MEDS: ENOXAPARIN 40 MG/0.4 ML SYG SC SCH (08:07)
[2016-10-14] MEDS: BETAMETHASONE/CLOTRIMAZOLE 15 GM CR TOP SCH ×2 (08:07→20:54)
[2016-10-14] MEDS: NYSTATIN 30 GM POWDER BTL TOP SCH ×2 (08:07→20:54)
[2016-10-14] MEDS: LEVOFLOXACIN 750MG/D5W (PMX) 150 ML IVPB SCH (08:34)
--- NOTE | 2016-10-14 08:35 | PN ---
DATE: 10/14/2016 CARDIOLOGY FOLLOWUP SUBJECTIVE: Discussed with the staff. The patient is intubated, on the vent. He has not tolerated weaning anymore. He remains in sinus rhythm. No chest pain or pressure reported. MEDICATIONS: Reviewed. PHYSICAL EXAMINATION: VITAL SIGNS: Temperature 98.6, heart rate of 76, blood pressure 128/79, respiration rate of 16, sat urating 93 to 94%. HEENT: Normocephalic, atraumatic. Status post intubation, on the vent. GENERAL: Obese gentleman, intubated, on the vent. HEENT: Eyes, pupils are equal and round. CARDIOVASCULAR: Regular rate and rhythm, a systolic murmur. PULMONARY: With mild rhonchi at the base. GASTROINTESTINAL: Obese, soft, nontender. EXTREMITIES: Positive for lower extremity edema. NEUROLOGIC: Awake, appears to be confused. PSYCHIATRIC: Appears to be agitated, but stable. LABORATORY: I's and O's showed 2720 in and 2180 out. WBC of 12.9, hemoglobin 11.3, platelets of 17 7. Sodium 137, potassium 4, BUN of 35, creatinine 0.75, glucose of 198, CO2 is 36. ASSESSMENT AND PLAN: 1. Hypoxemic hypercapnic respiratory failure, status post intubation. Awaiting a tracheostomy. 2. Congestive heart failure secondary to diastolic dysfunction, acute on chronic. On diuresis. 3. Electrolyte abnormality and hypernatremia. 4. Pneumonia. 5. Sepsis. 6. Encephalopathy. 7. Anemia. 8. History of paroxysmal atrial fibrillation. Currently in sinus rhythm. 9. History of psych disorder and bipolar disorder. 10. Hypertension, currently stable. No low blood pressure. RECOMMENDATIONS: Continue the vent support trach and PEG, most likely. Correct electrolytes as needed. Currently has remained stable, with normal potassium and magnesium. Will monitor on tel emetry closely. Diuresis as per renal. Currently on IV Lasix. Diamox has been given a few days an d currently has been completed. Continue with ICU care. Dictated By: BRENTON SAVAGE/ALYSON Conf#: [id number] DID#: [id number]
--- NOTE | 2016-10-14 10:28 | CONS ---
Date/Time of Note Date/Time of Note DATE: 10/14/16 TIME: 10:26 Consult Date/Type/Reason Admit Date/Time Sep 29, 2016 at 09:25 Type of Consultation: pulmonary ICU Subjective Patient awake alert oriented on mechanical ventilation Agrees to tracheostomy and PEG tube Currently he remains hemodynamically stable Objective Vital Signs Date Time Temp Pulse Resp B/P Pulse Ox O2 Delivery O2 Flow Rate FiO2 10/14/16 08:00 77 10/14/16 07:40 16 100 30 10/14/16 07:00 128/79 Mechanical Ventilator 10/14/16 04:00 98.6 Intake and Output 10/13/16 10/13/16 10/14/16 15:00 23:00 07:00 Intake Total 820 ml 1190 ml 650 ml Output Total 990 ml 590 ml 425 ml Balance -170 ml 600 ml 225 ml Exam PHYSICAL EXAMINATION GENERAL: Elderly gentleman, intubated on mechanical ventilation VITAL SIGNS: see below. HEENT: Pupils equal, round, and reactive to light. CARDIAC: S1, S2, tachycardia. CHEST: Diminished air entry bilaterally. ABDOMEN: Mildly distended. Bowel sounds present no guarding or rebound EXTREMITIES: No cyanosis, clubbing edema +1 NEUROLOGIC: No focal deficits. Results/Medications Result Diagram: 10/14/16 0340 10/14/16 0340 Results 24 hrs Laboratory Tests Test 10/14/16 03:40 White Blood Count 12.9 H Red Blood Count 3.65 L Hemoglobin 11.3 L Hematocrit 35.2 L Mean Corpuscular Volume 96.4 Mean Corpuscular Hemoglobin 31.0 Mean Corpuscular Hemoglobin Concent 32.1 Red Cell Distribution Width 13.0 Platelet Count 177 Mean Platelet Volume 10.5 H Neutrophils % 95.8 H Lymphocytes % 1.4 L Monocytes % 2.2 Eosinophils % 0.0 Basophils % 0.1 Nucleated Red Blood Cells % 0.0 Neutrophils # 12.4 H Lymphocytes # 0.2 L Monocytes # 0.3 Eosinophils # 0.0 Basophils # 0.0 Nucleated Red Blood Cells # 0.0 Sodium Level 137 Potassium Level 4.0 Chloride Level 92 L Carbon Dioxide Level 36 H Anion Gap 13 Blood Urea Nitrogen 35 H Creatinine 0.75 Glucose Level 198 Calcium Level 8.9 Phosphorus Level 3.2 Magnesium Level 2.4 Medications Current Medications Acetaminophen (Tylenol Tab) 650 mg Q4H PRN PO MILD PAIN LEVEL 1-3 Last administered on 10/10/16 01:39; Admin Dose 650 MG; Start 09/29/16 at 11:00 Acetaminophen (Tylenol Tab) 1,000 mg Q4H PRN PO PAIN LEVEL 4-6/10; Start at 11:00 Amiodarone HCl (Cordarone) 200 mg DAILY PO Last administered on 10/14/16 08:06 ; Admin Dose 200 MG; Start 09/30/16 at 09:00 Ascorbic Acid (Vitamin C) 500 mg DAILY PO Last administered on 10/14/16 08:06 ; Admin Dose 500 MG; Start 09/30/16 at 09:00 Aspirin (Aspirin) 81 mg DAILY PO Last administered on 10/14/16 08:05; Admin Dose 81 MG; Start 09/30/16 at 09:00 Atorvastatin Calcium (Lipitor) 5 mg QHS PO Last administered on 10/13/16 20:53 ; Admin Dose 5 MG; Start 09/29/16 at 21:00 Bisacodyl (Dulcolax Supp) 10 mg DAILY PRN [place] CONSTIPATION; Start 09/29/16 at 11 :00 Docusate Sodium (Colace) 200 mg QHS PRN PO CONSTIPATION; Start 09/29/16 at 11: 00 Loratadine (Claritin) 10 mg DAILY PO Last administered on 10/14/16 08:05; Admin Dose 10 MG; Start 09/30/16 at 09:00 Al Hydrox/Mg Hydrox/Simethicone (Mag-Al Plus) 30 ml Q6H PO Last administered on 10/14/16 06:12; Admin Dose 30 ML; Start 09/29/16 at 11:00 Magnesium Hydroxide (Milk Of Mag) 30 ml DAILY PRN PO CONSTIPATION Last administered on 10/11/16 20:35; Admin Dose 30 ML; Start 09/29/16 at 11:00 Metoprolol Tartrate (Lopressor) 25 mg BID PO Last administered on 10/14/16 08: 06; Admin Dose 25 MG; Start 09/29/16 at 21:00 Montelukast Sodium (Singulair) 10 mg QHS PO Last administered on 10/13/16 20: 55; Admin Dose 10 MG; Start 09/29/16 at 21:00 Multivitamins Therapeutic (Theragran) 1 tab DAILY PO Last administered on 08:06; Admin Dose 1 TAB; Start 09/30/16 at 09:00 Sodium Biphosphate/ Sodium Phosphate (Fleet Enema) 118 ml prn PRN [place] CONSTIPATION; Start 09/29/16 at 11:00 Eye Lubricant (Artificial Tears Oph) 1 drop TID BOTH EYES Last administered on 10/14/16 08:05; Admin Dose 1 DROP; Start 09/29/16 at 13:00 Lactobacillus Acidophilus 1 each 1 each BID PO Last administered on 10/14/16 08:06; Admin Dose 1 EACH; Start 09/29/16 at 21:00 Fentanyl (Sublimaze) 100 ml @ 2.5 mls/hr TITRATE IV Last administered on 06:13; Admin Dose 10 MLS/HR; Start 09/30/16 at 07:00 Enoxaparin Sodium 40 mg 40 mg DAILY SC Last administered on 10/14/16 08:07; Admin Dose 40 MG; Start 09/30/16 at 09:00 Levofloxacin/ Dextrose (Levaquin 750 Mg/ D5W 150 ml (Pmx)) 150 ml @ 100 mls/hr Q24H IVPB Last administered on 10/14/16 08:34; Admin Dose 100 MLS/HR; Start at 09:30 Lansoprazole (Prevacid) 30 mg BID NGT Last administered on 10/14/16 08:05; Admin Dose 30 MG; Start 09/30/16 at 21:00 Lorazepam (Ativan) 0.5 mg Q8H PRN IV anxiety Last administered on 10/14/16 04: 31; Admin Dose 0.5 MG; Start 10/09/16 at 08:00 Methylprednisolone Sodium Succinate (Solu-Medrol) 60 mg BID IV Last administered on 10/14/16 08:05; Admin Dose 60 MG; Start 10/10/16 at 21:00 Quetiapine Fumarate (Seroquel) 25 mg QHS PRN NGT anxiety Last administered on 21:08; Admin Dose 25 MG; Start 10/11/16 at 21:00 Sodium Biphosphate/ Sodium Phosphate (Fleet Enema) 133 ml DAILY PRN [place] CONSTIPATION; Start 10/11/16 at 08:30 Betamethasone/ Clotrimazole (Lotrisone Cr) 1 applic BID TOP Last administered on 10/14/16 08:07; Admin Dose 1 APPLIC; Start 10/11/16 at 14:00 Nystatin 1 applic 1 applic BID TOP Last administered on 10/14/16 08:07; Admin Dose 1 APPLIC; Start 10/11/16 at 15:00 Caspofungin/ Sodium Chloride (Cancidas/NS) 250 ml @ 250 mls/hr Q24H IVPB Last administered on 10/13/16 15:31; Admin Dose 250 MLS/HR; Start 10/12/16 at 15:00 Nystatin (Nystatin Susp) 5 ml QID PO Last administered on 10/14/16 08:06; Admin Dose 5 ML; Start 10/11/16 at 13:58 Furosemide 20 mg 20 mg DAILY IV Last administered on 10/14/16 08:05; Admin Dose 20 MG; Start 10/14/16 at 09:00 Midazolam HCl (Versed) 50 ml @ 1 mls/hr TITRATE IV Last administered on 08:50; Admin Dose 10 MLS/HR; Start 10/13/16 at 17:00 Assessment/Plan Chief Complaint/Hosp Course Assessment 1. Acute on chronic hypoxemic and hypercapnic respiratory failure, failed several weaning trials. Pending tracheostomy and G-tube 2. Probable obstructive sleep apnea 3. Systolic and diastolic dysfunction 4. Leukocytosis likely secondary to intravenous steroids. Improved. Plan 1. Continue mechanical ventilation. Pending tracheostomy 2. Continue bronchodilators 3. Continue broad-spectrum antibiotics 4. Continue steroids slow taper 5. DVT and GI prophylaxis 6. Pending G-tube Disposition Continue ICU care Discussed with primary care Critical care time 35 minutes Problems: [facility] BROWN MD, [facility] Oct 14, 2016 10:27
--- NOTE | 2016-10-14 10:44 | CONS ---
DATE OF ADMISSION: 09/29/2016 DATE OF CONSULTATION: REASON FOR CONSULTATION: Evaluation for tracheostomy. HISTORY OF PRESENT ILLNESS: This is a 56-year-old male with a history COPD, hypercapneic chronic re spiratory failure, hypertension, coronary artery disease, atrial fibrillation, GERD, admitted, was f ound to have respiratory failure and had to be intubated. Currently, unable to come off the ventila tor secondary to multiple problems. Currently on FIO2 of 30%. The patient is being treated for res piratory failure. PAST MEDICAL HISTORY: Significant for hypertension, hyperlipidemia, obesity. PAST SURGICAL HISTORY: None. ALLERGIES: NONE. SOCIAL HISTORY: No smoking, drinking or drug use. MEDICATIONS: List reviewed. REVIEW OF SYSTEMS: Unable to obtain. FAMILY HISTORY: No history of sudden cardiac . PHYSICAL EXAMINATION: VITAL SIGNS: Blood pressure is 128/79, pulse is 76, respirations 16, saturation is 93%. CARDIOVASCULAR: Regular rate and rhythm. LUNGS: Clear. ABDOMEN: Soft. EXTREMITIES: Warm. LABORATORY VALUES: Significant for a white count of 12.9, hemoglobin 11.3, platelet count 177. Nor mal coagulation factors and a creatinine of 0.75. IMPRESSION: Respiratory failure. RECOMMENDATIONS: We will proceed with a tracheostomy. Risks, benefits, complications, alternative therapies explained to the patient and his family. All questions answered. Dictated By: ALBA LOPEZ/ALYSON Conf#: [id number] DID#: [id number]
--- NOTE | 2016-10-14 12:44 | CONS ---
DATE OF ADMISSION: 09/29/2016 DATE OF CONSULTATION: Dear Dr. Bora Pereira: HISTORY OF PRESENT ILLNESS: Thank you for the referral of this 56-year-old man with a past medical history of COPD, respiratory failure, hypertension, coronary artery disease, atrial fibrillation, GE RD, bipolar disorder, admitted to the hospital for COPD exacerbation. Patient was transferred to [facility] ER from [facility] for shortness of breath on 09/29/2016, they found he had atelectasis. The pa tient was retaining CO2. It was 84, requiring BiPAP, steroid, bronchodilator and antibiotic. [facility] er, his condition deteriorated requiring intubation and he could not be weaned off the vent, so ANDREI blue was called in for a PEG and patient also will undergo tracheostomy tomorrow. PAST MEDICAL HISTORY: As described, atrial fibrillation, GERD, anxiety, bipolar disorder, severe CO PD and with CO2 retention. MEDICATIONS: Reviewed. PAST SURGICAL HISTORY: Reviewed. SOCIAL HISTORY: Previous history of smoking crack cocaine. FAMILY HISTORY: Nothing contributory. ALLERGIES: NO KNOWN DRUG ALLERGIES. REVIEW OF SYSTEMS: Unable to do it. The patient is on the vent. LABORATORY DATA: WBC is 12.9, hematocrit is 35, BUN is 35, creatinine is normal. INR is 1. MEDICATIONS: All his medications are reviewed. He is on: 1. Lasix. 2. Midazolam 3. Caspofungin. 4. Seroquel. 5. Lorazepam. 6. 7. Lovenox. The patient is not on any antibiotics. IMPRESSION: 1. Respiratory failure. 2. Bipolar disorder. 3. Atrial fibrillation. 4. Dysphagia. 5. Obesity. 6. Chronic obstructive pulmonary disease. 7. Candidiasis. PLAN: We will proceed with the placement of G-tube tomorrow. Continue present care. As per the st aff, the uncle has agreed and has consented for it. Dictated By: JULIA ACKERMAN/ALYSON Conf#: [id number] DID#: [id number]
--- NOTE | 2016-10-14 15:11 | CONS ---
Date/Time of Note Date/Time of Note DATE: 10/14/16 TIME: 15:06 Assessment/Plan Assessment/Plan Chief Complaint/Hosp Course ID PROGRESS NOTE TOTAL ABX DAY # 17 => Levaquin #7, Cancidas #4, oral nystatin s/p Zyvox/Merrem > DC'10/08/16 24H INTERVAL SUMMARY * Patient wakes up, sedation weaned, he is alert and oriented and understands his situation -- unable to wean from Vent. Patient is able to provide his own consent and agrees to TRACH/PEG placement with hopes of future plan to continue weaning process from the Vent. * 10/14/16 0340 10/14/16 0340 PHYSICAL EXAMINATION: GENERAL: VSS, NAD -> Morbid obese M, no fevers HEENT: ETT/OGT secure NECK: Supple, trach-> midline CHEST: Equal chest rise bilaterally, without dyspnea on observation / Vented HEART: Pulse RRR - NSR on tele ABDOMEN: Soft, obese EXTREMITIES: Warm w/generalized dependent edema SKIN: Warm, dry ID ASSESSMENT: 56 yo obese M w/PMHx Psych-Bipolar, substance abuse (crack) admitted with: 1. Acute hypoxic respiratory failure -> Failed BIPAP, intubated 2. Healthcare-associated pneumonia, (+)aspiration PNA risk factors * Oral candidiasis RESPIRATORY CULTURE Preliminary Organism 1 YEAST QUANTITY SCANT GROWTH 3. Congestive heart failure exacerbation. 4. Suspect obesity hypoventilation syndrome vs FAY 5. COPD 6. GERD 7. Candidiasis => Oral, opportunistic respiratory sputum pathogen, dermatomycosis back, groin INVASIVES: * ETT, OGT, FC, PICC->10/06/16 ABX ALLERGIES: [facility]: [facility] Yan[facility]: [phone]. * Patient is A/A/O and currently able to make his own HC decisions. CURRENT ABX: DAY # 17 => Levaquin #7, Cancidas #4, oral nystatin * ABX tapered day #10 =>s/p Zyvox/Merrem > DC'10/08/16 ID RECOMMENDATIONS: 1. Continue Levaquin + Started on short course Cancidas + Oral nystatin, Lotrisone topical for back, nystatin power for skin folds * (+Candidiasis oral, skin, ABD/groin folds -- DM on steroids -- New orders for anti-fungal management started yesterday * (+)Back rash -- probably r/t fungal + heat laying on cotton over synthetic sheets 2. Watch renal fx on Diuretics, WBC rising on IV steroids . . . Problems: Consultation Date/Type/Reason Admit Date/Time Sep 29, 2016 at 09:25 Type of Consultation: ID Exam/Review of Systems Vital Signs Vitals Vital Signs Date Time Temp Pulse Resp B/P Pulse Ox O2 Delivery O2 Flow Rate FiO2 10/14/16 13:00 66 19 110/73 94 Mechanical Ventilator 10/14/16 12:00 98.6 10/14/16 11:30 30 Intake and Output 10/13/16 10/13/16 10/14/16 15:00 23:00 07:00 Intake Total 820 ml 1190 ml 710 ml Output Total 990 ml 590 ml 490 ml Balance -170 ml 600 ml 220 ml Results Result Diagram: 10/14/16 0340 10/14/16 0340 Results 24 hrs Laboratory Tests Test 10/14/16 03:40 White Blood Count 12.9 H Red Blood Count 3.65 L Hemoglobin 11.3 L Hematocrit 35.2 L Mean Corpuscular Volume 96.4 Mean Corpuscular Hemoglobin 31.0 Mean Corpuscular Hemoglobin Concent 32.1 Red Cell Distribution Width 13.0 Platelet Count 177 Mean Platelet Volume 10.5 H Neutrophils % 95.8 H Lymphocytes % 1.4 L Monocytes % 2.2 Eosinophils % 0.0 Basophils % 0.1 Nucleated Red Blood Cells % 0.0 Neutrophils # 12.4 H Lymphocytes # 0.2 L Monocytes # 0.3 Eosinophils # 0.0 Basophils # 0.0 Nucleated Red Blood Cells # 0.0 Sodium Level 137 Potassium Level 4.0 Chloride Level 92 L Carbon Dioxide Level 36 H Anion Gap 13 Blood Urea Nitrogen 35 H Creatinine 0.75 Glucose Level 198 Calcium Level 8.9 Phosphorus Level 3.2 Magnesium Level 2.4 Medications Medications Current Medications Acetaminophen (Tylenol Tab) 650 mg Q4H PRN PO MILD PAIN LEVEL 1-3 Last administered on 10/10/16t 01:39; Admin Dose 650 MG; Start 09/29/16 at 11:00 Acetaminophen (Tylenol Tab) 1,000 mg Q4H PRN PO PAIN LEVEL 4-6/10; Start at 11:00 Amiodarone HCl (Cordarone) 200 mg DAILY PO Last administered on 10/14/16 08:06 ; Admin Dose 200 MG; Start 09/30/16 at 09:00 Ascorbic Acid (Vitamin C) 500 mg DAILY PO Last administered on 10/14/16 08:06 ; Admin Dose 500 MG; Start 09/30/16 at 09:00 Aspirin (Aspirin) 81 mg DAILY PO Last administered on 10/14/16 08:05; Admin Dose 81 MG; Start 09/30/16 at 09:00 Atorvastatin Calcium (Lipitor) 5 mg QHS PO Last administered on 10/13/16 20:53 ; Admin Dose 5 MG; Start 09/29/16 at 21:00 Bisacodyl (Dulcolax Supp) 10 mg DAILY PRN [place] CONSTIPATION; Start 09/29/16 at 11 :00 Docusate Sodium (Colace) 200 mg QHS PRN PO CONSTIPATION; Start 09/29/16 at 11: 00 Loratadine (Claritin) 10 mg DAILY PO Last administered on 10/14/16 08:05; Admin Dose 10 MG; Start 09/30/16 at 09:00 Al Hydrox/Mg Hydrox/Simethicone (Mag-Al Plus) 30 ml Q6H PO Last administered on 10/14/16 11:47; Admin Dose 30 ML; Start 09/29/16 at 11:00 Magnesium Hydroxide (Milk Of Mag) 30 ml DAILY PRN PO CONSTIPATION Last administered on 10/11/16 20:35; Admin Dose 30 ML; Start 09/29/16 at 11:00 Metoprolol Tartrate (Lopressor) 25 mg BID PO Last administered on 10/14/16 08: 06; Admin Dose 25 MG; Start 09/29/16 at 21:00 Montelukast Sodium (Singulair) 10 mg QHS PO Last administered on 10/13/16 20: 55; Admin Dose 10 MG; Start 09/29/16 at 21:00 Multivitamins Therapeutic (Theragran) 1 tab DAILY PO Last administered on 08:06; Admin Dose 1 TAB; Start 09/30/16 at 09:00 Sodium Biphosphate/ Sodium Phosphate (Fleet Enema) 118 ml prn PRN [place] CONSTIPATION; Start 09/29/16 at 11:00 Eye Lubricant (Artificial Tears Oph) 1 drop TID BOTH EYES Last administered on 10/14/16 13:18; Admin Dose 1 DROP; Start 09/29/16 at 13:00 Lactobacillus Acidophilus 1 each 1 each BID PO Last administered on 10/14/16 08:06; Admin Dose 1 EACH; Start 09/29/16 at 21:00 Fentanyl (Sublimaze) 100 ml @ 2.5 mls/hr TITRATE IV Last administered on 06:13; Admin Dose 10 MLS/HR; Start 09/30/16 at 07:00 Enoxaparin Sodium 40 mg 40 mg DAILY SC Last administered on 10/14/16 08:07; Admin Dose 40 MG; Start 09/30/16 at 09:00 Levofloxacin/ Dextrose (Levaquin 750 Mg/ D5W 150 ml (Pmx)) 150 ml @ 100 mls/hr Q24H IVPB Last administered on 10/14/16 08:34; Admin Dose 100 MLS/HR; Start at 09:30 Lansoprazole (Prevacid) 30 mg BID NGT Last administered on 10/14/16 08:05; Admin Dose 30 MG; Start 09/30/16 at 21:00 Lorazepam (Ativan) 0.5 mg Q8H PRN IV anxiety Last administered on 10/14/16 13: 19; Admin Dose 0.5 MG; Start 10/09/16 at 08:00 Methylprednisolone Sodium Succinate (Solu-Medrol) 60 mg BID IV Last administered on 10/14/16 08:05; Admin Dose 60 MG; Start 10/10/16 at 21:00 Quetiapine Fumarate (Seroquel) 25 mg QHS PRN NGT anxiety Last administered on 21:08; Admin Dose 25 MG; Start 10/11/16 at 21:00 Sodium Biphosphate/ Sodium Phosphate (Fleet Enema) 133 ml DAILY PRN [place] CONSTIPATION; Start 10/11/16 at 08:30 Betamethasone/ Clotrimazole (Lotrisone Cr) 1 applic BID TOP Last administered on 10/14/16 08:07; Admin Dose 1 APPLIC; Start 10/11/16 at 14:00 Nystatin 1 applic 1 applic BID TOP Last administered on 10/14/16 08:07; Admin Dose 1 APPLIC; Start 10/11/16 at 15:00 Caspofungin/ Sodium Chloride (Cancidas/NS) 250 ml @ 250 mls/hr Q24H IVPB Last administered on 10/13/16 15:31; Admin Dose 250 MLS/HR; Start 10/12/16 at 15:00 Nystatin (Nystatin Susp) 5 ml QID PO Last administered on 10/14/16 13:18; Admin Dose 5 ML; Start 10/11/16 at 13:58 Furosemide 20 mg 20 mg DAILY IV Last administered on 10/14/16 08:05; Admin Dose 20 MG; Start 10/14/16 at 09:00 Midazolam HCl (Versed) 50 ml @ 1 mls/hr TITRATE IV Last administered on 08:50; Admin Dose 10 MLS/HR; Start 10/13/16 at 17:00 RAUL GOMEZ [employer] ATT[employer] Oct 14, 2016 15:11
[2016-10-14] MEDS: CASPOFUNGIN 50 MG in SOD CHLORIDE 0.9% 250 ML IVPB SCH (15:24)
--- NOTE | 2016-10-14 17:32 | RADRPT ---
Vent Rate: 82 bpm RR Interval: 0 msec SC Interval: 152 msec QRS Duration: 96 msec QT Interval: 350 msec QTC Interval: 408 msec P-R-T Lannon: 76 - 51 - 76 degrees Normal sinus rhythm Septal infarct , age undetermined Abnormal ECG Electronically Signed By: Driss Babcock [id number]
[2016-10-14] MEDS: ATORVASTATIN 10 MG TAB PO SCH (20:52)
[2016-10-14] MEDS: MONTELUKAST 10 MG TAB PO SCH (20:53)
[2016-10-14] MEDS: QUETIAPINE 25 MG TAB NGT PRN (22:40)
[2016-10-15] VITALS (35 sets, daily range): BP systolic 94–138; BP diastolic 56–97; PULSE 61–95; RESP 8–23
[2016-10-15] MEDS: MIDAZOLAM (DRIP) 50 mg/50 mL 50 ML IV SCH ×5 (01:06→22:27)
[2016-10-15] MEDS: FENTAnyl (DRIP) 1000 mcg/100mL 100 ML IV SCH ×3 (01:27→21:30)
[2016-10-15] MEDS: ALBUTEROL 18 GM INHALER INH SCH ×4 (01:29→20:01)
[2016-10-15] MEDS: LORAZEPAM 2 MG INJ IV PRN ×2 (03:31→15:37)
[2016-10-15] MEDS: AL HYDROX/MG HYDROX/SIMETH 30 ML CUP PO SCH ×3 (05:28→17:00)
[2016-10-15 06:07] LABS: ADD SCAN DIFF NO
[2016-10-15 06:26] LABS: CALCIUM 8.7 mg/dl (8.4-10.2); CREATININE 0.62 mg/dl (0.61-1.24); POTASSIUM 4.8 mmol/L (3.5-5.1)
[2016-10-15 06:27] LABS: ABNORMAL IP MESSAGE 1; BASOPHILS % 0.1 % (0.0-2.0); HEMATOCRIT 35.1 % (42.0-52.0); HEMOGLOBIN 11.3 g/dl (14.0-18.0); LYMPHOCYTES # 0.1 10^3/ul (0.8-2.9); LYMPHOCYTES % 1.1 % (15.0-51.0); MEAN CORPUSCULAR HGB CONC 32.2 g/dl (32.0-37.0); MEAN CORPUSCULAR VOLUME 96.2 fl (82.0-101.0); MEAN PLATELET VOLUME 10.5 fl (7.4-10.4); MONOCYTE # 0.3 10^3/ul (0.3-0.9); MONOCYTES % 2.1 % (0.0-11.0); NEUTROPHIL # 12.7 10^3/ul (1.6-7.5); NEUTROPHILS % 96.2 % (39.0-77.0); PLATELET COUNT 154 10^3/UL (140-415); RED BLOOD COUNT 3.65 10^6/ul (4.70-6.10); WHITE BLOOD COUNT 13.2 10^3/ul (4.8-10.8)
[2016-10-15 06:33] LABS: INR 1.06; PARTIAL THROMBOPLASTIN TIME 24.2 Sec (25.0-35.0); PROTIME 13.8 Sec (12.2-14.2); PT RATIO 1.1
--- NOTE | 2016-10-15 08:02 | PN ---
DATE: 10/14/2016 SUBJECTIVE: The patient remains stable. No events overnight. The patient is scheduled for a trach and PEG today. No other events noted. OBJECTIVE: VITAL SIGNS: Blood pressure is 120/79, respirations 16, pulse 76, temperature 98.6. HEENT: Head is normocephalic. NECK: Supple. HEART: Regular rate. LUNGS: Show diminished breath sounds at the base. ABDOMEN: Soft, nontender to palpation. No rebound or guarding. EXTREMITIES: Negative for clubbing or cyanosis. No edema. DERMATOLOGIC: No rashes. MUSCULOSKELETAL: Have no joint effusion. NEUROLOGIC: No change in exam. MEDICATIONS: The patient's medications have been reviewed. LABORATORY DATA: Shows sodium 137, potassium 4.0, BUN 35, creatinine 0.75. White count 12.9, hemog lobin 11.3, hematocrit 35.2, platelet count 177. ASSESSMENT AND PLAN: 1. Ventilator-dependent respiratory failure. Etiology is secondary to chronic obstructive pulmonar y disease exacerbation, interstitial lung disease and CHF. The patient has failed multiple weaning trials. Pending trach placement today. 2. Acute diastolic heart failure. The patient is clinically improving. Continue the current diure tic regimen. 3. Hyponatremia. Mild. Improved. Continue to monitor. 4. Sepsis secondary pneumonia. The patient is completing an antibiotic course. Will continue the current treatment plan. Follow up with Infectious Disease. 5. Leukocytosis. Etiology is secondary to SIRS, sepsis. Improving. Continue to monitor. 6. Acute encephalopathy. Etiology is secondary to hypercapnia. The patient is . Continue to monitor. 7. , agitation and bipolar disorder. Continue Seroquel and Ativan. 8. Anemia. Continue to monitor H and H levels. 9. Coronary artery disease. Continue the current medical management. 10. Azotemia. Etiology is secondary to diuretic therapy and state. Continue to monitor. 11. Hypertension. Continue the current blood pressure regimen. Parameters are in place. 12. Dysphagia. Status post OG tube. Continue tube feedings. 13. Gastrointestinal and deep vein thrombosis prophylaxis. Continue PPI and Lovenox. Dictated By: RAMY PERRY/ALYSON Conf#: [id number] DID#: [id number]
--- NOTE | 2016-10-15 08:07 | PN ---
DATE: 10/15/2016 SUBJECTIVE: The patient is currently ventilator dependent, pending possible trach and PEG today. N o other events noted. No hemoptysis, hematemesis, or hematochezia. OBJECTIVE: VITAL SIGNS: Blood pressure 101/75, respiration 16, pulse 73, temperature 98.7. HEENT: Head is normocephalic. Pupils are reactive to light. NECK: Supple. HEART: Regular rate. LUNGS: Show diminished breath sounds at base. ABDOMEN: Soft, nontender to palpation without rebound or guarding. EXTREMITIES: Negative for clubbing, cyanosis. Trace edema. DERMATOLOGIC: No rashes. MUSCULOSKELETAL: No joint effusions. NEUROLOGIC: No change in exam. MEDICATIONS: The patient's medications have been reviewed. LABORATORY DATA: Shows sodium 135, potassium 4.8, BUN 33, creatinine 0.62. White count 13.3, hemog lobin 11.3, hematocrit 35.1, platelet count is 154. ASSESSMENT AND PLAN: 1. Ventilator dependent respiratory failure, etiology secondary to COPD exacerbation, chronic lung disease, CHF. The patient has failed multiple weaning trials pending a trach placement this morning . 2. Acute diastolic heart failure, clinically improving. Continue current diuretic regimen. 3. Mild hyponatremia, resolved. 4. Sepsis secondary to pneumonia. The patient has completed antibiotic course. 5. Leukocytosis secondary to sepsis, steroids, improving. Continue to monitor. 6. Acute encephalopathy secondary to hypercapnia. Continue to monitor. 7. History of bipolar disorder. Continue Seroquel and Ativan p.r.n. 8. Anemia. Continue to monitor hemoglobin and hematocrit levels. 9. Coronary artery disease. Continue current medical management. 10. Azotemia secondary to underlying diuretic therapy and hypercatabolic state. Continue to monito r. 11. Hypertension. Continue current blood pressure regimen. 12. Dysphagia. The patient is pending PEG placement. 13. Gastrointestinal and deep venous thrombosis prophylaxis. Continue proton pump inhibitor and Lo venox. Please note I spent over 30 minutes of critical care time with this patient. Dictated By: RAMY PERRY/ALYSON Conf#: [id number] DID#: [id number]
[2016-10-15] MEDS: ENOXAPARIN 40 MG/0.4 ML SYG SC SCH (09:00)
[2016-10-15] MEDS: ASCORBIC ACID 500 MG TAB PO SCH (09:00)
[2016-10-15] MEDS: LANSOPRAZOLE 30 MG CAP NGT SCH (09:00)
[2016-10-15] MEDS: LORATADINE 10 MG TAB PO SCH (09:00)
[2016-10-15] MEDS: L ACIDOPHIL/B LACTIS/B LONGUM CAPSULE PO SCH (09:00)
[2016-10-15] MEDS: MULTIVITAMINS THERAPEUTIC TAB PO SCH (09:00)
[2016-10-15] MEDS: ARTIFICIAL TEARS 15 ML OPH BOTH EYES SCH ×3 (09:13→20:41)
[2016-10-15] MEDS: METHYLPREDNISOLONE 125 MG INJ IV SCH ×2 (09:13→20:40)
[2016-10-15] MEDS: ASPIRIN 81 MG TAB PO SCH (09:14)
[2016-10-15] MEDS: AMIODARONE 200 MG TAB PO SCH (09:14)
[2016-10-15] MEDS: FUROSEMIDE 20 MG INJ IV SCH (09:14)
[2016-10-15] MEDS: METOPROLOL 25 MG TAB PO SCH ×2 (09:15→21:00)
[2016-10-15] MEDS: NYSTATIN SUSP 5 ML CUP PO SCH ×4 (09:15→20:40)
[2016-10-15] MEDS: BETAMETHASONE/CLOTRIMAZOLE 15 GM CR TOP SCH ×2 (09:22→21:00)
[2016-10-15] MEDS: LEVOFLOXACIN 750MG/D5W (PMX) 150 ML IVPB SCH (09:22)
[2016-10-15] MEDS: NYSTATIN 30 GM POWDER BTL TOP SCH ×2 (09:22→20:41)
--- NOTE | 2016-10-15 10:47 | CONS ---
Date/Time of Note Date/Time of Note DATE: 10/15/16 TIME: 10:46 Consult Date/Type/Reason Admit Date/Time Sep 29, 2016 at 09:25 Type of Consultation: pulmonary ICU Subjective Patient comfortable this morning awake alert orally intubated Objective Vital Signs Date Time Temp Pulse Resp B/P Pulse Ox O2 Delivery O2 Flow Rate FiO2 10/15/16 10:00 63 16 125/93 97 Mechanical Ventilator 10/15/16 08:00 98.6 10/15/16 05:14 30 Intake and Output 10/14/16 10/14/16 10/15/16 15:00 23:00 07:00 Intake Total 820 ml 900 ml 170 ml Output Total 1075 ml 495 ml 460 ml Balance -255 ml 405 ml -290 ml Exam PHYSICAL EXAMINATION GENERAL: Elderly gentleman, intubated on mechanical ventilation VITAL SIGNS: see below. HEENT: Pupils equal, round, and reactive to light. CARDIAC: S1, S2, tachycardia. CHEST: Diminished air entry bilaterally. ABDOMEN: Mildly distended. Bowel sounds present no guarding or rebound EXTREMITIES: No cyanosis, clubbing edema +1 NEUROLOGIC: No focal deficits. Results/Medications Result Diagram: 10/15/16 0545 10/15/16 0545 Results 24 hrs Laboratory Tests Test 10/15/16 05:45 White Blood Count 13.2 H Red Blood Count 3.65 L Hemoglobin 11.3 L Hematocrit 35.1 L Mean Corpuscular Volume 96.2 Mean Corpuscular Hemoglobin 31.0 Mean Corpuscular Hemoglobin Concent 32.2 Red Cell Distribution Width 13.0 Platelet Count 154 Mean Platelet Volume 10.5 H Neutrophils % 96.2 H Lymphocytes % 1.1 L Monocytes % 2.1 Eosinophils % 0.0 Basophils % 0.1 Nucleated Red Blood Cells % 0.0 Neutrophils # 12.7 H Lymphocytes # 0.1 L Monocytes # 0.3 Eosinophils # 0.0 Basophils # 0.0 Nucleated Red Blood Cells # 0.0 Prothrombin Time 13.8 Prothrombin Time Ratio 1.1 INR International Normalized Ratio 1.06 Activated Partial Thromboplast Time 24.2 L Sodium Level 135 Potassium Level 4.8 Chloride Level 94 L Carbon Dioxide Level 36 H Anion Gap 10 Blood Urea Nitrogen 33 H Creatinine 0.62 Glucose Level 163 Calcium Level 8.7 Magnesium Level 2.6 H Medications Current Medications Acetaminophen (Tylenol Tab) 650 mg Q4H PRN PO MILD PAIN LEVEL 1-3 Last administered on 10/10/16 01:39; Admin Dose 650 MG; Start 09/29/16 at 11:00 Acetaminophen (Tylenol Tab) 1,000 mg Q4H PRN PO PAIN LEVEL 4-6/10; Start at 11:00 Amiodarone HCl (Cordarone) 200 mg DAILY PO Last administered on 10/15/16 09:14 ; Admin Dose 200 MG; Start 09/30/16 at 09:00 Ascorbic Acid (Vitamin C) 500 mg DAILY PO Last administered on 10/14/16 08:06 ; Admin Dose 500 MG; Start 09/30/16 at 09:00 Aspirin (Aspirin) 81 mg DAILY PO Last administered on 10/15/16 09:14; Admin Dose 81 MG; Start 09/30/16 at 09:00 Atorvastatin Calcium (Lipitor) 5 mg QHS PO Last administered on 10/14/16 20:52 ; Admin Dose 5 MG; Start 09/29/16 at 21:00 Bisacodyl (Dulcolax Supp) 10 mg DAILY PRN [place] CONSTIPATION; Start 09/29/16 at 11 :00 Docusate Sodium (Colace) 200 mg QHS PRN PO CONSTIPATION; Start 09/29/16 at 11: 00 Loratadine (Claritin) 10 mg DAILY PO Last administered on 10/14/16 08:05; Admin Dose 10 MG; Start 09/30/16 at 09:00 Al Hydrox/Mg Hydrox/Simethicone (Mag-Al Plus) 30 ml Q6H PO Last administered on 10/15/16 05:28; Admin Dose 30 ML; Start 09/29/16 at 11:00 Magnesium Hydroxide (Milk Of Mag) 30 ml DAILY PRN PO CONSTIPATION Last administered on 10/11/16 20:35; Admin Dose 30 ML; Start 09/29/16 at 11:00 Metoprolol Tartrate (Lopressor) 25 mg BID PO Last administered on 10/15/16 09: 15; Admin Dose 25 MG; Start 09/29/16 at 21:00 Montelukast Sodium (Singulair) 10 mg QHS PO Last administered on 10/14/16 20: 53; Admin Dose 10 MG; Start 09/29/16 at 21:00 Multivitamins Therapeutic (Theragran) 1 tab DAILY PO Last administered on 08:06; Admin Dose 1 TAB; Start 09/30/16 at 09:00 Sodium Biphosphate/ Sodium Phosphate (Fleet Enema) 118 ml prn PRN [place] CONSTIPATION; Start 09/29/16 at 11:00 Eye Lubricant (Artificial Tears Oph) 1 drop TID BOTH EYES Last administered on 10/15/16 09:13; Admin Dose 1 DROP; Start 09/29/16 at 13:00 Lactobacillus Acidophilus 1 each 1 each BID PO Last administered on 10/14/16 21:09; Admin Dose 1 EACH; Start 09/29/16 at 21:00 Fentanyl (Sublimaze) 100 ml @ 2.5 mls/hr TITRATE IV Last administered on 01:27; Admin Dose 10 MLS/HR; Start 09/30/16 at 07:00 Enoxaparin Sodium 40 mg 40 mg DAILY SC Last administered on 10/14/16 08:07; Admin Dose 40 MG; Start 09/30/16 at 09:00 Levofloxacin/ Dextrose (Levaquin 750 Mg/ D5W 150 ml (Pmx)) 150 ml @ 100 mls/hr Q24H IVPB Last administered on 10/15/16 09:22; Admin Dose 100 MLS/HR; Start at 09:30 Lansoprazole (Prevacid) 30 mg BID NGT Last administered on 10/14/16 20:51; Admin Dose 30 MG; Start 09/30/16 at 21:00 Lorazepam (Ativan) 0.5 mg Q8H PRN IV anxiety Last administered on 10/15/16 03: 31; Admin Dose 0.5 MG; Start 10/09/16 at 08:00 Methylprednisolone Sodium Succinate (Solu-Medrol) 60 mg BID IV Last administered on 10/15/16 09:13; Admin Dose 60 MG; Start 10/10/16 at 21:00 Quetiapine Fumarate (Seroquel) 25 mg QHS PRN NGT anxiety Last administered on 22:40; Admin Dose 25 MG; Start 10/11/16 at 21:00 Sodium Biphosphate/ Sodium Phosphate (Fleet Enema) 133 ml DAILY PRN [place] CONSTIPATION; Start 10/11/16 at 08:30 Betamethasone/ Clotrimazole (Lotrisone Cr) 1 applic BID TOP Last administered on 10/15/16 09:22; Admin Dose 1 APPLIC; Start 10/11/16 at 14:00 Nystatin 1 applic 1 applic BID TOP Last administered on 10/15/16 09:22; Admin Dose 1 APPLIC; Start 10/11/16 at 15:00 Caspofungin/ Sodium Chloride (Cancidas/NS) 250 ml @ 250 mls/hr Q24H IVPB Last administered on 10/14/16 15:24; Admin Dose 250 MLS/HR; Start 10/12/16 at 15:00 Nystatin (Nystatin Susp) 5 ml QID PO Last administered on 10/15/16 09:15; Admin Dose 5 ML; Start 10/11/16 at 13:58 Furosemide 20 mg 20 mg DAILY IV Last administered on 10/15/16 09:14; Admin Dose 20 MG; Start 10/14/16 at 09:00 Midazolam HCl (Versed) 50 ml @ 1 mls/hr TITRATE IV Last administered on 06:18; Admin Dose 10 MLS/HR; Start 10/13/16 at 17:00 Assessment/Plan Chief Complaint/Hosp Course Assessment 1. Acute on chronic hypoxemic and hypercapnic respiratory failure, failed several weaning trials. Pending tracheostomy and G-tube, both scheduled for today 2. Probable obstructive sleep apnea 3. Systolic and diastolic dysfunction 4. Leukocytosis likely secondary to intravenous steroids. Improved. Plan 1. Continue mechanical ventilation 2. Continue bronchodilators 3. Continue broad-spectrum antibiotics 4. Continue steroids slow taper 5. DVT and GI prophylaxis 6. Pending G-tube Disposition Continue ICU care Discussed with primary care, Carlos evaluation Critical care time 35 minutes Problems: DEM[facility] BROWN [facility], [facility] Oct 15, 2016 10:47
--- NOTE | 2016-10-15 15:03 | CONS ---
Date/Time of Note Date/Time of Note DATE: 10/15/16 TIME: 15:01 Assessment/Plan Assessment/Plan Chief Complaint/Hosp Course ID PROGRESS NOTE TOTAL ABX DAY # 18 => Levaquin #8, Cancidas #5, oral nystatin s/p Zyvox/Merrem > DC'10/08/16 24H INTERVAL SUMMARY * A.A.O -> Plan is for Trach/PEG then TNS to [facility] for weaning -- Patient is stable, no fevers, WBC slightly up * Will continue ABX through the Trach process PHYSICAL EXAMINATION: GENERAL: VSS, NAD -> Morbid obese M, no fevers HEENT: ETT/OGT secure NECK: Supple, trach-> midline CHEST: Equal chest rise bilaterally, without dyspnea on observation / Vented HEART: Pulse RRR - NSR on tele ABDOMEN: Soft, obese EXTREMITIES: Warm w/generalized dependent edema SKIN: Warm, dry ID ASSESSMENT: 56 yo obese M w/PMHx Psych-Bipolar, substance abuse (crack) admitted with: 1. Acute hypoxic respiratory failure -> Failed BIPAP, intubated 2. Healthcare-associated pneumonia, (+)aspiration PNA risk factors * Oral candidiasis RESPIRATORY CULTURE Preliminary Organism 1 YEAST QUANTITY SCANT GROWTH 3. Congestive heart failure exacerbation. 4. Suspect obesity hypoventilation syndrome vs FAY 5. COPD 6. GERD 7. Candidiasis => Oral, opportunistic respiratory sputum pathogen, dermatomycosis back, groin INVASIVES: * ETT, OGT, FC, PICC->10/06/16 ABX ALLERGIES: [facility] [phone]. * Patient is A/A/O and currently able to make his own HC decisions. CURRENT ABX: # 18 => Levaquin #8, Cancidas #5, oral nystatin * ABX tapered day #10 =>s/p Zyvox/Merrem > DC'10/08/16 ID RECOMMENDATIONS: 1. Continue current ABX through the Trach, Peg process - . . . . Problems: Consultation Date/Type/Reason Admit Date/Time Sep 29, 2016 at 09:25 Type of Consultation: ID Exam/Review of Systems Vital Signs Vitals Vital Signs Date Time Temp Pulse Resp B/P Pulse Ox O2 Delivery O2 Flow Rate FiO2 10/15/16 13:00 64 16 100/75 95 Mechanical Ventilator 10/15/16 12:00 98.4 10/15/16 11:30 30 Intake and Output 10/14/16 10/14/16 10/15/16 15:00 23:00 07:00 Intake Total 820 ml 900 ml 170 ml Output Total 1075 ml 495 ml 460 ml Balance -255 ml 405 ml -290 ml Results Result Diagram: 10/15/16 0545 10/15/16 0545 Results 24 hrs Laboratory Tests Test 10/15/16 05:45 White Blood Count 13.2 H Red Blood Count 3.65 L Hemoglobin 11.3 L Hematocrit 35.1 L Mean Corpuscular Volume 96.2 Mean Corpuscular Hemoglobin 31.0 Mean Corpuscular Hemoglobin Concent 32.2 Red Cell Distribution Width 13.0 Platelet Count 154 Mean Platelet Volume 10.5 H Neutrophils % 96.2 H Lymphocytes % 1.1 L Monocytes % 2.1 Eosinophils % 0.0 Basophils % 0.1 Nucleated Red Blood Cells % 0.0 Neutrophils # 12.7 H Lymphocytes # 0.1 L Monocytes # 0.3 Eosinophils # 0.0 Basophils # 0.0 Nucleated Red Blood Cells # 0.0 Prothrombin Time 13.8 Prothrombin Time Ratio 1.1 INR International Normalized Ratio 1.06 Activated Partial Thromboplast Time 24.2 L Sodium Level 135 Potassium Level 4.8 Chloride Level 94 L Carbon Dioxide Level 36 H Anion Gap 10 Blood Urea Nitrogen 33 H Creatinine 0.62 Glucose Level 163 Calcium Level 8.7 Magnesium Level 2.6 H Medications Medications Current Medications Acetaminophen (Tylenol Tab) 650 mg Q4H PRN PO MILD PAIN LEVEL 1-3 Last administered on 10/10/16 01:39; Admin Dose 650 MG; Start 09/29/16 at 11:00 Acetaminophen (Tylenol Tab) 1,000 mg Q4H PRN PO PAIN LEVEL 4-6/10; Start at 11:00 Amiodarone HCl (Cordarone) 200 mg DAILY PO Last administered on 10/15/16 09:14 ; Admin Dose 200 MG; Start 09/30/16 at 09:00 Ascorbic Acid (Vitamin C) 500 mg DAILY PO Last administered on 10/14/16 08:06 ; Admin Dose 500 MG; Start 09/30/16 at 09:00 Aspirin (Aspirin) 81 mg DAILY PO Last administered on 10/15/16 09:14; Admin Dose 81 MG; Start 09/30/16 at 09:00 Atorvastatin Calcium (Lipitor) 5 mg QHS PO Last administered on 10/14/16 20:52 ; Admin Dose 5 MG; Start 09/29/16 at 21:00 Bisacodyl (Dulcolax Supp) 10 mg DAILY PRN IN CONSTIPATION; Start 09/29/16 at 11 :00 Docusate Sodium (Colace) 200 mg QHS PRN PO CONSTIPATION; Start 09/29/16 at 11: 00 Loratadine (Claritin) 10 mg DAILY PO Last administered on 10/14/16 08:05; Admin Dose 10 MG; Start 09/30/16 at 09:00 Al Hydrox/Mg Hydrox/Simethicone (Mag-Al Plus) 30 ml Q6H PO Last administered on 10/15/16 05:28; Admin Dose 30 ML; Start 09/29/16 at 11:00 Magnesium Hydroxide (Milk Of Mag) 30 ml DAILY PRN PO CONSTIPATION Last administered on 10/11/16 20:35; Admin Dose 30 ML; Start 09/29/16 at 11:00 Metoprolol Tartrate (Lopressor) 25 mg BID PO Last administered on 10/15/16 09: 15; Admin Dose 25 MG; Start 09/29/16 at 21:00 Montelukast Sodium (Singulair) 10 mg QHS PO Last administered on 10/14/16 20: 53; Admin Dose 10 MG; Start 09/29/16 at 21:00 Multivitamins Therapeutic (Theragran) 1 tab DAILY PO Last administered on 08:06; Admin Dose 1 TAB; Start 09/30/16 at 09:00 Sodium Biphosphate/ Sodium Phosphate (Fleet Enema) 118 ml prn PRN IN CONSTIPATION; Start 09/29/16 at 11:00 Eye Lubricant (Artificial Tears Oph) 1 drop TID BOTH EYES Last administered on 10/15/16 12:50; Admin Dose 1 DROP; Start 09/29/16 at 13:00 Lactobacillus Acidophilus 1 each 1 each BID PO Last administered on 10/14/16 21:09; Admin Dose 1 EACH; Start 09/29/16 at 21:00 Fentanyl (Sublimaze) 100 ml @ 2.5 mls/hr TITRATE IV Last administered on 11:27; Admin Dose 10 MLS/HR; Start 09/30/16 at 07:00 Enoxaparin Sodium 40 mg 40 mg DAILY SC Last administered on 10/14/16 08:07; Admin Dose 40 MG; Start 09/30/16 at 09:00 Levofloxacin/ Dextrose (Levaquin 750 Mg/ D5W 150 ml (Pmx)) 150 ml @ 100 mls/hr Q24H IVPB Last administered on 10/15/16 09:22; Admin Dose 100 MLS/HR; Start at 09:30 Lansoprazole (Prevacid) 30 mg BID NGT Last administered on 10/14/16 20:51; Admin Dose 30 MG; Start 09/30/16 at 21:00 Lorazepam (Ativan) 0.5 mg Q8H PRN IV anxiety Last administered on 10/15/16 03: 31; Admin Dose 0.5 MG; Start 10/09/16 at 08:00 Methylprednisolone Sodium Succinate (Solu-Medrol) 60 mg BID IV Last administered on 10/15/16 09:13; Admin Dose 60 MG; Start 10/10/16 at 21:00 Quetiapine Fumarate (Seroquel) 25 mg QHS PRN NGT anxiety Last administered on 22:40; Admin Dose 25 MG; Start 10/11/16 at 21:00 Sodium Biphosphate/ Sodium Phosphate (Fleet Enema) 133 ml DAILY PRN IN CONSTIPATION; Start 10/11/16 at 08:30 Betamethasone/ Clotrimazole (Lotrisone Cr) 1 applic BID TOP Last administered on 10/15/16 09:22; Admin Dose 1 APPLIC; Start 10/11/16 at 14:00 Nystatin 1 applic 1 applic BID TOP Last administered on 10/15/16 09:22; Admin Dose 1 APPLIC; Start 10/11/16 at 15:00 Caspofungin/ Sodium Chloride (Cancidas/NS) 250 ml @ 250 mls/hr Q24H IVPB Last administered on 10/14/16 15:24; Admin Dose 250 MLS/HR; Start 10/12/16 at 15:00 Nystatin (Nystatin Susp) 5 ml QID PO Last administered on 10/15/16 12:50; Admin Dose 5 ML; Start 10/11/16 at 13:58 Furosemide 20 mg 20 mg DAILY IV Last administered on 10/15/16 09:14; Admin Dose 20 MG; Start 10/14/16 at 09:00 Midazolam HCl (Versed) 50 ml @ 1 mls/hr TITRATE IV Last administered on 13:03; Admin Dose 10 MLS/HR; Start 10/13/16 at 17:00 RAUL GOMEZ NP Oct 15, 2016 15:03
[2016-10-15] MEDS: CASPOFUNGIN 50 MG in SOD CHLORIDE 0.9% 250 ML IVPB SCH (15:10)
--- NOTE | 2016-10-15 15:52 | PN ---
DATE: 10/15/2016 CARDIOLOGY FOLLOWUP SUBJECTIVE: Discussed with the staff, discussed with Dr. Fragoso. The patient remains in sinus r hythm, no evidence of atrial fibrillation. Sedated on the vent unable to be weaned off. Appears to be agitated. MEDICATIONS: Reviewed. PHYSICAL EXAMINATION: VITAL SIGNS: Temperature 98.4, heart rate of 64, blood pressure 100/65, respiration 16, saturating 95%. HEENT: Normocephalic, atraumatic. Obese gentleman. Pupils are equal. Status post intubation on t he vent. CARDIOVASCULAR: Irregularly irregular, systolic murmur. PULMONARY: Anteriorly with no wheezes heard. Mild rhonchi at the base. GASTROINTESTINAL: Obese, soft, nontender. EXTREMITIES: Positive edema. NEUROLOGIC: Awake but agitated. PSYCHIATRIC: Agitated. LABORATORY: WBC of 13.2, hemoglobin 8.3, platelets of 154. Sodium 135, potassium 4.8, BUN of 33, c reatinine 0.62, glucose 163, magnesium is 2.6. ASSESSMENT AND PLAN: 1. Hypoxemic hypercapnic respiratory failure, status post intubation on the vent, unable to be wean ed off. 2. History of paroxysmal atrial fibrillation, currently in sinus rhythm. 3. Congestive heart failure with diastolic dysfunction and fluid overload on diuresis. 4. Pneumonia and sepsis. 5. Encephalopathy 6. History of bipolar disorder 7. Anemia. 8. History of hypertension, currently hypotensive. 9. Dysphagia, awaiting PEG placement. RECOMMENDATIONS: Tracheostomy with PEG placement are planned for today. We will continue with the ICU care. Meanwhile, we will continue to monitor closely. Electrolytes will be corrected as needed. Dictated By: BRENTON SAVAGE/ALYSON Conf#: [id number] DID#: [id number] CC: RAMY DOMINGUEZ DO;*EndCC*
[2016-10-15] MEDS ORDERED: LIDOCAINE 0.5% (MDV) 50 ML INJ INJ ONE (16:30)
[2016-10-15] MEDS ORDERED: LIDOCAINE 0.5%/EPI (MDV) 50 ML INJ ONE (16:57)
[2016-10-15] MEDS ORDERED: LIDOCAINE 100 MG SYRINGE ONE (16:58)
[2016-10-15] MEDS ORDERED: MIDAZOLAM 1 MG/ML 2 ML INJ ONE (16:58)
[2016-10-15] MEDS ORDERED: PROPOFOL 20 ML ONE (16:58)
[2016-10-16] VITALS (35 sets, daily range): BP systolic 104–147; BP diastolic 66–102; PULSE 67–105; RESP 15–22
[2016-10-16] MEDS: MONTELUKAST 10 MG TAB PO SCH ×2 (00:38→20:29)
[2016-10-16] MEDS: AL HYDROX/MG HYDROX/SIMETH 30 ML CUP PO SCH ×5 (00:38→21:52)
[2016-10-16] MEDS: ATORVASTATIN 10 MG TAB PO SCH ×2 (00:38→20:30)
[2016-10-16] MEDS: L ACIDOPHIL/B LACTIS/B LONGUM CAPSULE PO SCH ×3 (00:38→20:31)
[2016-10-16] MEDS: LANSOPRAZOLE 30 MG CAP NGT SCH ×3 (00:38→20:29)
[2016-10-16] MEDS: ALBUTEROL 18 GM INHALER INH SCH ×4 (01:38→19:16)
[2016-10-16] MEDS: MIDAZOLAM (DRIP) 50 mg/50 mL 50 ML IV SCH (04:02)
[2016-10-16 04:58] LABS: ADD SCAN DIFF NO
[2016-10-16 05:00] LABS: ABNORMAL IP MESSAGE 1; HEMATOCRIT 32.8 % (42.0-52.0); HEMOGLOBIN 10.6 g/dl (14.0-18.0); MEAN CORPUSCULAR HEMOGLOBIN 30.7 pg (29.0-33.0); MEAN CORPUSCULAR HGB CONC 32.3 g/dl (32.0-37.0); MEAN CORPUSCULAR VOLUME 95.1 fl (82.0-101.0); MEAN PLATELET VOLUME 10.5 fl (7.4-10.4); PLATELET COUNT 140 10^3/UL (140-415); RED BLOOD COUNT 3.45 10^6/ul (4.70-6.10); RED CELL DISTRIBUTION WIDTH 13.2 % (11.5-14.5); WHITE BLOOD COUNT 15.3 10^3/ul (4.8-10.8)
--- NOTE | 2016-10-16 05:29 | OPR ---
DATE OF OPERATION: PREOPERATIVE DIAGNOSIS: Respiratory failure. POSTOPERATIVE DIAGNOSIS: Respiratory failure. OPERATION PERFORMED: Tracheostomy, 8-Maltese. SURGEON: Alba Fragoso MD ANESTHESIA: Local. INFORMED CONSENT: The risks, benefits, complications, and alternatives were explained to the patient and consent was obtained. OPERATIVE TECHNIQUE: The patient was placed in the supine position, prepped and draped in the usual sterile fashion. One percent lidocaine was used throughout the operation for local anesthesia. I made a 1 cm incision in horizontal fashion 1 cm superior to the sternal notch. Incision was taken d own to the subcutaneous tissue which was then opened using Metzenbaum scissors. Access was gained i nto the trachea. Guidewire was advanced through without any difficulty. Subcutaneous tissues was d ilated using progressively larger dilators. The endotracheal tube was removed, and an 8 cuffed trach eostomy tube was advanced into the trachea, secured to skin using 2-0 silk sutures and a trach tie. The patient tolerated the procedure well. Dictated By: ALBA LOPEZ/ALYSON Conf#: [id number] DID#: [id number]
[2016-10-16] MEDS: FENTAnyl (DRIP) 1000 mcg/100mL 100 ML IV SCH (06:39)
--- NOTE | 2016-10-16 08:54 | CONS ---
Date/Time of Note Date/Time of Note DATE: 10/16/16 TIME: 08:53 Consult Date/Type/Reason Admit Date/Time Sep 29, 2016 at 09:25 Initial Consult Date Type of Consultation: nephrology Subjective pt. seen and examined in icu. vent setting noted. s/p trach. no distress. pe: HEENT: Head is normocephalic. Pupils are reactive to light. NECK: Supple. HEART: Regular rate. LUNGS: Show diminished breath sounds at base. ABDOMEN: Soft, nontender to palpation without rebound or guarding. EXTREMITIES: Negative for clubbing, cyanosis. Trace edema. DERMATOLOGIC: No rashes. MUSCULOSKELETAL: No joint effusions. NEUROLOGIC: No change in exam. Objective Vital Signs Date Time Temp Pulse Resp B/P Pulse Ox O2 Delivery O2 Flow Rate FiO2 10/16/16 08:00 98.6 91 15 105/82 96 Mechanical Ventilator 10/16/16 06:15 30 Intake and Output 10/15/16 10/15/16 10/16/16 15:00 23:00 07:00 Intake Total 330 ml 510 ml 535 ml Output Total 940 ml 480 ml 451 ml Balance -610 ml 30 ml 84 ml Results/Medications Result Diagram: 10/16/16 0430 10/15/16 0545 Results 24 hrs Laboratory Tests Test 10/16/16 04:30 White Blood Count 15.3 H Red Blood Count 3.45 L Hemoglobin 10.6 L Hematocrit 32.8 L Mean Corpuscular Volume 95.1 Mean Corpuscular Hemoglobin 30.7 Mean Corpuscular Hemoglobin Concent 32.3 Red Cell Distribution Width 13.2 Platelet Count 140 Mean Platelet Volume 10.5 H Medications Current Medications Acetaminophen (Tylenol Tab) 650 mg Q4H PRN PO MILD PAIN LEVEL 1-3 Last administered on 10/10/16 01:39; Admin Dose 650 MG; Start 09/29/16 at 11:00 Acetaminophen (Tylenol Tab) 1,000 mg Q4H PRN PO PAIN LEVEL 4-6/10; Start at 11:00 Amiodarone HCl (Cordarone) 200 mg DAILY PO Last administered on 10/15/16 09:14 ; Admin Dose 200 MG; Start 09/30/16 at 09:00 Ascorbic Acid (Vitamin C) 500 mg DAILY PO Last administered on 10/14/16 08:06 ; Admin Dose 500 MG; Start 09/30/16 at 09:00 Aspirin (Aspirin) 81 mg DAILY PO Last administered on 10/15/16 09:14; Admin Dose 81 MG; Start 09/30/16 at 09:00 Atorvastatin Calcium (Lipitor) 5 mg QHS PO Last administered on 10/16/16 00:38 ; Admin Dose 5 MG; Start 09/29/16 at 21:00 Bisacodyl (Dulcolax Supp) 10 mg DAILY PRN [place] CONSTIPATION; Start 09/29/16 at 11 :00 Docusate Sodium (Colace) 200 mg QHS PRN PO CONSTIPATION; Start 09/29/16 at 11: 00 Loratadine (Claritin) 10 mg DAILY PO Last administered on 10/14/16 08:05; Admin Dose 10 MG; Start 09/30/16 at 09:00 Al Hydrox/Mg Hydrox/Simethicone (Mag-Al Plus) 30 ml Q6H PO Last administered on 10/16/16 00:38; Admin Dose 30 ML; Start 09/29/16 at 11:00 Magnesium Hydroxide (Milk Of Mag) 30 ml DAILY PRN PO CONSTIPATION Last administered on 10/11/16 20:35; Admin Dose 30 ML; Start 09/29/16 at 11:00 Metoprolol Tartrate (Lopressor) 25 mg BID PO Last administered on 10/15/16 09: 15; Admin Dose 25 MG; Start 09/29/16 at 21:00 Montelukast Sodium (Singulair) 10 mg QHS PO Last administered on 10/16/16 00: 38; Admin Dose 10 MG; Start 09/29/16 at 21:00 Multivitamins Therapeutic (Theragran) 1 tab DAILY PO Last administered on 08:06; Admin Dose 1 TAB; Start 09/30/16 at 09:00 Sodium Biphosphate/ Sodium Phosphate (Fleet Enema) 118 ml prn PRN [place] CONSTIPATION; Start 09/29/16 at 11:00 Eye Lubricant (Artificial Tears Oph) 1 drop TID BOTH EYES Last administered on 10/15/16 20:41; Admin Dose 1 DROP; Start 09/29/16 at 13:00 Lactobacillus Acidophilus 1 each 1 each BID PO Last administered on 10/16/16 00:38; Admin Dose 1 EACH; Start 09/29/16 at 21:00 Fentanyl (Sublimaze) 100 ml @ 2.5 mls/hr TITRATE IV Last administered on 06:39; Admin Dose 10 MLS/HR; Start 09/30/16 at 07:00 Enoxaparin Sodium 40 mg 40 mg DAILY SC Last administered on 10/14/16 08:07; Admin Dose 40 MG; Start 09/30/16 at 09:00 Levofloxacin/ Dextrose (Levaquin 750 Mg/ D5W 150 ml (Pmx)) 150 ml @ 100 mls/hr Q24H IVPB Last administered on 10/15/16 09:22; Admin Dose 100 MLS/HR; Start at 09:30 Lansoprazole (Prevacid) 30 mg BID NGT Last administered on 10/16/16 00:38; Admin Dose 30 MG; Start 09/30/16 at 21:00 Lorazepam (Ativan) 0.5 mg Q8H PRN IV anxiety Last administered on 10/15/16 15: 37; Admin Dose 0.5 MG; Start 10/09/16 at 08:00 Methylprednisolone Sodium Succinate (Solu-Medrol) 60 mg BID IV Last administered on 10/15/16 20:40; Admin Dose 60 MG; Start 10/10/16 at 21:00 Quetiapine Fumarate (Seroquel) 25 mg QHS PRN NGT anxiety Last administered on 22:40; Admin Dose 25 MG; Start 10/11/16 at 21:00 Sodium Biphosphate/ Sodium Phosphate (Fleet Enema) 133 ml DAILY PRN [place] CONSTIPATION; Start 10/11/16 at 08:30 Betamethasone/ Clotrimazole (Lotrisone Cr) 1 applic BID TOP Last administered on 10/15/16 21:00; Admin Dose 1 APPLIC; Start 10/11/16 at 14:00 Nystatin 1 applic 1 applic BID TOP Last administered on 10/15/16 20:41; Admin Dose 1 APPLIC; Start 10/11/16 at 15:00 Caspofungin/ Sodium Chloride (Cancidas/NS) 250 ml @ 250 mls/hr Q24H IVPB Last administered on 10/15/16 15:10; Admin Dose 250 MLS/HR; Start 10/12/16 at 15:00 Nystatin (Nystatin Susp) 5 ml QID PO Last administered on 10/15/16 20:40; Admin Dose 5 ML; Start 10/11/16 at 13:58 Furosemide 20 mg 20 mg DAILY IV Last administered on 10/15/16 09:14; Admin Dose 20 MG; Start 10/14/16 at 09:00 Midazolam HCl (Versed) 50 ml @ 1 mls/hr TITRATE IV Last administered on 04:02; Admin Dose 10 MLS/HR; Start 10/13/16 at 17:00 Assessment/Plan Chief Complaint/Hosp Course 1. Ventilator dependent respiratory failure, etiology secondary to COPD exacerbation, chronic lung disease, CHF. The patient has failed multiple weaning trials pending a trach placement this morning. 2. Acute diastolic heart failure, clinically improving. Continue current diuretic regimen. 3. Mild hyponatremia, resolved. 4. Sepsis secondary to pneumonia. The patient has completed antibiotic course. 5. Leukocytosis secondary to sepsis, steroids, slightly worse, Continue to monitor. 6. Acute encephalopathy secondary to hypercapnia. Continue to monitor. 7. History of bipolar disorder. Continue Seroquel and Ativan p.r.n. 8. Anemia. Continue to monitor hemoglobin and hematocrit levels. 9. Coronary artery disease. Continue current medical management. 10. Azotemia secondary to underlying diuretic therapy and hypercatabolic state. Continue to monitor. 11. Hypertension. Continue current blood pressure regimen. 12. Dysphagia. The patient is pending PEG placement. 13. Gastrointestinal and deep venous thrombosis prophylaxis. Continue proton pump inhibitor and Lovenox. Please note I spent over 30 minutes of critical care time with this patient. Problems: HAZEL SOTOMAYOR MD Oct 16, 2016 08:54
[2016-10-16] MEDS: ASPIRIN 81 MG TAB PO SCH (08:59)
[2016-10-16] MEDS: NYSTATIN SUSP 5 ML CUP PO SCH ×4 (08:59→20:29)
[2016-10-16] MEDS: FUROSEMIDE 20 MG INJ IV SCH (08:59)
[2016-10-16] MEDS: MULTIVITAMINS THERAPEUTIC TAB PO SCH (09:00)
[2016-10-16] MEDS: ENOXAPARIN 40 MG/0.4 ML SYG SC SCH (09:00)
[2016-10-16] MEDS: METOPROLOL 25 MG TAB PO SCH ×2 (09:00→20:29)
[2016-10-16] MEDS: AMIODARONE 200 MG TAB PO SCH (09:00)
[2016-10-16] MEDS: ASCORBIC ACID 500 MG TAB PO SCH (09:01)
[2016-10-16] MEDS: METHYLPREDNISOLONE 125 MG INJ IV SCH ×2 (09:01→20:30)
[2016-10-16] MEDS: ARTIFICIAL TEARS 15 ML OPH BOTH EYES SCH ×3 (09:02→20:30)
[2016-10-16] MEDS: BETAMETHASONE/CLOTRIMAZOLE 15 GM CR TOP SCH ×2 (09:02→20:32)
[2016-10-16] MEDS: NYSTATIN 30 GM POWDER BTL TOP SCH ×2 (09:02→20:31)
[2016-10-16] MEDS: LEVOFLOXACIN 750MG/D5W (PMX) 150 ML IVPB SCH (09:02)
[2016-10-16] MEDS: LORATADINE 10 MG TAB PO SCH (09:04)
[2016-10-16 09:22] LABS: POTASSIUM 4.3 mmol/L (3.5-5.1)
[2016-10-16 09:24] LABS: CREATININE 0.61 mg/dl (0.61-1.24)
[2016-10-16 09:25] LABS: CALCIUM 8.7 mg/dl (8.4-10.2); MAGNESIUM 2.7 mg/dl (1.7-2.5); PHOSPHORUS 2.9 mg/dl (2.5-4.9)
--- NOTE | 2016-10-16 09:41 | CONS ---
Date/Time of Note Date/Time of Note DATE: 10/16/16 TIME: 09:39 Assessment/Plan Assessment/Plan Additional Assessment/Plan Ventilator settings; AC of 16, tidal volume 500, PEEP of 5, 30% FiO2. Patient currently on fentanyl 50 mics per hour, Versed 5 mg/h. Assessment recommendations; 1. Patient admitted for hypercapnic respiratory failure with failure to be extubated requiring tracheostomy. 2. History of hypertension and COPD. 3. History of cardiac arrhythmia. Continue current treatment. Discontinue fentanyl drip and switch the patient to fentanyl patch, also been off Versed drip and switch the patient to Ativan 2 mg via G-tube every 6 hours scheduled with subsequent tapering down to as needed basis. Patient once off continuous IV sedation can be transferred to telemetry unit. Consultation Date/Type/Reason Admit Date/Time Sep 29, 2016 at 09:25 Type of Consultation: Pulmonary/critical care 24 HR Interval Summary Free Text/Dictation Patient condition is stable. Underwent tracheostomy yesterday. Remains awake and alert. Still requiring fentanyl and Versed drips for sedation. General exam; middle-aged male, morbidly obese, on ventilator via tracheostomy, awake and alert. Currently in no distress. Exam/Review of Systems Vital Signs Vitals Vital Signs Date Time Temp Pulse Resp B/P Pulse Ox O2 Delivery O2 Flow Rate FiO2 10/16/16 08:00 98.6 91 15 105/82 96 Mechanical Ventilator 10/16/16 06:15 30 Intake and Output 10/15/16 10/15/16 10/16/16 15:00 23:00 07:00 Intake Total 330 ml 510 ml 535 ml Output Total 940 ml 480 ml 451 ml Balance -610 ml 30 ml 84 ml Exam HEENT exam is; supple neck, no JVD. No lymphadenopathy. Midline trachea. No thyromegaly. Tracheostomy placed with clean insertion site. Patient has fair dentition. Pupils are midsize reactive to light. Chest examination; diminished but clear vessel. S1-S2 audible, no murmurs. Regular rhythm. Abdomen examination; soft, no organomegaly. Bowel sounds audible. G-tube in place. Extremity examination; no peripheral edema. Pulses 1+ bilaterally. 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 Results Result Diagram: 10/16/16 0430 10/16/16 0430 Results 24 hrs Laboratory Tests Test 10/16/16 04:30 White Blood Count 15.3 H Red Blood Count 3.45 L Hemoglobin 10.6 L Hematocrit 32.8 L Mean Corpuscular Volume 95.1 Mean Corpuscular Hemoglobin 30.7 Mean Corpuscular Hemoglobin Concent 32.3 Red Cell Distribution Width 13.2 Platelet Count 140 Mean Platelet Volume 10.5 H Sodium Level 136 Potassium Level 4.3 Chloride Level 92 L Carbon Dioxide Level 37 H Anion Gap 11 Blood Urea Nitrogen 35 H Creatinine 0.61 Glucose Level 188 Calcium Level 8.7 Phosphorus Level 2.9 Magnesium Level 2.7 H Medications Medications Current Medications Acetaminophen (Tylenol Tab) 650 mg Q4H PRN PO MILD PAIN LEVEL 1-3 Last administered on 10/10/16 01:39; Admin Dose 650 MG; Start 09/29/16 at 11:00 Acetaminophen (Tylenol Tab) 1,000 mg Q4H PRN PO PAIN LEVEL 4-6/10; Start at 11:00 Amiodarone HCl (Cordarone) 200 mg DAILY PO Last administered on 10/16/16 09:00 ; Admin Dose 200 MG; Start 09/30/16 at 09:00 Ascorbic Acid (Vitamin C) 500 mg DAILY PO Last administered on 10/16/16 09:01 ; Admin Dose 500 MG; Start 09/30/16 at 09:00 Aspirin (Aspirin) 81 mg DAILY PO Last administered on 10/16/16 08:59; Admin Dose 81 MG; Start 09/30/16 at 09:00 Atorvastatin Calcium (Lipitor) 5 mg QHS PO Last administered on 10/16/16 00:38 ; Admin Dose 5 MG; Start 09/29/16 at 21:00 Bisacodyl (Dulcolax Supp) 10 mg DAILY PRN [place] CONSTIPATION; Start 09/29/16 at 11 :00 Docusate Sodium (Colace) 200 mg QHS PRN PO CONSTIPATION; Start 09/29/16 at 11: 00 Loratadine (Claritin) 10 mg DAILY PO Last administered on 10/16/16 09:04; Admin Dose 10 MG; Start 09/30/16 at 09:00 Al Hydrox/Mg Hydrox/Simethicone (Mag-Al Plus) 30 ml Q6H PO Last administered on 10/16/16 00:38; Admin Dose 30 ML; Start 09/29/16 at 11:00 Magnesium Hydroxide (Milk Of Mag) 30 ml DAILY PRN PO CONSTIPATION Last administered on 10/11/16 20:35; Admin Dose 30 ML; Start 09/29/16 at 11:00 Metoprolol Tartrate (Lopressor) 25 mg BID PO Last administered on 10/16/16 09: 00; Admin Dose 25 MG; Start 09/29/16 at 21:00 Montelukast Sodium (Singulair) 10 mg QHS PO Last administered on 10/16/16 00: 38; Admin Dose 10 MG; Start 09/29/16 at 21:00 Multivitamins Therapeutic (Theragran) 1 tab DAILY PO Last administered on 09:00; Admin Dose 1 TAB; Start 09/30/16 at 09:00 Sodium Biphosphate/ Sodium Phosphate (Fleet Enema) 118 ml prn PRN [place] CONSTIPATION; Start 09/29/16 at 11:00 Eye Lubricant (Artificial Tears Oph) 1 drop TID BOTH EYES Last administered on 10/16/16 09:02; Admin Dose 1 DROP; Start 09/29/16 at 13:00 Lactobacillus Acidophilus 1 each 1 each BID PO Last administered on 10/16/16 08:59; Admin Dose 1 EACH; Start 09/29/16 at 21:00 Fentanyl (Sublimaze) 100 ml @ 2.5 mls/hr TITRATE IV Last administered on 06:39; Admin Dose 10 MLS/HR; Start 09/30/16 at 07:00 Enoxaparin Sodium 40 mg 40 mg DAILY SC Last administered on 10/14/16 08:07; Admin Dose 40 MG; Start 09/30/16 at 09:00 Levofloxacin/ Dextrose (Levaquin 750 Mg/ D5W 150 ml (Pmx)) 150 ml @ 100 mls/hr Q24H IVPB Last administered on 10/16/16 09:02; Admin Dose 100 MLS/HR; Start at 09:30 Lansoprazole (Prevacid) 30 mg BID NGT Last administered on 10/16/16 08:59; Admin Dose 30 MG; Start 09/30/16 at 21:00 Lorazepam (Ativan) 0.5 mg Q8H PRN IV anxiety Last administered on 10/15/16 15: 37; Admin Dose 0.5 MG; Start 10/09/16 at 08:00 Methylprednisolone Sodium Succinate (Solu-Medrol) 60 mg BID IV Last administered on 10/16/16 09:01; Admin Dose 60 MG; Start 10/10/16 at 21:00 Quetiapine Fumarate (Seroquel) 25 mg QHS PRN NGT anxiety Last administered on 22:40; Admin Dose 25 MG; Start 10/11/16 at 21:00 Sodium Biphosphate/ Sodium Phosphate (Fleet Enema) 133 ml DAILY PRN [place] CONSTIPATION; Start 10/11/16 at 08:30 Betamethasone/ Clotrimazole (Lotrisone Cr) 1 applic BID TOP Last administered on 10/16/16 09:02; Admin Dose 1 APPLIC; Start 10/11/16 at 14:00 Nystatin 1 applic 1 applic BID TOP Last administered on 10/16/16 09:02; Admin Dose 1 APPLIC; Start 10/11/16 at 15:00 Caspofungin/ Sodium Chloride (Cancidas/NS) 250 ml @ 250 mls/hr Q24H IVPB Last administered on 10/15/16 15:10; Admin Dose 250 MLS/HR; Start 10/12/16 at 15:00 Nystatin (Nystatin Susp) 5 ml QID PO Last administered on 10/16/16 08:59; Admin Dose 5 ML; Start 10/11/16 at 13:58 Furosemide 20 mg 20 mg DAILY IV Last administered on 10/16/16 08:59; Admin Dose 20 MG; Start 10/14/16 at 09:00 Midazolam HCl (Versed) 50 ml @ 1 mls/hr TITRATE IV Last administered on 04:02; Admin Dose 10 MLS/HR; Start 10/13/16 at 17:00 SHARON LLAMAS Oct 16, 2016 09:41
[2016-10-16 09:47] LABS: LYMPHOCYTES # 0.5 10^3/ul (0.8-2.9); MONOCYTE # 0.3 10^3/ul (0.3-0.9); NEUTROPHIL # 14.5 10^3/ul (1.6-7.5)
[2016-10-16] MEDS: FENTAnyl PATCH 50 MCG/HR TRANSDERM SCH (10:38)
[2016-10-16] MEDS: LORAZEPAM 1 MG TAB PO SCH ×3 (10:39→21:52)
--- NOTE | 2016-10-16 12:50 | PN ---
DATE: 10/16/2016 CARDIOLOGY FOLLOWUP SUBJECTIVE: Discussed with the staff. Rhythm strip was reviewed. The patient remains in sinus rhy thm, no evidence of atrial fibrillation. No reported chest pain or pressure. Status post tracheost suma and PEG placement. Still appears to be confused. MEDICATIONS: Reviewed. PHYSICAL EXAMINATION: VITAL SIGNS: Temperature 98.6, heart rate of 91, blood pressure 105/82, respiratory rate of 15, sat urating 96%. HEENT: Normocephalic, atraumatic. Obese gentleman. Pupils are equal. NECK: Status post tracheostomy, on the vent now. CARDIOVASCULAR: Regular rate and rhythm, systolic murmur. PULMONARY: With no wheezes heard anteriorly. GASTROINTESTINAL: Obese, soft, nontender. EXTREMITIES: Trivial edema. NEUROLOGIC: Awake but confused. PSYCHIATRIC: Agitated. LABORATORY DATA: WBC of 15.3, hemoglobin 10.6, platelet of 140. Sodium 136, potassium 4.3, BUN of 35, creatinine 0.61, glucose of 188. Magnesium is 2.7. ASSESSMENT AND PLAN: 1. Hypoxemic, hypercapnic respiratory failure, status post tracheostomy now, ventilatory dependent. 2. Congestive heart failure/fluid overload. 3. History of paroxysmal atrial fibrillation, remains in sinus rhythm. 4. Pneumonia and sepsis. 5. Encephalopathy. 6. History of bipolar disorder, psych disorder. 7. Anemia. 8. Hypertension, currently under good control. 9 Dysphagia, status post percutaneous endoscopic gastrostomy placement. RECOMMENDATIONS: We will continue with the vent support and respiratory care as per pulmonary as to lerated. Continue with the IV Lasix. Antibiotics management as per internal medicine and pulmonary as well as ID's recommendations. DVT prophylaxis as tolerated will be continued. I will add to his regimen as well. Dictated By: BRENTON SAVAGE/ALYSON Conf#: [id number] DID#: [id number]
--- NOTE | 2016-10-16 14:28 | PN ---
Date/Time of Note Date/Time of Note DATE: 10/16/16 TIME: 14:27 Assessment/Plan Lines/Catheters IV Catheter Type (from Nrsg): PICC Line Estrella in Place (from Nrsg): Yes Assessment/Plan Chief Complaint/Hosp Course SP Tracheostomy will continue vent support trach care Problems: Subjective 24 Hr Interval Summary Constitutional: improved Pain Control: mild Exam/Review of Systems Vital Signs Vitals Vital Signs Date Time Temp Pulse Resp B/P Pulse Ox O2 Delivery O2 Flow Rate FiO2 10/16/16 12:00 30 10/16/16 12:00 87 10/16/16 11:00 17 119/81 98 Mechanical Ventilator 10/16/16 08:00 98.6 Intake and Output 10/15/16 10/15/16 10/16/16 15:00 23:00 07:00 Intake Total 330 ml 510 ml 615 ml Output Total 940 ml 480 ml 526 ml Balance -610 ml 30 ml 89 ml Exam Neck: non-tender, supple Respiratory: clear to auscultation, normal air movement Cardiovascular: nl pulses, regular rate and rhythm Gastrointestinal: nl liver, spleen, non-tender, soft Results Result Diagram: 10/16/16 0430 10/16/16 0430 ALBA RANDHAWA MD Oct 16, 2016 14:28
[2016-10-16] MEDS: CASPOFUNGIN 50 MG in SOD CHLORIDE 0.9% 250 ML IVPB SCH (15:02)
[2016-10-16] MEDS: SPIRONOLACTONE 25 MG TAB NGT SCH (15:06)
--- NOTE | 2016-10-16 17:00 | CONS ---
Date/Time of Note Date/Time of Note DATE: 10/16/16 TIME: 16:59 Assessment/Plan Assessment/Plan Additional Assessment/Plan IMPRESSION: 1. Respiratory failure. 2. Bipolar disorder. 3. Atrial fibrillation. 4. Dysphagia. Status post PEG, patient is tolerating for 5. Obesity. 6. Chronic obstructive pulmonary disease. 7. Candidiasis. Plan Continue present Continue feeding Patient can be transferred to telemetry floor. Consultation Date/Type/Reason Admit Date/Time Sep 29, 2016 at 09:25 Initial Consult Date Type of Consultation: Pulmonary/critical care 24 HR Interval Summary Constitutional: improved, no complaints Exam/Review of Systems Vital Signs Vitals Vital Signs Date Time Temp Pulse Resp B/P Pulse Ox O2 Delivery O2 Flow Rate FiO2 10/16/16 16:00 80 10/16/16 16:00 98.4 16 122/102 97 Mechanical Ventilator 10/16/16 12:00 30 Intake and Output 10/15/16 10/15/16 10/16/16 15:00 23:00 07:00 Intake Total 330 ml 510 ml 615 ml Output Total 940 ml 480 ml 526 ml Balance -610 ml 30 ml 89 ml Exam Constitutional: alert, oriented, well developed Psych: nl mood/affect, no complaints Head: atraumatic, normocephalic Eyes: EOMI, PERRL, nl conjunctiva, nl lids, nl sclera ENMT: nl external ears & nose, nl lips & teeth, nl nasal mucosa & septum Neck: non-tender, supple Respiratory: clear to auscultation, normal air movement Cardiovascular: nl pulses, regular rate and rhythm Gastrointestinal: nl liver, spleen, non-tender, soft Musculoskeletal: nl extremities to inspection, nl gait and stance Extremities: normal pulses Neurological: VISUAL DEVELOPER II-XII intact, nl mental status, nl speech, nl strength Skin: nl turgor, No rash or lesions Lymph: nl lymph nodes Results Result Diagram: 10/16/16 0430 10/16/16 0430 Results 24 hrs Laboratory Tests Test 10/16/16 04:30 White Blood Count 15.3 H Red Blood Count 3.45 L Hemoglobin 10.6 L Hematocrit 32.8 L Mean Corpuscular Volume 95.1 Mean Corpuscular Hemoglobin 30.7 Mean Corpuscular Hemoglobin Concent 32.3 Red Cell Distribution Width 13.2 Platelet Count 140 Mean Platelet Volume 10.5 H Neutrophils % 95.0 H Lymphocytes % 3.0 L Monocytes % 2.0 Neutrophils # 14.5 H Lymphocytes # 0.5 L Monocytes # 0.3 Sodium Level 136 Potassium Level 4.3 Chloride Level 92 L Carbon Dioxide Level 37 H Anion Gap 11 Blood Urea Nitrogen 35 H Creatinine 0.61 Glucose Level 188 Calcium Level 8.7 Phosphorus Level 2.9 Magnesium Level 2.7 H Medications Medications Current Medications Acetaminophen (Tylenol Tab) 650 mg Q4H PRN PO MILD PAIN LEVEL 1-3 Last administered on 10/10/16 01:39; Admin Dose 650 MG; Start 09/29/16 at 11:00 Acetaminophen (Tylenol Tab) 1,000 mg Q4H PRN PO PAIN LEVEL 4-6/10; Start at 11:00 Amiodarone HCl (Cordarone) 200 mg DAILY PO Last administered on 10/16/16 09:00 ; Admin Dose 200 MG; Start 09/30/16 at 09:00 Ascorbic Acid (Vitamin C) 500 mg DAILY PO Last administered on 10/16/16 09:01 ; Admin Dose 500 MG; Start 09/30/16 at 09:00 Aspirin (Aspirin) 81 mg DAILY PO Last administered on 10/16/16 08:59; Admin Dose 81 MG; Start 09/30/16 at 09:00 Atorvastatin Calcium (Lipitor) 5 mg QHS PO Last administered on 10/16/16 00:38 ; Admin Dose 5 MG; Start 09/29/16 at 21:00 Bisacodyl (Dulcolax Supp) 10 mg DAILY PRN [place] CONSTIPATION; Start 09/29/16 at 11 :00 Docusate Sodium (Colace) 200 mg QHS PRN PO CONSTIPATION; Start 09/29/16 at 11: 00 Loratadine (Claritin) 10 mg DAILY PO Last administered on 10/16/16 09:04; Admin Dose 10 MG; Start 09/30/16 at 09:00 Al Hydrox/Mg Hydrox/Simethicone (Mag-Al Plus) 30 ml Q6H PO Last administered on 10/16/16 10:45; Admin Dose 30 ML; Start 09/29/16 at 11:00 Magnesium Hydroxide (Milk Of Mag) 30 ml DAILY PRN PO CONSTIPATION Last administered on 10/11/16 20:35; Admin Dose 30 ML; Start 09/29/16 at 11:00 Metoprolol Tartrate (Lopressor) 25 mg BID PO Last administered on 10/16/16 09: 00; Admin Dose 25 MG; Start 09/29/16 at 21:00 Montelukast Sodium (Singulair) 10 mg QHS PO Last administered on 10/16/16 00: 38; Admin Dose 10 MG; Start 09/29/16 at 21:00 Multivitamins Therapeutic (Theragran) 1 tab DAILY PO Last administered on 09:00; Admin Dose 1 TAB; Start 09/30/16 at 09:00 Sodium Biphosphate/ Sodium Phosphate (Fleet Enema) 118 ml prn PRN [place] CONSTIPATION; Start 09/29/16 at 11:00 Eye Lubricant (Artificial Tears Oph) 1 drop TID BOTH EYES Last administered on 10/16/16 15:03; Admin Dose 1 DROP; Start 09/29/16 at 13:00 Lactobacillus Acidophilus (Florajen3 Capsule) 1 each BID PO Last administered on 10/16/16 08:59; Admin Dose 1 EACH; Start 09/29/16 at 21:00 Enoxaparin Sodium 40 mg 40 mg DAILY SC Last administered on 10/14/16 08:07; Admin Dose 40 MG; Start 09/30/16 at 09:00 Levofloxacin/ Dextrose (Levaquin 750 Mg/ D5W 150 ml (Pmx)) 150 ml @ 100 mls/hr Q24H IVPB Last administered on 10/16/16 09:02; Admin Dose 100 MLS/HR; Start at 09:30 Lansoprazole (Prevacid) 30 mg BID NGT Last administered on 10/16/16 08:59; Admin Dose 30 MG; Start 09/30/16 at 21:00 Lorazepam (Ativan) 0.5 mg Q8H PRN IV anxiety Last administered on 10/15/16 15: 37; Admin Dose 0.5 MG; Start 10/09/16 at 08:00 Methylprednisolone Sodium Succinate (Solu-Medrol) 60 mg BID IV Last administered on 10/16/16 09:01; Admin Dose 60 MG; Start 10/10/16 at 21:00 Quetiapine Fumarate (Seroquel) 25 mg QHS PRN NGT anxiety Last administered on 22:40; Admin Dose 25 MG; Start 10/11/16 at 21:00 Sodium Biphosphate/ Sodium Phosphate (Fleet Enema) 133 ml DAILY PRN [place] CONSTIPATION; Start 10/11/16 at 08:30 Betamethasone/ Clotrimazole (Lotrisone Cr) 1 applic BID TOP Last administered on 10/16/16 09:02; Admin Dose 1 APPLIC; Start 10/11/16 at 14:00 Nystatin 1 applic 1 applic BID TOP Last administered on 10/16/16 09:02; Admin Dose 1 APPLIC; Start 10/11/16 at 15:00 Caspofungin/ Sodium Chloride (Cancidas/NS) 250 ml @ 250 mls/hr Q24H IVPB Last administered on 10/16/16 15:02; Admin Dose 250 MLS/HR; Start 10/12/16 at 15:00 Nystatin (Nystatin Susp) 5 ml QID PO Last administered on 10/16/16 15:02; Admin Dose 5 ML; Start 10/11/16 at 13:58 Furosemide (Lasix) 20 mg DAILY IV Last administered on 10/16/16 08:59; Admin Dose 20 MG; Start 10/14/16 at 09:00 Fentanyl (Duragesic 50 Mcg/Hr Patch) 1 patch Q72H TRANSDERM Last administered on 10/16/16 10:38; Admin Dose 1 PATCH; Start 10/16/16 at 11:00 Lorazepam (Ativan) 2 mg Q6H PO Last administered on 10/16/16 16:15; Admin Dose 2 MG; Start 10/16/16 at 10:00 Spironolactone (Aldactone) 25 mg DAILY@06 NGT Last administered on 10/16/16 15 :06; Admin Dose 25 MG; Start 10/16/16 at 12:30 JULIA DE GUZMAN MD Oct 16, 2016 17:00
--- NOTE | 2016-10-16 17:20 | GILP ---
DATE OF PROCEDURE: 10/15/2016 NAME OF PROCEDURE: Percutaneous endoscopic gastrostomy. The patient is a 56-year-old male undergoing this procedure for dysphagia. The risks of the procedu re, related and unrelated complications, anesthetic risks, and alternatives discussed. Informed con sent was obtained. The procedure was done bedside immediately after tracheostomy. Patient was sedated by Dr. Rahman. After optimum sedation, scope was passed with much ease into the esophagus, advanced further down in to stomach and duodenum. There was no evidence of obstruction. By transillumination and digital pa lpation technique, appropriate site was chosen on the anterior abdominal wall. Site was sterilized with chlorhexidine solution, 2% Xylocaine instilled by safe method. A small incision was made. Thr ough that incision, trocar stylus passed into the stomach. Stylet was removed through the hollow ti p of the catheter, the insertion wire was passed and the entire procedure was completed by modified Ponsky technique. The patient was rescoped. The position of the internal bumper confirmed. Freezer Person al bumper secured. Tolerated the procedure very well. IMPRESSION: Successful placement of gastrostomy tube done. PLAN: Resume feeding through the G-tube after 6 hours and all the medication after 6 hours. Dictated By: JULIA ACKERMAN/ALYSON Conf#: [id number] DID#: [id number] CC: RAMY DOMINGUEZ DO;*EndCC*
--- NOTE | 2016-10-16 17:35 | CONS ---
Date/Time of Note Date/Time of Note DATE: 10/16/16 TIME: 17:26 Assessment/Plan Assessment/Plan Chief Complaint/Hosp Course ID PROGRESS NOTE TOTAL ABX DAY # 19 => Levaquin #9, Cancidas #6, oral nystatin s/p Zyvox/Merrem > DC'10/08/16 24H INTERVAL SUMMARY * New Trach -- He is awake, alert, communicative, ?mild confused -- he is pointing to Trach and pointing to the lower part of the bed. I held his hand and gave him encouragement about the Trach and the FC -- assured him that it will be easier for pulmonary team to wean him off the VENT now that trach was placed. Explained that the trach may be feeling uncomfortable to him since it is new, may feel strange in the back of his throat near the gag reflex -- assured him that my team is treating him for the PNA. Assured him that it may take weeks until he regains the strength to wean off the Vent; nevertheless, this is the goal. He has excellent eye contact and nods his head as if he understands, he squeezed my hand, I encouraged him that weaning will not happen in a matter of a few days, rest for now, and as his PNA improves he will start the weaning process. * WBC up post trach placement = expected PHYSICAL EXAMINATION: GENERAL: VSS, NAD -> Morbid obese M, no fevers HEENT: Unremarkable NECK: Supple, New Trach - secure w/scant dry blood CHEST: Equal chest rise bilaterally, without dyspnea on observation / Vented HEART: Pulse RRR - NSR on tele ABDOMEN: Soft, obese EXTREMITIES: Warm w/generalized dependent edema SKIN: Warm, dry ID ASSESSMENT: 56 yo obese M w/PMHx Psych-Bipolar, substance abuse (crack) admitted with: 1. Acute hypoxic respiratory failure -> Failed BIPAP, intubated 2. Healthcare-associated pneumonia, (+)aspiration PNA risk factors * Oral candidiasis RESPIRATORY CULTURE Preliminary Organism 1 YEAST QUANTITY SCANT GROWTH 3. Congestive heart failure exacerbation. 4. Suspect obesity hypoventilation syndrome vs FAY 5. COPD 6. GERD 7. Candidiasis => Oral, opportunistic respiratory sputum pathogen, dermatomycosis back, groin INVASIVES: * ETT, OGT, FC, PICC->10/06/16 ABX ALLERGIES: Vanco IV DPOA HEALTHCARE: [facility] [place]: [phone]. * Patient is A/A/O and currently able to make his own HC decisions. CURRENT ABX: # 19 => Levaquin #9, Cancidas #6, oral nystatin * ABX tapered day #10 =>s/p Zyvox/Merrem > DC'10/08/16 ID RECOMMENDATIONS: 1. Continue current ABX through the Trach, Peg process - 2. Repeat sputum in AM 3. Carlos eval . . . . . Problems: Consultation Date/Type/Reason Admit Date/Time Sep 29, 2016 at 09:25 Type of Consultation: ID Exam/Review of Systems Vital Signs Vitals Vital Signs Date Time Temp Pulse Resp B/P Pulse Ox O2 Delivery O2 Flow Rate FiO2 10/16/16 16:00 80 10/16/16 16:00 98.4 16 122/102 97 Mechanical Ventilator 10/16/16 12:00 30 Intake and Output 10/15/16 10/15/16 10/16/16 14:59 22:59 06:59 Intake Total 330 ml 510 ml 555 ml Output Total 865 ml 500 ml 506 ml Balance -535 ml 10 ml 49 ml Results Result Diagram: 10/16/16 0430 10/16/16 0430 Results 24 hrs Laboratory Tests Test 10/16/16 04:30 White Blood Count 15.3 H Red Blood Count 3.45 L Hemoglobin 10.6 L Hematocrit 32.8 L Mean Corpuscular Volume 95.1 Mean Corpuscular Hemoglobin 30.7 Mean Corpuscular Hemoglobin Concent 32.3 Red Cell Distribution Width 13.2 Platelet Count 140 Mean Platelet Volume 10.5 H Neutrophils % 95.0 H Lymphocytes % 3.0 L Monocytes % 2.0 Neutrophils # 14.5 H Lymphocytes # 0.5 L Monocytes # 0.3 Sodium Level 136 Potassium Level 4.3 Chloride Level 92 L Carbon Dioxide Level 37 H Anion Gap 11 Blood Urea Nitrogen 35 H Creatinine 0.61 Glucose Level 188 Calcium Level 8.7 Phosphorus Level 2.9 Magnesium Level 2.7 H Medications Medications Current Medications Acetaminophen (Tylenol Tab) 650 mg Q4H PRN PO MILD PAIN LEVEL 1-3 Last administered on 10/10/16t 01:39; Admin Dose 650 MG; Start 09/29/16 at 11:00 Acetaminophen (Tylenol Tab) 1,000 mg Q4H PRN PO PAIN LEVEL 4-6/10; Start at 11:00 Amiodarone HCl (Cordarone) 200 mg DAILY PO Last administered on 10/16/16 09:00 ; Admin Dose 200 MG; Start 09/30/16 at 09:00 Ascorbic Acid (Vitamin C) 500 mg DAILY PO Last administered on 10/16/16 09:01 ; Admin Dose 500 MG; Start 09/30/16 at 09:00 Aspirin (Aspirin) 81 mg DAILY PO Last administered on 10/16/16 08:59; Admin Dose 81 MG; Start 09/30/16 at 09:00 Atorvastatin Calcium (Lipitor) 5 mg QHS PO Last administered on 10/16/16 00:38 ; Admin Dose 5 MG; Start 09/29/16 at 21:00 Bisacodyl (Dulcolax Supp) 10 mg DAILY PRN [place] CONSTIPATION; Start 09/29/16 at 11 :00 Docusate Sodium (Colace) 200 mg QHS PRN PO CONSTIPATION; Start 09/29/16 at 11: 00 Loratadine (Claritin) 10 mg DAILY PO Last administered on 10/16/16 09:04; Admin Dose 10 MG; Start 09/30/16 at 09:00 Al Hydrox/Mg Hydrox/Simethicone (Mag-Al Plus) 30 ml Q6H PO Last administered on 10/16/16 10:45; Admin Dose 30 ML; Start 09/29/16 at 11:00 Magnesium Hydroxide (Milk Of Mag) 30 ml DAILY PRN PO CONSTIPATION Last administered on 10/11/16 20:35; Admin Dose 30 ML; Start 09/29/16 at 11:00 Metoprolol Tartrate (Lopressor) 25 mg BID PO Last administered on 10/16/16 09: 00; Admin Dose 25 MG; Start 09/29/16 at 21:00 Montelukast Sodium (Singulair) 10 mg QHS PO Last administered on 10/16/16 00: 38; Admin Dose 10 MG; Start 09/29/16 at 21:00 Multivitamins Therapeutic (Theragran) 1 tab DAILY PO Last administered on 09:00; Admin Dose 1 TAB; Start 09/30/16 at 09:00 Sodium Biphosphate/ Sodium Phosphate (Fleet Enema) 118 ml prn PRN [place] CONSTIPATION; Start 09/29/16 at 11:00 Eye Lubricant (Artificial Tears Oph) 1 drop TID BOTH EYES Last administered on 10/16/16 15:03; Admin Dose 1 DROP; Start 09/29/16 at 13:00 Lactobacillus Acidophilus (Florajen3 Capsule) 1 each BID PO Last administered on 10/16/16 08:59; Admin Dose 1 EACH; Start 09/29/16 at 21:00 Enoxaparin Sodium 40 mg 40 mg DAILY SC Last administered on 10/14/16 08:07; Admin Dose 40 MG; Start 09/30/16 at 09:00 Levofloxacin/ Dextrose (Levaquin 750 Mg/ D5W 150 ml (Pmx)) 150 ml @ 100 mls/hr Q24H IVPB Last administered on 10/16/16 09:02; Admin Dose 100 MLS/HR; Start at 09:30 Lansoprazole (Prevacid) 30 mg BID NGT Last administered on 10/16/16 08:59; Admin Dose 30 MG; Start 09/30/16 at 21:00 Lorazepam (Ativan) 0.5 mg Q8H PRN IV anxiety Last administered on 10/15/16 15: 37; Admin Dose 0.5 MG; Start 10/09/16 at 08:00 Methylprednisolone Sodium Succinate (Solu-Medrol) 60 mg BID IV Last administered on 10/16/16 09:01; Admin Dose 60 MG; Start 10/10/16 at 21:00 Quetiapine Fumarate (Seroquel) 25 mg QHS PRN NGT anxiety Last administered on 22:40; Admin Dose 25 MG; Start 10/11/16 at 21:00 Sodium Biphosphate/ Sodium Phosphate (Fleet Enema) 133 ml DAILY PRN [place] CONSTIPATION; Start 10/11/16 at 08:30 Betamethasone/ Clotrimazole (Lotrisone Cr) 1 applic BID TOP Last administered on 10/16/16 09:02; Admin Dose 1 APPLIC; Start 10/11/16 at 14:00 Nystatin 1 applic 1 applic BID TOP Last administered on 10/16/16 09:02; Admin Dose 1 APPLIC; Start 10/11/16 at 15:00 Caspofungin/ Sodium Chloride (Cancidas/NS) 250 ml @ 250 mls/hr Q24H IVPB Last administered on 10/16/16 15:02; Admin Dose 250 MLS/HR; Start 10/12/16 at 15:00 Nystatin (Nystatin Susp) 5 ml QID PO Last administered on 10/16/16 15:02; Admin Dose 5 ML; Start 10/11/16 at 13:58 Furosemide (Lasix) 20 mg DAILY IV Last administered on 10/16/16 08:59; Admin Dose 20 MG; Start 10/14/16 at 09:00 Fentanyl (Duragesic 50 Mcg/Hr Patch) 1 patch Q72H TRANSDERM Last administered on 10/16/16 10:38; Admin Dose 1 PATCH; Start 10/16/16 at 11:00 Lorazepam (Ativan) 2 mg Q6H PO Last administered on 10/16/16 16:15; Admin Dose 2 MG; Start 10/16/16 at 10:00 Spironolactone (Aldactone) 25 mg DAILY@06 NGT Last administered on 10/16/16 15 :06; Admin Dose 25 MG; Start 10/16/16 at 12:30 RAUL GOMEZ NP Oct 16, 2016 17:35
--- NOTE | 2016-10-16 19:06 | RADRPT ---
PROCEDURE: XR Chest. CLINICAL INDICATION: Shortness of breath. TECHNIQUE: Single frontal view. COMPARISON: 10/12/2016. FINDINGS: The tracheostomy tube is in satisfactory position. There is a right arm PICC line with the tip in t he lower superior vena cava. There is mild atelectasis at the right lung base, improved. The lungs are otherwise clear. The heart size is normal. There is no pleural effusion. There is no pneumothorax. IMPRESSION: 1. Improved appearance of the lungs. 2. Tracheostomy tube in satisfactory position. 3. No other change from 10/12/2016. RPTAT: QQ .Immanuel Dean MD, MD Date Time Electronically viewed and signed by .Immanuel Dean MD, MD on 10/16/2016 19:06 .R/
[2016-10-16] MEDS: QUETIAPINE 25 MG TAB NGT PRN (20:30)
[2016-10-17] VITALS (32 sets, daily range): BP systolic 107–153; BP diastolic 71–105; PULSE 69–107; RESP 12–22
[2016-10-17] MEDS: ALBUTEROL 18 GM INHALER INH SCH ×4 (01:26→19:43)
[2016-10-17] MEDS: AL HYDROX/MG HYDROX/SIMETH 30 ML CUP PO SCH ×4 (05:04→21:51)
[2016-10-17] MEDS: SPIRONOLACTONE 25 MG TAB NGT SCH (05:04)
[2016-10-17] MEDS: LORAZEPAM 1 MG TAB PO SCH ×4 (05:04→21:46)
[2016-10-17 06:02] LABS: ALBUMIN 3.4 g/dl (3.3-4.9)
[2016-10-17 06:03] LABS: POTASSIUM 4.3 mmol/L (3.5-5.1)
[2016-10-17 06:05] LABS: BILIRUBIN,INDIRECT 0.7 mg/dl (0-1.1); BILIRUBIN,TOTAL 0.7 mg/dl (0.2-1.3); CREATININE 0.57 mg/dl (0.61-1.24)
[2016-10-17 06:06] LABS: ALBUMIN/GLOBULIN RATIO 1.21; CALCIUM 8.8 mg/dl (8.4-10.2); TOTAL PROTEIN 6.2 g/dl (6.1-8.1)
[2016-10-17 06:07] LABS: MAGNESIUM 2.8 mg/dl (1.7-2.5)
[2016-10-17] MEDS: LORAZEPAM 2 MG INJ IV PRN (06:33)
[2016-10-17] MEDS: ACETAMINOPHEN 325 MG TAB PO PRN (06:47)
--- NOTE | 2016-10-17 07:51 | CONS ---
Date/Time of Note Date/Time of Note DATE: 10/17/16 TIME: 07:49 Consult Date/Type/Reason Admit Date/Time Sep 29, 2016 at 09:25 Type of Consultation: nephro/im Subjective pt. seen and examined in icu started on feeding..has loose bm awake/alert on vent, s/p trach. no sob/cp/f/c. pe: HEENT: Head is normocephalic. Pupils are reactive to light. NECK: Supple. HEART: Regular rate. LUNGS: Show diminished breath sounds at base. ABDOMEN: Soft, nontender to palpation without rebound or guarding. EXTREMITIES: Negative for clubbing, cyanosis. Trace edema. DERMATOLOGIC: No rashes. MUSCULOSKELETAL: No joint effusions. NEUROLOGIC: No change in exam. Objective Vital Signs Date Time Temp Pulse Resp B/P Pulse Ox O2 Delivery O2 Flow Rate FiO2 10/17/16 06:00 107 21 153/105 94 10/17/16 05:20 30 10/17/16 04:00 98.1 10/16/16 19:00 Mechanical Ventilator Intake and Output 10/16/16 10/16/16 10/17/16 15:00 23:00 07:00 Intake Total 878 ml 850 ml 450 ml Output Total 925 ml 790 ml 756 ml Balance -47 ml 60 ml -306 ml Results/Medications Result Diagram: 10/16/16 0430 10/17/16 0531 Results 24 hrs Laboratory Tests Test 10/17/16 05:31 Sodium Level 141 Potassium Level 4.3 Chloride Level 92 L Carbon Dioxide Level 38 H Anion Gap 15 Blood Urea Nitrogen 32 H Creatinine 0.57 L Glucose Level 186 Calcium Level 8.8 Magnesium Level 2.8 H Total Bilirubin 0.7 Direct Bilirubin 0.00 Indirect Bilirubin 0.7 Aspartate Amino Transf (AST/SGOT) 17 Alanine Aminotransferase (ALT/SGPT) 34 Alkaline Phosphatase 54 B-Type Natriuretic Peptide 232 H Total Protein 6.2 Albumin 3.4 Globulin 2.80 Albumin/Globulin Ratio 1.21 Medications Current Medications Acetaminophen (Tylenol Tab) 650 mg Q4H PRN PO MILD PAIN LEVEL 1-3 Last administered on 10/17/16t 06:47; Admin Dose 650 MG; Start 09/29/16 at 11:00 Acetaminophen (Tylenol Tab) 1,000 mg Q4H PRN PO PAIN LEVEL 4-6/10; Start at 11:00 Amiodarone HCl (Cordarone) 200 mg DAILY PO Last administered on 10/16/16 09:00 ; Admin Dose 200 MG; Start 09/30/16 at 09:00 Ascorbic Acid (Vitamin C) 500 mg DAILY PO Last administered on 10/16/16 09:01 ; Admin Dose 500 MG; Start 09/30/16 at 09:00 Aspirin (Aspirin) 81 mg DAILY PO Last administered on 10/16/16 08:59; Admin Dose 81 MG; Start 09/30/16 at 09:00 Atorvastatin Calcium (Lipitor) 5 mg QHS PO Last administered on 10/16/16 20:30 ; Admin Dose 5 MG; Start 09/29/16 at 21:00 Bisacodyl (Dulcolax Supp) 10 mg DAILY PRN [place]ATION; Start 09/29/16 at 11 :00 Docusate Sodium (Colace) 200 mg QHS PRN PO CONSTIPATION; Start 09/29/16 at 11: 00 Loratadine (Claritin) 10 mg DAILY PO Last administered on 10/16/16 09:04; Admin Dose 10 MG; Start 09/30/16 at 09:00 Al Hydrox/Mg Hydrox/Simethicone (Mag-Al Plus) 30 ml Q6H PO Last administered on 10/17/16 05:04; Admin Dose 30 ML; Start 09/29/16 at 11:00 Magnesium Hydroxide (Milk Of Mag) 30 ml DAILY PRN PO CONSTIPATION Last administered on 10/11/16 20:35; Admin Dose 30 ML; Start 09/29/16 at 11:00 Metoprolol Tartrate (Lopressor) 25 mg BID PO Last administered on 10/16/16 20: 29; Admin Dose 25 MG; Start 09/29/16 at 21:00 Montelukast Sodium (Singulair) 10 mg QHS PO Last administered on 10/16/16 20: 29; Admin Dose 10 MG; Start 09/29/16 at 21:00 Multivitamins Therapeutic (Theragran) 1 tab DAILY PO Last administered on 09:00; Admin Dose 1 TAB; Start 09/30/16 at 09:00 Sodium Biphosphate/ Sodium Phosphate (Fleet Enema) 118 ml prn PRN [place]; Start 09/29/16 at 11:00 Eye Lubricant (Artificial Tears Oph) 1 drop TID BOTH EYES Last administered on 10/16/16 20:30; Admin Dose 1 DROP; Start 09/29/16 at 13:00 Lactobacillus Acidophilus (Florajen3 Capsule) 1 each BID PO Last administered on 10/16/16 08:59; Admin Dose 1 EACH; Start 09/29/16 at 21:00 Enoxaparin Sodium 40 mg 40 mg DAILY SC Last administered on 10/14/16 08:07; Admin Dose 40 MG; Start 09/30/16 at 09:00 Levofloxacin/ Dextrose (Levaquin 750 Mg/ D5W 150 ml (Pmx)) 150 ml @ 100 mls/hr Q24H IVPB Last administered on 10/16/16 09:02; Admin Dose 100 MLS/HR; Start at 09:30 Lansoprazole (Prevacid) 30 mg BID NGT Last administered on 10/16/16 20:29; Admin Dose 30 MG; Start 09/30/16 at 21:00 Lorazepam (Ativan) 0.5 mg Q8H PRN IV anxiety Last administered on 10/17/16 06: 33; Admin Dose 0.5 MG; Start 10/09/16 at 08:00 Methylprednisolone Sodium Succinate (Solu-Medrol) 60 mg BID IV Last administered on 10/16/16 20:30; Admin Dose 60 MG; Start 10/10/16 at 21:00 Quetiapine Fumarate (Seroquel) 25 mg QHS PRN NGT anxiety Last administered on 20:30; Admin Dose 25 MG; Start 10/11/16 at 21:00 Sodium Biphosphate/ Sodium Phosphate (Fleet Enema) 133 ml DAILY PRN [place]; Start 10/11/16 at 08:30 Betamethasone/ Clotrimazole (Lotrisone Cr) 1 applic BID TOP Last administered on 10/16/16 20:32; Admin Dose 1 APPLIC; Start 10/11/16 at 14:00 Nystatin 1 applic 1 applic BID TOP Last administered on 10/16/16 20:31; Admin Dose 1 APPLIC; Start 10/11/16 at 15:00 Caspofungin/ Sodium Chloride (Cancidas/NS) 250 ml @ 250 mls/hr Q24H IVPB Last administered on 10/16/16 15:02; Admin Dose 250 MLS/HR; Start 10/12/16 at 15:00 Nystatin (Nystatin Susp) 5 ml QID PO Last administered on 10/16/16 20:29; Admin Dose 5 ML; Start 10/11/16 at 13:58 Furosemide (Lasix) 20 mg DAILY IV Last administered on 10/16/16 08:59; Admin Dose 20 MG; Start 10/14/16 at 09:00 Fentanyl (Duragesic 50 Mcg/Hr Patch) 1 patch Q72H TRANSDERM Last administered on 10/16/16 10:38; Admin Dose 1 PATCH; Start 10/16/16 at 11:00 Lorazepam (Ativan) 2 mg Q6H PO Last administered on 10/17/16 05:04; Admin Dose 2 MG; Start 10/16/16 at 10:00 Spironolactone (Aldactone) 25 mg DAILY@06 NGT Last administered on 10/17/16 05 :04; Admin Dose 25 MG; Start 10/16/16 at 12:30 Assessment/Plan Chief Complaint/Hosp Course 1. Ventilator dependent respiratory failure, etiology secondary to COPD exacerbation, chronic lung disease, CHF. The patient has failed multiple weaning trials pending a trach placement this morning. 2. Acute diastolic heart failure, clinically improving. Continue current diuretic regimen. 3. Mild hyponatremia, resolved. 4. Sepsis secondary to pneumonia. The patient has completed antibiotic course. 5. Leukocytosis secondary to sepsis, steroids, slightly worse, Continue to monitor. 6. Acute encephalopathy secondary to hypercapnia. Continue to monitor. 7. History of bipolar disorder. Continue Seroquel and Ativan p.r.n. 8. Anemia. Continue to monitor hemoglobin and hematocrit levels. 9. Coronary artery disease. Continue current medical management. 10. Azotemia secondary to underlying diuretic therapy and hypercatabolic state. Continue to monitor. 11. Hypertension. Continue current blood pressure regimen. 12. Dysphagia. s/p PEG, cont. feeds. 13. Gastrointestinal and deep venous thrombosis prophylaxis. Continue proton pump inhibitor and Lovenox. Please note I spent over 30 minutes of critical care time with this patient. Problems: HAZEL SOTOMAYOR MD Oct 17, 2016 07:51
[2016-10-17] MEDS: ASPIRIN 81 MG TAB PO SCH (08:52)
[2016-10-17] MEDS: ARTIFICIAL TEARS 15 ML OPH BOTH EYES SCH ×3 (08:52→21:49)
[2016-10-17] MEDS: METHYLPREDNISOLONE 125 MG INJ IV SCH ×2 (08:52→21:46)
[2016-10-17] MEDS: FUROSEMIDE 20 MG INJ IV SCH (08:52)
[2016-10-17] MEDS: LORATADINE 10 MG TAB PO SCH (08:52)
[2016-10-17] MEDS: LANSOPRAZOLE 30 MG CAP NGT SCH ×2 (08:52→21:46)
[2016-10-17] MEDS: ASCORBIC ACID 500 MG TAB PO SCH (08:53)
[2016-10-17] MEDS: MULTIVITAMINS THERAPEUTIC TAB PO SCH (08:53)
[2016-10-17] MEDS: NYSTATIN SUSP 5 ML CUP PO SCH ×4 (08:53→21:45)
[2016-10-17] MEDS: METOPROLOL 25 MG TAB PO SCH ×2 (08:53→21:47)
[2016-10-17] MEDS: AMIODARONE 200 MG TAB PO SCH (08:53)
[2016-10-17] MEDS: ENOXAPARIN 40 MG/0.4 ML SYG SC SCH (08:54)
[2016-10-17] MEDS: NYSTATIN 30 GM POWDER BTL TOP SCH ×2 (08:54→21:48)
[2016-10-17] MEDS: LEVOFLOXACIN 750MG/D5W (PMX) 150 ML IVPB SCH (08:54)
[2016-10-17] MEDS: BETAMETHASONE/CLOTRIMAZOLE 15 GM CR TOP SCH ×2 (09:03→21:47)
[2016-10-17] MEDS: L ACIDOPHIL/B LACTIS/B LONGUM CAPSULE PO SCH ×2 (09:53→22:00)
--- NOTE | 2016-10-17 10:41 | CONS ---
Date/Time of Note Date/Time of Note DATE: 10/17/16 TIME: 10:39 Assessment/Plan Assessment/Plan Additional Assessment/Plan Ventilator settings; AC of 16, tidal volume 500, PEEP of 5, 30% FiO2. Next X-ray was reviewed from 7 PM last evening which is essentially unremarkable. Assessment recommendations; 1. Patient admitted for respiratory failure due to COPD exacerbation secondary requiring tracheostomy. 2. History of hypertension. 3. History of cardiac arrhythmia. 4. History of likely underlying sleep apnea. 5. Hypotension with interval resolution. Continue current treatment. Patient will transfer to rehab center. Consider stopping caspofungin. Discontinue Levaquin. Consultation Date/Type/Reason Admit Date/Time Sep 29, 2016 at 09:25 Type of Consultation: Pulmonary/critical care 24 HR Interval Summary Free Text/Dictation Patient condition stable. Remains awake alert. Has remained hemodynamically stable. Off pressor support. General exam; middle-aged male, obese, on ventilator via tracheostomy currently in no distress. Awake and alert. Exam/Review of Systems Vital Signs Vitals Vital Signs Date Time Temp Pulse Resp B/P Pulse Ox O2 Delivery O2 Flow Rate FiO2 10/17/16 09:00 89 19 119/76 97 Mechanical Ventilator 10/17/16 08:00 98.4 10/17/16 08:00 30 Intake and Output 10/16/16 10/16/16 10/17/16 15:00 23:00 07:00 Intake Total 878 ml 850 ml 510 ml Output Total 925 ml 790 ml 836 ml Balance -47 ml 60 ml -326 ml Exam HEENT exam is; supple neck, JVD difficult to see because of short neck, tracheostomy in place with clean insertion site. No neck masses. No thyromegaly. Pupils are midsize and reactive to light. Chest exam is; diminished but clear vessel. S1-S2 audible, no murmurs. Regular rhythm. Abdomen examination; soft, protuberant. G-tube in place. Bowel sounds audible. Extremity examination; no peripheral edema. Pulses 1+ bilaterally. 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 Results Result Diagram: 10/16/16 0430 10/17/16 0531 Results 24 hrs Laboratory Tests Test 10/17/16 05:31 Sodium Level 141 Potassium Level 4.3 Chloride Level 92 L Carbon Dioxide Level 38 H Anion Gap 15 Blood Urea Nitrogen 32 H Creatinine 0.57 L Glucose Level 186 Calcium Level 8.8 Magnesium Level 2.8 H Total Bilirubin 0.7 Direct Bilirubin 0.00 Indirect Bilirubin 0.7 Aspartate Amino Transf (AST/SGOT) 17 Alanine Aminotransferase (ALT/SGPT) 34 Alkaline Phosphatase 54 B-Type Natriuretic Peptide 232 H Total Protein 6.2 Albumin 3.4 Globulin 2.80 Albumin/Globulin Ratio 1.21 Medications Medications Current Medications Acetaminophen (Tylenol Tab) 650 mg Q4H PRN PO MILD PAIN LEVEL 1-3 Last administered on 10/17/16 06:47; Admin Dose 650 MG; Start 09/29/16 at 11:00 Acetaminophen (Tylenol Tab) 1,000 mg Q4H PRN PO PAIN LEVEL 4-6/10; Start at 11:00 Amiodarone HCl (Cordarone) 200 mg DAILY PO Last administered on 10/17/16 08:53 ; Admin Dose 200 MG; Start 09/30/16 at 09:00 Ascorbic Acid (Vitamin C) 500 mg DAILY PO Last administered on 10/17/16 08:53 ; Admin Dose 500 MG; Start 09/30/16 at 09:00 Aspirin (Aspirin) 81 mg DAILY PO Last administered on 10/17/16 08:52; Admin Dose 81 MG; Start 09/30/16 at 09:00 Atorvastatin Calcium (Lipitor) 5 mg QHS PO Last administered on 10/16/16 20:30 ; Admin Dose 5 MG; Start 09/29/16 at 21:00 Bisacodyl (Dulcolax Supp) 10 mg DAILY PRN [place] CONSTIPATION; Start 09/29/16 at 11 :00 Docusate Sodium (Colace) 200 mg QHS PRN PO CONSTIPATION; Start 09/29/16 at 11: 00 Loratadine (Claritin) 10 mg DAILY PO Last administered on 10/17/16 08:52; Admin Dose 10 MG; Start 09/30/16 at 09:00 Al Hydrox/Mg Hydrox/Simethicone (Mag-Al Plus) 30 ml Q6H PO Last administered on 10/17/16 10:00; Admin Dose 30 ML; Start 09/29/16 at 11:00 Magnesium Hydroxide (Milk Of Mag) 30 ml DAILY PRN PO CONSTIPATION Last administered on 10/11/16 20:35; Admin Dose 30 ML; Start 09/29/16 at 11:00 Metoprolol Tartrate (Lopressor) 25 mg BID PO Last administered on 10/17/16 08: 53; Admin Dose 25 MG; Start 09/29/16 at 21:00 Montelukast Sodium (Singulair) 10 mg QHS PO Last administered on 10/16/16 20: 29; Admin Dose 10 MG; Start 09/29/16 at 21:00 Multivitamins Therapeutic (Theragran) 1 tab DAILY PO Last administered on 08:53; Admin Dose 1 TAB; Start 09/30/16 at 09:00 Sodium Biphosphate/ Sodium Phosphate (Fleet Enema) 118 ml prn PRN [place] CONSTIPATION; Start 09/29/16 at 11:00 Eye Lubricant (Artificial Tears Oph) 1 drop TID BOTH EYES Last administered on 10/17/16 08:52; Admin Dose 1 DROP; Start 09/29/16 at 13:00 Lactobacillus Acidophilus (Florajen3 Capsule) 1 each BID PO Last administered on 10/17/16 09:53; Admin Dose 1 EACH; Start 09/29/16 at 21:00 Enoxaparin Sodium (Lovenox) 40 mg DAILY SC Last administered on 10/17/16 08:54 ; Admin Dose 40 MG; Start 09/30/16 at 09:00 Lansoprazole (Prevacid) 30 mg BID NGT Last administered on 10/17/16 08:52; Admin Dose 30 MG; Start 09/30/16 at 21:00 Lorazepam (Ativan) 0.5 mg Q8H PRN IV anxiety Last administered on 10/17/16 06: 33; Admin Dose 0.5 MG; Start 10/09/16 at 08:00 Methylprednisolone Sodium Succinate (Solu-Medrol) 60 mg BID IV Last administered on 10/17/16 08:52; Admin Dose 60 MG; Start 10/10/16 at 21:00 Quetiapine Fumarate (Seroquel) 25 mg QHS PRN NGT anxiety Last administered on 20:30; Admin Dose 25 MG; Start 10/11/16 at 21:00 Sodium Biphosphate/ Sodium Phosphate (Fleet Enema) 133 ml DAILY PRN [place] CONSTIPATION; Start 10/11/16 at 08:30 Betamethasone/ Clotrimazole (Lotrisone Cr) 1 applic BID TOP Last administered on 10/17/16 09:03; Admin Dose 1 APPLIC; Start 10/11/16 at 14:00 Nystatin 1 applic 1 applic BID TOP Last administered on 10/17/16 08:54; Admin Dose 1 APPLIC; Start 10/11/16 at 15:00 Caspofungin/ Sodium Chloride (Cancidas/NS) 250 ml @ 250 mls/hr Q24H IVPB Last administered on 10/16/16 15:02; Admin Dose 250 MLS/HR; Start 10/12/16 at 15:00 Nystatin (Nystatin Susp) 5 ml QID PO Last administered on 10/17/16 08:53; Admin Dose 5 ML; Start 10/11/16 at 13:58 Furosemide (Lasix) 20 mg DAILY IV Last administered on 10/17/16 08:52; Admin Dose 20 MG; Start 10/14/16 at 09:00 Fentanyl (Duragesic 50 Mcg/Hr Patch) 1 patch Q72H TRANSDERM Last administered on 10/16/16 10:38; Admin Dose 1 PATCH; Start 10/16/16 at 11:00 Lorazepam (Ativan) 2 mg Q6H PO Last administered on 10/17/16 09:53; Admin Dose 2 MG; Start 10/16/16 at 10:00 Spironolactone (Aldactone) 25 mg DAILY@06 NGT Last administered on 10/17/16 05 :04; Admin Dose 25 MG; Start 10/16/16 at 12:30 SHARON LLAMAS Oct 17, 2016 10:41
--- NOTE | 2016-10-17 11:30 | CONS ---
Date/Time of Note Date/Time of Note DATE: 10/17/16 TIME: 11:28 Assessment/Plan Assessment/Plan Chief Complaint/Hosp Course ID PROGRESS NOTE TOTAL ABX DAY # 20 => Levaquin #10, Cancidas #7, oral nystatin s/p Zyvox/Merrem > DC'10/08/16 24H INTERVAL SUMMARY * Resting on the Vent, new trach, awakens, no fevers * WBC up post trach placement = expected * 10/17/16 CXR: IMPRESSION: 1. Improved appearance of the lungs. 2. Tracheostomy tube in satisfactory position. 3. No other change from 10/12/2016. PHYSICAL EXAMINATION: GENERAL: VSS, NAD -> Morbid obese M, no fevers HEENT: Unremarkable NECK: Supple, New Trach - secure w/scant dry blood CHEST: Equal chest rise bilaterally, without dyspnea on observation / Vented HEART: Pulse RRR - NSR on tele ABDOMEN: Soft, obese EXTREMITIES: Warm w/generalized dependent edema SKIN: Warm, dry ID ASSESSMENT: 56 yo obese M w/PMHx Psych-Bipolar, substance abuse (crack) admitted with: 1. Acute hypoxic respiratory failure -> Failed BIPAP, intubated 2. Healthcare-associated pneumonia, (+)aspiration PNA risk factors * Oral candidiasis RESPIRATORY CULTURE Preliminary Organism 1 YEAST QUANTITY SCANT GROWTH 3. Congestive heart failure exacerbation. 4. Suspect obesity hypoventilation syndrome vs FAY 5. COPD 6. GERD 7. Candidiasis => Oral, opportunistic respiratory sputum pathogen, dermatomycosis back, groin INVASIVES: * ETT, OGT, FC, PICC->10/06/16 ABX ALLERGIES: Vanco IV [phone]. * Patient is A/A/O and currently able to make his own HC decisions. CURRENT ABX: # 20 => Levaquin #10, Cancidas #7, oral nystatin * ABX tapered day #10 =>s/p Zyvox/Merrem > DC'd4 ID RECOMMENDATIONS: 1. Continue current ABX through the Trach, Peg process - 2. Repeat sputum 10/17 TODAY -> Taper ABX per sputum Cx result 3. Carlos eval . . . . . Problems: Consultation Date/Type/Reason Admit Date/Time Sep 29, 2016 at 09:25 Type of Consultation: ID Exam/Review of Systems Vital Signs Vitals Vital Signs Date Time Temp Pulse Resp B/P Pulse Ox O2 Delivery O2 Flow Rate FiO2 10/17/16 09:00 89 19 119/76 97 Mechanical Ventilator 10/17/16 08:00 98.4 10/17/16 08:00 30 Intake and Output 10/16/16 10/16/16 10/17/16 15:00 23:00 07:00 Intake Total 878 ml 850 ml 510 ml Output Total 925 ml 790 ml 836 ml Balance -47 ml 60 ml -326 ml Results Result Diagram: 10/16/16 0430 10/17/16 0531 Results 24 hrs Laboratory Tests Test 10/17/16 05:31 Sodium Level 141 Potassium Level 4.3 Chloride Level 92 L Carbon Dioxide Level 38 H Anion Gap 15 Blood Urea Nitrogen 32 H Creatinine 0.57 L Glucose Level 186 Calcium Level 8.8 Magnesium Level 2.8 H Total Bilirubin 0.7 Direct Bilirubin 0.00 Indirect Bilirubin 0.7 Aspartate Amino Transf (AST/SGOT) 17 Alanine Aminotransferase (ALT/SGPT) 34 Alkaline Phosphatase 54 B-Type Natriuretic Peptide 232 H Total Protein 6.2 Albumin 3.4 Globulin 2.80 Albumin/Globulin Ratio 1.21 Medications Medications Current Medications Acetaminophen (Tylenol Tab) 650 mg Q4H PRN PO MILD PAIN LEVEL 1-3 Last administered on 10/17/16 06:47; Admin Dose 650 MG; Start 09/29/16 at 11:00 Acetaminophen (Tylenol Tab) 1,000 mg Q4H PRN PO PAIN LEVEL 4-6/10; Start at 11:00 Amiodarone HCl (Cordarone) 200 mg DAILY PO Last administered on 10/17/16 08:53 ; Admin Dose 200 MG; Start 09/30/16 at 09:00 Ascorbic Acid (Vitamin C) 500 mg DAILY PO Last administered on 10/17/16 08:53 ; Admin Dose 500 MG; Start 09/30/16 at 09:00 Aspirin (Aspirin) 81 mg DAILY PO Last administered on 10/17/16 08:52; Admin Dose 81 MG; Start 09/30/16 at 09:00 Atorvastatin Calcium (Lipitor) 5 mg QHS PO Last administered on 10/16/16 20:30 ; Admin Dose 5 MG; Start 09/29/16 at 21:00 Bisacodyl (Dulcolax Supp) 10 mg DAILY PRN [place] CONSTIPATION; Start 09/29/16 at 11 :00 Docusate Sodium (Colace) 200 mg QHS PRN PO CONSTIPATION; Start 09/29/16 at 11: 00 Loratadine (Claritin) 10 mg DAILY PO Last administered on 10/17/16 08:52; Admin Dose 10 MG; Start 09/30/16 at 09:00 Al Hydrox/Mg Hydrox/Simethicone (Mag-Al Plus) 30 ml Q6H PO Last administered on 10/17/16 10:00; Admin Dose 30 ML; Start 09/29/16 at 11:00 Magnesium Hydroxide (Milk Of Mag) 30 ml DAILY PRN PO CONSTIPATION Last administered on 10/11/16 20:35; Admin Dose 30 ML; Start 09/29/16 at 11:00 Metoprolol Tartrate (Lopressor) 25 mg BID PO Last administered on 10/17/16 08: 53; Admin Dose 25 MG; Start 09/29/16 at 21:00 Montelukast Sodium (Singulair) 10 mg QHS PO Last administered on 10/16/16 20: 29; Admin Dose 10 MG; Start 09/29/16 at 21:00 Multivitamins Therapeutic (Theragran) 1 tab DAILY PO Last administered on 08:53; Admin Dose 1 TAB; Start 09/30/16 at 09:00 Sodium Biphosphate/ Sodium Phosphate (Fleet Enema) 118 ml prn PRN [place] CONSTIPATION; Start 09/29/16 at 11:00 Eye Lubricant (Artificial Tears Oph) 1 drop TID BOTH EYES Last administered on 10/17/16 08:52; Admin Dose 1 DROP; Start 09/29/16 at 13:00 Lactobacillus Acidophilus (Florajen3 Capsule) 1 each BID PO Last administered on 10/17/16 09:53; Admin Dose 1 EACH; Start 09/29/16 at 21:00 Enoxaparin Sodium (Lovenox) 40 mg DAILY SC Last administered on 10/17/16 08:54 ; Admin Dose 40 MG; Start 09/30/16 at 09:00 Lansoprazole (Prevacid) 30 mg BID NGT Last administered on 10/17/16 08:52; Admin Dose 30 MG; Start 09/30/16 at 21:00 Lorazepam (Ativan) 0.5 mg Q8H PRN IV anxiety Last administered on 10/17/16 06: 33; Admin Dose 0.5 MG; Start 10/09/16 at 08:00 Methylprednisolone Sodium Succinate (Solu-Medrol) 60 mg BID IV Last administered on 10/17/16 08:52; Admin Dose 60 MG; Start 10/10/16 at 21:00 Quetiapine Fumarate (Seroquel) 25 mg QHS PRN NGT anxiety Last administered on 20:30; Admin Dose 25 MG; Start 10/11/16 at 21:00 Sodium Biphosphate/ Sodium Phosphate (Fleet Enema) 133 ml DAILY PRN [place] CONSTIPATION; Start 10/11/16 at 08:30 Betamethasone/ Clotrimazole (Lotrisone Cr) 1 applic BID TOP Last administered on 10/17/16 09:03; Admin Dose 1 APPLIC; Start 10/11/16 at 14:00 Nystatin 1 applic 1 applic BID TOP Last administered on 10/17/16 08:54; Admin Dose 1 APPLIC; Start 10/11/16 at 15:00 Caspofungin/ Sodium Chloride (Cancidas/NS) 250 ml @ 250 mls/hr Q24H IVPB Last administered on 10/16/16 15:02; Admin Dose 250 MLS/HR; Start 10/12/16 at 15:00 Nystatin (Nystatin Susp) 5 ml QID PO Last administered on 10/17/16 08:53; Admin Dose 5 ML; Start 10/11/16 at 13:58 Furosemide (Lasix) 20 mg DAILY IV Last administered on 10/17/16 08:52; Admin Dose 20 MG; Start 10/14/16 at 09:00 Fentanyl (Duragesic 50 Mcg/Hr Patch) 1 patch Q72H TRANSDERM Last administered on 10/16/16 10:38; Admin Dose 1 PATCH; Start 10/16/16 at 11:00 Lorazepam (Ativan) 2 mg Q6H PO Last administered on 10/17/16 09:53; Admin Dose 2 MG; Start 10/16/16 at 10:00 Spironolactone (Aldactone) 25 mg DAILY@06 NGT Last administered on 10/17/16t 05 :04; Admin Dose 25 MG; Start 10/16/16 at 12:30 RAUL GOMEZ NP Oct 17, 2016 11:30
--- NOTE | 2016-10-17 11:39 | CONS ---
Date/Time of Note Date/Time of Note DATE: 10/17/16 TIME: 11:38 Assessment/Plan Assessment/Plan Additional Assessment/Plan Additional Assessment/Plan IMPRESSION: 1. Respiratory failure. 2. Bipolar disorder. 3. Atrial fibrillation. 4. Dysphagia. Status post PEG, patient is tolerating feeding, G-tube site is very clean 5. Obesity. 6. Chronic obstructive pulmonary disease. 7. Candidiasis. Plan Continue present Continue feeding Patient can be transferred to telemetry floor. Abdominal binder all the time No dressing around the G-tube site Consultation Date/Type/Reason Admit Date/Time Sep 29, 2016 at 09:25 Type of Consultation: ID 24 HR Interval Summary Constitutional: improved, no complaints Exam/Review of Systems Vital Signs Vitals Vital Signs Date Time Temp Pulse Resp B/P Pulse Ox O2 Delivery O2 Flow Rate FiO2 10/17/16 09:00 89 19 119/76 97 Mechanical Ventilator 10/17/16 08:00 98.4 10/17/16 08:00 30 Intake and Output 10/16/16 10/16/16 10/17/16 15:00 23:00 07:00 Intake Total 878 ml 850 ml 510 ml Output Total 925 ml 790 ml 836 ml Balance -47 ml 60 ml -326 ml Exam Constitutional: alert, oriented, well developed Psych: nl mood/affect, no complaints Head: atraumatic, normocephalic Eyes: EOMI, PERRL, nl conjunctiva, nl lids, nl sclera ENMT: nl external ears & nose, nl lips & teeth, nl nasal mucosa & septum Neck: non-tender, supple Respiratory: clear to auscultation, normal air movement Cardiovascular: nl pulses, regular rate and rhythm Gastrointestinal: nl liver, spleen, non-tender, soft Musculoskeletal: nl extremities to inspection, nl gait and stance Extremities: normal pulses Neurological: 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 PRESS 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 II-XII intact, nl mental status, nl speech, nl strength Skin: nl turgor, No rash or lesions Lymph: nl lymph nodes Results Result Diagram: 10/16/16 0430 10/17/16 0531 Results 24 hrs Laboratory Tests Test 10/17/16 05:31 Sodium Level 141 Potassium Level 4.3 Chloride Level 92 L Carbon Dioxide Level 38 H Anion Gap 15 Blood Urea Nitrogen 32 H Creatinine 0.57 L Glucose Level 186 Calcium Level 8.8 Magnesium Level 2.8 H Total Bilirubin 0.7 Direct Bilirubin 0.00 Indirect Bilirubin 0.7 Aspartate Amino Transf (AST/SGOT) 17 Alanine Aminotransferase (ALT/SGPT) 34 Alkaline Phosphatase 54 B-Type Natriuretic Peptide 232 H Total Protein 6.2 Albumin 3.4 Globulin 2.80 Albumin/Globulin Ratio 1.21 Medications Medications Current Medications Acetaminophen (Tylenol Tab) 650 mg Q4H PRN PO MILD PAIN LEVEL 1-3 Last administered on 10/17/16 06:47; Admin Dose 650 MG; Start 09/29/16 at 11:00 Acetaminophen (Tylenol Tab) 1,000 mg Q4H PRN PO PAIN LEVEL 4-6/10; Start at 11:00 Amiodarone HCl (Cordarone) 200 mg DAILY PO Last administered on 10/17/16 08:53 ; Admin Dose 200 MG; Start 09/30/16 at 09:00 Ascorbic Acid (Vitamin C) 500 mg DAILY PO Last administered on 10/17/16 08:53 ; Admin Dose 500 MG; Start 09/30/16 at 09:00 Aspirin (Aspirin) 81 mg DAILY PO Last administered on 10/17/16 08:52; Admin Dose 81 MG; Start 09/30/16 at 09:00 Atorvastatin Calcium (Lipitor) 5 mg QHS PO Last administered on 10/16/16 20:30 ; Admin Dose 5 MG; Start 09/29/16 at 21:00 Bisacodyl (Dulcolax Supp) 10 mg DAILY PRN [place] CONSTIPATION; Start 09/29/16 at 11 :00 Docusate Sodium (Colace) 200 mg QHS PRN PO CONSTIPATION; Start 09/29/16 at 11: 00 Loratadine (Claritin) 10 mg DAILY PO Last administered on 10/17/16 08:52; Admin Dose 10 MG; Start 09/30/16 at 09:00 Al Hydrox/Mg Hydrox/Simethicone (Mag-Al Plus) 30 ml Q6H PO Last administered on 10/17/16 10:00; Admin Dose 30 ML; Start 09/29/16 at 11:00 Magnesium Hydroxide (Milk Of Mag) 30 ml DAILY PRN PO CONSTIPATION Last administered on 10/11/16 20:35; Admin Dose 30 ML; Start 09/29/16 at 11:00 Metoprolol Tartrate (Lopressor) 25 mg BID PO Last administered on 10/17/16 08: 53; Admin Dose 25 MG; Start 09/29/16 at 21:00 Montelukast Sodium (Singulair) 10 mg QHS PO Last administered on 10/16/16 20: 29; Admin Dose 10 MG; Start 09/29/16 at 21:00 Multivitamins Therapeutic (Theragran) 1 tab DAILY PO Last administered on 08:53; Admin Dose 1 TAB; Start 09/30/16 at 09:00 Sodium Biphosphate/ Sodium Phosphate (Fleet Enema) 118 ml prn PRN [place] CONSTIPATION; Start 09/29/16 at 11:00 Eye Lubricant (Artificial Tears Oph) 1 drop TID BOTH EYES Last administered on 10/17/16 08:52; Admin Dose 1 DROP; Start 09/29/16 at 13:00 Lactobacillus Acidophilus (Florajen3 Capsule) 1 each BID PO Last administered on 10/17/16 09:53; Admin Dose 1 EACH; Start 09/29/16 at 21:00 Enoxaparin Sodium (Lovenox) 40 mg DAILY SC Last administered on 10/17/16 08:54 ; Admin Dose 40 MG; Start 09/30/16 at 09:00 Lansoprazole (Prevacid) 30 mg BID NGT Last administered on 10/17/16 08:52; Admin Dose 30 MG; Start 09/30/16 at 21:00 Lorazepam (Ativan) 0.5 mg Q8H PRN IV anxiety Last administered on 10/17/16 06: 33; Admin Dose 0.5 MG; Start 10/09/16 at 08:00 Methylprednisolone Sodium Succinate (Solu-Medrol) 60 mg BID IV Last administered on 10/17/16 08:52; Admin Dose 60 MG; Start 10/10/16 at 21:00 Quetiapine Fumarate (Seroquel) 25 mg QHS PRN NGT anxiety Last administered on 20:30; Admin Dose 25 MG; Start 10/11/16 at 21:00 Sodium Biphosphate/ Sodium Phosphate (Fleet Enema) 133 ml DAILY PRN [place] CONSTIPATION; Start 10/11/16 at 08:30 Betamethasone/ Clotrimazole (Lotrisone Cr) 1 applic BID TOP Last administered on 10/17/16 09:03; Admin Dose 1 APPLIC; Start 10/11/16 at 14:00 Nystatin 1 applic 1 applic BID TOP Last administered on 10/17/16 08:54; Admin Dose 1 APPLIC; Start 10/11/16 at 15:00 Caspofungin/ Sodium Chloride (Cancidas/NS) 250 ml @ 250 mls/hr Q24H IVPB Last administered on 10/16/16 15:02; Admin Dose 250 MLS/HR; Start 10/12/16 at 15:00 Nystatin (Nystatin Susp) 5 ml QID PO Last administered on 10/17/16 08:53; Admin Dose 5 ML; Start 10/11/16 at 13:58 Furosemide (Lasix) 20 mg DAILY IV Last administered on 10/17/16 08:52; Admin Dose 20 MG; Start 10/14/16 at 09:00 Fentanyl (Duragesic 50 Mcg/Hr Patch) 1 patch Q72H TRANSDERM Last administered on 10/16/16 10:38; Admin Dose 1 PATCH; Start 10/16/16 at 11:00 Lorazepam (Ativan) 2 mg Q6H PO Last administered on 10/17/16 09:53; Admin Dose 2 MG; Start 10/16/16 at 10:00 Spironolactone (Aldactone) 25 mg DAILY@06 NGT Last administered on 10/17/16 05 :04; Admin Dose 25 MG; Start 10/16/16 at 12:30 JULIA DE GUZMAN MD Oct 17, 2016 11:39
--- NOTE | 2016-10-17 14:16 | PN ---
Date/Time of Note Date/Time of Note DATE: 10/17/16 TIME: 14:16 Assessment/Plan VTE Prophylaxis VTE Prophylaxis Intervention: other Lines/Catheters IV Catheter Type (from Nrs): Urinary Cath still in place: Yes Assessment/Plan Chief Complaint/Hosp Course SP Tracheostomy will continue vent support trach care Problems: Subjective 24 Hr Interval Summary Gastrointestinal: no complaints Genitourinary: no complaints Musculoskeletal: no complaints Skin: no complaints Neurologic: no complaints Exam/Review of Systems Vital Signs Vitals Vital Signs Date Time Temp Pulse Resp B/P Pulse Ox O2 Delivery O2 Flow Rate FiO2 10/17/16 13:00 81 12 110/72 97 Mechanical Ventilator 10/17/16 12:00 98.8 10/17/16 08:00 30 Intake and Output 10/16/16 10/16/16 10/17/16 15:00 23:00 07:00 Intake Total 878 ml 850 ml 510 ml Output Total 925 ml 790 ml 836 ml Balance -47 ml 60 ml -326 ml Exam ENMT: nl external ears & nose, nl lips & teeth, nl nasal mucosa & septum Neck: non-tender, supple Respiratory: clear to auscultation, normal air movement Cardiovascular: nl pulses, regular rate and rhythm Results Result Diagram: 10/16/16 0430 10/17/16 0531 Results 24 hrs Laboratory Tests Test 10/17/16 05:31 Sodium Level 141 Potassium Level 4.3 Chloride Level 92 L Carbon Dioxide Level 38 H Anion Gap 15 Blood Urea Nitrogen 32 H Creatinine 0.57 L Glucose Level 186 Calcium Level 8.8 Magnesium Level 2.8 H Total Bilirubin 0.7 Direct Bilirubin 0.00 Indirect Bilirubin 0.7 Aspartate Amino Transf (AST/SGOT) 17 Alanine Aminotransferase (ALT/SGPT) 34 Alkaline Phosphatase 54 B-Type Natriuretic Peptide 232 H Total Protein 6.2 Albumin 3.4 Globulin 2.80 Albumin/Globulin Ratio 1.21 Medications Medications Current Medications Acetaminophen (Tylenol Tab) 650 mg Q4H PRN PO MILD PAIN LEVEL 1-3 Last administered on 10/17/16t 06:47; Admin Dose 650 MG; Start 09/29/16 at 11:00 Acetaminophen (Tylenol Tab) 1,000 mg Q4H PRN PO PAIN LEVEL 4-6/10; Start at 11:00 Amiodarone HCl (Cordarone) 200 mg DAILY PO Last administered on 10/17/16 08:53 ; Admin Dose 200 MG; Start 09/30/16 at 09:00 Ascorbic Acid (Vitamin C) 500 mg DAILY PO Last administered on 10/17/16 08:53 ; Admin Dose 500 MG; Start 09/30/16 at 09:00 Aspirin (Aspirin) 81 mg DAILY PO Last administered on 10/17/16 08:52; Admin Dose 81 MG; Start 09/30/16 at 09:00 Atorvastatin Calcium (Lipitor) 5 mg QHS PO Last administered on 10/16/16 20:30 ; Admin Dose 5 MG; Start 09/29/16 at 21:00 Bisacodyl (Dulcolax Supp) 10 mg DAILY PRN [place] CONSTIPATION; Start 09/29/16 at 11 :00 Docusate Sodium (Colace) 200 mg QHS PRN PO CONSTIPATION; Start 09/29/16 at 11: 00 Loratadine (Claritin) 10 mg DAILY PO Last administered on 10/17/16 08:52; Admin Dose 10 MG; Start 09/30/16 at 09:00 Al Hydrox/Mg Hydrox/Simethicone (Mag-Al Plus) 30 ml Q6H PO Last administered on 10/17/16 10:00; Admin Dose 30 ML; Start 09/29/16 at 11:00 Magnesium Hydroxide (Milk Of Mag) 30 ml DAILY PRN PO CONSTIPATION Last administered on 10/11/16 20:35; Admin Dose 30 ML; Start 09/29/16 at 11:00 Metoprolol Tartrate (Lopressor) 25 mg BID PO Last administered on 10/17/16 08: 53; Admin Dose 25 MG; Start 09/29/16 at 21:00 Montelukast Sodium (Singulair) 10 mg QHS PO Last administered on 10/16/16 20: 29; Admin Dose 10 MG; Start 09/29/16 at 21:00 Multivitamins Therapeutic (Theragran) 1 tab DAILY PO Last administered on 08:53; Admin Dose 1 TAB; Start 09/30/16 at 09:00 Sodium Biphosphate/ Sodium Phosphate (Fleet Enema) 118 ml prn PRN [place] CONSTIPATION; Start 09/29/16 at 11:00 Eye Lubricant (Artificial Tears Oph) 1 drop TID BOTH EYES Last administered on 10/17/16 12:54; Admin Dose 1 DROP; Start 09/29/16 at 13:00 Lactobacillus Acidophilus (Florajen3 Capsule) 1 each BID PO Last administered on 10/17/16 09:53; Admin Dose 1 EACH; Start 09/29/16 at 21:00 Enoxaparin Sodium (Lovenox) 40 mg DAILY SC Last administered on 10/17/16 08:54 ; Admin Dose 40 MG; Start 09/30/16 at 09:00 Lansoprazole (Prevacid) 30 mg BID NGT Last administered on 10/17/16 08:52; Admin Dose 30 MG; Start 09/30/16 at 21:00 Lorazepam (Ativan) 0.5 mg Q8H PRN IV anxiety Last administered on 10/17/16 06: 33; Admin Dose 0.5 MG; Start 10/09/16 at 08:00 Methylprednisolone Sodium Succinate (Solu-Medrol) 60 mg BID IV Last administered on 10/17/16 08:52; Admin Dose 60 MG; Start 10/10/16 at 21:00 Quetiapine Fumarate (Seroquel) 25 mg QHS PRN NGT anxiety Last administered on 20:30; Admin Dose 25 MG; Start 10/11/16 at 21:00 Sodium Biphosphate/ Sodium Phosphate (Fleet Enema) 133 ml DAILY PRN [place] CONSTIPATION; Start 10/11/16 at 08:30 Betamethasone/ Clotrimazole (Lotrisone Cr) 1 applic BID TOP Last administered on 10/17/16 09:03; Admin Dose 1 APPLIC; Start 10/11/16 at 14:00 Nystatin 1 applic 1 applic BID TOP Last administered on 10/17/16 08:54; Admin Dose 1 APPLIC; Start 10/11/16 at 15:00 Caspofungin/ Sodium Chloride (Cancidas/NS) 250 ml @ 250 mls/hr Q24H IVPB Last administered on 10/16/16 15:02; Admin Dose 250 MLS/HR; Start 10/12/16 at 15:00 Nystatin (Nystatin Susp) 5 ml QID PO Last administered on 10/17/16 12:54; Admin Dose 5 ML; Start 10/11/16 at 13:58 Furosemide (Lasix) 20 mg DAILY IV Last administered on 10/17/16 08:52; Admin Dose 20 MG; Start 10/14/16 at 09:00 Fentanyl (Duragesic 50 Mcg/Hr Patch) 1 patch Q72H TRANSDERM Last administered on 10/16/16 10:38; Admin Dose 1 PATCH; Start 10/16/16 at 11:00 Lorazepam (Ativan) 2 mg Q6H PO Last administered on 10/17/16 09:53; Admin Dose 2 MG; Start 10/16/16 at 10:00 Spironolactone (Aldactone) 25 mg DAILY@06 NGT Last administered on 10/17/16 05 :04; Admin Dose 25 MG; Start 10/16/16 at 12:30 ALBA RANDHAWA MD Oct 17, 2016 14:16
[2016-10-17] MEDS: CASPOFUNGIN 50 MG in SOD CHLORIDE 0.9% 250 ML IVPB SCH (15:04)
[2016-10-17] MEDS: ATORVASTATIN 10 MG TAB PO SCH (21:46)
[2016-10-17] MEDS: MONTELUKAST 10 MG TAB PO SCH (21:47)
[2016-10-17] MEDS: QUETIAPINE 25 MG TAB NGT PRN (21:47)
[2016-10-18] VITALS (23 sets, daily range): BP systolic 110–154; BP diastolic 64–88; PULSE 16–103; RESP 16–22
[2016-10-18] MEDS: LORAZEPAM 2 MG INJ IV PRN (00:53)
[2016-10-18] MEDS: ALBUTEROL 18 GM INHALER INH SCH ×4 (01:14→20:21)
[2016-10-18] MEDS: LORAZEPAM 1 MG TAB PO SCH ×4 (03:06→21:44)
[2016-10-18] MEDS: ACETAMINOPHEN 325 MG TAB PO PRN (03:07)
[2016-10-18] MEDS: SPIRONOLACTONE 25 MG TAB NGT SCH ×2 (06:11→10:01)
[2016-10-18] MEDS: AL HYDROX/MG HYDROX/SIMETH 30 ML CUP PO SCH ×4 (06:11→22:29)
--- NOTE | 2016-10-18 07:19 | PN ---
DATE: 10/17/2016 CARDIOLOGY FOLLOWUP SUBJECTIVE: Discussed with the staff. Rhythm strip was reviewed. The patient remains in sinus rhy thm. Status post PEG and trach on the vent, tolerating it well. MEDICATIONS: Reviewed as per medication reconciliation, personally reviewed. PHYSICAL EXAMINATION: VITAL SIGNS: Temperature 98.1, heart rate of 107, blood pressure ____/100, respiration rate of 24, saturating 94%. HEENT: Normocephalic, atraumatic. Obese gentleman. Pupils are equal. Dilated. ____ reactive. NECK: Status post tracheostomy, on the vent. CARDIOVASCULAR: Regular rate and rhythm ____. PULMONARY: With no wheezes anteriorly, mild rhonchi. GASTROINTESTINAL: Soft, nontender. EXTREMITIES: Positive diffuse lower extremity edema. NEUROLOGIC: Awake, responds appropriately. LABORATORY: Sodium 141, potassium 4.3, BUN of 32, creatinine 0.5, ____ 186. Chest x-ray done last night shows improved aeration of lung. Tracheostomy tube in satisfactory position, no significant c hange. ASSESSMENT AND PLAN: 1. Acute hypoxemic hypercapnic respiratory failure, status post tracheostomy, now vent dependent. 2. Fluid overload, congestive heart failure secondary to diastolic dysfunction, currently appears t o be euvolemic. 3. History of paroxysmal atrial fibrillation, currently remains in sinus rhythm. 4. Sepsis and pneumonia. 5. Encephalopathy 6. History of psych disorder/bipolar disorder. 7. Anemia. 8. Hypertension, ____control. 9. Dysphagia, status post PEG placement. RECOMMENDATIONS: 1. We will continue with supportive care. 2. Lasix will be continued at the current doses. Respiratory care will be continued and managed as per pulmonary team. Antibiotic as per ID's recommendation. We will monitor on telemetry. DVT pro phylaxis will be continued. Dictated By: BRENTON RIOS MD AV/NTS Conf#: [id number] DID#: [id number] CC: RAMY DOMINGUEZ DO; HAZEL SOTOMAYOR MD;*EndCC*
[2016-10-18] MEDS: L ACIDOPHIL/B LACTIS/B LONGUM CAPSULE PO SCH ×2 (10:01→21:00)
[2016-10-18] MEDS: ASPIRIN 81 MG TAB PO SCH (10:01)
[2016-10-18] MEDS: MULTIVITAMINS THERAPEUTIC TAB PO SCH (10:01)
[2016-10-18] MEDS: ARTIFICIAL TEARS 15 ML OPH BOTH EYES SCH ×3 (10:01→21:43)
[2016-10-18] MEDS: LANSOPRAZOLE 30 MG CAP NGT SCH ×2 (10:02→21:43)
[2016-10-18] MEDS: LORATADINE 10 MG TAB PO SCH (10:02)
[2016-10-18] MEDS: ASCORBIC ACID 500 MG TAB PO SCH (10:02)
[2016-10-18] MEDS: NYSTATIN SUSP 5 ML CUP PO SCH ×4 (10:03→21:44)
[2016-10-18] MEDS: AMIODARONE 200 MG TAB PO SCH (10:03)
[2016-10-18] MEDS: METOPROLOL 25 MG TAB PO SCH ×2 (10:03→21:44)
[2016-10-18] MEDS: METHYLPREDNISOLONE 125 MG INJ IV SCH (10:04)
[2016-10-18] MEDS: FUROSEMIDE 20 MG INJ IV SCH (10:04)
[2016-10-18] MEDS: BETAMETHASONE/CLOTRIMAZOLE 15 GM CR TOP SCH ×2 (10:05→21:45)
[2016-10-18] MEDS: NYSTATIN 30 GM POWDER BTL TOP SCH ×2 (10:06→21:45)
[2016-10-18] MEDS: ENOXAPARIN 40 MG/0.4 ML SYG SC SCH (10:25)
--- NOTE | 2016-10-18 11:29 | PN ---
DATE: 10/18/2016 SUBJECTIVE: The patient is stable. No events overnight. No fevers, chills, nausea, vomiting, no s hortness breath. OBJECTIVE: VITAL SIGNS: Blood pressure 150/64, respiration 18, pulse 79, temperature 99.0. HEENT: Head is normocephalic. NECK: Shows a trach. HEART: Regular rate. LUNGS: Show diminished breath sounds at the base. ABDOMEN: Soft, nontender to palpation. No rebound or guarding. EXTREMITIES: Negative for clubbing, cyanosis, edema. DERMATOLOGIC: No rashes. MUSCULOSKELETAL: No joint effusions. NEUROLOGIC: No change in exam. MEDICATIONS: The patient's medications have been reviewed. LABORATORY DATA: Shows a laboratory data had been reviewed, no further labs. ASSESSMENT AND PLAN: 1. Ventilator-dependent respiratory failure. The patient is status post trach, currently toleratin g well. Vent settings have been reviewed. ABG is reviewed. Continue to monitor. Follow up with p ulmonary. 2. Acute diastolic heart failure, clinically improving. Continue current diuretic regimen. 3. Sepsis secondary to pneumonia. The patient has completed an antibiotic course, continue. 4. Leukocytosis secondary to sepsis. Steroids, improving. Continue to monitor. 5. Acute encephalopathy, etiology secondary to toxic metabolic hypercapnia. Continue to monitor. 6. History of bipolar disorder. Continue Seroquel and Ativan p.r.n. 7. Anemia. Continue to monitor hemoglobin and hematocrit levels. 8. History of coronary artery disease. Continue medical management. 9. Azotemia. Secondary to diuretic therapy, hypercatabolic state. Continue to monitor. 10. Hypertension. Continue current blood pressure regimen. 11. Dysphagia status post percutaneous endoscopic gastrostomy. Continue tube feeding. 12. GI and deep vein thrombosis prophylaxis. Continue proton pump inhibitor and Lovenox. DISPOSITION: We will place an evaluation for [facility]. Dictated By: RAMY PERRY/ALYSON Conf#: [id number] DID#: [id number]
--- NOTE | 2016-10-18 11:40 | CONS ---
Date/Time of Note Date/Time of Note DATE: 10/18/16 TIME: 11:39 Consultation Date/Type/Reason Admit Date/Time Sep 29, 2016 at 09:25 Type of Consultation: pulmonary 24 HR Interval Summary Free Text/Dictation dictated. dc solumedrol, start prednisone 30 mg/ daily.taper later. Exam/Review of Systems Vital Signs Vitals Vital Signs Date Time Temp Pulse Resp B/P Pulse Ox O2 Delivery O2 Flow Rate FiO2 10/18/16 09:10 89 16 97 30 10/18/16 07:48 99.0 115/64 10/17/16 18:00 Mechanical Ventilator Intake and Output 10/17/16 10/17/16 10/18/16 15:00 23:00 07:00 Intake Total 660 ml 460 ml 800 ml Output Total 880 ml 180 ml 500 ml Balance -220 ml 280 ml 300 ml Results Result Diagram: 10/16/16 0430 10/17/16 0531 Medications Medications Current Medications Acetaminophen (Tylenol Tab) 650 mg Q4H PRN PO MILD PAIN LEVEL 1-3 Last administered on 10/18/16 03:07; Admin Dose 650 MG; Start 09/29/16 at 11:00 Acetaminophen (Tylenol Tab) 1,000 mg Q4H PRN PO PAIN LEVEL 4-6/10; Start at 11:00 Amiodarone HCl (Cordarone) 200 mg DAILY PO Last administered on 10/18/16 10:03 ; Admin Dose 200 MG; Start 09/30/16 at 09:00 Ascorbic Acid (Vitamin C) 500 mg DAILY PO Last administered on 10/18/16 10:02; Admin Dose 500 MG; Start 09/30/16 at 09:00 Aspirin (Aspirin) 81 mg DAILY PO Last administered on 10/18/16 10:01; Admin Dose 81 MG; Start 09/30/16 at 09:00 Atorvastatin Calcium (Lipitor) 5 mg QHS PO Last administered on 10/17/16 21:46 ; Admin Dose 5 MG; Start 09/29/16 at 21:00 Bisacodyl (Dulcolax Supp) 10 mg DAILY PRN [place] CONSTIPATION; Start 09/29/16 at 11 :00 Docusate Sodium (Colace) 200 mg QHS PRN PO CONSTIPATION; Start 09/29/16 at 11: 00 Loratadine (Claritin) 10 mg DAILY PO Last administered on 10/18/16 10:02; Admin Dose 10 MG; Start 09/30/16 at 09:00 Al Hydrox/Mg Hydrox/Simethicone (Mag-Al Plus) 30 ml Q6H PO Last administered on 10/18/16 06:11; Admin Dose 30 ML; Start 09/29/16 at 11:00 Magnesium Hydroxide (Milk Of Mag) 30 ml DAILY PRN PO CONSTIPATION Last administered on 10/11/16 20:35; Admin Dose 30 ML; Start 09/29/16 at 11:00 Metoprolol Tartrate (Lopressor) 25 mg BID PO Last administered on 10/18/16 10: 03; Admin Dose 25 MG; Start 09/29/16 at 21:00 Montelukast Sodium (Singulair) 10 mg QHS PO Last administered on 10/17/16 21: 47; Admin Dose 10 MG; Start 09/29/16 at 21:00 Multivitamins Therapeutic (Theragran) 1 tab DAILY PO Last administered on 10:01; Admin Dose 1 TAB; Start 09/30/16 at 09:00 Sodium Biphosphate/ Sodium Phosphate (Fleet Enema) 118 ml prn PRN [place] CONSTIPATION; Start 09/29/16 at 11:00 Eye Lubricant (Artificial Tears Oph) 1 drop TID BOTH EYES Last administered on 10/18/16 10:01; Admin Dose 1 DROP; Start 09/29/16 at 13:00 Lactobacillus Acidophilus (Florajen3 Capsule) 1 each BID PO Last administered on 10/18/16 10:01; Admin Dose 1 EACH; Start 09/29/16 at 21:00 Enoxaparin Sodium (Lovenox) 40 mg DAILY SC Last administered on 10/18/16 10:25 ; Admin Dose 40 MG; Start 09/30/16 at 09:00 Lansoprazole (Prevacid) 30 mg BID NGT Last administered on 10/18/16 10:02; Admin Dose 30 MG; Start 09/30/16 at 21:00 Lorazepam (Ativan) 0.5 mg Q8H PRN IV anxiety Last administered on 10/18/16 00: 53; Admin Dose 0.5 MG; Start 10/09/16 at 08:00 Methylprednisolone Sodium Succinate (Solu-Medrol) 60 mg BID IV Last administered on 10/18/16 10:04; Admin Dose 60 MG; Start 10/10/16 at 21:00 Quetiapine Fumarate (Seroquel) 25 mg QHS PRN NGT anxiety Last administered on 21:47; Admin Dose 25 MG; Start 10/11/16 at 21:00 Sodium Biphosphate/ Sodium Phosphate (Fleet Enema) 133 ml DAILY PRN [place] CONSTIPATION; Start 10/11/16 at 08:30 Betamethasone/ Clotrimazole (Lotrisone Cr) 1 applic BID TOP Last administered on 10/18/16 10:05; Admin Dose 1 APPLIC; Start 10/11/16 at 14:00 Nystatin 1 applic 1 applic BID TOP Last administered on 10/18/16 10:06; Admin Dose 1 APPLIC; Start 10/11/16 at 15:00 Caspofungin/ Sodium Chloride (Cancidas/NS) 250 ml @ 250 mls/hr Q24H IVPB Last administered on 10/17/16 15:04; Admin Dose 250 MLS/HR; Start 10/12/16 at 15:00 Nystatin (Nystatin Susp) 5 ml QID PO Last administered on 10/18/16 10:03; Admin Dose 5 ML; Start 10/11/16 at 13:58 Furosemide (Lasix) 20 mg DAILY IV Last administered on 10/18/16 10:04; Admin Dose 20 MG; Start 10/14/16 at 09:00 Fentanyl (Duragesic 50 Mcg/Hr Patch) 1 patch Q72H TRANSDERM Last administered on 10/16/16 10:38; Admin Dose 1 PATCH; Start 10/16/16 at 11:00 Lorazepam (Ativan) 2 mg Q6H PO Last administered on 10/18/16 10:01; Admin Dose 2 MG; Start 10/16/16 at 10:00 Spironolactone (Aldactone) 25 mg DAILY@06 NGT Last administered on 10/18/16 10: 01; Admin Dose 25 MG; Start 10/16/16 at 12:30 SHARON LLAMAS October 18, 2016 11:40
[2016-10-18] MEDS ORDERED: morphine 10 MG INJ IV PRN (12:00)
[2016-10-18] MEDS: morphine 2 MG INJ IV PRN ×2 (12:30→22:15)
--- NOTE | 2016-10-18 15:00 | PN ---
DATE: 10/18/2016 SUBJECTIVE: Mr. Tucker's condition is stable. The patient has been transferred out of ICU to telemet ry unit. He remains awake, alert, and remains ventilator dependent. Has remained hemodynamically s table. PHYSICAL EXAMINATION GENERAL: Middle-aged male, on ventilator via tracheostomy, awake, alert, currently in no distress. VITAL SIGNS: Temperature is 97.5 degrees Fahrenheit, pulse of 76 per minute, respiratory rate is 18 per minute, heart rate 98 per minute, blood pressure is 115/64, O2 sat is 97% on 30% FiO2. Urine o utput is adequate. NECK: Supple. JVD difficult to see because of short neck. Tracheostomy in place. Pharynx is ayah r. Fair dentition. Mid-size pupils, reactive to light. CHEST: Clear to auscultation. HEART: S1, S2 audible, no murmurs, regular rhythm. ABDOMEN: Soft, protuberant. G-tube in place. Bowel sounds audible. EXTREMITIES: No peripheral edema. Pulses 1+ bilaterally. NEUROLOGIC: No focal deficit. VENTILATOR SETTINGS: AC of 16, tidal volume 500, PEEP of 5, 30% FiO2. MEDICATIONS: Reviewed. The patient currently is on: 1. Tube feeding. 2. Caspofungin 50 mg q.____ hours. 3. DuoNeb q.6 hours. 4. Amiodarone 200 mg daily. 5. Aspirin 81 mg a day. 6. Lipitor 5 mg a day. 7. Lovenox 40 mg a day. 8. Furosemide 20 mg IV daily. 9. Prevacid 30 mg b.i.d. 10. ____ 10 mg daily. 11. Solu-Medrol 60 mg q.12 hours. 12. Metoprolol 25 mg b.i.d. 13. Singulair 10 mg a day. 14. Seroquel 25 mg ____ daily. 15. Aldactone 25 mg daily. ASSESSMENT AND PLAN: 1. Patient admitted for respiratory failure due to chronic obstructive pulmonary disease exacerbati on status post tracheostomy and G-tube placement. 2. Hypertension. 3. History of cardiac arrhythmia. 4. Likely underlying sleep apnea. 5. Obesity. RECOMMENDATIONS: Continue current treatment. Discontinue Solu-Medrol and start prednisone 20 mg da constance with further tapering down as dictated by clinical status. The patient will need to be transfer red to [facility] facility. Prognosis remains guarded. Dictated By: SHARON DAVILA/ALYSON Conf#: [id number] DID#: [id number] CC: RAMY DOMINGUEZ DO;*EndCC*
--- NOTE | 2016-10-18 15:20 | PN ---
DATE: 10/18/2016 SUBJECTIVE: No acute changes. The patient is awake, lying comfortably in bed. No fevers. No labs. INDWELLINGS: Trach, PEG, Estrella, PICC line placed on 10/06/2016. ANTIMICROBIALS: Cancidas day #7. PHYSICAL EXAMINATION: GENERAL: This is a morbidly obese, middle-aged white man who is awake, in no distress. HEENT: Head atraumatic, normocephalic. Sclerae anicteric. Buccal mucosa dry. NECK: Obese. CHEST: Rise symmetrical. Breath sounds clear, diminished to bases. HEART: S1, S2. ABDOMEN: Soft. Bowel tones present. EXTREMITIES: Without cyanosis. ASSESSMENT: 1. Resolving pneumonia. 2. Acute on chronic respiratory failure. 3. Status post chronic obstructive pulmonary disease exacerbation. 4. Morbid obesity. 5. History of psychiatric disease, bipolar disorder. PLAN: The patient remains stable pending Carlos evaluation. Steroids were tapered down to oral pred nisone. We will complete Cancidas for a couple more days. Dictated By: NANCY MOREL CREDIT REVIEW ANALYST for ARVIN VERDUZCO/ALYSON Conf#: [id number] DID#: [id number]
--- NOTE | 2016-10-18 16:11 | PN ---
Date/Time of Note Date/Time of Note DATE: 10/18/16 TIME: 16:11 Assessment/Plan Lines/Catheters IV Catheter Type (from Nrsg): PICC Line Estrella in Place (from Nrsg): Yes Assessment/Plan Chief Complaint/Hosp Course SP Tracheostomy will continue vent support trach care Problems: Subjective 24 Hr Interval Summary Constitutional: improved Pain Control: mild Exam/Review of Systems Vital Signs Vitals Vital Signs Date Time Temp Pulse Resp B/P Pulse Ox O2 Delivery O2 Flow Rate FiO2 10/18/16 15:32 88 20 97 30 10/18/16 12:05 98.0 133/74 10/17/16 18:00 Mechanical Ventilator Intake and Output 10/17/16 10/17/16 10/18/16 15:00 23:00 07:00 Intake Total 660 ml 460 ml 800 ml Output Total 880 ml 180 ml 500 ml Balance -220 ml 280 ml 300 ml Exam ENMT: mucosa pink and moist, nl external ears & nose, nl lips & teeth, nl nasal mucosa & septum Neck: non-tender, supple Respiratory: clear to auscultation, normal air movement Cardiovascular: nl pulses, regular rate and rhythm Gastrointestinal: nl liver, spleen, non-tender, soft Results Result Diagram: 10/16/16 0430 10/17/16 0531 ABLA RANDHAWA MD October 18, 2016 16:11
[2016-10-18] MEDS: CASPOFUNGIN 50 MG in SOD CHLORIDE 0.9% 250 ML IVPB SCH (16:45)
--- NOTE | 2016-10-18 18:15 | CONS ---
Date/Time of Note Date/Time of Note DATE: 10/18/16 TIME: 18:15 Assessment/Plan Assessment/Plan Additional Assessment/Plan IMPRESSION: 1. Respiratory failure. 2. Bipolar disorder. 3. Atrial fibrillation. 4. Dysphagia. Status post PEG, patient is tolerating feeding, G-tube site is very clean 5. Obesity. 6. Chronic obstructive pulmonary disease. 7. Candidiasis. Plan Continue present care Continue feeding Abdominal binder all the time No dressing around the G-tube site Consultation Date/Type/Reason Admit Date/Time Sep 29, 2016 at 09:25 Type of Consultation: pulmonary 24 HR Interval Summary Constitutional: improved, no complaints Exam/Review of Systems Vital Signs Vitals Vital Signs Date Time Temp Pulse Resp B/P Pulse Ox O2 Delivery O2 Flow Rate FiO2 10/18/16 17:42 85 16 98 30 10/18/16 16:51 98.0 135/78 10/17/16 18:00 Mechanical Ventilator Intake and Output 10/17/16 10/17/16 10/18/16 14:59 22:59 06:59 Intake Total 660 ml 520 ml 800 ml Output Total 925 ml 215 ml 500 ml Balance -265 ml 305 ml 300 ml Exam Constitutional: alert, oriented, well developed Psych: nl mood/affect, no complaints Head: atraumatic, normocephalic Eyes: EOMI, PERRL, nl conjunctiva, nl lids, nl sclera ENMT: nl external ears & nose, nl lips & teeth, nl nasal mucosa & septum Neck: non-tender, supple Respiratory: clear to auscultation, normal air movement Cardiovascular: nl pulses, regular rate and rhythm Gastrointestinal: nl liver, spleen, non-tender, soft Musculoskeletal: nl extremities to inspection, nl gait and stance Extremities: normal pulses Neurological: MANAGER BENEFIT II-XII intact, nl mental status, nl speech, nl strength Skin: nl turgor, No rash or lesions Lymph: nl lymph nodes Results Result Diagram: 10/16/16 0430 10/17/16 0531 Medications Medications Current Medications Acetaminophen (Tylenol Tab) 650 mg Q4H PRN PO MILD PAIN LEVEL 1-3 Last administered on 10/18/16t 03:07; Admin Dose 650 MG; Start 09/29/16 at 11:00 Acetaminophen (Tylenol Tab) 1,000 mg Q4H PRN PO PAIN LEVEL 4-6/10; Start at 11:00 Amiodarone HCl (Cordarone) 200 mg DAILY PO Last administered on 10/18/16 10:03 ; Admin Dose 200 MG; Start 09/30/16 at 09:00 Ascorbic Acid (Vitamin C) 500 mg DAILY PO Last administered on 10/18/16 10:02; Admin Dose 500 MG; Start 09/30/16 at 09:00 Aspirin (Aspirin) 81 mg DAILY PO Last administered on 10/18/16 10:01; Admin Dose 81 MG; Start 09/30/16 at 09:00 Atorvastatin Calcium (Lipitor) 5 mg QHS PO Last administered on 10/17/16 21:46 ; Admin Dose 5 MG; Start 09/29/16 at 21:00 Bisacodyl (Dulcolax Supp) 10 mg DAILY PRN [place] CONSTIPATION; Start 09/29/16 at 11 :00 Docusate Sodium (Colace) 200 mg QHS PRN PO CONSTIPATION; Start 09/29/16 at 11: 00 Loratadine (Claritin) 10 mg DAILY PO Last administered on 10/18/16 10:02; Admin Dose 10 MG; Start 09/30/16 at 09:00 Al Hydrox/Mg Hydrox/Simethicone (Mag-Al Plus) 30 ml Q6H PO Last administered on 10/18/16 16:45; Admin Dose 30 ML; Start 09/29/16 at 11:00 Magnesium Hydroxide (Milk Of Mag) 30 ml DAILY PRN PO CONSTIPATION Last administered on 10/11/16 20:35; Admin Dose 30 ML; Start 09/29/16 at 11:00 Metoprolol Tartrate (Lopressor) 25 mg BID PO Last administered on 10/18/16 10: 03; Admin Dose 25 MG; Start 09/29/16 at 21:00 Montelukast Sodium (Singulair) 10 mg QHS PO Last administered on 10/17/16 21: 47; Admin Dose 10 MG; Start 09/29/16 at 21:00 Multivitamins Therapeutic (Theragran) 1 tab DAILY PO Last administered on 10:01; Admin Dose 1 TAB; Start 09/30/16 at 09:00 Sodium Biphosphate/ Sodium Phosphate (Fleet Enema) 118 ml prn PRN [place] CONSTIPATION; Start 09/29/16 at 11:00 Eye Lubricant (Artificial Tears Oph) 1 drop TID BOTH EYES Last administered on 10/18/16 12:31; Admin Dose 1 DROP; Start 09/29/16 at 13:00 Lactobacillus Acidophilus (Florajen3 Capsule) 1 each BID PO Last administered on 10/18/16 10:01; Admin Dose 1 EACH; Start 09/29/16 at 21:00 Enoxaparin Sodium (Lovenox) 40 mg DAILY SC Last administered on 10/18/16 10:25 ; Admin Dose 40 MG; Start 09/30/16 at 09:00 Lansoprazole (Prevacid) 30 mg BID NGT Last administered on 10/18/16 10:02; Admin Dose 30 MG; Start 09/30/16 at 21:00 Lorazepam (Ativan) 0.5 mg Q8H PRN IV anxiety Last administered on 10/18/16 00: 53; Admin Dose 0.5 MG; Start 10/09/16 at 08:00 Quetiapine Fumarate (Seroquel) 25 mg QHS PRN NGT anxiety Last administered on 21:47; Admin Dose 25 MG; Start 10/11/16 at 21:00 Sodium Biphosphate/ Sodium Phosphate (Fleet Enema) 133 ml DAILY PRN [place] CONSTIPATION; Start 10/11/16 at 08:30 Betamethasone/ Clotrimazole (Lotrisone Cr) 1 applic BID TOP Last administered on 10/18/16 10:05; Admin Dose 1 APPLIC; Start 10/11/16 at 14:00 Nystatin 1 applic 1 applic BID TOP Last administered on 10/18/16 10:06; Admin Dose 1 APPLIC; Start 10/11/16 at 15:00 Caspofungin/ Sodium Chloride (Cancidas/NS) 250 ml @ 250 mls/hr Q24H IVPB Last administered on 10/18/16 16:45; Admin Dose 250 MLS/HR; Start 10/12/16 at 15:00 Nystatin (Nystatin Susp) 5 ml QID PO Last administered on 10/18/16 16:45; Admin Dose 5 ML; Start 10/11/16 at 13:58 Furosemide (Lasix) 20 mg DAILY IV Last administered on 10/18/16 10:04; Admin Dose 20 MG; Start 10/14/16 at 09:00 Fentanyl (Duragesic 50 Mcg/Hr Patch) 1 patch Q72H TRANSDERM Last administered on 10/16/16 10:38; Admin Dose 1 PATCH; Start 10/16/16 at 11:00 Lorazepam (Ativan) 2 mg Q6H PO Last administered on 10/18/16 16:45; Admin Dose 2 MG; Start 10/16/16 at 10:00 Spironolactone (Aldactone) 25 mg DAILY@06 NGT Last administered on 10/18/16 10: 01; Admin Dose 25 MG; Start 10/16/16 at 12:30 Prednisone (Prednisone) 30 mg DAILY GTB ; Start 10/19/16 at 09:00 Acetaminophen/ Hydrocodone Bitart ([place] (5/325)) 1 tab Q6H PRN PO PAIN LEVEL 4 -7; Start 10/18/16 at 12:00 Morphine Sulfate (morphine) 1 mg Q6H PRN IV PAIN LEVEL 7-10 Last administered on 10/18/16 12:30; Admin Dose 1 MG; Start 10/18/16 at 12:30 JULIA DE GUZMAN MD October 18, 2016 18:15
--- NOTE | 2016-10-18 19:36 | PN ---
DATE: 10/18/2016 CARDIOLOGY FOLLOWUP SUBJECTIVE: Discussed with the staff. Rhythm strip was reviewed. The patient remains in sinus rhy thm. He was transferred out of ICU. No reported chest pain or pressure. Had mild abdominal pain. MEDICATIONS: Reviewed as per medication reconciliation, personally reviewed. PHYSICAL EXAMINATION: VITAL SIGNS: Temperature 98, heart rate of 88, blood pressure 133/74, respiration rate of 20, satur ating 97%. GENERAL: Obese gentleman. HEENT: Normocephalic, atraumatic. Pupils are equal. CARDIOVASCULAR: Regular rate and rhythm, systolic murmur. PULMONARY: With no wheezes anteriorly. GASTROINTESTINAL: Obese, soft. EXTREMITIES: Positive lower extremity edema. NEUROLOGIC: Awake, responds appropriately. PSYCHIATRIC: Appears anxious, but overall stable. LABORATORY: Not done today. ASSESSMENT AND PLAN: 1. Hypoxemic hypercapnic respiratory failure, status post tracheostomy, now vent-dependent. 2. Fluid overload, congestive heart failure, currently appears to be stable. 3. History of paroxysmal atrial fibrillation, currently in sinus rhythm. 4. Status post sepsis and pneumonia. 5. Chronic obstructive pulmonary disease. 6. Psychiatric disorder, bipolar disorder. 7. History of anemia 8. Hypertension, under good control. 9. Dysphagia, status post percutaneous endoscopic gastrostomy placement. RECOMMENDATIONS: We will continue with the current cardiac care. Respiratory care will be continue d. Electrolytes will be checked intermittently and adjust accordingly. Monitor on telemetry and re spiratory care as per Dr. Russo and associates. Dictated By: BRENTON SAVAGE/ALYSON Conf#: [id number] DID#: [id number] CC: RAMY DOMINGUEZ DO;*EndCC*
[2016-10-18] MEDS: ATORVASTATIN 10 MG TAB PO SCH (21:43)
[2016-10-18] MEDS: MONTELUKAST 10 MG TAB PO SCH (21:43)
[2016-10-19] VITALS (24 sets, daily range): BP systolic 114–138; BP diastolic 62–81; PULSE 80–103; RESP 16–22
[2016-10-19] MEDS: ALBUTEROL 18 GM INHALER INH SCH ×4 (02:48→19:25)
[2016-10-19] MEDS: LORAZEPAM 1 MG TAB PO SCH ×4 (03:43→21:06)
[2016-10-19] MEDS: AL HYDROX/MG HYDROX/SIMETH 30 ML CUP PO SCH ×4 (05:19→22:39)
[2016-10-19] MEDS: SPIRONOLACTONE 25 MG TAB NGT SCH (05:21)
[2016-10-19 07:06] LABS: ADD SCAN DIFF NO
[2016-10-19 07:16] LABS: ABNORMAL IP MESSAGE 1; BASOPHILS % 0.1 % (0.0-2.0); HEMATOCRIT 37.4 % (42.0-52.0); HEMOGLOBIN 11.7 g/dl (14.0-18.0); LYMPHOCYTES # 0.4 10^3/ul (0.8-2.9); LYMPHOCYTES % 1.6 % (15.0-51.0); MEAN CORPUSCULAR HEMOGLOBIN 30.8 pg (29.0-33.0); MEAN CORPUSCULAR HGB CONC 31.3 g/dl (32.0-37.0); MEAN CORPUSCULAR VOLUME 98.4 fl (82.0-101.0); MEAN PLATELET VOLUME 10.5 fl (7.4-10.4); MONOCYTE # 2.5 10^3/ul (0.3-0.9); MONOCYTES % 10.5 % (0.0-11.0); NEUTROPHIL # 20.8 10^3/ul (1.6-7.5); PLATELET COUNT 175 10^3/UL (140-415); RED CELL DISTRIBUTION WIDTH 13.7 % (11.5-14.5); WHITE BLOOD COUNT 23.9 10^3/ul (4.8-10.8)
[2016-10-19 07:36] LABS: CALCIUM 8.7 mg/dl (8.4-10.2); CREATININE 0.51 mg/dl (0.61-1.24); MAGNESIUM 2.6 mg/dl (1.7-2.5); PHOSPHORUS 2.9 mg/dl (2.5-4.9); POTASSIUM 4.4 mmol/L (3.5-5.1)
[2016-10-19] MEDS: predniSONE 10 MG TAB GTB SCH (09:13)
[2016-10-19] MEDS: NYSTATIN SUSP 5 ML CUP PO SCH ×4 (09:13→21:04)
[2016-10-19] MEDS: BETAMETHASONE/CLOTRIMAZOLE 15 GM CR TOP SCH ×2 (09:13→21:00)
[2016-10-19] MEDS: L ACIDOPHIL/B LACTIS/B LONGUM CAPSULE PO SCH ×2 (09:13→21:00)
[2016-10-19] MEDS: ASPIRIN 81 MG TAB PO SCH (09:15)
[2016-10-19] MEDS: FUROSEMIDE 20 MG INJ IV SCH (09:15)
[2016-10-19] MEDS: AMIODARONE 200 MG TAB PO SCH (09:17)
[2016-10-19] MEDS: ASCORBIC ACID 500 MG TAB PO SCH (09:17)
[2016-10-19] MEDS: ARTIFICIAL TEARS 15 ML OPH BOTH EYES SCH ×3 (09:19→21:22)
[2016-10-19] MEDS: MULTIVITAMINS THERAPEUTIC TAB PO SCH (09:19)
[2016-10-19] MEDS: METOPROLOL 25 MG TAB PO SCH ×2 (09:19→21:05)
[2016-10-19] MEDS: LORATADINE 10 MG TAB PO SCH (09:19)
[2016-10-19] MEDS: LANSOPRAZOLE 30 MG CAP NGT SCH ×2 (09:20→21:05)
[2016-10-19] MEDS: ENOXAPARIN 40 MG/0.4 ML SYG SC SCH (09:43)
[2016-10-19] MEDS: NYSTATIN 30 GM POWDER BTL TOP SCH ×2 (09:44→21:06)
--- NOTE | 2016-10-19 10:05 | CONS ---
Date/Time of Note Date/Time of Note DATE: 10/19/16 TIME: 10:02 Assessment/Plan Assessment/Plan Additional Assessment/Plan Additional Assessment/Plan IMPRESSION: 1. Respiratory failure. 2. Bipolar disorder. 3. Atrial fibrillation. 4. Dysphagia. Status post PEG, patient is tolerating feeding, G-tube site is very clean 5. Obesity. 6. Chronic obstructive pulmonary disease. 7. Candidiasis. Plan Continue present care Continue feeding Abdominal binder all the time No dressing around the G-tube site Educated the staff nurse to anchor the stalk of the G-tube. G-tube was almost pulling out the internal bumper. It was not properly anchored by the staff nurse. Consultation Date/Type/Reason Admit Date/Time Sep 29, 2016 at 09:25 Type of Consultation: pulmonary 24 HR Interval Summary Free Text/Dictation Patient denies of abdominal pain, no nausea no vomiting Constitutional: no complaints Exam/Review of Systems Vital Signs Vitals Vital Signs Date Time Temp Pulse Resp B/P Pulse Ox O2 Delivery O2 Flow Rate FiO2 10/19/16 09:40 94 19 97 30 10/19/16 07:58 99.3 125/81 10/17/16 18:00 Mechanical Ventilator Intake and Output 10/18/16 10/18/16 10/19/16 15:00 23:00 07:00 Intake Total 1160 ml 840 ml Output Total 1300 ml 900 ml Balance -140 ml -60 ml Exam Constitutional: alert, oriented, well developed Psych: nl mood/affect, no complaints Head: atraumatic, normocephalic Eyes: EOMI, PERRL, nl conjunctiva, nl lids, nl sclera ENMT: nl external ears & nose, nl lips & teeth, nl nasal mucosa & septum Neck: non-tender, supple Respiratory: clear to auscultation, normal air movement Cardiovascular: nl pulses, regular rate and rhythm Gastrointestinal: nl liver, spleen, non-tender, soft Musculoskeletal: nl extremities to inspection, nl gait and stance Extremities: normal pulses Neurological: BSW II-XII intact, nl mental status, nl speech, nl strength Skin: nl turgor, No rash or lesions Lymph: nl lymph nodes Results Result Diagram: 10/19/16 0650 10/19/16 0650 Results 24 hrs Laboratory Tests Test 10/19/16 06:50 White Blood Count 23.9 #H Red Blood Count 3.80 L Hemoglobin 11.7 L Hematocrit 37.4 L Mean Corpuscular Volume 98.4 Mean Corpuscular Hemoglobin 30.8 Mean Corpuscular Hemoglobin Concent 31.3 L Red Cell Distribution Width 13.7 Platelet Count 175 # Mean Platelet Volume 10.5 H Neutrophils % 87.0 H Lymphocytes % 1.6 L Monocytes % 10.5 Eosinophils % 0.0 Basophils % 0.1 Nucleated Red Blood Cells % 0.0 Neutrophils # 20.8 H Lymphocytes # 0.4 L Monocytes # 2.5 H Eosinophils # 0.0 Basophils # 0.0 Nucleated Red Blood Cells # 0.0 Sodium Level 138 Potassium Level 4.4 Chloride Level 96 L Carbon Dioxide Level 39 H Anion Gap 7 L Blood Urea Nitrogen 28 H Creatinine 0.51 L Glucose Level 135 Calcium Level 8.7 Phosphorus Level 2.9 Magnesium Level 2.6 H Medications Medications Current Medications Acetaminophen (Tylenol Tab) 650 mg Q4H PRN PO MILD PAIN LEVEL 1-3 Last administered on 10/18/16 03:07; Admin Dose 650 MG; Start 09/29/16 at 11:00 Acetaminophen (Tylenol Tab) 1,000 mg Q4H PRN PO PAIN LEVEL 4-6/10 Last administered on 10/19/16 09:43; Admin Dose 1,000 MG; Start 09/29/16 at 11:00 Amiodarone HCl (Cordarone) 200 mg DAILY PO Last administered on 10/19/16 09:17 ; Admin Dose 200 MG; Start 09/30/16 at 09:00 Ascorbic Acid (Vitamin C) 500 mg DAILY PO Last administered on 10/19/16 09:17; Admin Dose 500 MG; Start 09/30/16 at 09:00 Aspirin (Aspirin) 81 mg DAILY PO Last administered on 10/19/16 09:15; Admin Dose 81 MG; Start 09/30/16 at 09:00 Atorvastatin Calcium (Lipitor) 5 mg QHS PO Last administered on 10/18/16 21:43 ; Admin Dose 5 MG; Start 09/29/16 at 21:00 Bisacodyl (Dulcolax Supp) 10 mg DAILY PRN [place] CONSTIPATION; Start 09/29/16 at 11 :00 Docusate Sodium (Colace) 200 mg QHS PRN PO CONSTIPATION; Start 09/29/16 at 11: 00 Loratadine (Claritin) 10 mg DAILY PO Last administered on 10/19/16 09:19; Admin Dose 10 MG; Start 09/30/16 at 09:00 Al Hydrox/Mg Hydrox/Simethicone (Mag-Al Plus) 30 ml Q6H PO Last administered on 10/19/16 05:19; Admin Dose 30 ML; Start 09/29/16 at 11:00 Magnesium Hydroxide (Milk Of Mag) 30 ml DAILY PRN PO CONSTIPATION Last administered on 10/11/16 20:35; Admin Dose 30 ML; Start 09/29/16 at 11:00 Metoprolol Tartrate (Lopressor) 25 mg BID PO Last administered on 10/19/16 09: 19; Admin Dose 25 MG; Start 09/29/16 at 21:00 Montelukast Sodium (Singulair) 10 mg QHS PO Last administered on 10/18/16 21:43 ; Admin Dose 10 MG; Start 09/29/16 at 21:00 Multivitamins Therapeutic (Theragran) 1 tab DAILY PO Last administered on 09:19; Admin Dose 1 TAB; Start 09/30/16 at 09:00 Sodium Biphosphate/ Sodium Phosphate (Fleet Enema) 118 ml prn PRN [place] CONSTIPATION; Start 09/29/16 at 11:00 Eye Lubricant (Artificial Tears Oph) 1 drop TID BOTH EYES Last administered on 10/19/16 09:19; Admin Dose 1 DROP; Start 09/29/16 at 13:00 Lactobacillus Acidophilus (Florajen3 Capsule) 1 each BID PO Last administered on 10/19/16 09:13; Admin Dose 1 EACH; Start 09/29/16 at 21:00 Enoxaparin Sodium (Lovenox) 40 mg DAILY SC Last administered on 10/19/16 09:43 ; Admin Dose 40 MG; Start 09/30/16 at 09:00 Lansoprazole (Prevacid) 30 mg BID NGT Last administered on 10/19/16 09:20; Admin Dose 30 MG; Start 09/30/16 at 21:00 Lorazepam (Ativan) 0.5 mg Q8H PRN IV anxiety Last administered on 10/18/16 00: 53; Admin Dose 0.5 MG; Start 10/09/16 at 08:00 Quetiapine Fumarate (Seroquel) 25 mg QHS PRN NGT anxiety Last administered on 21:47; Admin Dose 25 MG; Start 10/11/16 at 21:00 Sodium Biphosphate/ Sodium Phosphate (Fleet Enema) 133 ml DAILY PRN [place] CONSTIPATION; Start 10/11/16 at 08:30 Betamethasone/ Clotrimazole (Lotrisone Cr) 1 applic BID TOP Last administered on 10/19/16 09:13; Admin Dose 1 APPLIC; Start 10/11/16 at 14:00 Nystatin 1 applic 1 applic BID TOP Last administered on 10/19/16 09:44; Admin Dose 1 APPLIC; Start 10/11/16 at 15:00 Caspofungin/ Sodium Chloride (Cancidas/NS) 250 ml @ 250 mls/hr Q24H IVPB Last administered on 10/18/16 16:45; Admin Dose 250 MLS/HR; Start 10/12/16 at 15:00 Nystatin (Nystatin Susp) 5 ml QID PO Last administered on 10/19/16 09:13; Admin Dose 5 ML; Start 10/11/16 at 13:58 Furosemide (Lasix) 20 mg DAILY IV Last administered on 10/19/16 09:15; Admin Dose 20 MG; Start 10/14/16 at 09:00 Fentanyl (Duragesic 50 Mcg/Hr Patch) 1 patch Q72H TRANSDERM Last administered on 10/16/16 10:38; Admin Dose 1 PATCH; Start 10/16/16 at 11:00 Lorazepam (Ativan) 2 mg Q6H PO Last administered on 10/19/16 03:43; Admin Dose 2 MG; Start 10/16/16 at 10:00 Spironolactone (Aldactone) 25 mg DAILY@06 NGT Last administered on 10/19/16 05: 21; Admin Dose 25 MG; Start 10/16/16 at 12:30 Prednisone (Prednisone) 30 mg DAILY GTB Last administered on 10/19/16 09:13; Admin Dose 30 MG; Start 10/19/16 at 09:00 Acetaminophen/ Hydrocodone Bitart ([place] (5/325)) 1 tab Q6H PRN PO PAIN LEVEL 4 -7; Start 10/18/16 at 12:00 Morphine Sulfate (morphine) 1 mg Q6H PRN IV PAIN LEVEL 7-10 Last administered on 10/18/16t 22:15; Admin Dose 1 MG; Start 10/18/16 at 12:30 Valproic Acid (Depakene) 250 mg BID PO ; Start 10/19/16 at 21:00 JULIA DE GUZMAN MD October 19, 2016 10:05
--- NOTE | 2016-10-19 10:52 | PN ---
DATE: 10/19/2016 SUBJECTIVE: The patient is stable, no acute events overnight. No hemoptysis, hematemesis or hemato chezia. OBJECTIVE: VITAL SIGNS: Blood pressure 125/81, respiration 18, pulse ____, temperature 99.3. I's and O's reviewed. HEENT: Head is normocephalic. NECK: Shows trach. HEART: Regular rate. LUNGS: Show diminished breath sounds at base. ABDOMEN: Soft, nontender to palpation. No rebound or guarding. EXTREMITIES: Negative for clubbing, cyanosis. Trace edema. DERMATOLOGIC: No rashes. MUSCULOSKELETAL: No joint effusions. NEUROLOGIC: No change in exam. MEDICATIONS: The patient's medications have been reviewed. LABORATORY DATA: Sodium 138, potassium 4.4, chloride 96, BUN 28, creatinine 0.51, magnesium 2.6. W sabrina count 22.9, hemoglobin 9.7, hematocrit 37.4, platelet count is 175. ASSESSMENT AND PLAN: 1. Ventilatory-dependent respiratory failure. 2. Patient is status post tracheostomy, tolerating trach well. Continue current treatment plan. C ontinue current vent settings. Continue ABG, follow up with pulmonary. 3. Acute diastolic heart failure, clinically improving. Continue current diuretic regimen. 4. Dysphagia status post percutaneous endoscopic gastrostomy. Continue tube feeding. 5. Sepsis secondary to pneumonia. Patient is completing antibiotic course. 6. Leukocytosis. The patient had a significant increase overnight. Unclear if this is due to ster oids, ongoing infection or spurious. Will repeat a CBC. 7. Acute encephalopathy, etiology is toxic metabolic, hypercapnia. The patient's mental status slo wly improving. 8. History of bipolar disorder. Will start the patient on Valproic acid 250 mg b.i.d. Continue Ser oquel and Ativan p.r.n. 9. Anemia. Continue to monitor hemoglobin and hematocrit levels. 10. History of coronary artery disease. Continue current medical management. 11. Azotemia secondary to hypercatabolic state. Diuretics. Continue to monitor. 12. Hypertension. Continue current blood pressure regimen. 13. Gastrointestinal and deep venous thrombosis prophylaxis with inhibitor and Lovenox. DISPOSITION: The patient is pending eventual transfer to [place] once a bed is available. Dictated By: ARMY PERRY/ALYSON Conf#: [id number] [facility]#: [id number]
--- NOTE | 2016-10-19 10:55 | CONS ---
Date/Time of Note Date/Time of Note DATE: 10/19/16 TIME: 10:53 Assessment/Plan Assessment/Plan Additional Assessment/Plan Ventilator settings; AC of 16, tidal volume 500, PEEP of 5, 30% FiO2. Assessment recommendations; 1. Patient admitted for recurrent respiratory failure, status post tracheostomy. 2. History of cardiac arrhythmia. 3. History of hypertension. 4. Increasing leukocytosis. Continue current treatment. Add cefepime 1 g every 12 hours IV. Obtain chest x -ray. Once the x-ray is done I will review it and make further recommendations. Consultation Date/Type/Reason Admit Date/Time Sep 29, 2016 at 09:25 Type of Consultation: pulmonary 24 HR Interval Summary Free Text/Dictation Patient condition remains stable. Remains awake alert. Has remained hemodynamically stable. Exam; middle-aged male, on ventilator via tracheostomy, awake alert currently in no distress. Exam/Review of Systems Vital Signs Vitals Vital Signs Date Time Temp Pulse Resp B/P Pulse Ox O2 Delivery O2 Flow Rate FiO2 10/19/16 09:40 94 19 97 30 10/19/16 07:58 99.3 125/81 10/17/16 18:00 Mechanical Ventilator Intake and Output 10/18/16 10/18/16 10/19/16 15:00 23:00 07:00 Intake Total 1160 ml 840 ml Output Total 1300 ml 900 ml Balance -140 ml -60 ml Exam HEENT exam is; supple neck, no JVD. No lymphadenopathy. Midline trachea. Patient has fair dentition. Tracheostomy in place with clean insertion site. Chest examination; diminished but clear vessel. S1-S2 audible, no murmurs. Regular rhythm. Abdomen examination; soft, protuberant. Nontender. G-tube in place. Bowel sounds audible. Extremity examination; no peripheral edema. Pulses 1+ bilaterally. GLOBAL RECRUITER examination; no focal deficit. Results Result Diagram: 10/19/16 0650 10/19/16 0650 Results 24 hrs Laboratory Tests Test 10/19/16 06:50 White Blood Count 23.9 #H Red Blood Count 3.80 L Hemoglobin 11.7 L Hematocrit 37.4 L Mean Corpuscular Volume 98.4 Mean Corpuscular Hemoglobin 30.8 Mean Corpuscular Hemoglobin Concent 31.3 L Red Cell Distribution Width 13.7 Platelet Count 175 # Mean Platelet Volume 10.5 H Neutrophils % 87.0 H Lymphocytes % 1.6 L Monocytes % 10.5 Eosinophils % 0.0 Basophils % 0.1 Nucleated Red Blood Cells % 0.0 Neutrophils # 20.8 H Lymphocytes # 0.4 L Monocytes # 2.5 H Eosinophils # 0.0 Basophils # 0.0 Nucleated Red Blood Cells # 0.0 Sodium Level 138 Potassium Level 4.4 Chloride Level 96 L Carbon Dioxide Level 39 H Anion Gap 7 L Blood Urea Nitrogen 28 H Creatinine 0.51 L Glucose Level 135 Calcium Level 8.7 Phosphorus Level 2.9 Magnesium Level 2.6 H Medications Medications Current Medications Acetaminophen (Tylenol Tab) 650 mg Q4H PRN PO MILD PAIN LEVEL 1-3 Last administered on 10/18/16 03:07; Admin Dose 650 MG; Start 09/29/16 at 11:00 Acetaminophen (Tylenol Tab) 1,000 mg Q4H PRN PO PAIN LEVEL 4-6/10 Last administered on 10/19/16 09:43; Admin Dose 1,000 MG; Start 09/29/16 at 11:00 Amiodarone HCl (Cordarone) 200 mg DAILY PO Last administered on 10/19/16 09:17 ; Admin Dose 200 MG; Start 09/30/16 at 09:00 Ascorbic Acid (Vitamin C) 500 mg DAILY PO Last administered on 10/19/16 09:17; Admin Dose 500 MG; Start 09/30/16 at 09:00 Aspirin (Aspirin) 81 mg DAILY PO Last administered on 10/19/16 09:15; Admin Dose 81 MG; Start 09/30/16 at 09:00 Atorvastatin Calcium (Lipitor) 5 mg QHS PO Last administered on 10/18/16 21:43 ; Admin Dose 5 MG; Start 09/29/16 at 21:00 Bisacodyl (Dulcolax Supp) 10 mg DAILY PRN [place] CONSTIPATION; Start 09/29/16 at 11 :00 Docusate Sodium (Colace) 200 mg QHS PRN PO CONSTIPATION; Start 09/29/16 at 11: 00 Loratadine (Claritin) 10 mg DAILY PO Last administered on 10/19/16 09:19; Admin Dose 10 MG; Start 09/30/16 at 09:00 Al Hydrox/Mg Hydrox/Simethicone (Mag-Al Plus) 30 ml Q6H PO Last administered on 10/19/16 05:19; Admin Dose 30 ML; Start 09/29/16 at 11:00 Magnesium Hydroxide (Milk Of Mag) 30 ml DAILY PRN PO CONSTIPATION Last administered on 10/11/16 20:35; Admin Dose 30 ML; Start 09/29/16 at 11:00 Metoprolol Tartrate (Lopressor) 25 mg BID PO Last administered on 10/19/16 09: 19; Admin Dose 25 MG; Start 09/29/16 at 21:00 Montelukast Sodium (Singulair) 10 mg QHS PO Last administered on 10/18/16 21:43 ; Admin Dose 10 MG; Start 09/29/16 at 21:00 Multivitamins Therapeutic (Theragran) 1 tab DAILY PO Last administered on 09:19; Admin Dose 1 TAB; Start 09/30/16 at 09:00 Sodium Biphosphate/ Sodium Phosphate (Fleet Enema) 118 ml prn PRN [place] CONSTIPATION; Start 09/29/16 at 11:00 Eye Lubricant (Artificial Tears Oph) 1 drop TID BOTH EYES Last administered on 10/19/16 09:19; Admin Dose 1 DROP; Start 09/29/16 at 13:00 Lactobacillus Acidophilus (Florajen3 Capsule) 1 each BID PO Last administered on 10/19/16 09:13; Admin Dose 1 EACH; Start 09/29/16 at 21:00 Enoxaparin Sodium (Lovenox) 40 mg DAILY SC Last administered on 10/19/16 09:43 ; Admin Dose 40 MG; Start 09/30/16 at 09:00 Lansoprazole (Prevacid) 30 mg BID NGT Last administered on 10/19/16 09:20; Admin Dose 30 MG; Start 09/30/16 at 21:00 Lorazepam (Ativan) 0.5 mg Q8H PRN IV anxiety Last administered on 10/18/16 00: 53; Admin Dose 0.5 MG; Start 10/09/16 at 08:00 Quetiapine Fumarate (Seroquel) 25 mg QHS PRN NGT anxiety Last administered on 21:47; Admin Dose 25 MG; Start 10/11/16 at 21:00 Sodium Biphosphate/ Sodium Phosphate (Fleet Enema) 133 ml DAILY PRN [place] CONSTIPATION; Start 10/11/16 at 08:30 Betamethasone/ Clotrimazole (Lotrisone Cr) 1 applic BID TOP Last administered on 10/19/16 09:13; Admin Dose 1 APPLIC; Start 10/11/16 at 14:00 Nystatin 1 applic 1 applic BID TOP Last administered on 10/19/16 09:44; Admin Dose 1 APPLIC; Start 10/11/16 at 15:00 Caspofungin/ Sodium Chloride (Cancidas/NS) 250 ml @ 250 mls/hr Q24H IVPB Last administered on 10/18/16 16:45; Admin Dose 250 MLS/HR; Start 10/12/16 at 15:00 Nystatin (Nystatin Susp) 5 ml QID PO Last administered on 10/19/16 09:13; Admin Dose 5 ML; Start 10/11/16 at 13:58 Furosemide (Lasix) 20 mg DAILY IV Last administered on 10/19/16 09:15; Admin Dose 20 MG; Start 10/14/16 at 09:00 Fentanyl (Duragesic 50 Mcg/Hr Patch) 1 patch Q72H TRANSDERM Last administered on 10/16/16 10:38; Admin Dose 1 PATCH; Start 10/16/16 at 11:00 Lorazepam (Ativan) 2 mg Q6H PO Last administered on 10/19/16 03:43; Admin Dose 2 MG; Start 10/16/16 at 10:00 Spironolactone (Aldactone) 25 mg DAILY@06 NGT Last administered on 10/19/16 05: 21; Admin Dose 25 MG; Start 10/16/16 at 12:30 Prednisone (Prednisone) 30 mg DAILY GTB Last administered on 10/19/16 09:13; Admin Dose 30 MG; Start 10/19/16 at 09:00 Acetaminophen/ Hydrocodone Bitart ([place] (5/325)) 1 tab Q6H PRN PO PAIN LEVEL 4 -7; Start 10/18/16 at 12:00 Morphine Sulfate (morphine) 1 mg Q6H PRN IV PAIN LEVEL 7-10 Last administered on 10/18/16 22:15; Admin Dose 1 MG; Start 10/18/16 at 12:30 Valproic Acid (Depakene) 250 mg BID PO ; Start 10/19/16 at 21:00 SHARON LLAMAS October 19, 2016 10:55
--- NOTE | 2016-10-19 11:06 | PN ---
DATE: 10/19/2016 CARDIOLOGY FOLLOWUP SUBJECTIVE: Discussed with the staff. Rhythm strip was reviewed. The patient remains in sinus rhy thm, no evidence of atrial fibrillation noted. Seen on the vent. Nonverbal. MEDICATIONS: Reviewed as per medication reconciliation, personally reviewed. PHYSICAL EXAMINATION: VITAL SIGNS: Temperature 99.3, heart rate of 103, blood pressure 125/81, respiration rate 18. Satu rating 98%. HEENT: Normocephalic, atraumatic. Obese gentleman. Status post tracheostomy, on the vent, 30% oxy gen. Pupils are equal and round. CARDIOVASCULAR: Regular rate and rhythm, systolic murmur. PULMONARY: Minimal rhonchi. GASTROINTESTINAL: Soft, nontender, obese. Status post PEG placement. EXTREMITIES: Positive ankle edema. NEUROLOGIC: Awake, follows commands. PSYCHIATRIC: Appears to be pleasant but slightly agitated. Slightly anxious. LABORATORY: WBC of 23.9, hemoglobin 11.7, platelet 175. Sodium 138, potassium 4.4, BUN of 28, crea tinine 0.51, glucose of 135. ASSESSMENT AND PLAN: 1. Hypoxemia and hypercapnic respiratory failure, status post tracheostomy, now vent dependent. 2. Fluid overload, congestive heart failure to diastolic dysfunction on diuretics, stable. 3. History of paroxysmal atrial fibrillation, currently remains in sinus rhythm. 4. Status post sepsis and pneumonia with elevation of WBC today. 5. History of chronic obstructive pulmonary disease. 6. History of psych disorder/bipolar disorder. 7. Anemia. 8. History of hypertension, currently good control. 9. Dysphagia, status post PEG placement. RECOMMENDATIONS: We will continue with the telemetry monitoring. Respiratory care will be continue d and managed as per pulmonary including Dr. Russo and associates. Electrolytes will be corrected as needed. Antibiotic is managed as per ID's recommendations. Dictated By: BRENTON RIOS MD AV/ALYSON Conf#: [id number] DID#: [id number] CC: RAMY DOMINGUEZ DO;*EndCC*
[2016-10-19] MEDS: FENTAnyl PATCH 50 MCG/HR TRANSDERM SCH (11:20)
[2016-10-19 12:03] LABS: ADD SCAN DIFF NO
[2016-10-19 12:13] LABS: ABNORMAL IP MESSAGE 1; BASOPHILS % 0.1 % (0.0-2.0); EOSINOPHILS % 0.1 % (0.0-7.0); HEMATOCRIT 36.8 % (42.0-52.0); HEMOGLOBIN 11.6 g/dl (14.0-18.0); LYMPHOCYTES # 0.7 10^3/ul (0.8-2.9); LYMPHOCYTES % 3.5 % (15.0-51.0); MEAN CORPUSCULAR HEMOGLOBIN 30.9 pg (29.0-33.0); MEAN CORPUSCULAR HGB CONC 31.5 g/dl (32.0-37.0); MEAN CORPUSCULAR VOLUME 98.1 fl (82.0-101.0); MEAN PLATELET VOLUME 10.7 fl (7.4-10.4); MONOCYTE # 1.9 10^3/ul (0.3-0.9); MONOCYTES % 9.6 % (0.0-11.0); PLATELET COUNT 158 10^3/UL (140-415); RED BLOOD COUNT 3.75 10^6/ul (4.70-6.10); RED CELL DISTRIBUTION WIDTH 13.8 % (11.5-14.5); WHITE BLOOD COUNT 19.7 10^3/ul (4.8-10.8)
[2016-10-19] MEDS: morphine 2 MG INJ IV PRN (12:56)
[2016-10-19] MEDS: CEFEPIME 1GM/50 ML (PMX) 50 ML IVPB SCH ×2 (12:56→21:01)
--- NOTE | 2016-10-19 14:10 | PN ---
DATE: 10/19/2016 SUBJECTIVE: No events overnight. Patient is lying comfortably in bed. No fevers. Tolerates tube feeding. No vomiting, no diarrhea. LABORATORY DATA: WBC today is 19.7, H 11.6 and 36.8, platelets 158, neutrophils 86. BUN 28, creat inine 0.51. ANTIMICROBIALS: Patient is on cefepime that was started today. He is also completing treatment wit h Cancidas. He is on oral prednisone. INDWELLINGS: Trach, PEG, Estrella, PICC line. PHYSICAL EXAMINATION: GENERAL: This is an obese, well-developed, middle-aged white man who is in no distress. HEENT: Head atraumatic, normocephalic. Sclerae anicteric. Buccal mucosa dry. NECK: Supple. Tracheostomy present. CHEST: Rise symmetrical. Breath sounds diminished to bases. HEART: S1, S2. ABDOMEN: Obese, soft, bowel tones present. EXTREMITIES: Without cyanosis. Bilateral edema. ASSESSMENT: 1. Respiratory failure. 2. Pneumonia. Chronic obstructive pulmonary disease exacerbation, patient was restarted on antibio tics this morning for increased leukocytosis. 3. Anemia. 4. Morbid obesity. 5. History of bipolar disorder. PLAN: The patient remains clinically unchanged. We are going to repeat cultures and follow on ches t x-ray that was ordered by pulmonary team this morning. Continue management as per primary team. Dictated By: NANCY MOREL BALL HOLDER for ARVIN VERDUZCO/NTS Conf#: [id number] DID#: [id number]
[2016-10-19] MEDS: HYDROCODONE/APAP (5/325) TAB PO PRN (16:20)
[2016-10-19] MEDS ORDERED: VALPROIC ACID 250 MG CAP PO SCH (21:00)
[2016-10-19] MEDS: ATORVASTATIN 10 MG TAB PO SCH (21:05)
[2016-10-19] MEDS: MONTELUKAST 10 MG TAB PO SCH (21:05)
[2016-10-19] MEDS: QUETIAPINE 25 MG TAB NGT PRN (21:22)
[2016-10-20] VITALS (23 sets, daily range): BP systolic 112–126; BP diastolic 58–75; PULSE 87–120; RESP 16–22
[2016-10-20] MEDS: ALBUTEROL 18 GM INHALER INH SCH ×4 (01:42→19:51)
[2016-10-20] MEDS: LORAZEPAM 1 MG TAB PO SCH ×4 (04:00→23:14)
[2016-10-20] MEDS: SPIRONOLACTONE 25 MG TAB NGT SCH (05:32)
[2016-10-20] MEDS: AL HYDROX/MG HYDROX/SIMETH 30 ML CUP PO SCH ×4 (05:32→23:14)
--- NOTE | 2016-10-20 05:37 | RADRPT ---
PROCEDURE: XR Chest. CLINICAL INDICATION: Respiratory failure TECHNIQUE: 2 AP views of the chest were obtained COMPARISON: Chest x-ray dated 10/16/2016 FINDINGS: A tracheostomy tube is in place. There is a right upper extremity PICC line with tip in the mid SVC . The lungs are hyperinflated with coarsening of the interstitial markings and increased lucency of th e upper lung zones. No focal airspace opacification, pleural effusion or pneumothorax is seen. The cardiomediastinal silhouette is within normal limits for size. The osseous structures demonstrate senescent changes. IMPRESSION: 1. Hyperinflation of the lungs chronic-appearing interstitial changes. No significant interval dagmar nge. 2. Tubes and lines, as described above. RPTAT: HH .Lyn Smith MD, Date Time Electronically viewed and signed by .Lyn Smith MD, on 10/20/2016 05:37 .G/
[2016-10-20 07:10] LABS: ADD SCAN DIFF NO
[2016-10-20 07:15] LABS: ABNORMAL IP MESSAGE 1; BASOPHILS % 0.1 % (0.0-2.0); EOSINOPHILS # 0.1 10^3/ul (0.0-0.5); EOSINOPHILS % 0.6 % (0.0-7.0); HEMATOCRIT 33.4 % (42.0-52.0); HEMOGLOBIN 10.5 g/dl (14.0-18.0); LYMPHOCYTES # 0.7 10^3/ul (0.8-2.9); LYMPHOCYTES % 4.5 % (15.0-51.0); MEAN CORPUSCULAR HEMOGLOBIN 31.3 pg (29.0-33.0); MEAN CORPUSCULAR HGB CONC 31.4 g/dl (32.0-37.0); MEAN CORPUSCULAR VOLUME 99.7 fl (82.0-101.0); MONOCYTE # 1.7 10^3/ul (0.3-0.9); MONOCYTES % 10.8 % (0.0-11.0); NEUTROPHIL # 13.4 10^3/ul (1.6-7.5); NEUTROPHILS % 83.6 % (39.0-77.0); PLATELET COUNT 135 10^3/UL (140-415); RED BLOOD COUNT 3.35 10^6/ul (4.70-6.10); RED CELL DISTRIBUTION WIDTH 13.9 % (11.5-14.5); WHITE BLOOD COUNT 16.1 10^3/ul (4.8-10.8)
[2016-10-20 07:25] LABS: POTASSIUM 4.2 mmol/L (3.5-5.1)
[2016-10-20 07:27] LABS: CREATININE 0.38 mg/dl (0.61-1.24)
[2016-10-20 07:29] LABS: CALCIUM 8.5 mg/dl (8.4-10.2); MAGNESIUM 2.1 mg/dl (1.7-2.5); PHOSPHORUS 2.5 mg/dl (2.5-4.9)
--- NOTE | 2016-10-20 08:59 | CONS ---
Date/Time of Note Date/Time of Note DATE: 10/20/16 TIME: 08:58 Consult Date/Type/Reason Admit Date/Time Sep 29, 2016 at 09:25 Type of Consultation: nephrology Subjective pt. seen and examined no new events d/w cardiology PE: HEENT: Head is normocephalic. NECK: Shows trach. HEART: Regular rate. LUNGS: Show diminished breath sounds at base. ABDOMEN: Soft, nontender to palpation. No rebound or guarding. EXTREMITIES: Negative for clubbing, cyanosis. Trace edema. DERMATOLOGIC: No rashes. MUSCULOSKELETAL: No joint effusions. NEUROLOGIC: No change in exam. Objective Vital Signs Date Time Temp Pulse Resp B/P Pulse Ox O2 Delivery O2 Flow Rate FiO2 10/20/16 08:29 97 10/20/16 07:38 16 99 30 10/20/16 07:13 98.7 112/67 10/17/16 18:00 Mechanical Ventilator Intake and Output 10/19/16 10/19/16 10/20/16 14:59 22:59 06:59 Intake Total 50 ml 1070 ml 1070 ml Output Total 1200 ml 800 ml Balance 50 ml -130 ml 270 ml Results/Medications Result Diagram: 10/20/16 0625 10/20/16 0625 Results 24 hrs Laboratory Tests Test 10/19/16 11:45 10/20/16 06:25 White Blood Count 19.7 H 16.1 H Red Blood Count 3.75 L 3.35 L Hemoglobin 11.6 L 10.5 L Hematocrit 36.8 L 33.4 L Mean Corpuscular Volume 98.1 99.7 Mean Corpuscular Hemoglobin 30.9 31.3 Mean Corpuscular Hemoglobin Concent 31.5 L 31.4 L Red Cell Distribution Width 13.8 13.9 Platelet Count 158 135 L Mean Platelet Volume 10.7 H 11.0 H Neutrophils % 86.0 H 83.6 H Lymphocytes % 3.5 L 4.5 L Monocytes % 9.6 10.8 Eosinophils % 0.1 0.6 Basophils % 0.1 0.1 Nucleated Red Blood Cells % 0.0 0.0 Neutrophils # 17.0 H 13.4 H Lymphocytes # 0.7 L 0.7 L Monocytes # 1.9 H 1.7 H Eosinophils # 0.0 0.1 Basophils # 0.0 0.0 Nucleated Red Blood Cells # 0.0 0.0 Sodium Level 138 Potassium Level 4.2 Chloride Level 95 L Carbon Dioxide Level 36 H Anion Gap 11 Blood Urea Nitrogen 23 H Creatinine 0.38 L Glucose Level 90 # Calcium Level 8.5 Phosphorus Level 2.5 Magnesium Level 2.1 Medications Current Medications Acetaminophen (Tylenol Tab) 650 mg Q4H PRN PO MILD PAIN LEVEL 1-3 Last administered on 10/18/16 03:07; Admin Dose 650 MG; Start 09/29/16 at 11:00 Acetaminophen (Tylenol Tab) 1,000 mg Q4H PRN PO PAIN LEVEL 4-6/10 Last administered on 10/19/16 09:43; Admin Dose 1,000 MG; Start 09/29/16 at 11:00 Amiodarone HCl (Cordarone) 200 mg DAILY PO Last administered on 10/19/16 09:17 ; Admin Dose 200 MG; Start 09/30/16 at 09:00 Ascorbic Acid (Vitamin C) 500 mg DAILY PO Last administered on 10/19/16 09:17; Admin Dose 500 MG; Start 09/30/16 at 09:00 Aspirin (Aspirin) 81 mg DAILY PO Last administered on 10/19/16 09:15; Admin Dose 81 MG; Start 09/30/16 at 09:00 Atorvastatin Calcium (Lipitor) 5 mg QHS PO Last administered on 10/19/16 21:05 ; Admin Dose 5 MG; Start 09/29/16 at 21:00 Bisacodyl (Dulcolax Supp) 10 mg DAILY PRN [place] CONSTIPATION; Start 09/29/16 at 11 :00 Docusate Sodium (Colace) 200 mg QHS PRN PO CONSTIPATION; Start 09/29/16 at 11: 00 Loratadine (Claritin) 10 mg DAILY PO Last administered on 10/19/16 09:19; Admin Dose 10 MG; Start 09/30/16 at 09:00 Al Hydrox/Mg Hydrox/Simethicone (Mag-Al Plus) 30 ml Q6H PO Last administered on 10/20/16 05:32; Admin Dose 30 ML; Start 09/29/16 at 11:00 Magnesium Hydroxide (Milk Of Mag) 30 ml DAILY PRN PO CONSTIPATION Last administered on 10/11/16 20:35; Admin Dose 30 ML; Start 09/29/16 at 11:00 Metoprolol Tartrate (Lopressor) 25 mg BID PO Last administered on 10/19/16 21: 05; Admin Dose 25 MG; Start 09/29/16 at 21:00 Montelukast Sodium (Singulair) 10 mg QHS PO Last administered on 10/19/16 21:05 ; Admin Dose 10 MG; Start 09/29/16 at 21:00 Multivitamins Therapeutic (Theragran) 1 tab DAILY PO Last administered on 09:19; Admin Dose 1 TAB; Start 09/30/16 at 09:00 Sodium Biphosphate/ Sodium Phosphate (Fleet Enema) 118 ml prn PRN [place] CONSTIPATION; Start 09/29/16 at 11:00 Eye Lubricant (Artificial Tears Oph) 1 drop TID BOTH EYES Last administered on 10/19/16 21:22; Admin Dose 1 DROP; Start 09/29/16 at 13:00 Lactobacillus Acidophilus (Florajen3 Capsule) 1 each BID PO Last administered on 10/19/16 21:00; Admin Dose 1 EACH; Start 09/29/16 at 21:00 Enoxaparin Sodium (Lovenox) 40 mg DAILY SC Last administered on 10/19/16 09:43 ; Admin Dose 40 MG; Start 09/30/16 at 09:00 Lansoprazole (Prevacid) 30 mg BID NGT Last administered on 10/19/16 21:05; Admin Dose 30 MG; Start 09/30/16 at 21:00 Lorazepam (Ativan) 0.5 mg Q8H PRN IV anxiety Last administered on 10/18/16 00: 53; Admin Dose 0.5 MG; Start 10/09/16 at 08:00 Quetiapine Fumarate (Seroquel) 25 mg QHS PRN NGT anxiety Last administered on 21:22; Admin Dose 25 MG; Start 10/11/16 at 21:00 Sodium Biphosphate/ Sodium Phosphate (Fleet Enema) 133 ml DAILY PRN [place] CONSTIPATION; Start 10/11/16 at 08:30 Betamethasone/ Clotrimazole (Lotrisone Cr) 1 applic BID TOP Last administered on 10/19/16 21:00; Admin Dose 1 APPLIC; Start 10/11/16 at 14:00 Nystatin (Nystatin Powder) 1 applic BID TOP Last administered on 10/19/16 21:06 ; Admin Dose 1 APPLIC; Start 10/11/16 at 15:00 Nystatin (Nystatin Susp) 5 ml QID PO Last administered on 10/19/16 21:04; Admin Dose 5 ML; Start 10/11/16 at 13:58 Furosemide (Lasix) 20 mg DAILY IV Last administered on 10/19/16 09:15; Admin Dose 20 MG; Start 10/14/16 at 09:00 Fentanyl (Duragesic 50 Mcg/Hr Patch) 1 patch Q72H TRANSDERM Last administered on 10/19/16 11:20; Admin Dose 1 PATCH; Start 10/16/16 at 11:00 Lorazepam (Ativan) 2 mg Q6H PO Last administered on 10/20/16 04:00; Admin Dose 2 MG; Start 10/16/16 at 10:00 Spironolactone (Aldactone) 25 mg DAILY@06 NGT Last administered on 10/20/16 05: 32; Admin Dose 25 MG; Start 10/16/16 at 12:30 Prednisone (Prednisone) 30 mg DAILY GTB Last administered on 10/19/16 09:13; Admin Dose 30 MG; Start 10/19/16 at 09:00 Acetaminophen/ Hydrocodone Bitart ([place] (5/325)) 1 tab Q6H PRN PO PAIN LEVEL 4 -7 Last administered on 10/19/16 16:20; Admin Dose 1 TAB; Start 10/18/16 at 12:00 Morphine Sulfate (morphine) 1 mg Q6H PRN IV PAIN LEVEL 7-10 Last administered on 10/19/16 12:56; Admin Dose 1 MG; Start 10/18/16 at 12:30 Valproic Acid 250 mg 250 mg BID PO Last administered on 10/19/16 21:04; Admin Dose 250 MG; Start 10/19/16 at 21:00 Cefepime HCl (Maxipime 1gm/50 ml (Pmx)) 50 ml @ 100 mls/hr Q12 IVPB Last administered on 10/19/16 21:01; Admin Dose 100 MLS/HR; Start 10/19/16 at 12:00 Assessment/Plan Chief Complaint/Hosp Course 1. Ventilator dependent respiratory failure, etiology secondary to COPD exacerbation, chronic lung disease, CHF. The patient has failed multiple weaning trials pending a trach placement this morning. 2. Acute diastolic heart failure, clinically improving. Continue current diuretic regimen. 3. Mild hyponatremia, resolved. 4. Sepsis secondary to pneumonia. The patient has completed antibiotic course. 5. Leukocytosis secondary to sepsis, steroids, slightly worse, Continue to monitor. 6. Acute encephalopathy secondary to hypercapnia. Continue to monitor. 7. History of bipolar disorder. Continue Seroquel and Ativan p.r.n. 8. Anemia. Continue to monitor hemoglobin and hematocrit levels. 9. Coronary artery disease. Continue current medical management. 10. Azotemia secondary to underlying diuretic therapy and hypercatabolic state. Continue to monitor. 11. Hypertension. Continue current blood pressure regimen. 12. Dysphagia. s/p PEG, cont. feeds. 13. Gastrointestinal and deep venous thrombosis prophylaxis. Continue proton pump inhibitor and Lovenox. Please note I spent over 30 minutes of critical care time with this patient. Problems: HAZEL SOTOMAYOR MD October 20, 2016 08:59
[2016-10-20] MEDS: L ACIDOPHIL/B LACTIS/B LONGUM CAPSULE PO SCH ×2 (09:00→21:00)
[2016-10-20] MEDS: NYSTATIN SUSP 5 ML CUP PO SCH ×4 (09:23→22:22)
[2016-10-20] MEDS: ASPIRIN 81 MG TAB PO SCH (09:23)
[2016-10-20] MEDS: VALPROIC ACID LIQUID CUP 250 MG/5 ML CUP GTB SCH ×2 (09:23→22:22)
[2016-10-20] MEDS: CEFEPIME 1GM/50 ML (PMX) 50 ML IVPB SCH (09:23)
[2016-10-20] MEDS: predniSONE 10 MG TAB GTB SCH (09:24)
[2016-10-20] MEDS: LANSOPRAZOLE 30 MG CAP NGT SCH ×2 (09:25→22:23)
[2016-10-20] MEDS: METOPROLOL 25 MG TAB PO SCH ×2 (09:25→22:28)
[2016-10-20] MEDS: ASCORBIC ACID 500 MG TAB PO SCH (09:25)
[2016-10-20] MEDS: AMIODARONE 200 MG TAB PO SCH (09:25)
[2016-10-20] MEDS: LORATADINE 10 MG TAB PO SCH (09:25)
[2016-10-20] MEDS: FUROSEMIDE 20 MG INJ IV SCH (09:25)
[2016-10-20] MEDS: MULTIVITAMINS THERAPEUTIC TAB PO SCH (09:25)
[2016-10-20] MEDS: ARTIFICIAL TEARS 15 ML OPH BOTH EYES SCH ×3 (09:26→22:32)
[2016-10-20] MEDS: BETAMETHASONE/CLOTRIMAZOLE 15 GM CR TOP SCH ×2 (09:26→22:30)
[2016-10-20] MEDS: ENOXAPARIN 40 MG/0.4 ML SYG SC SCH (09:45)
[2016-10-20] MEDS: NYSTATIN 30 GM POWDER BTL TOP SCH ×2 (09:46→22:31)
--- NOTE | 2016-10-20 10:09 | PN ---
DATE: 10/20/2016 CARDIOLOGY FOLLOWUP SUBJECTIVE: Discussed with the staff. Discussed with Dr. Caal. Rhythm strip was reviewed. The patient remains in sinus rhythm. No chest pain or pressure. Remains intubated on the vent, sedate d, trached. MEDICATIONS: Reviewed as per medication reconciliation, personally reviewed. PHYSICAL EXAMINATION: VITAL SIGNS: Temperature 98.7, heart rate 97, blood pressure 112/67, respirations 18, saturating 99 %. HEENT: Normocephalic, atraumatic. Pupils are equal. Obese gentleman. NECK: Status post tracheostomy, on the vent. CARDIOVASCULAR: Regular rate and rhythm, systolic murmur. PULMONARY: With no wheezes heard now. Mild rhonchi at the bases. GASTROINTESTINAL: Soft, nontender. EXTREMITIES: Positive lower extremity edema. NEUROLOGIC: Awake, follows basic commands. PSYCHIATRIC: Anxious. LABORATORY DATA: WBC of 16.1, hemoglobin 10.5, platelets of 135. Sodium 138, potassium 4.2, BUN of 23, creatinine 0.38, glucose of 90. Magnesium is 2.1. ASSESSMENT AND PLAN: 1. Hypoxemia hypercapnic respiratory failure, status post tracheostomy, vent-dependent. 2. Status post fluid overload, congestive heart failure, currently appears to be euvolemic. 3. Paroxysmal atrial fibrillation, currently remains in sinus rhythm. 4. Status post sepsis and pneumonia, currently significantly improved. 5. History of chronic obstructive pulmonary disease. 6. History of psychiatric disorder and bipolar disorder. 7. Anemia under control now. 8. History of hypertension under good control. 9. Dysphagia, status post PEG placement. RECOMMENDATIONS: Continue ventilatory care and respiratory care. Weaning as tolerated, will defer to pulmonary. Continue with trach care. We will continue to monitor on telemetry. Electrolytes wi ll be corrected as needed. Antibiotics will be managed as per ID recommendations. Dictated By: BRENTON RIOS MD AV/NTS Conf#: [id number] DID#: [id number] CC: HAZEL CAAL MD;*EndCC*
[2016-10-20] MEDS: morphine 2 MG INJ IV PRN ×3 (10:13→23:49)
--- NOTE | 2016-10-20 10:51 | CONS ---
Date/Time of Note Date/Time of Note DATE: 10/20/16 TIME: 10:48 Assessment/Plan Assessment/Plan Additional Assessment/Plan Ventilator settings; AC of 16, tidal volume 500, PEEP of 5, 50% FiO2. Chest x-ray was reviewed from yesterday which is essentially unremarkable. Assessment recommendations; 1. Patient admitted for COPD exacerbation subsequently requiring tracheostomy and G-tube. 2. Underlying COPD. 3. Likely underlying sleep apnea. 4. History of cardiac arrhythmia. 5. Depression. 6. Hypertension. Episode of leukocytosis etiology is unclear. Patient given cefepime empirically. Continue current treatment. Discontinue cefepime. Monitor white cell count. Consultation Date/Type/Reason Admit Date/Time Sep 29, 2016 at 09:25 Type of Consultation: Pulmonary 24 HR Interval Summary Free Text/Dictation Patient condition remains stable. Remains ventilator dependent. Has remained hemodynamically stable. General exam; middle-aged male, on ventilator via tracheostomy currently in no distress. Exam/Review of Systems Vital Signs Vitals Vital Signs Date Time Temp Pulse Resp B/P Pulse Ox O2 Delivery O2 Flow Rate FiO2 10/20/16 09:09 95 16 99 30 10/20/16 07:13 98.7 112/67 10/17/16 18:00 Mechanical Ventilator Intake and Output 10/19/16 10/19/16 10/20/16 15:00 23:00 07:00 Intake Total 50 ml 1070 ml 1070 ml Output Total 1200 ml 800 ml Balance 50 ml -130 ml 270 ml Exam HEENT examination; supple neck, no JVD. No lymphadenopathy. Midline trachea. No thyromegaly. Tracheostomy placed with clean insertion site. Patient has fair dentition. Pupils are midsize and reactive to light. Chest examination; diminished but clear vessel. No added sound. S1-S2 audible , no murmurs. Regular rhythm. Abdomen examination; soft, G-tube in place. No organomegaly. Bowel sounds audible. Nontender. Extremity examination; no peripheral edema. Pulses 1+ bilaterally. 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 Results Result Diagram: 10/20/16 0625 10/20/1625 Results 24 hrs Laboratory Tests Test 10/19/16 11:45 10/20/16 06:25 White Blood Count 19.7 H 16.1 H Red Blood Count 3.75 L 3.35 L Hemoglobin 11.6 L 10.5 L Hematocrit 36.8 L 33.4 L Mean Corpuscular Volume 98.1 99.7 Mean Corpuscular Hemoglobin 30.9 31.3 Mean Corpuscular Hemoglobin Concent 31.5 L 31.4 L Red Cell Distribution Width 13.8 13.9 Platelet Count 158 135 L Mean Platelet Volume 10.7 H 11.0 H Neutrophils % 86.0 H 83.6 H Lymphocytes % 3.5 L 4.5 L Monocytes % 9.6 10.8 Eosinophils % 0.1 0.6 Basophils % 0.1 0.1 Nucleated Red Blood Cells % 0.0 0.0 Neutrophils # 17.0 H 13.4 H Lymphocytes # 0.7 L 0.7 L Monocytes # 1.9 H 1.7 H Eosinophils # 0.0 0.1 Basophils # 0.0 0.0 Nucleated Red Blood Cells # 0.0 0.0 Sodium Level 138 Potassium Level 4.2 Chloride Level 95 L Carbon Dioxide Level 36 H Anion Gap 11 Blood Urea Nitrogen 23 H Creatinine 0.38 L Glucose Level 90 # Calcium Level 8.5 Phosphorus Level 2.5 Magnesium Level 2.1 Medications Medications Current Medications Acetaminophen (Tylenol Tab) 650 mg Q4H PRN PO MILD PAIN LEVEL 1-3 Last administered on 10/18/16 03:07; Admin Dose 650 MG; Start 09/29/16 at 11:00 Acetaminophen (Tylenol Tab) 1,000 mg Q4H PRN PO PAIN LEVEL 4-6/10 Last administered on 10/19/16 09:43; Admin Dose 1,000 MG; Start 09/29/16 at 11:00 Amiodarone HCl (Cordarone) 200 mg DAILY PO Last administered on 10/20/16 09:25 ; Admin Dose 200 MG; Start 09/30/16 at 09:00 Ascorbic Acid (Vitamin C) 500 mg DAILY PO Last administered on 10/20/16 09:25; Admin Dose 500 MG; Start 09/30/16 at 09:00 Aspirin (Aspirin) 81 mg DAILY PO Last administered on 10/20/16 09:23; Admin Dose 81 MG; Start 09/30/16 at 09:00 Atorvastatin Calcium (Lipitor) 5 mg QHS PO Last administered on 10/19/16 21:05 ; Admin Dose 5 MG; Start 09/29/16 at 21:00 Bisacodyl (Dulcolax Supp) 10 mg DAILY PRN [place] CONSTIPATION; Start 09/29/16 at 11 :00 Docusate Sodium (Colace) 200 mg QHS PRN PO CONSTIPATION; Start 09/29/16 at 11: 00 Loratadine (Claritin) 10 mg DAILY PO Last administered on 10/20/16 09:25; Admin Dose 10 MG; Start 09/30/16 at 09:00 Al Hydrox/Mg Hydrox/Simethicone (Mag-Al Plus) 30 ml Q6H PO Last administered on 10/20/16 05:32; Admin Dose 30 ML; Start 09/29/16 at 11:00 Magnesium Hydroxide (Milk Of Mag) 30 ml DAILY PRN PO CONSTIPATION Last administered on 10/11/16 20:35; Admin Dose 30 ML; Start 09/29/16 at 11:00 Metoprolol Tartrate (Lopressor) 25 mg BID PO Last administered on 10/20/16 09: 25; Admin Dose 25 MG; Start 09/29/16 at 21:00 Montelukast Sodium (Singulair) 10 mg QHS PO Last administered on 10/19/16 21:05 ; Admin Dose 10 MG; Start 09/29/16 at 21:00 Multivitamins Therapeutic (Theragran) 1 tab DAILY PO Last administered on 09:25; Admin Dose 1 TAB; Start 09/30/16 at 09:00 Sodium Biphosphate/ Sodium Phosphate (Fleet Enema) 118 ml prn PRN [place] CONSTIPATION; Start 09/29/16 at 11:00 Eye Lubricant (Artificial Tears Oph) 1 drop TID BOTH EYES Last administered on 10/20/16 09:26; Admin Dose 1 DROP; Start 09/29/16 at 13:00 Lactobacillus Acidophilus (Florajen3 Capsule) 1 each BID PO Last administered on 10/19/16 21:00; Admin Dose 1 EACH; Start 09/29/16 at 21:00 Enoxaparin Sodium (Lovenox) 40 mg DAILY SC Last administered on 10/20/16 09:45 ; Admin Dose 40 MG; Start 09/30/16 at 09:00 Lansoprazole (Prevacid) 30 mg BID NGT Last administered on 10/20/16 09:25; Admin Dose 30 MG; Start 09/30/16 at 21:00 Lorazepam (Ativan) 0.5 mg Q8H PRN IV anxiety Last administered on 10/18/16 00: 53; Admin Dose 0.5 MG; Start 10/09/16 at 08:00 Quetiapine Fumarate (Seroquel) 25 mg QHS PRN NGT anxiety Last administered on 21:22; Admin Dose 25 MG; Start 10/11/16 at 21:00 Sodium Biphosphate/ Sodium Phosphate (Fleet Enema) 133 ml DAILY PRN [place] CONSTIPATION; Start 10/11/16 at 08:30 Betamethasone/ Clotrimazole (Lotrisone Cr) 1 applic BID TOP Last administered on 10/20/16 09:26; Admin Dose 1 APPLIC; Start 10/11/16 at 14:00 Nystatin (Nystatin Powder) 1 applic BID TOP Last administered on 10/20/16 09:46 ; Admin Dose 1 APPLIC; Start 10/11/16 at 15:00 Nystatin (Nystatin Susp) 5 ml QID PO Last administered on 10/20/16 09:23; Admin Dose 5 ML; Start 10/11/16 at 13:58 Furosemide (Lasix) 20 mg DAILY IV Last administered on 10/20/16 09:25; Admin Dose 20 MG; Start 10/14/16 at 09:00 Fentanyl (Duragesic 50 Mcg/Hr Patch) 1 patch Q72H TRANSDERM Last administered on 10/19/16 11:20; Admin Dose 1 PATCH; Start 10/16/16 at 11:00 Lorazepam (Ativan) 2 mg Q6H PO Last administered on 10/20/16 10:12; Admin Dose 2 MG; Start 10/16/16 at 10:00 Spironolactone (Aldactone) 25 mg DAILY@06 NGT Last administered on 10/20/16 05: 32; Admin Dose 25 MG; Start 10/16/16 at 12:30 Prednisone (Prednisone) 30 mg DAILY GTB Last administered on 10/20/16 09:24; Admin Dose 30 MG; Start 10/19/16 at 09:00 Acetaminophen/ Hydrocodone Bitart ([place] (5/325)) 1 tab Q6H PRN PO PAIN LEVEL 4 -7 Last administered on 10/19/16 16:20; Admin Dose 1 TAB; Start 10/18/16 at 12:00 Morphine Sulfate 1 mg 1 mg Q6H PRN IV PAIN LEVEL 7-10 Last administered on 10:13; Admin Dose 1 MG; Start 10/18/16 at 12:30 Cefepime HCl (Maxipime 1gm/50 ml (Pmx)) 50 ml @ 100 mls/hr Q12 IVPB Last administered on 10/20/16 09:23; Admin Dose 100 MLS/HR; Start 10/19/16 at 12:00 Valproate Sodium (Depakene Liquid Cup) 250 mg BID GTB Last administered on 09:23; Admin Dose 250 MG; Start 10/20/16 at 09:30 SHARON LLAMAS October 20, 2016 10:51
--- NOTE | 2016-10-20 13:15 | PN ---
DATE: 10/20/2016 INFECTIOUS DISEASE PROGRESS NOTE SUBJECTIVE: No acute changes. The patient is alert, looks comfortable. Denies pain, no fevers. VITAL SIGNS: Stable. LABORATORY DATA: WBC today 16.1, H and H 10.5 and 33.4, platelets 135, neutrophils 83.6, BUN 23, cr eatinine 0.38. DIAGNOSTICS: Chest x-ray from yesterday revealed no significant interval changes. INDWELLINGS: Trach, PEG, Estrella, PICC line placed on October 06. PHYSICAL EXAMINATION: GENERAL: This is an obese, well-developed, middle-aged white man who is awake, in no distress. HEENT: Head atraumatic, normocephalic. Sclerae anicteric. Buccal mucosa pink, dry. NECK: Supple. Tracheostomy present. CHEST: Rise symmetrical. Breath sounds diminished to bases. HEART: S1, S2. ABDOMEN: Soft, distended. Bowel sounds present. EXTREMITIES: With trace edema. ASSESSMENT: 1. Status post sepsis. 2. Status post pneumonia. 3. Chronic obstructive pulmonary disease. 4. Chronic respiratory failure. 5. Leukocytosis, likely steroid induced. 6. Bipolar disorder. 7. Morbid obesity. PLAN: The patient remains stable. He is currently off antibiotics, pending repeat cultures from . We will continue observing him. Follow cardiology and pulmonary recommendations. Above w as discussed with Dr. Hernandez. Dictated By: NANCY MOREL SUPERVISOR COSTUMING for ARVIN NOVA MD NI/NTS Conf#: [id number] DID#: [id number]
[2016-10-20] MEDS: LORAZEPAM 2 MG INJ IV PRN (19:02)
--- NOTE | 2016-10-20 20:02 | CONS ---
Date/Time of Note Date/Time of Note DATE: 10/20/16 TIME: 20:02 Assessment/Plan Assessment/Plan Additional Assessment/Plan Additional Assessment/Plan IMPRESSION: 1. Respiratory failure. 2. Bipolar disorder. 3. Atrial fibrillation. 4. Dysphagia. Status post PEG, patient is tolerating feeding, G-tube site is very clean 5. Obesity. 6. Chronic obstructive pulmonary disease. 7. Candidiasis. Plan Continue present care Continue feeding Abdominal binder all the time No dressing around the G-tube site Consultation Date/Type/Reason Admit Date/Time Sep 29, 2016 at 09:25 Type of Consultation: Pulmonary 24 HR Interval Summary Constitutional: improved, no complaints Exam/Review of Systems Vital Signs Vitals Vital Signs Date Time Temp Pulse Resp B/P Pulse Ox O2 Delivery O2 Flow Rate FiO2 10/20/16 19:47 106 17 97 30 10/20/16 16:14 98.6 118/72 10/17/16 18:00 Mechanical Ventilator Intake and Output 10/19/16 10/19/16 10/20/16 15:00 23:00 07:00 Intake Total 50 ml 1070 ml 1070 ml Output Total 1200 ml 800 ml Balance 50 ml -130 ml 270 ml Exam Constitutional: alert, oriented, well developed Psych: nl mood/affect, no complaints Head: atraumatic, normocephalic Eyes: EOMI, PERRL, nl conjunctiva, nl lids, nl sclera ENMT: nl external ears & nose, nl lips & teeth, nl nasal mucosa & septum Neck: non-tender, supple Respiratory: clear to auscultation, normal air movement Cardiovascular: nl pulses, regular rate and rhythm Gastrointestinal: nl liver, spleen, non-tender, soft Musculoskeletal: nl extremities to inspection, nl gait and stance Extremities: normal pulses Neurological: COLORED LEATHER SETTER II-XII intact, nl mental status, nl speech, nl strength Skin: nl turgor, No rash or lesions Lymph: nl lymph nodes Results Result Diagram: 10/20/16 0625 10/20/16 0625 Results 24 hrs Laboratory Tests Test 10/20/16 06:25 White Blood Count 16.1 H Red Blood Count 3.35 L Hemoglobin 10.5 L Hematocrit 33.4 L Mean Corpuscular Volume 99.7 Mean Corpuscular Hemoglobin 31.3 Mean Corpuscular Hemoglobin Concent 31.4 L Red Cell Distribution Width 13.9 Platelet Count 135 L Mean Platelet Volume 11.0 H Neutrophils % 83.6 H Lymphocytes % 4.5 L Monocytes % 10.8 Eosinophils % 0.6 Basophils % 0.1 Nucleated Red Blood Cells % 0.0 Neutrophils # 13.4 H Lymphocytes # 0.7 L Monocytes # 1.7 H Eosinophils # 0.1 Basophils # 0.0 Nucleated Red Blood Cells # 0.0 Sodium Level 138 Potassium Level 4.2 Chloride Level 95 L Carbon Dioxide Level 36 H Anion Gap 11 Blood Urea Nitrogen 23 H Creatinine 0.38 L Glucose Level 90 # Calcium Level 8.5 Phosphorus Level 2.5 Magnesium Level 2.1 Medications Medications Current Medications Acetaminophen (Tylenol Tab) 650 mg Q4H PRN PO MILD PAIN LEVEL 1-3 Last administered on 10/18/16 03:07; Admin Dose 650 MG; Start 09/29/16 at 11:00 Acetaminophen (Tylenol Tab) 1,000 mg Q4H PRN PO PAIN LEVEL 4-6/10 Last administered on 10/19/16 09:43; Admin Dose 1,000 MG; Start 09/29/16 at 11:00 Amiodarone HCl (Cordarone) 200 mg DAILY PO Last administered on 10/20/16 09:25 ; Admin Dose 200 MG; Start 09/30/16 at 09:00 Ascorbic Acid (Vitamin C) 500 mg DAILY PO Last administered on 10/20/16 09:25; Admin Dose 500 MG; Start 09/30/16 at 09:00 Aspirin (Aspirin) 81 mg DAILY PO Last administered on 10/20/16 09:23; Admin Dose 81 MG; Start 09/30/16 at 09:00 Atorvastatin Calcium (Lipitor) 5 mg QHS PO Last administered on 10/19/16 21:05 ; Admin Dose 5 MG; Start 09/29/16 at 21:00 Bisacodyl (Dulcolax Supp) 10 mg DAILY PRN [place] CONSTIPATION; Start 09/29/16 at 11 :00 Docusate Sodium (Colace) 200 mg QHS PRN PO CONSTIPATION; Start 09/29/16 at 11: 00 Loratadine (Claritin) 10 mg DAILY PO Last administered on 10/20/16 09:25; Admin Dose 10 MG; Start 09/30/16 at 09:00 Al Hydrox/Mg Hydrox/Simethicone (Mag-Al Plus) 30 ml Q6H PO Last administered on 10/20/16 16:49; Admin Dose 30 ML; Start 09/29/16 at 11:00 Magnesium Hydroxide (Milk Of Mag) 30 ml DAILY PRN PO CONSTIPATION Last administered on 10/11/16 20:35; Admin Dose 30 ML; Start 09/29/16 at 11:00 Metoprolol Tartrate (Lopressor) 25 mg BID PO Last administered on 10/20/16 09: 25; Admin Dose 25 MG; Start 09/29/16 at 21:00 Montelukast Sodium (Singulair) 10 mg QHS PO Last administered on 10/19/16 21:05 ; Admin Dose 10 MG; Start 09/29/16 at 21:00 Multivitamins Therapeutic (Theragran) 1 tab DAILY PO Last administered on 09:25; Admin Dose 1 TAB; Start 09/30/16 at 09:00 Sodium Biphosphate/ Sodium Phosphate (Fleet Enema) 118 ml prn PRN [place] CONSTIPATION; Start 09/29/16 at 11:00 Eye Lubricant (Artificial Tears Oph) 1 drop TID BOTH EYES Last administered on 10/20/16 16:10; Admin Dose 1 DROP; Start 09/29/16 at 13:00 Lactobacillus Acidophilus (Florajen3 Capsule) 1 each BID PO Last administered on 10/19/16 21:00; Admin Dose 1 EACH; Start 09/29/16 at 21:00 Enoxaparin Sodium (Lovenox) 40 mg DAILY SC Last administered on 10/20/16 09:45 ; Admin Dose 40 MG; Start 09/30/16 at 09:00 Lansoprazole (Prevacid) 30 mg BID NGT Last administered on 10/20/16 09:25; Admin Dose 30 MG; Start 09/30/16 at 21:00 Lorazepam (Ativan) 0.5 mg Q8H PRN IV anxiety Last administered on 10/20/16 19: 02; Admin Dose 0.5 MG; Start 10/09/16 at 08:00 Quetiapine Fumarate (Seroquel) 25 mg QHS PRN NGT anxiety Last administered on 21:22; Admin Dose 25 MG; Start 10/11/16 at 21:00 Sodium Biphosphate/ Sodium Phosphate (Fleet Enema) 133 ml DAILY PRN [place] CONSTIPATION; Start 10/11/16 at 08:30 Betamethasone/ Clotrimazole (Lotrisone Cr) 1 applic BID TOP Last administered on 10/20/16 09:26; Admin Dose 1 APPLIC; Start 10/11/16 at 14:00 Nystatin (Nystatin Powder) 1 applic BID TOP Last administered on 10/20/16 09:46 ; Admin Dose 1 APPLIC; Start 10/11/16 at 15:00 Nystatin (Nystatin Susp) 5 ml QID PO Last administered on 10/20/16 16:50; Admin Dose 5 ML; Start 10/11/16 at 13:58 Furosemide (Lasix) 20 mg DAILY IV Last administered on 10/20/16 09:25; Admin Dose 20 MG; Start 10/14/16 at 09:00 Fentanyl (Duragesic 50 Mcg/Hr Patch) 1 patch Q72H TRANSDERM Last administered on 10/19/16 11:20; Admin Dose 1 PATCH; Start 10/16/16 at 11:00 Lorazepam (Ativan) 2 mg Q6H PO Last administered on 10/20/16 16:49; Admin Dose 2 MG; Start 10/16/16 at 10:00 Spironolactone (Aldactone) 25 mg DAILY@06 NGT Last administered on 10/20/16 05: 32; Admin Dose 25 MG; Start 10/16/16 at 12:30 Prednisone (Prednisone) 30 mg DAILY GTB Last administered on 10/20/16 09:24; Admin Dose 30 MG; Start 10/19/16 at 09:00 Acetaminophen/ Hydrocodone Bitart ([place] (5/325)) 1 tab Q6H PRN PO PAIN LEVEL 4 -7 Last administered on 10/19/16 16:20; Admin Dose 1 TAB; Start 10/18/16 at 12:00 Morphine Sulfate (morphine) 1 mg Q6H PRN IV PAIN LEVEL 7-10 Last administered on 10/20/16 16:10; Admin Dose 1 MG; Start 10/18/16 at 12:30 Valproate Sodium (Depakene Liquid Cup) 250 mg BID GTB Last administered on 09:23; Admin Dose 250 MG; Start 10/20/16 at 09:30 JULIA DE GUZMAN MD October 20, 2016 20:02
[2016-10-20] MEDS: ATORVASTATIN 10 MG TAB PO SCH (22:23)
[2016-10-20] MEDS: MONTELUKAST 10 MG TAB PO SCH (22:27)
[2016-10-21] VITALS (13 sets, daily range): BP systolic 102–126; BP diastolic 57–83; PULSE 97–102; RESP 14–23
[2016-10-21] MEDS: ALBUTEROL 18 GM INHALER INH SCH ×2 (01:24→07:32)
[2016-10-21] MEDS: LORAZEPAM 1 MG TAB PO SCH ×2 (03:40→09:26)
[2016-10-21] MEDS: SPIRONOLACTONE 25 MG TAB NGT SCH (05:51)
[2016-10-21] MEDS: AL HYDROX/MG HYDROX/SIMETH 30 ML CUP PO SCH ×2 (05:51→11:51)
[2016-10-21] MEDS: LORAZEPAM 2 MG INJ IV PRN (05:52)
[2016-10-21] MEDS: HYDROCODONE/APAP (5/325) TAB PO PRN ×2 (05:52→09:28)
[2016-10-21] MEDS: L ACIDOPHIL/B LACTIS/B LONGUM CAPSULE PO SCH (09:00)
[2016-10-21] MEDS: ENOXAPARIN 40 MG/0.4 ML SYG SC SCH (09:20)
[2016-10-21] MEDS: NYSTATIN 30 GM POWDER BTL TOP SCH (09:21)
[2016-10-21] MEDS: BETAMETHASONE/CLOTRIMAZOLE 15 GM CR TOP SCH (09:22)
[2016-10-21] MEDS: ARTIFICIAL TEARS 15 ML OPH BOTH EYES SCH (09:22)
[2016-10-21] MEDS: VALPROIC ACID LIQUID CUP 250 MG/5 ML CUP GTB SCH (09:23)
[2016-10-21] MEDS: ASCORBIC ACID 500 MG TAB PO SCH (09:24)
[2016-10-21] MEDS: predniSONE 10 MG TAB GTB SCH (09:24)
[2016-10-21] MEDS: LORATADINE 10 MG TAB PO SCH (09:24)
[2016-10-21] MEDS: ASPIRIN 81 MG TAB PO SCH (09:24)
[2016-10-21] MEDS: MULTIVITAMINS THERAPEUTIC TAB PO SCH (09:24)
[2016-10-21] MEDS: LANSOPRAZOLE 30 MG CAP NGT SCH (09:24)
[2016-10-21] MEDS: NYSTATIN SUSP 5 ML CUP PO SCH (09:25)
[2016-10-21] MEDS: METOPROLOL 25 MG TAB PO SCH (09:25)
[2016-10-21] MEDS: AMIODARONE 200 MG TAB PO SCH (09:26)
[2016-10-21] MEDS: FUROSEMIDE 20 MG INJ IV SCH (09:26)
--- NOTE | 2016-10-21 10:25 | PN ---
DATE: 10/21/2016 SUBJECTIVE: Discussed with the staff. Rhythm strip was reviewed. The patient remains in sinus rhy thm, no evidence of atrial fibrillation. Denies any chest pain or pressure. Status post tracheosto my, on the vent. MEDICATIONS: Reviewed as per medication reconciliation, personally reviewed. PHYSICAL EXAMINATION: VITAL SIGNS: Temperature 99.6, heart rate 102, blood pressure 110/58, respiratory rate of 14, satur ating to 91% to 98%. HEENT: Normocephalic, atraumatic. Obese gentleman. Pupils are equal. NECK: Status post tracheostomy, on the vent. CARDIOVASCULAR: Regular rate and rhythm. Systolic murmur. PULMONARY: With no wheezes heard anteriorly with mild rhonchi. GASTROINTESTINAL: Obese, soft, nontender. EXTREMITIES: Trivial edema. NEUROLOGIC: Awake, responds appropriately. PSYCHIATRIC: Appears to be calm now. ASSESSMENT AND PLAN: 1. Hypoxemia and hypercapnic respiratory failure, status post tracheostomy, vent dependent. 2. Status post sepsis, currently improved. 3. Status post fluid overload and congestive heart failure secondary to diastolic dysfunction, curr ently appeared euvolemic. 4. History of paroxysmal atrial fibrillation, currently in sinus rhythm. 5. Chronic obstructive pulmonary disease. 6. History of psychiatric disorder. 7. Anemia. 8. Hypertension, currently stable. 9. Dysphagia, status post percutaneous endoscopic gastrostomy placement. RECOMMENDATIONS: We will continue with the current cardiac care. Respiratory care will be continue d. Monitor on telemetry. Dictated By: BRENTON SAVAGE/ALYSON Conf#: [id number] DID#: [id number] CC: RAMY DOMINGUEZ DO;*EndCC*
--- NOTE | 2016-10-21 11:26 | DS ---
DATE OF ADMISSION: 09/29/2016 DATE OF DISCHARGE: HOSPITAL COURSE: This is a 56-year-old male with a past medical history of COPD, history of hypercap jaxon chronic respiratory failure, history of hypertension, coronary artery disease, paroxysmal atrial fibrillation, history of anemia, GERD, bipolar disorder who was admitted to [facility] on 09/29/2016 with hypercapnic respiratory failure. The patient was subsequently intubated in the emergency room, and transferred over to the intensive care unit for evaluation. In terms of th e patient's hypoxemic respiratory failure, etiology was felt to be secondary to pneumonia. The haider ent had a prolonged course where he was seen by infectious disease, Dr. Brown, wrist closer, Dr. Marina cesar. The patient completed a 2-week course of antibiotic therapy, however, failed multiple weani ng attempts and was unable to be weaned. As a result the patient was eventually trached and pegged and transferred to the telemetry. While on telemetry, the patient has been clinically stable. He h as been receiving continuous antibiotic therapy, but is clinically improving. The patient has been more alert and is able to follow commands. Currently, at this time, the patient will be transferred to [facility] for continued care and weaning. The patient also had other medical pr oblems during the hospital course including diastolic heart failure, bipolar disorder, anemia, coron sohail artery disease, azotemia, hypertension. The patient was medically managed, was also given diure tic therapy for his acute diastolic heart failure and has clinically improved. The patient has had a persistent leukocytosis which was felt to multifactorial due to underlying steroids and infection. The patient's leukocytosis has been clinically improving and steroids have been deescalated. [facility]opathy that is clinically improved with the hospital course. Currently, at the time of transfer, the patient is stable, in no acute distress. FINAL DIAGNOSES: 1. Ventilator-dependent respiratory failure secondary to chronic obstructive pulmonary disease exac erbation, pneumonia, status post tracheostomy. 2. Acute diastolic heart failure, clinically improving. 3. Sepsis secondary to pneumonia. Patient completing antibiotic course. 4. Leukocytosis secondary to sepsis, steroids. 5. Acute encephalopathy. Etiology is toxic metabolic. 6. History of bipolar disorder. 7. Anemia. 8. History of coronary artery disease. 9. Azotemia. 10. Hypertension. 11. Dysphagia status post PEG. FINAL MEDICATIONS: Please see reconciliation list. CONDITION ON DISCHARGE: At time of transfer, the patient is stable, in no acute distress. Dictated By: RAMY PERRY/ALYSON Conf#: [id number] DID#: [id number]
--- NOTE | 2016-10-21 12:11 | CONS ---
Date/Time of Note Date/Time of Note DATE: 10/21/16 TIME: 12:10 Assessment/Plan Assessment/Plan Additional Assessment/Plan Ventilator settings; AC of 16, tidal volume 500, PEEP of 5, 50% FiO2. Assessment recommendations; 1. Patient admitted for recurrent respiratory failure status post tracheostomy , remains ventilator dependent. 2. Obesity. 3. Likely underlying sleep apnea. 4. Severe COPD. 5. History of depression. 6. Hypertension. Continue current treatment. Decrease prednisone to 20 mg daily. Consultation Date/Type/Reason Admit Date/Time Sep 29, 2016 at 09:25 Type of Consultation: Pulmonary 24 HR Interval Summary Free Text/Dictation Patient condition remains tenuous at best. Has episodes of severe agitation to the point where the patient is trying to take his clothes off. Clarita; middle-aged male, on ventilator via tracheostomy awake and alert. Currently in no distress. Exam/Review of Systems Vital Signs Vitals Vital Signs Date Time Temp Pulse Resp B/P Pulse Ox O2 Delivery O2 Flow Rate FiO2 10/21/16 11:24 98.7 106 23 126/83 96 10/21/16 11:07 30 10/17/16 18:00 Mechanical Ventilator Intake and Output 10/20/16 10/20/16 10/21/16 15:00 23:00 07:00 Intake Total 780 ml 920 ml Output Total 2000 ml 1500 ml Balance -1220 ml -580 ml Exam HEENT exam is; supple neck, no JVD. No lymphadenopathy. Midline trachea. No thyromegaly. Tracheostomy placed with clean insertion site. Patient has fair dentition. Chest examination; diminished but clear breath sound. No added sound. S1-S2 audible, no murmurs. Abdomen examination; soft, no organomegaly. G-tube in place. Nontender. Bowel sounds audible. Extremity examination; no peripheral edema. Pulses 1+ bilaterally. RE[employer] INST[employer]ER examination; patient is awake and moves all 4 extremities on command. Results Result Diagram: 10/20/1662410/20/16624 Medications Medications Current Medications Acetaminophen (Tylenol Tab) 650 mg Q4H PRN PO MILD PAIN LEVEL 1-3 Last administered on 10/18/16t 03:07; Admin Dose 650 MG; Start 09/29/16 at 11:00 Acetaminophen (Tylenol Tab) 1,000 mg Q4H PRN PO PAIN LEVEL 4-6/10 Last administered on 10/19/16 09:43; Admin Dose 1,000 MG; Start 09/29/16 at 11:00 Amiodarone HCl (Cordarone) 200 mg DAILY PO Last administered on 10/21/16 09:26 ; Admin Dose 200 MG; Start 09/30/16 at 09:00 Ascorbic Acid (Vitamin C) 500 mg DAILY PO Last administered on 10/21/16 09:24; Admin Dose 500 MG; Start 09/30/16 at 09:00 Aspirin (Aspirin) 81 mg DAILY PO Last administered on 10/21/16 09:24; Admin Dose 81 MG; Start 09/30/16 at 09:00 Atorvastatin Calcium (Lipitor) 5 mg QHS PO Last administered on 10/20/16 22:23 ; Admin Dose 5 MG; Start 09/29/16 at 21:00 Bisacodyl (Dulcolax Supp) 10 mg DAILY PRN [place] CONSTIPATION; Start 09/29/16 at 11 :00 Docusate Sodium (Colace) 200 mg QHS PRN PO CONSTIPATION; Start 09/29/16 at 11: 00 Loratadine (Claritin) 10 mg DAILY PO Last administered on 10/21/16 09:24; Admin Dose 10 MG; Start 09/30/16 at 09:00 Al Hydrox/Mg Hydrox/Simethicone (Mag-Al Plus) 30 ml Q6H PO Last administered on 10/21/16 11:51; Admin Dose 30 ML; Start 09/29/16 at 11:00 Magnesium Hydroxide (Milk Of Mag) 30 ml DAILY PRN PO CONSTIPATION Last administered on 10/11/16 20:35; Admin Dose 30 ML; Start 09/29/16 at 11:00 Metoprolol Tartrate (Lopressor) 25 mg BID PO Last administered on 10/21/16 09: 25; Admin Dose 25 MG; Start 09/29/16 at 21:00 Montelukast Sodium (Singulair) 10 mg QHS PO Last administered on 10/20/16 22:27 ; Admin Dose 10 MG; Start 09/29/16 at 21:00 Multivitamins Therapeutic (Theragran) 1 tab DAILY PO Last administered on 09:24; Admin Dose 1 TAB; Start 09/30/16 at 09:00 Sodium Biphosphate/ Sodium Phosphate (Fleet Enema) 118 ml prn PRN [place] CONSTIPATION; Start 09/29/16 at 11:00 Eye Lubricant (Artificial Tears Oph) 1 drop TID BOTH EYES Last administered on 10/21/16 09:22; Admin Dose 1 DROP; Start 09/29/16 at 13:00 Lactobacillus Acidophilus (Florajen3 Capsule) 1 each BID PO Last administered on 10/19/16 21:00; Admin Dose 1 EACH; Start 09/29/16 at 21:00 Enoxaparin Sodium (Lovenox) 40 mg DAILY SC Last administered on 10/21/16 09:20 ; Admin Dose 40 MG; Start 09/30/16 at 09:00 Lansoprazole (Prevacid) 30 mg BID NGT Last administered on 10/21/16 09:24; Admin Dose 30 MG; Start 09/30/16 at 21:00 Lorazepam (Ativan) 0.5 mg Q8H PRN IV anxiety Last administered on 10/21/16 05: 52; Admin Dose 0.5 MG; Start 10/09/16 at 08:00 Quetiapine Fumarate (Seroquel) 25 mg QHS PRN NGT anxiety Last administered on 21:22; Admin Dose 25 MG; Start 10/11/16 at 21:00 Sodium Biphosphate/ Sodium Phosphate (Fleet Enema) 133 ml DAILY PRN [place] CONSTIPATION; Start 10/11/16 at 08:30 Betamethasone/ Clotrimazole (Lotrisone Cr) 1 applic BID TOP Last administered on 10/21/16 09:22; Admin Dose 1 APPLIC; Start 10/11/16 at 14:00 Nystatin (Nystatin Powder) 1 applic BID TOP Last administered on 10/21/16 09:21 ; Admin Dose 1 APPLIC; Start 10/11/16 at 15:00 Nystatin (Nystatin Susp) 5 ml QID PO Last administered on 10/21/16 09:25; Admin Dose 5 ML; Start 10/11/16 at 13:58 Furosemide (Lasix) 20 mg DAILY IV Last administered on 10/21/16 09:26; Admin Dose 20 MG; Start 10/14/16 at 09:00 Fentanyl (Duragesic 50 Mcg/Hr Patch) 1 patch Q72H TRANSDERM Last administered on 10/19/16 11:20; Admin Dose 1 PATCH; Start 10/16/16 at 11:00 Lorazepam (Ativan) 2 mg Q6H PO Last administered on 10/21/16 09:26; Admin Dose 2 MG; Start 10/16/16 at 10:00 Spironolactone (Aldactone) 25 mg DAILY@06 NGT Last administered on 10/21/16 05: 51; Admin Dose 25 MG; Start 10/16/16 at 12:30 Prednisone (Prednisone) 30 mg DAILY GTB Last administered on 10/21/16 09:24; Admin Dose 30 MG; Start 10/19/16 at 09:00 Acetaminophen/ Hydrocodone Bitart ([place] (5/325)) 1 tab Q6H PRN PO PAIN LEVEL 4 -7 Last administered on 10/21/16 05:52; Admin Dose 1 TAB; Start 10/18/16 at 12:00 Morphine Sulfate (morphine) 1 mg Q6H PRN IV PAIN LEVEL 7-10 Last administered on 10/20/16 23:49; Admin Dose 1 MG; Start 10/18/16 at 12:30 Valproate Sodium (Depakene Liquid Cup) 250 mg BID GTB Last administered on 09:23; Admin Dose 250 MG; Start 10/20/16 at 09:30 SHARON LLAMAS October 21, 2016 12:11
--- NOTE | 2016-10-21 22:19 | CONS ---
Date/Time of Note Date/Time of Note DATE: 10/21/16 TIME: 22:18 Assessment/Plan Assessment/Plan Chief Complaint/Hosp Course SUBJECTIVE: No acute changes. The patient is alert, looks comfortable. Denies pain, no fevers. VITAL SIGNS: Stable. INDWELLINGS: Trach, PEG, Estrella, PICC line placed on October 06. PHYSICAL EXAMINATION: GENERAL: This is an obese, well-developed, middle-aged white man who is awake, in no distress. HEENT: Head atraumatic, normocephalic. Sclerae anicteric. Buccal mucosa pink , dry. NECK: Supple. Tracheostomy present. CHEST: Rise symmetrical. Breath sounds diminished to bases. HEART: S1, S2. ABDOMEN: Soft, distended. Bowel sounds present. EXTREMITIES: With trace edema. ASSESSMENT: 1. Status post sepsis. 2. Status post pneumonia. 3. Chronic obstructive pulmonary disease. 4. Chronic respiratory failure. 5. Leukocytosis, likely steroid induced. 6. Bipolar disorder. 7. Morbid obesity. PLAN: The patient remains stable. Off abx, pending tx to [facility] Problems: Consultation Date/Type/Reason Admit Date/Time Sep 29, 2016 at 09:25 Initial Consult Date Type of Consultation: ID Exam/Review of Systems Vital Signs Vitals Vital Signs Date Time Temp Pulse Resp B/P Pulse Ox O2 Delivery O2 Flow Rate FiO2 10/21/16 11:24 98.7 106 23 126/83 96 10/21/16 11:07 30 10/17/16 18:00 Mechanical Ventilator Intake and Output 10/20/16 10/20/16 10/21/16 15:00 23:00 07:00 Intake Total 780 ml 920 ml Output Total 2000 ml 1500 ml Balance -1220 ml -580 ml Results Result Diagram: 10/20/16 0625 10/20/16 0625 NANCY MOREL NP October 21, 2016 22:18
[2016-10-22] MEDS ORDERED: predniSONE 20 MG TAB GTB SCH (09:00)
== END 2016-10-21 12:34 | DRG 4 ==
LOC: E/R 08:00 → ICU 09:25 → TEL 10-17 19:36
PROVIDERS: ADMIT Internal Medicine; ATTEND Internal Medicine
PROC: 5A1955Z Respiratory Ventilation, Greater than 96 Consecutive Hours (ICD-10-PCS; 2016-09-29)
PROC: 0BH17EZ Insertion of Endotracheal Airway into Trachea, Via Natural or Artificial Opening (ICD-10-PCS; 2016-09-29)
PROC: 5A09357 Assistance with Respiratory Ventilation, Less than 24 Consecutive Hours, Continuous Positive Airway Pressure (ICD-10-PCS; 2016-09-29)
PROC: 02HV33Z Insertion of Infusion Device into Superior Vena Cava, Percutaneous Approach (ICD-10-PCS; principal; 2016-10-06)
PROC: 0B110F4 Bypass Trachea to Cutaneous with Tracheostomy Device, Open Approach (ICD-10-PCS; 2016-10-15)
PROC: 0DH63UZ Insertion of Feeding Device into Stomach, Percutaneous Approach (ICD-10-PCS; 2016-10-15)
DX: A41.9 Sepsis, unspecified organism (principal); I50.31 Acute diastolic (congestive) heart failure; G92 Toxic encephalopathy; J18.9 Pneumonia, unspecified organism; E87.0 Hyperosmolality and hypernatremia; J96.21 Acute and chronic respiratory failure with hypoxia; I11.0 Hypertensive heart disease with heart failure; B37.0 Candidal stomatitis; J96.22 Acute and chronic respiratory failure with hypercapnia; J44.1 Chronic obstructive pulmonary disease with (acute) exacerbation; E87.1 Hypo-osmolality and hyponatremia; I25.10 Atherosclerotic heart disease of native coronary artery without angina pectoris; I48.0 Paroxysmal atrial fibrillation; F31.9 Bipolar disorder, unspecified; D64.9 Anemia, unspecified; R13.10 Dysphagia, unspecified; E83.39 Other disorders of phosphorus metabolism; E66.01 Morbid (severe) obesity due to excess calories; K21.9 Gastro-esophageal reflux disease without esophagitis; B37.2 Candidiasis of skin and nail; Z68.39 Body mass index [BMI] 39.0-39.9, adult
CPT/HCPCS: 31500; 36569; 36600; 71010; 76937; 80048; 80053; 80164; 82150; 82728; 82803; 83540; 83605; 83690; 83735; 83880; 84100; 84145; 84484; 85025; 85610; 85730; 87040; 87070; 87081; 93005; 93306; 94002; 94003; 94640; 94644; 94645; 94660; 94664; 94770; 96374; 96375; 96376; J1120; J1940; J0330; J0692; J1170; J1650; J1956; J2001; J2060; J2185; J2250; J2270; J2405; J2543; J2930; J3010; J7030; J7050; J7512

== ENCOUNTER 2016-12-01 09:05 | Inpatient (IN) | payer MEDICARE, OTHER ==
[~2016-12-01] VITALS: Ht 180.3 cm; Wt 94.8 kg
[2016-12-01] MEDS: ARTIFICIAL TEARS 15 ML OPH BOTH EYES SCH (02:13)
[2016-12-01] MEDS ORDERED: SODIUM CHLORIDE 0.9% 1L BAG IV* STA (09:49)
[2016-12-01] MEDS ORDERED: CEFEPIME 2GM/50 ML (PMX) 50 ML IVPB STA (09:49)
[2016-12-01] MEDS ORDERED: ENOX40DI2 SC (09:50)
[2016-12-01] MEDS ORDERED: FENT1PAT7 TD (09:52)
[2016-12-01] MEDS ORDERED: MAG360OR42 GTB (09:53)
[2016-12-01] MEDS ORDERED: POLY15DR25 OP (09:56)
[2016-12-01] MEDS ORDERED: ASPI-664 GTB (09:56)
[2016-12-01] MEDS ORDERED: ATOR10TA65 GTB (09:57)
[2016-12-01] MEDS ORDERED: FURO-110 GTB (09:58)
[2016-12-01] MEDS ORDERED: LANS30CA GTB (09:59)
[2016-12-01] MEDS ORDERED: LORA10TA3 GTB (10:00)
[2016-12-01] MEDS ORDERED: METO25TA4 GTB (10:01)
[2016-12-01] MEDS ORDERED: PRED20TA GTB (10:08)
[2016-12-01] MEDS ORDERED: SPIR25TA G-TUBE (10:09)
[2016-12-01] MEDS ORDERED: ACET-141 GTB (10:11)
[2016-12-01] MEDS ORDERED: ACET-2047 GTB ×2 (10:11→10:30)
[2016-12-01] MEDS ORDERED: HYDR-906 GTB (10:12)
[2016-12-01] MEDS ORDERED: ACET325T45 GTB (10:30)
[2016-12-01] MEDS ORDERED: OLAN5TAB5 GTB (10:31)
[2016-12-01] MEDS ORDERED: LORA-441 GTB (10:31)
[2016-12-01] MEDS ORDERED: VLP250480 GTB (10:33)
[2016-12-01] MEDS ORDERED: MULTI GTB (10:35)
[2016-12-01] MEDS ORDERED: AMIN887L6 GTB (10:35)
[2016-12-01] MEDS ORDERED: ASCO500C7 GTB (10:36)
[2016-12-01] MEDS ORDERED: DOCU-144 GTB (10:37)
[2016-12-01] MEDS ORDERED: MAGN400O4 GTB (10:38)
[2016-12-01] MEDS ORDERED: BISA10SU55 RC (10:40)
[2016-12-01] MEDS ORDERED: NA P135E RC (10:41)
[2016-12-01 10:50] LABS: ADD SCAN DIFF NO
--- NOTE | 2016-12-01 11:00 | RADRPT ---
PROCEDURE: Chest Radiograph. CLINICAL INDICATION: Sepsis TECHNIQUE: Single frontal chest radiograph. COMPARISON: Chest radiograph 09/24/2016 CT chest 11/12/2016 FINDINGS: A tracheostomy tube is in place. Heart size is within normal limits. Atherosclerotic calcification s are present. There are asymmetric increased lung markings throughout the right lung compared to t he left which appears similar compared to prior studies, and appear to be related to increase lucenc y on the left when compared to prior CT scans. No infiltrate or effusion is seen. The bones are intact. IMPRESSION: 1. No evidence of acute cardiopulmonary disease. 2. Atherosclerotic vascular disease. RPTAT: KK .Shilo Huynh MD, MD Date Time Electronically viewed and signed by .Shilo Huynh MD, MD on 12/01/2016 10:59 .B/
[2016-12-01 11:01] LABS: ABNORMAL IP MESSAGE 1; HEMATOCRIT 35.4 % (42.0-52.0); HEMOGLOBIN 10.5 g/dl (14.0-18.0); MEAN CORPUSCULAR HGB CONC 29.7 g/dl (32.0-37.0); MEAN CORPUSCULAR VOLUME 97.8 fl (82.0-101.0); MEAN PLATELET VOLUME 10.1 fl (7.4-10.4); PLATELET COUNT 212 10^3/UL (140-415); RED BLOOD COUNT 3.62 10^6/ul (4.70-6.10); RED CELL DISTRIBUTION WIDTH 14.8 % (11.5-14.5); WHITE BLOOD COUNT 19.9 10^3/ul (4.8-10.8)
[2016-12-01 11:17] LABS: INR 1.23; PROTIME 15.6 Sec (12.2-14.2); PT RATIO 1.2
[2016-12-01 11:18] LABS: PARTIAL THROMBOPLASTIN TIME 36.1 Sec (25.0-35.0)
[2016-12-01 11:21] LABS: ALANINE AMINOTRANSFERASE 35 IU/L (13-69); ALBUMIN 3.8 g/dl (3.3-4.9); ALBUMIN/GLOBULIN RATIO 1.46; ALKALINE PHOSPHATASE 142 IU/L (42-121); ASPARTATE AMINO TRANSFERASE 31 IU/L (15-46); BILIRUBIN,INDIRECT 0.3 mg/dl (0-1.1); BILIRUBIN,TOTAL 0.3 mg/dl (0.2-1.3); BLOOD UREA NITROGEN 24 mg/dl (7-20); CALCIUM 10.1 mg/dl (8.4-10.2); CHLORIDE 84 mmol/L (97-110); CREATININE 0.51 mg/dl (0.61-1.24); GLUCOSE 120 mg/dl (70-220); SODIUM 136 mmol/L (135-144); TOTAL PROTEIN 6.4 g/dl (6.1-8.1)
[2016-12-01 11:30] LABS: B-TYPE NATRIURETIC PEPTIDE 126 PG/ML (0-125)
[2016-12-01] MEDS ORDERED: morphine 10 MG INJ IV ONE (11:30)
[2016-12-01 11:48] LABS: ANION GAP 10 (8-16); TROPONIN-I < 0.012 ng/ml (0.00-0.12)
[2016-12-01 11:49] LABS: POTASSIUM 5.2 mmol/L (3.5-5.1)
[2016-12-01 11:50] LABS: CARBON DIOXIDE 47 mmol/L (21-31)
[2016-12-01 11:55] LABS: ADD UMIC YES; UR BILIRUBIN (Dip) NEGATIVE (NEGATIVE); UR BLOOD (Dip) NEGATIVE (NEGATIVE); UR CLARITY CLEAR (CLEAR); UR COLOR YELLOW (YELLOW); UR GLUCOSE (Dip) NEGATIVE (NEGATIVE); UR KETONES (Dip) TRACE (NEGATIVE); UR LEUKOCYTE ESTERASE (Dip) NEGATIVE (NEGATIVE); UR NITRITE (Dip) NEGATIVE (NEGATIVE); UR TOTAL PROTEIN (Dip) 1+ (NEGATIVE); UR UROBILINOGEN (Dip) 0.2 E.U./dL (0.1-1.0)
[2016-12-01 12:41] LABS: UR BACTERIA RARE; UR TRIPLE PHOSPHATE CRYSTAL FEW; URINE RBCS NONE SEEN /HPF (0)
--- NOTE | 2016-12-01 12:43 | RADRPT ---
PROCEDURE: CT Abdomen and Pelvis without contrast. CLINICAL INDICATION: Abdominal pain. Sepsis. TECHNIQUE: CT scan of the abdomen and pelvis without contrast was performed on a multi-slice CT [facility] without intravenous contrast. Coronal and sagittal reformatted images were obtained from the axial source images. Images were reviewed on a high-resolution PACS workstation. One or more of the following does reduction techniques were used: Automated exposure control; adjustment of the mA an d/or kV according to patient size; use of the aorta of reconstruction technique. The total exam CTD I equals 19.35 mGy and the total exam DLP equals 1180.04 mGy-cm. COMPARISON: None available. FINDINGS: There is stable cystic changes in the lingular segment. There is mild interstitial prominence in th e lung bases with diffuse bronchial wall thickening likely related to chronic bronchitis. No conflu ent or lobar infiltrate is seen. There is no pleural effusion. Heart size is normal, and there is no evidence of pericardial thickening or effusion. The liver, spleen, and pancreas are normal given limitations of a noncontrast CT examination. The g allbladder is normal. A gastrostomy tube is in place. The distal tip appears to be within the anterior abdominal wall, li dev within the fascia of the rectus abdominous musculature. There is a large amount of debris and gas within the left anterior abdominal wall rectus sheath as well as extending into the deep subcuta neous tissues and musculature of the left anterior abdominal wall and left anterior chest wall. Thi s finding likely represents tube feedings the liver into the abdominal and chest wall. The adrenal glands are normal. The kidneys without renal calculus or hydronephrosis. The aorta is of normal caliber. Atherosclerotic calcifications are present There is no retroperiton eal lymph node enlargment. There is no evidence of large or small bowel obstruction. There are a few scattered colonic diverti cula. There is no CT evidence of diverticulitis. There is no evidence of pneumoperitoneum. A norm al appendix is identified. No free fluid or fluid collections are identified. No inflammatory dagmar nges are seen. No enlarged pelvic sidewall lymph nodes are seen. The bladder is decompressed and poorly evaluated . No free fluid is identified. There are small bilateral inguinal hernias containing only fat There are mild superior endplate compression fractures of L1-L3, stable and demonstrate a chronic ap pearance.. IMPRESSION: 1. Large collection of debris and gas in the left anterior and lateral abdominal and chest wall, wh ich is secondary to a gastrostomy tube retracted into the abdominal wall, and subsequent tube feeds into this compartment musculature of the rectus sheath and extension into the oblique musculature. Recommend gastrostomy tube repositioning. 2. No other CT evidence of acute intra-abdominal or pelvic process. 3. Atherosclerotic vascular disease. 4. Diverticulosis without evidence of diverticulitis. RPTAT: KK .Shilo Huynh MD, MD Date Time Electronically viewed and signed by .Shilo Huynh MD, MD on 12/01/2016 12:43 .B/
[2016-12-01 12:44] LABS: LYMPHOCYTES # 0.6 10^3/ul (0.8-2.9); MONOCYTE # 1.4 10^3/ul (0.3-0.9); NEUTROPHIL # 11.1 10^3/ul (1.6-7.5)
[2016-12-01] MEDS ORDERED: CIPR500T4 PO (12:56)
[2016-12-01] MEDS ORDERED: PHEN-537 PO (12:56)
[2016-12-01] MEDS ORDERED: NAPR-688 PO (12:56)
[2016-12-01] MEDS ORDERED: HYDR-906 PO (12:56)
[2016-12-01] MEDS ORDERED: ACETAMINOPHEN 325 MG TAB PO PRN (13:30)
[2016-12-01] MEDS ORDERED: ONDANSETRON 4 MG INJ IV PRN (13:30)
[2016-12-01] MEDS ORDERED: CLINDAMYCIN 900 MG/D5W (PMX) 50 ML IVPB SCH (13:30)
[2016-12-01] MEDS ORDERED: HYDROmorphONE 2 MG/ML SYG IV STA (14:01)
[2016-12-01] MEDS ORDERED: ACETAMINOPHEN 500 MG TAB PO PRN (15:00)
[2016-12-01] MEDS ORDERED: LORAZEPAM 0.5 MG TAB GTB PRN (15:00)
[2016-12-01] MEDS ORDERED: NA PHOSPHATE/BIPHOS 133 ML ENEMA PR PRN (15:00)
[2016-12-01] MEDS ORDERED: BISACODYL 10 MG SUPP PR PRN (15:00)
[2016-12-01] MEDS ORDERED: MAGNESIUM HYDROXIDE 30ML CUP GTB PRN (15:00)
[2016-12-01] MEDS ORDERED: DOCUSATE SODIUM 100 MG CAP PO PRN (15:00)
[2016-12-01] MEDS ORDERED: ACETAMINOPHEN 325 MG TAB GTB PRN (15:00)
[2016-12-01 15:56] LABS: CALCIUM 9.4 mg/dl (8.4-10.2); CREATININE 0.52 mg/dl (0.61-1.24); POTASSIUM 5.4 mmol/L (3.5-5.1)
--- NOTE | 2016-12-01 16:13 | ERA ---
ER Documentation Chief Complaint Date/Time DATE: 12/01/16 TIME: 16:03 Chief Complaint SENT BY FACILITY FOR AP. NO N/V. NO C/O DIARRHEA. SENT FOR CT AND EVAL HPI 56-year-old male presenting with severe abdominal pain to the left of his feeding tube. He believes there is not enough room for the feedings. Is in severe pain and has been sweating. He has no fevers and chills has not been vomiting and has no constipation or diarrhea. ROS All systems reviewed and are negative except as per history of present illness. Medications Home Meds Reported Medications Na Phos,M-B/Na Phos,Di-Ba (ENEMA READY TO USE) 135 Ml Enema, 135 ML RC EVERY 48 HOURS Y for CONSTIPATION, ENEMA 12/01/16 Bisacodyl (Dulcolax) 10 Mg Supp.rect, 10 MG RC DAILY Y for CONSTIPATION, SUPP.RECT 12/01/16 Magnesium Hydroxide* (Milk Of Magnesia*) 400 Mg/5 Ml Oral.susp, 30 ML GTB DAILY Y for CONSTIPATION, ML 12/01/16 Docusate Sodium* (Colace*) 100 Mg Capsule, 200 MG GTB QHS Y for CONSTIPATION, # 30 CAP 12/01/16 Ascorbic Acid* (Vitamin C*) 500 Mg Capsule.sa, 500 MG GTB DAILY, CAP 12/01/16 Multivitamins* (Theragran*) 1 Tab Tab, 1 TAB GTB DAILY, TAB 12/01/16 Amino Acids/Protein Hydrolys (PRO-STAT AWC LIQUID) 887 Ml Liquid, 30 ML GTB DAILY SUGAR FREE 12/01/16 Valproic Acid* (Valproic Acid* Liq) 250 Mg/5 Ml Syrup, 250 MG GTB BID, ML 12/01/16 Lorazepam* (Ativan*) 0.5 Mg Tablet, 0.5 MG GTB Q6 Y for ANXIETY, #60 TAB 12/01/16 Olanzapine* (Zyprexa*) 5 Mg Tablet, 5 MG GTB DAILY, #30 TAB 12/01/16 Acetaminophen* (Acetaminophen*) 650 Mg Tablet, 650 MG GTB Q4 Y for FEVER GREATER THAN 100.6, #30 TAB 12/01/16 Acetaminophen* (Acetaminophen*) 325 Mg Tablet, 650 MG GTB TRACH CHANGE Y for PAIN AND OR ELEVATED TEMP, #30 TAB GIVE 30MIN PRIOR 12/01/16 Hydrocodone/Acetaminophen ([place] 5-325 Tablet) 1 Each Tablet, 1 EACH GTB Q6 Y for SEVERE PAIN LEVEL 7-10, TAB 12/01/16 Acetaminophen* (Acetaminophen*) 650 Mg Tablet, 650 MG GTB Q6H Y for MILD PAIN LEVEL 1-3, #30 TAB 12/01/16 Acetaminophen* (Acetaminophen*) 500 MG Extra Strength Tablet, 1000 MG GTB Q6H Y for MODERATE PAIN LEVEL 4-6, TAB 12/01/16 Spironolactone* (Aldactone*) 25 Mg Tablet, 25 MG G-TUBE DAILY, #30 TAB 12/01/16 Prednisone* (Prednisone*) 20 Mg Tab, 20 MG GTB DAILY, TAB 12/01/16 Metoprolol Tartrate* (Lopressor*) 25 Mg Tablet, 25 MG GTB BID, #60 TAB HOLD ID SBP LOWER THAN 120 OR HR LOWER THAN 60 12/01/16 Loratadine* (Loratadine*) 10 Mg Tablet, 10 MG GTB DAILY, #30 TAB 12/01/16 Lansoprazole* (Lansoprazole*) 30 Mg Capsule.dr, 30 MG GTB BID, CAP 12/01/16 Furosemide* (Lasix*) 20 Mg Tablet, 20 MG GTB DAILY, TAB 12/01/16 Atorvastatin Calcium (Atorvastatin Calcium) 10 Mg Tablet, 5 MG GTB QHS, #30 TAB 12/01/16 Aspirin (Low Dose Aspirin) 81 Mg Tablet.dr, 81 MG GTB DAILY, #30 TAB 12/01/16 Polyvinyl Alcohol (Tears Again) 15 Ml Drops, 1 DRP OP TID, BOTTLE 12/01/16 Mag Hydrox/Al Hydrox/Simeth (ALUM-MAG HYDROXIDE-SIMETH LIQ) 360 Ml Oral.susp, 30 ML GTB Q6 12/01/16 Fentanyl Patch* (Duragesic Patch*) 12 Mcg/Hr Transdermal Patch, 1 PATCH TD Q72H Y for PAIN, PATCH 50 MCG PATCH 12/01/16 Enoxaparin Sodium* (Enoxaparin Sodium*) 40 Mg/0.4 Ml Syringe, 40 MG SC DAILY, SYR 12/01/16 Discontinued Reported Medications Hydrocodone/Acetaminophen ([place] 10-325 Tablet) 1 Each Tablet, 1 EACH PO Q8H Y for PAIN LEVEL 7-9/10, TAB 09/23/16 Gabapentin* (Gabapentin*) 100 Mg Capsule, 200 MG PO TID, #180 CAP 09/23/16 Mag Hydrox/Al Hydrox/Simeth (Maalox Advanced Suspension) 355 Ml Oral.susp, 30 ML PO Q6H 09/23/16 Atorvastatin Calcium (Atorvastatin Calcium) 10 Mg Tablet, 5 MG PO QHS, #30 TAB 09/23/16 Boring-3 Fatty Acids (Fish Oil) 500 Mg Capsule, 1000 MG PO, CAP 09/23/16 Loratadine* (Loratadine*) 10 Mg Tablet, 10 MG PO DAILY, #30 TAB 09/23/16 Diphenhydramine-Zinc* Topical (Diphenhydramine-Zinc* Topical) 1%-28 Gm Cream..g. , 1 APPLIC TOP NEEDED, TUB 09/23/16 Dextran 70/Hypromellose/Pf (ARTIFICIAL TEARS DROPS) 1 Each Droperette, 1 EACH OP TID 09/23/16 Montelukast Sodium* (Singulair*) 10 Mg Tablet, 10 MG PO QHS, #30 TAB 09/23/16 Acetaminophen* (Tylenol*) 325 Mg Tablet, 650 MG PO Q4H Y for MILD PAIN LEVEL 1-3 , TAB 09/23/16 Albuterol Sulfate (Proair Respiclick) 90 Mcg Aer.pow.ba, 1 PUFF INHALATION Q4 Y for SHORTNESS OF BREATH, #1 BOTTLE 09/23/16 Metoprolol Tartrate* (Lopressor*) 25 Mg Tab, 25 MG PO BID for HOLD OF SBP<110, HR<60, TAB 09/02/14 Ipratropium [place]* (Atrovent*) 0.5 Mg/2.5 Ml Neb, 0.5 MG NEB Q4H Y for WHEEZING AND SOB, EA 09/02/14 Aspirin* (Aspirin* Chew) 81 Mg Tab.chew, 81 MG PO DAILY, TAB.CHEW 09/02/14 Lactobacillus Acidophilus (Acidophilus Lactobacillus) 1 Cap Capsule, 1 CAP PO BID 09/02/14 Ascorbic Acid (Vitamin C) 500 Mg Tab, 500 MG PO DAILY, TAB 05/28/14 Acetaminophen* (Tylenol*) 500 Mg Tab, 1000 MG PO Q4H Y for PAIN LEVEL -11/27, TAB 05/28/14 Pantoprazole* (Protonix*) 40 Mg Tablet.dr, 40 MG PO BID, TAB 05/28/14 Multivitamins* (Once Daily*) 1 Tab Tablet, 1 TAB PO DAILY, TAB 05/28/14 Magnesium Hydroxide* (Milk Of Magnesia*) 400 Mg/5 Ml Oral.susp, 30 ML PO DAILY Y for CONSTIPATION, ML 05/28/14 Na Phos,M-B/Na Phos,Di-Ba* (Fleet* Enema) 118 Ml Enema, 118 ML DC prn Y for CONSTIPATION, ENEMA 05/28/14 Bisacodyl* (Dulcolax*) 10 Mg/Supp.rect Supp.rect, 10 MG DC DAILY Y for CONSTIPATION, SUPP.RECT 05/28/14 Cranberry Extract (Cranberry) 425 Mg Capsule, 425 MG PO DAILY 05/28/14 Amiodarone Hcl* (Amiodarone Hcl*) 200 Mg Tablet, 200 MG PO DAILY, TAB 05/28/14 Docusate Sodium* (Colace*) 100 Mg Capsule, 200 MG PO QHS Y for CONSTIPATION, CAP 05/28/14 Allergies Allergies: Coded Allergies: vancomycin (Verified Allergy, Unknown, RASHES, 12/01/16) PMhx/Soc History of Surgery: Yes Anesthesia Reaction: No Hx Neurological Disorder: No Hx Respiratory Disorders: Yes (COPD) Hx Cardiac Disorders: Yes (HTN) Hx Psychiatric Problems: Yes (DEPRESSION) Hx Miscellaneous Medical Probl: Yes (HTN, CRACK COCAINE USE) Hx Alcohol Use: No Hx Substance Use: No Hx Tobacco Use: No Smoking Status: Never smoker Physical Exam Vitals Vital Signs Date Time Temp Pulse Resp B/P Pulse Ox O2 Delivery O2 Flow Rate FiO2 12/01/16 11:57 99.8 102 20 114/85 98 Mechanical Ventilator 12/01/16 11:30 113 16 99 40 12/01/16 09:23 99.6 115 20 105/64 98 12/01/16 09:20 125 17 98 40 Physical Exam Const: [] Moderate distress, diaphoretic appears uncomfortable Head: Atraumatic Eyes: Normal Conjunctiva ENT: Normal External Ears, Nose and Mouth. Neck: Full range of motion..~ No meningismus. Resp: Clear to auscultation bilaterally Cardio: Regular tachycardia, no murmurs Abd: Abdomen is soft however patient has which is severe pain surrounding his feeding tube to the left abdomen with no guarding or rebound.. Normal bowel sounds Skin: No petechiae or rashes Back: No midline or flank tenderness Ext: No cyanosis, or edema Neur: Awake and alert and oriented 3, no focal deficits Psych: Normal Mood and Affect Result Diagram: 12/01/16 1030 12/01/16 1030 Results 24 hrs Laboratory Tests Test 12/01/16 10:30 12/01/16 11:30 12/01/16 12:20 12/01/16 14:40 White Blood Count 19.910^3/ul Red Blood Count 3.6210^6/ul Hemoglobin 10.5g/dl Hematocrit 35.4% Mean Corpuscular Volume 97.8fl Mean Corpuscular Hemoglobin 29.0pg Mean Corpuscular Hemoglobin Concent 29.7g/dl Red Cell Distribution Width 14.8% Platelet Count 08863^3/UL Mean Platelet Volume 10.1fl Neutrophils % 56.0% Band Neutrophils % 34.0% Lymphocytes % 3.0% Monocytes % 7.0% Eosinophils % % Neutrophils # 11.110^3/ul Lymphocytes # 0.610^3/ul Monocytes # 1.410^3/ul Eosinophils # 10^3/ul Prothrombin Time 15.6Sec Prothrombin Time Ratio 1.2 INR International Normalized Ratio 1.23 Activated Partial Thromboplast Time 36.1Sec Sodium Level 136mmol/L Potassium Level 5.2mmol/L Chloride Level 84mmol/L Carbon Dioxide Level 47mmol/L Anion Gap 10 Blood Urea Nitrogen 24mg/dl Creatinine 0.51mg/dl Glucose Level 120mg/dl Lactic Acid Level 1.6mmol/L 1.1mmol/L 1.2mmol/L Calcium Level 10.1mg/dl Total Bilirubin 0.3mg/dl Direct Bilirubin 0.00mg/dl Indirect Bilirubin 0.3mg/dl Aspartate Amino Transf (AST/SGOT) 31IU/L Alanine Aminotransferase (ALT/SGPT) 35IU/L Alkaline Phosphatase 142IU/L Troponin I < 0.012ng/ml B-Type Natriuretic Peptide 126PG/ML Total Protein 6.4g/dl Albumin 3.8g/dl Globulin 2.60g/dl Albumin/Globulin Ratio 1.46 Urine Color YELLOW Urine Clarity CLEAR Urine pH 7.0 Urine Specific [place] 1.020 Urine Ketones TRACE Urine Nitrite NEGATIVE Urine Bilirubin NEGATIVE Urine Urobilinogen 0.2 E.U./dL Urine Leukocyte Esterase NEGATIVE Urine Microscopic RBC NONE SEEN/HPF Urine Microscopic WBC 0-2/HPF Urine Triple Phosphate Crystals FEW Urine Bacteria RARE Urine Hemoglobin NEGATIVE Urine Glucose NEGATIVE% Urine Total Protein 1+ Current Medications Medications (Trade) Dose Ordered Sig/Luis Route PRN Reason Start Time Stop Time Status Last Admin Dose Admin Sodium Chloride 3100 ml 3,100 ml BOLUS OVER 2 HOURS STAT IV* 12/01/16 09:49 12/01/16 09:52 DC 12/01/16 10:47 Cefepime HCl (Maxipime 2gm/50 ml (Pmx)) 50 ml @ 100 mls/hr ONCE STAT IVPB 12/01/16 09:49 12/01/16 10:18 DC 12/01/16 10:47 Morphine Sulfate 8 mg 8 mg ONCE ONCE IV 12/01/16 11:30 12/01/16 11:31 DC 12/01/16 11:41 Clindamycin HCl/ Dextrose (Cleocin 900 Mg/ D5W (Pmx)) 50 ml @ 50 mls/hr ONCE IVPB 12/01/16 13:30 12/01/16 14:29 DC 12/01/16 14:17 Ondansetron HCl (Zofran Inj) 4 mg ER BRIDGE PRN IV NAUSEA AND/OR VOMITING 12/01/16 13:30 12/02/16 13:29 Acetaminophen (Tylenol Tab) 650 mg ER BRIDGE PRN PO MILD PAIN/FEVER 12/01/16 13:30 12/02/16 13:29 Hydromorphone HCl (Dilaudid) 2 mg ONCE STAT IV 12/01/16 14:01 12/01/16 14:02 DC 12/01/16 14:17 Acetaminophen (Tylenol Tab) 650 mg Q6 PRN GTB PAIN AND OR ELEVATED TEMP 12/01/16 15:00 Acetaminophen (Tylenol Tab) 1,000 mg Q6H PRN PO MODERATE PAIN LEVEL 4-6 12/01/16 15:00 Ascorbic Acid (Vitamin C) 500 mg DAILY GTB 12/02/16 09:00 Aspirin (Halfprin) 81 mg DAILY PO 12/02/16 09:00 Atorvastatin Calcium (Lipitor) 5 mg QHS GTB 12/01/16 21:00 UNV Bisacodyl (Dulcolax Supp) 10 mg DAILY PRN DC CONSTIPATION 12/01/16 15:00 Docusate Sodium (Colace) 200 mg QHS PRN PO CONSTIPATION 12/01/16 15:00 Enoxaparin Sodium (Lovenox) 40 mg DAILY SC 12/02/16 09:00 UNV Fentanyl (Duragesic 12 Mcg/Hr Patch) 1 patch Q72H PRN TRANSDERM PAIN 12/01/16 15:00 UNV Acetaminophen/ Hydrocodone Bitart ([place] (5/325)) 1 tab Q6 PRN GTB SEVERE PAIN LEVEL 7-10 12/01/16 15:00 Lansoprazole (Prevacid) 30 mg BID GTB 12/01/16 21:00 UNV Loratadine (Claritin) 10 mg DAILY GTB 12/02/16 09:00 Lorazepam (Ativan) 0.5 mg Q6 PRN GTB ANXIETY 12/01/16 15:00 Al Hydrox/Mg Hydrox/Simethicone (Mag-Al Plus) 30 ml Q6 GTB 12/01/16 18:00 Magnesium Hydroxide (Milk Of Mag) 30 ml DAILY PRN GTB CONSTIPATION 12/01/16 15:00 Metoprolol Tartrate (Lopressor) 25 mg BID GTB 12/01/16 21:00 Multivitamins Therapeutic (Theragran) 1 tab DAILY GTB 12/02/16 09:00 Sodium Biphosphate/ Sodium Phosphate (Fleet Enema) 135 ml DAILY RESP THERAPY PRN DC CONSTIPATION 12/01/16 15:00 Olanzapine (Zyprexa) 5 mg DAILY GTB 12/02/16 09:00 UNV Eye Lubricant (Artificial Tears Oph) 1 drop TID BOTH EYES 12/01/16 21:00 UNV Prednisone (Prednisone) 20 mg DAILY GTB 12/02/16 09:00 UNV Valproate Sodium (Depakene Liquid Cup) 250 mg BID GTB 12/01/16 21:00 UNV Miscellaneous Information 30 ml 30 ml DAILY GTB 12/02/16 09:00 UNV Cefepime HCl (Maxipime 2gm/50 ml (Pmx)) 50 ml @ 100 mls/hr Q8 IVPB 12/01/16 22:00 UNV Procedures/MDM Sepsis secondary to feedings going into the abdominal and chest wall secondary to G-tube malpositioning. Likely became dislodged and partially displaced. Patient with a significant systemic reaction. He was initially treated with cefepime, added clindamycin for anaerobic and MRSA coverage as patient is allergic to vancomycin. He was given 30 cc/kg of IV fluid. He was given morphine twice for pain which barely alleviated his pain. He was then given 2 mg of Dilaudid which did help his pain. I spoke with Dr. Whaley, computer technical specialist who saw the patient in consult his last admission. He says he will manage the G-tube malpositionin. Also spoke with Dr. Pereira will be admitting the patient came to saw him in the emergency room. EKG interpretation: Sinus tachycardia, no ST elevations or depressions concerning for acute ischemia, normal axis and color television console monitor interpretation: Persistent sinus tachycardia without arrhythmia CT abdomen interpretation: Debris in feeding tube is placement in anterior abdominal and chest wall. No signs of intestinal obstruction, no free air, no fractures per Chest x-ray interpretation: I see no acute process, no pneumothorax, no infiltrates, no whitish time, no fractures Critical care time 46 minutes: This includes management of sepsis secondary to ongoing abdominal wall infection, careful fluid administration, immediate antibiotic administration, multiple visits the patient's bedside to reassess status, discussion with computer technical specialist, discussion with admitting doctor discussion with patient, chart reviewed per. This does not include any billable procedures Departure Diagnosis: Primary Impression: Sepsis Additional Impressions: Abdominal wall abscess Hyperkalemia Continuous severe abdominal pain Condition: Serious GEOFFREYDAVIEIGNACIOCLARITA SCHULTE Dec 01, 2016 16:12
[2016-12-01 16:51] VITALS: TEMP 98.7
[2016-12-01 17:03] LABS: AADO2 Arterial 73.9 mmHg (7.0-24.0); Allen Test ACCEPTAB; Arterial Base Excess 15.3 mmol/L (-3.0-3); Arterial COHb 0.4 % (0.0-3.0); Arterial Fraction of Oxyhgb 97.3 % (93.0-99.0); Arterial MetHb 0.4 % (0.0-1.5); Arterial Total Hemglobin 11.1 g/dl (12.0-18.0); MODE VENT - AC
[2016-12-01] MEDS: HYDROCODONE/APAP (5/325) TAB GTB PRN (17:30)
--- NOTE | 2016-12-01 18:23 | HP ---
DATE OF ADMISSION: 12/01/2016 CHIEF COMPLAINT: Abdominal pain, sepsis. HISTORY OF PRESENT ILLNESS: This is a 56-year-old male well known to me with a past medical history of ventilator-dependent respiratory failure, status post tracheostomy, history of COPD, history of dysphagia, status post PEG, history of coronary artery disease, hypertension, paroxysmal atrial fibr illation, anemia, GERD, bipolar disorder, who was brought in from a subacute facility due to abdomin al pain. Upon arrival in the emergency room, the patient had a CT scan of the abdomen and pelvis. It showed findings of a large collection of debris and gas in the left anterior and abdominal chest wall with gastrostomy tube in the compartment musculature of the rectus sheath. The patient in the emergency room had laboratory data drawn, which showed a white count of 19.9, hemoglobin 10.5, hemat ocrit of 35.4. The patient also had a potassium of 5.2. In the emergency room, he was given IV flu ids, IV antibiotics. The patient was given IV pain medications. He was seen by binitrotoluene operator, Dr. Whaley, who recommended to get a general surgery consult for the possibility of abdominal wall cellulitis. There were no reports of any hemoptysis, hemetemesis, or hematochezia. PAST MEDICAL HISTORY: As stated above, history of ventilator-dependent respiratory failure, history of dysphagia, status post PEG, history of COPD, history of coronary artery disease, history of hype rtension, history of bipolar disorder. PAST SURGICAL HISTORY: Status post trach, status post PEG. FAMILY HISTORY: Noncontributory. SOCIAL HISTORY: Previous history of drug use in the past, cigarette smoking. ALLERGIES: NO KNOWN DRUG ALLERGIES. REVIEW OF SYSTEMS: A 14-point review of systems was conducted. Pertinent positives stated in HPI; otherwise, negative. PHYSICAL EXAMINATION: VITAL SIGNS: Blood pressure is 135/77, respirations 16, pulse 70, temperature 98.6. HEENT: Head is normocephalic. Pupils are reactive to light. NECK: Supple. HEART: Regular rate. LUNGS: Show diminished breath sounds at base. ABDOMEN: Soft, positive tenderness with palpation. Positive gastrostomy tube noted. Positive volu ntary guarding. No rebound. EXTREMITIES: Negative for clubbing or cyanosis. No edema. DERMATOLOGIC: No rashes. MUSCULOSKELETAL: No joint effusions. NEUROLOGIC: No focal deficits. MEDICATIONS: The patient's medications have been reviewed. LABORATORY DATA: Shows a white count 19.9, hemoglobin 10.5, hematocrit 35.4, platelet count 212, a sodium 136, potassium 5.4, chloride 95, BUN 22, creatinine 0.52. Urinalysis shows no pyuria. Chest x-ray shows no acute findings. CT scan of abdomen and pelvis as stated in the HPI. ASSESSMENT AND PLAN: This is a 56-year-old male who presents with: 1. Sepsis, etiology secondary to abdominal wall cellulitis, possible abscess. Plan at this point i s to continue broad-spectrum antibiotics with cefepime and clindamycin. Will check blood cultures, lactic acid level, and procalcitonin level. Will place an ID consult for evaluation. We will also place a general surgery consult for evaluation and monitor closely. 2. Abdominal wall abscess with gastrostomy tube malposition. The patient was evaluated by GI with removal of G-tube. Will continue antibiotics as stated above. Place a general surgery consult for evaluation and monitor. 3. Ventilator-dependent respiratory failure. Vent settings have been reviewed. ABGs reviewed. Co ntinue to monitor. Place a pulmonary consult for evaluation. 4. Hyperkalemia. Etiology may be secondary to Aldactone effect and/or volume depletion. Plan at t his point is to discontinue Aldactone. Will continue IV fluids to increase salt deliveries to dista l nephrons and monitor closely. 5. Alkalosis. This is likely compensatory due to underlying hypercapnia. Will check an ABG. 6. Anemia. Will monitor hemoglobin and hematocrit levels. 7. History of hypertension. Continue current blood pressure regimen. 8. Coronary artery disease. Continue medical management. 9. Nutrition. The patient is currently n.p.o. Will consider starting TPN if unable to have a G-tu be placed in a timely manner. 10. Bipolar disorder with psychosis. Continue Depakote and Zyprexa. 11. History of paroxysmal atrial fibrillation, currently in sinus rhythm. 12. Gastrointestinal and deep venous thrombosis prophylaxis. Continue PPI and Lovenox. Please note I spent up to 25 minutes [id number] time with this patient. The patient is FULL CODE. Dictated By: RAMY PERRY/ALYSON Conf#: [id number] DID#: [id number]
--- NOTE | 2016-12-01 20:40 | CONS ---
DATE OF ADMISSION: 12/01/2016 DATE OF CONSULTATION: 12/01/2016 REASON FOR CONSULTATION: Abdominal pain. REQUESTING PHYSICIAN: Dr. Ramy Pereira. Thank you very much, Dr. Pereira, for your kind consultation. HISTORY OF PRESENT ILLNESS: The patient is a 56-year-old gentleman with a past medical history of v entilator dependent respiratory failure, status post tracheostomy, COPD, dysphagia, status post PEG, coronary artery disease, hypertension, paroxysmal atrial fibrillation, anemia, GERD, bipolar disord er who was brought in from his subacute facility secondary to abdominal pain. He was found to be af ebrile, however, he did have a leukocytosis of 19.9. His potassium was also elevated at 5.2. The p atient had a CT scan of the abdomen and pelvis which was done, which showed status dislodgement and malposition of his PEG tube into the abdominal wall with a large collection of debris and gas in the left anterior abdominal wall extending up into the chest wall. The PEG tube has since been removed by the jetting machine operator. The patient reports some improvement in his pain after the removal of t he PEG tube. On review of the old records, it appears that the PEG tube was placed about 6 weeks ag o. The patient can somewhat communicate and does understand. PAST MEDICAL HISTORY: As mentioned in the HPI. PAST SURGICAL HISTORY: As mentioned in HPI. SOCIAL HISTORY: The patient is a former drug abuser and smoker. ALLERGIES: NO KNOWN DRUG ALLERGIES. REVIEW OF SYSTEMS: A 14-point review of systems was conducted and was negative except for that whic h was mentioned in the HPI. PHYSICAL EXAMINATION: VITAL SIGNS: Temperature is 98.7, pulse is 119, respirations 22, blood pressure 100/71, O2 sat is 1 00% on mechanical ventilator. GENERAL APPEARANCE: He is an overweight male who is chronically debilitated and on the ve ntilator. He is, however, awake and can respond to questions. HEENT: Extraocular muscles are intact. NECK: Tracheostomy. CARDIOVASCULAR: S1, S2. Tachycardic. RESPIRATORY: Diminished breath sounds bilateral bases. ABDOMEN: Obese, but soft. There is, in the left upper quadrant, the old PEG tube site. The PEG galaviz s been removed by the jetting machine operator. There is some drainage and air that comes out at the site . Area is tender to palpation. There is no evidence of diffuse peritonitis. EXTREMITIES: Exhibit dependent edema bilaterally. LABORATORY WORK: White blood cell count is 19.8, hemoglobin is 10.5, platelet count is 212. Sodium is 136, potassium 5.4, chloride 95, bicarbonate 41, BUN 22, creatinine 0.52. Lactic acid is 1.2. INR is 1.23. ABG: pH of 7.356, pCO2 is 84, pO2 is 118, bicarbonate is 44. IMAGING STUDIES: CT scan of the abdomen and pelvis shows a large collection of debris and gas in th e left anterior and left lateral abdominal and chest wall secondary to a gastrostomy tube, which was retracted into the abdominal wall. Subsequent ____ musculature of the rectus sheath expansion of t he ____ musculature. RECOMMENDATIONS: This is a 56-year-old male with abdominal pain and sepsis and PEG tube malposition ed and abdominal wall abscess. The patient's symptoms are likely secondary to the PEG tube retracting into the abdominal wall and s ubsequent tube feeds into the abdominal wall. It is unclear how long this has been going on for. T he PEG tube has since been removed by the jetting machine operator. The patient does report some relief i n his abdominal pain following this. It is likely that if his condition does not improve that he wi ll need incision and drainage with possible debridement. However, this will be quite a morbid proce dure for this patient given his chronic medical problems. He does need to be resuscitated prior to surgical intervention if needed, along with correction of his electrolytes. In the meantime, I josh mmend continuing broad-spectrum intravenous antibiotics and aggressive IV fluid hydration with pain control as needed. The above was discussed with both the patient and the primary care team. Further recommendations wi ll be made based on the patient's clinical course. Dictated By: RENZO JASSO/ALYSON Conf#: [id number] DID#: [id number] CC: RAMY PEREIRA DO;*EndCC*
[2016-12-01] MEDS ORDERED: LANSOPRAZOLE 30 MG CAP GTB SCH (21:00)
[2016-12-01] MEDS ORDERED: METOPROLOL 25 MG TAB GTB SCH (21:00)
[2016-12-01] MEDS: DEXTROSE 5%-0.45% NACL 1,000 ML IV SCH (21:35)
[2016-12-01 22:30] VITALS: RESP 19
[2016-12-01 22:50] VITALS: BP 115/78; PULSE 129; RESP 18
[2016-12-01] MEDS: VALPROIC ACID LIQUID CUP 250 MG/5 ML CUP GTB SCH (23:13)
[2016-12-01] MEDS: ATORVASTATIN 10 MG TAB GTB SCH (23:14)
[2016-12-01] MEDS: AL HYDROX/MG HYDROX/SIMETH 30 ML CUP GTB SCH ×2 (23:20→23:21)
[2016-12-01] MEDS ORDERED: FENTAnyl PATCH 12 MCG/HR TRANSDERM PRN (23:30)
[2016-12-01 23:40] VITALS: Ht 180.3 cm; Wt 94.8 kg
[2016-12-02] VITALS (24 sets, daily range): BP systolic 97–147; BP diastolic 62–81; PULSE 123–144; RESP 14–24
[2016-12-02] MEDS: morphine 2 MG INJ IV PRN ×2 (00:36→05:41)
[2016-12-02] MEDS: CEFEPIME 2GM/50 ML (PMX) 50 ML IVPB SCH ×2 (02:13→05:18)
--- NOTE | 2016-12-02 02:38 | CONS ---
DATE OF ADMISSION: 12/01/2016 DATE OF CONSULTATION: 12/01/2016 TYPE OF CONSULTATION: Gastroenterology. REFERRING PHYSICIAN: Dr. Ramy Dominguez TIME: 2:00 p.m. HISTORY OF PRESENT ILLNESS: The patient is a 56-year-old gentleman with a history of respiratory fa ilure, on vent; COPD; dysphagia, had PEG tube placement 6 years ago. He developed abdominal pain an d was brought to the emergency room, where the patient was evaluated. CAT scan was done which showe d G-tube in the subcutaneous tissue, and there was a large collection of debris and gas in the anter ior abdominal wall and chest wall secondary to the feeding formula in the subcutaneous tissue. No n ausea, no vomiting, no GI bleeding. No fever, no chills. PAST MEDICAL HISTORY: Bipolar disorder, atrial fibrillation, anemia, status post tracheostomy and P EG, COPD, coronary artery disease and hypertension. PAST SURGICAL HISTORY: PEG and trach. SOCIAL HISTORY: The patient is a former drug abuser and smoker. ALLERGIES: NO KNOWN DRUG ALLERGIES. REVIEW OF SYSTEMS: Otherwise negative. PHYSICAL EXAMINATION: GENERAL: Overweight, in distress secondary to pain. CARDIOVASCULAR: No murmur, gallop or click. LUNGS: Air entry good, had tracheostomy. ABDOMEN: Morbidly obese. G-tube site was painful. No obvious pus or discharge seen. It was tende r. No redness also was identified. EXTREMITIES: 1+ edema. LABORATORY DATA: WBC 19.8. INR was 1.23. BUN was 22, creatinine was 0.5. IMAGING: CAT scan of the abdomen and pelvis showed G-tube in the subcutaneous tissue, and there was a collection of debris and gas, large collection, in the anterior abdominal wall and lateral side o f the abdominal wall and chest wall. IMPRESSION: 1. Buried bumper syndrome. Bumper was buried in the subcutaneous tissue with debris and gas in the left anterior and left lateral abdominal wall and chest. 2. Morbidly obese. 3. Ventilator-dependent respiratory failure. 4. Atrial fibrillation. 5. Bipolar disorder. 6. Chronic obstructive pulmonary disease. PLAN: 1. Remove the G-tube. Discussed with the patient, and after the removal of the G-tube, the patient 's pain reduced drastically by 80% to 90%. 2. Continue antibiotic. 3. Continue vent support and IV fluid. Will get also surgical consult and monitor WBC count closel y. Dictated By: JULIA ACKERMAN/ALYSON Conf#: [id number] DID#: [id number] CC: RAMY DOMINGUEZ DO;*EndCC*
[2016-12-02] MEDS: LORAZEPAM 2 MG INJ IV PRN ×3 (03:48→17:48)
[2016-12-02] MEDS ORDERED: HALOPERIDOL 5 MG INJ IM ONE (05:00)
[2016-12-02] MEDS ORDERED: DIGOXIN 500 MCG INJ IV ONE (05:00)
[2016-12-02] MEDS: AL HYDROX/MG HYDROX/SIMETH 30 ML CUP GTB SCH ×4 (05:03→22:19)
[2016-12-02] MEDS ORDERED: METOPROLOL 5 MG INJ IV ONE (06:30)
--- NOTE | 2016-12-02 07:26 | CONS ---
DATE OF ADMISSION: 12/01/2016 DATE OF CONSULTATION: 12/01/2016 TYPE OF CONSULTATION: Infectious Disease. REASON FOR CONSULTATION: Antibiotic management. HISTORY OF PRESENT ILLNESS: Dima Tucker is a 56-year-old male with numerous problems who comes in f or abdominal pain and is being seen for antibiotic management. The patient presents with severe abd ominal pain to the left of his G-tube. The patient has no fever or chills, but is sweating. His pa st problems include: 1. ALLERGY TO VANCOMYCIN. 2. COPD. 3. Hypertension. 4. Depression. 5. History of use of crack cocaine. On admission, his white count was 19.9, H and H 10.5 and 35.4, platelet count 212,000. BUN and crea tinine 24/0.5, glucose of 120. PAST MEDICAL HISTORY: Operations as outlined. FAMILY HISTORY: Noncontributory. SOCIAL HISTORY: Is as noted, he does not smoke or drink or abuse drugs, but he has a history of shira g abuse with crack cocaine. REVIEW OF SYSTEMS: As per HPI. PHYSICAL EXAMINATION: GENERAL: The patient is in moderate distress. He has diaphoresis, does not feel comfortable. VITAL SIGNS: Stable. Temperature max 99.8. SKIN: Without generalized rash. HEENT: Within normal limits. NECK: Supple. LYMPH NODES: None palpable. CHEST: Decreased breath sounds at the bases. HEART: Without murmur or gallop. ABDOMEN: Soft, nontender. He has severe pain surrounding his feeding tube to the left of the abdom en. No guarding. Normal bowel sounds. EXTREMITIES: Without cyanosis, clubbing, or edema. RECTAL AND GENITAL: Deferred. NEUROLOGIC: No focal neurological abnormalities. LABORATORY DATA: His urine is negative for nitrites and leukocyte esterase. His BUN and creatinine is ____22/0.52. CO2 of 41. Chest x-ray shows no evidence of acute cardiopulmonary disease. CT scan of the abdomen and pelvis s hows a large collection of debris and gas in the left anterior and lateral abdominal and chest gutierrez , which is secondary to the gastrostomy tube retracted into the abdominal wall. Subsequent tube fee dings into this compartment, musculature of the rectus sheath and extension into the oblique muscula ture. Recommend gastrostomy tube repositioning. There was no CT evidence of acute intra-abdominal or a pelvic process. Atherosclerotic vascular disease, diverticulosis without evidence of divertic ulitis. IMPRESSION AND PLAN: My impression is that this patient needs his G-tube either replaced or reposit ioned. The patient was placed on cefepime. He did receive clindamycin 1 dose. He needs to be seen by GI as noted. Blood cultures were done. Urinalysis and cultures were done. We will continue h im on this therapy. I will dictate my findings to Dr. Pereira. Dictated By: ARVIN NOVA MD, JD/ALYSON Conf#: [id number] DID#: [id number]
[2016-12-02 07:48] LABS: Allen Test ACCEPTAB; Arterial Base Excess 13.4 mmol/L (-3.0-3); Arterial COHb 0.6 % (0.0-3.0); Arterial Fraction of Oxyhgb 91.4 % (93.0-99.0); Arterial HCO3 41.7 mmol/L (22.0-26.0); Arterial MetHb 0.5 % (0.0-1.5); Arterial Total Hemglobin 10.6 g/dl (12.0-18.0); MODE VENT - AC
[2016-12-02] MEDS: predniSONE 20 MG TAB GTB SCH (08:55)
[2016-12-02] MEDS: LORATADINE 10 MG TAB GTB SCH (08:55)
[2016-12-02] MEDS: OLANZAPINE 5 MG TAB GTB SCH (08:55)
[2016-12-02] MEDS: MULTIVITAMINS THERAPEUTIC TAB GTB SCH (08:55)
[2016-12-02] MEDS: VALPROIC ACID LIQUID CUP 250 MG/5 ML CUP GTB SCH ×2 (08:55→21:00)
[2016-12-02] MEDS: ASCORBIC ACID 500 MG TAB GTB SCH (08:55)
[2016-12-02] MEDS: ASPIRIN (EC) 81 MG TAB PO SCH (08:56)
[2016-12-02] MEDS ORDERED: NON-FORMULARY/PATIENT OWN MED (Amino Acids/Protein Hydrolys (Pro-Stat Awc Liquid) 30 ML) GTB SCH (09:00)
--- NOTE | 2016-12-02 09:54 | PN ---
DATE: 12/02/2016 SUBJECTIVE: The patient was noted to be agitated overnight and tachycardic, with heart rates in the 140s and 130s, sinus rhythm. The patient was given Haldol, as well as Ativan, without significant change or improvement in his agitation. The patient was also given digoxin and IV metoprolol. The patient this morning is clinically stable, remains agitated and confused. The patient was unable to receive his psychotropic medications yesterday, as his G-tube was removed. No other events noted. OBJECTIVE: VITAL SIGNS: Blood pressure is 97/66, respirations 18, pulse 130, temperature 99.3. HEENT: Head is normocephalic. NECK: Supple. HEART: Tachycardic. LUNGS: Showed diminished breath sounds at the base. ABDOMEN: Soft, nontender to palpation. No rebound or guarding. EXTREMITIES: Negative for clubbing or cyanosis. No edema. DERMATOLOGIC: Positive ecchymoses and bruises on the abdomen. NEUROLOGIC: No obvious focal deficits. MEDICATIONS: The patient medications have been reviewed. LABORATORY DATA: Labs this morning are currently pending. ASSESSMENT AND PLAN: 1. Sepsis secondary to abdominal wall cellulitis and abscess. The patient remains on broad spectru m antibiotics. Will continue. Cultures have been sent, negative to date. Appreciate ID evaluation . Will follow up recommendations. Will also follow up with general surgery evaluation. 2. Abdominal wall abscess secondary to G-tube malposition. The patient was evaluated by GI, with r emoval of G-tube. The patient was also seen by general surgery. Greatly appreciate their help. Pl an for possible I and D once the patient is more clinically stable. 3. Ventilatory-dependent respiratory failure. Vent settings have been reviewed. ABG has been revi ewed. Continue to monitor. 4. Tachycardia. Etiology is secondary to agitation and possible pain. Continue the current pain r egimen. Psychotropic medications were adjusted. Monitor closely. 5. Bipolar disorder, psychosis and agitation. The patient is currently on Depakote and Zyprexa. W ill continue Zyprexa 5 mg IM, continue Ativan p.r.n. and will monitor closely. 6. Anemia. Continue to monitor hemoglobin and hematocrit levels. 7. Chronic hypercapnic respiratory failure, with compensation. Patient has an ABG of 7.35, with a pCO2 of 77 and bicarbonate of 41. The patient is appropriately compensated. 8. Mild hyperkalemia, likely secondary to Aldactone effect. Aldactone has been discontinued. Cont inue IV hydration and monitor. 9. Hypertension. Continue to monitor. Continue blood pressure regimen. 10. Coronary artery disease. Continue medical management. 11. Nutrition. Continue IV fluids. Consider TPN if G-tube is unable to be placed in a timely valencia er. 12. History of paroxysmal atrial fibrillation. Currently in sinus rhythm, as stated above. Tachyc ardic. Continue to monitor. 13. Gastrointestinal and deep venous thrombosis prophylaxis. Continue PPI and Lovenox. 14. Leuko cytosis. Etiology is secondary to sepsis. Continue antibiotic therapy, as stated above. Follow up CBC. Dictated By: RAMY DOMINGUEZ DO NR/NTS Conf#: [id number] DID#: [id number]
[2016-12-02] MEDS: ARTIFICIAL TEARS 15 ML OPH BOTH EYES SCH ×3 (09:59→22:18)
[2016-12-02] MEDS: METOPROLOL 5 MG INJ IV SCH ×4 (10:00→22:18)
[2016-12-02] MEDS: PANTOPRAZOLE 40 MG INJ IV SCH (10:00)
[2016-12-02] MEDS ORDERED: OLANZAPINE 10 MG VIAL IM ONE (10:00)
[2016-12-02] MEDS: ENOXAPARIN 40 MG/0.4 ML SYG SC SCH (10:01)
[2016-12-02 10:28] LABS: ADD SCAN DIFF NO
[2016-12-02 10:39] LABS: ABNORMAL IP MESSAGE 1; BASOPHILS % 0.2 % (0.0-2.0); EOSINOPHILS % 0.2 % (0.0-7.0); HEMATOCRIT 32.3 % (42.0-52.0); HEMOGLOBIN 9.4 g/dl (14.0-18.0); LYMPHOCYTES # 0.5 10^3/ul (0.8-2.9); LYMPHOCYTES % 4.1 % (15.0-51.0); MEAN CORPUSCULAR HGB CONC 29.1 g/dl (32.0-37.0); MEAN CORPUSCULAR VOLUME 99.7 fl (82.0-101.0); MEAN PLATELET VOLUME 10.1 fl (7.4-10.4); MONOCYTE # 0.8 10^3/ul (0.3-0.9); MONOCYTES % 6.2 % (0.0-11.0); NEUTROPHIL # 10.9 10^3/ul (1.6-7.5); NEUTROPHILS % 88.7 % (39.0-77.0); PLATELET COUNT 206 10^3/UL (140-415); RED BLOOD COUNT 3.24 10^6/ul (4.70-6.10); RED CELL DISTRIBUTION WIDTH 14.7 % (11.5-14.5); WHITE BLOOD COUNT 12.3 10^3/ul (4.8-10.8)
[2016-12-02 10:58] LABS: CREATININE 0.5 mg/dl (0.61-1.24); PHOSPHORUS 3.6 mg/dl (2.5-4.9); POTASSIUM 5.3 mmol/L (3.5-5.1)
[2016-12-02] MEDS: DEXTROSE 5%-0.45% NACL 1,000 ML IV SCH (14:05)
--- NOTE | 2016-12-02 15:47 | RADRPT ---
Vent Rate: 135 bpm RR Interval: 0 msec IA Interval: 150 msec QRS Duration: 70 msec QT Interval: 256 msec QTC Interval: 384 msec P-R-T [place]: 71 - 64 - 73 degrees Sinus tachycardia Septal infarct , age undetermined Abnormal ECG Electronically Signed By: Driss Babcock [id number]
[2016-12-02] MEDS ORDERED: ACETAMINOPHEN 650 MG SUPP PR PRN (16:00)
--- NOTE | 2016-12-02 16:43 | PN ---
Date/Time of Note Date/Time of Note DATE: 12/02/16 TIME: 16:39 Assessment/Plan Lines/Catheters IV Catheter Type (from Nrs): Peripheral IV Estrella in Place (from Nrs): No Assessment/Plan Assessment/Plan 56-year-old male with abdominal pain and sepsis and PEG tube malpositioned and abdominal wall abscess. * Leukocytosis is improved and is 12.3 * Continue broad-spectrum intravenous antibiotics and aggressive IV fluid hydration with pain control as needed. * He will need incision and drainage with possible debridement. However, this will be quite a morbid procedure for this patient given his chronic medical problems. * Await stabilization and medical clearance. The above was discussed with both the patient and the primary care team. Further recommendations will be made based on the patient's clinical course. Subjective 24 Hr Interval Summary Agitated and tachycardic. Denies abdominal pain. T-max 100.6. Exam/Review of Systems Vital Signs Vitals Vital Signs Date Time Temp Pulse Resp B/P Pulse Ox O2 Delivery O2 Flow Rate FiO2 12/02/16 16:31 144 12/02/16 15:28 100.6 21 147/81 95 12/02/16 14:02 35 12/01/16 22:50 Mechanical Ventilator Exam Free Text/Dictation GENERAL APPEARANCE: He is an overweight male who is chronically debilitated and on the ventilator. Agitated, awake and can respond to questions. NECK: Tracheostomy. CARDIOVASCULAR: S1, S2. Tachycardic. RESPIRATORY: Diminished breath sounds bilateral bases. ABDOMEN: Obese, but soft. There is, in the left upper quadrant, the old PEG tube site which is not draining. There is cellulitis which extends to the left flank and chest wall. No fluctuance. No crepitus. Area is tender to palpation. There is no evidence of diffuse peritonitis. EXTREMITIES: Exhibit dependent edema bilaterally. Results Result Diagram: 12/02/16 0946 12/02/16 0946 RENZO LAI MD Dec 02, 2016 16:43
[2016-12-02] MEDS: PIPER-TAZO 3.375 GM IV (PMX) 100 ML IVPB SCH (17:46)
--- NOTE | 2016-12-02 17:48 | PN ---
DATE: 12/02/2016 SUBJECTIVE: Patient is awake, confused and restless. He is in no distress, afebrile with a T-max y esterday 99.6, WBC today 12.3, H and H 9.4 and 32.3, platelets 206, neutrophils 88.7, no bands. BUN 23, creatinine 0.50. MICROBIOLOGY: Blood culture remains negative. Urine culture growing gram-negative rods and Enteroc occus species. INDWELLINGS: Trach, Estrella. ANTIMICROBIALS: The patient is on: 1. IV vancomycin. 2. Cefepime. PHYSICAL EXAMINATION: GENERAL: This is an obese, well-developed, ill-appearing, middle-aged man who is in no distress. HEENT: Head atraumatic, normocephalic. Sclerae anicteric. Buccal mucosa dry. NECK: Supple. Tracheostomy present. CHEST: Rise symmetrical. Breath sounds diminished. HEART: S1, S2. ABDOMEN: Obese, soft. G-tube site covered with dressing. EXTREMITIES: Without cyanosis. ASSESSMENT: 1. Sepsis. 2. Polymicrobial urinary tract infection. 3. G-tube malfunction, status post discontinued with cellulitis at the site. 4. Chronic respiratory failure. 5. Bipolar disorder. 6. History of oxacillin-sensitive Staphylococcus aureus bacteremia, treated. 7. Chronic obstructive pulmonary disease, status post pneumonia. PLAN: We are going to start patient on Zyvox or Zosyn for enterococcus species that he is growing i n the urine as PATIENT IS ALLERGIC TO VANCOMYCIN. He is also on multiple antipsychotic drugs that c ould have interaction with Zyvox. Will wait for final cultures and sensitivities. Follow gastroent erology recommendations. Dictated By: NANCY MOREL BLOCK MECHANIC for ARVIN NOVA MD NI/NTS Conf#: [id number] DID#: [id number] CC: RAMY DOMINGUEZ DO;*EndCC*
--- NOTE | 2016-12-02 19:31 | CONS ---
Date/Time of Note Date/Time of Note DATE: 12/02/16 TIME: 19:29 Assessment/Plan Assessment/Plan Additional Assessment/Plan IMPRESSION: 1. Buried bumper syndrome. Bumper was buried in the subcutaneous tissue with debris and gas in the left anterior and left lateral abdominal wall and chest. 2. Morbidly obese. 3. Ventilator-dependent respiratory failure. 4. Atrial fibrillation. 5. Bipolar disorder. 6. Chronic obstructive pulmonary disease. 7. Leukocytosis, trending downward. PLAN: 1. Remove the G-tube. Discussed with the patient, and after the removal of the G-tube, the patient's pain reduced drastically by 80% to 90%. 2. Continue antibiotic. 3. Continue vent support and IV fluid. Will get also surgical consult and monitor WBC count closely. 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: 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 FARMER 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, nl mental status, nl speech, nl strength Results Result Diagram: 12/02/16 0946 12/02/16 0946 Results 24 hrs Laboratory Tests Test 12/02/16 05:30 12/02/16 09:46 Blood Gas Specimen Source Blood arterial Arterial Blood Date Drawn 12/02/2016 6:00:21 AM Arterial Blood pH (Temp corrected) 7.351 Arterial Blood pCO2 (Temp correct) 77.1 H Arterial Blood pO2 (Temp corrected) 71.9 L Arterial Blood HCO3 41.7 *H Arterial Blood Base Excess 13.4 H Arterial Blood Oxygen Saturation 92.4 L Elijah Test ACCEPTAB Arterial Blood Gas Puncture Site Right Radial Arterial Blood Carboxyhemoglobin 0.6 Arterial Blood Methemoglobin 0.5 Blood Gas A-a O2 Differential 88.0 H Oxyhemoglobin Percent 91.4 L Total Hemoglobin 10.6 L Blood Gas Temperature 37.0 Blood Gas Respiration Rate 16.0 Blood Gas Actual Respiration Rate 21 Blood Gas Modality VENT - AC FiO2 35.0 Blood Gas Tidal Volume 500.0 Blood Gas Low PEEP Setting 5.0 Blood Gas Critical Value Read Back EDINSON RN Blood Gas Notified Whom MA Blood Gas Notified Time 12/02/2016 6:09:52 AM White Blood Count 12.3 #H Red Blood Count 3.24 L Hemoglobin 9.4 L Hematocrit 32.3 L Mean Corpuscular Volume 99.7 Mean Corpuscular Hemoglobin 29.0 Mean Corpuscular Hemoglobin Concent 29.1 L Red Cell Distribution Width 14.7 H Platelet Count 206 Mean Platelet Volume 10.1 Neutrophils % 88.7 H Lymphocytes % 4.1 L Monocytes % 6.2 Eosinophils % 0.2 Basophils % 0.2 Nucleated Red Blood Cells % 0.0 Neutrophils # 10.9 H Lymphocytes # 0.5 L Monocytes # 0.8 Eosinophils # 0.0 Basophils # 0.0 Nucleated Red Blood Cells # 0.0 Sodium Level 136 Potassium Level 5.3 H Chloride Level 91 L Carbon Dioxide Level 38 H Anion Gap 12 # Blood Urea Nitrogen 23 H Creatinine 0.50 L Glucose Level 83 Calcium Level 10.0 Phosphorus Level 3.6 Magnesium Level 2.0 Medications Medications Current Medications Acetaminophen (Tylenol Tab) 650 mg Q6 PRN GTB PAIN AND OR ELEVATED TEMP; Start 12/01/16 at 15:00 Acetaminophen (Tylenol Tab) 1,000 mg Q6H PRN PO MODERATE PAIN LEVEL 4-6; Start 12/01/16 at 15:00 Ascorbic Acid (Vitamin C) 500 mg DAILY GTB ; Start 12/02/16 at 09:00 Aspirin (Halfprin) 81 mg DAILY PO ; Start 12/02/16 at 09:00 Atorvastatin Calcium (Lipitor) 5 mg QHS GTB ; Start 12/01/16 at 21:00 Bisacodyl (Dulcolax Supp) 10 mg DAILY PRN TN CONSTIPATION; Start 12/01/16 at 15 :00 Docusate Sodium (Colace) 200 mg QHS PRN PO CONSTIPATION; Start 12/01/16 at 15: 00 Enoxaparin Sodium (Lovenox) 40 mg DAILY SC Last administered on 12/02/16t 10:01 ; Admin Dose 40 MG; Start 12/02/16 at 09:00 Fentanyl (Duragesic 12 Mcg/Hr Patch) 1 patch Q72H PRN TRANSDERM PAIN Last administered on 12/01/16 23:52; Admin Dose 1 PATCH; Start 12/01/16 at 23:30 Acetaminophen/ Hydrocodone Bitart (Odell (5/325)) 1 tab Q6 PRN GTB SEVERE PAIN LEVEL 7-10 Last administered on 12/01/16 17:30; Admin Dose 1 TAB; Start at 15:00 Loratadine (Claritin) 10 mg DAILY GTB ; Start 12/02/16 at 09:00 Lorazepam (Ativan) 0.5 mg Q6 PRN GTB ANXIETY Last administered on 12/01/16 17: 29; Admin Dose 0.5 MG; Start 12/01/16 at 15:00 Al Hydrox/Mg Hydrox/Simethicone (Mag-Al Plus) 30 ml Q6 GTB ; Start 12/01/16 at 18:00 Magnesium Hydroxide (Milk Of Mag) 30 ml DAILY PRN GTB CONSTIPATION; Start 12/01 at 15:00 Metoprolol Tartrate (Lopressor) 25 mg BID GTB ; Start 12/01/16 at 21:00; Status Future Hold Multivitamins Therapeutic (Theragran) 1 tab DAILY GTB ; Start 12/02/16 at 09:00 Olanzapine (Zyprexa) 5 mg DAILY GTB ; Start 12/02/16 at 09:00 Eye Lubricant (Artificial Tears Oph) 1 drop TID BOTH EYES Last administered on 12/02/16 14:05; Admin Dose 1 DROP; Start 12/01/16 at 21:00 Prednisone (Prednisone) 20 mg DAILY GTB ; Start 12/02/16 at 09:00 Valproate Sodium 250 mg 250 mg BID GTB ; Start 12/01/16 at 21:00 Dextrose/Sodium Chloride (D5-1/2ns) 1,000 ml @ 50 mls/hr Q20H IV Last administered on 12/01/16 21:35; Admin Dose 50 MLS/HR; Start 12/01/16 at 17:00 Pantoprazole (Protonix Iv) 40 mg DAILY IV Last administered on 12/02/16 10:00 ; Admin Dose 40 MG; Start 12/02/16 at 09:00 Metoprolol Tartrate (Lopressor) 2.5 mg Q4H IV Last administered on 12/02/16 17 :47; Admin Dose 2.5 MG; Start 12/02/16 at 09:00 Morphine Sulfate 2 mg 2 mg Q4H PRN IV MODERATE PAIN LEVEL 4-6; Start 12/02/16 at 09:00 Piperacillin Sod/ Tazobactam Sod (Zosyn 3.375gm/ 100 ml (Pmx)) 100 ml @ 200 mls /hr Q6 IVPB Last administered on 12/02/16 17:46; Admin Dose 200 MLS/HR; Start 12/02/16 at 18:00 Acetaminophen (Tylenol Supp) 650 mg Q6H PRN TN TEMP 100 AND ABOVE Last administered on 12/02/16 17:48; Admin Dose 650 MG; Start 12/02/16 at 16:00 Lorazepam (Ativan) 2 mg Q6H PRN IV agitation Last administered on 12/02/16 17: 48; Admin Dose 2 MG; Start 12/02/16 at 16:30 JULIA DE GUZMAN MD Dec 02, 2016 19:31
[2016-12-02] MEDS: ATORVASTATIN 10 MG TAB GTB SCH (21:00)
[2016-12-03] VITALS (28 sets, daily range): BP systolic 108–156; BP diastolic 65–89; PULSE 115–150; RESP 14–26
[2016-12-03] MEDS: PIPER-TAZO 3.375 GM IV (PMX) 100 ML IVPB SCH ×2 (00:50→05:14)
[2016-12-03] MEDS: METOPROLOL 5 MG INJ IV SCH ×6 (00:56→21:33)
[2016-12-03] MEDS: LORAZEPAM 2 MG INJ IV PRN ×2 (02:34→21:33)
[2016-12-03] MEDS: AL HYDROX/MG HYDROX/SIMETH 30 ML CUP GTB SCH ×4 (05:14→23:55)
[2016-12-03] MEDS: morphine 2 MG INJ IV PRN (06:37)
[2016-12-03 07:13] LABS: ADD SCAN DIFF NO
[2016-12-03 07:20] LABS: ABNORMAL IP MESSAGE 1; HEMATOCRIT 30.3 % (42.0-52.0); MEAN CORPUSCULAR HEMOGLOBIN 29.3 pg (29.0-33.0); MEAN CORPUSCULAR HGB CONC 29.7 g/dl (32.0-37.0); MEAN CORPUSCULAR VOLUME 98.7 fl (82.0-101.0); MEAN PLATELET VOLUME 9.7 fl (7.4-10.4); PLATELET COUNT 227 10^3/UL (140-415); RED BLOOD COUNT 3.07 10^6/ul (4.70-6.10); WHITE BLOOD COUNT 9.6 10^3/ul (4.8-10.8)
--- NOTE | 2016-12-03 07:41 | CONS ---
DATE OF ADMISSION: 12/01/2016 DATE OF CONSULTATION: 12/02/2016 TYPE OF CONSULTATION: Cardiology. REFERRING PHYSICIAN: Dr. Pereira REASON FOR CONSULTATION: Tachycardia. CHIEF COMPLAINT: Abdominal pain and sepsis. HISTORY OF PRESENT ILLNESS: Thank you for the patient's chart. Extensive review of the old c wilson, discussion with Dr. Pereira and staff. The patient is also known as he was admitted to the [facility]. His old chart records were reviewed. This is a 56-year-old gentleman, known to me, with a past medical history of ventilator-dependent respiratory failure, a history of paroxysmal atrial fib rillation in the past, currently remains in sinus, history of tracheostomy, COPD, and psych disorder , who was admitted with abdominal pain and sepsis. The patient has a PEG tube in place. Appears th at he has moved it, pulled it and apparently there is a large collection of debris and gas in the le ft anterior abdominal chest wall. The G-tube has been removed and he has been admitted for fu rther workup. The patient has been persistently tachycardic, heart rate has been around 130s to 140 s. Review of rhythm strip shows he has been in sinus rhythm. No episodes of atrial fibrillation. Patient denies any pain to me at this point. He wants to eat. He has refusing and pulling it , out, has been agitated and has also been refusing NG tube so far. There is no reported , no report of palpitations. PAST MEDICAL HISTORY: 1. Significant for atrial fibrillation, has remained in sinus rhythm. tolerated. 2. Respiratory failure, status post tracheostomy, vent dependent. 3. History of COPD, dysphagia, status post PEG placement. 4. History of hypertension. 5. History of psych disorder and bipolar disorder. PAST SURGICAL HISTORY: Tracheostomy and PEG placement. FAMILY HISTORY: No reported coronary artery disease. SOCIAL HISTORY: The patient is a previous smoker. ALLERGIES: NO REPORTED DRUG ALLERGIES. MEDICATIONS: As per medication reconciliation, personally reviewed. REVIEW OF SYSTEMS: As above mentioned. PHYSICAL EXAMINATION: VITAL SIGNS: Temperature 99.3, heart rate of 130, blood pressure 97/66, respirator rate of 18, satu rating 98%. HEENT: Normocephalic, atraumatic. Obese gentleman. Eyes, pupils are equal and round. NECK: Status post tracheostomy, on the vent. CARDIOVASCULAR: Tachycardic. PULMONARY: With no wheezes anteriorly. GASTROINTESTINAL: Obese. Mild tenderness to palpation. No rebound or guarding. EXTREMITIES: With trivial lower extremity edema. NEUROLOGIC: He is awake, appears to be alert. Oriented to person and place. PSYCHIATRIC: Appears to be anxious and agitated. LABORATORY: WBC of 19.9, hemoglobin 10.5, platelets of 212. Sodium 136, potassium 5.4, BUN of 22, creatinine of 0.54. CO2 of 47 yesterday and 41 today. ABG shows a pH of 7.35, pCO2 of 77, pO2 of 7 1, bicarbonate of 41. Chest x-ray shows no acute cardiopulmonary disease. CT of the abdomen and pe lvis shows a large collection of debris and gas in the left anterior and lateral abdomen and chest w all, could be secondary to gastrostomy tube retracted into the abdominal wall, with subsequent tube feeding into the compartment musculature of the rectus sheath musculature. EKG shows sinus ta chycardia, low voltage. Review of the old chart showed that the patient's most recent echocardiogra m done on 09/30/2016, which was personally reviewed, showed the ejection fraction about 55%, with a very suboptimal study. ASSESSMENT AND PLAN: 1. Tachycardia. Appears to be sinus tachycardia, mostly related to agitation, possibly beta blocke r withdrawal, anemia, pain, etc. 2. Abdominal wall cellulitis, and possible sepsis and abscess. 3. Hypoxemic respiratory failure, status post tracheostomy, with hypercapnic respiratory failure, s tatus post tracheostomy, vent dependent. 4. Electrolyte abnormality and hyperkalemia. 5. Metabolic alkalosis. 6. Anemia. 7. History of hypertension. Currently hypotensive. 8. History of paroxysmal atrial fibrillation. Currently remains in sinus rhythm. 9. Psych disorder and bipolar disorder with anxiety. 10. Dysphagia. Status post PEG and PEG tube malfunction. RECOMMENDATIONS: The patient anything p.o. at this point. He has been refusing the NG tube a s well, and does not appear to be tolerating it well anyway. I will place the patient on IV metopro lol around the clock as he can tolerate it. IV fluids were already initiated and started by Ngoc Pereira. Vent support will be continued. Antibiotic as per internal medicine and ID's recommend ations. Follow up with GI recommendations. Currently the NG tube has been removed. Will continue to monitor on telemetry and correct electrolytes as needed. Thank you for this referral. Will continue to follow along with you. Dictated By: BRENTON SAVAGE/ALYSON Conf#: [id number] DID#: [id number] CC: RAMY PEREIRA DO;*EndCC*
[2016-12-03 07:51] LABS: ALBUMIN 3.4 g/dl (3.3-4.9); ALBUMIN/GLOBULIN RATIO 1.09; BILIRUBIN,INDIRECT 0.2 mg/dl (0-1.1); BILIRUBIN,TOTAL 0.2 mg/dl (0.2-1.3); CALCIUM 10.1 mg/dl (8.4-10.2); CREATININE 0.51 mg/dl (0.61-1.24); MAGNESIUM 1.7 mg/dl (1.7-2.5); POTASSIUM 4.8 mmol/L (3.5-5.1); TOTAL PROTEIN 6.5 g/dl (6.1-8.1)
[2016-12-03 08:12] LABS: THYROID STIMULATING HORMONE 0.569 MIU/L (0.465-4.680)
[2016-12-03 08:22] LABS: LYMPHOCYTES # 0.5 10^3/ul (0.8-2.9); MONOCYTE # 0.9 10^3/ul (0.3-0.9); NEUTROPHIL # 7.8 10^3/ul (1.6-7.5)
--- NOTE | 2016-12-03 08:58 | PN ---
DATE: 12/03/2016 SUBJECTIVE: The patient remains agitated and tachycardic, with heart rates in the 140s. The patien t has been receiving Haldol and Zyprexa, as well as Ativan, with minimal improvement. The patient r emains on IV fluids. No other acute events noted. No hemoptysis, hematemesis or hematochezia. OBJECTIVE: VITAL SIGNS: Blood pressure 124/79, respirations 20, pulse is 140, temperature 99.5. HEENT: Head is normocephalic. NECK: Supple. HEART: Tachycardic. LUNGS: Showed diminished breath sounds at the base. ABDOMEN: Soft, nontender to palpation. No rebound or guarding. EXTREMITIES: Negative for clubbing or cyanosis. No edema. DERMATOLOGIC: No rashes. MUSCULOSKELETAL: Have no joint effusion. NEUROLOGIC: No change in exam. MEDICATIONS: The patient's medications have been reviewed. LABORATORY DATA: Shows sodium 140, potassium 4.8, BUN 18, creatinine 0.51. White count 9.6, hemogl obin 9.0, hematocrit 38.3, platelet count is 227. ASSESSMENT AND PLAN: 1. Sepsis secondary to abdominal wall cellulitis/abscess. The patient currently is on broad spectr um antibiotics. Will continue. Cultures have been reviewed. Will follow up with ID for further re commendations. 2. Abdominal abscess secondary to NG tube malposition. The patient's G-tube was removed. [facility] and general surgery's evaluation. Will follow up with further recommendations. 3. Nutrition. The patient is currently n.p.o. Will discuss with GI about placing a possible NG tub e to initiate tube feedings, or to start the patient on TPN. Will defer to GI, who will evaluate th e patient today. 4. Tachycardia. Etiology is multifactorial secondary to agitation. The patient has been followed by cardiology. Continue anti-psychotropic medications and monitor closely. 5. Ventilator-dependent respiratory failure. Vent settings have been reviewed. ABG was reviewed. Continue to monitor. 5. Bipolar disorder and psychosis. Continue Zyprexa IM and Ativan p.r.n. Once the patient's G-tube is placed, we can resume the patient on Depakote. 6. Anemia. Continue to monitor hemoglobin and hematocrit levels. 7. Chronic hypercapnic respiratory failure. The patient is currently compensated. Continue to mon itor. 8. Mild hypokalemia. Resolved. 9. Hypertension. Continue the current blood pressure regimen. 10. Coronary artery disease. Continue medical management. 11. History of paroxysmal atrial fibrillation. Currently in sinus rhythm. Continue to monitor. 12. Gastrointestinal and deep venous thrombosis prophylaxis. Continue PPI and Lovenox. 13. Leukocytosis secondary to sepsis. Improving. Continue to monitor. Dictated By: RAMY PERRY/ALYSON Conf#: [id number] DID#: [id number]
[2016-12-03] MEDS: ASPIRIN (EC) 81 MG TAB PO SCH (09:00)
[2016-12-03] MEDS: ARTIFICIAL TEARS 15 ML OPH BOTH EYES SCH ×3 (09:00→21:31)
[2016-12-03] MEDS: OLANZAPINE 5 MG TAB GTB SCH (09:00)
[2016-12-03] MEDS: MULTIVITAMINS THERAPEUTIC TAB GTB SCH (09:00)
[2016-12-03] MEDS: LORATADINE 10 MG TAB GTB SCH (09:00)
[2016-12-03] MEDS: predniSONE 20 MG TAB GTB SCH (09:00)
[2016-12-03] MEDS: ASCORBIC ACID 500 MG TAB GTB SCH (09:00)
[2016-12-03] MEDS: VALPROIC ACID LIQUID CUP 250 MG/5 ML CUP GTB SCH ×2 (09:00→21:00)
[2016-12-03] MEDS: DEXTROSE 5%-0.45% NACL 1,000 ML IV SCH (09:00)
--- NOTE | 2016-12-03 09:48 | PN ---
Date/Time of Note Date/Time of Note DATE: 12/03/16 TIME: 09:47 Assessment/Plan Lines/Catheters IV C[facility]ter Type ([facility] Peripheral IV Assessment/Plan Assessment/Plan 56-year-old male with abdominal pain and sepsis and PEG tube malpositioned and abdominal wall abscess. * Leukocytosis is improved * Continue broad-spectrum intravenous antibiotics and aggressive IV fluid hydration with pain control as needed. * He will need incision and drainage with possible debridement. However, this will be quite a morbid procedure for this patient given his chronic medical problems. * Await stabilization and medical clearance. * May want to consider follow-up CT scan in the meantime The above was discussed with both the patient and the primary care team. Further recommendations will be made based on the patient's clinical course. Subjective 24 Hr Interval Summary Denies abdominal pain. Remains tachycardic. T-max 100.6. Exam/Review of Systems Vital Signs Vitals Vital Signs Date Time Temp Pulse Resp B/P Pulse Ox O2 Delivery O2 Flow Rate FiO2 12/03/16 09:14 142 12/03/16 09:10 99.6 22 116/66 96 12/03/16 07:15 35 12/03/16 06:06 2.0 12/01/16 22:50 Mechanical Ventilator Intake and Output 12/02/16 12/02/16 12/03/16 15:00 23:00 07:00 Intake Total 750 ml Output Total 30 ml Balance 720 ml Exam Free Text/Dictation GENERAL APPEARANCE: He is an overweight male who is chronically debilitated and on the ventilator. Agitated, awake and can respond to questions. NECK: Tracheostomy. CARDIOVASCULAR: S1, S2. Tachycardic. RESPIRATORY: Diminished breath sounds bilateral bases. ABDOMEN: Obese, but soft. There is, in the left upper quadrant, the old PEG tube site which is not draining. There is significant cellulitis which extends to the left flank and chest wall. No fluctuance. No crepitus. Area is tender to palpation. There is no evidence of diffuse peritonitis. EXTREMITIES: Exhibit dependent edema bilaterally. Results Result Diagram: 12/03/16 0535 12/03/16 0605 RENZO LAI MD Dec 03, 2016 09:48
[2016-12-03] MEDS: PANTOPRAZOLE 40 MG INJ IV SCH (10:24)
[2016-12-03] MEDS: ENOXAPARIN 40 MG/0.4 ML SYG SC SCH (10:36)
[2016-12-03] MEDS: LINEZOLID 600 MG/D5W (PMX) 300 ML IVPB SCH ×2 (11:37→21:33)
--- NOTE | 2016-12-03 12:01 | CONS ---
Date/Time of Note Date/Time of Note DATE: 12/03/16 TIME: 11:58 Assessment/Plan Assessment/Plan Additional Assessment/Plan IMPRESSION: 1. Buried bumper syndrome. Bumper was buried in the subcutaneous tissue with debris and gas in the left anterior and left lateral abdominal wall and chest. 2. Morbidly obese. 3. Ventilator-dependent respiratory failure. 4. Atrial fibrillation. 5. Bipolar disorder. 6. Chronic obstructive pulmonary disease. 7. Leukocytosis, trending downward. 8. Cellulitis of the left side of the abdominal wall, mild hyperemia extending throughout the left side of the abdominal wall. There is no discharge from the G-tube site. G-tube site is completely closed PLAN: 1. Remove the G-tube. Discussed with the patient, and after the removal of the G-tube, the patient's pain reduced drastically by 80% to 90%. 2. Continue antibiotic. 3. Continue vent support and IV fluid. Will get also surgical consult and monitor WBC count closely. 4. We will repeat CAT scan of the abdomen to make sure cellulitis is healing. 5. Will pass NG tube tomorrow and resume feeding through the NG tube. I want to make sure the internal stoma is completely closed. Consultation Date/Type/Reason Admit Date/Time Dec 01, 2016 at 13:25 24 HR Interval Summary Constitutional: no complaints Exam/Review of Systems Vital Signs Vitals Vital Signs Date Time Temp Pulse Resp B/P Pulse Ox O2 Delivery O2 Flow Rate FiO2 12/03/16 11:19 99.3 130 22 116/66 97 12/03/16 07:15 35 12/03/16 06:06 2.0 12/01/16 22:50 Mechanical Ventilator Intake and Output 12/02/16 12/02/16 12/03/16 15:00 23:00 07:00 Intake Total 750 ml Output Total 30 ml Balance 720 ml Exam Constitutional: alert, oriented, well developed Respiratory: other (Patient is on vent) Cardiovascular: nl pulses, regular rate and rhythm Gastrointestinal: nl liver, spleen, non-tender, other (There is extensive redness involving the entire left side of the abdomen), soft Extremities: normal pulses Results Result Diagram: 12/03/16 0535 12/03/16 0605 Results 24 hrs Laboratory Tests Test 12/03/16 05:35 12/03/16 06:05 White Blood Count 9.6 # Red Blood Count 3.07 L Hemoglobin 9.0 L Hematocrit 30.3 L Mean Corpuscular Volume 98.7 Mean Corpuscular Hemoglobin 29.3 Mean Corpuscular Hemoglobin Concent 29.7 L Red Cell Distribution Width 15.0 H Platelet Count 227 Mean Platelet Volume 9.7 Neutrophils % 81.0 H Band Neutrophils % 5.0 Lymphocytes % 5.0 L Monocytes % 9.0 Eosinophils % Neutrophils # 7.8 H Lymphocytes # 0.5 L Monocytes # 0.9 Eosinophils # Sodium Level 140 Potassium Level 4.8 Chloride Level 93 L Carbon Dioxide Level 39 H Anion Gap 13 Blood Urea Nitrogen 18 Creatinine 0.51 L Glucose Level 88 Calcium Level 10.1 Phosphorus Level 3.6 Magnesium Level 1.7 Total Bilirubin 0.2 Direct Bilirubin 0.00 Indirect Bilirubin 0.2 Aspartate Amino Transf (AST/SGOT) 25 Alanine Aminotransferase (ALT/SGPT) 29 Alkaline Phosphatase 117 Total Protein 6.5 Albumin 3.4 Globulin 3.10 Albumin/Globulin Ratio 1.09 Thyroid Stimulating Hormone (TSH) 0.569 Medications Medications Current Medications Acetaminophen (Tylenol Tab) 650 mg Q6 PRN GTB PAIN AND OR ELEVATED TEMP; Start 12/01/16 at 15:00 Acetaminophen (Tylenol Tab) 1,000 mg Q6H PRN PO MODERATE PAIN LEVEL 4-6; Start 12/01/16 at 15:00 Ascorbic Acid (Vitamin C) 500 mg DAILY GTB ; Start 12/02/16 at 09:00 Aspirin (Halfprin) 81 mg DAILY PO ; Start 12/02/16 at 09:00 Atorvastatin Calcium (Lipitor) 5 mg QHS GTB ; Start 12/01/16 at 21:00 Bisacodyl (Dulcolax Supp) 10 mg DAILY PRN [place] CONSTIPATION; Start 12/01/16 at 15 :00 Docusate Sodium (Colace) 200 mg QHS PRN PO CONSTIPATION; Start 12/01/16 at 15: 00 Enoxaparin Sodium (Lovenox) 40 mg DAILY SC Last administered on 12/03/16 10:36 ; Admin Dose 40 MG; Start 12/02/16 at 09:00 Fentanyl (Duragesic 12 Mcg/Hr Patch) 1 patch Q72H PRN TRANSDERM PAIN Last administered on 12/01/16 23:52; Admin Dose 1 PATCH; Start 12/01/16 at 23:30 Acetaminophen/ Hydrocodone Bitart ([place] (5/325)) 1 tab Q6 PRN GTB SEVERE PAIN LEVEL 7-10 Last administered on 12/01/16 17:30; Admin Dose 1 TAB; Start at 15:00 Loratadine (Claritin) 10 mg DAILY GTB ; Start 12/02/16 at 09:00 Lorazepam (Ativan) 0.5 mg Q6 PRN GTB ANXIETY Last administered on 12/01/16 17: 29; Admin Dose 0.5 MG; Start 12/01/16 at 15:00 Al Hydrox/Mg Hydrox/Simethicone (Mag-Al Plus) 30 ml Q6 GTB ; Start 12/01/16 at 18:00 Magnesium Hydroxide (Milk Of Mag) 30 ml DAILY PRN GTB CONSTIPATION; Start 12/01 at 15:00 Metoprolol Tartrate (Lopressor) 25 mg BID GTB ; Start 12/01/16 at 21:00; Status Future Hold Multivitamins Therapeutic (Theragran) 1 tab DAILY GTB ; Start 12/02/16 at 09:00 Olanzapine (Zyprexa) 5 mg DAILY GTB ; Start 12/02/16 at 09:00 Eye Lubricant (Artificial Tears Oph) 1 drop TID BOTH EYES Last administered on 12/03/16 09:00; Admin Dose 1 DROP; Start 12/01/16 at 21:00 Prednisone (Prednisone) 20 mg DAILY GTB ; Start 12/02/16 at 09:00 Valproate Sodium 250 mg 250 mg BID GTB ; Start 12/01/16 at 21:00 Dextrose/Sodium Chloride (D5-1/2ns) 1,000 ml @ 50 mls/hr Q20H IV Last administered on 12/01/16 21:35; Admin Dose 50 MLS/HR; Start 12/01/16 at 17:00 Pantoprazole (Protonix Iv) 40 mg DAILY IV Last administered on 12/03/16 10:24 ; Admin Dose 40 MG; Start 12/02/16 at 09:00 Metoprolol Tartrate (Lopressor) 2.5 mg Q4H IV Last administered on 12/03/16 05 :14; Admin Dose 2.5 MG; Start 12/02/16 at 09:00 Morphine Sulfate (morphine) 2 mg Q4H PRN IV MODERATE PAIN LEVEL 4-6 Last administered on 12/03/16 06:37; Admin Dose 2 MG; Start 12/02/16 at 09:00 Acetaminophen (Tylenol Supp) 650 mg Q6H PRN [place] TEMP 100 AND ABOVE Last administered on 12/02/16 17:48; Admin Dose 650 MG; Start 12/02/16 at 16:00 Lorazepam 2 mg 2 mg Q6H PRN IV agitation Last administered on 12/03/16 02:34; Admin Dose 2 MG; Start 12/02/16 at 16:30 Ertapenem 1 gm/ Sodium Chloride 100 ml @ 200 mls/hr Q24H IVPB ; Start 12/03/16 at 12:00 Linezolid (Zyvox 600mg/D5W (Pmx)) 300 ml @ 300 mls/hr Q12 IVPB Last administered on 12/03/16 11:37; Admin Dose 300 MLS/HR; Start 12/03/16 at 10:30 JULIA DE GUZMAN MD Dec 03, 2016 12:01
[2016-12-03] MEDS: ERTAPENEM SODIUM 1 GM in SOD CHLORIDE 0.9% 100 ML IVPB SCH (14:32)
--- NOTE | 2016-12-03 17:51 | PN ---
DATE: 12/03/2016 CARDIOLOGY FOLLOWUP SUBJECTIVE: Discussed with the staff. Rhythm strip was reviewed. The patient remains in sinus tac hycardia. Still agitated. He is still n.p.o. Still remains in sinus tachycardia. No evidence of arrhythmia. MEDICATIONS: Reviewed. PHYSICAL EXAMINATION: VITAL SIGNS: Temperature 99.4, heart rate of 132, blood pressure 156/88, respiration rate of 20, sa turating 96%. HEENT: Normocephalic, atraumatic. Pupils equal, round. NECK: Tracheostomy on the vent. CARDIOVASCULAR: Tachycardic. PULMONARY: With no wheezes heard. GASTROINTESTINAL: Soft. No rebound. EXTREMITIES: With positive ____. NEUROLOGIC: Awake and alert. PSYCHIATRIC: Appears to be anxious and agitated. LABORATORY: WBC of 9.6, hemoglobin 9, platelets of 227, sodium 140, potassium 4.8, BUN of 18, creat inine 0.58, glucose of 88. TSH is 0.569. ASSESSMENT AND PLAN: 1. Sinus tachycardia, multifactorial, partially secondary to toby withdraw as well as agitation and anemia. 2. Hypoxemic respiratory failure, status post tracheostomy, vent dependent. 3. Status post abdominal wall cellulitis, abscess. 4. Dysphagia. 5. History of psychiatric disorder, bipolar disorder. 6. Anemia. 7. Chronic obstructive pulmonary disease. 8. Hypercapnic respiratory failure. 9. History of paroxysmal atrial fibrillation, currently remains in sinus rhythm with sinus tachycar carmen. RECOMMENDATIONS: Unfortunately, he still does not have any oral way. Beta-blockers will be resumed as soon as patient is able to take p.o. medications. Currently, has been n.p.o. Electrolytes jeffry l be corrected as needed. Continue to monitor on telemetry and respiratory care will be continued. Dictated By: BRENTON SAVAGE/ALYSON Conf#: [id number] DID#: [id number] CC: RAMY DOMINGUEZ DO;*EndCC*
[2016-12-03] MEDS: ATORVASTATIN 10 MG TAB GTB SCH (21:00)
--- NOTE | 2016-12-03 21:21 | CONS ---
Date/Time of Note Date/Time of Note DATE: 12/03/16 TIME: 21:19 Assessment/Plan Assessment/Plan Chief Complaint/Hosp Course SUBJECTIVE: No acute changes, awake, in no distress, afebrile MICROBIOLOGY: Blood culture remains negative. Urine culture growing VRE/E coli ESBL INDWELLINGS: Trach, Estrella. ANTIMICROBIALS: 1. Zyvox 2. Invanz PHYSICAL EXAMINATION: GENERAL: This is an obese, well-developed, ill-appearing, middle-aged man who is in no distress. HEENT: Head atraumatic, normocephalic. Sclerae anicteric. Buccal mucosa dry. NECK: Supple. Tracheostomy present. CHEST: Rise symmetrical. Breath sounds diminished. HEART: S1, S2. ABDOMEN: Obese, soft. G-tube site covered with dressing. EXTREMITIES: Without cyanosis. ASSESSMENT: 1. Sepsis. 2. Polymicrobial urinary tract infection. 3. G-tube malfunction, status post discontinued 4. Chronic respiratory failure. 5. Bipolar disorder. 6. History of oxacillin-sensitive Staphylococcus aureus bacteremia, treated. 7. Chronic obstructive pulmonary disease, status post pneumonia. PLAN: Stable, continue abx, pending swallow eval, GI rec-s [facility] staff Problems: Consultation Date/Type/Reason Admit Date/Time Dec 01, 2016 at 13:25 Initial Consult Date Type of Consultation: id Exam/Review of Systems Vital Signs Vitals Vital Signs Date Time Temp Pulse Resp B/P Pulse Ox O2 Delivery O2 Flow Rate FiO2 12/03/16 21:04 98.3 141 20 123/79 100 12/03/16 20:55 35 12/03/16 06:06 2.0 12/01/16 22:50 Mechanical Ventilator Intake and Output 12/02/16 12/02/16 12/03/16 15:00 23:00 07:00 Intake Total 750 ml Output Total 30 ml Balance 720 ml Results Result Diagram: 12/03/16 0535 12/03/16 0605 Results 24 hrs Laboratory Tests Test 12/03/16 05:35 12/03/16 06:05 White Blood Count 9.6 # Red Blood Count 3.07 L Hemoglobin 9.0 L Hematocrit 30.3 L Mean Corpuscular Volume 98.7 Mean Corpuscular Hemoglobin 29.3 Mean Corpuscular Hemoglobin Concent 29.7 L Red Cell Distribution Width 15.0 H Platelet Count 227 Mean Platelet Volume 9.7 Neutrophils % 81.0 H Band Neutrophils % 5.0 Lymphocytes % 5.0 L Monocytes % 9.0 Eosinophils % Neutrophils # 7.8 H Lymphocytes # 0.5 L Monocytes # 0.9 Eosinophils # Sodium Level 140 Potassium Level 4.8 Chloride Level 93 L Carbon Dioxide Level 39 H Anion Gap 13 Blood Urea Nitrogen 18 Creatinine 0.51 L Glucose Level 88 Calcium Level 10.1 Phosphorus Level 3.6 Magnesium Level 1.7 Total Bilirubin 0.2 Direct Bilirubin 0.00 Indirect Bilirubin 0.2 Aspartate Amino Transf (AST/SGOT) 25 Alanine Aminotransferase (ALT/SGPT) 29 Alkaline Phosphatase 117 Total Protein 6.5 Albumin 3.4 Globulin 3.10 Albumin/Globulin Ratio 1.09 Thyroid Stimulating Hormone (TSH) 0.569 Medications Medications Current Medications Acetaminophen (Tylenol Tab) 650 mg Q6 PRN GTB PAIN AND OR ELEVATED TEMP; Start 12/01/16 at 15:00 Acetaminophen (Tylenol Tab) 1,000 mg Q6H PRN PO MODERATE PAIN LEVEL 4-6; Start 12/01/16 at 15:00 Ascorbic Acid (Vitamin C) 500 mg DAILY GTB ; Start 12/02/16 at 09:00 Aspirin (Halfprin) 81 mg DAILY PO ; Start 12/02/16 at 09:00 Atorvastatin Calcium (Lipitor) 5 mg QHS GTB ; Start 12/01/16 at 21:00 Bisacodyl (Dulcolax Supp) 10 mg DAILY PRN [place] CONSTIPATION; Start 12/01/16 at 15 :00 Docusate Sodium (Colace) 200 mg QHS PRN PO CONSTIPATION; Start 12/01/16 at 15: 00 Enoxaparin Sodium (Lovenox) 40 mg DAILY SC Last administered on 12/03/16 10:36 ; Admin Dose 40 MG; Start 12/02/16 at 09:00 Fentanyl (Duragesic 12 Mcg/Hr Patch) 1 patch Q72H PRN TRANSDERM PAIN Last administered on 12/01/16 23:52; Admin Dose 1 PATCH; Start 12/01/16 at 23:30 Acetaminophen/ Hydrocodone Bitart ([place] (5/325)) 1 tab Q6 PRN GTB SEVERE PAIN LEVEL 7-10 Last administered on 12/01/16 17:30; Admin Dose 1 TAB; Start at 15:00 Loratadine (Claritin) 10 mg DAILY GTB ; Start 12/02/16 at 09:00 Lorazepam (Ativan) 0.5 mg Q6 PRN GTB ANXIETY Last administered on 12/01/16 17: 29; Admin Dose 0.5 MG; Start 12/01/16 at 15:00 Al Hydrox/Mg Hydrox/Simethicone (Mag-Al Plus) 30 ml Q6 GTB ; Start 12/01/16 at 18:00 Magnesium Hydroxide (Milk Of Mag) 30 ml DAILY PRN GTB CONSTIPATION; Start 12/01 at 15:00 Metoprolol Tartrate (Lopressor) 25 mg BID GTB ; Start 12/01/16 at 21:00; Status Future Hold Multivitamins Therapeutic (Theragran) 1 tab DAILY GTB ; Start 12/02/16 at 09:00 Olanzapine (Zyprexa) 5 mg DAILY GTB ; Start 12/02/16 at 09:00 Eye Lubricant (Artificial Tears Oph) 1 drop TID BOTH EYES Last administered on 12/03/16 14:32; Admin Dose 1 DROP; Start 12/01/16 at 21:00 Prednisone (Prednisone) 20 mg DAILY GTB ; Start 12/02/16 at 09:00 Valproate Sodium 250 mg 250 mg BID GTB ; Start 12/01/16 at 21:00 Dextrose/Sodium Chloride (D5-1/2ns) 1,000 ml @ 50 mls/hr Q20H IV Last administered on 12/01/16 21:35; Admin Dose 50 MLS/HR; Start 12/01/16 at 17:00 Pantoprazole (Protonix Iv) 40 mg DAILY IV Last administered on 12/03/16 10:24 ; Admin Dose 40 MG; Start 12/02/16 at 09:00 Metoprolol Tartrate (Lopressor) 2.5 mg Q4H IV Last administered on 12/03/16 14 :34; Admin Dose 2.5 MG; Start 12/02/16 at 09:00 Morphine Sulfate (morphine) 2 mg Q4H PRN IV MODERATE PAIN LEVEL 4-6 Last administered on 12/03/16 06:37; Admin Dose 2 MG; Start 12/02/16 at 09:00 Acetaminophen (Tylenol Supp) 650 mg Q6H PRN [place] TEMP 100 AND ABOVE Last administered on 12/02/16 17:48; Admin Dose 650 MG; Start 12/02/16 at 16:00 Lorazepam 2 mg 2 mg Q6H PRN IV agitation Last administered on 12/03/16 02:34; Admin Dose 2 MG; Start 12/02/16 at 16:30 Ertapenem 1 gm/ Sodium Chloride 100 ml @ 200 mls/hr Q24H IVPB Last administered on 12/03/16 14:32; Admin Dose 200 MLS/HR; Start 12/03/16 at 12:00 Linezolid (Zyvox 600mg/D5W (Pmx)) 300 ml @ 300 mls/hr Q12 IVPB Last administered on 12/03/16 11:37; Admin Dose 300 MLS/HR; Start 12/03/16 at 10:30 NANCY MOREL NP Dec 03, 2016 21:21
[2016-12-04] VITALS (23 sets, daily range): BP systolic 116–151; BP diastolic 60–97; PULSE 117–129; RESP 16–23
[2016-12-04] MEDS: morphine 2 MG INJ IV PRN (00:01)
[2016-12-04] MEDS: METOPROLOL 5 MG INJ IV SCH ×6 (01:34→22:50)
[2016-12-04] MEDS: DEXTROSE 5%-0.45% NACL 1,000 ML IV SCH (05:31)
[2016-12-04] MEDS: AL HYDROX/MG HYDROX/SIMETH 30 ML CUP GTB SCH ×3 (05:31→16:13)
[2016-12-04] MEDS: LORAZEPAM 2 MG INJ IV PRN ×3 (05:31→22:50)
[2016-12-04 06:24] LABS: ADD SCAN DIFF NO
[2016-12-04 06:27] LABS: ABNORMAL IP MESSAGE 1; BASOPHILS % 0.1 % (0.0-2.0); EOSINOPHILS % 0.2 % (0.0-7.0); HEMATOCRIT 29.3 % (42.0-52.0); HEMOGLOBIN 8.6 g/dl (14.0-18.0); LYMPHOCYTES # 0.6 10^3/ul (0.8-2.9); LYMPHOCYTES % 5.6 % (15.0-51.0); MEAN CORPUSCULAR HGB CONC 29.4 g/dl (32.0-37.0); MEAN CORPUSCULAR VOLUME 98.7 fl (82.0-101.0); MEAN PLATELET VOLUME 9.1 fl (7.4-10.4); MONOCYTE # 0.8 10^3/ul (0.3-0.9); MONOCYTES % 7.6 % (0.0-11.0); NEUTROPHIL # 8.6 10^3/ul (1.6-7.5); NEUTROPHILS % 83.5 % (39.0-77.0); PLATELET COUNT 194 10^3/UL (140-415); RED BLOOD COUNT 2.97 10^6/ul (4.70-6.10); RED CELL DISTRIBUTION WIDTH 14.9 % (11.5-14.5); WHITE BLOOD COUNT 10.3 10^3/ul (4.8-10.8)
[2016-12-04 07:08] LABS: CREATININE 0.48 mg/dl (0.61-1.24); MAGNESIUM 1.7 mg/dl (1.7-2.5); PHOSPHORUS 3.8 mg/dl (2.5-4.9); POTASSIUM 4.3 mmol/L (3.5-5.1)
[2016-12-04] MEDS: MULTIVITAMINS THERAPEUTIC TAB GTB SCH (09:00)
[2016-12-04] MEDS: ASCORBIC ACID 500 MG TAB GTB SCH (09:00)
--- NOTE | 2016-12-04 10:14 | CONS ---
Date/Time of Note Date/Time of Note DATE: 12/04/16 TIME: 10:10 Consult Date/Type/Reason Admit Date/Time Dec 01, 2016 at 13:25 Initial Consult Date Type of Consultation: neph Subjective The patient remains agitated and tachycardic, with heart rates in the 140s. The patient has been receiving Haldol and Zyprexa, as well as Ativan, with minimal improvement. The patient remains on IV fluids. no gtube planned currently. No other acute events noted. No hemoptysis, hematemesis or hematochezia. OBJECTIVE: HEENT: Head is normocephalic. NECK: Supple. HEART: Tachycardic. LUNGS: Showed diminished breath sounds at the base. ABDOMEN: Soft, nontender to palpation. No rebound or guarding. EXTREMITIES: Negative for clubbing or cyanosis. No edema. DERMATOLOGIC: No rashes. MUSCULOSKELETAL: Have no joint effusion. NEUROLOGIC: No change in exam. Objective Vital Signs Date Time Temp Pulse Resp B/P Pulse Ox O2 Delivery O2 Flow Rate FiO2 12/04/16 09:10 136 19 95 35 12/04/16 07:09 101.5 138/77 12/04/16 04:00 Mechanical Ventilator Trach Collar 12/03/16 06:06 2.0 Intake and Output 12/03/16 12/03/16 12/04/16 15:00 23:00 07:00 Intake Total 300 ml 500 ml 0 ml Output Total 200 ml 400 ml Balance 300 ml 300 ml -400 ml Results/Medications Result Diagram: 12/04/16 0600 12/04/16 0600 Results 24 hrs Laboratory Tests Test 12/04/16 06:00 White Blood Count 10.3 Red Blood Count 2.97 L Hemoglobin 8.6 L Hematocrit 29.3 L Mean Corpuscular Volume 98.7 Mean Corpuscular Hemoglobin 29.0 Mean Corpuscular Hemoglobin Concent 29.4 L Red Cell Distribution Width 14.9 H Platelet Count 194 Mean Platelet Volume 9.1 Neutrophils % 83.5 H Lymphocytes % 5.6 L Monocytes % 7.6 Eosinophils % 0.2 Basophils % 0.1 Nucleated Red Blood Cells % 0.0 Neutrophils # 8.6 H Lymphocytes # 0.6 L Monocytes # 0.8 Eosinophils # 0.0 Basophils # 0.0 Nucleated Red Blood Cells # 0.0 Sodium Level 139 Potassium Level 4.3 Chloride Level 93 L Carbon Dioxide Level 37 H Anion Gap 13 Blood Urea Nitrogen 20 Creatinine 0.48 L Glucose Level 93 Calcium Level 10.0 Phosphorus Level 3.8 Magnesium Level 1.7 Medications Current Medications Acetaminophen (Tylenol Tab) 650 mg Q6 PRN GTB PAIN AND OR ELEVATED TEMP; Start 12/01/16 at 15:00 Acetaminophen (Tylenol Tab) 1,000 mg Q6H PRN PO MODERATE PAIN LEVEL 4-6; Start 12/01/16 at 15:00 Ascorbic Acid (Vitamin C) 500 mg DAILY GTB ; Start 12/02/16 at 09:00 Aspirin (Halfprin) 81 mg DAILY PO ; Start 12/02/16 at 09:00 Atorvastatin Calcium (Lipitor) 5 mg QHS GTB ; Start 12/01/16 at 21:00 Bisacodyl (Dulcolax Supp) 10 mg DAILY PRN [place] CONSTIPATION; Start 12/01/16 at 15 :00 Docusate Sodium (Colace) 200 mg QHS PRN PO CONSTIPATION; Start 12/01/16 at 15: 00 Enoxaparin Sodium (Lovenox) 40 mg DAILY SC Last administered on 12/03/16 10:36 ; Admin Dose 40 MG; Start 12/02/16 at 09:00 Fentanyl (Duragesic 12 Mcg/Hr Patch) 1 patch Q72H PRN TRANSDERM PAIN Last administered on 12/01/16 23:52; Admin Dose 1 PATCH; Start 12/01/16 at 23:30 Acetaminophen/ Hydrocodone Bitart ([place] (5/325)) 1 tab Q6 PRN GTB SEVERE PAIN LEVEL 7-10 Last administered on 12/01/16 17:30; Admin Dose 1 TAB; Start at 15:00 Loratadine (Claritin) 10 mg DAILY GTB ; Start 12/02/16 at 09:00 Lorazepam (Ativan) 0.5 mg Q6 PRN GTB ANXIETY Last administered on 12/01/16 17: 29; Admin Dose 0.5 MG; Start 12/01/16 at 15:00 Al Hydrox/Mg Hydrox/Simethicone (Mag-Al Plus) 30 ml Q6 GTB ; Start 12/01/16 at 18:00 Magnesium Hydroxide (Milk Of Mag) 30 ml DAILY PRN GTB CONSTIPATION; Start 12/01 at 15:00 Metoprolol Tartrate (Lopressor) 25 mg BID GTB ; Start 12/01/16 at 21:00; Status Future Hold Multivitamins Therapeutic (Theragran) 1 tab DAILY GTB ; Start 12/02/16 at 09:00 Olanzapine (Zyprexa) 5 mg DAILY GTB ; Start 12/02/16 at 09:00 Eye Lubricant (Artificial Tears Oph) 1 drop TID BOTH EYES Last administered on 12/03/16 21:31; Admin Dose 1 DROP; Start 12/01/16 at 21:00 Prednisone (Prednisone) 20 mg DAILY GTB ; Start 12/02/16 at 09:00 Valproate Sodium 250 mg 250 mg BID GTB ; Start 12/01/16 at 21:00 Dextrose/Sodium Chloride (D5-1/2ns) 1,000 ml @ 50 mls/hr Q20H IV Last administered on 12/04/16 05:31; Admin Dose 50 MLS/HR; Start 12/01/16 at 17:00 Pantoprazole (Protonix Iv) 40 mg DAILY IV Last administered on 12/03/16 10:24 ; Admin Dose 40 MG; Start 12/02/16 at 09:00 Metoprolol Tartrate (Lopressor) 2.5 mg Q4H IV Last administered on 12/04/16 05 :31; Admin Dose 2.5 MG; Start 12/02/16 at 09:00 Morphine Sulfate (morphine) 2 mg Q4H PRN IV MODERATE PAIN LEVEL 4-6 Last administered on 12/04/16 00:01; Admin Dose 2 MG; Start 12/02/16 at 09:00 Acetaminophen (Tylenol Supp) 650 mg Q6H PRN [place] TEMP 100 AND ABOVE Last administered on 12/02/16 17:48; Admin Dose 650 MG; Start 12/02/16 at 16:00 Lorazepam 2 mg 2 mg Q6H PRN IV agitation Last administered on 12/04/16 05:31; Admin Dose 2 MG; Start 12/02/16 at 16:30 Ertapenem 1 gm/ Sodium Chloride 100 ml @ 200 mls/hr Q24H IVPB Last administered on 12/03/16 14:32; Admin Dose 200 MLS/HR; Start 12/03/16 at 12:00 Linezolid (Zyvox 600mg/D5W (Pmx)) 300 ml @ 300 mls/hr Q12 IVPB Last administered on 12/03/16t 21:33; Admin Dose 300 MLS/HR; Start 12/03/16 at 10:30 Assessment/Plan Chief Complaint/Hosp Course 1. Sepsis secondary to abdominal wall cellulitis/abscess. The patient currently is on broad spectrum antibiotics. Will continue. Cultures have been reviewed. Will follow up with ID for further recommendations. 2. Abdominal abscess secondary to NG tube malposition. The patient's G-tube was removed. Appreciate GI and general surgery's evaluation. Will follow up with further recommendations. 3. Nutrition. The patient is currently n.p.o. Will discuss with GI about placing a possible NG tube to initiate tube feedings, or to start the patient on TPN. Will defer to GI, who will evaluate the patient today. 4. Tachycardia. Etiology is multifactorial secondary to agitation. The patient has been followed by cardiology. Continue anti-psychotropic medications and monitor closely. 5. Ventilator-dependent respiratory failure. Vent settings have been reviewed. ABG was reviewed. Continue to monitor. 5. Bipolar disorder and psychosis. Continue Zyprexa IM and Ativan p.r.n. Once the patient's G-tube is placed, we can resume the patient on Depakote. 6. Anemia. Continue to monitor hemoglobin and hematocrit levels. 7. Chronic hypercapnic respiratory failure. The patient is currently compensated. Continue to monitor. 8. Mild hypokalemia. Resolved. 9. Hypertension. Continue the current blood pressure regimen. 10. Coronary artery disease. Continue medical management. 11. History of paroxysmal atrial fibrillation. Currently in sinus rhythm. Continue to monitor. 12. Gastrointestinal and deep venous thrombosis prophylaxis. Continue PPI and Lovenox. 13. Leukocytosis secondary to sepsis. Improving. Continue to monitor. 14. agitation- possible agitation of underlying psych condition now off oral psychotropics. may need ngtube for meds but may make more agitated. Problems: SCOTT DOHERTY MD Dec 04, 2016 10:14
--- NOTE | 2016-12-04 10:17 | CONS ---
Date/Time of Note Date/Time of Note DATE: 12/04/16 TIME: 10:16 Consultation Date/Type/Reason Admit Date/Time Dec 01, 2016 at 13:25 Date of Consultation: Dec 04, 2016 Type of Consultation: Pulmonary Hx of Present Illness Consult dictated [id number] Constitutional: no complaints Psychological: nl mood/affect, no complaints Social History Smoking Status: Former smoker Exam/Review of Systems Vital Signs Vitals Vital Signs Date Time Temp Pulse Resp B/P Pulse Ox O2 Delivery O2 Flow Rate FiO2 12/04/16 09:10 136 19 95 35 12/04/16 07:09 101.5 138/77 12/04/16 04:00 Mechanical Ventilator Trach Collar 12/03/16 06:06 2.0 Intake and Output 12/03/16 12/03/16 12/04/16 15:00 23:00 07:00 Intake Total 300 ml 500 ml 0 ml Output Total 200 ml 400 ml Balance 300 ml 300 ml -400 ml Results Result Diagram: 12/04/16 0600 12/04/16 0600 Results 24 hrs Laboratory Tests Test 12/04/16 06:00 White Blood Count 10.3 Red Blood Count 2.97 L Hemoglobin 8.6 L Hematocrit 29.3 L Mean Corpuscular Volume 98.7 Mean Corpuscular Hemoglobin 29.0 Mean Corpuscular Hemoglobin Concent 29.4 L Red Cell Distribution Width 14.9 H Platelet Count 194 Mean Platelet Volume 9.1 Neutrophils % 83.5 H Lymphocytes % 5.6 L Monocytes % 7.6 Eosinophils % 0.2 Basophils % 0.1 Nucleated Red Blood Cells % 0.0 Neutrophils # 8.6 H Lymphocytes # 0.6 L Monocytes # 0.8 Eosinophils # 0.0 Basophils # 0.0 Nucleated Red Blood Cells # 0.0 Sodium Level 139 Potassium Level 4.3 Chloride Level 93 L Carbon Dioxide Level 37 H Anion Gap 13 Blood Urea Nitrogen 20 Creatinine 0.48 L Glucose Level 93 Calcium Level 10.0 Phosphorus Level 3.8 Magnesium Level 1.7 Medications Medications Current Medications Acetaminophen (Tylenol Tab) 650 mg Q6 PRN GTB PAIN AND OR ELEVATED TEMP; Start 12/01/16 at 15:00 Acetaminophen (Tylenol Tab) 1,000 mg Q6H PRN PO MODERATE PAIN LEVEL 4-6; Start 12/01/16 at 15:00 Ascorbic Acid (Vitamin C) 500 mg DAILY GTB ; Start 12/02/16 at 09:00 Aspirin (Halfprin) 81 mg DAILY PO ; Start 12/02/16 at 09:00 Atorvastatin Calcium (Lipitor) 5 mg QHS GTB ; Start 12/01/16 at 21:00 Bisacodyl (Dulcolax Supp) 10 mg DAILY PRN [place] CONSTIPATION; Start 12/01/16 at 15 :00 Docusate Sodium (Colace) 200 mg QHS PRN PO CONSTIPATION; Start 12/01/16 at 15: 00 Enoxaparin Sodium (Lovenox) 40 mg DAILY SC Last administered on 12/03/16 10:36 ; Admin Dose 40 MG; Start 12/02/16 at 09:00 Fentanyl (Duragesic 12 Mcg/Hr Patch) 1 patch Q72H PRN TRANSDERM PAIN Last administered on 12/01/16 23:52; Admin Dose 1 PATCH; Start 12/01/16 at 23:30 Acetaminophen/ Hydrocodone Bitart ([place] (5/325)) 1 tab Q6 PRN GTB SEVERE PAIN LEVEL 7-10 Last administered on 12/01/16 17:30; Admin Dose 1 TAB; Start at 15:00 Loratadine (Claritin) 10 mg DAILY GTB ; Start 12/02/16 at 09:00 Lorazepam (Ativan) 0.5 mg Q6 PRN GTB ANXIETY Last administered on 12/01/16 17: 29; Admin Dose 0.5 MG; Start 12/01/16 at 15:00 Al Hydrox/Mg Hydrox/Simethicone (Mag-Al Plus) 30 ml Q6 GTB ; Start 12/01/16 at 18:00 Magnesium Hydroxide (Milk Of Mag) 30 ml DAILY PRN GTB CONSTIPATION; Start 12/01 at 15:00 Metoprolol Tartrate (Lopressor) 25 mg BID GTB ; Start 12/01/16 at 21:00; Status Future Hold Multivitamins Therapeutic (Theragran) 1 tab DAILY GTB ; Start 12/02/16 at 09:00 Olanzapine (Zyprexa) 5 mg DAILY GTB ; Start 12/02/16 at 09:00 Eye Lubricant (Artificial Tears Oph) 1 drop TID BOTH EYES Last administered on 12/03/16 21:31; Admin Dose 1 DROP; Start 12/01/16 at 21:00 Prednisone (Prednisone) 20 mg DAILY GTB ; Start 12/02/16 at 09:00 Valproate Sodium 250 mg 250 mg BID GTB ; Start 12/01/16 at 21:00 Dextrose/Sodium Chloride (D5-1/2ns) 1,000 ml @ 50 mls/hr Q20H IV Last administered on 12/04/16 05:31; Admin Dose 50 MLS/HR; Start 12/01/16 at 17:00 Pantoprazole (Protonix Iv) 40 mg DAILY IV Last administered on 12/03/16 10:24 ; Admin Dose 40 MG; Start 12/02/16 at 09:00 Metoprolol Tartrate (Lopressor) 2.5 mg Q4H IV Last administered on 12/04/16 05 :31; Admin Dose 2.5 MG; Start 12/02/16 at 09:00 Morphine Sulfate (morphine) 2 mg Q4H PRN IV MODERATE PAIN LEVEL 4-6 Last administered on 12/04/16 00:01; Admin Dose 2 MG; Start 12/02/16 at 09:00 Acetaminophen (Tylenol Supp) 650 mg Q6H PRN [place] TEMP 100 AND ABOVE Last administered on 12/02/16 17:48; Admin Dose 650 MG; Start 12/02/16 at 16:00 Lorazepam 2 mg 2 mg Q6H PRN IV agitation Last administered on 12/04/16 05:31; Admin Dose 2 MG; Start 12/02/16 at 16:30 Ertapenem 1 gm/ Sodium Chloride 100 ml @ 200 mls/hr Q24H IVPB Last administered on 12/03/16 14:32; Admin Dose 200 MLS/HR; Start 12/03/16 at 12:00 Linezolid (Zyvox 600mg/D5W (Pmx)) 300 ml @ 300 mls/hr Q12 IVPB Last administered on 12/03/16 21:33; Admin Dose 300 MLS/HR; Start 12/03/16 at 10:30 SHARON LLAMAS 17, 2017 10:17
[2016-12-04] MEDS: predniSONE 20 MG TAB GTB SCH (10:32)
[2016-12-04] MEDS: LORATADINE 10 MG TAB GTB SCH (10:32)
[2016-12-04] MEDS: OLANZAPINE 5 MG TAB GTB SCH (10:32)
[2016-12-04] MEDS: VALPROIC ACID LIQUID CUP 250 MG/5 ML CUP GTB SCH ×2 (10:32→21:00)
[2016-12-04] MEDS: ASPIRIN (EC) 81 MG TAB PO SCH (10:33)
--- NOTE | 2016-12-04 10:36 | CONS ---
DATE OF ADMISSION: 12/01/2016 DATE OF CONSULTATION: 12/04/2016 TIME: 10:10 a.m. REFERRING PHYSICIAN: Dr. Bora Pereira REASON FOR REFERRAL: Evaluation of chronic respiratory failure. HISTORY OF PRESENT ILLNESS: Mr. Tcuker is a 56-year-old white male who was transferred over from [facility] on the of this month with abdominal wall tenderness and distention. The patient wa s diagnosed with abdominal wall cellulitis and started on the appropriate antibiotic regimen. The ingrid gupta does have a history of chronic respiratory failure due to multiple admissions at [facility], subsequently requiring a tracheostomy and G-tube placement. The patient was also exhibiting waxing and waning mental status and has to be strained almost on a continuous basis. By the time I saw the patient the patient is on a ventilator via tracheostomy and is semi-responsive. PAST MEDICAL HISTORY: 1. End-stage chronic obstructive pulmonary disease, status post tracheostomy and G-tube placement. The patient remains totally ventilator-dependent and has been unable to be weaned off. 2. Bipolar disorder. 3. History of atrial fibrillation. 4. Reflux disease. 5. Hypertension. 6. History of coronary artery disease. MEDICATIONS: 1. The patient is currently on D5 half-normal saline at 50 mL per hour. 2. Invanz 1 gram q. 24h. 3. Zyvox 600 mg q.12h. 4. Acetaminophen on a p.r.n. basis. 5. DuoNeb q.6h. 6. The patient is on a fentanyl patch. 7. Claritin 10 mg daily. 8. Morphine on a p.r.n. basis. 9. Prednisone 20 mg daily. 10. Depakote 250 mg b.i.d. The patient's ventilator settings currently are AC of 16, tidal volume 500, PEEP of 5, 35% FIO2. ALLERGIES: VANCOMYCIN. SOCIAL HISTORY: The patient has a history of heavy smoking in the past. No history of alcohol or d rug abuse. SOCIAL HISTORY: Noncontributory. The patient has been on disability. REVIEW OF SYSTEMS: Currently unable to be obtained. PHYSICAL EXAMINATION: GENERAL: Middle-aged male, appears quite overweight, on a ventilator via tracheostomy, semi-respons feliz. VITAL SIGNS: Temperature is 101.5 degrees Fahrenheit, heart rate of 118 per minute, blood pressure 138/77, O2 saturation is 95% on current ventilator settings. HEENT EXAMINATION: Supple. JVD difficult to see. Pupils are mid size, reactive to light. No neck masses, no thyromegaly. Tracheostomy in place, with clean insertion site. CHEST EXAMINATION: Diminished, but clear breath sounds. No added sounds. HEART: S1, S2 audible. No murmurs. Regular rhythm. ABDOMEN: Soft. G-tube in place. No organomegaly. Bowel sounds audible. There is abdominal wall cellulitis around the G-tube insertion site. EXTREMITIES: No peripheral edema. Pulses 1+ bilaterally. SUPERVISOR SAMPLE PREPARATION EXAM: Patient is semi-responsive. Chest x-ray was reviewed from admission date, which is showing severe emphysematous changes with zbigniew dence of right lung fibrosis. Initial white cell count was 19.9 on 14 of this month. Today it is 10.3. Hemoglobin from today is 8.6, platelet count of 194. Sodium 139, potassium 4.3, chloride 93 , bicarbonate 37, glucose of 93. BUN 20, creatinine 0.4. ASSESSMENT: 1. Patient admitted for abdominal wall cellulitis, with interval improvement. 2. Chronic respiratory failure. The patient remains ventilator dependent. 3. End-stage chronic obstructive pulmonary disease. 4. Bipolar disorder. 5. History of paroxysmal atrial fibrillation. RECOMMENDATIONS: Continue current supportive care. Patient responding well to the current treatmen t regimen. Dictated By: SHARON DAVILA/ALYSON Conf#: [id number] DID#: [id number]
[2016-12-04] MEDS: PANTOPRAZOLE 40 MG INJ IV SCH (10:42)
[2016-12-04] MEDS: ARTIFICIAL TEARS 15 ML OPH BOTH EYES SCH ×3 (10:42→21:00)
[2016-12-04] MEDS: LINEZOLID 600 MG/D5W (PMX) 300 ML IVPB SCH ×2 (10:44→22:49)
[2016-12-04] MEDS: ENOXAPARIN 40 MG/0.4 ML SYG SC SCH (10:45)
--- NOTE | 2016-12-04 11:43 | PN ---
Date/Time of Note Date/Time of Note DATE: 12/04/16 TIME: 11:41 Assessment/Plan Lines/Catheters IV [facility] Type (from [facility]): Peripheral IV Assessment/Plan Assessment/Plan 56-year-old male with abdominal pain and sepsis and PEG tube malpositioned and abdominal wall abscess. * Leukocytosis is improved * Continue broad-spectrum intravenous antibiotics and aggressive IV fluid hydration with pain control as needed. * He will need incision and drainage with possible debridement. However, this will be quite a morbid procedure for this patient given his chronic medical problems. * Await stabilization and medical clearance. * May want to consider follow-up CT scan in the meantime The above was discussed with both the patient and the primary care team. Further recommendations will be made based on the patient's clinical course. Subjective 24 Hr Interval Summary Shaking in bed. Has not been receiving his Depakene due to no oral route. Remains tachycardic. T-max 101.5. Currently afebrile. Exam/Review of Systems Vital Signs Vitals Vital Signs Date Time Temp Pulse Resp B/P Pulse Ox O2 Delivery O2 Flow Rate FiO2 12/04/16 10:59 99.0 123 20 121/60 97 12/04/16 09:10 35 12/04/16 04:00 Mechanical Ventilator Trach Collar 12/03/16 06:06 2.0 Intake and Output 12/03/16 12/03/16 12/04/16 15:00 23:00 07:00 Intake Total 300 ml 500 ml 0 ml Output Total 200 ml 400 ml Balance 300 ml 300 ml -400 ml Exam Free Text/Dictation GENERAL APPEARANCE: He is an overweight male who is chronically debilitated and on the ventilator. Tremulous, agitated, awake and can respond to questions. NECK: Tracheostomy. CARDIOVASCULAR: S1, S2. Tachycardic. RESPIRATORY: Diminished breath sounds bilateral bases. ABDOMEN: Obese, but soft. There is, in the left upper quadrant, the old PEG tube site which is draining murky fluid. There is significant cellulitis and edema which extends to the left flank and chest wall. No fluctuance. No crepitus. Area is tender to palpation. There is no evidence of diffuse peritonitis. EXTREMITIES: Exhibit dependent edema bilaterally. Results Result Diagram: 12/04/16 0600 12/04/16 06 RENZO LAI MD Dec 04, 2016 11:43
[2016-12-04] MEDS: ERTAPENEM SODIUM 1 GM in SOD CHLORIDE 0.9% 100 ML IVPB SCH (15:35)
--- NOTE | 2016-12-04 20:47 | CONS ---
Date/Time of Note Date/Time of Note DATE: 12/04/16 TIME: 19:10 Assessment/Plan Assessment/Plan Chief Complaint/Hosp Course ID PROGRESS NOTE TOTAL ABX DAY #Zyvox + Invanz 24H INTERVAL SUMMARY * A/Alert restless on the Vent wants to sit up higher in bed -- able to communicate with mouthing words & noding yes & no * Obese M, pulling at gown, pulling at condom catheter, NGT - requires soft wrist restraints * Fevers today * MICROBIOLOGY: Blood culture remains negative. Urine culture growing VRE/E coli ESBL * INDWELLINGS: Trach PHYSICAL EXAMINATION: GENERAL: VSS, restless > Morbid obese HEENT: (+)NGT NECK: (+)Trach secure to Vent CHEST: Equal chest rise bilaterally, without dyspnea on observation / Vented HEART: Pulse RRR - NSR on tele ABDOMEN: (+)erythema large area left flank/left chest wall & ABD wall site -- GT removed : Normal male w/condom cath EXTREMITIES: Warm w/generalized dependent edema SKIN: Warm, dry ID ASSESSMENT: 56 yo obese M w/PMHx Psych-Bipolar, substance abuse (crack) admitted with: 1. Sepsis w/fevers > 101.5, tachycardia, leukocytosis 2/2 large area of LEFT sided ABD wall/Flank & Chest wall CELLULITIS * CT ABD: 1. Large collection of debris and gas in the left anterior and lateral abdominal and chest wall, which is secondary to a gastrostomy tube retracted into the abdominal wall, and subsequent tube feeds into this compartment musculature of the rectus sheath and extension into the oblique musculature. 2. G-tube malfunction, status post discontinued 3. Polymicrobial UTI -- Pt has condom catheter URINE CULTURE Final Organism 1 ESCHERICHIA COLI (ESBL) COLONY COUNT 30,000 - 40,000 CFU/ml . MULTI DRUG RESISTANT ORGANISM Organism 2 VANCO RESISTANT ENTEROCOCCUS COLONY COUNT 60,000 - 70,000 CFU/ml . MULTI DRUG RESISTANT ORGANISM 4. Chronic hypoxic respiratory failure -> Trach present 5. Chronic obstructive pulmonary disease, status post pneumonia 6. Congestive heart failure exacerbation. 7. Suspect obesity hypoventilation syndrome vs FAY 5. COPD 6. GERD 7. Hx of Candidiasis => Oral, opportunistic respiratory sputum pathogen, dermatomycosis back, groin 8. History of oxacillin-sensitive Staphylococcus aureus bacteremia, treated. INVASIVES: *NGT, Trach ABX ALLERGIES: Vanco IV DPOA [phone] * Patient has currently been able to make his own decisions CURRENT ABX: # #Zyvox + Invanz ID RECOMMENDATIONS: 1. Continue current ABX for severe ABD wall GT site infiltration infection/ cellulitis + UTI 2. Repeat BCx x 2 today -- spiking temps . . Problems: Consultation Date/Type/Reason Admit Date/Time Dec 01, 2016 at 13:25 Initial Consult Date 12/04/16 Type of Consultation: ID Exam/Review of Systems Vital Signs Vitals Vital Signs Date Time Temp Pulse Resp B/P Pulse Ox O2 Delivery O2 Flow Rate FiO2 12/04/16 17:30 136 16 97 35 12/04/16 15:28 101.4 116/73 12/04/16 04:00 Mechanical Ventilator Trach Collar 12/03/16 06:06 2.0 Intake and Output 12/03/16 12/03/16 12/04/16 15:00 23:00 07:00 Intake Total 300 ml 500 ml 0 ml Output Total 200 ml 400 ml Balance 300 ml 300 ml -400 ml Results Result Diagram: 12/04/16 0600 12/04/16 0600 Results 24 hrs Laboratory Tests Test 12/04/16 06:00 White Blood Count 10.3 Red Blood Count 2.97 L Hemoglobin 8.6 L Hematocrit 29.3 L Mean Corpuscular Volume 98.7 Mean Corpuscular Hemoglobin 29.0 Mean Corpuscular Hemoglobin Concent 29.4 L Red Cell Distribution Width 14.9 H Platelet Count 194 Mean Platelet Volume 9.1 Neutrophils % 83.5 H Lymphocytes % 5.6 L Monocytes % 7.6 Eosinophils % 0.2 Basophils % 0.1 Nucleated Red Blood Cells % 0.0 Neutrophils # 8.6 H Lymphocytes # 0.6 L Monocytes # 0.8 Eosinophils # 0.0 Basophils # 0.0 Nucleated Red Blood Cells # 0.0 Sodium Level 139 Potassium Level 4.3 Chloride Level 93 L Carbon Dioxide Level 37 H Anion Gap 13 Blood Urea Nitrogen 20 Creatinine 0.48 L Glucose Level 93 Calcium Level 10.0 Phosphorus Level 3.8 Magnesium Level 1.7 Medications Medications Current Medications Acetaminophen (Tylenol Tab) 650 mg Q6 PRN GTB PAIN AND OR ELEVATED TEMP; Start 12/01/16 at 15:00 Acetaminophen (Tylenol Tab) 1,000 mg Q6H PRN PO MODERATE PAIN LEVEL 4-6; Start 12/01/16 at 15:00 Ascorbic Acid (Vitamin C) 500 mg DAILY GTB ; Start 12/02/16 at 09:00 Aspirin (Halfprin) 81 mg DAILY PO ; Start 12/02/16 at 09:00 Atorvastatin Calcium (Lipitor) 5 mg QHS GTB ; Start 12/01/16 at 21:00 Bisacodyl (Dulcolax Supp) 10 mg DAILY PRN [place] CONSTIPATION; Start 12/01/16 at 15 :00 Docusate Sodium (Colace) 200 mg QHS PRN PO CONSTIPATION; Start 12/01/16 at 15: 00 Enoxaparin Sodium (Lovenox) 40 mg DAILY SC Last administered on 12/04/16 10:45 ; Admin Dose 40 MG; Start 12/02/16 at 09:00 Fentanyl (Duragesic 12 Mcg/Hr Patch) 1 patch Q72H PRN TRANSDERM PAIN Last administered on 12/01/16 23:52; Admin Dose 1 PATCH; Start 12/01/16 at 23:30 Acetaminophen/ Hydrocodone Bitart ([place] (5/325)) 1 tab Q6 PRN GTB SEVERE PAIN LEVEL 7-10 Last administered on 12/01/16 17:30; Admin Dose 1 TAB; Start at 15:00 Loratadine (Claritin) 10 mg DAILY GTB ; Start 12/02/16 at 09:00 Lorazepam (Ativan) 0.5 mg Q6 PRN GTB ANXIETY Last administered on 12/01/16 17: 29; Admin Dose 0.5 MG; Start 12/01/16 at 15:00 Al Hydrox/Mg Hydrox/Simethicone (Mag-Al Plus) 30 ml Q6 GTB ; Start 12/01/16 at 18:00 Magnesium Hydroxide (Milk Of Mag) 30 ml DAILY PRN GTB CONSTIPATION; Start 12/01 at 15:00 Metoprolol Tartrate (Lopressor) 25 mg BID GTB ; Start 12/01/16 at 21:00; Status Future Hold Multivitamins Therapeutic (Theragran) 1 tab DAILY GTB ; Start 12/02/16 at 09:00 Olanzapine (Zyprexa) 5 mg DAILY GTB ; Start 12/02/16 at 09:00 Eye Lubricant (Artificial Tears Oph) 1 drop TID BOTH EYES Last administered on 12/04/16 13:00; Admin Dose 1 DROP; Start 12/01/16 at 21:00 Prednisone (Prednisone) 20 mg DAILY GTB ; Start 12/02/16 at 09:00 Valproate Sodium 250 mg 250 mg BID GTB ; Start 12/01/16 at 21:00 Dextrose/Sodium Chloride (D5-1/2ns) 1,000 ml @ 50 mls/hr Q20H IV Last administered on 12/04/16 05:31; Admin Dose 50 MLS/HR; Start 12/01/16 at 17:00 Pantoprazole (Protonix Iv) 40 mg DAILY IV Last administered on 12/04/16 10:42 ; Admin Dose 40 MG; Start 12/02/16 at 09:00 Metoprolol Tartrate (Lopressor) 2.5 mg Q4H IV Last administered on 12/04/16 15 :37; Admin Dose 2.5 MG; Start 12/02/16 at 09:00 Morphine Sulfate (morphine) 2 mg Q4H PRN IV MODERATE PAIN LEVEL 4-6 Last administered on 12/04/16 00:01; Admin Dose 2 MG; Start 12/02/16 at 09:00 Acetaminophen (Tylenol Supp) 650 mg Q6H PRN [place] TEMP 100 AND ABOVE Last administered on 12/02/16 17:48; Admin Dose 650 MG; Start 12/02/16 at 16:00 Lorazepam 2 mg 2 mg Q6H PRN IV agitation Last administered on 12/04/16 15:00; Admin Dose 2 MG; Start 12/02/16 at 16:30 Ertapenem 1 gm/ Sodium Chloride 100 ml @ 200 mls/hr Q24H IVPB Last administered on 12/04/16 15:35; Admin Dose 200 MLS/HR; Start 12/03/16 at 12:00 Linezolid (Zyvox 600mg/D5W (Pmx)) 300 ml @ 300 mls/hr Q12 IVPB Last administered on 12/04/16 10:44; Admin Dose 300 MLS/HR; Start 12/03/16 at 10:30 RAUL GOMEZ NP Dec 04, 2016 19:20
[2016-12-04] MEDS: ATORVASTATIN 10 MG TAB GTB SCH (21:00)
[2016-12-05] VITALS (24 sets, daily range): BP systolic 127–138; BP diastolic 68–84; PULSE 84–126; RESP 16–20
[2016-12-05] MEDS: DEXTROSE 5%-0.45% NACL 1,000 ML IV SCH ×2 (01:00→21:30)
[2016-12-05] MEDS: METOPROLOL 5 MG INJ IV SCH ×6 (01:00→21:30)
--- NOTE | 2016-12-05 01:05 | RADRPT ---
PROCEDURE: XR Chest. CLINICAL INDICATION: Respiratory distress and nasogastric tube placement TECHNIQUE: 2 frontal views of the chest. COMPARISON: 12/01/2016. FINDINGS: Nasogastric tube in place with tip in the stomach, off the bottom of the film. Tracheostomy tube again seen The cardiomediastinal silhouette is within normal limits. Patchy right lung air space disease again seen, and this appears decreased over interval. Nodule versus nipple shadow at the right lung base 1 of the 2 images. Similar densities were seen on the prior examination dated 12/01/2016 at the bilateral lung bases. The left lung is otherwise clear. No signs of pleural fluid or pneumothorax are seen. Demineralization limits evaluation of fine osseo us detail. osseous structures and soft tissues are unremarkable. IMPRESSION: Nasogastric tube in place with tip in the stomach, off the bottom of the film. RPTAT: [facility] Physician Chitra Date Time Electronically viewed and signed by Physician Chitra on 12/05/2016 01:05 SANGEETHA/
[2016-12-05] MEDS: AL HYDROX/MG HYDROX/SIMETH 30 ML CUP GTB SCH ×4 (06:14→17:21)
[2016-12-05] MEDS: LORAZEPAM 2 MG INJ IV PRN (07:42)
[2016-12-05 07:46] LABS: ADD SCAN DIFF NO
[2016-12-05 07:49] LABS: ABNORMAL IP MESSAGE 1; BASOPHIL # 0.1 10^3/ul (0.0-0.1); BASOPHILS % 0.5 % (0.0-2.0); EOSINOPHILS # 0.1 10^3/ul (0.0-0.5); EOSINOPHILS % 0.5 % (0.0-7.0); HEMOGLOBIN 8.1 g/dl (14.0-18.0); LYMPHOCYTES # 0.9 10^3/ul (0.8-2.9); LYMPHOCYTES % 7.1 % (15.0-51.0); MEAN CORPUSCULAR HEMOGLOBIN 29.5 pg (29.0-33.0); MEAN CORPUSCULAR VOLUME 98.2 fl (82.0-101.0); MEAN PLATELET VOLUME 9.6 fl (7.4-10.4); MONOCYTES % 7.5 % (0.0-11.0); NEUTROPHIL # 10.6 10^3/ul (1.6-7.5); NEUTROPHILS % 81.1 % (39.0-77.0); NUCLEATED RED BLOOD CELLS% 0.2 /100WBC (0.0-0.0); PLATELET COUNT 240 10^3/UL (140-415); RED BLOOD COUNT 2.75 10^6/ul (4.70-6.10); RED CELL DISTRIBUTION WIDTH 15.1 % (11.5-14.5); WHITE BLOOD COUNT 13.1 10^3/ul (4.8-10.8)
[2016-12-05 08:09] LABS: CALCIUM 9.8 mg/dl (8.4-10.2); CREATININE 0.46 mg/dl (0.61-1.24); MAGNESIUM 1.6 mg/dl (1.7-2.5); PHOSPHORUS 3.6 mg/dl (2.5-4.9)
[2016-12-05] MEDS: PANTOPRAZOLE 40 MG INJ IV SCH (08:25)
[2016-12-05] MEDS: ARTIFICIAL TEARS 15 ML OPH BOTH EYES SCH ×3 (08:25→21:31)
[2016-12-05] MEDS: MULTIVITAMINS THERAPEUTIC TAB GTB SCH (08:26)
[2016-12-05] MEDS: ASCORBIC ACID 500 MG TAB GTB SCH (08:26)
[2016-12-05] MEDS: ASPIRIN (EC) 81 MG TAB PO SCH (08:26)
[2016-12-05] MEDS: LORATADINE 10 MG TAB GTB SCH (08:26)
[2016-12-05] MEDS: VALPROIC ACID LIQUID CUP 250 MG/5 ML CUP GTB SCH ×2 (08:26→21:29)
[2016-12-05] MEDS: OLANZAPINE 5 MG TAB GTB SCH (08:26)
[2016-12-05] MEDS: predniSONE 20 MG TAB GTB SCH (08:26)
[2016-12-05] MEDS: LINEZOLID 600 MG/D5W (PMX) 300 ML IVPB SCH ×2 (08:29→21:30)
[2016-12-05] MEDS: ENOXAPARIN 40 MG/0.4 ML SYG SC SCH (09:15)
--- NOTE | 2016-12-05 09:18 | CONS ---
Date/Time of Note Date/Time of Note DATE: 12/05/16 TIME: 09:00 Consult Date/Type/Reason Admit Date/Time Dec 01, 2016 at 13:25 Type of Consultation: neph/med Subjective The patient remains agitated and tachycardic, with heart rates in the 140s. The patient has been receiving Haldol and Zyprexa, as well as Ativan, with minimal improvement. The patient remains on IV fluids. no gtube planned currently. too agitated for ng. No other acute events noted. No hemoptysis, hematemesis or hematochezia. OBJECTIVE: HEENT: Head is normocephalic. NECK: Supple. HEART: Tachycardic. LUNGS: Showed diminished breath sounds at the base. ABDOMEN: Soft, nontender to palpation. No rebound or guarding. EXTREMITIES: Negative for clubbing or cyanosis. No edema. DERMATOLOGIC: No rashes. MUSCULOSKELETAL: Have no joint effusion. NEUROLOGIC: No change in exam. Objective Vital Signs Date Time Temp Pulse Resp B/P Pulse Ox O2 Delivery O2 Flow Rate FiO2 12/05/16 07:30 125 18 96 35 12/05/16 07:17 98.0 128/72 12/04/16 04:00 Mechanical Ventilator Trach Collar 12/03/16 06:06 2.0 Intake and Output 12/04/16 12/04/16 12/05/16 15:00 23:00 07:00 Intake Total 300 ml Output Total 400 ml Balance -100 ml Results/Medications Result Diagram: 12/05/16 0620 12/05/16 0620 Results 24 hrs Laboratory Tests Test 12/05/16 06:20 12/05/16 06:22 White Blood Count 13.1 #H Red Blood Count 2.75 L Hemoglobin 8.1 L Hematocrit 27.0 L Mean Corpuscular Volume 98.2 Mean Corpuscular Hemoglobin 29.5 Mean Corpuscular Hemoglobin Concent 30.0 L Red Cell Distribution Width 15.1 H Platelet Count 240 # Mean Platelet Volume 9.6 Neutrophils % 81.1 H Lymphocytes % 7.1 L Monocytes % 7.5 Eosinophils % 0.5 Basophils % 0.5 Nucleated Red Blood Cells % 0.2 H Neutrophils # 10.6 H Lymphocytes # 0.9 Monocytes # 1.0 H Eosinophils # 0.1 Basophils # 0.1 Nucleated Red Blood Cells # 0.0 Sodium Level 138 Potassium Level 4.0 Chloride Level 92 L Carbon Dioxide Level 39 H Anion Gap 11 Blood Urea Nitrogen 18 Creatinine 0.46 L Glucose Level 142 # Calcium Level 9.8 Phosphorus Level 3.6 Magnesium Level 1.6 L Lab Scanned Report REFERENCE LAB Medications Current Medications Acetaminophen (Tylenol Tab) 650 mg Q6 PRN GTB PAIN AND OR ELEVATED TEMP; Start 12/01/16 at 15:00 Acetaminophen (Tylenol Tab) 1,000 mg Q6H PRN PO MODERATE PAIN LEVEL 4-6; Start 12/01/16 at 15:00 Ascorbic Acid (Vitamin C) 500 mg DAILY GTB Last administered on 12/05/16 08:26 ; Admin Dose 500 MG; Start 12/02/16 at 09:00 Aspirin (Halfprin) 81 mg DAILY PO Last administered on 12/05/16 08:26; Admin Dose 81 MG; Start 12/02/16 at 09:00 Atorvastatin Calcium (Lipitor) 5 mg QHS GTB ; Start 12/01/16 at 21:00 Bisacodyl (Dulcolax Supp) 10 mg DAILY PRN [place] CONSTIPATION; Start 12/01/16 at 15 :00 Docusate Sodium (Colace) 200 mg QHS PRN PO CONSTIPATION; Start 12/01/16 at 15: 00 Enoxaparin Sodium (Lovenox) 40 mg DAILY SC Last administered on 12/04/16 10:45 ; Admin Dose 40 MG; Start 12/02/16 at 09:00 Fentanyl (Duragesic 12 Mcg/Hr Patch) 1 patch Q72H PRN TRANSDERM PAIN Last administered on 12/01/16 23:52; Admin Dose 1 PATCH; Start 12/01/16 at 23:30 Acetaminophen/ Hydrocodone Bitart ([place] (5/325)) 1 tab Q6 PRN GTB SEVERE PAIN LEVEL 7-10 Last administered on 12/01/16 17:30; Admin Dose 1 TAB; Start at 15:00 Loratadine (Claritin) 10 mg DAILY GTB Last administered on 12/05/16 08:26; Admin Dose 10 MG; Start 12/02/16 at 09:00 Lorazepam (Ativan) 0.5 mg Q6 PRN GTB ANXIETY Last administered on 12/01/16 17: 29; Admin Dose 0.5 MG; Start 12/01/16 at 15:00 Al Hydrox/Mg Hydrox/Simethicone (Mag-Al Plus) 30 ml Q6 GTB Last administered on 12/05/16 06:14; Admin Dose 30 ML; Start 12/01/16 at 18:00 Magnesium Hydroxide (Milk Of Mag) 30 ml DAILY PRN GTB CONSTIPATION; Start 12/01 at 15:00 Metoprolol Tartrate (Lopressor) 25 mg BID GTB ; Start 12/01/16 at 21:00; Status Future Hold Multivitamins Therapeutic (Theragran) 1 tab DAILY GTB Last administered on 12/05 08:26; Admin Dose 1 TAB; Start 12/02/16 at 09:00 Olanzapine (Zyprexa) 5 mg DAILY GTB Last administered on 12/05/16 08:26; Admin Dose 5 MG; Start 12/02/16 at 09:00 Eye Lubricant (Artificial Tears Oph) 1 drop TID BOTH EYES Last administered on 12/05/16 08:25; Admin Dose 1 DROP; Start 12/01/16 at 21:00 Prednisone (Prednisone) 20 mg DAILY GTB Last administered on 12/05/16 08:26; Admin Dose 20 MG; Start 12/02/16 at 09:00 Valproate Sodium 250 mg 250 mg BID GTB Last administered on 12/05/16 08:26; Admin Dose 250 MG; Start 12/01/16 at 21:00 Dextrose/Sodium Chloride (D5-1/2ns) 1,000 ml @ 50 mls/hr Q20H IV Last administered on 12/05/16 01:00; Admin Dose 50 MLS/HR; Start 12/01/16 at 17:00 Pantoprazole (Protonix Iv) 40 mg DAILY IV Last administered on 12/05/16 08:25 ; Admin Dose 40 MG; Start 12/02/16 at 09:00 Metoprolol Tartrate (Lopressor) 2.5 mg Q4H IV Last administered on 12/05/16 08 :28; Admin Dose 2.5 MG; Start 12/02/16 at 09:00 Morphine Sulfate (morphine) 2 mg Q4H PRN IV MODERATE PAIN LEVEL 4-6 Last administered on 12/04/16 00:01; Admin Dose 2 MG; Start 12/02/16 at 09:00 Acetaminophen (Tylenol Supp) 650 mg Q6H PRN [place] TEMP 100 AND ABOVE Last administered on 12/02/16 17:48; Admin Dose 650 MG; Start 12/02/16 at 16:00 Lorazepam 2 mg 2 mg Q6H PRN IV agitation Last administered on 12/05/16 07:42; Admin Dose 2 MG; Start 12/02/16 at 16:30 Ertapenem 1 gm/ Sodium Chloride 100 ml @ 200 mls/hr Q24H IVPB Last administered on 12/04/16 15:35; Admin Dose 200 MLS/HR; Start 12/03/16 at 12:00 Linezolid (Zyvox 600mg/D5W (Pmx)) 300 ml @ 300 mls/hr Q12 IVPB Last administered on 12/05/16 08:29; Admin Dose 300 MLS/HR; Start 12/03/16 at 10:30 Assessment/Plan Chief Complaint/Hosp Course 1. Sepsis secondary to abdominal wall cellulitis/abscess. The patient currently is on broad spectrum antibiotics. Will continue. Cultures have been reviewed. Will follow up with ID for further recommendations. 2. Abdominal abscess secondary to NG tube malposition. The patient's G-tube was removed. Appreciate GI and general surgery's evaluation. Will follow up with further recommendations. 3. Nutrition. The patient is currently n.p.o. Will discuss with GI about placing a possible NG tube to initiate tube feedings, or to start the patient on TPN. Will defer to GI, who will evaluate the patient today. 4. Tachycardia. Etiology is multifactorial secondary to agitation. The patient has been followed by cardiology. Continue anti-psychotropic medications and monitor closely. 5. Ventilator-dependent respiratory failure. Vent settings have been reviewed. ABG was reviewed. Continue to monitor. 5. Bipolar disorder and psychosis. Continue Zyprexa IM and Ativan p.r.n. Once the patient's G-tube is placed, we can resume the patient on Depakote. 6. Anemia. Continue to monitor hemoglobin and hematocrit levels. 7. Chronic hypercapnic respiratory failure. The patient is currently compensated. Continue to monitor. 8. Mild hypokalemia. Resolved. 9. Hypertension. Continue the current blood pressure regimen. 10. Coronary artery disease. Continue medical management. 11. History of paroxysmal atrial fibrillation. Currently in sinus rhythm. Continue to monitor. 12. Gastrointestinal and deep venous thrombosis prophylaxis. Continue PPI and Lovenox. 13. Leukocytosis secondary to sepsis. Improving. Continue to monitor. 14. agitation- possible agitation of underlying psych condition now off oral psychotropics. may need ngtube for meds but may make more agitated. Problems: SCOTT DOHERTY MD Dec 05, 2016 09:11
[2016-12-05] MEDS: morphine 2 MG INJ IV PRN (09:32)
--- NOTE | 2016-12-05 10:28 | RADRPT ---
PROCEDURE: XR Chest. CLINICAL INDICATION: Respiratory distress. TECHNIQUE: AP view of the chest was performed. COMPARISON: December 01, 2016 FINDINGS: Tracheostomy tube remains in good positioning. The distal tip of the NG tube is not well seen. The stomach is noted distended. This tube should be advanced further, and then a repeat film obtained, centered over the stomach. The lung silver remain clear. No pneumothorax or pleural effusion. No acute infiltrate or findings of fluid overload. IMPRESSION: Endotracheal tube in good positioning. The NG tube distal tip is not well seen. It should be advan kate, and then a repeat film obtained visualizing the left upper quadrant. The stomach is noted dist ended, so it may not be far within the stomach. No acute infiltrate or findings of fluid overload. RPTAT: QQ. .Melanie Elmore MD, Date Time Electronically viewed and signed by .Melanie Elmore MD, on 12/04/2016 20:15 .F/
[2016-12-05] MEDS: ERTAPENEM SODIUM 1 GM in SOD CHLORIDE 0.9% 100 ML IVPB SCH (12:00)
--- NOTE | 2016-12-05 13:35 | CONS ---
Date/Time of Note Date/Time of Note DATE: 12/05/16 TIME: 13:30 Assessment/Plan Assessment/Plan Chief Complaint/Hosp Course SUBJECTIVE: No acute changes. Awake. No acute distress. Low grade fever. MICROBIOLOGY: Blood culture remains negative. Urine culture growing VRE/E coli ESBL INDWELLINGS: Trach, [place]. ANTIMICROBIALS: 1. Zyvox 2. Invanz PHYSICAL EXAMINATION: GENERAL: This is an obese, well-developed, ill-appearing, middle-aged man who is in no distress. HEENT: Head atraumatic, normocephalic. Sclerae anicteric. Buccal mucosa dry. NECK: Supple. Tracheostomy present. CHEST: Rise symmetrical. Breath sounds diminished. HEART: S1, S2. ABDOMEN: Obese, soft. G-tube site covered with dressing. EXTREMITIES: Without cyanosis. ASSESSMENT: 1. Sepsis. 2. Polymicrobial urinary tract infection. 3. G-tube malfunction, status post discontinued 4. Chronic respiratory failure. 5. Bipolar disorder. 6. History of oxacillin-sensitive Staphylococcus aureus bacteremia, treated. 7. Chronic obstructive pulmonary disease, status post pneumonia. PLAN: Continue ABX. Pending Swallow Evaluation. Continue with GI recommendations. Aspiration precaution. Monitor Labs. staff. Problems: Consultation Date/Type/Reason Admit Date/Time Dec 01, 2016 at 13:25 Initial Consult Date 12/04/16 Type of Consultation: ID Exam/Review of Systems Vital Signs Vitals Vital Signs Date Time Temp Pulse Resp B/P Pulse Ox O2 Delivery O2 Flow Rate FiO2 12/05/16 11:37 99.3 121 20 134/79 97 12/05/16 11:00 35 12/04/16 04:00 Mechanical Ventilator Trach Collar 12/03/16 06:06 2.0 Intake and Output 12/04/16 12/04/16 12/05/16 15:00 23:00 07:00 Intake Total 300 ml Output Total 400 ml Balance -100 ml Results Result Diagram: 12/05/16 0620 12/05/16 0620 Results 24 hrs Laboratory Tests Test 12/05/16 06:20 12/05/16 06:22 White Blood Count 13.1 #H Red Blood Count 2.75 L Hemoglobin 8.1 L Hematocrit 27.0 L Mean Corpuscular Volume 98.2 Mean Corpuscular Hemoglobin 29.5 Mean Corpuscular Hemoglobin Concent 30.0 L Red Cell Distribution Width 15.1 H Platelet Count 240 # Mean Platelet Volume 9.6 Neutrophils % 81.1 H Lymphocytes % 7.1 L Monocytes % 7.5 Eosinophils % 0.5 Basophils % 0.5 Nucleated Red Blood Cells % 0.2 H Neutrophils # 10.6 H Lymphocytes # 0.9 Monocytes # 1.0 H Eosinophils # 0.1 Basophils # 0.1 Nucleated Red Blood Cells # 0.0 Sodium Level 138 Potassium Level 4.0 Chloride Level 92 L Carbon Dioxide Level 39 H Anion Gap 11 Blood Urea Nitrogen 18 Creatinine 0.46 L Glucose Level 142 # Calcium Level 9.8 Phosphorus Level 3.6 Magnesium Level 1.6 L Lab Scanned Report REFERENCE LAB Medications Medications Current Medications Acetaminophen (Tylenol Tab) 650 mg Q6 PRN GTB PAIN AND OR ELEVATED TEMP; Start 12/01/16 at 15:00 Acetaminophen (Tylenol Tab) 1,000 mg Q6H PRN PO MODERATE PAIN LEVEL 4-6; Start 12/01/16 at 15:00 Ascorbic Acid (Vitamin C) 500 mg DAILY GTB Last administered on 12/05/16 08:26 ; Admin Dose 500 MG; Start 12/02/16 at 09:00 Aspirin (Halfprin) 81 mg DAILY PO Last administered on 12/05/16 08:26; Admin Dose 81 MG; Start 12/02/16 at 09:00 Atorvastatin Calcium (Lipitor) 5 mg QHS GTB ; Start 12/01/16 at 21:00 Bisacodyl (Dulcolax Supp) 10 mg DAILY PRN [place] CONSTIPATION; Start 12/01/16 at 15 :00 Docusate Sodium (Colace) 200 mg QHS PRN PO CONSTIPATION; Start 12/01/16 at 15: 00 Enoxaparin Sodium (Lovenox) 40 mg DAILY SC Last administered on 12/05/16 09:15 ; Admin Dose 40 MG; Start 12/02/16 at 09:00 Fentanyl (Duragesic 12 Mcg/Hr Patch) 1 patch Q72H PRN TRANSDERM PAIN Last administered on 12/01/16 23:52; Admin Dose 1 PATCH; Start 12/01/16 at 23:30 Acetaminophen/ Hydrocodone Bitart ([place] (5/325)) 1 tab Q6 PRN GTB SEVERE PAIN LEVEL 7-10 Last administered on 12/01/16 17:30; Admin Dose 1 TAB; Start at 15:00 Loratadine (Claritin) 10 mg DAILY GTB Last administered on 12/05/16 08:26; Admin Dose 10 MG; Start 12/02/16 at 09:00 Lorazepam (Ativan) 0.5 mg Q6 PRN GTB ANXIETY Last administered on 12/01/16 17: 29; Admin Dose 0.5 MG; Start 12/01/16 at 15:00 Al Hydrox/Mg Hydrox/Simethicone (Mag-Al Plus) 30 ml Q6 GTB Last administered on 12/05/16 13:29; Admin Dose 30 ML; Start 12/01/16 at 18:00 Magnesium Hydroxide (Milk Of Mag) 30 ml DAILY PRN GTB CONSTIPATION; Start 12/01 at 15:00 Metoprolol Tartrate (Lopressor) 25 mg BID GTB ; Start 12/01/16 at 21:00; Status Future Hold Multivitamins Therapeutic (Theragran) 1 tab DAILY GTB Last administered on 12/05 08:26; Admin Dose 1 TAB; Start 12/02/16 at 09:00 Olanzapine (Zyprexa) 5 mg DAILY GTB Last administered on 12/05/16 08:26; Admin Dose 5 MG; Start 12/02/16 at 09:00 Eye Lubricant (Artificial Tears Oph) 1 drop TID BOTH EYES Last administered on 12/05/16 08:25; Admin Dose 1 DROP; Start 12/01/16 at 21:00 Prednisone (Prednisone) 20 mg DAILY GTB Last administered on 12/05/16 08:26; Admin Dose 20 MG; Start 12/02/16 at 09:00 Valproate Sodium 250 mg 250 mg BID GTB Last administered on 12/05/16 08:26; Admin Dose 250 MG; Start 12/01/16 at 21:00 Dextrose/Sodium Chloride (D5-1/2ns) 1,000 ml @ 50 mls/hr Q20H IV Last administered on 12/05/16 01:00; Admin Dose 50 MLS/HR; Start 12/01/16 at 17:00 Pantoprazole (Protonix Iv) 40 mg DAILY IV Last administered on 12/05/16 08:25 ; Admin Dose 40 MG; Start 12/02/16 at 09:00 Metoprolol Tartrate (Lopressor) 2.5 mg Q4H IV Last administered on 12/05/16 08 :28; Admin Dose 2.5 MG; Start 12/02/16 at 09:00 Morphine Sulfate (morphine) 2 mg Q4H PRN IV MODERATE PAIN LEVEL 4-6 Last administered on 12/05/16 09:32; Admin Dose 2 MG; Start 12/02/16 at 09:00 Acetaminophen (Tylenol Supp) 650 mg Q6H PRN [place] TEMP 100 AND ABOVE Last administered on 12/02/16 17:48; Admin Dose 650 MG; Start 12/02/16 at 16:00 Lorazepam 2 mg 2 mg Q6H PRN IV agitation Last administered on 12/05/16 07:42; Admin Dose 2 MG; Start 12/02/16 at 16:30 Ertapenem 1 gm/ Sodium Chloride 100 ml @ 200 mls/hr Q24H IVPB Last administered on 12/05/16 12:00; Admin Dose 200 MLS/HR; Start 12/03/16 at 12:00 Linezolid (Zyvox 600mg/D5W (Pmx)) 300 ml @ 300 mls/hr Q12 IVPB Last administered on 12/05/16 08:29; Admin Dose 300 MLS/HR; Start 12/03/16 at 10:30 TOMA IGNACIO NP Dec 05, 2016 13:35
--- NOTE | 2016-12-05 14:00 | PN ---
Date/Time of Note Date/Time of Note DATE: 12/05/16 TIME: 13:58 Assessment/Plan Lines/Catheters IV Catheter Type (from Nrs): Peripheral IV Estrella in Place (from Nrs): No Assessment/Plan Assessment/Plan 56-year-old male with abdominal pain and sepsis and PEG tube malpositioned and abdominal wall abscess. * Continue broad-spectrum intravenous antibiotics and aggressive IV fluid hydration with pain control as needed. * He will need incision and drainage with possible debridement. However, this will be quite a morbid procedure for this patient given his chronic medical problems. * Await stabilization and medical clearance. * Now that NGT is in place, recommend CT Scan Abd/Pel with PO contrast down NGT to assess for possible persistent gastric fistula and follow up cellulitis and abscess The above was discussed with patient's uncle who is at the bedside. Further recommendations will be made based on the patient's clinical course. Subjective 24 Hr Interval Summary NGT has been inserted. Remains agitated. Tmax 101.4. Currently afebrile. Exam/Review of Systems Vital Signs Vitals Vital Signs Date Time Temp Pulse Resp B/P Pulse Ox O2 Delivery O2 Flow Rate FiO2 12/05/16 12:16 123 12/05/16 11:37 99.3 20 134/79 97 12/05/16 11:00 35 12/04/16 04:00 Mechanical Ventilator Trach Collar 12/03/16 06:06 2.0 Intake and Output 12/04/16 12/04/16 12/05/16 15:00 23:00 07:00 Intake Total 300 ml Output Total 400 ml Balance -100 ml Exam Free Text/Dictation GENERAL APPEARANCE: He is an overweight male who is chronically debilitated and on the ventilator. Tremulous, agitated, awake and can respond to questions. NECK: Tracheostomy. CARDIOVASCULAR: S1, S2. Tachycardic. RESPIRATORY: Diminished breath sounds bilateral bases. ABDOMEN: Obese, but soft. There is, in the left upper quadrant, the old PEG tube site which is draining murky fluid. There is significant cellulitis and edema which extends to the left flank and chest wall, unchanged. No fluctuance. No crepitus. Area is tender to palpation. There is no evidence of diffuse peritonitis. EXTREMITIES: Exhibit dependent edema bilaterally. Results Result Diagram: 12/05/1661912/05/16619 RENZO LAI MD Dec 05, 2016 14:00
--- NOTE | 2016-12-05 14:30 | CONS ---
Date/Time of Note Date/Time of Note DATE: 12/05/16 TIME: 14:26 Assessment/Plan Assessment/Plan Chief Complaint/Hosp Course Consult dictated [id number] Problems: Additional Assessment/Plan Assessment recommendations; 1. Patient admitted for abdominal wall cellulitis with significant clinical improvement. 2. Chronic respiratory failure due to end-stage COPD, status post tracheostomy and G-tube placement. 3. History of bipolar disorder. 3. History of paroxysmal atrial fibrillation. 5. Hypertension. 6. History of coronary artery disease. 7. Continuously poor mental status. Continue current treatment. Patient responding well to current treatment regimen. Consultation Date/Type/Reason Admit Date/Time Dec 01, 2016 at 13:25 Initial Consult Date 12/04/16 Type of Consultation: Pulmonary 24 HR Interval Summary Free Text/Dictation Patient's condition is stable. Has remained hemodynamically stable. Patient has waxing and waning mental status. General exam; middle-aged male, morbidly obese, currently in no distress. On ventilator via tracheostomy. Exam/Review of Systems Vital Signs Vitals Vital Signs Date Time Temp Pulse Resp B/P Pulse Ox O2 Delivery O2 Flow Rate FiO2 12/05/16 13:25 104 16 96 35 12/05/16 11:37 99.3 134/79 12/04/16 04:00 Mechanical Ventilator Trach Collar 12/03/16 06:06 2.0 Intake and Output 12/04/16 12/04/16 12/05/16 15:00 23:00 07:00 Intake Total 300 ml Output Total 400 ml Balance -100 ml Exam HEENT examination; supple neck, no lymphadenopathy. Tracheostomy in place with clean insertion site. Pupils are midsize and reactive to light. No neck masses. Chest examined; diminished breath sounds throughout. S1-S2 audible, no murmurs. Regular rhythm. Abdomen exam; protuberant. There is improving abdominal wall cellulitis. G- tube in place. No organomegaly. Extremity examination; no peripheral edema. Pulses 1+ bilaterally. 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 Results Result Diagram: 12/05/16 0620 12/05/16 0620 Results 24 hrs Laboratory Tests Test 12/05/16 06:20 12/05/16 06:22 White Blood Count 13.1 #H Red Blood Count 2.75 L Hemoglobin 8.1 L Hematocrit 27.0 L Mean Corpuscular Volume 98.2 Mean Corpuscular Hemoglobin 29.5 Mean Corpuscular Hemoglobin Concent 30.0 L Red Cell Distribution Width 15.1 H Platelet Count 240 # Mean Platelet Volume 9.6 Neutrophils % 81.1 H Lymphocytes % 7.1 L Monocytes % 7.5 Eosinophils % 0.5 Basophils % 0.5 Nucleated Red Blood Cells % 0.2 H Neutrophils # 10.6 H Lymphocytes # 0.9 Monocytes # 1.0 H Eosinophils # 0.1 Basophils # 0.1 Nucleated Red Blood Cells # 0.0 Sodium Level 138 Potassium Level 4.0 Chloride Level 92 L Carbon Dioxide Level 39 H Anion Gap 11 Blood Urea Nitrogen 18 Creatinine 0.46 L Glucose Level 142 # Calcium Level 9.8 Phosphorus Level 3.6 Magnesium Level 1.6 L Lab Scanned Report REFERENCE LAB Medications Medications Current Medications Acetaminophen (Tylenol Tab) 650 mg Q6 PRN GTB PAIN AND OR ELEVATED TEMP; Start 12/01/16 at 15:00 Acetaminophen (Tylenol Tab) 1,000 mg Q6H PRN PO MODERATE PAIN LEVEL 4-6; Start 12/01/16 at 15:00 Ascorbic Acid (Vitamin C) 500 mg DAILY GTB Last administered on 12/05/16 08:26 ; Admin Dose 500 MG; Start 12/02/16 at 09:00 Aspirin (Halfprin) 81 mg DAILY PO Last administered on 12/05/16 08:26; Admin Dose 81 MG; Start 12/02/16 at 09:00 Atorvastatin Calcium (Lipitor) 5 mg QHS GTB ; Start 12/01/16 at 21:00 Bisacodyl (Dulcolax Supp) 10 mg DAILY PRN [place] CONSTIPATION; Start 12/01/16 at 15 :00 Docusate Sodium (Colace) 200 mg QHS PRN PO CONSTIPATION; Start 12/01/16 at 15: 00 Enoxaparin Sodium (Lovenox) 40 mg DAILY SC Last administered on 12/05/16 09:15 ; Admin Dose 40 MG; Start 12/02/16 at 09:00 Fentanyl (Duragesic 12 Mcg/Hr Patch) 1 patch Q72H PRN TRANSDERM PAIN Last administered on 12/01/16 23:52; Admin Dose 1 PATCH; Start 12/01/16 at 23:30 Acetaminophen/ Hydrocodone Bitart ([place] (5/325)) 1 tab Q6 PRN GTB SEVERE PAIN LEVEL 7-10 Last administered on 12/01/16 17:30; Admin Dose 1 TAB; Start at 15:00 Loratadine (Claritin) 10 mg DAILY GTB Last administered on 12/05/16 08:26; Admin Dose 10 MG; Start 12/02/16 at 09:00 Lorazepam (Ativan) 0.5 mg Q6 PRN GTB ANXIETY Last administered on 12/01/16 17: 29; Admin Dose 0.5 MG; Start 12/01/16 at 15:00 Al Hydrox/Mg Hydrox/Simethicone (Mag-Al Plus) 30 ml Q6 GTB Last administered on 12/05/16 13:29; Admin Dose 30 ML; Start 12/01/16 at 18:00 Magnesium Hydroxide (Milk Of Mag) 30 ml DAILY PRN GTB CONSTIPATION; Start 12/01 at 15:00 Metoprolol Tartrate (Lopressor) 25 mg BID GTB ; Start 12/01/16 at 21:00; Status Future Hold Multivitamins Therapeutic (Theragran) 1 tab DAILY GTB Last administered on 12/05 08:26; Admin Dose 1 TAB; Start 12/02/16 at 09:00 Olanzapine (Zyprexa) 5 mg DAILY GTB Last administered on 12/05/16 08:26; Admin Dose 5 MG; Start 12/02/16 at 09:00 Eye Lubricant (Artificial Tears Oph) 1 drop TID BOTH EYES Last administered on 12/05/16 08:25; Admin Dose 1 DROP; Start 12/01/16 at 21:00 Prednisone (Prednisone) 20 mg DAILY GTB Last administered on 12/05/16 08:26; Admin Dose 20 MG; Start 12/02/16 at 09:00 Valproate Sodium 250 mg 250 mg BID GTB Last administered on 12/05/16 08:26; Admin Dose 250 MG; Start 12/01/16 at 21:00 Dextrose/Sodium Chloride (D5-1/2ns) 1,000 ml @ 50 mls/hr Q20H IV Last administered on 12/05/16 01:00; Admin Dose 50 MLS/HR; Start 12/01/16 at 17:00 Pantoprazole (Protonix Iv) 40 mg DAILY IV Last administered on 12/05/16 08:25 ; Admin Dose 40 MG; Start 12/02/16 at 09:00 Metoprolol Tartrate (Lopressor) 2.5 mg Q4H IV Last administered on 12/05/16 08 :28; Admin Dose 2.5 MG; Start 12/02/16 at 09:00 Morphine Sulfate (morphine) 2 mg Q4H PRN IV MODERATE PAIN LEVEL 4-6 Last administered on 12/05/16 09:32; Admin Dose 2 MG; Start 12/02/16 at 09:00 Acetaminophen (Tylenol Supp) 650 mg Q6H PRN MD TEMP 100 AND ABOVE Last administered on 12/02/16 17:48; Admin Dose 650 MG; Start 12/02/16 at 16:00 Lorazepam 2 mg 2 mg Q6H PRN IV agitation Last administered on 12/05/16 07:42; Admin Dose 2 MG; Start 12/02/16 at 16:30 Ertapenem 1 gm/ Sodium Chloride 100 ml @ 200 mls/hr Q24H IVPB Last administered on 12/05/16 12:00; Admin Dose 200 MLS/HR; Start 12/03/16 at 12:00 Linezolid (Zyvox 600mg/D5W (Pmx)) 300 ml @ 300 mls/hr Q12 IVPB Last administered on 12/05/16 08:29; Admin Dose 300 MLS/HR; Start 12/03/16 at 10:30 SHARON LLAMAS Dec 05, 2016 14:30
[2016-12-05] MEDS ORDERED: GLUCOSE GEL 15 GRAM TUBE PO PRN ×2 (15:30)
[2016-12-05] MEDS ORDERED: DEXTROSE 50% 50 ML SYRINGE IV PRN ×2 (15:30)
[2016-12-05] MEDS ORDERED: GLUCOSE GEL 15 GRAM TUBE BUCCAL PRN (15:30)
[2016-12-05] MEDS ORDERED: GLUCAGON 1 MG INJ IM PRN (15:30)
[2016-12-05] MEDS: INSULIN ASPART [NOVOLOG] 3 ML PEN SC SCH (17:27)
--- NOTE | 2016-12-05 19:11 | CONS ---
Date/Time of Note Date/Time of Note DATE: 12/05/16 TIME: 19:10 Assessment/Plan Assessment/Plan Additional Assessment/Plan IMPRESSION: 1. Buried bumper syndrome. Bumper was buried in the subcutaneous tissue with debris and gas in the left anterior and left lateral abdominal wall and chest. 2. Morbidly obese. 3. Ventilator-dependent respiratory failure. 4. Atrial fibrillation. 5. Bipolar disorder. 6. Chronic obstructive pulmonary disease. 7. Leukocytosis, trending downward. 8. Cellulitis of the left side of the abdominal wall, mild hyperemia extending throughout the left side of the abdominal wall. There is no discharge from the G-tube site. G-tube site is completely closed PLAN: 1. Remove the G-tube. Discussed with the patient, and after the removal of the G-tube, the patient's pain reduced drastically by 80% to 90%. 2. Continue antibiotic. 3. Continue vent support and IV fluid. Will get also surgical consult and monitor WBC count closely. 4. We will repeat CAT scan of the abdomen to make sure cellulitis is healing. 5. Will pass NG tube tomorrow and resume feeding through the NG tube. I want to make sure the internal stoma is completely closed. Consultation Date/Type/Reason Admit Date/Time Dec 01, 2016 at 13:25 Type of Consultation: Pulmonary 24 HR Interval Summary Constitutional: no complaints Exam/Review of Systems Vital Signs Vitals Vital Signs Date Time Temp Pulse Resp B/P Pulse Ox O2 Delivery O2 Flow Rate FiO2 12/05/16 17:00 106 18 98 35 12/05/16 11:37 99.3 134/79 12/04/16 04:00 Mechanical Ventilator Trach Collar 12/03/16 06:06 2.0 Intake and Output 12/04/16 12/04/16 12/05/16 15:00 23:00 07:00 Intake Total 300 ml Output Total 400 ml Balance -100 ml Exam Constitutional: alert, oriented, well developed Psych: nl mood/affect, no complaints Head: atraumatic, normocephalic Eyes: EOMI, PERRL, nl conjunctiva, nl lids, nl sclera ENMT: nl external ears & nose, nl lips & teeth, nl nasal mucosa & septum Neck: non-tender, supple Respiratory: clear to auscultation, normal air movement Cardiovascular: nl pulses, regular rate and rhythm Gastrointestinal: nl liver, spleen, non-tender, soft Musculoskeletal: nl extremities to inspection, nl gait and stance Extremities: normal pulses Neurological: BALANCE STAFF STAKER II-XII intact, nl mental status, nl speech, nl strength Skin: nl turgor, No rash or lesions Lymph: nl lymph nodes Results Result Diagram: 12/05/16 0620 12/05/16 0620 Results 24 hrs Laboratory Tests Test 12/05/16 06:20 12/05/16 06:22 12/05/16 17:25 White Blood Count 13.1 #H Red Blood Count 2.75 L Hemoglobin 8.1 L Hematocrit 27.0 L Mean Corpuscular Volume 98.2 Mean Corpuscular Hemoglobin 29.5 Mean Corpuscular Hemoglobin Concent 30.0 L Red Cell Distribution Width 15.1 H Platelet Count 240 # Mean Platelet Volume 9.6 Neutrophils % 81.1 H Lymphocytes % 7.1 L Monocytes % 7.5 Eosinophils % 0.5 Basophils % 0.5 Nucleated Red Blood Cells % 0.2 H Neutrophils # 10.6 H Lymphocytes # 0.9 Monocytes # 1.0 H Eosinophils # 0.1 Basophils # 0.1 Nucleated Red Blood Cells # 0.0 Sodium Level 138 Potassium Level 4.0 Chloride Level 92 L Carbon Dioxide Level 39 H Anion Gap 11 Blood Urea Nitrogen 18 Creatinine 0.46 L Glucose Level 142 # Calcium Level 9.8 Phosphorus Level 3.6 Magnesium Level 1.6 L Lab Scanned Report REFERENCE LAB Bedside Glucose 119 Medications Medications Current Medications Acetaminophen (Tylenol Tab) 650 mg Q6 PRN GTB PAIN AND OR ELEVATED TEMP; Start 12/01/16 at 15:00 Acetaminophen (Tylenol Tab) 1,000 mg Q6H PRN PO MODERATE PAIN LEVEL 4-6; Start 12/01/16 at 15:00 Ascorbic Acid (Vitamin C) 500 mg DAILY GTB Last administered on 12/05/16 08:26 ; Admin Dose 500 MG; Start 12/02/16 at 09:00 Aspirin (Halfprin) 81 mg DAILY PO Last administered on 12/05/16 08:26; Admin Dose 81 MG; Start 12/02/16 at 09:00 Atorvastatin Calcium (Lipitor) 5 mg QHS GTB ; Start 12/01/16 at 21:00 Bisacodyl (Dulcolax Supp) 10 mg DAILY PRN [place] CONSTIPATION; Start 12/01/16 at 15 :00 Docusate Sodium (Colace) 200 mg QHS PRN PO CONSTIPATION; Start 12/01/16 at 15: 00 Enoxaparin Sodium (Lovenox) 40 mg DAILY SC Last administered on 12/05/16 09:15 ; Admin Dose 40 MG; Start 12/02/16 at 09:00 Fentanyl (Duragesic 12 Mcg/Hr Patch) 1 patch Q72H PRN TRANSDERM PAIN Last administered on 12/01/16 23:52; Admin Dose 1 PATCH; Start 12/01/16 at 23:30 Acetaminophen/ Hydrocodone Bitart ([place] (5/325)) 1 tab Q6 PRN GTB SEVERE PAIN LEVEL 7-10 Last administered on 12/01/16 17:30; Admin Dose 1 TAB; Start at 15:00 Loratadine (Claritin) 10 mg DAILY GTB Last administered on 12/05/16 08:26; Admin Dose 10 MG; Start 12/02/16 at 09:00 Lorazepam (Ativan) 0.5 mg Q6 PRN GTB ANXIETY Last administered on 12/01/16 17: 29; Admin Dose 0.5 MG; Start 12/01/16 at 15:00 Al Hydrox/Mg Hydrox/Simethicone (Mag-Al Plus) 30 ml Q6 GTB Last administered on 12/05/16 17:21; Admin Dose 30 ML; Start 12/01/16 at 18:00 Magnesium Hydroxide (Milk Of Mag) 30 ml DAILY PRN GTB CONSTIPATION; Start 12/01 at 15:00 Metoprolol Tartrate (Lopressor) 25 mg BID GTB ; Start 12/01/16 at 21:00; Status Future Hold Multivitamins Therapeutic (Theragran) 1 tab DAILY GTB Last administered on 12/05 08:26; Admin Dose 1 TAB; Start 12/02/16 at 09:00 Olanzapine (Zyprexa) 5 mg DAILY GTB Last administered on 12/05/16 08:26; Admin Dose 5 MG; Start 12/02/16 at 09:00 Eye Lubricant (Artificial Tears Oph) 1 drop TID BOTH EYES Last administered on 12/05/16 08:25; Admin Dose 1 DROP; Start 12/01/16 at 21:00 Prednisone (Prednisone) 20 mg DAILY GTB Last administered on 12/05/16 08:26; Admin Dose 20 MG; Start 12/02/16 at 09:00 Valproate Sodium 250 mg 250 mg BID GTB Last administered on 12/05/16 08:26; Admin Dose 250 MG; Start 12/01/16 at 21:00 Dextrose/Sodium Chloride (D5-1/2ns) 1,000 ml @ 50 mls/hr Q20H IV Last administered on 12/05/16 01:00; Admin Dose 50 MLS/HR; Start 12/01/16 at 17:00 Pantoprazole (Protonix Iv) 40 mg DAILY IV Last administered on 12/05/16 08:25 ; Admin Dose 40 MG; Start 12/02/16 at 09:00 Metoprolol Tartrate (Lopressor) 2.5 mg Q4H IV Last administered on 12/05/16 16 :15; Admin Dose 2.5 MG; Start 12/02/16 at 09:00 Morphine Sulfate (morphine) 2 mg Q4H PRN IV MODERATE PAIN LEVEL 4-6 Last administered on 12/05/16 09:32; Admin Dose 2 MG; Start 12/02/16 at 09:00 Acetaminophen (Tylenol Supp) 650 mg Q6H PRN [place] TEMP 100 AND ABOVE Last administered on 12/02/16 17:48; Admin Dose 650 MG; Start 12/02/16 at 16:00 Lorazepam 2 mg 2 mg Q6H PRN IV agitation Last administered on 12/05/16 07:42; Admin Dose 2 MG; Start 12/02/16 at 16:30 Ertapenem 1 gm/ Sodium Chloride 100 ml @ 200 mls/hr Q24H IVPB Last administered on 12/05/16 12:00; Admin Dose 200 MLS/HR; Start 12/03/16 at 12:00 Linezolid (Zyvox 600mg/D5W (Pmx)) 300 ml @ 300 mls/hr Q12 IVPB Last administered on 12/05/16 08:29; Admin Dose 300 MLS/HR; Start 12/03/16 at 10:30 Miscellaneous Information 1 ea NOTE XX ; Start 12/05/16 at 15:30 Glucose (Glutose) 15 gm Q15M PRN PO DECREASED GLUCOSE; Start 12/05/16 at 15:30 Glucose (Glutose) 22.5 gm Q15M PRN PO DECREASED GLUCOSE; Start 12/05/16 at 15: 30 Dextrose (D50w Syringe) 25 ml Q15M PRN IV DECREASED GLUCOSE; Start 12/05/16 at 15:30 Dextrose (D50w Syringe) 50 ml Q15M PRN IV DECREASED GLUCOSE; Start 12/05/16 at 15:30 Glucagon (Glucagen) 1 mg Q15M PRN IM DECREASED GLUCOSE; Start 12/05/16 at 15:30 Glucose (Glutose) 15 gm Q15M PRN BUCCAL DECREASED GLUCOSE; Start 12/05/16 at 15 :30 Insulin Aspart (Novolog Insulin Pen) NOVOLOG *MILD* ALGORI... Q6 SC ; Start at 18:00 JULAI DE GUZMAN MD Dec 05, 2016 19:11
--- NOTE | 2016-12-05 21:02 | CONS ---
DATE OF ADMISSION: 12/01/2016 DATE OF CONSULTATION: 12/04/2016 HISTORY OF PRESENT ILLNESS: The patient is in room 528. He is a 56-year-old male with a history of bipolar disorder, vent dependent respiratory failure, had his bumper buried in the subcutaneous tis jeffrey and the feeding was continued at [facility], so the patient developed an infection of the abdo anu wall, resulting in cellulitis and leukocytosis. He was started on antibiotic and, to some deg ree, has responded ___. No abdominal pain. OBJECTIVE: VITAL SIGNS: Stable. ABDOMEN: Soft. Tenderness is reduced, but persistent bowel sounds heard. The G-tube site opening appears to be closed, but from the subcutaneous area, the purulent material is coming out. The redn ess on the left side is noted. It is involving the entire left flank, going all the way up to the t high and this was marked with marker. EXTREMITIES: No edema. CENTRAL NERVOUS SYSTEM: Restless at times. LABORATORY DATA: WBC is trending downward. IMPRESSION: 1. Buried bumper syndrome, which was removed. 2. Cellulitis of the abdominal wall, involving mainly the left side. 3. Vent dependent respiratory failure. 4. Morbid obesity. 5. Bipolar disorder. 6. Atrial fibrillation. PLAN: To continue the antibiotic. We will monitor his cellulitis both clinically and with WBC coun t. Surgical followup in case patient needs I and D. It appears that the internal stoma has closed. I am going to pass the NG tube and will use resume the feeding. If there is no leakage of the for radha through the gastrocutaneous site, then we will continue the feeding. Dictated By: JULIA ACKERMAN/ALYSON Conf#: [id number] DID#: [id number] CC: JULIA DE GUZMAN MD; RAMY DOMINGUEZ DO;*EndCC*
[2016-12-05] MEDS: ATORVASTATIN 10 MG TAB GTB SCH (21:29)
[2016-12-06] VITALS (25 sets, daily range): BP systolic 112–134; BP diastolic 63–82; PULSE 94–110; RESP 16–20
[2016-12-06] MEDS: HYDROCODONE/APAP (5/325) TAB GTB PRN (00:12)
[2016-12-06] MEDS: AL HYDROX/MG HYDROX/SIMETH 30 ML CUP GTB SCH ×4 (00:12→18:08)
[2016-12-06] MEDS: METOPROLOL 5 MG INJ IV SCH ×5 (01:06→17:00)
[2016-12-06] MEDS: LORAZEPAM 2 MG INJ IV PRN (03:07)
[2016-12-06] MEDS: INSULIN ASPART [NOVOLOG] 3 ML PEN SC SCH ×4 (05:50→18:00)
[2016-12-06 05:55] LABS: ADD SCAN DIFF NO
[2016-12-06 06:09] LABS: ABNORMAL IP MESSAGE 1; BASOPHIL # 0.1 10^3/ul (0.0-0.1); BASOPHILS % 0.3 % (0.0-2.0); EOSINOPHILS # 0.1 10^3/ul (0.0-0.5); EOSINOPHILS % 0.8 % (0.0-7.0); HEMATOCRIT 27.1 % (42.0-52.0); HEMOGLOBIN 8.2 g/dl (14.0-18.0); LYMPHOCYTES # 1.4 10^3/ul (0.8-2.9); LYMPHOCYTES % 8.5 % (15.0-51.0); MEAN CORPUSCULAR HEMOGLOBIN 29.3 pg (29.0-33.0); MEAN CORPUSCULAR HGB CONC 30.3 g/dl (32.0-37.0); MEAN CORPUSCULAR VOLUME 96.8 fl (82.0-101.0); MEAN PLATELET VOLUME 9.3 fl (7.4-10.4); MONOCYTE # 0.9 10^3/ul (0.3-0.9); MONOCYTES % 5.6 % (0.0-11.0); NEUTROPHILS % 78.9 % (39.0-77.0); NUCLEATED RED BLOOD CELLS% 0.2 /100WBC (0.0-0.0); PLATELET COUNT 241 10^3/UL (140-415); RED CELL DISTRIBUTION WIDTH 14.7 % (11.5-14.5); WHITE BLOOD COUNT 16.5 10^3/ul (4.8-10.8)
[2016-12-06 06:26] LABS: CALCIUM 9.4 mg/dl (8.4-10.2); CREATININE 0.39 mg/dl (0.61-1.24); MAGNESIUM 1.9 mg/dl (1.7-2.5); PHOSPHORUS 3.2 mg/dl (2.5-4.9); POTASSIUM 4.4 mmol/L (3.5-5.1)
--- NOTE | 2016-12-06 07:27 | RADRPT ---
PROCEDURE: Chest. CLINICAL INDICATION: Chest pain. TECHNIQUE: 2 frontal views of the chest were obtained. COMPARISON: 12/05/2016. FINDINGS: The patient status post tracheostomy. There is a nasogastric tube extending to the stomach. The ca rdiac silhouette is within normal limits. The aortic arch is calcified. There are scattered inters titial infiltrates within the right lung. There is no vascular congestion or pleural effusion. The re is no pneumothorax. IMPRESSION: Right-sided scattered interstitial infiltrates, unchanged. Nasogastric tube in place. Aortic atherosclerosis. .Zack Olea MD, MD Date Time Electronically viewed and signed by .Zack Olea MD, MD on 12/06/2016 07:26 .T/
[2016-12-06] MEDS: ASCORBIC ACID 500 MG TAB GTB SCH (08:45)
[2016-12-06] MEDS: VALPROIC ACID LIQUID CUP 250 MG/5 ML CUP GTB SCH (08:45)
[2016-12-06] MEDS: predniSONE 20 MG TAB GTB SCH (08:45)
[2016-12-06] MEDS: MULTIVITAMINS THERAPEUTIC TAB GTB SCH (08:45)
[2016-12-06] MEDS: OLANZAPINE 5 MG TAB GTB SCH (08:45)
[2016-12-06] MEDS: LORATADINE 10 MG TAB GTB SCH (08:45)
[2016-12-06] MEDS: ASPIRIN (EC) 81 MG TAB PO SCH (08:45)
[2016-12-06] MEDS: LINEZOLID 600 MG/D5W (PMX) 300 ML IVPB SCH (08:46)
[2016-12-06] MEDS: ARTIFICIAL TEARS 15 ML OPH BOTH EYES SCH ×2 (08:46→12:51)
[2016-12-06] MEDS: morphine 2 MG INJ IV PRN (08:46)
[2016-12-06] MEDS: PANTOPRAZOLE 40 MG INJ IV SCH (08:46)
[2016-12-06] MEDS: ENOXAPARIN 40 MG/0.4 ML SYG SC SCH (08:56)
[2016-12-06] MEDS: ERTAPENEM SODIUM 1 GM in SOD CHLORIDE 0.9% 100 ML IVPB SCH (12:50)
--- NOTE | 2016-12-06 13:25 | PN ---
DATE: 12/06/2016 SUBJECTIVE: The patient is stable, agitated. The patient pulled out NG tube last night, reinserted . The patient continues to have drainage from his ostomy and abdominal site. No other events noted . OBJECTIVE: VITAL SIGNS: Blood pressure 125/78, respiration is 18, pulse 118, temperature 98.5. HEENT: Head is normocephalic. Pupils are reactive to light. NECK: Supple, with trach. HEART: Tachycardic. LUNGS: Show diminished breath sounds at base. ABDOMEN: Soft, positive colostomy with serosanguineous drainage. EXTREMITIES: Negative for clubbing, cyanosis, edema. DERMATOLOGIC: No rashes. MUSCULOSKELETAL: No joint effusions. NEUROLOGIC: No change in exam. MEDICATIONS: The patient's medications have been reviewed. LABORATORY DATA: Shows a white count of 16.5, hemoglobin 8.2, hematocrit 27.1, platelet count is 24 1. Sodium 135, potassium 4.4, chloride 92, BUN 18, creatinine 0.39. ASSESSMENT AND PLAN: 1. Sepsis secondary to abdominal wall cellulitis, abscess. The patient is on broad spectrum antibi otics, continue. Appreciate ID's evaluation. Follow up recommendations. 2. Abdominal abscess secondary to PEG tube malposition. The patient PEG tube was removed. There a ppears to be pocket of pus, currently draining. We will follow up with GI and general surgery for e valuation. Possible I and D may be needed. 3. Nutrition. The patient is status post NG tube placement. Continue tube feeding. 4. Tachycardia. Etiology is multifactorial, improving. Continue medical management. 5. Agitation, psychosis. Continue current psychotropic medications: 6. Ventilator dependent respiratory failure. Vent settings have been reviewed. ABG has been revie wed. Continue to monitor. 7. Anemia. Continue to monitor hemoglobin and hematocrit levels. 8. Bipolar disorder, psychosis as stated above. Continue Depakote, Zyprexa, Ativan. 9. Hypertension. Continue current blood pressure regimen. 10. History of coronary artery disease. Continue medical management. 11. Paroxysmal atrial fibrillation, currently sinus tachycardic. Continue to monitor. Follow up w [facility] cardiology. 12. Leukocytosis secondary to sepsis. Continue current medical management. 13. Gastrointestinal and deep venous thrombosis prophylaxis, continue proton pump inhibitor and [place] enox. DISPOSITION: We will place a Carlos evaluation. Dictated By: RAMY PERRY/ALYSON Conf#: [id number] DID#: [id number]
--- NOTE | 2016-12-06 15:06 | PN ---
Date/Time of Note Date/Time of Note DATE: 12/06/16 TIME: 15:04 Assessment/Plan Lines/Catheters IV Catheter Type (from Nrs): Saline Lock Estrella in Place (from Nrsg): No Assessment/Plan Assessment/Plan 56-year-old male with abdominal pain and sepsis and PEG tube malpositioned and abdominal wall abscess. * Continue broad-spectrum intravenous antibiotics and aggressive IV fluid hydration with pain control as needed. * Abscess seems to be spontaneously draining through PEG site, however he may still need further incision and drainage with possible debridement. However, this will be quite a morbid procedure for this patient given his chronic medical problems. * Await stabilization and medical clearance. * Now that NGT is in place, recommend CT Scan Abd/Pel with PO contrast down NGT to assess for possible persistent gastric fistula and follow up cellulitis and abscess The above was discussed with patient and nurse at the bedside. Further recommendations will be made based on the patient's clinical course. Subjective 24 Hr Interval Summary Still agitated, but appears less right now. Pulled out NGT which was re- inserted. Afebrile. Exam/Review of Systems Vital Signs Vitals Vital Signs Date Time Temp Pulse Resp B/P Pulse Ox O2 Delivery O2 Flow Rate FiO2 12/06/16 13:13 97 16 98 35 12/06/16 11:45 98.3 118/77 12/04/16 04:00 Mechanical Ventilator Trach Collar 12/03/16 06:06 2.0 Intake and Output 12/05/16 12/05/16 12/06/16 15:00 23:00 07:00 Intake Total 2220 ml 720 ml Output Total 200 ml 450 ml Balance 2020 ml 270 ml Exam Free Text/Dictation GENERAL APPEARANCE: He is an overweight male who is chronically debilitated and on the ventilator. Tremulous, agitated, awake and can respond to questions. NECK: Tracheostomy. CARDIOVASCULAR: S1, S2. Tachycardic. RESPIRATORY: Diminished breath sounds bilateral bases. ABDOMEN: Obese, but soft. There is, in the left upper quadrant, the old PEG tube site which is draining murky fluid currently with ostomy bag over it. There is significant cellulitis and edema which extends to the left flank and chest wall, unchanged. No fluctuance. No crepitus. Area is tender to palpation. There is no evidence of diffuse peritonitis. EXTREMITIES: Exhibit dependent edema bilaterally. Results Result Diagram: 12/06/16 0545 12/06/16 0520 RENZO LAI MD Dec 06, 2016 15:06
--- NOTE | 2016-12-06 15:21 | CONS ---
Date/Time of Note Date/Time of Note DATE: 12/06/16 TIME: 15:19 Assessment/Plan Assessment/Plan Chief Complaint/Hosp Course Consult dictated [id number] Problems: Additional Assessment/Plan Ventilator setting; AC of 16, tidal volume 500, PEEP of 5, 35% FiO2. Assessment recommendations; 1. Patient admitted for sepsis due to UTI as well as pneumonia with significant clinical improvement. 2. End-stage lung disease, on ventilator, patient unable to be weaned off. 3. History of paroxysmal atrial ablation. 4. History of bipolar disorder. 5. Underlying coronary artery disease. 6. Hypertension. Continue current supportive care. Consultation Date/Type/Reason Admit Date/Time Dec 01, 2016 at 13:25 Initial Consult Date 12/04/16 Type of Consultation: Pulmonary 24 HR Interval Summary Free Text/Dictation Patient condition remains stable. Remains awake and alert. However still has episodes of agitation requiring him to be restrained. Patient has been unable to be unrestrained for the last several weeks . General exam; middle-aged male, morbidly obese, on ventilator via tracheostomy currently in no distress awake and alert. Exam/Review of Systems Vital Signs Vitals Vital Signs Date Time Temp Pulse Resp B/P Pulse Ox O2 Delivery O2 Flow Rate FiO2 12/06/16 15:06 96 16 98 35 12/06/16 11:45 98.3 118/77 12/04/16 04:00 Mechanical Ventilator Trach Collar 12/03/16 06:06 2.0 Intake and Output 12/05/16 12/05/16 12/06/16 15:00 23:00 07:00 Intake Total 2220 ml 720 ml Output Total 200 ml 450 ml Balance 2020 ml 270 ml Exam HEENT exam; supple neck, no JVD. No lymphadenopathy. Midline trachea. No thyromegaly. Tracheostomy in place with clean insertion site. Patient has fair dentition. Chest examined; diminished but clear vessel. S1-S2 audible, no murmurs. Regular rhythm. Abdomen examination; soft, protuberant. G-tube in place. Colostomy in place. Bowel sounds audible. Extremity examination; no peripheral edema. GMAT INSTRUCTOR examination; patient is awake and follows simple commands and moves all 4 extremities. Results Result Diagram: 12/06/16 0545 12/06/16 0520 Results 24 hrs Laboratory Tests Test 12/05/16 17:25 12/06/16 00:00 12/06/16 05:20 12/06/16 05:45 Bedside Glucose 119 131 Sodium Level 135 Potassium Level 4.4 Chloride Level 92 L Carbon Dioxide Level 35 H Anion Gap 12 Blood Urea Nitrogen 18 Creatinine 0.39 L Glucose Level 83 # Calcium Level 9.4 Phosphorus Level 3.2 Magnesium Level 1.9 White Blood Count 16.5 #H Red Blood Count 2.80 L Hemoglobin 8.2 L Hematocrit 27.1 L Mean Corpuscular Volume 96.8 Mean Corpuscular Hemoglobin 29.3 Mean Corpuscular Hemoglobin Concent 30.3 L Red Cell Distribution Width 14.7 H Platelet Count 241 Mean Platelet Volume 9.3 Neutrophils % 78.9 H Lymphocytes % 8.5 L Monocytes % 5.6 Eosinophils % 0.8 Basophils % 0.3 Nucleated Red Blood Cells % 0.2 H Neutrophils # 13.0 H Lymphocytes # 1.4 Monocytes # 0.9 Eosinophils # 0.1 Basophils # 0.1 Nucleated Red Blood Cells # 0.0 Differential Comment AUTO w/SCAN Test 12/06/16 05:49 12/06/16 12:49 Bedside Glucose 104 107 Medications Medications Current Medications Acetaminophen (Tylenol Tab) 650 mg Q6 PRN GTB PAIN AND OR ELEVATED TEMP; Start 12/01/16 at 15:00 Acetaminophen (Tylenol Tab) 1,000 mg Q6H PRN PO MODERATE PAIN LEVEL 4-6; Start 12/01/16 at 15:00 Ascorbic Acid (Vitamin C) 500 mg DAILY GTB Last administered on 12/06/16 08:45 ; Admin Dose 500 MG; Start 12/02/16 at 09:00 Aspirin (Halfprin) 81 mg DAILY PO Last administered on 12/06/16 08:45; Admin Dose 81 MG; Start 12/02/16 at 09:00 Atorvastatin Calcium (Lipitor) 5 mg QHS GTB Last administered on 12/05/16 21: 29; Admin Dose 5 MG; Start 12/01/16 at 21:00 Bisacodyl (Dulcolax Supp) 10 mg DAILY PRN [place] CONSTIPATION; Start 12/01/16 at 15 :00 Docusate Sodium (Colace) 200 mg QHS PRN PO CONSTIPATION; Start 12/01/16 at 15: 00 Enoxaparin Sodium (Lovenox) 40 mg DAILY SC Last administered on 12/06/16 08:56 ; Admin Dose 40 MG; Start 12/02/16 at 09:00 Fentanyl (Duragesic 12 Mcg/Hr Patch) 1 patch Q72H PRN TRANSDERM PAIN Last administered on 12/01/16 23:52; Admin Dose 1 PATCH; Start 12/01/16 at 23:30 Acetaminophen/ Hydrocodone Bitart (Printer (5/325)) 1 tab Q6 PRN GTB SEVERE PAIN LEVEL 7-10 Last administered on 12/06/16 00:12; Admin Dose 1 TAB; Start at 15:00 Loratadine (Claritin) 10 mg DAILY GTB Last administered on 12/06/16 08:45; Admin Dose 10 MG; Start 12/02/16 at 09:00 Lorazepam (Ativan) 0.5 mg Q6 PRN GTB ANXIETY Last administered on 12/01/16 17: 29; Admin Dose 0.5 MG; Start 12/01/16 at 15:00 Al Hydrox/Mg Hydrox/Simethicone (Mag-Al Plus) 30 ml Q6 GTB Last administered on 12/06/16 12:50; Admin Dose 30 ML; Start 12/01/16 at 18:00 Magnesium Hydroxide (Milk Of Mag) 30 ml DAILY PRN GTB CONSTIPATION; Start 12/01 at 15:00 Metoprolol Tartrate (Lopressor) 25 mg BID GTB ; Start 12/01/16 at 21:00; Status Future Hold Multivitamins Therapeutic (Theragran) 1 tab DAILY GTB Last administered on 12/06 08:45; Admin Dose 1 TAB; Start 12/02/16 at 09:00 Olanzapine (Zyprexa) 5 mg DAILY GTB Last administered on 12/06/16 08:45; Admin Dose 5 MG; Start 12/02/16 at 09:00 Eye Lubricant (Artificial Tears Oph) 1 drop TID BOTH EYES Last administered on 12/06/16 12:51; Admin Dose 1 DROP; Start 12/01/16 at 21:00 Prednisone (Prednisone) 20 mg DAILY GTB Last administered on 12/06/16 08:45; Admin Dose 20 MG; Start 12/02/16 at 09:00 Valproate Sodium (Depakene Liquid Cup) 250 mg BID GTB Last administered on 12/06 08:45; Admin Dose 250 MG; Start 12/01/16 at 21:00 Pantoprazole (Protonix Iv) 40 mg DAILY IV Last administered on 12/06/16 08:46 ; Admin Dose 40 MG; Start 12/02/16 at 09:00 Metoprolol Tartrate (Lopressor) 2.5 mg Q4H IV Last administered on 12/06/16 12 :51; Admin Dose 2.5 MG; Start 12/02/16 at 09:00 Morphine Sulfate (morphine) 2 mg Q4H PRN IV MODERATE PAIN LEVEL 4-6 Last administered on 12/06/16 08:46; Admin Dose 2 MG; Start 12/02/16 at 09:00 Acetaminophen (Tylenol Supp) 650 mg Q6H PRN [place] TEMP 100 AND ABOVE Last administered on 12/02/16 17:48; Admin Dose 650 MG; Start 12/02/16 at 16:00 Lorazepam 2 mg 2 mg Q6H PRN IV agitation Last administered on 12/06/16 03:07; Admin Dose 2 MG; Start 12/02/16 at 16:30 Ertapenem 1 gm/ Sodium Chloride 100 ml @ 200 mls/hr Q24H IVPB Last administered on 12/06/16 12:50; Admin Dose 200 MLS/HR; Start 12/03/16 at 12:00 Linezolid (Zyvox 600mg/D5W (Pmx)) 300 ml @ 300 mls/hr Q12 IVPB Last administered on 12/06/16 08:46; Admin Dose 300 MLS/HR; Start 12/03/16 at 10:30 Miscellaneous Information 1 ea NOTE XX ; Start 12/05/16 at 15:30 Glucose (Glutose) 15 gm Q15M PRN PO DECREASED GLUCOSE; Start 12/05/16 at 15:30 Glucose (Glutose) 22.5 gm Q15M PRN PO DECREASED GLUCOSE; Start 12/05/16 at 15: 30 Dextrose (D50w Syringe) 25 ml Q15M PRN IV DECREASED GLUCOSE; Start 12/05/16 at 15:30 Dextrose (D50w Syringe) 50 ml Q15M PRN IV DECREASED GLUCOSE; Start 12/05/16 at 15:30 Glucagon (Glucagen) 1 mg Q15M PRN IM DECREASED GLUCOSE; Start 12/05/16 at 15:30 Glucose (Glutose) 15 gm Q15M PRN BUCCAL DECREASED GLUCOSE; Start 12/05/16 at 15 :30 Insulin Aspart (Novolog Insulin Pen) NOVOLOG *MILD* ALGORI... Q6 SC ; Start at 18:00 SHARON LLAMAS Dec 06, 2016 15:21
--- NOTE | 2016-12-06 21:04 | CONS ---
Date/Time of Note Date/Time of Note DATE: 12/06/16 TIME: 21:01 Assessment/Plan Assessment/Plan Chief Complaint/Hosp Course SUBJECTIVE: No acute changes, awake, on/off restless, in no distress, no fevers , no n/v/d MICROBIOLOGY: Blood culture remains negative. Urine culture growing VRE/E coli ESBL INDWELLINGS: Trach, Estrella. ANTIMICROBIALS: 1. Zyvox 2. Invanz PHYSICAL EXAMINATION: GENERAL: This is an obese, well-developed, ill-appearing, middle-aged man who is in no distress. HEENT: Head atraumatic, normocephalic. Sclerae anicteric. Buccal mucosa dry. NECK: Supple. Tracheostomy present. CHEST: Rise symmetrical. Breath sounds diminished. HEART: S1, S2. ABDOMEN: Obese, soft. G-tube site covered with dressing. EXTREMITIES: Without cyanosis. ASSESSMENT: 1. Sepsis. 2. Polymicrobial urinary tract infection. 3. G-tube malfunction, status post discontinued, with self draining abscess 4. Chronic respiratory failure. 5. Bipolar disorder. 6. History of oxacillin-sensitive Staphylococcus aureus bacteremia, treated. 7. Chronic obstructive pulmonary disease, status post pneumonia. PLAN: Clinically unchanged, increased wbs is alarming, continue abx, f/u labs in am, surgical rec-s noted, pending repeat CT abdomen with PO contrast DW staff Problems: Consultation Date/Type/Reason Admit Date/Time Dec 01, 2016 at 13:25 Type of Consultation: ID Exam/Review of Systems Vital Signs Vitals Vital Signs Date Time Temp Pulse Resp B/P Pulse Ox O2 Delivery O2 Flow Rate FiO2 12/06/16 20:18 98.1 72 18 112/66 96 12/06/16 19:34 35 12/06/16 18:00 Mechanical Ventilator Trach Collar 12/03/16 06:06 2.0 Intake and Output 12/05/16 12/05/16 12/06/16 14:59 22:59 06:59 Intake Total 2220 ml 720 ml Output Total 200 ml 450 ml Balance 2020 ml 270 ml Results Result Diagram: 12/06/16 0545 12/06/16 0520 Results 24 hrs Laboratory Tests Test 12/06/16 00:00 12/06/16 05:20 12/06/16 05:45 12/06/16 05:49 Bedside Glucose 131 104 Sodium Level 135 Potassium Level 4.4 Chloride Level 92 L Carbon Dioxide Level 35 H Anion Gap 12 Blood Urea Nitrogen 18 Creatinine 0.39 L Glucose Level 83 # Calcium Level 9.4 Phosphorus Level 3.2 Magnesium Level 1.9 White Blood Count 16.5 #H Red Blood Count 2.80 L Hemoglobin 8.2 L Hematocrit 27.1 L Mean Corpuscular Volume 96.8 Mean Corpuscular Hemoglobin 29.3 Mean Corpuscular Hemoglobin Concent 30.3 L Red Cell Distribution Width 14.7 H Platelet Count 241 Mean Platelet Volume 9.3 Neutrophils % 78.9 H Lymphocytes % 8.5 L Monocytes % 5.6 Eosinophils % 0.8 Basophils % 0.3 Nucleated Red Blood Cells % 0.2 H Neutrophils # 13.0 H Lymphocytes # 1.4 Monocytes # 0.9 Eosinophils # 0.1 Basophils # 0.1 Nucleated Red Blood Cells # 0.0 Differential Comment AUTO w/SCAN Test 12/06/16 12:49 12/06/16 18:06 Bedside Glucose 107 99 NANCY MOREL NP Dec 06, 2016 21:04
--- NOTE | 2016-12-06 22:01 | CONS ---
Date/Time of Note Date/Time of Note DATE: 12/06/16 TIME: 21:57 Assessment/Plan Assessment/Plan Additional Assessment/Plan IMPRESSION: 1. Buried bumper syndrome, which was removed. 2. Cellulitis of the abdominal wall, involving mainly the left side. 3. Vent dependent respiratory failure. 4. Morbid obesity. 5. Bipolar disorder. 6. Atrial fibrillation. Plan continue antibiotics g tube site drainage for culture repeat CT with contrast through NG tube stop feeding if formula leaks through g tube, Consultation Date/Type/Reason Admit Date/Time Dec 01, 2016 at 13:25 Type of Consultation: ID [id number] HR Interval Summary Constitutional: improved JULIA DE GUZMAN MD Dec 06, 2016 22:01
== END 2016-12-06 20:22 | disposition short-term general hospital (02) | DRG 393 ==
LOC: E/R 09:05 → TEL 13:25
PROVIDERS: ADMIT Internal Medicine; ATTEND Internal Medicine
PROC: 5A1955Z Respiratory Ventilation, Greater than 96 Consecutive Hours (ICD-10-PCS; principal; 2016-12-01)
PROC: 4A033R1 Measurement of Arterial Saturation, Peripheral, Percutaneous Approach (ICD-10-PCS; 2016-12-01)
DX: K94.22 Gastrostomy infection (principal); A41.9 Sepsis, unspecified organism; Z99.11 Dependence on respirator [ventilator] status; J18.9 Pneumonia, unspecified organism; E87.3 Alkalosis; I11.0 Hypertensive heart disease with heart failure; J44.0 Chronic obstructive pulmonary disease with (acute) lower respiratory infection; J96.11 Chronic respiratory failure with hypoxia; I50.9 Heart failure, unspecified; L03.311 Cellulitis of abdominal wall; L02.211 Cutaneous abscess of abdominal wall; J96.12 Chronic respiratory failure with hypercapnia; N39.0 Urinary tract infection, site not specified; K94.23 Gastrostomy malfunction; F14.90 Cocaine use, unspecified, uncomplicated; F31.9 Bipolar disorder, unspecified; D64.9 Anemia, unspecified; E87.5 Hyperkalemia; I25.10 Atherosclerotic heart disease of native coronary artery without angina pectoris; Z93.0 Tracheostomy status; R13.10 Dysphagia, unspecified; K21.9 Gastro-esophageal reflux disease without esophagitis; E66.01 Morbid (severe) obesity due to excess calories; Y83.3 Surgical operation with formation of external stoma as the cause of abnormal reaction of the patient, or of later complication, without mention of misadventure at the time of the procedure
CPT/HCPCS: 36415; 36600; 71010; 74176; 80048; 80053; 81001; 82803; 82962; 83605; 83735; 83880; 84100; 84443; 84484; 85025; 85610; 85730; 87040; 87081; 87086; 92610; 93005; 94002; 94003; 94799; 96374; 96375; C9113; J0692; J1170; J1335; J1630; J1650; J1815; J2060; J2270; J2543; J7030; J7042; J7512

== ENCOUNTER 2017-02-07 19:47 | Inpatient (IN) | payer MEDICARE, OTHER ==
[~2017-02-07] VITALS: Ht 182.9 cm; Wt 99.5 kg
[~2017-02-07 19:47] MED LIST changes: +ACET-141 GTB; +ACET-2047 GTB; -ACET325T33 PO; +ACET325T45 GTB; -ALBU90AE INHALATION; +AMIN887L6 GTB; -AMIO200T2 PO; -ASC500 PO; +ASCO500C7 GTB; +ASPI-664 GTB; -ASPI81TA3 PO; +ATOR10TA65 GTB; -ATOR10TA65 PO; +BISA10SU55 RC; -BISA10SU58 PR; -CRAN425C PO; -DEXT1DRO7 OP; -DIPH28.32 TOP; +DOCU-144 GTB; -DOCU-144 PO; +ENOX40DI2 SC; +FENT1PAT7 TD; +FURO-110 GTB; -GABA100C14 PO; -HYDR-902 PO; +HYDR-906 GTB; -LACT1CAP33 PO; +LANS30CA GTB; +LORA-441 GTB; +LORA10TA3 GTB; -LORA10TA3 PO; -MAG355OR14 PO; +MAG360OR42 GTB; +MAGN400O4 GTB; -MAGN400O4 PO; -METO-448 PO; +METO25TA4 GTB; -MONT10TA21 PO; -MULT-552 PO; +MULTI GTB; -NA P118E PR; +NA P135E RC; +OLAN5TAB5 GTB; -OMEG500C3 PO; -PANT40TA3 PO; +POLY15DR25 OP; +PRED20TA GTB; -RTATR NEB; +SPIR25TA G-TUBE; -TYL500 PO; +VLP250480 GTB
[2017-02-07] MEDS ORDERED: SOD CHLORIDE 0.9% 1,000 ML IV STA (19:50)
[2017-02-07] MEDS ORDERED: CEFEPIME 2GM/50 ML (PMX) 50 ML IVPB STA (19:50)
[2017-02-07] MEDS ORDERED: LINEZOLID 600 MG/D5W (PMX) 300 ML IVPB STA (19:50)
--- NOTE | 2017-02-07 20:01 | ERA ---
ER Documentation Chief Complaint Date/Time DATE: 02/07/17 TIME: 19:59 Chief Complaint bib ra from [facility] for desaturation HPI This is a 56-year-old male who is trach and ventilator dependent who presents with hypoxia and desaturation 88% suddenly at nursing home facility. The patient is a very limited historian given that he is nonverbal. He is nodding his head yes when asked if he is having shortness of breath but nods his head no when he is asked if he is having pain. He had a recent hospitalization for pneumonia. Remainder of HPI is very limited. ROS All systems reviewed and are negative except as per history of present illness. Medications Home Meds Reported Medications Enoxaparin Sodium* (Enoxaparin Sodium*) 30 Mg/0.3 Ml Syringe, 30 MG SC DAILY, SYR 02/07/17 Cholestyramine* (Questran*) 1 Pkt Susp, 4 GM PO BID, PACKET DO NOT GIVE VITHIN 2HR OF OTHER MEDS 02/07/17 Dextran 70/Hypromellose/Pf (ARTIFICIAL TEARS DROPS) 1 Each Droperette, 1 EACH OP TID 02/07/17 Nystatin (Nystatin) 1 Each Powder.ea., 1 EACH TOP DAILY Y for NEEDED 02/07/17 Mineral Oil* (Fleet* Mineral Oil Enema) 133 Ml Oil, 133 ML [place] NEEDED Y for RESP THERAPY, ENEMA 02/07/17 Bisacodyl (Dulcolax) 10 Mg Supp.rect, 10 MG RC DAILY Y for CONSTIPATION, SUPP.RECT 12/01/16 Docusate Sodium* (Colace*) 100 Mg Capsule, 200 MG GTB QHS Y for CONSTIPATION, # 30 CAP 12/01/16 Ascorbic Acid* (Vitamin C*) 500 Mg Capsule.sa, 500 MG GTB DAILY, CAP 12/01/16 Multivitamins* (Theragran*) 1 Tab Tab, 1 TAB GTB DAILY, TAB 12/01/16 Olanzapine* (Zyprexa*) 5 Mg Tablet, 5 MG GTB TID, #30 TAB 12/01/16 Acetaminophen* (Acetaminophen*) 650 Mg Tablet, 650 MG GTB Q6H Y for FEVER GREATER THAN 100.6, #30 TAB 12/01/16 Acetaminophen* (Acetaminophen*) 325 Mg Tablet, 650 MG GTB TRACH CHANGE Y for PAIN AND OR ELEVATED TEMP, #30 TAB GIVE 30MIN PRIOR 12/01/16 Hydrocodone/Acetaminophen ([place] 5-325 Tablet) 1 Each Tablet, 1 EACH GTB Q6 Y for SEVERE PAIN LEVEL 7-10, TAB 12/01/16 Acetaminophen* (Acetaminophen*) 650 Mg Tablet, 650 MG GTB Q6H Y for MILD PAIN LEVEL 1-3, #30 TAB 12/01/16 Acetaminophen* (Acetaminophen*) 500 MG Extra Strength Tablet, 1000 MG GTB Q6H Y for MODERATE PAIN LEVEL 4-6, TAB 12/01/16 Metoprolol Tartrate* (Lopressor*) 25 Mg Tablet, 25 MG GTB BID, #60 TAB HOLD ID SBP LOWER THAN 120 OR HR LOWER THAN 60 12/01/16 Loratadine* (Loratadine*) 10 Mg Tablet, 10 MG GTB DAILY, #30 TAB 12/01/16 Lansoprazole* (Lansoprazole*) 30 Mg Capsule.dr, 30 MG GTB BID, CAP 12/01/16 Atorvastatin Calcium (Atorvastatin Calcium) 10 Mg Tablet, 5 MG GTB QHS, #30 TAB 12/01/16 Aspirin (Low Dose Aspirin) 81 Mg Tablet.dr, 81 MG GTB DAILY, #30 TAB 12/01/16 Mag Hydrox/Al Hydrox/Simeth (ALUM-MAG HYDROXIDE-SIMETH LIQ) 360 Ml Oral.susp, 30 ML GTB DAILY for NEEDED 12/01/16 Discontinued Reported Medications Na Phos,M-B/Na Phos,Di-Ba (ENEMA READY TO USE) 135 Ml Enema, 135 ML RC EVERY 48 HOURS Y for CONSTIPATION, ENEMA 12/01/16 Magnesium Hydroxide* (Milk Of Magnesia*) 400 Mg/5 Ml Oral.susp, 30 ML GTB DAILY Y for CONSTIPATION, ML 12/01/16 Amino Acids/Protein Hydrolys (PRO-STAT AWC LIQUID) 887 Ml Liquid, 30 ML GTB DAILY SUGAR FREE 12/01/16 Valproic Acid* (Valproic Acid* Liq) 250 Mg/5 Ml Syrup, 250 MG GTB BID, ML 12/01/16 Lorazepam* (Ativan*) 0.5 Mg Tablet, 0.5 MG GTB Q6 Y for ANXIETY, #60 TAB 12/01/16 Spironolactone* (Aldactone*) 25 Mg Tablet, 25 MG G-TUBE DAILY, #30 TAB 12/01/16 Prednisone* (Prednisone*) 20 Mg Tab, 20 MG GTB DAILY, TAB 12/01/16 Furosemide* (Lasix*) 20 Mg Tablet, 20 MG GTB DAILY, TAB 12/01/16 Polyvinyl Alcohol (Tears Again) 15 Ml Drops, 1 DRP OP TID, BOTTLE 12/01/16 Fentanyl Patch* (Duragesic Patch*) 12 Mcg/Hr Transdermal Patch, 1 PATCH TD Q72H Y for PAIN, PATCH 50 MCG PATCH 12/01/16 Enoxaparin Sodium* (Enoxaparin Sodium*) 40 Mg/0.4 Ml Syringe, 40 MG SC DAILY, SYR 12/01/16 Allergies Allergies: Coded Allergies: vancomycin (Verified Allergy, Unknown, RASHES, 02/07/17) PMhx/Soc History of Surgery: Yes Anesthesia Reaction: No Hx Neurological Disorder: No Hx Respiratory Disorders: Yes Hx Cardiac Disorders: Yes Hx Psychiatric Problems: Yes Hx Miscellaneous Medical Probl: No Hx Alcohol Use: No Hx Substance Use: Yes Hx Tobacco Use: Yes FmHx Family History: No diabetes Physical Exam Vitals Vital Signs Date Time Temp Pulse Resp B/P Pulse Ox O2 Delivery O2 Flow Rate FiO2 02/07/17 21:52 98.6 117 24 171/110 100 Mechanical Ventilator 2.0 02/07/17 20:10 101 24 100 100 02/07/17 19:59 98.7 121 24 147/111 100 Mechanical Ventilator 2.0 02/07/17 19:51 98.7 120 18 100 Physical Exam General: Well developed, well nourished, no acute distress Head: Normocephalic, atraumatic. Eyes: Pupils equally reactive, EOM intact ENT: Moist mucous membranes Neck: Supple, no lymphadenopathy Respiratory: Rhonchi at the bases bilaterally Cardiovascular: Tachycardia, no murmurs, rubs, or gallops Abdominal: Soft, non-tender, non-distended, no peritoneal signs : Deferred MSK: No edema, no unilateral swelling Neurologic: Alert and oriented, following simple commands, limited movement of all extremities appears to be baseline Skin: No rash Psych: Normal mood Result Diagram: 02/07/17 1950 02/07/17 1950 Results 24 hrs Laboratory Tests Test 02/07/17 19:50 02/07/17 21:55 White Blood Count 16.410^3/ul Red Blood Count 2.8910^6/ul Hemoglobin 8.5g/dl Hematocrit 28.2% Mean Corpuscular Volume 97.6fl Mean Corpuscular Hemoglobin 29.4pg Mean Corpuscular Hemoglobin Concent 30.1g/dl Red Cell Distribution Width 18.6% Platelet Count 53425^3/UL Mean Platelet Volume 9.9fl Neutrophils % 87.6% Lymphocytes % 3.3% Monocytes % 7.7% Eosinophils % 0.7% Basophils % 0.2% Nucleated Red Blood Cells % 0.0/100WBC Neutrophils # (Manual) 1410^3/ul Lymphocytes # 0.510^3/ul Monocytes # 1.310^3/ul Eosinophils # 0.110^3/ul Basophils # 0.010^3/ul Nucleated Red Blood Cells # 0.010^3/ul Prothrombin Time 17.7Sec Prothrombin Time Ratio 1.4 INR International Normalized Ratio 1.45 Activated Partial Thromboplast Time 30.5Sec Sodium Level 143mmol/L Potassium Level 4.4mmol/L Chloride Level 88mmol/L Carbon Dioxide Level 40mmol/L Anion Gap 19 Blood Urea Nitrogen 12mg/dl Creatinine 0.51mg/dl Glucose Level 105mg/dl Lactic Acid Level 1.1mmol/L 1.0mmol/L Calcium Level 9.2mg/dl Total Bilirubin 0.1mg/dl Direct Bilirubin 0.00mg/dl Indirect Bilirubin 0.1mg/dl Aspartate Amino Transf (AST/SGOT) 21IU/L Alanine Aminotransferase (ALT/SGPT) 29IU/L Alkaline Phosphatase 129IU/L Troponin I < 0.012ng/ml Total Protein 7.0g/dl Albumin 3.3g/dl Globulin 3.70g/dl Albumin/Globulin Ratio 0.89 Current Medications Medications (Trade) Dose Ordered Sig/Luis Route PRN Reason Start Time Stop Time Status Last Admin Dose Admin Cefepime HCl 50 ml @ 100 mls/hr ONCE STAT IVPB 02/07/17 19:50 02/07/17 20:19 DC 02/07/17 20:14 Sodium Chloride 1,000 ml @ 1,000 mls/hr Q1H STAT IV 02/07/17 19:50 02/07/17 20:49 DC 02/07/17 20:14 Linezolid (Zyvox 600mg/D5W (Pmx)) 300 ml @ 300 mls/hr ONCE STAT IVPB 02/07/17 19:50 02/07/17 20:49 DC 02/07/17 19:50 Sodium Chloride (NS) 2,020 ml BOLUS OVER 2 HOURS STAT IV* 02/07/17 20:53 02/07/17 20:58 DC 02/07/17 22:10 IV Flush 10 ml 10 ml STK-MED ONCE .ROUTE 02/07/17 21:03 02/07/17 21:04 DC Sodium Chloride 100 ml @ ud STK-MED ONCE .ROUTE 02/07/17 21:03 02/07/17 21:04 DC Iohexol (Omnipaque) 100 ml @ ud STK-MED ONCE .ROUTE 02/07/17 21:03 02/07/17 21:04 DC Iohexol (Omnipaque 350mg/ ml) 50 ml STK-MED ONCE .ROUTE 02/07/17 21:03 02/07/17 21:04 DC Morphine Sulfate (morphine) 4 mg ONCE STAT IV 02/07/17 22:04 02/07/17 22:05 DC 02/07/17 22:08 Ondansetron HCl (Zofran Inj) 4 mg ONCE STAT IV 02/07/17 22:04 02/07/17 22:05 DC 02/07/17 22:08 Procedures/MDM EKG, MONITORS, & DIAGNOSTIC IMAGING: EKG: I reviewed and interpreted a 12-lead EKG. Rhythm: Sinus tachycardia Ectopy: None Intervals: No abnormalities ST segments: No elevations or depressions T waves: No contiguous inversions Chest x-ray: I reviewed and interpreted a 1 view of the chest Mediastinum: No enlargement Cardiac silhouette: No cardiomegaly Airspace: Bilateral pleural effusions patchy opacifications Bones: No evidence of fracture CTPA IMPRESSION: No evidence of pulmonary embolism or aortic dissection. Bibasilar atelectatic and consolidative changes. Bilateral small pleural effusions. Extensive emphysematous changes with bilateral upper lobe bullous disease. Mild vascular calcifications reflective of atherosclerosis. Status post tracheostomy. Mild compression deformities of T8 through T11 vertebral bodies, new compared with the 11/12/2016. There is no bony retropulsion. CT abdomen and pelvis IMPRESSION: Bibasilar atelectatic and consolidative changes with small pleural effusions. Extensive emphysematous changes. Mild lower abdominal free fluid. Bilateral small inguinal hernias containing fat. Subcutaneous stranding suggestive of anasarca. Vascular calcifications reflective of atherosclerosis. Mild multilevel compression deformities of the lumbar spine, unchanged. LAB INTERPRETATION: Leukocytosis of 16, anemia of 8.5, lactic acid of a 1.1, negative troponin MEDICAL DECISION MAKING: The patient presents for sudden hypoxia and is ventilator dependent. Differential exists and includes pulmonary embolism, pneumonia, mucous plug, pneumothorax. Given the patient's sinus tachycardia the patient meets Wells criteria for pulmonary embolism and warrants CTPA. Sepsis screening will be initiated and the patient will be given IV fluids. The patient will be placed back on his ventilator settings. ER COURSE: The patient does have leukocytosis and tachycardia and what appears to be healthcare associated pneumonia. His lactic acid is normal. This is consistent with sepsis but no evidence of severe sepsis. The patient's oxygen saturation is returned to baseline. No evidence of endorgan dysfunction. The patient did receive a 30 cc/kg bolus of saline. Broad-spectrum antibiotics. The patient received linezolid and cefepime given his antibiotic allergy history. The patient remains hemodynamically stable. He does not require central line or pressors at this time. The patient will be admitted for further management per The patient has chronic respiratory failure, this is not evidence of endorgan dysfunction. I kept the patient and/or family informed of laboratory and diagnostic imaging results throughout the emergency room course. DISPOSITION PLAN: Telemetry admission for management of healthcare associated pneumonia CONSULTATION: Accepting care team and consultations: I discussed the current laboratory data, diagnostic imaging and emergency care provided. Admitting team: Dr. Pereira Admitting team indication: Insurance directed Consulting services: [email or web address] Sepsis Documentation: Patient's infectious symptoms have not stabilized and the patient is at risk of rapid decompensation. The patient will be admitted for careful hydration, antibiotic therapy, and infectious source control. SEVERE SEPSIS CRITERIA: Infectious source: Healthcare associated pneumonia End organ damage indicated by: None SEPSIS MANAGEMENT Time of recognition of severe sepsis/septic shock: Not present 3 HOUR BUNDLE Blood cultures x 2 before broad-spectrum antibiotics: Yes 30 ml/kg NS bolus Completed Initial lactate less than 2 Repeat lactate less than 2 SEPTIC SHOCK ASSESSMENT: No lactic acid > 4.0 No persistent hypotension (SBP < 90 or 40 mmHg drop, MAP < 65) despite 30 mL/kg IV fluid bolus VOLUME REASSESSMENT FOR SEPTIC SHOCK: Reevaluation Time: Not required PERSISTENT HYPOTENSION TREATMENT: Comfort care No Central line Not Required Vasopressor started Not required I considered further perfusion assessment with CVP measurement, SCVO2, bedside ultrasound volume assessment, passive leg raise, trial of further fluid bolus. And proceeded with 30 ml/kg fluid bolus of NSS, broad spectrum antbiotics, and admission. CRITICAL CARE Critical care time 35 minutes Emergent fluid management while maintaining close respiratory support. Provision of immediate and broad-spectrum antibiotic therapy. Simultaneous assessment for possible sources in order to direct targeted therapy. Consideration for invasive and chemical support to prevent cardiopulmonary collapse. Critical care time is independent of procedures performed. Departure Diagnosis: Primary Impression: Healthcare-associated pneumonia Additional Impressions: Chronic respiratory failure Qualified Code: J96.10 - Chronic respiratory failure, unspecified whether with hypoxia or hypercapnia Sepsis Qualified Code: A41.9 - Sepsis, due to unspecified organism Condition: Stable TOMMY SCHUMACHER MD Feb 07, 2017 20:01
[2017-02-07 20:20] LABS: ABNORMAL IP MESSAGE 1; BASOPHILS % 0.2 % (0.0-2.0); EOSINOPHILS # 0.1 10^3/ul (0.0-0.5); EOSINOPHILS % 0.7 % (0.0-7.0); HEMATOCRIT 28.2 % (42.0-52.0); HEMOGLOBIN 8.5 g/dl (14.0-18.0); LYMPHOCYTES # 0.5 10^3/ul (0.8-2.9); LYMPHOCYTES % 3.3 % (15.0-51.0); MEAN CORPUSCULAR HEMOGLOBIN 29.4 pg (29.0-33.0); MEAN CORPUSCULAR HGB CONC 30.1 g/dl (32.0-37.0); MEAN CORPUSCULAR VOLUME 97.6 fl (82.0-101.0); MEAN PLATELET VOLUME 9.9 fl (7.4-10.4); MONOCYTE # 1.3 10^3/ul (0.3-0.9); MONOCYTES % 7.7 % (0.0-11.0); NEUTROPHILS % 87.6 % (39.0-77.0); PLATELET COUNT 249 10^3/UL (140-415); POSITIVE DIFF @See below; RED BLOOD COUNT 2.89 10^6/ul (4.70-6.10); RED CELL DISTRIBUTION WIDTH 18.6 % (11.5-14.5); WHITE BLOOD COUNT 16.4 10^3/ul (4.8-10.8)
[2017-02-07] MEDS ORDERED: MINE133E23 PR (20:31)
[2017-02-07 20:41] LABS: ALANINE AMINOTRANSFERASE 29 IU/L (13-69); ALBUMIN 3.3 g/dl (3.3-4.9); ALBUMIN/GLOBULIN RATIO 0.89; ALKALINE PHOSPHATASE 129 IU/L (42-121); ANION GAP 19 (8-16); ASPARTATE AMINO TRANSFERASE 21 IU/L (15-46); BILIRUBIN,INDIRECT 0.1 mg/dl (0-1.1); BILIRUBIN,TOTAL 0.1 mg/dl (0.2-1.3); BLOOD UREA NITROGEN 12 mg/dl (7-20); CALCIUM 9.2 mg/dl (8.4-10.2); CHLORIDE 88 mmol/L (97-110); CREATININE 0.51 mg/dl (0.61-1.24); GLUCOSE 105 mg/dl (70-220); POTASSIUM 4.4 mmol/L (3.5-5.1); SODIUM 143 mmol/L (135-144)
[2017-02-07 20:45] LABS: INR 1.45; PARTIAL THROMBOPLASTIN TIME 30.5 Sec (25.0-35.0); PROTIME 17.7 Sec (12.2-14.2); PT RATIO 1.4
[2017-02-07 20:48] LABS: CARBON DIOXIDE 40 mmol/L (21-31)
[2017-02-07] MEDS ORDERED: NYST1POW31 TOP (20:49)
[2017-02-07] MEDS ORDERED: DEXT1DRO7 OP (20:51)
[2017-02-07] MEDS ORDERED: SODIUM CHLORIDE 0.9% 1L BAG IV* STA (20:53)
[2017-02-07 20:54] LABS: TROPONIN-I < 0.012 ng/ml (0.00-0.12)
[2017-02-07] MEDS ORDERED: ENOX30DI2 SC (20:54)
[2017-02-07] MEDS ORDERED: QUESTRAN PO (20:54)
[2017-02-07] MEDS ORDERED: IOHEXOL 100 ML ONE (21:03)
[2017-02-07] MEDS ORDERED: IOHEXOL 350MG/ML 50 ML BTL ONE (21:03)
[2017-02-07] MEDS ORDERED: SOD CHLORIDE 0.9% 100 ML ONE (21:03)
[2017-02-07] MEDS ORDERED: ONDANSETRON 4 MG INJ IV STA (22:04)
[2017-02-07] MEDS ORDERED: morphine 4 MG/ML VIAL IV STA ×2 (22:04→23:12)
--- NOTE | 2017-02-07 22:11 | RADRPT ---
PROCEDURE: Portable chest x-ray. CLINICAL INDICATION: Sepsis. TECHNIQUE: Portable AP view of the chest. COMPARISON: 01/05/2017. FINDINGS: There is a tracheostomy tube in place. Increased patchy opacities are noted at both lung bases. The cardiac silhouette is magnified. There are minimal aortic calcifications. There may be small bilat eral pleural effusions. There is no pneumothorax. IMPRESSION: 1. Increased patchy opacities at both lung bases, probably atelectasis. 2. Possible small bilateral pleural effusions. 3. Tracheostomy tube. RPTAT: HTAR .Parker Finn MD, Date Time Electronically viewed and signed by .Parker Finn MD, on 02/07/2017 22:11 .R/
--- NOTE | 2017-02-07 22:23 | RADRPT ---
PROCEDURE: CT angiogram of the chest with contrast. CLINICAL INDICATION: Chest pain. TECHNIQUE: CT angiogram of the chest was obtained using a multi-detector high-resolution CT. Con tiguous axial images were obtained during the dynamic injection of 100 cc of Omnipaque 350 intraveno us contrast. Coronal and sagittal reformatted images were obtained. 3-D reformatted images were al so obtained. Images were reviewed on a PACS workstation. One or more of the following dose reduction techniques were used: - Automated exposure control. - Adjustment of the mA and/or kV according to patient size. - Use of iterative reconstruction technique. Exam CTD/vol = 16.12 mGy. Total exam DLP = 1682.72 mGy-cm. COMPARISON: 11/12/2016. FINDINGS: The main pulmonary artery followed to the segmental divisions are well opacified. There is no filli ng defect or evidence of pulmonary embolism. The heart is normal in size. There is no pericardial thickening or effusion. The aorta is of normal course and caliber with scattered atherosclerotic ca lcifications. There is no evidence of aortic aneurysm or dissection. The patient is status post tracheostomy. The visualized thyroid is unremarkable. There are no enla rged axillary lymph nodes. There are no enlarged mediastinal or hilar lymph nodes by CT criteria. There are extensive emphysematous changes with bilateral upper lobe bullous changes. There are biba silar atelectatic and consolidative changes. There are bilateral small pleural effusions. There are mild compression deformities of T8, T9, T10 and T11 vertebral bodies with up to over 20% l oss in vertebral body heights. There is no bony retropulsion. Limited evaluation of the upper abdo men is unremarkable. IMPRESSION: No evidence of pulmonary embolism or aortic dissection. Bibasilar atelectatic and consolidative changes. Bilateral small pleural effusions. Extensive emphysematous changes with bilateral upper lobe bullous disease. Mild vascular calcifications reflective of atherosclerosis. Status post tracheostomy. Mild compression deformities of T8 through T11 vertebral bodies, new compared with the 11/12/2016. There is no bony retropulsion. .Zack Olea MD, Date Time Electronically viewed and signed by .Zack Olea MD, on 02/07/2017 22:23 .T/
--- NOTE | 2017-02-07 22:31 | RADRPT ---
PROCEDURE: CT Abdomen and pelvis with contrast. CLINICAL INDICATION: Abdominal pain. TECHNIQUE: CT scan of the abdomen and pelvis with contrast was performed on a multi-detector high -resolution CT scanner. The patient was scanned following the uncomplicated administration of 100 c c of Omnipaque 350 intravenous contrast. Coronal and sagittal reformatted images were obtained from the axial source images. Images were reviewed on a high-resolution PACS workstation. One or more of the following dose reduction techniques were used: - Automated exposure control. - Adjustment of the mA and/or kV according to patient size. - Use of iterative reconstruction technique. Exam CTD/vol = 16.12 mGy. Total exam DLP = 1682.72 mGy-cm. COMPARISON: 01/28/2017. FINDINGS: Evaluation of the lung bases demonstrates extensive emphysematous changes. There are bibasilar atel ectatic and consolidative changes and small pleural effusions. Abdomen: The liver is normal in size. There is no focal mass or dilatation of the biliary tree. T he gallbladder is not distended. The spleen, pancreas and bilateral adrenal glands are within chiquita l limits. Bilateral kidneys are normal in size with symmetric enhancement. There is no focal mass, hydronephrosis or hydroureter. There is no retroperitoneal adenopathy. The abdominal aorta is of normal caliber with scattered atherosclerotic calcifications. There is no abnormal bowel wall thickening or distension. There is no bowel obstruction or free air . The appendix is not visualized. There is no diverticulosis or diverticulitis. There is mild ritu e fluid within the lower abdomen. Pelvis: The bladder is unremarkable. There are bilateral small inguinal hernias containing fat. The prostate and seminal vesicles are within normal limits. There is no significant pelvic adenopathy or free fluid. There is subcutaneous stranding suggestive of anasarca. Evaluation of the osseous structures demonstrates no suspicious lytic or blastic lesion. There are m ild compression deformities of the L1 through L4 vertebral bodies which are unchanged from the prior study. There is no bony retropulsion. IMPRESSION: Bibasilar atelectatic and consolidative changes with small pleural effusions. Extensive emphysematous changes. Mild lower abdominal free fluid. Bilateral small inguinal hernias containing fat. Subcutaneous stranding suggestive of anasarca. Vascular calcifications reflective of atherosclerosis. Mild multilevel compression deformities of the lumbar spine, unchanged. .Zack Olea MD, MD Date Time Electronically viewed and signed by .Zack Olea MD, MD on 02/07/2017 22:30 .T/
[2017-02-07 22:42] LABS: AADO2 Arterial 250.1 mmHg (7.0-24.0); Allen Test ACCEPTAB; Arterial Base Excess 12.4 mmol/L (-3.0-3); Arterial COHb 0.3 % (0.0-3.0); Arterial HCO3 39.2 mmol/L (22.0-26.0); Arterial MetHb 0.4 % (0.0-1.5); Arterial Total Hemglobin 9.1 g/dl (12.0-18.0); MODE VENT - AC
[2017-02-07] MEDS ORDERED: ONDANSETRON 4 MG INJ IV PRN (23:00)
[2017-02-07] MEDS ORDERED: ACETAMINOPHEN 325 MG TAB PO PRN (23:00)
[2017-02-08] VITALS (14 sets, daily range): BP systolic 116–133; BP diastolic 70–86; PULSE 88–106; RESP 18–24; TEMP 98; Ht 182.9 cm; Wt 99.5 kg
[2017-02-08] MEDS ORDERED: ALBUTEROL 0.083% (NEB) 2.5 MG/3 ML AMP HHN PRN (02:30)
[2017-02-08] MEDS ORDERED: ACETAMINOPHEN 500 MG TAB PO PRN (02:30)
[2017-02-08] MEDS ORDERED: ONDANSETRON 4 MG INJ IV PRN (02:30)
[2017-02-08] MEDS ORDERED: BISACODYL 10 MG SUPP PR PRN (02:30)
[2017-02-08] MEDS ORDERED: HYDROCODONE/APAP (5/325) TAB PO PRN (02:30)
[2017-02-08] MEDS ORDERED: NYSTATIN 30 GM POWDER BTL TOP PRN (02:30)
[2017-02-08] MEDS ORDERED: ACETAMINOPHEN 325 MG TAB GTB PRN ×3 (02:30)
[2017-02-08] MEDS ORDERED: MINERAL OIL 133 ML ENEMA PR PRN (02:30)
[2017-02-08] MEDS ORDERED: HYDROCODONE/APAP (5/325) TAB GTB PRN (02:30)
[2017-02-08] MEDS ORDERED: NACL 0.9% 3 ML SYG IV SCH (02:30)
[2017-02-08] MEDS: MEROPENEM 1 GM/50ML(PMX) 50 ML IVPB SCH ×3 (06:09→23:30)
[2017-02-08] MEDS ORDERED: morphine 4 MG/ML VIAL IV STA (06:26)
--- NOTE | 2017-02-08 08:16 | EN ---
Date/Time of Note Date/Time of Note DATE: 02/08/17 TIME: 08:15 ER Progress Note Observation Note: Time: 4 hours Family Hx: No Hypertension Evaluation: Multiple exams showed improving symptoms and no evidence of clinical decompensation LUCY DALAL DO Feb 08, 2017 08:16
[2017-02-08] MEDS: ASPIRIN (EC) 81 MG TAB PO SCH (09:00)
[2017-02-08] MEDS: ARTIFICIAL TEARS 15 ML OPH BOTH EYES SCH ×3 (10:10→20:46)
[2017-02-08] MEDS: LANSOPRAZOLE 30 MG CAP GTB SCH ×2 (10:11→20:48)
[2017-02-08] MEDS: OLANZAPINE 5 MG TAB GTB SCH ×3 (10:11→23:29)
[2017-02-08] MEDS: CHOLESTYRAMINE 4 GM PACKET PO SCH ×2 (10:11→20:48)
[2017-02-08] MEDS: MULTIVITAMINS THERAPEUTIC TAB GTB SCH (10:11)
[2017-02-08] MEDS: ASCORBIC ACID 500 MG TAB GTB SCH (10:11)
[2017-02-08] MEDS: LORATADINE 10 MG TAB GTB SCH (10:11)
[2017-02-08] MEDS: METOPROLOL 25 MG TAB GTB SCH ×2 (10:12→20:47)
[2017-02-08] MEDS: PANTOPRAZOLE (EC) 40 MG TAB PO SCH (10:16)
[2017-02-08] MEDS: AL HYDROX/MG HYDROX/SIMETH 30 ML CUP GTB SCH (10:16)
[2017-02-08] MEDS: ENOXAPARIN 40 MG/0.4 ML SYG SC SCH (10:17)
--- NOTE | 2017-02-08 15:45 | HP ---
Date/Time of Note Date/Time of Note DATE: 02/08/17 TIME: 15:43 Assessment/Plan VTE Prophylaxis VTE Prophylaxis Intervention: other Assessment/Plan Assessment/Plan 1. Ventilator dependent respiratory failure. Vent settings have been reviewed. ABG has been reviewed. Continue to monitor. will treat for possible HCAP 2. Sepsis secondary to abdominal wall cellulitis, abscess. The patient is on broad spectrum antibiotics. s/p CT guided left flank abdominal wall fluid collection drainage on 12/29. follow up ct on 01/05 showed much smaller left flank abdominal wall fluid collection. he had CT guided left flank abdominal wall fluid collection drainage on 01/18. The patient pulled out his tubes. Most recent imaging studies did not show a large fluid collection 3. Nutrition. currently taking PO's and was weaned off TPN 4. Tachycardia. Etiology is multifactorial, improving. Continue medical management. 5. Agitation, psychosis. Continue current psychotropic medications: 6. Abdominal abscess secondary to PEG tube malposition. (see above) 7. Anemia. s/p transfusion on 12/29 8. Bipolar disorder, psychosis as stated above. Continue Depakote, Zyprexa, Ativan. 9. Hypertension. Continue current blood pressure regimen. 10. History of coronary artery disease. Continue medical management. 11. Paroxysmal atrial fibrillation, currently sinus tachycardic. Continue to monitor. Follow up with cardiology. 12. Leukocytosis secondary to sepsis. Continue current medical management. HPI/ROS Admit Date/Time Admit Date/Time Hx of Present Illness This is a 56-year-old male well known to me with a past medical history of ventilator-dependent respiratory failure, status post tracheostomy, history of COPD, history of dysphagia, status post PEG, history of coronary artery disease , hypertension, paroxysmal atrial fibrillation, anemia, GERD, bipolar disorder, who was brought in from a subacute facility due to abdominal pain. Upon arrival in the emergency room, the patient had a CT scan of the abdomen and pelvis. It showed findings of a large collection of debris and gas in the left anterior and abdominal chest wall with gastrostomy tube in the compartment musculature of the rectus sheath. In the emergency room, he was given IV fluids, IV antibiotics. The patient was given IV pain medications. He was transferred to [facility] on 12/06/2016 for his acute VDRF and further weaning d/w nurses ct showed large intraabdominal wall fluid collection and he had successful CT guided left flank abdominal wall fluid collection drainage on 12/[address] on 01/05 showed much smaller left flank abdominal wall fluid collection now measuring approximately 7.0 x 1.3 x 5.0 cm. Drainage catheter in satisfactory position at this site. he had another successful CT guided left flank abdominal wall fluid collection drainage on 01/18 ct on 01/21 showed near resolution of left abdominal wall fluid collection or abscess. He pulled out his drains few days ago most recent imaging studies did not show much of a fluid collection was started on TPN on 12/30 and eventually weaned off on 02/04 He was dc'd to [facility] on 02/07 however he became hypoxemic and was brought back to [facility] ER immediately where he is now being admitted for possible HCAP d/w nurses PAST MEDICAL HISTORY: As stated above, history of ventilator-dependent respiratory failure, history of dysphagia, status post PEG, history of COPD, history of coronary artery disease, history of hypertension, history of bipolar disorder. PAST SURGICAL HISTORY: Status post trach, status post PEG. FAMILY HISTORY: Noncontributory. SOCIAL HISTORY: Previous history of drug use in the past, cigarette smoking. ALLERGIES: NO KNOWN DRUG ALLERGIES. REVIEW OF SYSTEMS: A 14-point review of systems was conducted. Pertinent positives stated in HPI; otherwise, negative. PHYSICAL EXAMINATION: HEENT: Head is normocephalic. Pupils are reactive to light. NECK: Supple. HEART: Regular rate. LUNGS: Show diminished breath sounds at base. ABDOMEN: Soft, positive tenderness with palpation. Positive gastrostomy tube noted. Positive voluntary guarding. No rebound. EXTREMITIES: Negative for clubbing or cyanosis. No edema. DERMATOLOGIC: No rashes. MUSCULOSKELETAL: No joint effusions. NEUROLOGIC: No focal deficits. PMH/Family/Social Social History Smoking Status: Former smoker Exam/Review of Systems Vital Signs Vitals Vital Signs Date Time Temp Pulse Resp B/P Pulse Ox O2 Delivery O2 Flow Rate FiO2 02/08/17 13:15 98.0 91 24 121/79 100 Mechanical Ventilator 10.0 02/08/17 09:51 30 Intake and Output 02/07/17 02/07/17 02/08/17 15:00 23:00 07:00 Intake Total 300 ml 1050 ml Balance 300 ml 1050 ml Labs Result Diagram: 02/07/17 1950 02/07/17 1950 Medications Medications Current Medications Sodium Chloride (NS) 1,000 ml @ 50 mls/hr Q20H IV ; Start 02/08/17 at 02:07 Ondansetron HCl (Zofran Inj) 4 mg Q6H PRN IV NAUSEA AND/OR VOMITING; Start at 02:30 Acetaminophen/ Hydrocodone Bitart ([place] (5/325)) 1 tab Q6H PRN PO MODERATE PAIN LEVEL 4-6 Last administered on 02/08/17 10:16; Admin Dose 1 TAB; Start at 02:30 Pantoprazole (Protonix Tab) 40 mg DAILY@06 PO Last administered on 02/08/17 10 :16; Admin Dose 40 MG; Start 02/08/17 at 06:00 Enoxaparin Sodium (Lovenox) 40 mg DAILY SC Last administered on 02/08/17 10:17 ; Admin Dose 40 MG; Start 02/08/17 at 09:00 Acetaminophen (Tylenol Tab) 1,000 mg Q6H PRN PO MODERATE PAIN LEVEL 4-6; Start 02/08/17 at 02:30 Acetaminophen (Tylenol Tab) 650 mg Q6H PRN GTB FEVER GREATER THAN 100.6; Start 02/08/17 at 02:30 Acetaminophen (Tylenol Tab) 650 mg Q6H PRN GTB MILD PAIN LEVEL 1-3; Start 02/08 at 02:30 Ascorbic Acid (Vitamin C) 500 mg DAILY GTB Last administered on 02/08/17 10:11 ; Admin Dose 500 MG; Start 02/08/17 at 09:00 Aspirin (Halfprin) 81 mg DAILY PO Last administered on 02/08/17 09:00; Admin Dose 81 MG; Start 02/08/17 at 09:00 Atorvastatin Calcium (Lipitor) 5 mg QHS GTB ; Start 02/08/17 at 21:00 Bisacodyl (Dulcolax Supp) 10 mg DAILY PRN [place] CONSTIPATION; Start 02/08/17 at 02 :30 Cholestyramine Resin (Questran) 1 pkt BID PO Last administered on 02/08/17 10: 11; Admin Dose 1 PKT; Start 02/08/17 at 09:00 Docusate Sodium (Colace) 200 mg QHS PRN PO CONSTIPATION; Start 02/08/17 at 02: 30 Lansoprazole (Prevacid) 30 mg BID GTB Last administered on 02/08/17 10:11; Admin Dose 30 MG; Start 02/08/17 at 09:00 Loratadine (Claritin) 10 mg DAILY GTB Last administered on 02/08/17 10:11; Admin Dose 10 MG; Start 02/08/17 at 09:00 Al Hydrox/Mg Hydrox/Simethicone (Mag-Al Plus) 30 ml DAILY GTB Last administered on 02/08/17 10:16; Admin Dose 30 ML; Start 02/08/17 at 09:00 Metoprolol Tartrate (Lopressor) 25 mg BID GTB Last administered on 02/08/17 10 :12; Admin Dose 25 MG; Start 02/08/17 at 09:00 Mineral Oil (Fleet Mineral Oil Enema) 133 ml DAILY PRN [place] RESP THERAPY; Start 02/08/17 at 02:30 Multivitamins Therapeutic (Theragran) 1 tab DAILY GTB Last administered on 02/08 10:11; Admin Dose 1 TAB; Start 02/08/17 at 09:00 Olanzapine (Zyprexa) 5 mg TID GTB Last administered on 02/08/17 10:11; Admin Dose 5 MG; Start 02/08/17 at 09:00 Eye Lubricant (Artificial Tears Oph) 1 drop TID BOTH EYES Last administered on 02/08/17 13:00; Admin Dose 1 DROP; Start 02/08/17 at 09:00 Nystatin 1 applic 1 applic DAILY PRN TOP NEEDED; Start 02/08/17 at 02:30 Meropenem/Sodium Chloride (Merrem 1 Gm/50 ml (Pmx)) 50 ml @ 100 mls/hr Q8 IVPB Last administered on 02/08/17 06:09; Admin Dose 100 MLS/HR; Start 02/08/17 at 06:00 Acetaminophen/ Hydrocodone Bitart ([place] (5/325)) 2 tab Q6 PRN PO SEVERE PAIN LEVEL 7-10; Start 02/08/17 at 03:51 DAMON BOSWELL DO Feb 08, 2017 15:45
[2017-02-08] MEDS: HYDROCODONE/APAP (5/325) TAB PO PRN ×2 (16:29→22:13)
[2017-02-08] MEDS: SOD CHLORIDE 0.9% 1,000 ML IV SCH ×2 (19:00→22:13)
[2017-02-08] MEDS: ATORVASTATIN 10 MG TAB GTB SCH (20:48)
--- NOTE | 2017-02-08 23:59 | CONS ---
Date/Time of Note Date/Time of Note DATE: 02/08/17 TIME: 23:58 Assessment/Plan Assessment/Plan Chief Complaint/Hosp Course 1. VDRF with pna: comfortable on vent -pulmonary toilet -abx -continue vent support 2. PNA: chronic vent, ? 2/2 #5 -abx -as above 3. Abdominal fluid collection: s/p drainage and drain placement (removed by patient) no abdominal discomfort -cont abx per sensitivity 4. Sepsis with leukocytosis: / #2,3 -supportive -as above 5. Dysphagia: patient states was getting nutrition orally in rehab .-swallow eval 6. Anemia.:status post blood transfusion -monitor and transfuse prn 7. Hypertension -medical optimization -weight loss encouraged 8. Chronic kidney disease -medical management -avoid nephrotoxic meds -renally dose meds Patient seen and examined in collaboration with Dr Boubacar Boswell. Thank you. Problems: Consultation Date/Type/Reason Admit Date/Time Date of Consultation: Feb 08, 2017 Type of Consultation: surgical Reason for Consultation abdominal fluid collection Referring Provider: DAMON BOSWELL DO Hx of Present Illness Dima Tucker is a 56-year-old male who is known to us with multiple comorbidities who had recent history of G-tube leak with intraabdominal wall fluid collection status post multiple drainage and catheter drain placement that the patient himself pulled out. Subsequent imaging studies did not show much of a fluid collection. He was dc'd to [facility] on 02/07 however he became hypoxemic and was brought back to [facility] ER immediately where he is now being admitted for possible HCAP. CT abdomen shows mild abdominal free fluid. General surgery was called to evaluate. Constitutional: No chills, No diaphoresis Eyes: No visual change Respiratory: No pain, No shortness of breath Cardiovascular: No edema, No lightheadedness Gastrointestinal: No constipation, No diarrhea, No nausea, No no complaints, No vomiting Genitourinary: No dysuria Skin: No bruising Neurologic: No confusion, No dizziness Endocrine: No polyuria Lymphatic: No adenopathy, No lymphadema, No no complaints, No other, No tender nodes Psychological: No nl mood/affect Past Medical History ventilator-dependent respiratory failure status post tracheostomy COPD dysphagia status post PEG coronary artery disease hypertension paroxysmal atrial fibrillation anemia GERD bipolar disorder Past Surgical History tracheostomy PEG placement I&D abdomen Family History Significant Family History: no pertinent family hx Social History Alcohol Use: none Smoking Status: Former smoker Drug Use: none Exam/Review of Systems Vital Signs Vitals Vital Signs Date Time Temp Pulse Resp B/P Pulse Ox O2 Delivery O2 Flow Rate FiO2 02/08/17 22:00 103 22 116/72 100 02/08/17 19:00 98.1 Mechanical Ventilator 02/08/17 18:08 40 02/08/17 17:15 10.0 Intake and Output 02/07/17 02/07/17 02/08/17 15:00 23:00 07:00 Intake Total 300 ml 1050 ml Balance 300 ml 1050 ml Exam Constitutional: alert, well developed Psych: nl mood/affect Head: atraumatic, normocephalic Eyes: nl lids, nl sclera ENMT: mucosa pink and moist, nl nasal mucosa & septum Neck: other (trach) Respiratory: No labored breathing Cardiovascular: edema (min BLE), regular rate and rhythm Gastrointestinal: distended (min), soft, surgical scars, No tender Genitourinary - Male: No CVA tenderness Musculoskeletal: muscle weakness Extremities: pitting pedal edema (+2 ble) Neurological: nl mental status, nl strength Skin: No rash or lesions Results Result Diagram: 02/07/17 1950 02/07/17 1950 Medications Medications Current Medications Sodium Chloride (NS) 1,000 ml @ 50 mls/hr Q20H IV Last administered on 22:13; Admin Dose 50 MLS/HR; Start 02/08/17 at 02:07 Ondansetron HCl (Zofran Inj) 4 mg Q6H PRN IV NAUSEA AND/OR VOMITING; Start at 02:30 Acetaminophen/ Hydrocodone Bitart ([place] (5/325)) 1 tab Q6H PRN PO MODERATE PAIN LEVEL 4-6 Last administered on 02/08/17 10:16; Admin Dose 1 TAB; Start at 02:30 Pantoprazole (Protonix Tab) 40 mg DAILY@06 PO Last administered on 02/08/17 10 :16; Admin Dose 40 MG; Start 02/08/17 at 06:00 Enoxaparin Sodium (Lovenox) 40 mg DAILY SC Last administered on 02/08/17 10:17 ; Admin Dose 40 MG; Start 02/08/17 at 09:00 Acetaminophen (Tylenol Tab) 1,000 mg Q6H PRN PO MODERATE PAIN LEVEL 4-6; Start 02/08/17 at 02:30 Acetaminophen (Tylenol Tab) 650 mg Q6H PRN GTB FEVER GREATER THAN 100.6; Start 02/08/17 at 02:30 Acetaminophen (Tylenol Tab) 650 mg Q6H PRN GTB MILD PAIN LEVEL 1-3; Start 02/08 at 02:30 Ascorbic Acid (Vitamin C) 500 mg DAILY GTB Last administered on 02/08/17 10:11 ; Admin Dose 500 MG; Start 02/08/17 at 09:00 Aspirin (Halfprin) 81 mg DAILY PO Last administered on 02/08/17 09:00; Admin Dose 81 MG; Start 02/08/17 at 09:00 Atorvastatin Calcium (Lipitor) 5 mg QHS GTB Last administered on 02/08/17 20: 48; Admin Dose 5 MG; Start 02/08/17 at 21:00 Bisacodyl (Dulcolax Supp) 10 mg DAILY PRN [place] CONSTIPATION; Start 02/08/17 at 02 :30 Cholestyramine Resin (Questran) 1 pkt BID PO Last administered on 02/08/17 20: 48; Admin Dose 1 PKT; Start 02/08/17 at 09:00 Docusate Sodium (Colace) 200 mg QHS PRN PO CONSTIPATION; Start 02/08/17 at 02: 30 Lansoprazole (Prevacid) 30 mg BID GTB Last administered on 02/08/17 20:48; Admin Dose 30 MG; Start 02/08/17 at 09:00 Loratadine (Claritin) 10 mg DAILY GTB Last administered on 02/08/17 10:11; Admin Dose 10 MG; Start 02/08/17 at 09:00 Al Hydrox/Mg Hydrox/Simethicone (Mag-Al Plus) 30 ml DAILY GTB Last administered on 02/08/17 10:16; Admin Dose 30 ML; Start 02/08/17 at 09:00 Metoprolol Tartrate (Lopressor) 25 mg BID GTB Last administered on 02/08/17 20 :47; Admin Dose 25 MG; Start 02/08/17 at 09:00 Mineral Oil (Fleet Mineral Oil Enema) 133 ml DAILY PRN [place] RESP THERAPY; Start 02/08/17 at 02:30 Multivitamins Therapeutic (Theragran) 1 tab DAILY GTB Last administered on 02/08 10:11; Admin Dose 1 TAB; Start 02/08/17 at 09:00 Olanzapine (Zyprexa) 5 mg TID GTB Last administered on 02/08/17 23:29; Admin Dose 5 MG; Start 02/08/17 at 09:00 Eye Lubricant (Artificial Tears Oph) 1 drop TID BOTH EYES Last administered on 02/08/17 20:46; Admin Dose 1 DROP; Start 02/08/17 at 09:00 Nystatin 1 applic 1 applic DAILY PRN TOP NEEDED; Start 02/08/17 at 02:30 Meropenem/Sodium Chloride (Merrem 1 Gm/50 ml (Pmx)) 50 ml @ 100 mls/hr Q8 IVPB Last administered on 02/08/17 23:30; Admin Dose 100 MLS/HR; Start 02/08/17 at 06:00 Acetaminophen/ Hydrocodone Bitart ([place] (5/325)) 2 tab Q6 PRN PO SEVERE PAIN LEVEL 7-10 Last administered on 02/08/17 22:13; Admin Dose 2 TAB; Start at 03:51 JEANNINE MATAMOROS NP Feb 08, 2017 23:59
[2017-02-09] VITALS (36 sets, daily range): BP systolic 90–137; BP diastolic 67–117; PULSE 81–110; RESP 17–32
--- NOTE | 2017-02-09 03:02 | PN ---
DATE: 02/08/2017 SUBJECTIVE DATA: Patient was discharged yesterday from [place] to [facility] facility. Readmitted today with leukocytosis. Vital signs on admission were stable. Patient also came with [id number] respiratory failure and placed on vent. OBJECTIVE DATA: Temperature 98, pulse 98, respirations 24, blood pressure 121/79, saturation 100 percent on vent. LABORATORY AND DIAGNOSTIC DATA: WBC on admission yesterday 16.4, H and H 8.5 and 28.2, platelets 249, neutrophils 87.6. BUN 12, creatinine 0.51. Patient had CT of the abdomen and pelvis that revealed bibasilar atelectatic and consolidative changes with small pleural effusions. Extensive emphysematous changes, mild lower abdominal free fluid, bilateral small inguinal hernias, subcutaneous stranding suggestive of anasarca, vascular calcification and mild multilevel compression deformities of the lumbar spine unchanged. No bowel obstruction. No free air. No diverticulitis. CT of the chest revealed no evidence of pulmonary embolism or aortic dissection. INDWELLINGS: The patient has tracheostomy and peripheral IV. ANTIMICROBIALS: He is on meropenem. ALLERGIES: VANCOMYCIN. PHYSICAL EXAMINATION: GENERAL: This is a well-developed, obese, middle-aged white man, who is awake, in no distress. HEENT: Head atraumatic, normocephalic. Sclerae anicteric. Buccal mucosa dry. NECK: Supple. Tracheostomy present. LUNGS: Chest rise symmetrical. Breath sounds diminished at the bases. HEART: S1, S2. ABDOMEN: Soft, bowel sounds present. EXTREMITIES: Without cyanosis. ASSESSMENT: 1. [id number] respiratory failure, possibly aspiration event. 2. Status post intra-abdominal abscess drainage with drainage catheter being dislodged several days ago and patient had been stable, completed antibiotics. 3. Chronic respiratory failure. 4. Hypertension. 5. Bipolar disorder. 6. Chronic obstructive pulmonary disease. 7. History of oxacillin-sensitive Staphylococcus aureus bacteremia. PLAN: The patient remains stable. We are going to continue him on current antibiotics. We will await for cultures. Consider GI evaluation for the presence of intra-abdominal fluid. Continue vent management as per Pulmonary. Follow chest x-ray. Dictated By: Candida Dial NP /brando/jr /Document#: [id number]
[2017-02-09] MEDS: PANTOPRAZOLE (EC) 40 MG TAB PO SCH (05:05)
[2017-02-09] MEDS: MEROPENEM 1 GM/50ML(PMX) 50 ML IVPB SCH ×3 (05:05→22:00)
[2017-02-09 06:56] LABS: BASOPHILS % 0.2 % (0.0-2.0); EOSINOPHILS # 0.4 10^3/ul (0.0-0.5); EOSINOPHILS % 3.5 % (0.0-7.0); HEMATOCRIT 26.5 % (42.0-52.0); LYMPHOCYTES # 1.2 10^3/ul (0.8-2.9); LYMPHOCYTES % 9.8 % (15.0-51.0); MEAN CORPUSCULAR HEMOGLOBIN 29.4 pg (29.0-33.0); MEAN CORPUSCULAR HGB CONC 30.2 g/dl (32.0-37.0); MEAN CORPUSCULAR VOLUME 97.4 fl (82.0-101.0); MEAN PLATELET VOLUME 10.1 fl (7.4-10.4); MONOCYTE # 1.3 10^3/ul (0.3-0.9); MONOCYTES % 10.5 % (0.0-11.0); NEUTROPHILS % 75.5 % (39.0-77.0); PLATELET COUNT 249 10^3/UL (140-415); RED BLOOD COUNT 2.72 10^6/ul (4.70-6.10); RED CELL DISTRIBUTION WIDTH 18.5 % (11.5-14.5); WHITE BLOOD COUNT 12.4 10^3/ul (4.8-10.8)
[2017-02-09 07:07] LABS: ALBUMIN 2.8 g/dl (3.3-4.9); ALBUMIN/GLOBULIN RATIO 0.73; CALCIUM 8.7 mg/dl (8.4-10.2); CREATININE 0.48 mg/dl (0.61-1.24); PHOSPHORUS 3.8 mg/dl (2.5-4.9); POTASSIUM 4.3 mmol/L (3.5-5.1); TOTAL PROTEIN 6.6 g/dl (6.1-8.1)
[2017-02-09] MEDS: METOPROLOL 25 MG TAB GTB SCH ×2 (08:49→20:00)
[2017-02-09] MEDS: AL HYDROX/MG HYDROX/SIMETH 30 ML CUP GTB SCH (08:49)
[2017-02-09] MEDS: ASCORBIC ACID 500 MG TAB GTB SCH (08:49)
[2017-02-09] MEDS: MULTIVITAMINS THERAPEUTIC TAB GTB SCH (08:49)
[2017-02-09] MEDS: ASPIRIN (EC) 81 MG TAB PO SCH (08:49)
[2017-02-09] MEDS: LANSOPRAZOLE 30 MG CAP GTB SCH ×2 (08:49→20:01)
[2017-02-09] MEDS: OLANZAPINE 5 MG TAB GTB SCH ×3 (08:50→20:00)
[2017-02-09] MEDS: ARTIFICIAL TEARS 15 ML OPH BOTH EYES SCH ×3 (08:50→20:01)
[2017-02-09] MEDS: CHOLESTYRAMINE 4 GM PACKET PO SCH ×2 (08:50→20:01)
[2017-02-09] MEDS: ENOXAPARIN 40 MG/0.4 ML SYG SC SCH (08:51)
[2017-02-09] MEDS: LORATADINE 10 MG TAB GTB SCH (08:58)
[2017-02-09] MEDS: HYDROCODONE/APAP (5/325) TAB PO PRN ×2 (08:58→20:01)
--- NOTE | 2017-02-09 10:12 | RADRPT ---
PROCEDURE: Chest Radiograph. CLINICAL INDICATION: Pneumonia TECHNIQUE: Single frontal chest radiograph. COMPARISON: Chest radiograph 02/07/1970 FINDINGS: A tracheostomy tube is in place. Heart size is within normal limits. Atherosclerotic calcification s are present. The lungs are hyperinflated. There is extensive interstitial opacities which are st able compared to prior study and likely represent chronic lung changes . Small pleural effusions ar e present. The bones are intact. IMPRESSION: 1. Pulmonary hyperinflation and chronic lung changes, correlate with COPD. 2. Small bilateral pleural effusions. 3. Atherosclerotic vascular disease. RPTAT: KK .Shilo Huynh MD, MD Date Time Electronically viewed and signed by .Shilo Huynh MD, on 02/09/2017 10:11 .B/
[2017-02-09] MEDS ORDERED: ALTEPLASE (CATHFLO) 2 MG INJ CATHETER PRN (12:30)
--- NOTE | 2017-02-09 13:32 | PN ---
DATE: 02/09/2017 SUBJECTIVE DATA: The patient is stable overnight. No acute events noted. No hemoptysis, hematemesis, hematochezia. OBJECTIVE DATA: VITAL SIGNS: Blood pressure is 127/90, respirations 24, pulse 110, temperature 98.7. HEENT: Head is normocephalic. NECK: Supple. HEART: Regular rate. LUNGS: Show diminished breath sounds at the base. ABDOMEN: Soft, nontender to palpation. No rebound or guarding. EXTREMITIES: Negative for clubbing, cyanosis, or edema. DERMATOLOGIC: Clean. No rashes. MUSCULOSKELETAL: No joint effusion. NEUROLOGIC: No change in exam. MEDICATIONS: Reviewed. LABORATORY AND DIAGNOSTIC DATA: Shows a white count of 12.4, hemoglobin 8.0, hematocrit 26.5, platelet count 249,000. Sodium 140, potassium 4.3, chloride 93, BUN 9, creatinine 0.58. The patient's cultures have been reviewed and negative to date. The patient's CT angio showed no evidence of PE. ASSESSMENT AND PLAN: 1. Ventilatory-dependent respiratory failure. Patient's vent settings, ABGs reviewed. Continue to monitor. Follow up with pulmonary. 2. Sepsis secondary to abdominal wall cellulitis, abscess and healthcare-associated pneumonia. The patient is status post CT- guided left flank abdominal fluid collection drainage on December [address] scan January 05 showing lower amount of fluid collection. The patient's drains have been removed. The patient remains on antibiotic therapy. Will follow up with infectious disease. 3. Dysphagia. Nutrition: The patient is currently on p.o. being weaned off total parenteral nutrition. 4. Tachycardia. The etiology is multifactorial. Continue to monitor. Follow up with cardiology. 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 6. Anemia. The patient status post blood transfusion. Continue monitor hemoglobin and hematocrit levels. 7. Hypertension. Continue current blood pressure regimen. 8. Chronic kidney disease. Continue medical management. 9. Leukocytosis, likely from sepsis, reactive. Continue to monitor. 10. Gastrointestinal and deep venous thrombosis prophylaxis. Continue Lovenox and proton pump inhibitor. Dictated By: Bora Pereira DO /brando/fletcher /Document#: [id number]
--- NOTE | 2017-02-09 15:56 | PN ---
DATE: 02/09/2017 SUBJECTIVE: The patient is lying comfortably in bed. He is on vent support, afebrile and in no distress. Temperature 98.3, pulse 108, respirations 20, blood pressure 131/85, saturation 100 on 40 FiO2. LABORATORY AND DIAGNOSTIC DATA: WBC 12.4, H and H 8 and 26.5, platelets 249, neutrophils 75.5, no bands. Sodium 140, potassium 4.3, BUN 9, creatinine 0.48. Microbiology, blood cultures remain negative. Chest x-ray this morning revealed pulmonary hyperinflation and chronic lung changes. Indwelling trach, Estrella, PICC line, present on admission. Antimicrobials, meropenem. ALLERGIES: VANCOMYCIN. PHYSICAL EXAMINATION: GENERAL: This is an obese, chronically ill-appearing, middle- aged white man, who is in no distress. HEENT: Head atraumatic, normocephalic. Sclerae anicteric. Buccal mucosa dry. NECK: Supple. Tracheostomy present. CHEST: Rise symmetrical. Breath sounds diminished at the bases. HEART: S1, S2. ABDOMEN: Soft, bowel sounds present. EXTREMITIES: Without cyanosis, bilateral trace edema. ASSESSMENT: 1. Recurrent abdominal pain with leukocytosis, status post recent discharge [facility] to [facility], etiology unclear, CT of the abdomen on this admission revealed mild lower abdominal free fluid. 2. History of G-tube malfunction and intra-abdominal abscess drainage status post catheter was dislodged last week, the patient completed antibiotics at that time. 3. Chronic respiratory failure. 4. Chronic obstructive pulmonary disease. 5. Dysphagia. 6. History of bipolar disorder. 7. History of urinary tract infection and oxacillin sensitive Staph aureus bacteremia. The patient remains stable. White blood cell count tracing down. We will order urine culture if it has not been done. Continue him on current antibiotics. Follow Pulmonary recommendations. Follow Surgical recommendations. Dictated By: Candida Dial NP /brando/maynor /Document#: [id number]
[2017-02-09] MEDS: SOD CHLORIDE 0.9% 1,000 ML IV SCH (18:26)
[2017-02-09] MEDS: ATORVASTATIN 10 MG TAB GTB SCH (20:00)
[2017-02-10] VITALS (35 sets, daily range): BP systolic 99–131; BP diastolic 55–92; PULSE 80–117; RESP 15–26
[2017-02-10] MEDS: HYDROCODONE/APAP (5/325) TAB PO PRN ×4 (01:18→23:29)
[2017-02-10] MEDS: PANTOPRAZOLE (EC) 40 MG TAB PO SCH (04:59)
[2017-02-10] MEDS: MEROPENEM 1 GM/50ML(PMX) 50 ML IVPB SCH ×3 (04:59→22:30)
[2017-02-10 05:40] LABS: BASOPHILS % 0.1 % (0.0-2.0); EOSINOPHILS # 0.5 10^3/ul (0.0-0.5); EOSINOPHILS % 4.2 % (0.0-7.0); HEMOGLOBIN 7.9 g/dl (14.0-18.0); LYMPHOCYTES % 8.4 % (15.0-51.0); MEAN CORPUSCULAR HEMOGLOBIN 28.8 pg (29.0-33.0); MEAN CORPUSCULAR HGB CONC 29.3 g/dl (32.0-37.0); MEAN CORPUSCULAR VOLUME 98.5 fl (82.0-101.0); MEAN PLATELET VOLUME 10.1 fl (7.4-10.4); MONOCYTE # 1.1 10^3/ul (0.3-0.9); MONOCYTES % 9.4 % (0.0-11.0); NEUTROPHILS % 77.5 % (39.0-77.0); PLATELET COUNT 229 10^3/UL (140-415); RED BLOOD COUNT 2.74 10^6/ul (4.70-6.10); RED CELL DISTRIBUTION WIDTH 18.4 % (11.5-14.5); WHITE BLOOD COUNT 11.9 10^3/ul (4.8-10.8)
[2017-02-10 05:58] LABS: CALCIUM 8.6 mg/dl (8.4-10.2); CREATININE 0.52 mg/dl (0.61-1.24); PHOSPHORUS 3.4 mg/dl (2.5-4.9); POTASSIUM 4.1 mmol/L (3.5-5.1)
--- NOTE | 2017-02-10 08:04 | PN ---
DATE: 02/10/2017 SUBJECTIVE DATA: Patient is stable. No events overnight. No fevers, chills, nausea, vomiting. The patient is tolerating p.o. well. No other events noted. OBJECTIVE DATA: VITAL SIGNS: Blood pressure 101/73, respirations 20, pulse 85, temperature 97.4. HEENT: Head is normocephalic. NECK: Supple. HEART: Regular rate. LUNGS: Show diminished breath sounds at the base. ABDOMEN: Soft, nontender to palpation. No rebound or guarding. EXTREMITIES: Negative for clubbing, cyanosis. No edema. DERMATOLOGIC: Clean. No rashes. MUSCULOSKELETAL: No joint effusion. NEUROLOGIC: No change in exam. MEDICATIONS: Reviewed. LABORATORY AND DIAGNOSTIC DATA: White count 11.9, hemoglobin 7.9, crit 27.0, platelet count 329. Sodium 139, potassium 4.1, BUN 7, creatinine 0.52. ASSESSMENT AND PLAN: 1. Ventilatory-dependent respiratory failure. Vent settings reviewed. ABGs reviewed. Continue to monitor. Follow up with Pulmonary. 2. Sepsis secondary to healthcare-associated pneumonia. The patient is currently on antibiotic therapy. Will continue. 3. Dysphagia. The patient is tolerating p.o., will continue. 4. Tachycardia, multifactorial. Continue to monitor. Follow up with Cardiology. 5. Anemia. Continue to monitor H and H levels. 6. Hypertension. Continue current blood pressure regimen. 7. Coronary artery disease. Continue current medical management. 8. Leukocytosis, likely from sepsis. Continue current treatment plan. 9. Status post abdominal abscess, status post drainage. 10. Gastrointestinal and deep venous thrombosis prophylaxis. Continue proton pump inhibitor and Lovenox. Dictated By: oBra Pereira DO /brando/jr /Document#: [id number]
[2017-02-10] MEDS: LANSOPRAZOLE 30 MG CAP GTB SCH ×2 (08:53→21:04)
[2017-02-10] MEDS: ASPIRIN (EC) 81 MG TAB PO SCH (08:53)
[2017-02-10] MEDS: OLANZAPINE 5 MG TAB GTB SCH ×3 (08:53→21:04)
[2017-02-10] MEDS: CHOLESTYRAMINE 4 GM PACKET PO SCH ×2 (08:53→22:31)
[2017-02-10] MEDS: ASCORBIC ACID 500 MG TAB GTB SCH (08:53)
[2017-02-10] MEDS: MULTIVITAMINS THERAPEUTIC TAB GTB SCH (08:53)
[2017-02-10] MEDS: METOPROLOL 25 MG TAB GTB SCH ×2 (08:55→21:04)
[2017-02-10] MEDS: ARTIFICIAL TEARS 15 ML OPH BOTH EYES SCH ×3 (08:55→21:00)
--- NOTE | 2017-02-10 08:58 | PN ---
Date/Time of Note Date/Time of Note DATE: 02/10/17 TIME: 08:49 Assessment/Plan Lines/Catheters IV Catheter Type (from [facility]): PICC Line Estrella in Place (from [facility]): No Assessment/Plan Chief Complaint/Hosp Course 1. VDRF with pna: comfortable on vent -pulmonary toilet -abx -continue vent support 2. PNA: chronic vent, ? / #5; tolerating PO diet -abx -as above 3. Abdominal fluid collection: s/p drainage and drain placement (removed by patient) no abdominal discomfort -cont abx per sensitivity 4. Sepsis with leukocytosis: / #2,3, no fevers, tachycardia; leukocytosis improving -supportive -as above 5. Dysphagia: patient states was getting nutrition orally in rehab; on oral nutrition -careful monitoring and feeding assist 6. Anemia.:status post blood transfusion -monitor and transfuse prn 7. Hypertension -medical optimization -weight loss encouraged 8. Chronic kidney disease -medical management -avoid nephrotoxic meds -renally dose meds Patient seen and examined in collaboration with Dr Boubacar Davis. Thank you. Problems: Subjective 24 Hr Interval Summary Feels well. Tolerating PO meals. Comfortable on vent. Anxious. No c/o pain, sob , fevers, chills, n/v/d/dysuria, cp, palpitations. Abdomen without pain/ discomfort. Exam/Review of Systems Vital Signs Vitals Vital Signs Date Time Temp Pulse Resp B/P Pulse Ox O2 Delivery O2 Flow Rate FiO2 02/10/17 06:00 85 24 101/73 100 02/10/17 05:10 40 02/10/17 04:00 97.4 02/09/17 19:00 Mechanical Ventilator 02/08/17 17:15 10.0 Intake and Output 02/09/17 02/09/17 02/10/17 15:00 23:00 07:00 Intake Total 570 ml 450 ml 480 ml Output Total 1000 ml 730 ml 700 ml Balance -430 ml -280 ml -220 ml Exam Free Text/Dictation Constitutional: alert, well developed Psych: nl mood/affect, min anxious Head: atraumatic, normocephalic Eyes: nl lids, nl sclera ENMT: mucosa pink and moist, nl nasal mucosa & septum Neck: other (trach) Respiratory: No labored breathing Cardiovascular: edema (min BLE), regular rate and rhythm Gastrointestinal: distended (min), soft, surgical scars, No tender Genitourinary - Male: No CVA tenderness Musculoskeletal: muscle weakness Extremities: pitting pedal edema (+2 ble) Neurological: nl mental status, nl strength Skin: No rash or lesions Results Result Diagram: 02/10/17 0345 02/10/17 0345 JEANNINE MATAMOROS NP Feb 10, 2017 08:58
[2017-02-10] MEDS: ENOXAPARIN 40 MG/0.4 ML SYG SC SCH (09:00)
[2017-02-10] MEDS: AL HYDROX/MG HYDROX/SIMETH 30 ML CUP GTB SCH (09:00)
[2017-02-10] MEDS: LORATADINE 10 MG TAB GTB SCH (09:09)
--- NOTE | 2017-02-10 11:44 | CONS ---
DATE OF ADMISSION: 02/07/2017 DATE OF CONSULTATION: 02/10/2017 HISTORY OF PRESENT ILLNESS: This is a 56-year-old gentleman, with history of chronic respiratory failure on mechanical ventilation, admitted with increasing respiratory distress and abdominal pain. On admission, CT of the abdomen was performed and found to have bibasilar atelectasis, extensive emphysematous changes, small inguinal hernia, multilevel compression deformities of the abdomen. CT angiogram was also performed, demonstrated no evidence of PE. Since admission, he has remained relatively stable, with resolving leukocytosis, mild anemia, likely dilutional with underlying chronic disease. PAST MEDICAL HISTORY: 1. Vent-dependent respiratory failure. 2. Psychiatric disorder. 3. Severe COPD. 4. History of abdominal abscesses. 5. Dysphagia. MEDICATION: Per chart. ALLERGIES: VANCOMYCIN. SOCIAL HISTORY: History of tobacco use. No alcohol or history of drug use. FAMILY HISTORY: Noncontributory. REVIEW OF SYSTEMS: Twelve point review of systems currently negative other than that mentioned above. PHYSICAL EXAMINATION: GENERAL APPEARANCE: On examination, anxious gentleman, well nourished, well developed. VITAL SIGNS: Temperature 98, pulse is 100, blood pressure 101/73, O2 sat 96 percent, FiO2 of 40 percent. NECK: Trach site clean, intact. CARDIAC: S1, S2. No added sounds or murmurs. CHEST: Diminished air entry bilaterally. ABDOMEN: Soft, nontender. No guarding or rebound. EXTREMITIES: No cyanosis, clubbing or edema. NEUROLOGIC: Generalized weakness. LABORATORY: White count 11.9, hemoglobin 7.9, platelets of 229. BUN 7, creatinine 0.52. ABG: pH 7.39, pCO2 of 66, PO2 of 396. INR 1.45. Initial blood cultures are negative. Chest x-ray was reviewed, showed mild pulmonary edema, chronic lung changes consistent with COPD. Otherwise no focal infiltrates. IMPRESSION: 1. Leukocytosis unclear etiology, possible tracheobronchitis. Appears to be resolving. 2. Anemia likely of chronic disease and dilutional. 3. Vent-dependent respiratory failure. 4. History of severe chronic obstructive pulmonary disease. 5. Psychiatric disorder. PLAN: 1. Continue mechanical ventilation. 2. Continue antibiotic coverage with meropenem, consider de- escalation. 3. Continue oral intake and monitor for aspiration. 4. DVT and GI prophylaxis. Dictated By: Rajinder Russo MD /brando/jr /Document#: [id number]
--- NOTE | 2017-02-10 12:00 | CONS ---
DATE OF ADMISSION: 02/07/2017 DATE OF CONSULTATION: 02/10/2017 REASON FOR CONSULTATION: Tachycardia. CHIEF COMPLAINT: Respiratory failure, sepsis, hypoxemia. HISTORY OF PRESENT ILLNESS: Thank you for asking me to . History was obtained on review of the chart, discussion with the staff and physician, patient also known from previous admission to the hospital. Old chart as well was extensively reviewed. This is an unfortunate 56-year-old gentleman who has a complicated medical history, status post tracheostomy on the vent, who was brought in from a senior care back to the emergency room because of hypoxemia, desaturations to 88 percent, . Patient is not able to much history due to his being status post trach and nonverbal. He has been admitted with sepsis and possible pneumonia. He has multiple complicated medical history. Patient known to be severely tachycardic, running around 120s. Patient also has a history of paroxysmal atrial fibrillation and previously was on amiodarone, but has remained in sinus rhythm. PAST MEDICAL HISTORY: History of hypoxemic respiratory failure, status post tracheostomy, history of COPD, paroxysmal atrial fibrillation, has remained in sinus lately, history of dysphagia, status post PEG placement, which has had cellulitis and abscess, status post drainage, history of psychosis and bipolar disorder, history of anemia, hypertension. SOCIAL HISTORY: Patient quit smoking in the past. Apparently has had drug use in the past as well. FAMILY HISTORY: No reported early coronary artery disease. SURGICAL HISTORY: Status post trach and PEG, as well as abscess drainage of the abdominal wall. ALLERGIES: NO REPORTED ALLERGY. MEDICATION: In medical reconciliation, personally reviewed. REVIEW OF SYSTEMS: As above mentioned. PHYSICAL EXAMINATION: VITAL SIGNS: Temperature 97.4, heart rate 85, blood pressure 101/73, respiratory 24, satting 100 percent. HEENT: Head normocephalic, atraumatic. Obese gentleman. Eyes: Pupils are equal. NECK: Status post tracheostomy, on the vent now. CARDIAC: Tachycardic. . LUNGS: Entirely with no wheezing, no rhonchi. ABDOMEN: Status post previous drainage site. No rebound or guarding. EXTREMITIES: Positive edema in extremities. Diffuse lower extremity edema. NEUROLOGIC: He is awake and alert. PSYCHIATRIC: Appears calm. LABORATORY: Sodium of 139, potassium 4.1, BUN of 7, creatinine of 0.52, glucose 93. Mag is 2.0. Albumin is 2.8. Troponin on admission was less than 0.012. WBC 11.8, hemoglobin 7.9 today, platelets 229. ABG on admission showed pH of 7.39, pCO2 of 66, PO2 of 396, bicarb of 39, this is on the vent 100 percent. Chest x-ray on admission showed increased patchy opacities in both lung bases, possible atelectasis. A CT pulmonary angiogram was done on the , which showed no evidence of pulmonary embolus, with aortic dissection. Bilateral small pleural effusion, extensive emphysematous changes in bilateral upper lobe and bullous disease, mild compression deformities. Chest x-ray on the shows pulmonary hyperinflation, chronic lung changes, as well as small bilateral pleural effusion. Review of the old chart showed echocardiogram in September had shown ejection fraction of 55 percent. EKG, personally reviewed, showed sinus tachycardia, low voltage. IMPRESSION AND PLAN: 1. Tachycardia, sinus, multifactorial. 2. Hypoxemic hypercapnic respiratory failure, status post tracheostomy, vent dependent. 3. Sepsis and possible pneumonia. 4. Dysphagia. Currently tolerating p.o. medication apparently. 5. Anemia. This appeared to be severe. 6. Hypertension, under good control. 7. Paroxysmal atrial fibrillation. Currently remains in sinus rhythm. 8. Severe chronic obstructive pulmonary disease and emphysematous changes on the CT. 9. Leukocytosis from sepsis. 10. History of abdominal abscess. RECOMMENDATIONS: We will obtain echocardiogram. Nutritional support will be continued. Deep venous thrombosis prophylaxis to be continued. Patient is on low-dose aspirin, not on anticoagulant due to severe anemia. Beta toby as tolerated will be continued. Respiratory treatment will continue with Pulmonary. Continue to monitor on telemetry closely. as needed. Dictated By: Ulises Murphy MD /brando/jr /Document#: [id number]
--- NOTE | 2017-02-10 13:58 | PN ---
DATE: 02/10/2017 SUBJECTIVE DATA: No events overnight. No fevers. The patient is awake, looks comfortable. Denies pain. LABORATORY AND DIAGNOSTIC DATA: WBC 11.9, H and H 7.9 and 27, platelets 229; neutrophils 77.5. BUN 7, creatinine 0.52. Blood cultures remain negative. Nares swab came back negative. INDWELLING: Trach, PICC line. ANTIMICROBIALS: Patient remains on Merrem. PHYSICAL EXAMINATION: VITAL SIGNS: Temperature 99.4, pulse 105, respirations 24, blood pressure 123/80, saturation 95 on 40 FiO2. GENERAL: This is a well-developed, middle-aged, obese white man, who is awake, in no distress. HEENT: Head atraumatic, normocephalic. Sclerae anicteric. Buccal mucosa dry. NECK: Supple. Tracheostomy present. CHEST: Rise symmetrical. Breath sounds diminished at the bases. HEART: S1, S2. ABDOMEN: Obese, soft, bowel sounds present. EXTREMITIES: Without cyanosis, bilateral trace edema. ASSESSMENT: 1. Resolving sepsis. 2. Possible aspiration event with [id number]-zshaozf respiratory failure. 3. Dysphagia. 4. Chronic obstructive pulmonary disease. 5. Bipolar disorder. 6. History of gastric tube malfunction status post discontinuation. 7. History of abdominal abscess status post drainage catheter placed, now off. PLAN: Patient remains stable. Cultures have been negative. He is on meropenem, day number 4, white blood cell count tracing down. We are going to continue him on current regimen for 3 more days. Pending discharge back to SNF. Dictated By: Candida Dial NP /brando/fletcher /Document#: [id number]
[2017-02-10] MEDS ORDERED: PENDING SANTYL ORDER FOR WOUND CARE XX PRN (18:00)
[2017-02-10] MEDS: ATORVASTATIN 10 MG TAB GTB SCH (21:04)
[2017-02-11] VITALS (32 sets, daily range): BP systolic 90–132; BP diastolic 64–95; PULSE 81–111; RESP 18–26
--- NOTE | 2017-02-11 05:10 | DS ---
DATE OF ADMISSION: 02/07/2017 DATE OF DISCHARGE: HOSPITAL COURSE: This is a 56-year-old male with a past medical history of ventilator-dependent respiratory failure, history of COPD, dysphagia, history of abdominal abscess, status post drainage, history of proximal AFib, hypertension, anemia, GERD, bipolar disorder, who presents to [facility] from his subacute facility due to shortness of breath. The patient upon arrival in the emergency room was noted to have healthcare associated pneumonia. He was subsequently admitted to telemetry status in ICU. The patient in terms of pneumonia, was placed on IV antibiotics and was seen by Infectious Disease specialist, Dr. Brown who recommends to continue IV antibiotics for another course of 4 days. The patient also seen by farmworker cranberry, Dr. Murphy, and has been noted to be stable during the hospital course. The patient was seen by plugging machine operator, Dr. Russo. Currently at this time the patient's white count has improved. The patient at this point will be discharged back to longterm facility. Where he will continue IV antibiotics and complete a week's total. FINAL DIAGNOSES: 1. Sepsis secondary to healthcare associated pneumonia. 2. Ventilator-dependent respiratory failure. 3. Dysphagia. The patient is tolerating p.o. 4. Tachycardia, multifactorial. Continue medical management. 5. Anemia. Monitor hemoglobin and hematocrit levels. 6. Hypertension. Continue current blood pressure regimen. 7. Coronary artery disease. Continue medical management. 8. Leukocytosis from sepsis, improving. 9. Status post abdominal abscess. 10. Gastrointestinal (GI) and deep venous thrombosis (DVT) prophylaxis. DISCHARGE MEDICATIONS: See reconciliation list. DISCHARGE CONDITION: At the time of discharge, the patient is stable in no acute distress. Dictated By: Bora Pereira DO /brando/bradley /Document#: [id number]
[2017-02-11] MEDS: PANTOPRAZOLE (EC) 40 MG TAB PO SCH (05:48)
[2017-02-11] MEDS: MEROPENEM 1 GM/50ML(PMX) 50 ML IVPB SCH ×3 (05:49→22:00)
[2017-02-11 06:53] LABS: BASOPHILS % 0.2 % (0.0-2.0); EOSINOPHILS # 0.5 10^3/ul (0.0-0.5); EOSINOPHILS % 4.5 % (0.0-7.0); HEMATOCRIT 26.1 % (42.0-52.0); HEMOGLOBIN 7.9 g/dl (14.0-18.0); LYMPHOCYTES # 1.2 10^3/ul (0.8-2.9); LYMPHOCYTES % 11.4 % (15.0-51.0); MEAN CORPUSCULAR HEMOGLOBIN 29.9 pg (29.0-33.0); MEAN CORPUSCULAR HGB CONC 30.3 g/dl (32.0-37.0); MEAN CORPUSCULAR VOLUME 98.9 fl (82.0-101.0); MEAN PLATELET VOLUME 10.2 fl (7.4-10.4); MONOCYTE # 1.1 10^3/ul (0.3-0.9); MONOCYTES % 10.5 % (0.0-11.0); NEUTROPHILS % 73.1 % (39.0-77.0); PLATELET COUNT 235 10^3/UL (140-415); RED BLOOD COUNT 2.64 10^6/ul (4.70-6.10); WHITE BLOOD COUNT 10.3 10^3/ul (4.8-10.8)
[2017-02-11 07:37] LABS: CALCIUM 8.9 mg/dl (8.4-10.2); CREATININE 0.45 mg/dl (0.61-1.24); PHOSPHORUS 3.4 mg/dl (2.5-4.9); POTASSIUM 4.1 mmol/L (3.5-5.1)
--- NOTE | 2017-02-11 07:48 | PN ---
DATE: 02/11/2017 SUBJECTIVE DATA: The patient was transferred to telemetry, but then transferred back to the ICU due to incapability of handling pressure control. Overnight, patient was stable without any acute events. OBJECTIVE DATA: VITAL SIGNS: Blood pressure is 98/65, respirations 24, pulse 87, temperature 97.1. HEENT: Head is normocephalic. NECK: Supple. HEART: Regular rate. LUNGS: Show diminished breath sounds at the base. ABDOMEN: Soft, nontender to palpation. No rebound or guarding. EXTREMITIES: Negative for clubbing, cyanosis. No edema. DERMATOLOGIC: Clean. No rashes. MUSCULOSKELETAL: No joint effusion. NEUROLOGIC: No change in exam. MEDICATIONS: Reviewed. LABORATORY AND DIAGNOSTIC DATA: Showed sodium 139, potassium 4.1, chloride 97, BUN 7, creatinine 0.52. White count 10.3, hemoglobin 10.9, crit 26.1, platelet count is 235. ASSESSMENT AND PLAN: 1. Ventilatory-dependent respiratory failure. Vent settings reviewed. ABGs reviewed. Continue to monitor. Follow up with Pulmonary. 2. Sepsis secondary to healthcare-associated pneumonia. The patient is clinically improving. Continue current antibiotic regimen. 3. Dysphagia. Patient is tolerating oral intake. 4. Tachycardia, multifactorial. Continue medical management. 5. Anemia. Monitor H and H levels. 6. Hypertension. Continue current blood pressure regimen. 7. Coronary artery disease. Continue medical management. 8. Status post abdominal abscess. 9. Gastrointestinal and deep venous thrombosis prophylaxis. Continue proton pump inhibitor and Lovenox. 10. Leukocytosis, improving. Dictated By: Bora Pereira DO /brando/jr /Document#: [id number]
--- NOTE | 2017-02-11 09:10 | CONS ---
Date/Time of Note Date/Time of Note DATE: 02/11/17 TIME: 09:07 Assessment/Plan Assessment/Plan Additional Assessment/Plan Ventilator setting; patient is on pressure control mode of ventilation with AC of 24, PEEP of 5, 30% FiO2. Assessment and recommendations; 1. Patient admitted with shortness of breath with leukocytosis possibly some element of pneumonia, clinically and radiologically improved. 2. Chronic respiratory failure due to end-stage COPD. His severe hypercapnic respiratory failure. 3. History of depression and bipolar disorder. 4. Status post abdominal abscesses. 5. Negative CTA of the chest for pulmonary embolism. 6. History of hypertension. Continue current supportive care. Prognosis is poor on account of fairly young age and end-stage COPD. Consultation Date/Type/Reason Admit Date/Time Feb 07, 2017 at 22:40 Initial Consult Date 02/08/17 Type of Consultation: Pulmonary/critical care Referring Provider: DAMON BOSWELL DO 24 HR Interval Summary Free Text/Dictation Patient condition is stable. Remains completely awake alert. Has remained hemodynamically stable. Denies any abdominal pain, nausea vomiting. Denies any shortness of breath. General exam; middle-aged male, morbidly obese, on ventilator via tracheostomy, currently in no distress. Exam/Review of Systems Vital Signs Vitals Vital Signs Date Time Temp Pulse Resp B/P Pulse Ox O2 Delivery O2 Flow Rate FiO2 02/11/17 08:23 96 98 30 02/11/17 07:20 24 02/11/17 06:00 Mechanical Ventilator 02/11/17 04:00 97.1 02/08/17 17:15 10.0 Intake and Output 02/10/17 02/10/17 02/11/17 15:00 23:00 07:00 Intake Total 530 ml 530 ml Output Total 400 ml 600 ml 700 ml Balance 130 ml -70 ml -700 ml Exam HEENT exam; supple neck, JVD difficult to see because of short neck and bowman. Tracheostomy in place. Insertion site is clean. Patient has fair dentition. Pupils are small bilaterally. No neck masses. Chest exam; diminished breath sounds throughout. No added sound. S1-S2 audible , no murmurs. Regular rhythm. Abdomen exam; protuberant. Nontender. Multiple well-healed scars are present. No organomegaly felt. Bowel sounds audible. Extremity exam; no edema. Pulses are 2+ bilaterally. DEVICE TEST ENGINEER exam; no focal deficit. Results Result Diagram: 02/11/17 0515 02/11/17 0515 Results 24 hrs Laboratory Tests Test 02/11/17 05:15 02/11/17 08:13 White Blood Count 10.3 Red Blood Count 2.64 L Hemoglobin 7.9 L Hematocrit 26.1 L Mean Corpuscular Volume 98.9 Mean Corpuscular Hemoglobin 29.9 Mean Corpuscular Hemoglobin Concent 30.3 L Red Cell Distribution Width 18.0 H Platelet Count 235 Mean Platelet Volume 10.2 Neutrophils % 73.1 Lymphocytes % 11.4 L Monocytes % 10.5 Eosinophils % 4.5 Basophils % 0.2 Nucleated Red Blood Cells % 0.0 Neutrophils # (Manual) 7.5 Lymphocytes # 1.2 Monocytes # 1.1 H Eosinophils # 0.5 Basophils # 0.0 Nucleated Red Blood Cells # 0.0 Sodium Level 138 Potassium Level 4.1 Chloride Level 93 L Carbon Dioxide Level 42 *H Anion Gap 7 L Blood Urea Nitrogen 7 Creatinine 0.45 L Glucose Level 79 Calcium Level 8.9 Phosphorus Level 3.4 Magnesium Level 2.0 Bedside Glucose 78 Medications Medications Current Medications Ondansetron HCl (Zofran Inj) 4 mg Q6H PRN IV NAUSEA AND/OR VOMITING; Start at 02:30 Acetaminophen/ Hydrocodone Bitart ([place] (5/325)) 1 tab Q6H PRN PO MODERATE PAIN LEVEL 4-6 Last administered on 02/08/17 10:16; Admin Dose 1 TAB; Start at 02:30 Pantoprazole (Protonix Tab) 40 mg DAILY@06 PO Last administered on 02/11/17 05 :48; Admin Dose 40 MG; Start 02/08/17 at 06:00 Enoxaparin Sodium (Lovenox) 40 mg DAILY SC Last administered on 02/10/17 09:00 ; Admin Dose 40 MG; Start 02/08/17 at 09:00 Acetaminophen (Tylenol Tab) 1,000 mg Q6H PRN PO MODERATE PAIN LEVEL 4-6; Start 02/08/17 at 02:30 Acetaminophen (Tylenol Tab) 650 mg Q6H PRN GTB FEVER GREATER THAN 100.6; Start 02/08/17 at 02:30 Acetaminophen (Tylenol Tab) 650 mg Q6H PRN GTB MILD PAIN LEVEL 1-3; Start 02/08 at 02:30 Ascorbic Acid (Vitamin C) 500 mg DAILY GTB Last administered on 02/10/17 08:53 ; Admin Dose 500 MG; Start 02/08/17 at 09:00 Aspirin (Halfprin) 81 mg DAILY PO Last administered on 02/10/17 08:53; Admin Dose 81 MG; Start 02/08/17 at 09:00 Atorvastatin Calcium (Lipitor) 5 mg QHS GTB Last administered on 02/10/17 21: 04; Admin Dose 5 MG; Start 02/08/17 at 21:00 Bisacodyl (Dulcolax Supp) 10 mg DAILY PRN [place] CONSTIPATION; Start 02/08/17 at 02 :30 Cholestyramine Resin (Questran) 1 pkt BID PO Last administered on 02/10/17 22: 31; Admin Dose 1 PKT; Start 02/08/17 at 09:00 Docusate Sodium (Colace) 200 mg QHS PRN PO CONSTIPATION; Start 02/08/17 at 02: 30 Lansoprazole (Prevacid) 30 mg BID GTB Last administered on 02/10/17 21:04; Admin Dose 30 MG; Start 02/08/17 at 09:00 Loratadine (Claritin) 10 mg DAILY GTB Last administered on 02/10/17 09:09; Admin Dose 10 MG; Start 02/08/17 at 09:00 Al Hydrox/Mg Hydrox/Simethicone (Mag-Al Plus) 30 ml DAILY GTB Last administered on 02/09/17 08:49; Admin Dose 30 ML; Start 02/08/17 at 09:00 Metoprolol Tartrate (Lopressor) 25 mg BID GTB Last administered on 02/10/17 21 :04; Admin Dose 25 MG; Start 02/08/17 at 09:00 Mineral Oil (Fleet Mineral Oil Enema) 133 ml DAILY PRN [place] RESP THERAPY; Start 02/08/17 at 02:30 Multivitamins Therapeutic (Theragran) 1 tab DAILY GTB Last administered on 02/10 08:53; Admin Dose 1 TAB; Start 02/08/17 at 09:00 Olanzapine (Zyprexa) 5 mg TID GTB Last administered on 02/10/17 21:04; Admin Dose 5 MG; Start 02/08/17 at 09:00 Eye Lubricant (Artificial Tears Oph) 1 drop TID BOTH EYES Last administered on 02/10/17 13:00; Admin Dose 1 DROP; Start 02/08/17 at 09:00 Nystatin 1 applic 1 applic DAILY PRN TOP NEEDED; Start 02/08/17 at 02:30 Meropenem/Sodium Chloride (Merrem 1 Gm/50 ml (Pmx)) 50 ml @ 100 mls/hr Q8 IVPB Last administered on 02/11/17 05:49; Admin Dose 100 MLS/HR; Start 02/08/17 at 06:00 Acetaminophen/ Hydrocodone Bitart ([place] (5/325)) 2 tab Q6 PRN PO SEVERE PAIN LEVEL 7-10 Last administered on 02/10/17 23:29; Admin Dose 2 TAB; Start at 03:51 Miscellaneous Information (Pending [facility] Order For Wound Care) This patient galaviz... PRN PRN XX WOUND CARE; Start 02/10/17 at 18:00 SHARON LLAMAS Feb 11, 2017 09:10
[2017-02-11] MEDS: ARTIFICIAL TEARS 15 ML OPH BOTH EYES SCH ×3 (09:36→21:20)
[2017-02-11] MEDS: MULTIVITAMINS THERAPEUTIC TAB GTB SCH (09:36)
[2017-02-11] MEDS: LORATADINE 10 MG TAB GTB SCH (09:37)
[2017-02-11] MEDS: LANSOPRAZOLE 30 MG CAP GTB SCH ×2 (09:37→21:18)
[2017-02-11] MEDS: OLANZAPINE 5 MG TAB GTB SCH ×3 (09:38→21:19)
[2017-02-11] MEDS: ASCORBIC ACID 500 MG TAB GTB SCH (09:38)
[2017-02-11] MEDS: METOPROLOL 25 MG TAB GTB SCH ×2 (09:39→21:19)
[2017-02-11] MEDS: ENOXAPARIN 40 MG/0.4 ML SYG SC SCH (09:41)
[2017-02-11] MEDS: AL HYDROX/MG HYDROX/SIMETH 30 ML CUP GTB SCH (09:41)
[2017-02-11] MEDS: CHOLESTYRAMINE 4 GM PACKET PO SCH ×2 (09:42→21:19)
[2017-02-11] MEDS: ASPIRIN (EC) 81 MG TAB PO SCH (09:48)
[2017-02-11] MEDS: HYDROCODONE/APAP (5/325) TAB PO PRN ×2 (10:47→14:24)
[2017-02-11] MEDS: IPRATROPIUM (HFA) 12.9 GM INHALER INH SCH ×3 (12:55→20:51)
[2017-02-11] MEDS: ALBUTEROL 18 GM INHALER INH SCH ×3 (12:55→20:52)
--- NOTE | 2017-02-11 13:12 | RADRPT ---
Echocardiogram Report Patient Name: SEJAL JADE Gender: Male Date: 1960 Study Date: 10-Feb-2017 Pediatric Occupational Therapist: Luz Dent RDCS Location: [id number] Ref. Physician: BRENTON MURPHY Quality: Technically Difficult Study Procedures: Transthoracic echocardiogram with complete 2D, M-Mode, and doppler examination. Indications: resp failure. Tachycardia. 2D/M Mode Doppler Measurement Value Normal Ranges Measurement Value Normal Ranges LVIDd 2D 4.0 3.5 - 5.6 cm AV Peak Merlin 1.3 m/sec LVIDs 2D 2.1 2.1 - 4.1 cm AV Peak PG 6.6 mmHg LVPWd 2D 1.0 0.6 - 1.1 cm LVOT Peak Merlin 1.0 m/sec IVSd 2D 1.0 0.6 - 1.1 cm LVOT Peak PG 4.2 mmHg AoR Diam 2D 2.6 2.0 - 3.7 cm MV E Peak Merlin 0.5 m/sec EDV 2D 68.4 cm3 MV A Peak Merlin 0.6 m/sec ESV 2D 9.8 cm3 MV E/A 0.9 LA Dimen 2D 2.5 2.3 - 4.0 cm MV Decel Time 137 msec MV Decel [place] 4 MV E/A 0.9 TR Peak Merlin 3.5 m/sec TR Peak PG 48.6 mmHg RVSP 59.0 mmHg Findings Left Ventricle: Normal left ventricular systolic function. Normal left ventricular cavity size. Normal left ventricular wall thickness. Ejection fraction is visually estimated at 60 %. Right Ventricle: Normal right ventricular size. Normal right ventricular systolic function. Left Atrium: The left atrium is normal in size. Right Atrium: The right atrium is normal in size. Mitral Valve: Normal appearance and function of the mitral valve with trace physiologic regurgitation. Aortic Valve: No significant aortic stenosis or insufficiency. Aortic cusps appear mildly calcified. Tricuspid Valve: Normal appearance of the tricuspid valve. Estimated peak PA systolic pressure 59 mmHg. There is mild tricuspid regurgitation. Pulmonic Valve: Normal pulmonic valve appearance. Pericardium: Small pericardial effusion. Aorta: Normal aortic root. IVC: Normal size and normal respiratory collapse consistent with normal right atrial pressure. Conclusions 1.Normal left ventricular systolic function. Normal left ventricular cavity size. Normal left ventricular wall thickness. Ejection fraction is visually estimated at 60 %. 2.Normal appearance and function of the mitral valve with trace physiologic regurgitation. 3.No significant aortic stenosis or insufficiency. Aortic cusps appear mildly calcified. 4.Normal appearance of the tricuspid valve. Estimated peak PA systolic pressure 59 mmHg. There is mild tricuspid regurgitation. Electronically Signed By: Brenton Murphy 11-Feb-2017 13:11:09 -0700 Patient Name: SEJAL JADE Study Date: 10-Feb-2017 [id number]
--- NOTE | 2017-02-11 14:14 | CONS ---
Date/Time of Note Date/Time of Note DATE: 02/11/17 TIME: 14:08 Consult Date/Type/Reason Admit Date/Time Feb 07, 2017 at 22:40 Initial Consult Date 02/08/17 Type of Consultation: cardiology Ordering Provider: DAMON BOSWELL DO Subjective d/w staff and rhythm was reviewed. pt remains in NSR/ Sinus tachy. but no Afib he remains on vent. no reports of any chest pain or pressure or palpitations. OBJECTIVE: HEENT: Head normocephalic, atraumatic. Eyes: Pupils are equal. General Obese gentleman. S/P Trach on vent NECK: Status post tracheostomy, on the vent now. CARDIAC: Tachycardic. grade I systolic murmur LUNGS: aneriorly with no wheezing, no rhonchi. ABDOMEN: Status post previous drainage site. No rebound or guarding. EXTREMITIES: Positive edema in extremities. Diffuse lower extremity edema. NEUROLOGIC: He is awake and alert. PSYCHIATRIC: Appears calm. echo 02/10/17: personally reviewed; 1. Normal left ventricular systolic function. Normal left ventricular cavity size. Normal left ventricular wall thickness. Ejection fraction is visually estimated at 60 %. 2. Normal appearance and function of the mitral valve with trace physiologic regurgitation. 3. No significant aortic stenosis or insufficiency. Aortic cusps appear mildly calcified. 4. Normal appearance of the tricuspid valve. Estimated peak PA systolic pressure 59 mmHg. There is mild tricuspid regurgitation. Objective Vital Signs Date Time Temp Pulse Resp B/P Pulse Ox O2 Delivery O2 Flow Rate FiO2 02/11/17 13:00 101 24 92 40 02/11/17 12:00 97.6 122/79 Mechanical Ventilator 02/08/17 17:15 10.0 Intake and Output 02/10/17 02/10/17 02/11/17 15:00 23:00 07:00 Intake Total 530 ml 530 ml Output Total 400 ml 600 ml 700 ml Balance 130 ml -70 ml -700 ml Results/Medications Result Diagram: 02/11/17 0515 02/11/17 0515 Results 24 hrs Laboratory Tests Test 02/11/17 05:15 02/11/17 08:13 White Blood Count 10.3 Red Blood Count 2.64 L Hemoglobin 7.9 L Hematocrit 26.1 L Mean Corpuscular Volume 98.9 Mean Corpuscular Hemoglobin 29.9 Mean Corpuscular Hemoglobin Concent 30.3 L Red Cell Distribution Width 18.0 H Platelet Count 235 Mean Platelet Volume 10.2 Neutrophils % 73.1 Lymphocytes % 11.4 L Monocytes % 10.5 Eosinophils % 4.5 Basophils % 0.2 Nucleated Red Blood Cells % 0.0 Neutrophils # (Manual) 7.5 Lymphocytes # 1.2 Monocytes # 1.1 H Eosinophils # 0.5 Basophils # 0.0 Nucleated Red Blood Cells # 0.0 Sodium Level 138 Potassium Level 4.1 Chloride Level 93 L Carbon Dioxide Level 42 *H Anion Gap 7 L Blood Urea Nitrogen 7 Creatinine 0.45 L Glucose Level 79 Calcium Level 8.9 Phosphorus Level 3.4 Magnesium Level 2.0 Bedside Glucose 78 Medications Current Medications Ondansetron HCl (Zofran Inj) 4 mg Q6H PRN IV NAUSEA AND/OR VOMITING; Start at 02:30 Acetaminophen/ Hydrocodone Bitart ([place] (5/325)) 1 tab Q6H PRN PO MODERATE PAIN LEVEL 4-6 Last administered on 02/08/17 10:16; Admin Dose 1 TAB; Start at 02:30 Pantoprazole (Protonix Tab) 40 mg DAILY@06 PO Last administered on 02/11/17 05 :48; Admin Dose 40 MG; Start 02/08/17 at 06:00 Enoxaparin Sodium (Lovenox) 40 mg DAILY SC Last administered on 02/11/17 09:41 ; Admin Dose 40 MG; Start 02/08/17 at 09:00 Acetaminophen (Tylenol Tab) 1,000 mg Q6H PRN PO MODERATE PAIN LEVEL 4-6; Start 02/08/17 at 02:30 Acetaminophen (Tylenol Tab) 650 mg Q6H PRN GTB FEVER GREATER THAN 100.6; Start 02/08/17 at 02:30 Acetaminophen (Tylenol Tab) 650 mg Q6H PRN GTB MILD PAIN LEVEL 1-3; Start 02/08 at 02:30 Ascorbic Acid (Vitamin C) 500 mg DAILY GTB Last administered on 02/11/17 09:38 ; Admin Dose 500 MG; Start 02/08/17 at 09:00 Aspirin (Halfprin) 81 mg DAILY PO Last administered on 02/11/17 09:48; Admin Dose 81 MG; Start 02/08/17 at 09:00 Atorvastatin Calcium (Lipitor) 5 mg QHS GTB Last administered on 02/10/17 21: 04; Admin Dose 5 MG; Start 02/08/17 at 21:00 Bisacodyl (Dulcolax Supp) 10 mg DAILY PRN [place] CONSTIPATION; Start 02/08/17 at 02 :30 Cholestyramine Resin (Questran) 1 pkt BID PO Last administered on 02/11/17 09: 42; Admin Dose 1 PKT; Start 02/08/17 at 09:00 Docusate Sodium (Colace) 200 mg QHS PRN PO CONSTIPATION; Start 02/08/17 at 02: 30 Lansoprazole (Prevacid) 30 mg BID GTB Last administered on 02/11/17 09:37; Admin Dose 30 MG; Start 02/08/17 at 09:00 Loratadine (Claritin) 10 mg DAILY GTB Last administered on 02/11/17 09:37; Admin Dose 10 MG; Start 02/08/17 at 09:00 Al Hydrox/Mg Hydrox/Simethicone (Mag-Al Plus) 30 ml DAILY GTB Last administered on 02/11/17 09:41; Admin Dose 30 ML; Start 02/08/17 at 09:00 Metoprolol Tartrate (Lopressor) 25 mg BID GTB Last administered on 02/11/17 09 :39; Admin Dose 25 MG; Start 02/08/17 at 09:00 Mineral Oil (Fleet Mineral Oil Enema) 133 ml DAILY PRN [place] RESP THERAPY; Start 02/08/17 at 02:30 Multivitamins Therapeutic (Theragran) 1 tab DAILY GTB Last administered on 02/11 09:36; Admin Dose 1 TAB; Start 02/08/17 at 09:00 Olanzapine (Zyprexa) 5 mg TID GTB Last administered on 02/11/17 09:38; Admin Dose 5 MG; Start 02/08/17 at 09:00 Eye Lubricant (Artificial Tears Oph) 1 drop TID BOTH EYES Last administered on 02/11/17 09:36; Admin Dose 1 DROP; Start 02/08/17 at 09:00 Nystatin 1 applic 1 applic DAILY PRN TOP NEEDED; Start 02/08/17 at 02:30 Meropenem/Sodium Chloride (Merrem 1 Gm/50 ml (Pmx)) 50 ml @ 100 mls/hr Q8 IVPB Last administered on 02/11/17 05:49; Admin Dose 100 MLS/HR; Start 02/08/17 at 06:00 Acetaminophen/ Hydrocodone Bitart ([place] (5/325)) 2 tab Q6 PRN PO SEVERE PAIN LEVEL 7-10 Last administered on 02/11/17 10:47; Admin Dose 2 TAB; Start at 03:51 Miscellaneous Information ([facility]) This patient galaviz... PRN PRN XX WOUND CARE; Start 02/10/17 at 18:00 Assessment/Plan Chief Complaint/Hosp Course 1. Tachycardia, sinus, multifactorial. 2. Hypoxemic hypercapnic respiratory failure, status post tracheostomy, vent dependent. 3. Sepsis and possible pneumonia. 4. Dysphagia. Currently tolerating p.o. medication apparently. 5. Anemia. 6. hx of Hypertension, under good control. 7. Paroxysmal atrial fibrillation. Currently remains in sinus rhythm. 8. Severe chronic obstructive pulmonary disease and emphysematous changes on the CT. 9. Leukocytosis from sepsis. 10. History of abdominal abscess. 11. pulm HTN RECOMMENDATIONS: CONT with vent support. Nutritional support will be continued. Deep venous thrombosis prophylaxis to be continued. Patient is on low-dose aspirin, not on anticoagulant due to severe anemia. Beta toby as tolerated will be continued. Continue to monitor on telemetry closely. will correct lytes as needed. abx management as per IM/ pulm team will give a dose of diamox now. THANK YOU BRENTON RIOS MD [facility] Problems: BRENTON RIOS MD Feb 11, 2017 14:13
[2017-02-11] MEDS ORDERED: ACETAZOLAMIDE 500 MG INJ IV ONE (14:30)
[2017-02-11 15:25] LABS: AADO2 Arterial 107.5 mmHg (7.0-24.0); Allen Test ACCEPTAB; Arterial Base Excess 9.7 mmol/L (-3.0-3); Arterial COHb 0.3 % (0.0-3.0); Arterial Fraction of Oxyhgb 89.8 % (93.0-99.0); Arterial MetHb 0.3 % (0.0-1.5); Arterial Total Hemglobin 11.4 g/dl (12.0-18.0); Blood Gas PS 16; MODE VENT - SIMV
[2017-02-11 17:45] LABS: AADO2 Arterial 107.7 mmHg (7.0-24.0); Allen Test ACCEPTAB; Arterial Base Excess 11.6 mmol/L (-3.0-3); Arterial COHb 0.3 % (0.0-3.0); Arterial Fraction of Oxyhgb 96.9 % (93.0-99.0); Arterial HCO3 38.7 mmol/L (22.0-26.0); Arterial MetHb 0.3 % (0.0-1.5); Arterial Total Hemglobin 10.1 g/dl (12.0-18.0); MODE VENT - PC
--- NOTE | 2017-02-11 20:38 | PN ---
DATE: 02/11/2017 SUBJECTIVE DATA: No events overnight. The patient is alert. Denies pain, discomfort, looks comfortable. He is afebrile. LABORATORY AND DIAGNOSTIC DATA: WBC today 10.3, platelets 235, no shift, no bands. BUN 7, creatinine 0.75. MICROBIOLOGY: Blood cultures remain negative. INDWELLING: Trach, Estrella and left upper extremity PICC line present on admission. ANTIMICROBIALS: The patient is on meropenem, day number 4. PHYSICAL EXAMINATION: GENERAL: This is a well-developed, obese middle-aged white man, who is awake, in no distress. HEENT: Head atraumatic, normocephalic. Sclerae anicteric. Buccal mucosa dry. NECK: Supple. CHEST: Rise symmetrical. Breath sounds diminished at bases with scattered crackles. HEART: S1, S2. ABDOMEN: Distended, soft. Bowel sounds present. EXTREMITIES: No cyanosis. ASSESSMENT: 1. Resolving sepsis. 2. Acute on chronic respiratory failure, possible aspiration event. 3. Dysphagia, status post G-tube discontinued, patient is tolerating a diet. 4. History of G-tube site cellulitis and intra-abdominal abscess drainage. 5. Obesity. 6. Bipolar disorder. PLAN: 1. Patient remains stable. 2. WBC tracing down. 3. We will continue him on current antibiotics for a couple more days. Dictated By: Candida Dial NP /brando/bradley /Document#: [id number]
--- NOTE | 2017-02-11 21:14 | PN ---
Date/Time of Note Date/Time of Note DATE: 02/11/17 TIME: 21:05 Assessment/Plan Lines/Catheters IV Catheter Type (from [facility]): PICC Line Estrella in Place (from [facility]): No Assessment/Plan Chief Complaint/Hosp Course 1. VDRF with pna: comfortable on vent currently -pulmonary toilet -abx -continue vent support 2. PNA: chronic vent, ? / #5; tolerating PO diet -abx -as above 3. Abdominal fluid collection: s/p drainage and drain placement (removed by patient) no abdominal discomfort -cont abx per sensitivity 4. Sepsis with leukocytosis: / #2,3, no fevers, tachycardia; leukocytosis resolved -supportive -as above 5. Dysphagia: oral nutrition, s/p swallow eval -careful monitoring and feeding assist 6. Anemia.:status post blood transfusion -monitor and transfuse prn 7. Hypertension -medical optimization -weight loss encouraged 8. Chronic kidney disease: improving cr -medical management -avoid nephrotoxic meds -renally dose meds Patient seen and examined in collaboration with Dr Boubacar Davis. Thank you. Problems: Subjective 24 Hr Interval Summary Transferred back to ICU. Currently comfortable on vent. No sob, congested cough. Able to tolerate PO diet. No fevers, chills, n/v/d/dysuria, abdominal pain/discomfort, galaviz, dizziness, cp. Exam/Review of Systems Vital Signs Vitals Vital Signs Date Time Temp Pulse Resp B/P Pulse Ox O2 Delivery O2 Flow Rate FiO2 02/11/17 20:53 86 24 100 35 02/11/17 20:00 98.0 110/68 Mechanical Ventilator 02/08/17 17:15 10.0 Intake and Output 02/10/17 02/10/17 02/11/17 15:00 23:00 07:00 Intake Total 530 ml 530 ml Output Total 400 ml 600 ml 700 ml Balance 130 ml -70 ml -700 ml Exam Free Text/Dictation Constitutional: alert, well developed Psych: nl mood/affect, anxious Head: atraumatic, normocephalic Eyes: nl lids, nl sclera ENMT: mucosa pink and moist, nl nasal mucosa & septum Neck: other (trach) Respiratory: No labored breathing, vent Cardiovascular: edema (min BLE), regular rate and rhythm Gastrointestinal: distended (min), soft, surgical scars, No tender Genitourinary - Male: No CVA tenderness Musculoskeletal: muscle weakness Extremities: pitting pedal edema (+2 ble) Neurological: nl mental status, nl strength Skin: No rash or lesions Results Result Diagram: 02/11/17 0515 02/11/17 0515 JEANNINE MATAMOROS NP Feb 11, 2017 21:14
[2017-02-11] MEDS: ATORVASTATIN 10 MG TAB GTB SCH (21:18)
[2017-02-12] VITALS (36 sets, daily range): BP systolic 96–147; BP diastolic 65–105; PULSE 86–121; RESP 17–24
[2017-02-12] MEDS: ALBUTEROL 18 GM INHALER INH SCH ×6 (01:05→20:02)
[2017-02-12 05:33] LABS: ABNORMAL IP MESSAGE 1; BASOPHILS % 0.3 % (0.0-2.0); EOSINOPHILS # 0.5 10^3/ul (0.0-0.5); EOSINOPHILS % 4.5 % (0.0-7.0); HEMOGLOBIN 8.3 g/dl (14.0-18.0); LYMPHOCYTES # 1.2 10^3/ul (0.8-2.9); LYMPHOCYTES % 10.1 % (15.0-51.0); MEAN CORPUSCULAR HEMOGLOBIN 28.4 pg (29.0-33.0); MEAN CORPUSCULAR HGB CONC 28.6 g/dl (32.0-37.0); MEAN CORPUSCULAR VOLUME 99.3 fl (82.0-101.0); MONOCYTES % 8.7 % (0.0-11.0); PLATELET COUNT 259 10^3/UL (140-415); POSITIVE DIFF @See below; RED BLOOD COUNT 2.92 10^6/ul (4.70-6.10); RED CELL DISTRIBUTION WIDTH 17.8 % (11.5-14.5); WHITE BLOOD COUNT 11.8 10^3/ul (4.8-10.8)
[2017-02-12] MEDS: PANTOPRAZOLE (EC) 40 MG TAB PO SCH (06:16)
[2017-02-12] MEDS: MEROPENEM 1 GM/50ML(PMX) 50 ML IVPB SCH ×3 (06:16→22:24)
[2017-02-12] MEDS ORDERED: ACETAZOLAMIDE 500 MG INJ IV ONE (08:00)
--- NOTE | 2017-02-12 08:32 | PN ---
DATE: 02/12/2017 SUBJECTIVE DATA: The patient is stable, remains on presser support. No other events noted. No hemoptysis, hematemesis, or hematochezia. OBJECTIVE DATA: VITAL SIGNS: Blood pressure is 195, respirations, pulse 83, temperature 98. HEENT: Head is normocephalic. NECK: Supple. HEART: Regular rate. LUNGS: Diminished breath sounds at the base. ABDOMEN: Soft, nontender to palpation. No rebound or guarding. EXTREMITIES: Negative for clubbing, cyanosis. Positive edema. DERMATOLOGIC: No rashes. MUSCULOSKELETAL: No joint effusions. NEUROLOGIC: No change in exam. MEDICATIONS: Reviewed. LABORATORY AND DIAGNOSTIC DATA: Sodium 138, potassium 4.1, chloride 93, BUN 7, creatinine 0.45. White count 9.8, hemoglobin 8.3, hematocrit 29, platelet count 259,000. The patient's ABG was reviewed. ASSESSMENT AND PLAN: 1. Ventilator-dependent failure. Ventilator settings reviewed. Arterial blood gases reviewed. The patient is currently on presser support. Will defer to Pulmonary to transition to possible assist control. 2. Sepsis secondary to healthcare-associated pneumonia. Patient clinically improving. Continue current antibiotic regimen. Follow up Infectious Disease. 3. Dysphagia. The patient is tolerating orals well. Continue. 4. Sinus tachycardia, multifactorial. Continue medical management. 5. Anemia. Monitor hemoglobin and hematocrit levels. 6. Hypertension. Continue current blood pressure regimen. 7. Coronary artery disease. Continue medical management. 8. Gastrointestinal and deep venous thrombosis prophylaxis. Continue proton pump inhibitor and Lovenox. 9. Leukocytosis, improving. 10. Status post-abdominal abscess. 11. Alkalosis. Etiology is compensatory due to underlying hypercapnia. 12. Lower extremity edema. Will give patient 1 dose of Diamox. Monitor closely. Dictated By: Bora Periera DO /brando/helene /Document#: [id number]
--- NOTE | 2017-02-12 09:15 | CONS ---
Date/Time of Note Date/Time of Note DATE: 02/12/17 TIME: 09:14 Assessment/Plan Assessment/Plan Chief Complaint/Hosp Course ID PROGRESS NOTE CURRENT ABX=> Day Merrem #5 24H INTERVAL SUMMARY * A/A/O -> communicates well by mouthing words, no fever, NAD, tells me he is "better" * ABD drains removed, voids in urinal * MICRO: BCX 02/07 (-) PHYSICAL EXAMINATION: GENERAL: VSS, NAD HEENT: Unremarkable, except for bowman NECK: Trach->L secure to Vent CHEST: Rise symmetrical bilaterally, without dyspnea on observation CV: RRR ABDOMEN: Soft, obese EXTREMITIES: Warm, moves extremities ID ASSESSMENT: 56 yo M admit with: 1. Resolving sepsis-> likely due to Aspiration PNA * BCX 02/07 (-) 2. Acute on chronic respiratory failure, possible aspiration event @ [place] 3. Dysphagia, status post G-tube discontinued, patient is tolerating a diet. 4. History of G-tube site cellulitis and intra-abdominal abscess drainage. 5. Obesity. 6. Bipolar disorder. (-) MRSA Nares INVASIVES: PICC, Trach ABX ALLERGY: VANCO CURRENT ABX=>Day # 5 Merrem ID PLAN=> Monitor ABX 1. Continue Merrem over the weekend 2. Aspiration precautions Problems: Consultation Date/Type/Reason Admit Date/Time Feb 07, 2017 at 22:40 Initial Consult Date 02/08/17 Type of Consultation: ID Referring Provider: DAMON BOSWELL DO Exam/Review of Systems Vital Signs Vitals Vital Signs Date Time Temp Pulse Resp B/P Pulse Ox O2 Delivery O2 Flow Rate FiO2 02/12/17 05:25 91 24 100 35 02/11/17 21:00 111/95 Mechanical Ventilator 02/11/17 20:00 98.0 02/08/17 17:15 10.0 Intake and Output 02/11/17 02/11/17 02/12/17 15:00 23:00 07:00 Intake Total 120 ml 350 ml 450 ml Output Total 1025 ml 1825 ml 1275 ml Balance -905 ml -1475 ml -825 ml Results Result Diagram: 02/12/17 0430 02/11/17 0515 Results 24 hrs Laboratory Tests Test 02/11/17 15:00 02/11/17 16:59 02/11/17 17:23 02/12/17 04:30 Blood Gas Specimen Source Blood arterial Blood arterial Arterial Blood Date Drawn 02/11/2017 3:15:22 PM 02/11/2017 5:34:50 PM Arterial Blood pH (Temp corrected) 7.248 *L 7.382 Arterial Blood pCO2 (Temp correct) 93.7 *H 66.6 H Arterial Blood pO2 (Temp corrected) 69.9 L 100.9 H Arterial Blood HCO3 40.0 H 38.7 H Arterial Blood Base Excess 9.7 H 11.6 H Arterial Blood Oxygen Saturation 90.3 L 97.5 Elijah Test ACCEPTAB ACCEPTAB Arterial Blood Gas Puncture Site Right Radial Right Radial Arterial Blood Carboxyhemoglobin 0.3 0.3 Arterial Blood Methemoglobin 0.3 0.3 Blood Gas A-a O2 Differential 107.5 H 107.7 H Oxyhemoglobin Percent 89.8 L 96.9 Total Hemoglobin 11.4 L 10.1 L Blood Gas Temperature 37.0 37.0 Blood Gas Respiration Rate 24.0 24.0 Blood Gas Actual Respiration Rate 24 24 Blood Gas Modality VENT - SIMV VENT - PC FiO2 40.0 40.0 Blood Gas Low PEEP Setting 5.0 5.0 Blood Gas Pressure Support 16 Blood Gas Critical Value Read Back CM Delaney Blood Gas Notified Whom AC AC Blood Gas Notified Time 02/11/2017 3:23:14 PM 02/11/2017 5:43:52 PM Bedside Glucose 89 Blood Gas Inspiratory Pressure 40.0 White Blood Count 11.8 H Red Blood Count 2.92 L Hemoglobin 8.3 L Hematocrit 29.0 L Mean Corpuscular Volume 99.3 Mean Corpuscular Hemoglobin 28.4 L Mean Corpuscular Hemoglobin Concent 28.6 L Red Cell Distribution Width 17.8 H Platelet Count 259 Mean Platelet Volume 10.0 Neutrophils % 76.0 Lymphocytes % 10.1 L Monocytes % 8.7 Eosinophils % 4.5 Basophils % 0.3 Nucleated Red Blood Cells % 0.0 Neutrophils # (Manual) 9.0 H Lymphocytes # 1.2 Monocytes # 1.0 H Eosinophils # 0.5 Basophils # 0.0 Nucleated Red Blood Cells # 0.0 Medications Medications Current Medications Ondansetron HCl (Zofran Inj) 4 mg Q6H PRN IV NAUSEA AND/OR VOMITING; Start at 02:30 Acetaminophen/ Hydrocodone Bitart ([place] (5/325)) 1 tab Q6H PRN PO MODERATE PAIN LEVEL 4-6 Last administered on 02/08/17 10:16; Admin Dose 1 TAB; Start at 02:30 Pantoprazole (Protonix Tab) 40 mg DAILY@06 PO Last administered on 02/12/17 06 :16; Admin Dose 40 MG; Start 02/08/17 at 06:00 Enoxaparin Sodium (Lovenox) 40 mg DAILY SC Last administered on 02/11/17 09:41 ; Admin Dose 40 MG; Start 02/08/17 at 09:00 Acetaminophen (Tylenol Tab) 1,000 mg Q6H PRN PO MODERATE PAIN LEVEL 4-6; Start 02/08/17 at 02:30 Acetaminophen (Tylenol Tab) 650 mg Q6H PRN GTB FEVER GREATER THAN 100.6; Start 02/08/17 at 02:30 Acetaminophen (Tylenol Tab) 650 mg Q6H PRN GTB MILD PAIN LEVEL 1-3; Start 02/08 at 02:30 Ascorbic Acid (Vitamin C) 500 mg DAILY GTB Last administered on 02/11/17 09:38 ; Admin Dose 500 MG; Start 02/08/17 at 09:00 Aspirin (Halfprin) 81 mg DAILY PO Last administered on 02/11/17 09:48; Admin Dose 81 MG; Start 02/08/17 at 09:00 Atorvastatin Calcium (Lipitor) 5 mg QHS GTB Last administered on 02/11/17 21: 18; Admin Dose 5 MG; Start 02/08/17 at 21:00 Bisacodyl (Dulcolax Supp) 10 mg DAILY PRN [place] CONSTIPATION; Start 02/08/17 at 02 :30 Cholestyramine Resin (Questran) 1 pkt BID PO Last administered on 02/11/17 21: 19; Admin Dose 1 PKT; Start 02/08/17 at 09:00 Docusate Sodium (Colace) 200 mg QHS PRN PO CONSTIPATION; Start 02/08/17 at 02: 30 Lansoprazole (Prevacid) 30 mg BID GTB Last administered on 02/11/17 21:18; Admin Dose 30 MG; Start 02/08/17 at 09:00 Loratadine (Claritin) 10 mg DAILY GTB Last administered on 02/11/17 09:37; Admin Dose 10 MG; Start 02/08/17 at 09:00 Al Hydrox/Mg Hydrox/Simethicone (Mag-Al Plus) 30 ml DAILY GTB Last administered on 02/11/17 09:41; Admin Dose 30 ML; Start 02/08/17 at 09:00 Metoprolol Tartrate (Lopressor) 25 mg BID GTB Last administered on 02/11/17 21 :19; Admin Dose 25 MG; Start 02/08/17 at 09:00 Mineral Oil (Fleet Mineral Oil Enema) 133 ml DAILY PRN [place] RESP THERAPY; Start 02/08/17 at 02:30 Multivitamins Therapeutic (Theragran) 1 tab DAILY GTB Last administered on 02/11 09:36; Admin Dose 1 TAB; Start 02/08/17 at 09:00 Olanzapine (Zyprexa) 5 mg TID GTB Last administered on 02/11/17 21:19; Admin Dose 5 MG; Start 02/08/17 at 09:00 Eye Lubricant (Artificial Tears Oph) 1 drop TID BOTH EYES Last administered on 02/11/17 21:20; Admin Dose 1 DROP; Start 02/08/17 at 09:00 Nystatin 1 applic 1 applic DAILY PRN TOP NEEDED; Start 02/08/17 at 02:30 Meropenem/Sodium Chloride (Merrem 1 Gm/50 ml (Pmx)) 50 ml @ 100 mls/hr Q8 IVPB Last administered on 02/12/17 06:16; Admin Dose 100 MLS/HR; Start 02/08/17 at 06:00 Acetaminophen/ Hydrocodone Bitart ([place] (5/325)) 2 tab Q6 PRN PO SEVERE PAIN LEVEL 7-10 Last administered on 02/11/17 10:47; Admin Dose 2 TAB; Start at 03:51 Miscellaneous Information (Pending [facility] Order For Wound Care) This patient galaviz... PRN PRN XX WOUND CARE; Start 02/10/17 at 18:00 RAUL GOMEZ NP Feb 12, 2017 09:15
[2017-02-12] MEDS: ASCORBIC ACID 500 MG TAB GTB SCH (09:28)
[2017-02-12] MEDS: HYDROCODONE/APAP (5/325) TAB PO PRN ×3 (09:28→20:31)
[2017-02-12] MEDS: AL HYDROX/MG HYDROX/SIMETH 30 ML CUP GTB SCH (09:28)
[2017-02-12] MEDS: ASPIRIN (EC) 81 MG TAB PO SCH (09:29)
[2017-02-12] MEDS: LORATADINE 10 MG TAB GTB SCH (09:29)
[2017-02-12] MEDS: OLANZAPINE 5 MG TAB GTB SCH ×3 (09:29→20:30)
[2017-02-12] MEDS: LANSOPRAZOLE 30 MG CAP GTB SCH ×2 (09:29→20:30)
[2017-02-12] MEDS: CHOLESTYRAMINE 4 GM PACKET PO SCH ×2 (09:29→20:30)
[2017-02-12] MEDS: MULTIVITAMINS THERAPEUTIC TAB GTB SCH (09:29)
[2017-02-12] MEDS: DOCUSATE SODIUM 100 MG CAP PO PRN (09:29)
[2017-02-12] MEDS: METOPROLOL 25 MG TAB GTB SCH ×2 (09:29→20:30)
[2017-02-12] MEDS: ARTIFICIAL TEARS 15 ML OPH BOTH EYES SCH ×3 (09:30→20:31)
[2017-02-12] MEDS: ENOXAPARIN 40 MG/0.4 ML SYG SC SCH (09:44)
[2017-02-12] MEDS: IPRATROPIUM (HFA) 12.9 GM INHALER INH SCH ×4 (10:49→20:02)
[2017-02-12 11:04] LABS: CALCIUM 9.2 mg/dl (8.4-10.2); CREATININE 0.53 mg/dl (0.61-1.24); POTASSIUM 4.3 mmol/L (3.5-5.1)
--- NOTE | 2017-02-12 11:33 | PN ---
Date/Time of Note Date/Time of Note DATE: 02/12/17 TIME: 11:29 Assessment/Plan Lines/Catheters IV Catheter Type (from [facility]): PICC Line Estrella in Place (from [facility]): No Assessment/Plan Chief Complaint/Hosp Course 1. VDRF with pna: comfortable on vent currently on AC setting -pulmonary toilet -abx -continue vent support 2. PNA: chronic vent, ? 07/22 #5; tolerating PO diet -abx -as above 3. Abdominal fluid collection: s/p drainage and drain placement (removed by patient) no abdominal discomfort -cont abx per sensitivity 4. Sepsis with leukocytosis: 07/22 #2,3, wbc up again today no fevers, tachycardia; -supportive -as above 5. Dysphagia: oral nutrition, s/p swallow eval -careful monitoring and feeding assist 6. Anemia.:status post blood transfusion -monitor and transfuse prn 7. Hypertension with tachycardia -medical optimization -weight loss encouraged 8. Chronic kidney disease: improving cr -medical management -avoid nephrotoxic meds -renally dose meds Patient seen and examined in collaboration with Dr Boubacar Davis. Thank you. Problems: Subjective 24 Hr Interval Summary Comfortable. Anxious. Tachycardic but no fevers. No abdominal discomfort/pain. Comfortable on vent. No chills, sob, congested cough, cp, palpitations, n/v/d/ dysuria. Exam/Review of Systems Vital Signs Vitals Vital Signs Date Time Temp Pulse Resp B/P Pulse Ox O2 Delivery O2 Flow Rate FiO2 02/12/17 05:25 91 24 100 35 02/11/17 21:00 111/95 Mechanical Ventilator 02/11/17 20:00 98.0 02/08/17 17:15 10.0 Intake and Output 02/11/17 02/11/17 02/12/17 15:00 23:00 07:00 Intake Total 120 ml 350 ml 700 ml Output Total 1025 ml 1825 ml 1875 ml Balance -905 ml -1475 ml -1175 ml Exam Free Text/Dictation Constitutional: alert, well developed Psych: nl mood/affect, anxious Head: atraumatic, normocephalic Eyes: nl lids, nl sclera ENMT: mucosa pink and moist, nl nasal mucosa & septum Neck: other (trach) Respiratory: No labored breathing, vent Cardiovascular: edema (min BLE), regular rate and rhythm Gastrointestinal: distended (min), soft, surgical scars, No tender Genitourinary - Male: No CVA tenderness Musculoskeletal: muscle weakness Extremities: pitting pedal edema (+2 ble) Neurological: nl mental status, nl strength Skin: No rash or lesions Results Result Diagram: 02/12/17 0430 02/12/17 1016 JEANNINE MATAMOROS NP Feb 12, 2017 11:33
--- NOTE | 2017-02-12 12:32 | CONS ---
Date/Time of Note Date/Time of Note DATE: 02/12/17 TIME: 12:31 Consult Date/Type/Reason Admit Date/Time Feb 07, 2017 at 22:40 Initial Consult Date 02/08/17 Type of Consultation: CARDIOLGY Ordering Provider: DAMON BOSWELL DO Subjective CARDIOLOGY FOLLOW UP: d/w staff and rhythm was reviewed. pt remains in NSR/ Sinus tachy. but no Afib he remains on vent. no reports of any chest pain or pressure or palpitations. OBJECTIVE: HEENT: Head normocephalic, atraumatic. Eyes: Pupils are equal. General Obese gentleman. S/P Trach on vent NECK: Status post tracheostomy, on the vent now. CARDIAC: Tachycardic. grade I systolic murmur LUNGS: aneriorly with no wheezing, no rhonchi. ABDOMEN: Status post previous drainage site. No rebound or guarding. EXTREMITIES: Positive edema in extremities. Diffuse lower extremity edema. NEUROLOGIC: He is comfortably sleeping and opens his eyes. . PSYCHIATRIC: Appears calm. echo 02/10/17: personally reviewed; 1. Normal left ventricular systolic function. Normal left ventricular cavity size. Normal left ventricular wall thickness. Ejection fraction is visually estimated at 60 %. 2. Normal appearance and function of the mitral valve with trace physiologic regurgitation. 3. No significant aortic stenosis or insufficiency. Aortic cusps appear mildly calcified. 4. Normal appearance of the tricuspid valve. Estimated peak PA systolic pressure 59 mmHg. There is mild tricuspid regurgitation. Objective Vital Signs Date Time Temp Pulse Resp B/P Pulse Ox O2 Delivery O2 Flow Rate FiO2 02/12/17 12:00 93 24 117/78 99 02/12/17 11:53 98.7 02/12/17 05:25 35 02/11/17 21:00 Mechanical Ventilator 02/08/17 17:15 10.0 Intake and Output 02/11/17 02/11/17 02/12/17 15:00 23:00 07:00 Intake Total 120 ml 350 ml 700 ml Output Total 1025 ml 1825 ml 1875 ml Balance -905 ml -1475 ml -1175 ml Results/Medications Result Diagram: 02/12/17 0430 02/12/17 1016 Results 24 hrs Laboratory Tests Test 02/11/17 15:00 02/11/17 16:59 02/11/17 17:23 02/12/17 04:30 Blood Gas Specimen Source Blood arterial Blood arterial Arterial Blood Date Drawn 02/11/2017 3:15:22 PM 02/11/2017 5:34:50 PM Arterial Blood pH (Temp corrected) 7.248 *L 7.382 Arterial Blood pCO2 (Temp correct) 93.7 *H 66.6 H Arterial Blood pO2 (Temp corrected) 69.9 L 100.9 H Arterial Blood HCO3 40.0 H 38.7 H Arterial Blood Base Excess 9.7 H 11.6 H Arterial Blood Oxygen Saturation 90.3 L 97.5 Elijah Test ACCEPTAB ACCEPTAB Arterial Blood Gas Puncture Site Right Radial Right Radial Arterial Blood Carboxyhemoglobin 0.3 0.3 Arterial Blood Methemoglobin 0.3 0.3 Blood Gas A-a O2 Differential 107.5 H 107.7 H Oxyhemoglobin Percent 89.8 L 96.9 Total Hemoglobin 11.4 L 10.1 L Blood Gas Temperature 37.0 37.0 Blood Gas Respiration Rate 24.0 24.0 Blood Gas Actual Respiration Rate 24 24 Blood Gas Modality VENT - SIMV VENT - PC FiO2 40.0 40.0 Blood Gas Low PEEP Setting 5.0 5.0 Blood Gas Pressure Support 16 Blood Gas Critical Value Read Back CM Delaney Blood Gas Notified Whom AC AC Blood Gas Notified Time 02/11/2017 3:23:14 PM 02/11/2017 5:43:52 PM Bedside Glucose 89 Blood Gas Inspiratory Pressure 40.0 White Blood Count 11.8 H Red Blood Count 2.92 L Hemoglobin 8.3 L Hematocrit 29.0 L Mean Corpuscular Volume 99.3 Mean Corpuscular Hemoglobin 28.4 L Mean Corpuscular Hemoglobin Concent 28.6 L Red Cell Distribution Width 17.8 H Platelet Count 259 Mean Platelet Volume 10.0 Neutrophils % 76.0 Lymphocytes % 10.1 L Monocytes % 8.7 Eosinophils % 4.5 Basophils % 0.3 Nucleated Red Blood Cells % 0.0 Neutrophils # (Manual) 9.0 H Lymphocytes # 1.2 Monocytes # 1.0 H Eosinophils # 0.5 Basophils # 0.0 Nucleated Red Blood Cells # 0.0 Test 02/12/17 10:16 Sodium Level 146 H Potassium Level 4.3 Chloride Level 100 Carbon Dioxide Level 36 H Anion Gap 14 # Blood Urea Nitrogen 4 L Creatinine 0.53 L Glucose Level 89 Calcium Level 9.2 Medications Current Medications Ondansetron HCl (Zofran Inj) 4 mg Q6H PRN IV NAUSEA AND/OR VOMITING; Start at 02:30 Acetaminophen/ Hydrocodone Bitart ([place] (5/325)) 1 tab Q6H PRN PO MODERATE PAIN LEVEL 4-6 Last administered on 02/08/17 10:16; Admin Dose 1 TAB; Start at 02:30 Pantoprazole (Protonix Tab) 40 mg DAILY@06 PO Last administered on 02/12/17 06 :16; Admin Dose 40 MG; Start 02/08/17 at 06:00 Enoxaparin Sodium (Lovenox) 40 mg DAILY SC Last administered on 02/12/17 09:44 ; Admin Dose 40 MG; Start 02/08/17 at 09:00 Acetaminophen (Tylenol Tab) 1,000 mg Q6H PRN PO MODERATE PAIN LEVEL 4-6; Start 02/08/17 at 02:30 Acetaminophen (Tylenol Tab) 650 mg Q6H PRN GTB FEVER GREATER THAN 100.6; Start 02/08/17 at 02:30 Acetaminophen (Tylenol Tab) 650 mg Q6H PRN GTB MILD PAIN LEVEL 1-3; Start 02/08 at 02:30 Ascorbic Acid (Vitamin C) 500 mg DAILY GTB Last administered on 02/12/17 09:28 ; Admin Dose 500 MG; Start 02/08/17 at 09:00 Aspirin (Halfprin) 81 mg DAILY PO Last administered on 02/12/17 09:29; Admin Dose 81 MG; Start 02/08/17 at 09:00 Atorvastatin Calcium (Lipitor) 5 mg QHS GTB Last administered on 02/11/17 21: 18; Admin Dose 5 MG; Start 02/08/17 at 21:00 Bisacodyl (Dulcolax Supp) 10 mg DAILY PRN [place] CONSTIPATION; Start 02/08/17 at 02 :30 Cholestyramine Resin (Questran) 1 pkt BID PO Last administered on 02/12/17 09: 29; Admin Dose 1 PKT; Start 02/08/17 at 09:00 Docusate Sodium (Colace) 200 mg QHS PRN PO CONSTIPATION Last administered on 09:29; Admin Dose 200 MG; Start 02/08/17 at 02:30 Lansoprazole (Prevacid) 30 mg BID GTB Last administered on 02/12/17 09:29; Admin Dose 30 MG; Start 02/08/17 at 09:00 Loratadine (Claritin) 10 mg DAILY GTB Last administered on 02/12/17 09:29; Admin Dose 10 MG; Start 02/08/17 at 09:00 Al Hydrox/Mg Hydrox/Simethicone (Mag-Al Plus) 30 ml DAILY GTB Last administered on 02/12/17 09:28; Admin Dose 30 ML; Start 02/08/17 at 09:00 Metoprolol Tartrate (Lopressor) 25 mg BID GTB Last administered on 02/12/17 09 :29; Admin Dose 25 MG; Start 02/08/17 at 09:00 Mineral Oil (Fleet Mineral Oil Enema) 133 ml DAILY PRN [place] RESP THERAPY; Start 02/08/17 at 02:30 Multivitamins Therapeutic (Theragran) 1 tab DAILY GTB Last administered on 02/12 09:29; Admin Dose 1 TAB; Start 02/08/17 at 09:00 Olanzapine (Zyprexa) 5 mg TID GTB Last administered on 02/12/17 09:29; Admin Dose 5 MG; Start 02/08/17 at 09:00 Eye Lubricant (Artificial Tears Oph) 1 drop TID BOTH EYES Last administered on 02/12/17 09:30; Admin Dose 1 DROP; Start 02/08/17 at 09:00 Nystatin 1 applic 1 applic DAILY PRN TOP NEEDED; Start 02/08/17 at 02:30 Meropenem/Sodium Chloride (Merrem 1 Gm/50 ml (Pmx)) 50 ml @ 100 mls/hr Q8 IVPB Last administered on 02/12/17 06:16; Admin Dose 100 MLS/HR; Start 02/08/17 at 06:00 Acetaminophen/ Hydrocodone Bitart ([place] (5/325)) 2 tab Q6 PRN PO SEVERE PAIN LEVEL 7-10 Last administered on 02/12/17 09:28; Admin Dose 2 TAB; Start at 03:51 Miscellaneous Information [facility] This patient galaviz... PRN PRN XX WOUND CARE; Start 02/10/17 at 18:00 Assessment/Plan Chief Complaint/Hosp Course 1. Tachycardia, sinus, multifactorial. 2. Hypoxemic hypercapnic respiratory failure, status post tracheostomy, vent dependent. 3. Sepsis and possible pneumonia. 4. Dysphagia. Currently tolerating p.o. medication apparently. 5. Anemia. 6. hx of Hypertension, under good control. 7. Paroxysmal atrial fibrillation. Currently remains in sinus rhythm. 8. Severe chronic obstructive pulmonary disease and emphysematous changes on the CT. 9. Leukocytosis from sepsis. 10. History of abdominal abscess. 11. pulm HTN RECOMMENDATIONS: CONT with vent support. Nutritional support will be continued. Deep venous thrombosis prophylaxis to be continued. Patient is on low-dose aspirin, not on anticoagulant due to severe anemia. Beta toby as tolerated will be continued. Continue to monitor on telemetry closely. will correct lytes as needed. abx management as per IM/ pulm team THANK YOU BRENTON RIOS MD [facility] Problems: BRENTON RIOS MD Feb 12, 2017 12:32
--- NOTE | 2017-02-12 14:59 | CONS ---
Date/Time of Note Date/Time of Note DATE: 02/12/17 TIME: 14:56 Consult Date/Type/Reason Admit Date/Time Feb 07, 2017 at 22:40 Initial Consult Date 02/08/17 Type of Consultation: Pulm/CCM Ordering Provider: DAMON BOSWELL DO Subjective No events. On PC ventilation Objective Vital Signs Date Time Temp Pulse Resp B/P Pulse Ox O2 Delivery O2 Flow Rate FiO2 02/12/17 12:00 93 24 117/78 99 02/12/17 11:55 35 02/12/17 11:53 98.7 02/11/17 21:00 Mechanical Ventilator 02/08/17 17:15 10.0 Intake and Output 02/11/17 02/11/17 02/12/17 15:00 23:00 07:00 Intake Total 120 ml 350 ml 700 ml Output Total 1025 ml 1825 ml 1875 ml Balance -905 ml -1475 ml -1175 ml Exam HEENT: Neck supple; no JVD; no LAD; trach site clear CVS: RRR, S1 and S2 CHEST: Diminished B/L ABD: Soft, NT, + BS EXT: No c/c/e Results/Medications Result Diagram: 02/12/17 0430 02/12/17 1016 Results 24 hrs Laboratory Tests Test 02/11/17 15:00 02/11/17 16:59 02/11/17 17:23 02/12/17 04:30 Blood Gas Specimen Source Blood arterial Blood arterial Arterial Blood Date Drawn 02/11/2017 3:15:22 PM 02/11/2017 5:34:50 PM Arterial Blood pH (Temp corrected) 7.248 *L 7.382 Arterial Blood pCO2 (Temp correct) 93.7 *H 66.6 H Arterial Blood pO2 (Temp corrected) 69.9 L 100.9 H Arterial Blood HCO3 40.0 H 38.7 H Arterial Blood Base Excess 9.7 H 11.6 H Arterial Blood Oxygen Saturation 90.3 L 97.5 Elijah Test ACCEPTAB ACCEPTAB Arterial Blood Gas Puncture Site Right Radial Right Radial Arterial Blood Carboxyhemoglobin 0.3 0.3 Arterial Blood Methemoglobin 0.3 0.3 Blood Gas A-a O2 Differential 107.5 H 107.7 H Oxyhemoglobin Percent 89.8 L 96.9 Total Hemoglobin 11.4 L 10.1 L Blood Gas Temperature 37.0 37.0 Blood Gas Respiration Rate 24.0 24.0 Blood Gas Actual Respiration Rate 24 24 Blood Gas Modality VENT - SIMV VENT - PC FiO2 40.0 40.0 Blood Gas Low PEEP Setting 5.0 5.0 Blood Gas Pressure Support 16 Blood Gas Critical Value Read Back CM Delaney Blood Gas Notified Whom AC AC Blood Gas Notified Time 02/11/2017 3:23:14 PM 02/11/2017 5:43:52 PM Bedside Glucose 89 Blood Gas Inspiratory Pressure 40.0 White Blood Count 11.8 H Red Blood Count 2.92 L Hemoglobin 8.3 L Hematocrit 29.0 L Mean Corpuscular Volume 99.3 Mean Corpuscular Hemoglobin 28.4 L Mean Corpuscular Hemoglobin Concent 28.6 L Red Cell Distribution Width 17.8 H Platelet Count 259 Mean Platelet Volume 10.0 Neutrophils % 76.0 Lymphocytes % 10.1 L Monocytes % 8.7 Eosinophils % 4.5 Basophils % 0.3 Nucleated Red Blood Cells % 0.0 Neutrophils # (Manual) 9.0 H Lymphocytes # 1.2 Monocytes # 1.0 H Eosinophils # 0.5 Basophils # 0.0 Nucleated Red Blood Cells # 0.0 Test 02/12/17 10:16 Sodium Level 146 H Potassium Level 4.3 Chloride Level 100 Carbon Dioxide Level 36 H Anion Gap 14 # Blood Urea Nitrogen 4 L Creatinine 0.53 L Glucose Level 89 Calcium Level 9.2 Medications Current Medications Ondansetron HCl (Zofran Inj) 4 mg Q6H PRN IV NAUSEA AND/OR VOMITING; Start at 02:30 Acetaminophen/ Hydrocodone Bitart ([place] (5/325)) 1 tab Q6H PRN PO MODERATE PAIN LEVEL 4-6 Last administered on 02/08/17 10:16; Admin Dose 1 TAB; Start at 02:30 Pantoprazole (Protonix Tab) 40 mg DAILY@06 PO Last administered on 02/12/17 06 :16; Admin Dose 40 MG; Start 02/08/17 at 06:00 Enoxaparin Sodium (Lovenox) 40 mg DAILY SC Last administered on 02/12/17 09:44 ; Admin Dose 40 MG; Start 02/08/17 at 09:00 Acetaminophen (Tylenol Tab) 1,000 mg Q6H PRN PO MODERATE PAIN LEVEL 4-6; Start 02/08/17 at 02:30 Acetaminophen (Tylenol Tab) 650 mg Q6H PRN GTB FEVER GREATER THAN 100.6; Start 02/08/17 at 02:30 Acetaminophen (Tylenol Tab) 650 mg Q6H PRN GTB MILD PAIN LEVEL 1-3; Start 02/08 at 02:30 Ascorbic Acid (Vitamin C) 500 mg DAILY GTB Last administered on 02/12/17 09:28 ; Admin Dose 500 MG; Start 02/08/17 at 09:00 Aspirin (Halfprin) 81 mg DAILY PO Last administered on 02/12/17 09:29; Admin Dose 81 MG; Start 02/08/17 at 09:00 Atorvastatin Calcium (Lipitor) 5 mg QHS GTB Last administered on 02/11/17 21: 18; Admin Dose 5 MG; Start 02/08/17 at 21:00 Bisacodyl (Dulcolax Supp) 10 mg DAILY PRN [place] CONSTIPATION; Start 02/08/17 at 02 :30 Cholestyramine Resin (Questran) 1 pkt BID PO Last administered on 02/12/17 09: 29; Admin Dose 1 PKT; Start 02/08/17 at 09:00 Docusate Sodium (Colace) 200 mg QHS PRN PO CONSTIPATION Last administered on 09:29; Admin Dose 200 MG; Start 02/08/17 at 02:30 Lansoprazole (Prevacid) 30 mg BID GTB Last administered on 02/12/17 09:29; Admin Dose 30 MG; Start 02/08/17 at 09:00 Loratadine (Claritin) 10 mg DAILY GTB Last administered on 02/12/17 09:29; Admin Dose 10 MG; Start 02/08/17 at 09:00 Al Hydrox/Mg Hydrox/Simethicone (Mag-Al Plus) 30 ml DAILY GTB Last administered on 02/12/17 09:28; Admin Dose 30 ML; Start 02/08/17 at 09:00 Metoprolol Tartrate (Lopressor) 25 mg BID GTB Last administered on 02/12/17 09 :29; Admin Dose 25 MG; Start 02/08/17 at 09:00 Mineral Oil (Fleet Mineral Oil Enema) 133 ml DAILY PRN [place] RESP THERAPY; Start 02/08/17 at 02:30 Multivitamins Therapeutic (Theragran) 1 tab DAILY GTB Last administered on 02/12 09:29; Admin Dose 1 TAB; Start 02/08/17 at 09:00 Olanzapine (Zyprexa) 5 mg TID GTB Last administered on 02/12/17 13:58; Admin Dose 5 MG; Start 02/08/17 at 09:00 Eye Lubricant (Artificial Tears Oph) 1 drop TID BOTH EYES Last administered on 02/12/17 13:59; Admin Dose 1 DROP; Start 02/08/17 at 09:00 Nystatin 1 applic 1 applic DAILY PRN TOP NEEDED; Start 02/08/17 at 02:30 Meropenem/Sodium Chloride (Merrem 1 Gm/50 ml (Pmx)) 50 ml @ 100 mls/hr Q8 IVPB Last administered on 02/12/17 06:16; Admin Dose 100 MLS/HR; Start 02/08/17 at 06:00 Acetaminophen/ Hydrocodone Bitart ([place] (5/325)) 2 tab Q6 PRN PO SEVERE PAIN LEVEL 7-10 Last administered on 02/12/17 09:28; Admin Dose 2 TAB; Start at 03:51 Miscellaneous Information (Pending [facility] Order For Wound Care) This patient galaviz... PRN PRN XX WOUND CARE; Start 02/10/17 at 18:00 Assessment/Plan Additional Assessment/Plan IMP: 1. Acute on chronic hypercapnic Resp Failure--due to COPD exacerbation 2. COPD exacerbation 3. Tachycardia 4. Anemia RECS: 1. Vent--> switch to VC+ ventilation with target Vt 350 2. BDs with duonebs 3. Solumedrol IV 4. Abx 5. Titrate FiO2 to SpO2 88-92% 35 min cc time EVONNE PICKERING MD Feb 12, 2017 14:59
[2017-02-12] MEDS: METHYLPREDNISOLONE 40 MG INJ IV SCH ×2 (15:39→22:24)
[2017-02-12] MEDS: ATORVASTATIN 10 MG TAB GTB SCH (20:30)
[2017-02-13] VITALS (33 sets, daily range): BP systolic 109–155; BP diastolic 76–105; PULSE 85–124; RESP 19–25
[2017-02-13] MEDS: ALBUTEROL 18 GM INHALER INH SCH ×6 (00:55→20:11)
[2017-02-13] MEDS: HYDROCODONE/APAP (5/325) TAB PO PRN ×3 (02:37→20:01)
[2017-02-13 05:37] LABS: AADO2 Arterial 105.2 mmHg (7.0-24.0); Allen Test ACCEPTAB; Arterial COHb 0.1 % (0.0-3.0); Arterial Fraction of Oxyhgb 93.8 % (93.0-99.0); Arterial HCO3 30.9 mmol/L (22.0-26.0); Arterial MetHb 0.1 % (0.0-1.5); Arterial Total Hemglobin 11.3 g/dl (12.0-18.0); MODE VENT - PC
[2017-02-13] MEDS: MEROPENEM 1 GM/50ML(PMX) 50 ML IVPB SCH ×3 (06:03→21:19)
[2017-02-13] MEDS: PANTOPRAZOLE (EC) 40 MG TAB PO SCH (06:03)
[2017-02-13 06:10] LABS: ABNORMAL IP MESSAGE 1; HEMATOCRIT 30.6 % (42.0-52.0); HEMOGLOBIN 9.4 g/dl (14.0-18.0); LYMPHOCYTES # 0.4 10^3/ul (0.8-2.9); LYMPHOCYTES % 3.8 % (15.0-51.0); MEAN CORPUSCULAR HEMOGLOBIN 29.7 pg (29.0-33.0); MEAN CORPUSCULAR HGB CONC 30.7 g/dl (32.0-37.0); MEAN CORPUSCULAR VOLUME 96.5 fl (82.0-101.0); MONOCYTE # 0.1 10^3/ul (0.3-0.9); MONOCYTES % 0.5 % (0.0-11.0); NEUTROPHILS % 95.3 % (39.0-77.0); PLATELET COUNT 277 10^3/UL (140-415); POSITIVE DIFF @See below; RED BLOOD COUNT 3.17 10^6/ul (4.70-6.10); RED CELL DISTRIBUTION WIDTH 17.2 % (11.5-14.5); WHITE BLOOD COUNT 9.8 10^3/ul (4.8-10.8)
[2017-02-13 06:33] LABS: CREATININE 0.54 mg/dl (0.61-1.24); MAGNESIUM 1.9 mg/dl (1.7-2.5); PHOSPHORUS 3.7 mg/dl (2.5-4.9)
[2017-02-13] MEDS: IPRATROPIUM (HFA) 12.9 GM INHALER INH SCH ×4 (07:52→20:11)
[2017-02-13] MEDS: ASPIRIN (EC) 81 MG TAB PO SCH (08:07)
[2017-02-13] MEDS: LORATADINE 10 MG TAB GTB SCH (08:07)
[2017-02-13] MEDS: MULTIVITAMINS THERAPEUTIC TAB GTB SCH (08:08)
[2017-02-13] MEDS: CHOLESTYRAMINE 4 GM PACKET PO SCH ×3 (08:08→20:05)
[2017-02-13] MEDS: OLANZAPINE 5 MG TAB GTB SCH ×3 (08:08→20:01)
[2017-02-13] MEDS: AL HYDROX/MG HYDROX/SIMETH 30 ML CUP GTB SCH (08:08)
[2017-02-13] MEDS: LANSOPRAZOLE 30 MG CAP GTB SCH ×2 (08:08→20:02)
[2017-02-13] MEDS: METHYLPREDNISOLONE 40 MG INJ IV SCH ×2 (08:08→20:03)
[2017-02-13] MEDS: ASCORBIC ACID 500 MG TAB GTB SCH (08:08)
[2017-02-13] MEDS: METOPROLOL 25 MG TAB GTB SCH ×2 (08:08→20:02)
[2017-02-13] MEDS: ENOXAPARIN 40 MG/0.4 ML SYG SC SCH (08:10)
[2017-02-13] MEDS: ARTIFICIAL TEARS 15 ML OPH BOTH EYES SCH ×3 (09:00→20:03)
--- NOTE | 2017-02-13 10:04 | RADRPT ---
PROCEDURE: Chest radiograph CLINICAL INDICATION: Intubated. COMPARISON: Radiograph 12/01/2016. TECHNIQUE: Single frontal chest radiograph. FINDINGS: The tracheostomy tube terminates at the level of the clavicular heads in expected position. Hyperinflation. Both costophrenic sulci are obscured, likely due to small pleural effusions. Increased lung markings bilaterally. The cardiomediastinal silhouette is normal. No suspicious bone lesion. IMPRESSION: 1. Chronic obstructive pulmonary disease with underlying lung changes. 2. Small bilateral pleural effusions. RPTAT: [facility] Physician Alexus Date Time Electronically viewed and signed by Physician Alexus on 02/13/2017 10:04 LG/
[2017-02-13 11:12] LABS: AADO2 Arterial 97.2 mmHg (7.0-24.0); Allen Test ACCEPTAB; Arterial Base Excess 5.9 mmol/L (-3.0-3); Arterial COHb 0.3 % (0.0-3.0); Arterial Fraction of Oxyhgb 96.5 % (93.0-99.0); Arterial HCO3 31.5 mmol/L (22.0-26.0); Arterial MetHb 0.2 % (0.0-1.5); Arterial Total Hemglobin 10.5 g/dl (12.0-18.0); MODE VENT - AC
--- NOTE | 2017-02-13 11:13 | PN ---
DATE: 02/13/2017 SUBJECTIVE DATA: The patient is stable overnight. No fevers, chills, nausea, vomiting. OBJECTIVE DATA: VITAL SIGNS: Blood pressure is 120/87, respirations 21, pulse 107, temperature 98.6. HEENT: Head is normocephalic. NECK: Supple. HEART: Regular rate. LUNGS: Diminished breath sounds at the base. ABDOMEN: Soft, nontender to palpation. No rebound or guarding. EXTREMITIES: Negative for clubbing, cyanosis. Trace edema. DERMATOLOGIC: Clean. No rashes. MUSCULOSKELETAL: No joint effusion. NEUROLOGIC: Unchanged exam. MEDICATIONS: Reviewed. LABORATORY AND DIAGNOSTIC DATA: Shows sodium 146, potassium 4.3, chloride 100, bicarbonate 36, BUN 4, creatinine 0.53. ABG shows a pH 7.34 with pCO2 57, white count 9.8, hemoglobin 9.4, platelet count 277,000. ASSESSMENT AND PLAN: 1. Ventilatory dependent respiratory failure. Vent settings reviewed. ABGs reviewed. Continue current medical management. Follow up with Pulmonary. 2. Sepsis secondary to healthcare-associated pneumonia. The patient is clinically improving. Continue current antibiotic regimen. 3. Dysphagia. Patient is tolerating orals. Will continue to encourage p.o. intake. 4. Sinus tachycardia, multifactorial. Continue medical management. 5. Anemia. Monitor hemoglobin and hematocrit levels. 6. Hypertension. Continue current blood pressure regimen. 7. Coronary artery disease. Continue medical management. 8. Leukocytosis, improving. 9. Alkalosis, etiology compensatory. The patient is status post Diamox with some improvement. Continue to monitor. 10. Lower extremity edema. Continue intermittent diuretic therapy as needed. Gastrointestinal and deep venous thrombosis prophylaxis. Continue proton pump inhibitor and 11. Lovenox. 12. Wound. Continue wound care. 13. Status post abdominal abscess. Dictated By: Bora Pereira DO /brando/sarah /Document#: [id number]
--- NOTE | 2017-02-13 11:57 | CONS ---
Date/Time of Note Date/Time of Note DATE: 02/13/17 TIME: 11:55 Consult Date/Type/Reason Admit Date/Time Feb 07, 2017 at 22:40 Initial Consult Date 02/08/17 Type of Consultation: Pulm/CCM Ordering Provider: DAMON BOSWELL DO Subjective Doing better on the vent. Awake and alert. Objective Vital Signs Date Time Temp Pulse Resp B/P Pulse Ox O2 Delivery O2 Flow Rate FiO2 02/13/17 09:15 107 24 100 30 02/13/17 09:00 109/76 Mechanical Ventilator 02/13/17 08:00 98.4 Intake and Output 02/12/17 02/12/17 02/13/17 15:00 23:00 07:00 Intake Total 250 ml 725 ml 200 ml Output Total 1400 ml 1300 ml 475 ml Balance -1150 ml -575 ml -275 ml Exam HEENT: Neck supple; no JVD; no LAD; trach site clear CVS: RRR, S1 and S2 CHEST: Diminished B/L ABD: Soft, NT, + BS EXT: No c/c/e Results/Medications Result Diagram: 02/13/17 0515 02/13/17 0515 Results 24 hrs Laboratory Tests Test 02/13/17 05:00 02/13/17 05:15 02/13/17 10:15 Blood Gas Specimen Source Blood arterial Blood arterial Arterial Blood Date Drawn 02/13/2017 5:25:50 AM 02/13/2017 10:52:07 AM Arterial Blood pH (Temp corrected) 7.346 L 7.412 Arterial Blood pCO2 (Temp correct) 57.7 H 50.6 H Arterial Blood pO2 (Temp corrected) 77.3 L 93.5 Arterial Blood HCO3 30.9 H 31.5 H Arterial Blood Base Excess 4.0 H 5.9 H Arterial Blood Oxygen Saturation 94.0 L 97.0 Elijah Test ACCEPTAB ACCEPTAB Arterial Blood Gas Puncture Site Left Radial Left Radial Arterial Blood Carboxyhemoglobin 0.1 0.3 Arterial Blood Methemoglobin 0.1 0.2 Blood Gas A-a O2 Differential 105.2 H 97.2 H Oxyhemoglobin Percent 93.8 96.5 Total Hemoglobin 11.3 L 10.5 L Blood Gas Temperature 37.0 37.0 Blood Gas Respiration Rate 24.0 24.0 Blood Gas Modality VENT - PC VENT - AC FiO2 35.0 35.0 Blood Gas Low PEEP Setting 5.0 5.0 Blood Gas Inspiratory Pressure 40.0 Blood Gas 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, PUBLICATION SPECIALIST Blood Gas Notified Time 02/13/2017 5:37:14 AM 02/13/2017 11:12:00 AM White Blood Count 9.8 Red Blood Count 3.17 L Hemoglobin 9.4 L Hematocrit 30.6 L Mean Corpuscular Volume 96.5 Mean Corpuscular Hemoglobin 29.7 Mean Corpuscular Hemoglobin Concent 30.7 L Red Cell Distribution Width 17.2 H Platelet Count 277 Mean Platelet Volume 10.0 Neutrophils % 95.3 H Lymphocytes % 3.8 L Monocytes % 0.5 Eosinophils % 0.0 Basophils % 0.0 Nucleated Red Blood Cells % 0.0 Neutrophils # (Manual) 9.3 H Lymphocytes # 0.4 L Monocytes # 0.1 L Eosinophils # 0.0 Basophils # 0.0 Nucleated Red Blood Cells # 0.0 Sodium Level 143 Potassium Level 5.0 Chloride Level 99 Carbon Dioxide Level 33 H Anion Gap 16 Blood Urea Nitrogen 9 Creatinine 0.54 L Glucose Level 198 # Calcium Level 9.0 Phosphorus Level 3.7 Magnesium Level 1.9 Blood Gas Actual Respiration Rate 24 Blood Gas Tidal Volume 500.0 Medications Current Medications Ondansetron HCl (Zofran Inj) 4 mg Q6H PRN IV NAUSEA AND/OR VOMITING; Start at 02:30 Acetaminophen/ Hydrocodone Bitart ([place] (5/325)) 1 tab Q6H PRN PO MODERATE PAIN LEVEL 4-6 Last administered on 02/08/17 10:16; Admin Dose 1 TAB; Start at 02:30 Pantoprazole (Protonix Tab) 40 mg DAILY@06 PO Last administered on 02/13/17 06 :03; Admin Dose 40 MG; Start 02/08/17 at 06:00 Enoxaparin Sodium (Lovenox) 40 mg DAILY SC Last administered on 02/13/17 08:10 ; Admin Dose 40 MG; Start 02/08/17 at 09:00 Acetaminophen (Tylenol Tab) 1,000 mg Q6H PRN PO MODERATE PAIN LEVEL 4-6; Start 02/08/17 at 02:30 Acetaminophen (Tylenol Tab) 650 mg Q6H PRN GTB FEVER GREATER THAN 100.6; Start 02/08/17 at 02:30 Acetaminophen (Tylenol Tab) 650 mg Q6H PRN GTB MILD PAIN LEVEL 1-3; Start 02/08 at 02:30 Ascorbic Acid (Vitamin C) 500 mg DAILY GTB Last administered on 02/13/17 08:08 ; Admin Dose 500 MG; Start 02/08/17 at 09:00 Aspirin (Halfprin) 81 mg DAILY PO Last administered on 02/13/17 08:07; Admin Dose 81 MG; Start 02/08/17 at 09:00 Atorvastatin Calcium (Lipitor) 5 mg QHS GTB Last administered on 02/12/17 20: 30; Admin Dose 5 MG; Start 02/08/17 at 21:00 Bisacodyl (Dulcolax Supp) 10 mg DAILY PRN [place] CONSTIPATION; Start 02/08/17 at 02 :30 Cholestyramine Resin (Questran) 1 pkt BID PO Last administered on 02/12/17 20: 30; Admin Dose 1 PKT; Start 02/08/17 at 09:00 Docusate Sodium (Colace) 200 mg QHS PRN PO CONSTIPATION Last administered on 09:29; Admin Dose 200 MG; Start 02/08/17 at 02:30 Lansoprazole (Prevacid) 30 mg BID GTB Last administered on 02/13/17 08:08; Admin Dose 30 MG; Start 02/08/17 at 09:00 Loratadine (Claritin) 10 mg DAILY GTB Last administered on 02/13/17 08:07; Admin Dose 10 MG; Start 02/08/17 at 09:00 Al Hydrox/Mg Hydrox/Simethicone (Mag-Al Plus) 30 ml DAILY GTB Last administered on 02/13/17 08:08; Admin Dose 30 ML; Start 02/08/17 at 09:00 Metoprolol Tartrate (Lopressor) 25 mg BID GTB Last administered on 02/13/17 08 :08; Admin Dose 25 MG; Start 02/08/17 at 09:00 Mineral Oil (Fleet Mineral Oil Enema) 133 ml DAILY PRN NE RESP THERAPY; Start 02/08/17 at 02:30 Multivitamins Therapeutic (Theragran) 1 tab DAILY GTB Last administered on 02/13 08:08; Admin Dose 1 TAB; Start 02/08/17 at 09:00 Olanzapine (Zyprexa) 5 mg TID GTB Last administered on 02/13/17 08:08; Admin Dose 5 MG; Start 02/08/17 at 09:00 Eye Lubricant (Artificial Tears Oph) 1 drop TID BOTH EYES Last administered on 02/12/17 20:31; Admin Dose 1 DROP; Start 02/08/17 at 09:00 Nystatin 1 applic 1 applic DAILY PRN TOP NEEDED; Start 02/08/17 at 02:30 Meropenem/Sodium Chloride (Merrem 1 Gm/50 ml (Pmx)) 50 ml @ 100 mls/hr Q8 IVPB Last administered on 02/13/17 06:03; Admin Dose 100 MLS/HR; Start 02/08/17 at 06:00 Acetaminophen/ Hydrocodone Bitart ([place] (5/325)) 2 tab Q6 PRN PO SEVERE PAIN LEVEL 7-10 Last administered on 02/13/17 02:37; Admin Dose 2 TAB; Start at 03:51 [facility] This patient galaviz... PRN PRN XX WOUND CARE; Start 02/10/17 at 18:00 Methylprednisolone Sodium Succinate (Solu-Medrol) 30 mg Q12 IV Last administered on 02/13/17 08:08; Admin Dose 30 MG; Start 02/12/17 at 15:00 Assessment/Plan Additional Assessment/Plan IMP: 1. Acute on chronic hypercapnic Resp Failure--due to COPD exacerbation 2. COPD exacerbation 3. Tachycardia 4. Anemia RECS: 1. Vent--> switch to VC rate 16; Vt 500 2. BDs with duonebs 3. Taper CS 4. Abx 5. Titrate FiO2 to SpO2 88-92% 6. Stable for transfer to SNF 35 min cc time EVONNE PICKERING MD Feb 13, 2017 11:57
--- NOTE | 2017-02-13 12:32 | CONS ---
Date/Time of Note Date/Time of Note DATE: 02/13/17 TIME: 12:31 Consult Date/Type/Reason Admit Date/Time Feb 07, 2017 at 22:40 Initial Consult Date 02/08/17 Type of Consultation: CARDIOLOGY Ordering Provider: DAMON BOSWELL DO Subjective CARDIOLOGY FOLLOW UP: d/w staff and rhythm was reviewed. pt remains in NSR/ Sinus tachy. but no Afib he remains on vent. O2 sat has been better though. no reports of any chest pain or pressure or palpitations. OBJECTIVE: HEENT: Head normocephalic, atraumatic. Eyes: Pupils are equal. General Obese gentleman. S/P Trach on vent NECK: Status post tracheostomy, on the vent now. CARDIAC: Tachycardic. grade I systolic murmur LUNGS: aneriorly with no wheezing, no rhonchi. ABDOMEN: Status post previous drainage site. No rebound or guarding. EXTREMITIES: Positive edema in extremities. Diffuse lower extremity edema. NEUROLOGIC: He is comfortably sleeping and opens his eyes. . PSYCHIATRIC: Appears calm. echo 02/10/17: personally reviewed; 1. Normal left ventricular systolic function. Normal left ventricular cavity size. Normal left ventricular wall thickness. Ejection fraction is visually estimated at 60 %. 2. Normal appearance and function of the mitral valve with trace physiologic regurgitation. 3. No significant aortic stenosis or insufficiency. Aortic cusps appear mildly calcified. 4. Normal appearance of the tricuspid valve. Estimated peak PA systolic pressure 59 mmHg. There is mild tricuspid regurgitation. Objective Vital Signs Date Time Temp Pulse Resp B/P Pulse Ox O2 Delivery O2 Flow Rate FiO2 02/13/17 12:00 98.2 100 20 146/83 94 Mechanical Ventilator 02/13/17 11:00 30 Intake and Output 02/12/17 02/12/17 02/13/17 14:59 22:59 06:59 Intake Total 500 ml 675 ml 250 ml Output Total 2000 ml 1300 ml 475 ml Balance -1500 ml -625 ml -225 ml Results/Medications Result Diagram: 02/13/17 0515 02/13/17 0515 Results 24 hrs Laboratory Tests Test 02/13/17 05:00 02/13/17 05:15 02/13/17 10:15 Blood Gas Specimen Source Blood arterial Blood arterial Arterial Blood Date Drawn 02/13/2017 5:25:50 AM 02/13/2017 10:52:07 AM Arterial Blood pH (Temp corrected) 7.346 L 7.412 Arterial Blood pCO2 (Temp correct) 57.7 H 50.6 H Arterial Blood pO2 (Temp corrected) 77.3 L 93.5 Arterial Blood HCO3 30.9 H 31.5 H Arterial Blood Base Excess 4.0 H 5.9 H Arterial Blood Oxygen Saturation 94.0 L 97.0 Elijah Test ACCEPTAB ACCEPTAB Arterial Blood Gas Puncture Site Left Radial Left Radial Arterial Blood Carboxyhemoglobin 0.1 0.3 Arterial Blood Methemoglobin 0.1 0.2 Blood Gas A-a O2 Differential 105.2 H 97.2 H Oxyhemoglobin Percent 93.8 96.5 Total Hemoglobin 11.3 L 10.5 L Blood Gas Temperature 37.0 37.0 Blood Gas Respiration Rate 24.0 24.0 Blood Gas Modality VENT - PC VENT - AC FiO2 35.0 35.0 Blood Gas Low PEEP Setting 5.0 5.0 Blood Gas Inspiratory Pressure 40.0 Blood Gas 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, HR OPERATIONS ADVISOR Blood Gas Notified Time 02/13/2017 5:37:14 AM 02/13/2017 11:12:00 AM White Blood Count 9.8 Red Blood Count 3.17 L Hemoglobin 9.4 L Hematocrit 30.6 L Mean Corpuscular Volume 96.5 Mean Corpuscular Hemoglobin 29.7 Mean Corpuscular Hemoglobin Concent 30.7 L Red Cell Distribution Width 17.2 H Platelet Count 277 Mean Platelet Volume 10.0 Neutrophils % 95.3 H Lymphocytes % 3.8 L Monocytes % 0.5 Eosinophils % 0.0 Basophils % 0.0 Nucleated Red Blood Cells % 0.0 Neutrophils # (Manual) 9.3 H Lymphocytes # 0.4 L Monocytes # 0.1 L Eosinophils # 0.0 Basophils # 0.0 Nucleated Red Blood Cells # 0.0 Sodium Level 143 Potassium Level 5.0 Chloride Level 99 Carbon Dioxide Level 33 H Anion Gap 16 Blood Urea Nitrogen 9 Creatinine 0.54 L Glucose Level 198 # Calcium Level 9.0 Phosphorus Level 3.7 Magnesium Level 1.9 Blood Gas Actual Respiration Rate 24 Blood Gas Tidal Volume 500.0 Medications Current Medications Ondansetron HCl (Zofran Inj) 4 mg Q6H PRN IV NAUSEA AND/OR VOMITING; Start at 02:30 Acetaminophen/ Hydrocodone Bitart ([place] (5/325)) 1 tab Q6H PRN PO MODERATE PAIN LEVEL 4-6 Last administered on 02/08/17 10:16; Admin Dose 1 TAB; Start at 02:30 Pantoprazole (Protonix Tab) 40 mg DAILY@06 PO Last administered on 02/13/17 06 :03; Admin Dose 40 MG; Start 02/08/17 at 06:00 Enoxaparin Sodium (Lovenox) 40 mg DAILY SC Last administered on 02/13/17 08:10 ; Admin Dose 40 MG; Start 02/08/17 at 09:00 Acetaminophen (Tylenol Tab) 1,000 mg Q6H PRN PO MODERATE PAIN LEVEL 4-6; Start 02/08/17 at 02:30 Acetaminophen (Tylenol Tab) 650 mg Q6H PRN GTB FEVER GREATER THAN 100.6; Start 02/08/17 at 02:30 Acetaminophen (Tylenol Tab) 650 mg Q6H PRN GTB MILD PAIN LEVEL 1-3; Start 02/08 at 02:30 Ascorbic Acid (Vitamin C) 500 mg DAILY GTB Last administered on 02/13/17 08:08 ; Admin Dose 500 MG; Start 02/08/17 at 09:00 Aspirin (Halfprin) 81 mg DAILY PO Last administered on 02/13/17 08:07; Admin Dose 81 MG; Start 02/08/17 at 09:00 Atorvastatin Calcium (Lipitor) 5 mg QHS GTB Last administered on 02/12/17 20: 30; Admin Dose 5 MG; Start 02/08/17 at 21:00 Bisacodyl (Dulcolax Supp) 10 mg DAILY PRN [place] CONSTIPATION; Start 02/08/17 at 02 :30 Cholestyramine Resin (Questran) 1 pkt BID PO Last administered on 02/12/17 20: 30; Admin Dose 1 PKT; Start 02/08/17 at 09:00 Docusate Sodium (Colace) 200 mg QHS PRN PO CONSTIPATION Last administered on 09:29; Admin Dose 200 MG; Start 02/08/17 at 02:30 Lansoprazole (Prevacid) 30 mg BID GTB Last administered on 02/13/17 08:08; Admin Dose 30 MG; Start 02/08/17 at 09:00 Loratadine (Claritin) 10 mg DAILY GTB Last administered on 02/13/17 08:07; Admin Dose 10 MG; Start 02/08/17 at 09:00 Al Hydrox/Mg Hydrox/Simethicone (Mag-Al Plus) 30 ml DAILY GTB Last administered on 02/13/17 08:08; Admin Dose 30 ML; Start 02/08/17 at 09:00 Metoprolol Tartrate (Lopressor) 25 mg BID GTB Last administered on 02/13/17 08 :08; Admin Dose 25 MG; Start 02/08/17 at 09:00 Mineral Oil (Fleet Mineral Oil Enema) 133 ml DAILY PRN [place] RESP THERAPY; Start 02/08/17 at 02:30 Multivitamins Therapeutic (Theragran) 1 tab DAILY GTB Last administered on 02/13 08:08; Admin Dose 1 TAB; Start 02/08/17 at 09:00 Olanzapine (Zyprexa) 5 mg TID GTB Last administered on 02/13/17 12:14; Admin Dose 5 MG; Start 02/08/17 at 09:00 Eye Lubricant (Artificial Tears Oph) 1 drop TID BOTH EYES Last administered on 02/13/17 09:00; Admin Dose 1 DROP; Start 02/08/17 at 09:00 Nystatin 1 applic 1 applic DAILY PRN TOP NEEDED; Start 02/08/17 at 02:30 Meropenem/Sodium Chloride (Merrem 1 Gm/50 ml (Pmx)) 50 ml @ 100 mls/hr Q8 IVPB Last administered on 02/13/17 12:14; Admin Dose 100 MLS/HR; Start 02/08/17 at 06:00 Acetaminophen/ Hydrocodone Bitart ([place] (5/325)) 2 tab Q6 PRN PO SEVERE PAIN LEVEL 7-10 Last administered on 02/13/17 02:37; Admin Dose 2 TAB; Start at 03:51 Miscellaneous Information (Pending Santyl Order For Wound Care) This patient galaviz... PRN PRN XX WOUND CARE; Start 02/10/17 at 18:00 Methylprednisolone Sodium Succinate (Solu-Medrol) 30 mg Q12 IV Last administered on 02/13/17 08:08; Admin Dose 30 MG; Start 02/12/17 at 15:00 Assessment/Plan Chief Complaint/Hosp Course 1. Tachycardia, sinus, multifactorial. 2. Hypoxemic hypercapnic respiratory failure, status post tracheostomy, vent dependent. 3. Sepsis and possible pneumonia. 4. Dysphagia. Currently tolerating p.o. medication apparently. 5. Anemia. 6. hx of Hypertension, under good control. 7. Paroxysmal atrial fibrillation. Currently remains in sinus rhythm. 8. Severe chronic obstructive pulmonary disease and emphysematous changes on the CT. 9. Leukocytosis from sepsis. 10. History of abdominal abscess. 11. pulm HTN RECOMMENDATIONS: CONT with vent support. f/u with pulm rec regarding vent setting changes. Nutritional support will be continued. Deep venous thrombosis prophylaxis to be continued. Patient is on low-dose aspirin only, not on anticoagulant due to severe anemia. Beta toby as tolerated will be continued. Continue to monitor on telemetry closely. will correct lytes as needed. abx management as per IM/ pulm team THANK YOU BRENTON RIOS MD [facility] Problems: BRENTON RIOS MD Feb 13, 2017 12:32
--- NOTE | 2017-02-13 15:38 | PN ---
Date/Time of Note Date/Time of Note DATE: 02/13/17 TIME: 15:34 Assessment/Plan Lines/Catheters IV Catheter Type (from [facility]): PICC Line Estrella in Place (from [facility]): No Assessment/Plan Chief Complaint/Hosp Course 1. VDRF with pna: comfortable on vent currently on AC setting attempting to wean as able -pulmonary toilet -abx -continue vent support -per pulm 2. PNA: chronic vent, ? / #5; tolerating PO diet -abx -as above 3. Abdominal fluid collection: s/p drainage and drain placement (removed by patient) no abdominal discomfort -cont abx per sensitivity 4. Sepsis with leukocytosis: 07/22 #2,3, wbc normalized today no fevers, tachycardia; -supportive -as above 5. Dysphagia: oral nutrition, s/p swallow eval -careful monitoring and feeding assist 6. Anemia.:status post blood transfusion, h/h stable -monitor and transfuse prn 7. Hypertension with tachycardia -medical optimization -weight loss encouraged 8. Chronic kidney disease: improving cr -medical management -avoid nephrotoxic meds -renally dose meds Patient seen and examined in collaboration with Dr Boubacar Davis. Thank you. Problems: Subjective 24 Hr Interval Summary Feels well. Very anxious. Continuing on vent weaning as tolerated. No abdominal pain or discomfort. No fevers, chills, sob, congested cough, n/v/d/dysuria/ dysphagia. Exam/Review of Systems Vital Signs Vitals Vital Signs Date Time Temp Pulse Resp B/P Pulse Ox O2 Delivery O2 Flow Rate FiO2 02/13/17 14:00 109 22 126/85 94 Mechanical Ventilator 02/13/17 12:59 30 02/13/17 12:00 98.2 Intake and Output 02/12/17 02/12/17 02/13/17 15:00 23:00 07:00 Intake Total 250 ml 725 ml 200 ml Output Total 1400 ml 1300 ml 475 ml Balance -1150 ml -575 ml -275 ml Exam Free Text/Dictation Constitutional: alert, well developed Psych: nl mood/affect, anxious Head: atraumatic, normocephalic Eyes: nl lids, nl sclera ENMT: mucosa pink and moist, nl nasal mucosa & septum Neck: other (trach) Respiratory: No labored breathing, vent Cardiovascular: edema (min BLE and bilateral flank), regular rate and rhythm Gastrointestinal: distended (min), soft, surgical scars, No tender Genitourinary - Male: No CVA tenderness Musculoskeletal: muscle weakness Extremities: pitting pedal edema (+2 ble) Neurological: nl mental status, nl strength Skin: No rash or lesions Results Result Diagram: 02/13/17 0515 02/13/17 0515 JEANNINE MATAMOROS NP Feb 13, 2017 15:38
--- NOTE | 2017-02-13 16:50 | CONS ---
Date/Time of Note Date/Time of Note DATE: 02/13/17 TIME: 16:49 Assessment/Plan Assessment/Plan Chief Complaint/Hosp Course ID PROGRESS NOTE CURRENT ABX=> Day Merrem #6 24H INTERVAL SUMMARY * No new events since yesterday -- A/A/O -> communicates well by mouthing words , no fever, NAD, tells me he is "better" * ABD drains removed, voids in urinal * MICRO: BCX 02/07 (-) ; (-)MRSA Nares screen PHYSICAL EXAMINATION: GENERAL: VSS, NAD HEENT: Unremarkable, except for bowman NECK: Trach->L secure to Vent CHEST: Rise symmetrical bilaterally, without dyspnea on observation CV: RRR ABDOMEN: Soft, obese EXTREMITIES: Warm, moves extremities ID ASSESSMENT: 56 yo M admit with: 1. Resolving sepsis-> likely due to Aspiration PNA * BCX 02/07 (-) 2. Acute on chronic respiratory failure, possible aspiration event @ [place] 3. Dysphagia, status post G-tube discontinued, patient is tolerating a diet. 4. History of G-tube site cellulitis and intra-abdominal abscess drainage. 5. Obesity. 6. Bipolar disorder. (-) MRSA Nares INVASIVES: PICC, Trach ABX ALLERGY: VANCO CURRENT ABX=>Day #6 Merrem ID PLAN=> Monitor ABX 1. Continue Merrem over the weekend 2. Aspiration precautions Problems: Consultation Date/Type/Reason Admit Date/Time Feb 07, 2017 at 22:40 Initial Consult Date 02/08/17 Type of Consultation: ID Referring Provider: DAMON BOSWELL DO Exam/Review of Systems Vital Signs Vitals Vital Signs Date Time Temp Pulse Resp B/P Pulse Ox O2 Delivery O2 Flow Rate FiO2 02/13/17 14:00 109 22 126/85 94 Mechanical Ventilator 02/13/17 12:59 30 02/13/17 12:00 98.2 Intake and Output 02/12/17 02/12/17 02/13/17 14:59 22:59 06:59 Intake Total 500 ml 675 ml 250 ml Output Total 2000 ml 1300 ml 475 ml Balance -1500 ml -625 ml -225 ml Results Result Diagram: 02/13/17 0515 02/13/17 0515 Results 24 hrs Laboratory Tests Test 02/13/17 05:00 02/13/17 05:15 02/13/17 10:15 Blood Gas Specimen Source Blood arterial Blood arterial Arterial Blood Date Drawn 02/13/2017 5:25:50 AM 02/13/2017 10:52:07 AM Arterial Blood pH (Temp corrected) 7.346 L 7.412 Arterial Blood pCO2 (Temp correct) 57.7 H 50.6 H Arterial Blood pO2 (Temp corrected) 77.3 L 93.5 Arterial Blood HCO3 30.9 H 31.5 H Arterial Blood Base Excess 4.0 H 5.9 H Arterial Blood Oxygen Saturation 94.0 L 97.0 Elijah Test ACCEPTAB ACCEPTAB Arterial Blood Gas Puncture Site Left Radial Left Radial Arterial Blood Carboxyhemoglobin 0.1 0.3 Arterial Blood Methemoglobin 0.1 0.2 Blood Gas A-a O2 Differential 105.2 H 97.2 H Oxyhemoglobin Percent 93.8 96.5 Total Hemoglobin 11.3 L 10.5 L Blood Gas Temperature 37.0 37.0 Blood Gas Respiration Rate 24.0 24.0 Blood Gas Modality VENT - PC VENT - AC FiO2 35.0 35.0 Blood Gas Low PEEP Setting 5.0 5.0 Blood Gas Inspiratory Pressure 40.0 Blood Gas 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, 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 Blood Gas Notified Time 02/13/2017 5:37:14 AM 02/13/2017 11:12:00 AM White Blood Count 9.8 Red Blood Count 3.17 L Hemoglobin 9.4 L Hematocrit 30.6 L Mean Corpuscular Volume 96.5 Mean Corpuscular Hemoglobin 29.7 Mean Corpuscular Hemoglobin Concent 30.7 L Red Cell Distribution Width 17.2 H Platelet Count 277 Mean Platelet Volume 10.0 Neutrophils % 95.3 H Lymphocytes % 3.8 L Monocytes % 0.5 Eosinophils % 0.0 Basophils % 0.0 Nucleated Red Blood Cells % 0.0 Neutrophils # (Manual) 9.3 H Lymphocytes # 0.4 L Monocytes # 0.1 L Eosinophils # 0.0 Basophils # 0.0 Nucleated Red Blood Cells # 0.0 Sodium Level 143 Potassium Level 5.0 Chloride Level 99 Carbon Dioxide Level 33 H Anion Gap 16 Blood Urea Nitrogen 9 Creatinine 0.54 L Glucose Level 198 # Calcium Level 9.0 Phosphorus Level 3.7 Magnesium Level 1.9 Blood Gas Actual Respiration Rate 24 Blood Gas Tidal Volume 500.0 Medications Medications Current Medications Ondansetron HCl (Zofran Inj) 4 mg Q6H PRN IV NAUSEA AND/OR VOMITING; Start at 02:30 Acetaminophen/ Hydrocodone Bitart ([place] (5/325)) 1 tab Q6H PRN PO MODERATE PAIN LEVEL 4-6 Last administered on 02/08/17 10:16; Admin Dose 1 TAB; Start at 02:30 Pantoprazole (Protonix Tab) 40 mg DAILY@06 PO Last administered on 02/13/17 06 :03; Admin Dose 40 MG; Start 02/08/17 at 06:00 Enoxaparin Sodium (Lovenox) 40 mg DAILY SC Last administered on 02/13/17 08:10 ; Admin Dose 40 MG; Start 02/08/17 at 09:00 Acetaminophen (Tylenol Tab) 1,000 mg Q6H PRN PO MODERATE PAIN LEVEL 4-6; Start 02/08/17 at 02:30 Acetaminophen (Tylenol Tab) 650 mg Q6H PRN GTB FEVER GREATER THAN 100.6; Start 02/08/17 at 02:30 Acetaminophen (Tylenol Tab) 650 mg Q6H PRN GTB MILD PAIN LEVEL 1-3; Start 02/08 at 02:30 Ascorbic Acid (Vitamin C) 500 mg DAILY GTB Last administered on 02/13/17 08:08 ; Admin Dose 500 MG; Start 02/08/17 at 09:00 Aspirin (Halfprin) 81 mg DAILY PO Last administered on 02/13/17 08:07; Admin Dose 81 MG; Start 02/08/17 at 09:00 Atorvastatin Calcium (Lipitor) 5 mg QHS GTB Last administered on 02/12/17 20: 30; Admin Dose 5 MG; Start 02/08/17 at 21:00 Bisacodyl (Dulcolax Supp) 10 mg DAILY PRN [place] CONSTIPATION; Start 02/08/17 at 02 :30 Cholestyramine Resin (Questran) 1 pkt BID PO Last administered on 02/12/17 20: 30; Admin Dose 1 PKT; Start 02/08/17 at 09:00 Docusate Sodium (Colace) 200 mg QHS PRN PO CONSTIPATION Last administered on 09:29; Admin Dose 200 MG; Start 02/08/17 at 02:30 Lansoprazole (Prevacid) 30 mg BID GTB Last administered on 02/13/17 08:08; Admin Dose 30 MG; Start 02/08/17 at 09:00 Loratadine (Claritin) 10 mg DAILY GTB Last administered on 02/13/17 08:07; Admin Dose 10 MG; Start 02/08/17 at 09:00 Al Hydrox/Mg Hydrox/Simethicone (Mag-Al Plus) 30 ml DAILY GTB Last administered on 02/13/17 08:08; Admin Dose 30 ML; Start 02/08/17 at 09:00 Metoprolol Tartrate (Lopressor) 25 mg BID GTB Last administered on 02/13/17 08 :08; Admin Dose 25 MG; Start 02/08/17 at 09:00 Mineral Oil (Fleet Mineral Oil Enema) 133 ml DAILY PRN [place] RESP THERAPY; Start 02/08/17 at 02:30 Multivitamins Therapeutic (Theragran) 1 tab DAILY GTB Last administered on 02/13 08:08; Admin Dose 1 TAB; Start 02/08/17 at 09:00 Olanzapine (Zyprexa) 5 mg TID GTB Last administered on 02/13/17 12:14; Admin Dose 5 MG; Start 02/08/17 at 09:00 Eye Lubricant (Artificial Tears Oph) 1 drop TID BOTH EYES Last administered on 02/13/17 13:00; Admin Dose 1 DROP; Start 02/08/17 at 09:00 Nystatin 1 applic 1 applic DAILY PRN TOP NEEDED; Start 02/08/17 at 02:30 Meropenem/Sodium Chloride (Merrem 1 Gm/50 ml (Pmx)) 50 ml @ 100 mls/hr Q8 IVPB Last administered on 02/13/17 12:14; Admin Dose 100 MLS/HR; Start 02/08/17 at 06:00 Acetaminophen/ Hydrocodone Bitart ([place] (5/325)) 2 tab Q6 PRN PO SEVERE PAIN LEVEL 7-10 Last administered on 02/13/17 13:18; Admin Dose 2 TAB; Start at 03:51 Miscellaneous Information [facility] This patient galaviz... PRN PRN XX WOUND CARE; Start 02/10/17 at 18:00 Methylprednisolone Sodium Succinate (Solu-Medrol) 30 mg Q12 IV Last administered on 02/13/17 08:08; Admin Dose 30 MG; Start 02/12/17 at 15:00 RAUL GOMEZ NP Feb 13, 2017 16:50
[2017-02-13] MEDS: ATORVASTATIN 10 MG TAB GTB SCH (20:02)
[2017-02-13] MEDS: DOCUSATE SODIUM 100 MG CAP PO PRN (20:03)
[2017-02-14] VITALS (33 sets, daily range): BP systolic 105–139; BP diastolic 72–99; PULSE 86–118; RESP 14–27
[2017-02-14] MEDS: ALBUTEROL 18 GM INHALER INH SCH ×5 (00:28→17:18)
[2017-02-14] MEDS: HYDROCODONE/APAP (5/325) TAB PO PRN (02:12)
[2017-02-14 05:49] LABS: ABNORMAL IP MESSAGE 1; BASOPHILS % 0.1 % (0.0-2.0); HEMATOCRIT 32.5 % (42.0-52.0); HEMOGLOBIN 9.6 g/dl (14.0-18.0); LYMPHOCYTES # 0.4 10^3/ul (0.8-2.9); LYMPHOCYTES % 2.7 % (15.0-51.0); MEAN CORPUSCULAR HEMOGLOBIN 28.6 pg (29.0-33.0); MEAN CORPUSCULAR HGB CONC 29.5 g/dl (32.0-37.0); MEAN CORPUSCULAR VOLUME 96.7 fl (82.0-101.0); MEAN PLATELET VOLUME 10.2 fl (7.4-10.4); MONOCYTE # 0.4 10^3/ul (0.3-0.9); MONOCYTES % 2.1 % (0.0-11.0); NEUTROPHILS % 94.5 % (39.0-77.0); PLATELET COUNT 332 10^3/UL (140-415); POSITIVE DIFF @See below; RED BLOOD COUNT 3.36 10^6/ul (4.70-6.10); RED CELL DISTRIBUTION WIDTH 17.4 % (11.5-14.5); WHITE BLOOD COUNT 16.6 10^3/ul (4.8-10.8)
[2017-02-14 06:24] LABS: CALCIUM 9.2 mg/dl (8.4-10.2); CREATININE 0.51 mg/dl (0.61-1.24)
[2017-02-14] MEDS: PANTOPRAZOLE (EC) 40 MG TAB PO SCH (06:28)
[2017-02-14] MEDS: MEROPENEM 1 GM/50ML(PMX) 50 ML IVPB SCH ×2 (06:28→14:00)
--- NOTE | 2017-02-14 08:19 | PN ---
DATE: 02/14/2017 SUBJECTIVE DATA: The patient is stable. No events overnight. No fevers, chills, nausea, vomiting. The patient currently has been switched over to volume control on vent settings. OBJECTIVE DATA: VITAL SIGNS: Blood pressure 114/72, respirations 16, pulse 100, temperature 97.6. HEENT: Head is normocephalic. NECK: Supple. HEART: Regular rate. LUNGS: Diminished breath sounds at the base. ABDOMEN: Soft, nontender to palpation. No rebound or guarding. EXTREMITIES: Negative for clubbing, cyanosis. No edema. DERMATOLOGIC: Clean. No rashes. MUSCULOSKELETAL: No joint effusion. NEUROLOGIC: Unchanged exam. MEDICATIONS: The patient's medications were reviewed. LABORATORY AND DIAGNOSTIC DATA: White count 16.6, hemoglobin 9.6, platelet count 332. Sodium 145, potassium 5.0, BUN 11, creatinine 0.51. The patient's chest x-ray on 02/13/2017 was reviewed. ASSESSMENT AND PLAN: 1. Ventilatory-dependent respiratory failure. Vent settings and ABGs reviewed. Continue current medical management. 2. Sepsis secondary to healthcare-associated pneumonia. The patient is clinically improving. Continue with current antibiotic regimen. 3. Dysphagia, tolerating p.o. 4. Hypernatremia. We will encourage free water intake. 5. Anemia. Monitor hemoglobin and hematocrit levels. 6. Hypertension. Continue blood pressure regimen. 7. Coronary artery disease. Continue medical management. 8. Leukocytosis, likely secondary to stress and steroids. Continue to monitor. 9. Lower extremity edema. Continue intermittent diuretic therapy. 10. Gastrointestinal and deep venous thrombosis prophylaxis. Continue PPI and Lovenox. 11. Wound. Continue local wound care. 12. Status post abdominal abscess. Dictated By: Bora Pereira DO /brando/ivelisse /Document#: [id number]
[2017-02-14] MEDS: ASPIRIN (EC) 81 MG TAB PO SCH (08:26)
[2017-02-14] MEDS: MULTIVITAMINS THERAPEUTIC TAB GTB SCH (08:26)
[2017-02-14] MEDS: METOPROLOL 25 MG TAB GTB SCH ×2 (08:26→20:02)
[2017-02-14] MEDS: AL HYDROX/MG HYDROX/SIMETH 30 ML CUP GTB SCH (08:26)
[2017-02-14] MEDS: ASCORBIC ACID 500 MG TAB GTB SCH (08:26)
[2017-02-14] MEDS: LORATADINE 10 MG TAB GTB SCH (08:26)
[2017-02-14] MEDS: LANSOPRAZOLE 30 MG CAP GTB SCH (08:26)
[2017-02-14] MEDS: CHOLESTYRAMINE 4 GM PACKET PO SCH (08:27)
[2017-02-14] MEDS: OLANZAPINE 5 MG TAB GTB SCH ×2 (08:27→13:00)
[2017-02-14] MEDS: METHYLPREDNISOLONE 40 MG INJ IV SCH (08:27)
[2017-02-14] MEDS: ARTIFICIAL TEARS 15 ML OPH BOTH EYES SCH ×2 (08:30→13:00)
[2017-02-14] MEDS: ENOXAPARIN 40 MG/0.4 ML SYG SC SCH (08:30)
[2017-02-14] MEDS: IPRATROPIUM (HFA) 12.9 GM INHALER INH SCH ×4 (09:18→19:12)
--- NOTE | 2017-02-14 09:26 | PN ---
Date/Time of Note Date/Time of Note DATE: 02/14/17 TIME: 09:22 Assessment/Plan Lines/Catheters IV Catheter Type (from [facility]): PICC Line Estrella in Place (from [facility]): No Assessment/Plan Chief Complaint/Hosp Course 1. VDRF with pna: comfortable on vent currently on pressure control -pulmonary toilet -abx -continue vent support -per pulm 2. PNA: chronic vent, ? / #5; tolerating PO diet -abx -as above 3. Abdominal fluid collection: s/p drainage and drain placement (removed by patient) no abdominal discomfort -cont abx per sensitivity 4. Sepsis with leukocytosis: 07/22 #2,3, wbc normalized today no fevers, intermittent tachycardia; wbc up today -supportive -as above 5. Dysphagia: oral nutrition, s/p swallow eval -careful monitoring and feeding assist 6. Anemia.:status post blood transfusion, h/h stable -monitor and transfuse prn 7. Hypertension with intermittent tachycardia -medical optimization -weight loss encouraged 8. Chronic kidney disease: improving cr -medical management -avoid nephrotoxic meds -renally dose meds 9. Anxiety -medical management Patient seen and examined in collaboration with Dr Boubacar Davis. Thank you. Problems: Subjective 24 Hr Interval Summary Min anxious. Now on pressure control. Leukocytosis but no fevers, chills. No c/ o pain, sob, congested cough, abdominal pain or discomfort, n/v/d/dysuria, change in tele rhythm. Exam/Review of Systems Vital Signs Vitals Vital Signs Date Time Temp Pulse Resp B/P Pulse Ox O2 Delivery O2 Flow Rate FiO2 02/14/17 06:00 100 16 114/72 98 Room Air 02/14/17 05:16 35 02/14/17 04:00 97.6 Intake and Output 02/13/17 02/13/17 02/14/17 15:00 23:00 07:00 Intake Total 480 ml 480 ml 480 ml Output Total 1925 ml 1200 ml 450 ml Balance -1445 ml -720 ml 30 ml Exam Free Text/Dictation Constitutional: alert, well developed Psych: nl mood/affect, anxious Head: atraumatic, normocephalic Eyes: nl lids, nl sclera ENMT: mucosa pink and moist, nl nasal mucosa & septum Neck: other (trach) Respiratory: No labored breathing, vent-pressure control Cardiovascular: edema (min BLE and bilateral flank), regular rate and rhythm Gastrointestinal: distended (min), soft, surgical scars, No tender Genitourinary - Male: No CVA tenderness Musculoskeletal: muscle weakness Extremities: pitting pedal edema (+1 ble) Neurological: nl mental status, nl strength Skin: No rash or lesions Results Result Diagram: 02/14/17 0358 02/14/17 0400 JEANNINE MATAMOROS NP Feb 14, 2017 09:26
--- NOTE | 2017-02-14 10:23 | CONS ---
Date/Time of Note Date/Time of Note DATE: 02/14/17 TIME: 10:21 Consult Date/Type/Reason Admit Date/Time Feb 07, 2017 at 22:40 Initial Consult Date 02/08/17 Type of Consultation: Pulm Ordering Provider: DAMON BOSWELL DO Subjective Remains stable on volume control ventilation. Awake alert oriented. Objective Vital Signs Date Time Temp Pulse Resp B/P Pulse Ox O2 Delivery O2 Flow Rate FiO2 02/14/17 08:00 86 02/14/17 06:00 16 114/72 98 Room Air 02/14/17 05:16 35 02/14/17 04:00 97.6 Intake and Output 02/13/17 02/13/17 02/14/17 15:00 23:00 07:00 Intake Total 480 ml 480 ml 480 ml Output Total 1925 ml 1200 ml 450 ml Balance -1445 ml -720 ml 30 ml Exam PHYSICAL EXAMINATION: GENERAL APPEARANCE: On examination, anxious gentleman, well nourished, well developed. VITAL SIGNS: NECK: Trach site clean, intact. CARDIAC: S1, S2. No added sounds or murmurs. CHEST: Diminished air entry bilaterally. ABDOMEN: Soft, nontender. No guarding or rebound. EXTREMITIES: No cyanosis, clubbing or edema. NEUROLOGIC: Generalized weakness. Results/Medications Result Diagram: 02/14/17 0358 02/14/17 0400 Results 24 hrs Laboratory Tests Test 02/14/17 03:58 02/14/17 04:00 White Blood Count 16.6 #H Red Blood Count 3.36 L Hemoglobin 9.6 L Hematocrit 32.5 L Mean Corpuscular Volume 96.7 Mean Corpuscular Hemoglobin 28.6 L Mean Corpuscular Hemoglobin Concent 29.5 L Red Cell Distribution Width 17.4 H Platelet Count 332 Mean Platelet Volume 10.2 Neutrophils % 94.5 H Lymphocytes % 2.7 L Monocytes % 2.1 Eosinophils % 0.0 Basophils % 0.1 Nucleated Red Blood Cells % 0.0 Neutrophils # (Manual) 15.7 H Lymphocytes # 0.4 L Monocytes # 0.4 Eosinophils # 0.0 Basophils # 0.0 Nucleated Red Blood Cells # 0.0 Sodium Level 145 H Potassium Level 5.0 Chloride Level 99 Carbon Dioxide Level 36 H Anion Gap 15 Blood Urea Nitrogen 11 Creatinine 0.51 L Glucose Level 160 Calcium Level 9.2 Medications Current Medications Ondansetron HCl (Zofran Inj) 4 mg Q6H PRN IV NAUSEA AND/OR VOMITING; Start at 02:30 Acetaminophen/ Hydrocodone Bitart ([place] (5/325)) 1 tab Q6H PRN PO MODERATE PAIN LEVEL 4-6 Last administered on 02/08/17 10:16; Admin Dose 1 TAB; Start at 02:30 Pantoprazole (Protonix Tab) 40 mg DAILY@06 PO Last administered on 02/14/17 06 :28; Admin Dose 40 MG; Start 02/08/17 at 06:00 Enoxaparin Sodium (Lovenox) 40 mg DAILY SC Last administered on 02/14/17 08:30 ; Admin Dose 40 MG; Start 02/08/17 at 09:00 Acetaminophen (Tylenol Tab) 1,000 mg Q6H PRN PO MODERATE PAIN LEVEL 4-6; Start 02/08/17 at 02:30 Acetaminophen (Tylenol Tab) 650 mg Q6H PRN GTB FEVER GREATER THAN 100.6; Start 02/08/17 at 02:30 Acetaminophen (Tylenol Tab) 650 mg Q6H PRN GTB MILD PAIN LEVEL 1-3; Start 02/08 at 02:30 Ascorbic Acid (Vitamin C) 500 mg DAILY GTB Last administered on 02/14/17 08:26 ; Admin Dose 500 MG; Start 02/08/17 at 09:00 Aspirin (Halfprin) 81 mg DAILY PO Last administered on 02/14/17 08:26; Admin Dose 81 MG; Start 02/08/17 at 09:00 Atorvastatin Calcium (Lipitor) 5 mg QHS GTB Last administered on 02/13/17 20: 02; Admin Dose 5 MG; Start 02/08/17 at 21:00 Bisacodyl (Dulcolax Supp) 10 mg DAILY PRN [place] CONSTIPATION; Start 02/08/17 at 02 :30 Cholestyramine Resin (Questran) 1 pkt BID PO Last administered on 02/14/17 08: 27; Admin Dose 1 PKT; Start 02/08/17 at 09:00 Docusate Sodium (Colace) 200 mg QHS PRN PO CONSTIPATION Last administered on 20:03; Admin Dose 200 MG; Start 02/08/17 at 02:30 Lansoprazole (Prevacid) 30 mg BID GTB Last administered on 02/14/17 08:26; Admin Dose 30 MG; Start 02/08/17 at 09:00 Loratadine (Claritin) 10 mg DAILY GTB Last administered on 02/14/17 08:26; Admin Dose 10 MG; Start 02/08/17 at 09:00 Al Hydrox/Mg Hydrox/Simethicone (Mag-Al Plus) 30 ml DAILY GTB Last administered on 02/14/17 08:26; Admin Dose 30 ML; Start 02/08/17 at 09:00 Metoprolol Tartrate (Lopressor) 25 mg BID GTB Last administered on 02/14/17 08 :26; Admin Dose 25 MG; Start 02/08/17 at 09:00 Mineral Oil (Fleet Mineral Oil Enema) 133 ml DAILY PRN [place] RESP THERAPY; Start 02/08/17 at 02:30 Multivitamins Therapeutic (Theragran) 1 tab DAILY GTB Last administered on 02/14 08:26; Admin Dose 1 TAB; Start 02/08/17 at 09:00 Olanzapine (Zyprexa) 5 mg TID GTB Last administered on 02/14/17 08:27; Admin Dose 5 MG; Start 02/08/17 at 09:00 Eye Lubricant (Artificial Tears Oph) 1 drop TID BOTH EYES Last administered on 02/14/17 08:30; Admin Dose 1 DROP; Start 02/08/17 at 09:00 Nystatin 1 applic 1 applic DAILY PRN TOP NEEDED; Start 02/08/17 at 02:30 Meropenem/Sodium Chloride (Merrem 1 Gm/50 ml (Pmx)) 50 ml @ 100 mls/hr Q8 IVPB Last administered on 02/14/17 06:28; Admin Dose 100 MLS/HR; Start 02/08/17 at 06:00 Acetaminophen/ Hydrocodone Bitart ([place] (5/325)) 2 tab Q6 PRN PO SEVERE PAIN LEVEL 7-10 Last administered on 02/14/17 02:12; Admin Dose 2 TAB; Start at 03:51 Miscellaneous Information (Pending Santyl Order For Wound Care) This patient galaviz... PRN PRN XX WOUND CARE; Start 02/10/17 at 18:00 Methylprednisolone Sodium Succinate (Solu-Medrol) 30 mg Q12 IV Last administered on 02/14/17t 08:27; Admin Dose 30 MG; Start 02/12/17 at 15:00 Assessment/Plan Chief Complaint/Hosp Course Additional Assessment/Plan IMP: 1. Acute on chronic hypercapnic Resp Failure--due to COPD exacerbation 2. COPD exacerbation 3. Tachycardia 4. Anemia RECS: 1. Vent--> continue vc ventilation. 2. BDs with duonebs 3. Taper CS 4. Abx 5. Titrate FiO2 to SpO2 88-92% 6. Stable for transfer to SNF 35 min cc time Problems: DEM[facility] BROWN [facility] Feb 14, 2017 10:23
--- NOTE | 2017-02-14 16:39 | CONS ---
Date/Time of Note Date/Time of Note DATE: 02/14/17 TIME: 16:38 Consult Date/Type/Reason Admit Date/Time Feb 07, 2017 at 22:40 Initial Consult Date 02/08/17 Type of Consultation: CARDIOLOGY Ordering Provider: DAMON BOSWELL DO Subjective CARDIOLOGY FOLLOW UP: d/w staff and rhythm was reviewed. pt remains in NSR/ Sinus tachy. no Afib is reported. he remains on vent. no reports of any chest pain or pressure or palpitations. OBJECTIVE: HEENT: Head normocephalic, atraumatic. Eyes: Pupils are equal. General Obese gentleman. S/P Trach on vent NECK: Status post tracheostomy, on the vent now. CARDIAC: Tachycardic. grade I systolic murmur LUNGS: aneriorly with no wheezing, no rhonchi. ABDOMEN: Status post previous drainage site. No rebound or guarding. EXTREMITIES: Positive edema in extremities. Diffuse lower extremity edema. NEUROLOGIC: He is comfortably sleeping and opens his eyes. . PSYCHIATRIC: Appears calm. echo 02/10/17: personally reviewed; 1. Normal left ventricular systolic function. Normal left ventricular cavity size. Normal left ventricular wall thickness. Ejection fraction is visually estimated at 60 %. 2. Normal appearance and function of the mitral valve with trace physiologic regurgitation. 3. No significant aortic stenosis or insufficiency. Aortic cusps appear mildly calcified. 4. Normal appearance of the tricuspid valve. Estimated peak PA systolic pressure 59 mmHg. There is mild tricuspid regurgitation. Objective Vital Signs Date Time Temp Pulse Resp B/P Pulse Ox O2 Delivery O2 Flow Rate FiO2 02/14/17 16:00 102 02/14/17 14:00 16 124/95 100 Mechanical Ventilator 02/14/17 13:10 35 02/14/17 08:00 98.5 Intake and Output 02/13/17 02/13/17 02/14/17 15:00 23:00 07:00 Intake Total 480 ml 480 ml 480 ml Output Total 1925 ml 1200 ml 450 ml Balance -1445 ml -720 ml 30 ml Results/Medications Result Diagram: 02/14/17 0358 02/14/17 0400 Results 24 hrs Laboratory Tests Test 02/14/17 03:58 02/14/17 04:00 White Blood Count 16.6 #H Red Blood Count 3.36 L Hemoglobin 9.6 L Hematocrit 32.5 L Mean Corpuscular Volume 96.7 Mean Corpuscular Hemoglobin 28.6 L Mean Corpuscular Hemoglobin Concent 29.5 L Red Cell Distribution Width 17.4 H Platelet Count 332 Mean Platelet Volume 10.2 Neutrophils % 94.5 H Lymphocytes % 2.7 L Monocytes % 2.1 Eosinophils % 0.0 Basophils % 0.1 Nucleated Red Blood Cells % 0.0 Neutrophils # (Manual) 15.7 H Lymphocytes # 0.4 L Monocytes # 0.4 Eosinophils # 0.0 Basophils # 0.0 Nucleated Red Blood Cells # 0.0 Sodium Level 145 H Potassium Level 5.0 Chloride Level 99 Carbon Dioxide Level 36 H Anion Gap 15 Blood Urea Nitrogen 11 Creatinine 0.51 L Glucose Level 160 Calcium Level 9.2 Medications Current Medications Ondansetron HCl (Zofran Inj) 4 mg Q6H PRN IV NAUSEA AND/OR VOMITING; Start at 02:30 Acetaminophen/ Hydrocodone Bitart ([place] (5/325)) 1 tab Q6H PRN PO MODERATE PAIN LEVEL 4-6 Last administered on 02/08/17 10:16; Admin Dose 1 TAB; Start at 02:30 Pantoprazole (Protonix Tab) 40 mg DAILY@06 PO Last administered on 02/14/17 06 :28; Admin Dose 40 MG; Start 02/08/17 at 06:00 Enoxaparin Sodium (Lovenox) 40 mg DAILY SC Last administered on 02/14/17 08:30 ; Admin Dose 40 MG; Start 02/08/17 at 09:00 Acetaminophen (Tylenol Tab) 1,000 mg Q6H PRN PO MODERATE PAIN LEVEL 4-6; Start 02/08/17 at 02:30 Acetaminophen (Tylenol Tab) 650 mg Q6H PRN GTB FEVER GREATER THAN 100.6; Start 02/08/17 at 02:30 Acetaminophen (Tylenol Tab) 650 mg Q6H PRN GTB MILD PAIN LEVEL 1-3; Start 02/08 at 02:30 Ascorbic Acid (Vitamin C) 500 mg DAILY GTB Last administered on 02/14/17 08:26 ; Admin Dose 500 MG; Start 02/08/17 at 09:00 Aspirin (Halfprin) 81 mg DAILY PO Last administered on 02/14/17 08:26; Admin Dose 81 MG; Start 02/08/17 at 09:00 Atorvastatin Calcium (Lipitor) 5 mg QHS GTB Last administered on 02/13/17 20: 02; Admin Dose 5 MG; Start 02/08/17 at 21:00 Bisacodyl (Dulcolax Supp) 10 mg DAILY PRN [place] CONSTIPATION; Start 02/08/17 at 02 :30 Cholestyramine Resin (Questran) 1 pkt BID PO Last administered on 02/14/17 08: 27; Admin Dose 1 PKT; Start 02/08/17 at 09:00 Docusate Sodium (Colace) 200 mg QHS PRN PO CONSTIPATION Last administered on 20:03; Admin Dose 200 MG; Start 02/08/17 at 02:30 Lansoprazole (Prevacid) 30 mg BID GTB Last administered on 02/14/17 08:26; Admin Dose 30 MG; Start 02/08/17 at 09:00 Loratadine (Claritin) 10 mg DAILY GTB Last administered on 02/14/17 08:26; Admin Dose 10 MG; Start 02/08/17 at 09:00 Al Hydrox/Mg Hydrox/Simethicone (Mag-Al Plus) 30 ml DAILY GTB Last administered on 02/14/17 08:26; Admin Dose 30 ML; Start 02/08/17 at 09:00 Metoprolol Tartrate (Lopressor) 25 mg BID GTB Last administered on 02/14/17 08 :26; Admin Dose 25 MG; Start 02/08/17 at 09:00 Mineral Oil (Fleet Mineral Oil Enema) 133 ml DAILY PRN [place] RESP THERAPY; Start 02/08/17 at 02:30 Multivitamins Therapeutic (Theragran) 1 tab DAILY GTB Last administered on 02/14 08:26; Admin Dose 1 TAB; Start 02/08/17 at 09:00 Olanzapine (Zyprexa) 5 mg TID GTB Last administered on 02/14/17 13:00; Admin Dose 5 MG; Start 02/08/17 at 09:00 Eye Lubricant (Artificial Tears Oph) 1 drop TID BOTH EYES Last administered on 02/14/17 13:00; Admin Dose 1 DROP; Start 02/08/17 at 09:00 Nystatin 1 applic 1 applic DAILY PRN TOP NEEDED; Start 02/08/17 at 02:30 Meropenem/Sodium Chloride (Merrem 1 Gm/50 ml (Pmx)) 50 ml @ 100 mls/hr Q8 IVPB Last administered on 02/14/17 14:00; Admin Dose 100 MLS/HR; Start 02/08/17 at 06:00 Acetaminophen/ Hydrocodone Bitart ([place] (5/325)) 2 tab Q6 PRN PO SEVERE PAIN LEVEL 7-10 Last administered on 02/14/17 02:12; Admin Dose 2 TAB; Start at 03:51 Miscellaneous Information (Pending Santyl Order For Wound Care) This patient galaviz... PRN PRN XX WOUND CARE; Start 02/10/17 at 18:00 Methylprednisolone Sodium Succinate (Solu-Medrol) 30 mg Q12 IV Last administered on 02/14/17 08:27; Admin Dose 30 MG; Start 02/12/17 at 15:00 Assessment/Plan Chief Complaint/Hosp Course 1. Tachycardia, sinus, multifactorial. 2. Hypoxemic hypercapnic respiratory failure, status post tracheostomy, vent dependent. 3. Sepsis and possible pneumonia. 4. Dysphagia. Currently tolerating p.o. now. 5. Anemia. 6. hx of Hypertension, under good control. 7. Paroxysmal atrial fibrillation. Currently remains in sinus rhythm. 8. Severe chronic obstructive pulmonary disease and emphysematous changes on the CT. 9. Leukocytosis from sepsis. 10. History of abdominal abscess. 11. pulm HTN RECOMMENDATIONS: CONT with vent support. f/u with pulm rec regarding vent setting changes. Nutritional support will be continued. Deep venous thrombosis prophylaxis to be continued. Patient is on low-dose aspirin only, not on anticoagulant due to severe anemia. Beta toby as tolerated will be continued. Continue to monitor on telemetry closely. will correct lytes as needed. abx management as per IM/ pulm team THANK YOU BRENTON RIOS MD [facility] Problems: BRENTON RIOS MD Feb 14, 2017 16:39
--- NOTE | 2017-02-14 20:40 | PN ---
DATE: 02/14/2017 SUBJECTIVE DATA: No events overnight. Patient is alert, denies pain, looks comfortable. No fevers. VITAL SIGNS: Temperature 98.5, pulse 96, respirations 16, blood pressure 128/84, saturation 99 on vent. LABORATORY AND DIAGNOSTIC DATA: WBC 16.6, H and H 9.6 and 32.5, platelets 332, neutrophils 94.5. BUN 11, creatinine 0.51. MICROBIOLOGY: All cultures have been negative. DIAGNOSTICS: Chest x-ray from yesterday revealed chronic obstructive pulmonary disease, with small bilateral pleural effusions. INDWELLING: Patient has tracheostomy and PICC line. ANTIMICROBIALS: Patient is on meropenem. Of note, he is also getting IV steroids. OBJECTIVE DATA: GENERAL: This is obese, well developed, middle-aged, white man, who is awake, in no distress. HEENT: Head atraumatic, normocephalic. Sclerae anicteric. Buccal mucosa dry. NECK: Supple. Tracheostomy present. CHEST: Rise symmetrical. Breath sounds diminished at the bases. HEART: S1, S2. ABDOMEN: Soft, distended. Bowel sounds present. EXTREMITIES: Without cyanosis. ASSESSMENT: 1. Status post sepsis. 2. Status post [id number] respiratory failure secondary to chronic obstructive pulmonary disease exacerbation. 3. Dysphagia. 4. History of intra-abdominal abscess drainage. 5. Bipolar disorder. PLAN: Patient remains hemodynamically stable. He is on steroids that could account for increased leukocytosis. He is afebrile, cultures have been negative. We are going to discontinue antibiotics and observe him. Follow Pulmonary recommendations. Monitor white blood cell count. Repeat cultures p.r.n. Dictated By: Candida Dial NP /brando/mayo /Document#: [id number] MAGUI
== END 2017-02-14 20:35 | DRG 870 ==
LOC: E/R 19:47 → ICU 22:40 → TEL 02-10 17:31 → ICU 02-10 21:24
PROVIDERS: ADMIT Internal Medicine; ATTEND Internal Medicine
PROC: 5A1955Z Respiratory Ventilation, Greater than 96 Consecutive Hours (ICD-10-PCS; principal; 2017-02-07)
DX: A41.9 Sepsis, unspecified organism (principal); J96.21 Acute and chronic respiratory failure with hypoxia; J18.9 Pneumonia, unspecified organism; Z99.11 Dependence on respirator [ventilator] status; J44.0 Chronic obstructive pulmonary disease with (acute) lower respiratory infection; J44.1 Chronic obstructive pulmonary disease with (acute) exacerbation; Z93.0 Tracheostomy status; R13.10 Dysphagia, unspecified; J96.22 Acute and chronic respiratory failure with hypercapnia; I48.0 Paroxysmal atrial fibrillation; I27.2 Other secondary pulmonary hypertension; D63.8 Anemia in other chronic diseases classified elsewhere; I12.9 Hypertensive chronic kidney disease with stage 1 through stage 4 chronic kidney disease, or unspecified chronic kidney disease; N18.9 Chronic kidney disease, unspecified; F31.9 Bipolar disorder, unspecified; F41.9 Anxiety disorder, unspecified; I25.10 Atherosclerotic heart disease of native coronary artery without angina pectoris; K21.9 Gastro-esophageal reflux disease without esophagitis; F29 Unspecified psychosis not due to a substance or known physiological condition; R45.1 Restlessness and agitation; R60.0 Localized edema; Z93.1 Gastrostomy status; E66.9 Obesity, unspecified; Z68.29 Body mass index [BMI] 29.0-29.9, adult; Z79.02 Long term (current) use of antithrombotics/antiplatelets; Z79.82 Long term (current) use of aspirin; Z87.891 Personal history of nicotine dependence
CPT/HCPCS: 36600; 71010; 71275; 74177; 80048; 80053; 82803; 82962; 83605; 83735; 84100; 84484; 85025; 85610; 85730; 87040; 87081; 92610; 93005; 93306; 94002; 94003; 94640; 94664; 96365; 96366; 96368; 96372; 96375; 96376; J1120; J0692; J1650; J2185; J2270; J2405; J2920; J7030; Q9967

== ENCOUNTER 2017-08-19 09:38 | Inpatient (IN) | END 2017-08-30 00:22 | DRG 870 ==

== ENCOUNTER 2018-09-23 21:17 | Inpatient (IN) | payer MEDICARE, OTHER ==
[~2018-09-23] VITALS: Ht 180.3 cm; Wt 102.2 kg
[~2018-09-23 21:17] MED LIST changes: -ACET-141 GTB; -ACET-2047 GTB; +ACET-2047 PO; -ACET325T45 GTB; +ALBU2.5V3 NEB; -AMIN887L6 GTB; +AMIT25TA9 PO; -ASCO500C7 GTB; +ASCO500C7 PO; -ASPI-664 GTB; +ASPI81TA52 PO; -ATOR10TA65 GTB; +ATOR10TA65 PO; +CHLO473M4 MM; +CHOL378P3 PO; +CLON-429 PO; +CRAN3875 PO; -DOCU-144 GTB; -ENOX40DI2 SC; -FENT1PAT7 TD; -FURO-110 GTB; +HYDR-4011 PO; -HYDR-906 GTB; -LANS30CA GTB; -LORA-441 GTB; -LORA10TA3 GTB; +LORA10TA3 PO; -MAG360OR42 GTB; +MAGN400O19 PO; -MAGN400O4 GTB; +MAGN400T28 PO; -METO25TA4 GTB; +METO25TA4 PO; -MULTI GTB; +MULTI PO; -NA P135E RC; -OLAN5TAB5 GTB; +OMEP20CA16 PO; +POLY15DR25 BOTH EYES; -POLY15DR25 OP; -PRED20TA GTB; +RANI150T5 PO; -SPIR25TA G-TUBE; -VLP250480 GTB
[2018-09-23] MEDS ORDERED: LEVOFLOXACIN 750MG/D5W (PMX) 150 ML IVPB STA (22:51)
[2018-09-23] MEDS ORDERED: SOD CHLORIDE 0.9% 500 ML IV STA (22:51)
[2018-09-23] MEDS ORDERED: ONDANSETRON 4 MG INJ IV PRN (23:30)
[2018-09-23] MEDS ORDERED: ACETAMINOPHEN 325 MG TAB PO PRN (23:30)
--- NOTE | 2018-09-23 23:34 | ERD ---
ER Documentation Chief Complaint Chief Complaint STERNAL CHEST PAIN, 8/10 X TODAY HPI 58 year old male with a history of chronic respiratory failure, tracheostomy, ventilator dependent, bipolar disorder, COPD, hypertension, atrial fibrillation, heart failure, and diabetes [facility] with chest pain and shortness of breath. Chest pain started a few hours ago, 8 out of 10, substernal, nonradiating, without alleviating or exacerbating factors. He states the pain is intermittent. He also complains of increased shortness of breath from baseline. No fevers or chills. No vomiting or diarrhea. ROS All systems reviewed and are negative except as per history of present illness. Medications Home Meds Reported Medications Ascorbic Acid* (Vitamin C*) 500 Mg Capsule.sa, 500 MG PO DAILY, CAP 08/19/17 Cran/Vitc/Mannose/Inulin/Brom (Uti-Stat Liquid) 3,875 Mg/30 Ml Liquid, 3875 MG PO DAILY 08/19/17 Acetaminophen* (Acetaminophen*) 650 Mg Tablet, 650 MG PO FOR TRACH CHANGE, #30 TAB GIVE 30 MIN PRIOR TO TRACH CHANGE 08/19/17 Ranitidine Hcl* (Ranitidine Hcl*) 150 Mg Tablet, 150 MG PO Q12, #60 TAB 08/19/17 Omeprazole* (Omeprazole*) 20 Mg Capsule.dr, 20 MG PO BID, #60 CAP 08/19/17 Hydrocodone/Acetaminophen ([place] 5-325 Tablet) 1 Each Tablet, 1 EACH PO BID PRN for MANAGEMENT, TAB 08/19/17 Hydrocodone/Acetaminophen ([place] 5-325 Tablet) 1 Each Tablet, 1 EACH PO Q6 PRN for PAIN LEVEL 7-9, TAB 08/19/17 Multivitamins* (Theragran*) 1 Tab Tab, 1 TAB PO DAILY, TAB 08/19/17 Magnesium Hydroxide* (Milk Of Magnesia*) 400 Mg/5 Ml Oral.susp, 30 ML PO DAILY PRN for CONSTIPATION, ML 08/19/17 Metoprolol Tartrate* (Lopressor*) 25 Mg Tablet, 25 MG PO BID, #60 TAB HOLD FOR SBP <110 OR HR <60 08/19/17 Magnesium Oxide* (Magnesium Oxide*) 400 Mg Tablet, 400 MG PO DAILY, TAB 08/19/17 Loratadine* (Loratadine*) 10 Mg Tablet, 10 MG PO DAILY, #30 TAB 3/2/18 Clonazepam* (Klonopin*) 0.5 Mg Tab, 0.5 MG PO BID PRN for ANXIETY, TAB 08/19/17 Amitriptyline Hcl* (Amitriptyline Hcl*) 25 Mg Tablet, 25 MG PO QHS, #30 TAB 08/19/17 Bisacodyl (Dulcolax) 10 Mg Supp.rect, 10 MG RC DAILY PRN for CONSTIPATION, SUPP.RECT 08/19/17 Cholestyramine* (Questran* Powder) 378 Gm Powder, 4 GM PO BID, EA 08/19/17 Chlorhexidine Gluconate (Peridex) 473 Ml Mouthwash, 15 ML MM Q12, BOTTLE 08/19/17 Atorvastatin Calcium (Atorvastatin Calcium) 10 Mg Tablet, 10 MG PO QHS, #30 TAB 08/19/17 Aspirin (Low Dose Aspirin) 81 Mg Tablet.dr, 81 MG PO DAILY, #30 TAB 08/19/17 Polyvinyl Alcohol (Tears Again) 15 Ml Drops, 1 DRP BOTH EYES TID PRN for DRY EYES, BOTTLE 08/19/17 Albuterol Sulfate* (Albuterol Sulfate* Neb) 0.083%-3 Ml Neb, 2.5 MG NEB Q6 PRN for WHEEZING AND SOB, #30 VIAL 08/19/17 Albuterol Sulfate* (Albuterol Sulfate* Neb) 0.083%-3 Ml Neb, 2.5 MG NEB Q3H PRN for WHEEZING AND SOB, #30 VIAL 08/19/17 Allergies Allergies: Coded Allergies: vancomycin (Verified Allergy, Unknown, RASHES, 08/19/17) VERIFIED "RASHES", BUT MOST PROBABLY "RED KEY". PMhx/Soc History of Surgery: No Anesthesia Reaction: No Hx Neurological Disorder: No Hx Respiratory Disorders: Yes (COPD, chronic respiratory failure with TRACHEOSTOMY, VENTILATOR-DEPENDENT) Hx Cardiac Disorders: Yes (Hypertension, CHF, CAD) Hx Psychiatric Problems: No Hx Miscellaneous Medical Probl: No Hx Alcohol Use: No Hx Substance Use: No Hx Tobacco Use: No Smoking Status: Never smoker FmHx Family History: No diabetes Physical Exam Vitals Vital Signs Date Temp Pulse Resp B/P (MAP) Pulse Ox O2 O2 Flow FiO2 Time Delivery Rate 09/23/18 125 20 100 60 23:15 09/23/18 99.0 115 21 105/73 99 Trach 22:34 (84) Collar 09/23/18 99.0 154 21 119/63 99 21:39 (81) 09/23/18 99.0 154 21 119/63 99 Trach 21:39 (81) Collar 09/23/18 139 24 100 60 21:25 Physical Exam Const: No acute distress Head: Atraumatic Eyes: Normal Conjunctiva ENT: Normal External Ears, Nose and Mouth. Neck: Full range of motion. No meningismus. Resp: Clear to auscultation bilaterally Cardio: Regular rate and rhythm, no murmurs Abd: Soft, non tender, non distended. Normal bowel sounds Skin: No petechiae or rashes Back: No midline or flank tenderness Ext: No cyanosis, or edema Neur: Awake and alert Psych: Normal Mood and Affect Result Diagram: 09/24/18 0327 09/24/18 0327 Results 24 hrs Laboratory Tests Test 09/23/18 21:30 09/23/18 21:35 09/23/18 23:06 White Blood Count 17.7 10^3/ul Red Blood Count 4.11 10^6/ul Hemoglobin 12.2 g/dl Hematocrit 39.2 % Mean Corpuscular Volume 95.4 fl Mean Corpuscular Hemoglobin 29.7 pg Mean Corpuscular 31.1 g/dl Hemoglobin Concent Red Cell Distribution Width 12.1 % Platelet Count 259 10^3/UL Mean Platelet Volume 9.2 fl Immature Granulocytes % 1.100 % Neutrophils % 86.2 % Lymphocytes % 6.7 % Monocytes % 5.1 % Eosinophils % 0.5 % Basophils % 0.4 % Nucleated Red Blood Cells % 0.0 /100WBC Immature Granulocytes # 0.200 10^3/ul Neutrophils # 15.2 10^3/ul Lymphocytes # 1.2 10^3/ul Monocytes # 0.9 10^3/ul Eosinophils # 0.1 10^3/ul Basophils # 0.1 10^3/ul Nucleated Red Blood Cells # 0.0 10^3/ul Sodium Level 140 mmol/L Potassium Level 4.8 mmol/L Chloride Level 93 mmol/L Carbon Dioxide Level 39 mmol/L Anion Gap 8 Blood Urea Nitrogen 15 mg/dl Creatinine 0.67 mg/dl Est Glomerular Filtrat > 60 mL/min Rate mL/min Glucose Level 131 mg/dl Calcium Level 9.7 mg/dl Troponin I < 0.012 ng/ml POC Venous Lactate 1.6 mmol/L Blood Gas Specimen Source Blood arterial Arterial Blood Date Drawn 09/23/2018 11:10:51 PM Arterial Blood pH 7.377 (Temp corrected) Arterial Blood pCO2 73.3 mmhg (Temp correct) Arterial Blood pO2 208.6 mmHG (Temp corrected) Arterial Blood HCO3 42.1 mmol/L Arterial Blood Base Excess 13.7 mmol/L Arterial Blood 99.2 mmHG Oxygen Saturation Elijah Test ACCEPTAB Arterial Blood Gas Right Radial Puncture Site Arterial 0.3 % Blood Carboxyhemoglobin Arterial Blood Methemoglobin 0.2 % Blood Gas A-a O2 138.6 mmHg Differential Oxyhemoglobin Percent 98.7 % Blood Gas Temperature 37.0 C Blood Gas Respiration Rate 20.0 Blood Gas Actual 25 Respiration Rate Blood Gas Modality VENT - AC FiO2 60.0 % Blood Gas Tidal Volume 650.0 mL Blood Gas Low PEEP Setting 8.0 cmH2O Blood Gas Critical Value Adina SEALS MD Read Back Blood Gas Notified Whom [place] Blood Gas Notified Time 09/23/2018 11:24:47 PM Current Medications Medications Dose Sig/Luis Start Time Status Last (Trade) Ordered Route PRN Stop Time Admin Dose Reason Admin 150 ml @ ONCE STAT 09/23/18 DC 09/23/18 Levofloxacin/ 100 mls/hr IVPB 22:51 09/24/18 23:22 Dextrose 00:20 Sodium 500 ml @ Q1H STAT 09/23/18 DC 09/23/18 Chloride 500 mls/hr IV 22:51 09/23/18 23:22 23:50 Procedures/MDM EMERGENT LABS AND DIAGNOSTIC STUDIES: Lab Results above were reviewed and interpreted by me. CBC: Leukocytosis, concerning for infection. Mild anemia. CMP: Elevated CO2, likely secondary to retention. No evidence of clinically significant electrolyte abnormality, acidosis, renal failure, hypoglycemia Troponin within normal limits, not indicative of cardiac ischemia Lactate within normal limits without evidence of sepsis or tissue hypoperfusion 12-lead EKG was interpreted by Jacob Seals MD: Normal Sinus Rhythm with ventricular rate of 134 beats per minute Normal axis Normal intervals No acute ST or T wave changes suggestive of acute ischemia or STEMI. Radiology Results as interpreted by Radiology below were reviewed by Macrina Seals MD: Chest x-ray: IMPRESSION: 1. The lungs are hyperinflated, suggesting COPD. Increased interstitial markings bilaterally, unchanged 2. Left lower lobe atelectasis versus consolidation in the retrocardiac area. Left lower lobe pneumonia not excluded. This is new when compared to 11/21/2016. Initial Nursing notes reviewed. Previous Medical Records requested via the Electronic Health Record. EMERGENCY DEPARTMENT COURSE / MEDICAL DECISION MAKING: Admit MDM: Patient is presenting with chest pain and shortness of breath on the ventilator. Vitals were notable for tachycardia and tachypnea without fever. Sepsis workup was initiated. ACS workup was initiated. I considered pneumothorax, pneumomediastinum, pulmonary embolism, but lower suspicion for these. X-ray of chest did show evidence of possible pneumonia. This does fit with the patient's leukocytosis and increased shortness of breath. patient's infectious symptoms have not stabilized, and the patient is at risk of rapid decompensation. The patient will be admitted for careful hydration, antibiotic therapy, and i nfectious source control. Severe Sepsis criteria: Infectious source: Health care associated pneumonia End organ damage indicated by: Acute Resp Failure (sat < 92% w/o oxygen) Sepsis Management: Time of recognition of severe sepsis: At time of MSE Within 3 hours of recognition: Blood cultures x 2 before broad-spectrum antibiotics: Yes 30 ml/kg NS bolus Completed Initial lactate within normal limits Repeat lactate Not indicated as initial lactate < 2.0 Septic Shock Assessment: Any lactic acid > 4.0 No Persistent hypotension (SBP < 90 or 40 mmHg drop, MAP < 65) despite 30 mL/kg IV fluid bolus No Accepting Care Team Current data and ongoing care discussed. Admitting Physician: Maureen Chapman, on-call for PCP Bora Pereira Negative Cutter(s): Outstanding Data: cultures Critical Care Time: 35 minutes Treatments/Evaluations: Close monitoring and treatment of unstable vital signs, cardiorespiratory, and neurologic status, while maintaining tight balance of fluid, respiratory, and cardiac interventions. This includes the administration of emergency fluid management while maintaining close respiratory support as well as the provision of immediate and broad-spectrum antibiotic therapy, while performing a simultaneous assessment for possible sources in order to direct targeted therapy. This time includes discussing the case with the patient and the patients family.This time also includes the consideration for invasive and chemical support to prevent cardiopulmonary collapse. This time does not include all procedures stated elsewhere in this record. This time also includes reviewing old records, labs and radiological studies. This time includes examining and reexamining the patient. Additionally, this time also includes arranging care with admitting and consulting physicians. Departure Diagnosis: Primary Impression: Chest pain Chest pain type: unspecified Qualified Codes: R07.9 - Chest pain, unspecified Additional Impressions: Sepsis Sepsis type: sepsis due to unspecified organism Qualified Codes: A41.9 - Sepsis, unspecified organism Healthcare-associated pneumonia Condition: Serious KEYLA SEALS MD Sep 23, 2018 23:34
[2018-09-24] VITALS (20 sets, daily range): BP systolic 124–147; BP diastolic 78–87; PULSE 86–117; RESP 18–20; Ht 180.3 cm; Wt 102.2 kg
[2018-09-24] MEDS ORDERED: ARTIFICIAL TEARS 15 ML OPH BOTH EYES PRN (05:00)
[2018-09-24] MEDS ORDERED: MAGNESIUM HYDROXIDE 30ML CUP PO PRN (05:00)
[2018-09-24] MEDS ORDERED: ACETAMINOPHEN 325 MG TAB PO PRN (05:00)
[2018-09-24] MEDS ORDERED: VANCOMYCIN IV PER PHARMACY XX SCH (05:00)
[2018-09-24] MEDS ORDERED: BISACODYL 10 MG SUPP PR PRN (05:00)
[2018-09-24] MEDS ORDERED: HYDROCODONE/APAP (5/325) TAB PO PRN (05:00)
[2018-09-24] MEDS ORDERED: DEXTROSE 50% 50 ML SYRINGE IV PRN ×2 (05:30)
[2018-09-24] MEDS ORDERED: GLUCOSE GEL 15 GRAM TUBE PO PRN ×2 (05:30)
[2018-09-24] MEDS ORDERED: GLUCAGON 1 MG INJ IM PRN (05:30)
[2018-09-24] MEDS ORDERED: GLUCOSE GEL 15 GRAM TUBE BUCCAL PRN (05:30)
[2018-09-24] MEDS: ALBUTEROL/IPRATROPIUM (NEB) 3 ML AMP HHN PRN ×4 (05:48→21:18)
[2018-09-24] MEDS: PANTOPRAZOLE (EC) 40 MG TAB PO SCH ×2 (06:55→17:44)
[2018-09-24] MEDS: PIPER-TAZO 3.375 GM IV (PMX) 100 ML IVPB SCH ×3 (06:55→17:40)
[2018-09-24] MEDS: CHLORHEXIDINE GLUCONATE 15 ML UD CUP MM SCH ×2 (08:51→21:09)
[2018-09-24] MEDS: MULTIVITAMINS THERAPEUTIC TAB PO SCH (08:52)
[2018-09-24] MEDS: METOPROLOL 25 MG TAB PO SCH ×2 (08:52→21:10)
[2018-09-24] MEDS: LORATADINE 10 MG TAB PO SCH (08:52)
[2018-09-24] MEDS: RANITIDINE 150 MG TAB PO SCH ×2 (08:52→21:10)
[2018-09-24] MEDS: MAGNESIUM OXIDE 400 MG TAB PO SCH (08:53)
[2018-09-24] MEDS: ASPIRIN (EC) 81 MG TAB PO SCH (08:53)
[2018-09-24] MEDS: ASCORBIC ACID 500 MG TAB PO SCH (08:53)
[2018-09-24] MEDS: CHOLESTYRAMINE 4 GM PACKET PO SCH ×2 (08:56→21:00)
[2018-09-24] MEDS ORDERED: NON-FORMULARY/PATIENT OWN MED (Omeprazole* 20 MG) PO SCH (09:00)
[2018-09-24] MEDS ORDERED: NON-FORMULARY/PATIENT OWN MED (Cran/Vitc/Mannose/Inulin/Brom (Uti-Stat Liquid) 3,875 MG) PO SCH (09:00)
[2018-09-24] MEDS: clonAZEPAM 0.5 MG TAB PO PRN (12:17)
[2018-09-24] MEDS: LINEZOLID 600 MG/D5W (PMX) 300 ML IVPB SCH ×2 (12:18→21:18)
--- NOTE | 2018-09-24 12:43 | HP ---
Date/Time of Note Date/Time of Note DATE: 09/24/18 TIME: 12:33 Assessment/Plan VTE Prophylaxis Risk score (from [facility]0 risk: 9 SCD applied (from [facility]): No SCD contraindicated: other Pharmacological prophylaxis: NA/contraindicated, other Pharm contraindication: other Lines/Catheters IV Catheter Type (from [facility]): Peripheral IV Urinary Cath still in place: No Assessment/Plan Assessment/Plan 1. sepsis: likely due to HCAP - cont abx and IVF - ID consult 2. chest pain: - trop negative x2. likely related to PNA - will obtain cardiology consult as pt has hx of cad 3. VDRF: - pulmonary consult for vent management - bronchodilator prn 4. DM: - cont ssi 5. hx of a fib: - cont mtp - unclear why pt is not on anticoagulation. will defer to cardiology 6. hx of COPD: - cont bronchodilator 7. anemia: likely related to anemia of chronic disease - will monitor hg Result Diagram: 09/24/18 0327 09/24/18 0327 Results 24hrs Laboratory Tests Test 09/23/18 21:30 09/23/18 21:35 09/23/18 23:06 09/24/18 03:27 White Blood Count 17.7 #H 15.2 H Red Blood Count 4.11 L 3.75 L Hemoglobin 12.2 L 11.3 L Hematocrit 39.2 #L 36.5 L Mean Corpuscular 95.4 97.3 Volume Mean Corpuscular 29.7 30.1 Hemoglobin Mean Corpuscular 31.1 L 31.0 L Hemoglobin Concent Red Cell 12.1 12.1 Distribution Width Platelet Count 259 # 253 Mean Platelet 9.2 9.5 Volume Immature 1.100 H 1.100 H Granulocytes % Neutrophils % 86.2 H 80.5 H Lymphocytes % 6.7 L 9.6 L Monocytes % 5.1 7.4 Eosinophils % 0.5 1.1 Basophils % 0.4 0.3 Nucleated Red 0.0 0.0 Blood Cells % Immature 0.200 H 0.170 H Granulocytes # Neutrophils # 15.2 H 12.2 H Lymphocytes # 1.2 1.5 Monocytes # 0.9 1.1 H Eosinophils # 0.1 0.2 Basophils # 0.1 0.1 Nucleated Red 0.0 0.0 Blood Cells # Sodium Level 140 141 Potassium Level 4.8 4.7 Chloride Level 93 L 90 L Carbon Dioxide 39 H 41 *H Level Anion Gap 8 10 Blood Urea 15 19 Nitrogen Creatinine 0.67 0.81 Est Glomerular > 60 > 60 Filtrat Rate mL/min Glucose Level 131 128 Calcium Level 9.7 9.6 Troponin I < 0.012 < 0.012 POC Venous Lactate 1.6 Blood Gas Specimen Blood arterial Source Arterial Blood 09/23/2018 11:10:51 Date Drawn PM Arterial Blood pH 7.377 (Temp corrected) Arterial Blood 73.3 H pCO2 (Temp correct) Arterial Blood pO2 208.6 H (Temp corrected) Arterial Blood 42.1 *H HCO3 Arterial Blood 13.7 H Base Excess Arterial Blood 99.2 H Oxygen Saturation Elijah Test ACCEPTAB Arterial Blood Gas Right Radial Puncture Site Arterial 0.3 Blood Carboxyhemog lobin Arterial Blood 0.2 Methemoglobin Blood Gas A-a O2 138.6 H Differential Oxyhemoglobin 98.7 Percent Blood Gas 37.0 Temperature Blood Gas 20.0 Respiration Rate Blood Gas Actual 25 Respiration Rate Blood Gas Modality VENT - AC FiO2 60.0 Blood Gas Tidal 650.0 Volume Blood Gas Low PEEP 8.0 Setting Blood Gas Critical EKAdina SHARPE MD Value Read Back Blood Gas Notified MA Whom Blood Gas Notified 09/23/2018 11:24:47 Time PM Hemoglobin A1c 5.0 Creatine Kinase 91 Creatine Kinase 1.9 Index Creatinine Kinase 1.70 MB (Mass) Test 09/24/18 05:22 09/24/18 10:00 Bedside Glucose 109 Creatine Kinase 158 Creatine Kinase 0.8 Index Creatinine Kinase 1.28 MB (Mass) Troponin I < 0.012 HPI/ROS Admit Date/Time Admit Date/Time Sep 23, 2018 at 23:15 Hx of Present Illness CHIEF COMPLAINT: Shortness of breath, atrial fibrillation, rapid rate. HISTORY OF PRESENT ILLNESS: This is a 58yo M with a past medical history of ventilator dependent respiratory failure, history of COPD, history of dysphagia, status post PEG, status post PEG removal, history of coronary artery disease, hypertension, history of AFib, anemia, GERD, bipolar disorder who resides at a [facility] facility. The patient presented with chest pain and fever. ER evaluation revealed leukocytosis and CXR showed possible PNA. trop negative x2. Pt was started on IVF and abx and admitted for further evaluation. He continues to complain of persistent chest pain. Denies shortness of breath or n/v. PAST MEDICAL HISTORY: As stated above, history of ventilator dependent respiratory failure, history of COPD, history of hypertension, history of AFib, history of bipolar disorder, history of chronic pain syndrome, history of chronic abdominal pain. PAST SURGICAL HISTORY: Status post PEG, status post PEG removal, status post trach. FAMILY HISTORY: No family history of kidney disease. SOCIAL HISTORY: Positive for drug use in the past. ALLERGIES: NO KNOWN DRUG ALLERGIES. REVIEW OF SYSTEMS: A 14-point review of systems was conducted. Pertinent positives in HPI, otherwise negative. PMH/Family/Social Past Medical History Medications Current Medications Acetaminophen (Tylenol Tab) 650 mg PRN PRN PO NOTE; Start 09/24/18 at 05:00 Amitriptyline HCl (Elavil) 25 mg QHS PO ; Start 09/24/18 at 21:00 Ascorbic Acid (Vitamin C) 500 mg DAILY PO Last administered on 09/24/18at 08:53; Admin Dose 500 MG; Start 09/24/18 at 09:00 Aspirin (Halfprin) 81 mg DAILY PO Last administered on 09/24/18at 08:53; Admin Dose 81 MG; Start 09/24/18 at 09:00 Atorvastatin Calcium (Lipitor) 10 mg QHS PO ; Start 09/24/18 at 21:00 Bisacodyl (Dulcolax Supp) 10 mg DAILY PRN [place] CONSTIPATION; Start 09/24/18 at 05:00 Chlorhexidine Gluconate (Peridex) 15 ml Q12 MM Last administered on 09/24/18at 08:51; Admin Dose 15 ML; Start 09/24/18 at 09:00 Cholestyramine Resin (Questran) 1 pkt BID PO Last administered on 09/24/18at 08:56; Admin Dose 1 PKT; Start 09/24/18 at 09:00 Clonazepam (Klonopin) 0.5 mg BID PRN PO ANXIETY Last administered on 09/24/18at 12:17; Admin Dose 0.5 MG; Start 09/24/18 at 05:00 Acetaminophen/ Hydrocodone Bitart ([place] (5/325)) 1 tab BID PRN PO MANAGEMENT; Start 09/24/18 at 05:00 Acetaminophen/ Hydrocodone Bitart ([place] (5/325)) 1 tab Q6 PRN PO PAIN LEVEL 7- 9; Start 09/24/18 at 05:00 Loratadine (Claritin) 10 mg DAILY PO Last administered on 09/24/18 08:52; Admin Dose 10 MG; Start 09/24/18 at 09:00 Magnesium Hydroxide (Milk Of Mag) 30 ml DAILY PRN PO CONSTIPATION; Start 09/24/18 at 05:00 Magnesium Oxide (Mag-Ox 400) 400 mg DAILY PO Last administered on 09/24/18at 08:53; Admin Dose 400 MG; Start 09/24/18 at 09:00 Metoprolol Tartrate (Lopressor) 25 mg BID PO Last administered on 09/24/18 08:52; Admin Dose 25 MG; Start 09/24/18 at 09:00 Multivitamins Therapeutic (Theragran) 1 tab DAILY PO Last administered on 09/24/18at 08:52; Admin Dose 1 TAB; Start 09/24/18 at 09:00 Eye Lubricant (Artificial Tears Oph) 1 drop TID PRN BOTH EYES DRY EYES; Start 09/24/18 at 05:00 Ranitidine HCl (Zantac) 150 mg Q12 PO Last administered on 09/24/18at 08:52; Admin Dose 150 MG; Start 09/24/18 at 09:00 Piperacillin Sod/ Tazobactam Sod 100 ml @ 200 mls/hr Q6 IVPB Last administered on 09/24/18at 11:35; Admin Dose 200 MLS/HR; Start 09/24/18 at 06:00 Albuterol/ Ipratropium (Duoneb) 3 ml Q4H RESP THERAPY PRN HHN SHORTNESS OF BREATH Last administered on 09/24/18at 07:54; Admin Dose 3 ML; Start 09/24/18 at 05:00 Lorazepam (Ativan) 1 mg Q6H PRN IV ANXIETY; Start 09/24/18 at 05:00 Diagnostic Test (Pha) (Accu-Chek) 1 ea 02 XX ; Start 09/25/18 at 02:00 Miscellaneous Information 1 ea NOTE XX ; Start 09/24/18 at 05:30 Glucose (Glutose) 15 gm Q15M PRN PO DECREASED GLUCOSE; Start 09/24/18 at 05:30 Glucose (Glutose) 22.5 gm Q15M PRN PO DECREASED GLUCOSE; Start 09/24/18 at 05:30 Dextrose (D50w Syringe) 25 ml Q15M PRN IV DECREASED GLUCOSE; Start 09/24/18 at 05:30 Dextrose (D50w Syringe) 50 ml Q15M PRN IV DECREASED GLUCOSE; Start 09/24/18 at 05:30 Glucagon (Glucagen) 1 mg Q15M PRN IM DECREASED GLUCOSE; Start 09/24/18 at 05:30 Glucose (Glutose) 15 gm Q15M PRN BUCCAL DECREASED GLUCOSE; Start 09/24/18 at 05:30 Pantoprazole (Protonix Tab) 40 mg BID@0600,1800 PO Last administered on 09/24/18at 06:55; Admin Dose 40 MG; Start 09/24/18 at 06:00 Linezolid 300 ml @ 300 mls/hr Q12 IVPB Last administered on 09/24/18at 12:18; Admin Dose 300 MLS/HR; Start 09/24/18 at 11:30 Coded Allergies: vancomycin (Verified Allergy, Unknown, RASHES, 08/19/17) VERIFIED "RASHES", BUT MOST PROBABLY "RED KEY". Past Surgical History Past Surgical Hx: other Family History Significant Family History: diabetes Social History Smoking Status: Former smoker Exam/Review of Systems Vital Signs Vitals Vital Signs Date Temp Pulse Resp B/P (MAP) Pulse Ox O2 O2 Flow FiO2 Time Delivery Rate 09/24/18 98.2 90 18 133/78 98 11:51 (96) 09/24/18 40 11:10 09/24/18 Trach 01:05 Collar Exam Exam PHYSICAL EXAMINATION: HEENT: Head is normocephalic. Pupils are reactive to light. NECK: Supple. HEART: Irregularly irregular. LUNGS: Show diminished breath sounds at base. ABDOMEN: Soft, nontender to palpation. EXTREMITIES: No cyanosis. Trace edema. DERMATOLOGIC: No rashes. MUSCULOSKELETAL: No joint effusions. NEUROLOGIC: No focal deficits. KHANH SOSA MD Sep 24, 2018 12:43
[2018-09-24] MEDS ORDERED: NITROGLYCERIN (SL) 0.4 MG TAB SL PRN (13:00)
[2018-09-24] MEDS: morphine 2 MG INJ IV PRN ×3 (13:03→21:34)
[2018-09-24] MEDS: SOD CHLORIDE 0.9% 1,000 ML IV SCH ×2 (13:27→23:00)
[2018-09-24] MEDS: ENOXAPARIN 40 MG/0.4 ML SYG SC SCH (13:38)
--- NOTE | 2018-09-24 13:59 | CONS ---
Assessment/Plan Assessment/Plan Assessment/Plan (Daily) IMP: 1. Fevers/Leukocytosis--in a patient with advanced emphysema and VDRF s/p numerous prior infections. CXR and clinical exam not impressive for HCAP, though appropriate to cover. Also would obtain urine studies and evaluate for wounds 2. VDRF 3. Chronic Hypercapnic Resp Failure--ABG notable for chronic resp acidosis despite vent settings with very high Vt. 4. Afib 5. Recent bacteremia 6. CAD RECS: 1. Bronchodilators with duonebs Q4 hours 2. Broad spectrum abx; with plans to de-escalate pending cultures 3. UA; urine cx; resp cx; and BC x 2 4 Change vent setting to V-AC rate 16; Vt 550; PEEP 7; titrate FiO2 to maintain SpO2 88-92% 5. Obtain am ABG--tolerate permissive hypercapnia in order to protect lung from volutrauma 6. DVT/GI prophylaxis Consultation Date/Type/Reason Admit Date/Time Sep 23, 2018 at 23:15 Date of Consultation: Sep 24, 2018 Type of Consult Pulmonary Date/Time of Note DATE: 09/24/18 TIME: 13:48 Hx of Present Illness Briefly, this is a 58-year-old man with a history of severe bullous emphysema, chronic ventilator dependence with chronic hypercapnic and hypoxemic coronary artery disease, hypertension, AFib, s/p recent admit last month with sepsis and gram positive bacteremia, who was admitted to [facility] from SNF with fevers and chest pain. Noted to have leukocytosis and subtle radiographic changes--evidenced by possible retrocardiac airspace disease--when compared to prior images. Subjective hx not possible: pt non-verbal Past Medical History see HPI Medical History: coronary artery disease, GERD, hypertension Home Meds Reported Medications Ascorbic Acid* (Vitamin C*) 500 Mg Capsule.sa, 500 MG PO DAILY, CAP 08/19/17 Cran/Vitc/Mannose/Inulin/Brom (Uti-Stat Liquid) 3,875 Mg/30 Ml Liquid, 3875 MG PO DAILY 08/19/17 Acetaminophen* (Acetaminophen*) 650 Mg Tablet, 650 MG PO FOR TRACH CHANGE, #30 TAB GIVE 30 MIN PRIOR TO TRACH CHANGE 08/19/17 Ranitidine Hcl* (Ranitidine Hcl*) 150 Mg Tablet, 150 MG PO Q12, #60 TAB 08/19/17 Omeprazole* (Omeprazole*) 20 Mg Capsule.dr, 20 MG PO BID, #60 CAP 08/19/17 Hydrocodone/Acetaminophen (Tea 5-325 Tablet) 1 Each Tablet, 1 EACH PO BID PRN for MANAGEMENT, TAB 08/19/17 Hydrocodone/Acetaminophen (Tea 5-325 Tablet) 1 Each Tablet, 1 EACH PO Q6 PRN for PAIN LEVEL 7-9, TAB 08/19/17 Multivitamins* (Theragran*) 1 Tab Tab, 1 TAB PO DAILY, TAB 08/19/17 Magnesium Hydroxide* (Milk Of Magnesia*) 400 Mg/5 Ml Oral.susp, 30 ML PO DAILY PRN for CONSTIPATION, ML 08/19/17 Metoprolol Tartrate* (Lopressor*) 25 Mg Tablet, 25 MG PO BID, #60 TAB HOLD FOR SBP <110 OR HR <60 08/19/17 Magnesium Oxide* (Magnesium Oxide*) 400 Mg Tablet, 400 MG PO DAILY, TAB 08/19/17 Loratadine* (Loratadine*) 10 Mg Tablet, 10 MG PO DAILY, #30 TAB 08/19/17 Clonazepam* (Klonopin*) 0.5 Mg Tab, 0.5 MG PO BID PRN for ANXIETY, TAB 08/19/17 Amitriptyline Hcl* (Amitriptyline Hcl*) 25 Mg Tablet, 25 MG PO QHS, #30 TAB 08/19/17 Bisacodyl (Dulcolax) 10 Mg Supp.rect, 10 MG RC DAILY PRN for CONSTIPATION, SUPP.RECT 08/19/17 Cholestyramine* (Questran* Powder) 378 Gm Powder, 4 GM PO BID, EA 08/19/17 Chlorhexidine Gluconate (Peridex) 473 Ml Mouthwash, 15 ML MM Q12, BOTTLE 08/19/17 Atorvastatin Calcium (Atorvastatin Calcium) 10 Mg Tablet, 10 MG PO QHS, #30 TAB 08/19/17 Aspirin (Low Dose Aspirin) 81 Mg Tablet.dr, 81 MG PO DAILY, #30 TAB 08/19/17 Polyvinyl Alcohol (Tears Again) 15 Ml Drops, 1 DRP BOTH EYES TID PRN for DRY EYES, BOTTLE 08/19/17 Albuterol Sulfate* (Albuterol Sulfate* Neb) 0.083%-3 Ml Neb, 2.5 MG NEB Q6 PRN for WHEEZING AND SOB, #30 VIAL 08/19/17 Albuterol Sulfate* (Albuterol Sulfate* Neb) 0.083%-3 Ml Neb, 2.5 MG NEB Q3H PRN for WHEEZING AND SOB, #30 VIAL 08/19/17 Medications Current Medications Acetaminophen (Tylenol Tab) 650 mg PRN PRN PO NOTE; Start 09/24/18 at 05:00 Amitriptyline HCl (Elavil) 25 mg QHS PO ; Start 09/24/18 at 21:00 Ascorbic Acid (Vitamin C) 500 mg DAILY PO Last administered on 09/24/18at 08:53; Admin Dose 500 MG; Start 09/24/18 at 09:00 Aspirin (Halfprin) 81 mg DAILY PO Last administered on 09/24/18at 08:53; Admin Dose 81 MG; Start 09/24/18 at 09:00 Atorvastatin Calcium (Lipitor) 10 mg QHS PO ; Start 09/24/18 at 21:00 Bisacodyl (Dulcolax Supp) 10 mg DAILY PRN LA CONSTIPATION; Start 09/24/18 at 05:00 Chlorhexidine Gluconate (Peridex) 15 ml Q12 MM Last administered on 09/24/18at 08:51; Admin Dose 15 ML; Start 09/24/18 at 09:00 Cholestyramine Resin (Questran) 1 pkt BID PO Last administered on 09/24/18at 08:56; Admin Dose 1 PKT; Start 09/24/18 at 09:00 Clonazepam (Klonopin) 0.5 mg BID PRN PO ANXIETY Last administered on 09/24/18at 12:17; Admin Dose 0.5 MG; Start 09/24/18 at 05:00 Acetaminophen/ Hydrocodone Bitart (Tea (5/325)) 1 tab BID PRN PO MANAGEMENT; Start 09/24/18 at 05:00 Acetaminophen/ Hydrocodone Bitart (Tea (5/325)) 1 tab Q6 PRN PO PAIN LEVEL 7- 9; Start 09/24/18 at 05:00 Loratadine (Claritin) 10 mg DAILY PO Last administered on 09/24/18at 08:52; Admin Dose 10 MG; Start 09/24/18 at 09:00 Magnesium Hydroxide (Milk Of Mag) 30 ml DAILY PRN PO CONSTIPATION; Start 09/24/18 at 05:00 Magnesium Oxide (Mag-Ox 400) 400 mg DAILY PO Last administered on 09/24/18at 08:53; Admin Dose 400 MG; Start 09/24/18 at 09:00 Metoprolol Tartrate (Lopressor) 25 mg BID PO Last administered on 09/24/18at 08:52; Admin Dose 25 MG; Start 09/24/18 at 09:00 Multivitamins Therapeutic (Theragran) 1 tab DAILY PO Last administered on 09/24/18at 08:52; Admin Dose 1 TAB; Start 09/24/18 at 09:00 Eye Lubricant (Artificial Tears Oph) 1 drop TID PRN BOTH EYES DRY EYES; Start 09/24/18 at 05:00 Ranitidine HCl (Zantac) 150 mg Q12 PO Last administered on 09/24/18at 08:52; Adm in Dose 150 MG; Start 09/24/18 at 09:00 Piperacillin Sod/ Tazobactam Sod 100 ml @ 200 mls/hr Q6 IVPB Last administered on 09/24/18at 11:35; Admin Dose 200 MLS/HR; Start 09/24/18 at 06:00 Albuterol/ Ipratropium (Duoneb) 3 ml Q4H RESP THERAPY PRN HHN SHORTNESS OF BREATH Last administered on 09/24/18at 07:54; Admin Dose 3 ML; Start 09/24/18 at 05:00 Lorazepam (Ativan) 1 mg Q6H PRN IV ANXIETY; Start 09/24/18 at 05:00 Diagnostic Test (Pha) (Accu-Chek) 1 ea 02 XX ; Start 09/25/18 at 02:00 Miscellaneous Information 1 ea NOTE XX ; Start 09/24/18 at 05:30 Glucose (Glutose) 15 gm Q15M PRN PO DECREASED GLUCOSE; Start 09/24/18 at 05:30 Glucose (Glutose) 22.5 gm Q15M PRN PO DECREASED GLUCOSE; Start 09/24/18 at 05:30 Dextrose (D50w Syringe) 25 ml Q15M PRN IV DECREASED GLUCOSE; Start 09/24/18 at 05:30 Dextrose (D50w Syringe) 50 ml Q15M PRN IV DECREASED GLUCOSE; Start 09/24/18 at 05:30 Glucagon (Glucagen) 1 mg Q15M PRN IM DECREASED GLUCOSE; Start 09/24/18 at 05:30 Glucose (Glutose) 15 gm Q15M PRN BUCCAL DECREASED GLUCOSE; Start 09/24/18 at 05:30 Pantoprazole (Protonix Tab) 40 mg BID@0600,1800 PO Last administered on 09/24/18at 06:55; Admin Dose 40 MG; Start 09/24/18 at 06:00 Linezolid 300 ml @ 300 mls/hr Q12 IVPB Last administered on 09/24/18at 12:18; Admin Dose 300 MLS/HR; Start 09/24/18 at 11:30 Morphine Sulfate (morphine) 2 mg Q4H PRN IV SEVERE PAIN LEVEL 7-10 Last administered on 09/24/18at 13:03; Admin Dose 2 MG; Start 09/24/18 at 13:00 Nitroglycerin (Nitroglycerin (Sl Tab) 0.4 Mg) 1 tab Q5M PRN SL ANGINA; Start 09/24/18 at 13:00 Sodium Chloride 1,000 ml @ 100 mls/hr Q10H IV Last administered on 09/24/18at 13:27; Admin Dose 100 MLS/HR; Start 09/24/18 at 13:00 Enoxaparin Sodium (Lovenox) 40 mg DAILY SC Last administered on 09/24/18at 13:38; Admin Dose 40 MG; Start 09/24/18 at 13:00 Allergies: Coded Allergies: vancomycin (Verified Allergy, Unknown, RASHES, 08/19/17) VERIFIED "RASHES", BUT MOST PROBABLY "RED KEY". Past Surgical History See HPI Past Surgical Hx: other Family History Significant Family History: no pertinent family hx Social History Alcohol Use: none Smoking Status: Former smoker Drug Use: none Exam/Review of Systems Exam Vitals Vital Signs Date Temp Pulse Resp B/P (MAP) Pulse Ox O2 O2 Flow FiO2 Time Delivery Rate 09/24/18 98.2 90 18 133/78 98 11:51 (96) 09/24/18 40 11:10 09/24/18 Trach 01:05 Collar Constitutional: alert, oriented Head: normocephalic, atraumatic Eyes: nl conjunctiva, EOMI, nl lids ENMT: nl external ears & nose, nl lips & teeth, nl nasal mucosa & septum, mucosa pink and moist Neck: supple, non-tender Respiratory: diminished breath sounds, intercostal retraction Cardiovascular: irregular rhythm, systolic murmur Gastrointestinal: soft, nl liver, spleen, non-tender Musculoskeletal: nl extremities to inspection Extremities: normal pulses Neurological: 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 HELPER II-XII 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 Skin: nl turgor Results Result Diagram: 09/24/18 0327 09/24/18 0327 Results 24hrs Laboratory Tests Test 09/23/18 21:30 09/23/18 21:35 09/23/18 23:06 09/24/18 03:27 White Blood Count 17.7 #H 15.2 H Red Blood Count 4.11 L 3.75 L Hemoglobin 12.2 L 11.3 L Hematocrit 39.2 #L 36.5 L Mean Corpuscular 95.4 97.3 Volume Mean Corpuscular 29.7 30.1 Hemoglobin Mean Corpuscular 31.1 L 31.0 L Hemoglobin Concent Red Cell 12.1 12.1 Distribution Width Platelet Count 259 # 253 Mean Platelet 9.2 9.5 Volume Immature 1.100 H 1.100 H Granulocytes % Neutrophils % 86.2 H 80.5 H Lymphocytes % 6.7 L 9.6 L Monocytes % 5.1 7.4 Eosinophils % 0.5 1.1 Basophils % 0.4 0.3 Nucleated Red 0.0 0.0 Blood Cells % Immature 0.200 H 0.170 H Granulocytes # Neutrophils # 15.2 H 12.2 H Lymphocytes # 1.2 1.5 Monocytes # 0.9 1.1 H Eosinophils # 0.1 0.2 Basophils # 0.1 0.1 Nucleated Red 0.0 0.0 Blood Cells # Sodium Level 140 141 Potassium Level 4.8 4.7 Chloride Level 93 L 90 L Carbon Dioxide 39 H 41 *H Level Anion Gap 8 10 Blood Urea 15 19 Nitrogen Creatinine 0.67 0.81 Est Glomerular > 60 > 60 Filtrat Rate mL/min Glucose Level 131 128 Calcium Level 9.7 9.6 Troponin I < 0.012 < 0.012 POC Venous Lactate 1.6 Blood Gas Specimen Blood arterial Source Arterial Blood 09/23/2018 11:10:51 Date Drawn PM Arterial Blood pH 7.377 (Temp corrected) Arterial Blood 73.3 H pCO2 (Temp correct) Arterial Blood pO2 208.6 H (Temp corrected) Arterial Blood 42.1 *H HCO3 Arterial Blood 13.7 H Base Excess Arterial Blood 99.2 H Oxygen Saturation Elijah Test ACCEPTAB Arterial Blood Gas Right Radial Puncture Site Arterial 0.3 Blood Carboxyhemog lobin Arterial Blood 0.2 Methemoglobin Blood Gas A-a O2 138.6 H Differential Oxyhemoglobin 98.7 Percent Blood Gas 37.0 Temperature Blood Gas 20.0 Respiration Rate Blood Gas Actual 25 Respiration Rate Blood Gas Modality VENT - AC FiO2 60.0 Blood Gas Tidal 650.0 Volume Blood Gas Low PEEP 8.0 Setting Blood Gas Critical Adina ARMOS MD Value Read Back Blood Gas Notified VENTURA Whom Blood Gas Notified 09/23/2018 11:24:47 Time PM Hemoglobin A1c 5.0 Creatine Kinase 91 Creatine Kinase 1.9 Index Creatinine Kinase 1.70 MB (Mass) Test 09/24/18 05:22 09/24/18 10:00 Bedside Glucose 109 Creatine Kinase 158 Creatine Kinase 0.8 Index Creatinine Kinase 1.28 MB (Mass) Troponin I < 0.012 Medications Medication Current Medications Acetaminophen (Tylenol Tab) 650 mg PRN PRN PO NOTE; Start 09/24/18 at 05:00 Amitriptyline HCl (Elavil) 25 mg QHS PO ; Start 09/24/18 at 21:00 Ascorbic Acid (Vitamin C) 500 mg DAILY PO Last administered on 09/24/18at 08:53; Admin Dose 500 MG; Start 09/24/18 at 09:00 Aspirin (Halfprin) 81 mg DAILY PO Last administered on 09/24/18at 08:53; Admin Dose 81 MG; Start 09/24/18 at 09:00 Atorvastatin Calcium (Lipitor) 10 mg QHS PO ; Start 09/24/18 at 21:00 Bisacodyl (Dulcolax Supp) 10 mg DAILY PRN LA CONSTIPATION; Start 09/24/18 at 05:00 Chlorhexidine Gluconate (Peridex) 15 ml Q12 MM Last administered on 09/24/18at 08:51; Admin Dose 15 ML; Start 09/24/18 at 09:00 Cholestyramine Resin (Questran) 1 pkt BID PO Last administered on 09/24/18at 08:56; Admin Dose 1 PKT; Start 09/24/18 at 09:00 Clonazepam (Klonopin) 0.5 mg BID PRN PO ANXIETY Last administered on 09/24/18at 12:17; Admin Dose 0.5 MG; Start 09/24/18 at 05:00 Acetaminophen/ Hydrocodone Bitart (Tea (5/325)) 1 tab BID PRN PO MANAGEMENT; Start 09/24/18 at 05:00 Acetaminophen/ Hydrocodone Bitart (Tea (5/325)) 1 tab Q6 PRN PO PAIN LEVEL 7- 9; Start 09/24/18 at 05:00 Loratadine (Claritin) 10 mg DAILY PO Last administered on 09/24/18 08:52; Admin Dose 10 MG; Start 09/24/18 at 09:00 Magnesium Hydroxide (Milk Of Mag) 30 ml DAILY PRN PO CONSTIPATION; Start 09/24/18 at 05:00 Magnesium Oxide (Mag-Ox 400) 400 mg DAILY PO Last administered on 09/24/18 08:53; Admin Dose 400 MG; Start 09/24/18 at 09:00 Metoprolol Tartrate (Lopressor) 25 mg BID PO Last administered on 09/24/18 08:52; Admin Dose 25 MG; Start 09/24/18 at 09:00 Multivitamins Therapeutic (Theragran) 1 tab DAILY PO Last administered on 09/24/18 08:52; Admin Dose 1 TAB; Start 09/24/18 at 09:00 Eye Lubricant (Artificial Tears Oph) 1 drop TID PRN BOTH EYES DRY EYES; Start 09/24/18 at 05:00 Ranitidine HCl (Zantac) 150 mg Q12 PO Last administered on 09/24/18 08:52; Admin Dose 150 MG; Start 09/24/18 at 09:00 Piperacillin Sod/ Tazobactam Sod 100 ml @ 200 mls/hr Q6 IVPB Last administered on 09/24/18 11:35; Admin Dose 200 MLS/HR; Start 09/24/18 at 06:00 Albuterol/ Ipratropium (Duoneb) 3 ml Q4H RESP THERAPY PRN HHN SHORTNESS OF BREATH Last administered on 09/24/18 07:54; Admin Dose 3 ML; Start 09/24/18 at 05:00 Lorazepam (Ativan) 1 mg Q6H PRN IV ANXIETY; Start 09/24/18 at 05:00 Diagnostic Test (Pha) (Accu-Chek) 1 ea 02 XX ; Start 09/25/18 at 02:00 Miscellaneous Information 1 ea NOTE XX ; Start 09/24/18 at 05:30 Glucose (Glutose) 15 gm Q15M PRN PO DECREASED GLUCOSE; Start 09/24/18 at 05:30 Glucose (Glutose) 22.5 gm Q15M PRN PO DECREASED GLUCOSE; Start 09/24/18 at 05:30 Dextrose (D50w Syringe) 25 ml Q15M PRN IV DECREASED GLUCOSE; Start 09/24/18 at 05:30 Dextrose (D50w Syringe) 50 ml Q15M PRN IV DECREASED GLUCOSE; Start 09/24/18 at 05:30 Glucagon (Glucagen) 1 mg Q15M PRN IM DECREASED GLUCOSE; Start 09/24/18 at 05:30 Glucose (Glutose) 15 gm Q15M PRN BUCCAL DECREASED GLUCOSE; Start 09/24/18 at 05:30 Pantoprazole (Protonix Tab) 40 mg BID@0600,1800 PO Last administered on 09/24/18at 06:55; Admin Dose 40 MG; Start 09/24/18 at 06:00 Linezolid 300 ml @ 300 mls/hr Q12 IVPB Last administered on 09/24/18at 12:18; Admin Dose 300 MLS/HR; Start 09/24/18 at 11:30 Morphine Sulfate (morphine) 2 mg Q4H PRN IV SEVERE PAIN LEVEL 7-10 Last administered on 09/24/18at 13:03; Admin Dose 2 MG; Start 09/24/18 at 13:00 Nitroglycerin (Nitroglycerin (Sl Tab) 0.4 Mg) 1 tab Q5M PRN SL ANGINA; Start 09/24/18 at 13:00 Sodium Chloride 1,000 ml @ 100 mls/hr Q10H IV Last administered on 09/24/18at 13:27; Admin Dose 100 MLS/HR; Start 09/24/18 at 13:00 Enoxaparin Sodium (Lovenox) 40 mg DAILY SC Last administered on 09/24/18at 13:38; Admin Dose 40 MG; Start 09/24/18 at 13:00 EVONNE PICKERING MD Sep 24, 2018 13:59
--- NOTE | 2018-09-24 17:46 | CONS ---
DATE OF ADMISSION: 09/23/2018 DATE OF CONSULTATION: 09/24/2018 TYPE OF CONSULTATION: Infectious disease. REASON FOR CONSULTATION: Antibiotic management. HISTORY OF PRESENT ILLNESS: Dima Tucker is a 58-year-old male who was brought in with sternal chest pain and is being seen for antibiotic management. Past problems include: 1. Ventilator-dependent respiratory failure. 2. Status post tracheostomy. 3. Bipolar disorder. 4. COPD. 5. Hypertension. 6. Atrial fibrillation. 7. Congestive heart failure. 8. Diabetes. The patient presents with chest pain and shortness of breath. PAST MEDICAL HISTORY: As outlined. FAMILY HISTORY: Noncontributory. SOCIAL HISTORY: He does not smoke, drink or abuse drugs. ALLERGIES: VANCOMYCIN. 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 MEDICATIONS: Per chart. REVIEW OF SYSTEMS: Noncontributory. PHYSICAL EXAMINATION: GENERAL: The patient is awake, responsive, in no acute distress. VITAL SIGNS: Stable. T-max 99%. SKIN: Without generalized rash. HEENT: Within normal limits. NECK: Supple. LYMPH NODES: None palpable. CHEST: Decreased breath sounds at the bases. HEART: Without murmur or gallop. ABDOMEN: Soft, nontender, without organosplenomegaly or masses. EXTREMITIES: Without cyanosis, clubbing, or edema. RECTAL AND GENITAL: Deferred. NEUROLOGIC: No focal neurological abnormality. ANCILLARY LABORATORY DATA: White count 17.7, H and H of 12.2 and 39.2, platelet count 259,000. BUN and creatinine 15/0.67. The patient is currently on Levaquin, or at least was started on Levaquin, likely due to healthcare-a ssociated pneumonia. The patient was seen by Dr. Mason in pulmonary consultation. He noted fever , leukocytosis in a patient with advanced emphysema and ventilatory dependent respiratory failure. C hest x-ray and clinical exam not impressive for HCAP, through appropriate to cover. Urine culture is also pending. At this point, the patient has severe bullous emphysema. He has possible retrocardia c airspace disease when compared to prior images. Lungs are hyperinflated suggesting COPD, increased interstitial markings bilaterally, left lower lobe atelectasis versus consolidation in the retrocard iac area. We will continue him on current therapy. I will dictate my findings to the hospitalists a nd to Dr. Mason. Dictated By: ARVIN NOVA MD, JD/NTS Conf#: [id number] DID#: [id number] CC: KHANH SOSA MD;*EndCC*
[2018-09-24] MEDS: ATORVASTATIN 10 MG TAB PO SCH (21:10)
[2018-09-24] MEDS: AMITRIPTYLINE 25 MG TAB PO SCH (21:10)
[2018-09-25] VITALS (23 sets, daily range): BP systolic 108–128; BP diastolic 70–84; PULSE 74–99; RESP 18–24
[2018-09-25] MEDS: PIPER-TAZO 3.375 GM IV (PMX) 100 ML IVPB SCH ×5 (00:23→23:29)
[2018-09-25] MEDS: ALBUTEROL/IPRATROPIUM (NEB) 3 ML AMP HHN PRN ×5 (01:09→19:53)
[2018-09-25] MEDS: morphine 2 MG INJ IV PRN ×6 (01:29→23:30)
[2018-09-25] MEDS: ACCU-CHEK XX SCH (01:49)
[2018-09-25] MEDS: SOD CHLORIDE 0.9% 1,000 ML IV SCH (02:20)
[2018-09-25] MEDS: PANTOPRAZOLE (EC) 40 MG TAB PO SCH ×2 (05:54→18:43)
[2018-09-25] MEDS: CHOLESTYRAMINE 4 GM PACKET PO SCH ×3 (09:00→20:34)
[2018-09-25] MEDS: MAGNESIUM OXIDE 400 MG TAB PO SCH (09:03)
[2018-09-25] MEDS: ASCORBIC ACID 500 MG TAB PO SCH (09:03)
[2018-09-25] MEDS: METOPROLOL 25 MG TAB PO SCH ×2 (09:03→20:35)
[2018-09-25] MEDS: CHLORHEXIDINE GLUCONATE 15 ML UD CUP MM SCH ×2 (09:03→20:33)
[2018-09-25] MEDS: LINEZOLID 600 MG/D5W (PMX) 300 ML IVPB SCH ×2 (09:03→20:34)
[2018-09-25] MEDS: LORATADINE 10 MG TAB PO SCH (09:03)
[2018-09-25] MEDS: RANITIDINE 150 MG TAB PO SCH ×2 (09:03→20:34)
--- NOTE | 2018-09-25 09:03 | PN ---
DATE: 09/25/2018 SUBJECTIVE: The patient is stable, no events noted. The patient is complaining about difficulty elma athing. No other events noted. OBJECTIVE: VITAL SIGNS: Blood pressure is 108/77, pulse 88, temperature 98.0, respiration 18. HEENT: Head is normocephalic. NECK: Supple. HEART: Regular rate. LUNGS: Show diminished breath sounds at the base. ABDOMEN: Soft, nontender to palpation without rebound or guarding. EXTREMITIES: Negative for clubbing, cyanosis, no edema. DERMATOLOGIC: No rashes. MUSCULOSKELETAL: No joint effusions. NEUROLOGIC: No change in exam. MEDICATIONS: The patient's medications have been reviewed. LABORATORY DATA: From 09/25/2018 was reviewed. IMAGING STUDIES: Reviewed. ASSESSMENT AND PLAN: 1. Sepsis secondary to pneumonia. The patient is clinically improving. Continue current antibiotic regimen. Follow up infectious disease, follow up cultures. 2. Ventilator dependent respiratory failure. Vent settings and ABG was reviewed. Continue to monit or. Follow up with pulmonary. 3. Atrial fibrillation, currently in sinus rhythm. Continue to monitor. Place a cardiology consult for evaluation. 4. Dysphagia. Continue a modified diet. 5. Anemia. Monitor hemoglobin and hematocrit levels. 6. History of coronary artery disease. Continue medical management. 7. Diabetes. Continue current insulin regimen. 8. History of chronic obstructive pulmonary disease. Continue current medical management. 9. Chest pain. Etiology is likely musculoskeletal. The patient's troponins were negative x2. Cont inue to monitor. Dictated By: RAMY DOMINGUEZ DO NR/NTS Conf#: [id number] DID#: [id number] CC: DEMARIO BROWN MD; KHANH SOSA MD;*EndCC*
[2018-09-25] MEDS: ASPIRIN (EC) 81 MG TAB PO SCH (09:04)
[2018-09-25] MEDS: MULTIVITAMINS THERAPEUTIC TAB PO SCH (09:04)
[2018-09-25] MEDS: ENOXAPARIN 40 MG/0.4 ML SYG SC SCH (09:20)
--- NOTE | 2018-09-25 10:58 | CONS ---
Consult Date/Type/Reason Admit Date/Time Sep 23, 2018 at 23:15 Initial Consult Date 09/24/18 Type of Consult Pulmonary Date/Time of Note DATE: 09/25/18 TIME: 10:56 Subjective Patient comfortable this morning on mechanical ventilation no respiratory distress Objective Vital Signs Date Temp Pulse Resp B/P (MAP) Pulse Ox O2 O2 Flow FiO2 Time Delivery Rate 09/25/18 89 20 95 30 09:41 09/25/18 98.0 108/77 07:53 (87) 09/24/18 Trach 01:05 Collar Intake and Output 09/24/18 09/24/18 09/25/18 1515:00 23:00 07:00 IntakeIntake Total 100 ml 700 ml 1600 ml OutputOutput Total 1800 ml BalanceBalance 100 ml -1100 ml 1600 ml Exam GENERAL: Well-nourished well-developed gentleman comfortable at rest on mechanical ventilation via tracheostomy VITAL SIGNS: per chart NECK: Supple. No JVD or lymphadenopathy. CARDIAC EXAM: S1, S2. No added sounds or murmurs. CHEST: clear bilaterally, No added sounds, rales or wheezes ABDOMEN: Soft, nontender. No guarding or rebound. EXTREMITIES: No cyanosis, clubbing or edema. NEUROLOGIC: Generalized weakness. No focal deficits. Vent Setting Ventilator Support Mode: AC Fraction of Inspired Oxygen pe: 30 Positive End Expiratory Pressu: 8.0 Results/Medications Result Diagram: 09/25/18 0443 09/25/18 0443 Results 24 hrs Laboratory Tests Test 09/24/18 17:52 09/25/18 01:47 09/25/18 04:43 Urine Color YELLOW Urine Clarity SLIGHTLY CLOUDY A Urine pH 6.0 Urine Specific [place] 1.024 Urine Ketones NEGATIVE Urine Nitrite NEGATIVE Urine Bilirubin NEGATIVE Urine Urobilinogen NEGATIVE Urine Leukocyte Esterase NEGATIVE Urine Microscopic RBC 1 Urine Microscopic WBC 2 Urine Hemoglobin NEGATIVE Urine Glucose NEGATIVE Urine Total Protein NEGATIVE Bedside Glucose 99 White Blood Count 13.1 H Red Blood Count 3.26 L Hemoglobin 9.7 L Hematocrit 31.7 L Mean Corpuscular Volume 97.2 Mean Corpuscular Hemoglobin 29.8 Mean Corpuscular 30.6 L Hemoglobin Concent Red Cell Distribution Width 12.3 Platelet Count 199 # Mean Platelet Volume 9.4 Immature Granulocytes % 0.800 H Neutrophils % 75.9 Lymphocytes % 12.3 L Monocytes % 7.8 Eosinophils % 2.7 Basophils % 0.5 Nucleated Red Blood Cells % 0.0 Immature Granulocytes # 0.100 H Neutrophils # 9.9 H Lymphocytes # 1.6 Monocytes # 1.0 H Eosinophils # 0.4 Basophils # 0.1 Nucleated Red Blood Cells # 0.0 Prothrombin Time 13.5 Prothrombin Time Ratio 1.1 INR International 1.02 Normalized Ratio Activated Partial Thromboplast 31.5 Time Sodium Level 141 Potassium Level 4.4 Chloride Level 98 Carbon Dioxide Level 37 H Anion Gap 6 Blood Urea Nitrogen 17 Creatinine 0.84 Est Glomerular Filtrat > 60 Rate mL/min Glucose Level 85 # Lactic Acid Level 1.7 Calcium Level 8.8 Phosphorus Level 3.5 Magnesium Level 2.0 Medications Current Medications Acetaminophen (Tylenol Tab) 650 mg PRN PRN PO NOTE; Start 09/24/18 at 05:00 Amitriptyline HCl (Elavil) 25 mg QHS PO Last administered on 09/24/18 21:10; Admin Dose 25 MG; Start 09/24/18 at 21:00 Ascorbic Acid (Vitamin C) 500 mg DAILY PO Last administered on 09/25/18 09:03; Admin Dose 500 MG; Start 09/24/18 at 09:00 Aspirin (Halfprin) 81 mg DAILY PO Last administered on 09/25/18 09:04; Admin Dose 81 MG; Start 09/24/18 at 09:00 Atorvastatin Calcium (Lipitor) 10 mg QHS PO Last administered on 09/24/18 21:10; Admin Dose 10 MG; Start 09/24/18 at 21:00 Bisacodyl (Dulcolax Supp) 10 mg DAILY PRN MD CONSTIPATION; Start 09/24/18 at 05:00 Chlorhexidine Gluconate (Peridex) 15 ml Q12 MM Last administered on 09/25/18 09:03; Admin Dose 15 ML; Start 09/24/18 at 09:00 Cholestyramine Resin (Questran) 1 pkt BID PO Last administered on 09/24/18 08:56; Admin Dose 1 PKT; Start 09/24/18 at 09:00 Clonazepam (Klonopin) 0.5 mg BID PRN PO ANXIETY Last administered on 09/24/18 12:17; Admin Dose 0.5 MG; Start 09/24/18 at 05:00 Acetaminophen/ Hydrocodone Bitart ([place] (5/325)) 1 tab BID PRN PO MANAGEMENT; Start 09/24/18 at 05:00 Acetaminophen/ Hydrocodone Bitart ([place] (5/325)) 1 tab Q6 PRN PO PAIN LEVEL 7- 9; Start 09/24/18 at 05:00 Loratadine (Claritin) 10 mg DAILY PO Last administered on 09/25/18 09:03; Admin Dose 10 MG; Start 09/24/18 at 09:00 Magnesium Hydroxide (Milk Of Mag) 30 ml DAILY PRN PO CONSTIPATION; Start 09/24/18 at 05:00 Magnesium Oxide (Mag-Ox 400) 400 mg DAILY PO Last administered on 09/25/18 09:03; Admin Dose 400 MG; Start 09/24/18 at 09:00 Metoprolol Tartrate (Lopressor) 25 mg BID PO Last administered on 09/25/18 09:03; Admin Dose 25 MG; Start 09/24/18 at 09:00 Multivitamins Therapeutic (Theragran) 1 tab DAILY PO Last administered on 09/25/18 09:04; Admin Dose 1 TAB; Start 09/24/18 at 09:00 Eye Lubricant (Artificial Tears Oph) 1 drop TID PRN BOTH EYES DRY EYES; Start 09/24/18 at 05:00 Ranitidine HCl (Zantac) 150 mg Q12 PO Last administered on 09/25/18 09:03; Admin Dose 150 MG; Start 09/24/18 at 09:00 Piperacillin Sod/ Tazobactam Sod 100 ml @ 200 mls/hr Q6 IVPB Last administered on 09/25/18 05:55; Admin Dose 200 MLS/HR; Start 09/24/18 at 06:00 Albuterol/ Ipratropium (Duoneb) 3 ml Q4H RESP THERAPY PRN HHN SHORTNESS OF BREATH Last administered on 09/25/18 09:39; Admin Dose 3 ML; Start 09/24/18 at 05:00 Lorazepam (Ativan) 1 mg Q6H PRN IV ANXIETY; Start 09/24/18 at 05:00 Diagnostic Test (Pha) (Accu-Chek) 1 ea 02 XX Last administered on 09/25/18at 01:49; Admin Dose 1 EA; Start 09/25/18 at 02:00 Miscellaneous Information 1 ea NOTE XX ; Start 09/24/18 at 05:30 Glucose (Glutose) 15 gm Q15M PRN PO DECREASED GLUCOSE; Start 09/24/18 at 05:30 Glucose (Glutose) 22.5 gm Q15M PRN PO DECREASED GLUCOSE; Start 09/24/18 at 05:30 Dextrose (D50w Syringe) 25 ml Q15M PRN IV DECREASED GLUCOSE; Start 09/24/18 at 05:30 Dextrose (D50w Syringe) 50 ml Q15M PRN IV DECREASED GLUCOSE; Start 09/24/18 at 05:30 Glucagon (Glucagen) 1 mg Q15M PRN IM DECREASED GLUCOSE; Start 09/24/18 at 05:30 Glucose (Glutose) 15 gm Q15M PRN BUCCAL DECREASED GLUCOSE; Start 09/24/18 at 05:30 Pantoprazole (Protonix Tab) 40 mg BID@0600,1800 PO Last administered on 09/25/18at 05:54; Admin Dose 40 MG; Start 09/24/18 at 06:00 Linezolid 300 ml @ 300 mls/hr Q12 IVPB Last administered on 09/25/18at 09:03; Admin Dose 300 MLS/HR; Start 09/24/18 at 11:30 Morphine Sulfate (morphine) 2 mg Q4H PRN IV SEVERE PAIN LEVEL 7-10 Last administered on 09/25/18at 10:41; Admin Dose 2 MG; Start 09/24/18 at 13:00 Nitroglycerin (Nitroglycerin (Sl Tab) 0.4 Mg) 1 tab Q5M PRN SL ANGINA Last administered on 09/24/18at 16:00; Admin Dose 1 TAB; Start 09/24/18 at 13:00 Enoxaparin Sodium (Lovenox) 40 mg DAILY SC Last administered on 09/25/18at 09:20; Admin Dose 40 MG; Start 09/24/18 at 13:00 Assessment/Plan Hospital Course (Demo Recall) IMP: 1. Fevers/Leukocytosis--in a patient with advanced emphysema and VDRF s/p numerous prior infections. CXR and clinical exam not impressive for HCAP, though appropriate to cover. 2. VDRF 3. Chronic Hypercapnic Resp Failure--ABG notable for chronic resp acidosis despite vent settings with very high Vt. 4. Afib 5. Recent bacteremia 6. CAD RECS: 1. Bronchodilators with duonebs Q4 hours 2. Broad spectrum abx; with plans to de-escalate pending cultures 3. UA; urine cx; resp cx; and BC x 2 4 continue mechanical ventilation 5. We will review ABG this morning 6. DVT/GI prophylaxis DEMARIO BROWN MD, [facility] Sep 25, 2018 10:58
[2018-09-25] MEDS: clonAZEPAM 0.5 MG TAB PO PRN ×2 (13:10→20:40)
--- NOTE | 2018-09-25 14:54 | CONS ---
Assessment/Plan Assessment/Plan Hospital Course (Demo Recall) Patient is alert looks comfortable denies pain no fevers overnight. WBC 13.1 H&H 9.7 and 31.7 platelets 199 neutrophils 75.9 BUN 17 creatinine 0.84 Indwelling: Trach pack Microbiology: Blood culture on admission grew gram-positive cocci in clusters Antimicrobials: Patient is on Zyvox and Zosyn Allergy: Vancomycin Chest x-ray this morning revealed stable superimposed mild potential alveolar infiltrates throughout the right lung and left lower lobe Physical examination: Morbidly obese well-developed chronically ill-appearing middle-aged white man who is alert in no distress. Head atraumatic normocephalic sclera nonicteric vehicle mucosa dry neck is supple chest rise symmetrical breath sounds diminished bases heart S1-S2 abdomen obese soft bowel sounds present extremities without cyanosis Assessment: 1. Sepsis on admission 2. Acute on chronic hypoxemic respiratory failure with COPD exacerbation and possible pneumonia 3. Bacteremia 4. Coronary artery disease 5. Morbid obesity 6. Diabetes Plan: Patient is stable we will repeat blood cultures continue on current antib iotics, follow pulmonary recommendations Consultation Date/Type/Reason Admit Date/Time Sep 23, 2018 at 23:15 Initial Consult Date 09/24/18 Type of Consult id Date/Time of Note DATE: 09/25/18 TIME: 14:53 Exam/Review of Systems Exam Vitals Vital Signs Date Temp Pulse Resp B/P (MAP) Pulse Ox O2 O2 Flow FiO2 Time Delivery Rate 09/25/18 86 20 96 30 13:19 09/25/18 98.3 112/73 11:57 (86) 09/24/18 Trach 01:05 Collar Intake and Output 09/24/18 09/24/18 09/25/18 1515:00 23:00 07:00 IntakeIntake Total 100 ml 700 ml 1600 ml OutputOutput Total 1800 ml BalanceBalance 100 ml -1100 ml 1600 ml Results Result Diagram: 09/25/18 0443 09/25/18 0443 Results 24hrs Laboratory Tests Test 09/24/18 17:52 09/25/18 01:47 09/25/18 04:43 Urine Color YELLOW Urine Clarity SLIGHTLY CLOUDY A Urine pH 6.0 Urine Specific [place] 1.024 Urine Ketones NEGATIVE Urine Nitrite NEGATIVE Urine Bilirubin NEGATIVE Urine Urobilinogen NEGATIVE Urine Leukocyte Esterase NEGATIVE Urine Microscopic RBC 1 Urine Microscopic WBC 2 Urine Hemoglobin NEGATIVE Urine Glucose NEGATIVE Urine Total Protein NEGATIVE Bedside Glucose 99 White Blood Count 13.1 H Red Blood Count 3.26 L Hemoglobin 9.7 L Hematocrit 31.7 L Mean Corpuscular Volume 97.2 Mean Corpuscular Hemoglobin 29.8 Mean Corpuscular 30.6 L Hemoglobin Concent Red Cell Distribution Width 12.3 Platelet Count 199 # Mean Platelet Volume 9.4 Immature Granulocytes % 0.800 H Neutrophils % 75.9 Lymphocytes % 12.3 L Monocytes % 7.8 Eosinophils % 2.7 Basophils % 0.5 Nucleated Red Blood Cells % 0.0 Immature Granulocytes # 0.100 H Neutrophils # 9.9 H Lymphocytes # 1.6 Monocytes # 1.0 H Eosinophils # 0.4 Basophils # 0.1 Nucleated Red Blood Cells # 0.0 Prothrombin Time 13.5 Prothrombin Time Ratio 1.1 INR International 1.02 Normalized Ratio Activated Partial Thromboplast 31.5 Time Sodium Level 141 Potassium Level 4.4 Chloride Level 98 Carbon Dioxide Level 37 H Anion Gap 6 Blood Urea Nitrogen 17 Creatinine 0.84 Est Glomerular Filtrat > 60 Rate mL/min Glucose Level 85 # Lactic Acid Level 1.7 Calcium Level 8.8 Phosphorus Level 3.5 Magnesium Level 2.0 Medications Medication Current Medications Acetaminophen (Tylenol Tab) 650 mg PRN PRN PO NOTE; Start 09/24/18 at 05:00 Amitriptyline HCl (Elavil) 25 mg QHS PO Last administered on 09/24/18 21:10; Admin Dose 25 MG; Start 09/24/18 at 21:00 Ascorbic Acid (Vitamin C) 500 mg DAILY PO Last administered on 09/25/18 09:03; Admin Dose 500 MG; Start 09/24/18 at 09:00 Aspirin (Halfprin) 81 mg DAILY PO Last administered on 09/25/18 09:04; Admin Dose 81 MG; Start 09/24/18 at 09:00 Atorvastatin Calcium (Lipitor) 10 mg QHS PO Last administered on 09/24/18 21:10; Admin Dose 10 MG; Start 09/24/18 at 21:00 Bisacodyl (Dulcolax Supp) 10 mg DAILY PRN OR CONSTIPATION; Start 09/24/18 at 05:00 Chlorhexidine Gluconate (Peridex) 15 ml Q12 MM Last administered on 09/25/18 09:03; Admin Dose 15 ML; Start 09/24/18 at 09:00 Cholestyramine Resin (Questran) 1 pkt BID PO Last administered on 09/24/18 08 :56; Admin Dose 1 PKT; Start 09/24/18 at 09:00 Clonazepam (Klonopin) 0.5 mg BID PRN PO ANXIETY Last administered on 09/25/18 13:10; Admin Dose 0.5 MG; Start 09/24/18 at 05:00 Acetaminophen/ Hydrocodone Bitart ([place] (5/325)) 1 tab BID PRN PO MANAGEMENT; Start 09/24/18 at 05:00 Acetaminophen/ Hydrocodone Bitart ([place] (5/325)) 1 tab Q6 PRN PO PAIN LEVEL 7- 9; Start 09/24/18 at 05:00 Loratadine (Claritin) 10 mg DAILY PO Last administered on 09/25/18 09:03; Admin Dose 10 MG; Start 09/24/18 at 09:00 Magnesium Hydroxide (Milk Of Mag) 30 ml DAILY PRN PO CONSTIPATION; Start 09/24/18 at 05:00 Magnesium Oxide (Mag-Ox 400) 400 mg DAILY PO Last administered on 09/25/18 09:03; Admin Dose 400 MG; Start 09/24/18 at 09:00 Metoprolol Tartrate (Lopressor) 25 mg BID PO Last administered on 09/25/18 09:03; Admin Dose 25 MG; Start 09/24/18 at 09:00 Multivitamins Therapeutic (Theragran) 1 tab DAILY PO Last administered on 09/25/18 09:04; Admin Dose 1 TAB; Start 09/24/18 at 09:00 Eye Lubricant (Artificial Tears Oph) 1 drop TID PRN BOTH EYES DRY EYES; Start 09/24/18 at 05:00 Ranitidine HCl (Zantac) 150 mg Q12 PO Last administered on 09/25/18 09:03; Admin Dose 150 MG; Start 09/24/18 at 09:00 Piperacillin Sod/ Tazobactam Sod 100 ml @ 200 mls/hr Q6 IVPB Last administered on 09/25/18 11:58; Admin Dose 200 MLS/HR; Start 09/24/18 at 06:00 Albuterol/ Ipratropium (Duoneb) 3 ml Q4H RESP THERAPY PRN HHN SHORTNESS OF BREATH Last administered on 09/25/18 13:19; Admin Dose 3 ML; Start 09/24/18 at 05:00 Lorazepam (Ativan) 1 mg Q6H PRN IV ANXIETY; Start 09/24/18 at 05:00 Diagnostic Test (Pha) (Accu-Chek) 1 ea 02 XX Last administered on 09/25/18at 01:49; Admin Dose 1 EA; Start 09/25/18 at 02:00 Miscellaneous Information 1 ea NOTE XX ; Start 09/24/18 at 05:30 Glucose (Glutose) 15 gm Q15M PRN PO DECREASED GLUCOSE; Start 09/24/18 at 05:30 Glucose (Glutose) 22.5 gm Q15M PRN PO DECREASED GLUCOSE; Start 09/24/18 at 05:30 Dextrose (D50w Syringe) 25 ml Q15M PRN IV DECREASED GLUCOSE; Start 09/24/18 at 05:30 Dextrose (D50w Syringe) 50 ml Q15M PRN IV DECREASED GLUCOSE; Start 09/24/18 at 05:30 Glucagon (Glucagen) 1 mg Q15M PRN IM DECREASED GLUCOSE; Start 09/24/18 at 05:30 Glucose (Glutose) 15 gm Q15M PRN BUCCAL DECREASED GLUCOSE; Start 09/24/18 at 05:30 Pantoprazole (Protonix Tab) 40 mg BID@0600,1800 PO Last administered on 09/25/18 05:54; Admin Dose 40 MG; Start 09/24/18 at 06:00 Linezolid 300 ml @ 300 mls/hr Q12 IVPB Last administered on 09/25/18 09:03; Admin Dose 300 MLS/HR; Start 09/24/18 at 11:30 Morphine Sulfate (morphine) 2 mg Q4H PRN IV SEVERE PAIN LEVEL 7-10 Last administered on 09/25/18at 14:46; Admin Dose 2 MG; Start 09/24/18 at 13:00 Nitroglycerin (Nitroglycerin (Sl Tab) 0.4 Mg) 1 tab Q5M PRN SL ANGINA Last administered on 09/24/18at 16:00; Admin Dose 1 TAB; Start 09/24/18 at 13:00 Enoxaparin Sodium (Lovenox) 40 mg DAILY SC Last administered on 4/8/19at 09:20; Admin Dose 40 MG; Start 09/24/18 at 13:00 NANCY MOREL NP Sep 25, 2018 14:54
--- NOTE | 2018-09-25 16:36 | CONS ---
Assessment/Plan Assessment/Plan Hospital Course (Demo Recall) Atypical chest pain: Myocardial infarction was ruled out with serial cardiac enzyme 2. Pneumonia 3. Bacteremia 4. Hypoxemic respiratory failure status post tracheostomy 5. History of hypertension 6. Sinus tachycardia 7. History of proximal atrial fibrillation: Currently remains sinus rhythm sinus tachycardia 8. History of dysphagia 9. History of COPD 10. Bipolar disorder 11. Anemia Recommendations: Continue with aspirin for now. Beta-toby to be continued and increase as nee ded/tolerated I will order ultrasound lower extremity rule out DVT Antibiotic management as per internal medicine Respiratory care to be continued Statin to be continued as well Thank you for his referral. We will continue following with you BRENTON RIOS MD [facility] Consultation Date/Type/Reason Admit Date/Time Sep 23, 2018 at 23:15 Date of Consultation: Sep 25, 2018 Type of Consult Cardiology Reason for Consultation cp Requesting Provider: KHANH SOSA MD Date/Time of Note DATE: 09/25/18 TIME: 16:25 Hx of Present Illness Interventional cardiology consultation note Chief complaint: Respiratory failure, chest pain Reason for consult: Chest pain History of present illness: Thank you for this referral. Through the room the patient discussion with the staff and physician with multiple extensive review of the old chart. This is a pleasant 58-year-old gentleman multiple [place] medical history surgical tracheostomy on the vent who was brought into the hospital because of possible pneumonia as well as chest pain. Patient states that he has had anterior chest wall pain. Is been going on for some time now and has been continuous. Not related to exertion or activity although patient is basically bedbound. Is not related to breathing either. Patient chest is also short pneumonia as there has been treated for it PAST MEDICAL HISTORY: As stated above, history of ventilator dependent respiratory failure, history of COPD, history of hypertension, history of P- AFib/sinus tachycardia, history of bipolar disorder, history of chronic pain syndrome, history of chronic abdominal pain. PAST SURGICAL HISTORY: Status post PEG, status post PEG removal, status post trach. FAMILY HISTORY: No family history of early coronary artery disease SOCIAL HISTORY: Positive for drug use in the past. ALLERGIES: NO KNOWN DRUG ALLERGIES. MEDICATIONS: Was reviewed as per medical reconciliation which were personally reviewed. Review of system: Patient denies all others except for above-mentioned Past Medical History Home Meds Reported Medications Ascorbic Acid* (Vitamin C*) 500 Mg Capsule.sa, 500 MG PO DAILY, CAP 08/19/17 Cran/Vitc/Mannose/Inulin/Brom (Uti-Stat Liquid) 3,875 Mg/30 Ml Liquid, 3875 MG PO DAILY 08/19/17 Acetaminophen* (Acetaminophen*) 650 Mg Tablet, 650 MG PO FOR TRACH CHANGE, #30 TAB GIVE 30 MIN PRIOR TO TRACH CHANGE 08/19/17 Ranitidine Hcl* (Ranitidine Hcl*) 150 Mg Tablet, 150 MG PO Q12, #60 TAB 08/19/17 Omeprazole* (Omeprazole*) 20 Mg Capsule.dr, 20 MG PO BID, #60 CAP 08/19/17 Hydrocodone/Acetaminophen (Bison 5-325 Tablet) 1 Each Tablet, 1 EACH PO BID PRN for MANAGEMENT, TAB 08/19/17 Hydrocodone/Acetaminophen (Bison 5-325 Tablet) 1 Each Tablet, 1 EACH PO Q6 PRN for PAIN LEVEL 7-9, TAB 08/19/17 Multivitamins* (Theragran*) 1 Tab Tab, 1 TAB PO DAILY, TAB 08/19/17 Magnesium Hydroxide* (Milk Of Magnesia*) 400 Mg/5 Ml Oral.susp, 30 ML PO DAILY PRN for CONSTIPATION, ML 08/19/17 Metoprolol Tartrate* (Lopressor*) 25 Mg Tablet, 25 MG PO BID, #60 TAB HOLD FOR SBP <110 OR HR <60 08/19/17 Magnesium Oxide* (Magnesium Oxide*) 400 Mg Tablet, 400 MG PO DAILY, TAB 08/19/17 Loratadine* (Loratadine*) 10 Mg Tablet, 10 MG PO DAILY, #30 TAB 08/19/17 Clonazepam* (Klonopin*) 0.5 Mg Tab, 0.5 MG PO BID PRN for ANXIETY, TAB 08/19/17 Amitriptyline Hcl* (Amitriptyline Hcl*) 25 Mg Tablet, 25 MG PO QHS, #30 TAB 08/19/17 Bisacodyl (Dulcolax) 10 Mg Supp.rect, 10 MG RC DAILY PRN for CONSTIPATION, SUPP.RECT 08/19/17 Cholestyramine* (Questran* Powder) 378 Gm Powder, 4 GM PO BID, EA 08/19/17 Chlorhexidine Gluconate (Peridex) 473 Ml Mouthwash, 15 ML MM Q12, BOTTLE 08/19/17 Atorvastatin Calcium (Atorvastatin Calcium) 10 Mg Tablet, 10 MG PO QHS, #30 TAB 08/19/17 Aspirin (Low Dose Aspirin) 81 Mg Tablet.dr, 81 MG PO DAILY, #30 TAB 08/19/17 Polyvinyl Alcohol (Tears Again) 15 Ml Drops, 1 DRP BOTH EYES TID PRN for DRY EYES, BOTTLE 08/19/17 Albuterol Sulfate* (Albuterol Sulfate* Neb) 0.083%-3 Ml Neb, 2.5 MG NEB Q6 PRN for WHEEZING AND SOB, #30 VIAL 08/19/17 Albuterol Sulfate* (Albuterol Sulfate* Neb) 0.083%-3 Ml Neb, 2.5 MG NEB Q3H PRN for WHEEZING AND SOB, #30 VIAL 08/19/17 Medications Current Medications Acetaminophen (Tylenol Tab) 650 mg PRN PRN PO NOTE; Start 09/24/18 at 05:00 Amitriptyline HCl (Elavil) 25 mg QHS PO Last administered on 09/24/18 21:10; Admin Dose 25 MG; Start 09/24/18 at 21:00 Ascorbic Acid (Vitamin C) 500 mg DAILY PO Last administered on 09/25/18 09:03; Admin Dose 500 MG; Start 09/24/18 at 09:00 Aspirin (Halfprin) 81 mg DAILY PO Last administered on 09/25/18 09:04; Admin Dose 81 MG; Start 09/24/18 at 09:00 Atorvastatin Calcium (Lipitor) 10 mg QHS PO Last administered on 09/24/18 21:10; Admin Dose 10 MG; Start 09/24/18 at 21:00 Bisacodyl (Dulcolax Supp) 10 mg DAILY PRN [place] CONSTIPATION; Start 09/24/18 at 05:00 Chlorhexidine Gluconate (Peridex) 15 ml Q12 MM Last administered on 09/25/18 09:03; Admin Dose 15 ML; Start 09/24/18 at 09:00 Cholestyramine Resin (Questran) 1 pkt BID PO Last administered on 09/24/18 08:56; Admin Dose 1 PKT; Start 09/24/18 at 09:00 Clonazepam (Klonopin) 0.5 mg BID PRN PO ANXIETY Last administered on 09/25/18 13:10; Admin Dose 0.5 MG; Start 09/24/18 at 05:00 Acetaminophen/ Hydrocodone Bitart (Bison (5/325)) 1 tab BID PRN PO MANAGEMENT; Start 09/24/18 at 05:00 Acetaminophen/ Hydrocodone Bitart (Bison (5/325)) 1 tab Q6 PRN PO PAIN LEVEL 7- 9; Start 09/24/18 at 05:00 Loratadine (Claritin) 10 mg DAILY PO Last administered on 09/25/18 09:03; Admin Dose 10 MG; Start 09/24/18 at 09:00 Magnesium Hydroxide (Milk Of Mag) 30 ml DAILY PRN PO CONSTIPATION; Start 09/24/18 at 05:00 Magnesium Oxide (Mag-Ox 400) 400 mg DAILY PO Last administered on 09/25/18 09:03; Admin Dose 400 MG; Start 09/24/18 at 09:00 Metoprolol Tartrate (Lopressor) 25 mg BID PO Last administered on 09/25/18 09:03; Admin Dose 25 MG; Start 09/24/18 at 09:00 Multivitamins Therapeutic (Theragran) 1 tab DAILY PO Last administered on 09/25/18 09:04; Admin Dose 1 TAB; Start 09/24/18 at 09:00 Eye Lubricant (Artificial Tears Oph) 1 drop TID PRN BOTH EYES DRY EYES; Start 09/24/18 at 05:00 Ranitidine HCl (Zantac) 150 mg Q12 PO Last administered on 09/25/18 09:03; Admin Dose 150 MG; Start 09/24/18 at 09:00 Piperacillin Sod/ Tazobactam Sod 100 ml @ 200 mls/hr Q6 IVPB Last administered on 09/25/18 11:58; Admin Dose 200 MLS/HR; Start 09/24/18 at 06:00 Albuterol/ Ipratropium (Duoneb) 3 ml Q4H RESP THERAPY PRN HHN SHORTNESS OF BREATH Last administered on 09/25/18 13:19; Admin Dose 3 ML; Start 09/24/18 at 05:00 Lorazepam (Ativan) 1 mg Q6H PRN IV ANXIETY; Start 09/24/18 at 05:00 Diagnostic Test (Pha) (Accu-Chek) 1 ea 02 XX Last administered on 4/8/19at 01:49; Admin Dose 1 EA; Start 09/25/18 at 02:00 Miscellaneous Information 1 ea NOTE XX ; Start 09/24/18 at 05:30 Glucose (Glutose) 15 gm Q15M PRN PO DECREASED GLUCOSE; Start 09/24/18 at 05:30 Glucose (Glutose) 22.5 gm Q15M PRN PO DECREASED GLUCOSE; Start 09/24/18 at 05:30 Dextrose (D50w Syringe) 25 ml Q15M PRN IV DECREASED GLUCOSE; Start 09/24/18 at 05:30 Dextrose (D50w Syringe) 50 ml Q15M PRN IV DECREASED GLUCOSE; Start 09/24/18 at 05:30 Glucagon (Glucagen) 1 mg Q15M PRN IM DECREASED GLUCOSE; Start 09/24/18 at 05:30 Glucose (Glutose) 15 gm Q15M PRN BUCCAL DECREASED GLUCOSE; Start 09/24/18 at 05:30 Pantoprazole (Protonix Tab) 40 mg BID@0600,1800 PO Last administered on 09/25/18at 05:54; Admin Dose 40 MG; Start 09/24/18 at 06:00 Linezolid 300 ml @ 300 mls/hr Q12 IVPB Last administered on 09/25/18 09:03; Admin Dose 300 MLS/HR; Start 09/24/18 at 11:30 Morphine Sulfate (morphine) 2 mg Q4H PRN IV SEVERE PAIN LEVEL 7-10 Last administered on 09/25/18 14:46; Admin Dose 2 MG; Start 09/24/18 at 13:00 Nitroglycerin (Nitroglycerin (Sl Tab) 0.4 Mg) 1 tab Q5M PRN SL ANGINA Last administered on 09/24/18at 16:00; Admin Dose 1 TAB; Start 09/24/18 at 13:00 Enoxaparin Sodium (Lovenox) 40 mg DAILY SC Last administered on 09/25/18 09:20; Admin Dose 40 MG; Start 09/24/18 at 13:00 Allergies: Coded Allergies: vancomycin (Verified Allergy, Unknown, RASHES, 08/19/17) VERIFIED "RASHES", BUT MOST PROBABLY "RED [place]". Past Surgical History Past Surgical Hx: other Social History Alcohol Use: none Smoking Status: Former smoker Drug Use: none Exam/Review of Systems Vital Signs Vitals Vital Signs Date Temp Pulse Resp B/P (MAP) Pulse Ox O2 O2 Flow FiO2 Time Delivery Rate 09/25/18 98.4 90 20 128/83 98 16:09 (98) 09/25/18 30 13:19 09/24/18 Trach 01:05 Collar Intake and Output 09/24/18 09/24/18 09/25/18 1515:00 23:00 07:00 IntakeIntake Total 100 ml 700 ml 1600 ml OutputOutput Total 1800 ml BalanceBalance 100 ml -1100 ml 1600 ml Exam Exam General: Obese gentleman in no acute distress HEENT: NC/AT. pupils are equal. round. NECK: status post tracheostomy no stridor. CV: RRR. systolic murmur; no gallop or rubs. PULM: no wheezing or rhonchi. Chest: No reproducible chest wall tenderness GI: SOFT, NT, ND, no rebound or guarding Extremity: trace B/L LE edema. no clubbing. neuro: awake and alert, Psych: calm and pleasant rectal: deferred EKG shows sinus tachycardia heart rate of 130 Chest x-ray done in the ER showed:. Calcified atherosclerosis in the aorta. Scattered atelectasis in both lungs. Stable superimposed mild potential alveolar infiltrates throughout the right lung and left lower lobe. Diffuse mild interstitial prominence in both lungs. Interstitial prominence could be chronic or reflect mild interstitial edema. Labs Result Diagram: 09/25/183 09/25/18442 Results 24hrs Laboratory Tests Test 09/24/18 17:52 09/25/18 01:47 09/25/18 04:43 Urine Color YELLOW Urine Clarity SLIGHTLY CLOUDY A Urine pH 6.0 Urine Specific [place] 1.024 Urine Ketones NEGATIVE Urine Nitrite NEGATIVE Urine Bilirubin NEGATIVE Urine Urobilinogen NEGATIVE Urine Leukocyte Esterase NEGATIVE Urine Microscopic RBC 1 Urine Microscopic WBC 2 Urine Hemoglobin NEGATIVE Urine Glucose NEGATIVE Urine Total Protein NEGATIVE Bedside Glucose 99 White Blood Count 13.1 H Red Blood Count 3.26 L Hemoglobin 9.7 L Hematocrit 31.7 L Mean Corpuscular Volume 97.2 Mean Corpuscular Hemoglobin 29.8 Mean Corpuscular 30.6 L Hemoglobin Concent Red Cell Distribution Width 12.3 Platelet Count 199 # Mean Platelet Volume 9.4 Immature Granulocytes % 0.800 H Neutrophils % 75.9 Lymphocytes % 12.3 L Monocytes % 7.8 Eosinophils % 2.7 Basophils % 0.5 Nucleated Red Blood Cells % 0.0 Immature Granulocytes # 0.100 H Neutrophils # 9.9 H Lymphocytes # 1.6 Monocytes # 1.0 H Eosinophils # 0.4 Basophils # 0.1 Nucleated Red Blood Cells # 0.0 Prothrombin Time 13.5 Prothrombin Time Ratio 1.1 INR International 1.02 Normalized Ratio Activated Partial Thromboplast 31.5 Time Sodium Level 141 Potassium Level 4.4 Chloride Level 98 Carbon Dioxide Level 37 H Anion Gap 6 Blood Urea Nitrogen 17 Creatinine 0.84 Est Glomerular Filtrat > 60 Rate mL/min Glucose Level 85 # Lactic Acid Level 1.7 Calcium Level 8.8 Phosphorus Level 3.5 Magnesium Level 2.0 Medications Medications Current Medications Acetaminophen (Tylenol Tab) 650 mg PRN PRN PO NOTE; Start 09/24/18 at 05:00 Amitriptyline HCl (Elavil) 25 mg QHS PO Last administered on 09/24/18 21:10; Admin Dose 25 MG; Start 09/24/18 at 21:00 Ascorbic Acid (Vitamin C) 500 mg DAILY PO Last administered on 09/25/18 09:03; Admin Dose 500 MG; Start 09/24/18 at 09:00 Aspirin (Halfprin) 81 mg DAILY PO Last administered on 09/25/18 09:04; Admin Dose 81 MG; Start 09/24/18 at 09:00 Atorvastatin Calcium (Lipitor) 10 mg QHS PO Last administered on 09/24/18 21:10; Admin Dose 10 MG; Start 09/24/18 at 21:00 Bisacodyl (Dulcolax Supp) 10 mg DAILY PRN [place] CONSTIPATION; Start 09/24/18 at 05:00 Chlorhexidine Gluconate (Peridex) 15 ml Q12 MM Last administered on 09/25/18 09:03; Admin Dose 15 ML; Start 09/24/18 at 09:00 Cholestyramine Resin (Questran) 1 pkt BID PO Last administered on 09/24/18 08:56; Admin Dose 1 PKT; Start 09/24/18 at 09:00 Clonazepam (Klonopin) 0.5 mg BID PRN PO ANXIETY Last administered on 09/25/18 13:10; Admin Dose 0.5 MG; Start 09/24/18 at 05:00 Acetaminophen/ Hydrocodone Bitart (Bison (5/325)) 1 tab BID PRN PO MANAGEMENT; Start 09/24/18 at 05:00 Acetaminophen/ Hydrocodone Bitart (Bison (5/325)) 1 tab Q6 PRN PO PAIN LEVEL 7- 9; Start 09/24/18 at 05:00 Loratadine (Claritin) 10 mg DAILY PO Last administered on 09/25/18 09:03; Admin Dose 10 MG; Start 09/24/18 at 09:00 Magnesium Hydroxide (Milk Of Mag) 30 ml DAILY PRN PO CONSTIPATION; Start 09/24/18 at 05:00 Magnesium Oxide (Mag-Ox 400) 400 mg DAILY PO Last administered on 09/25/18 09:03; Admin Dose 400 MG; Start 09/24/18 at 09:00 Metoprolol Tartrate (Lopressor) 25 mg BID PO Last administered on 09/25/18 09:03; Admin Dose 25 MG; Start 09/24/18 at 09:00 Multivitamins Therapeutic (Theragran) 1 tab DAILY PO Last administered on 09/25/18 09:04; Admin Dose 1 TAB; Start 09/24/18 at 09:00 Eye Lubricant (Artificial Tears Oph) 1 drop TID PRN BOTH EYES DRY EYES; Start 09/24/18 at 05:00 Ranitidine HCl (Zantac) 150 mg Q12 PO Last administered on 09/25/18 09:03; Adm in Dose 150 MG; Start 09/24/18 at 09:00 Piperacillin Sod/ Tazobactam Sod 100 ml @ 200 mls/hr Q6 IVPB Last administered on 09/25/18 11:58; Admin Dose 200 MLS/HR; Start 09/24/18 at 06:00 Albuterol/ Ipratropium (Duoneb) 3 ml Q4H RESP THERAPY PRN HHN SHORTNESS OF BREATH Last administered on 09/25/18 13:19; Admin Dose 3 ML; Start 09/24/18 at 05:00 Lorazepam (Ativan) 1 mg Q6H PRN IV ANXIETY; Start 09/24/18 at 05:00 Diagnostic Test (Pha) (Accu-Chek) 1 ea 02 XX Last administered on 09/25/18 01:49; Admin Dose 1 EA; Start 09/25/18 at 02:00 Miscellaneous Information 1 ea NOTE XX ; Start 09/24/18 at 05:30 Glucose (Glutose) 15 gm Q15M PRN PO DECREASED GLUCOSE; Start 09/24/18 at 05:30 Glucose (Glutose) 22.5 gm Q15M PRN PO DECREASED GLUCOSE; Start 09/24/18 at 05:30 Dextrose (D50w Syringe) 25 ml Q15M PRN IV DECREASED GLUCOSE; Start 09/24/18 at 05:30 Dextrose (D50w Syringe) 50 ml Q15M PRN IV DECREASED GLUCOSE; Start 09/24/18 at 05:30 Glucagon (Glucagen) 1 mg Q15M PRN IM DECREASED GLUCOSE; Start 09/24/18 at 05:30 Glucose (Glutose) 15 gm Q15M PRN BUCCAL DECREASED GLUCOSE; Start 09/24/18 at 05:30 Pantoprazole (Protonix Tab) 40 mg BID@0600,1800 PO Last administered on 09/25/18 05:54; Admin Dose 40 MG; Start 09/24/18 at 06:00 Linezolid 300 ml @ 300 mls/hr Q12 IVPB Last administered on 09/25/18 09:03; Admin Dose 300 MLS/HR; Start 09/24/18 at 11:30 Morphine Sulfate (morphine) 2 mg Q4H PRN IV SEVERE PAIN LEVEL 7-10 Last administered on 09/25/18at 14:46; Admin Dose 2 MG; Start 09/24/18 at 13:00 Nitroglycerin (Nitroglycerin (Sl Tab) 0.4 Mg) 1 tab Q5M PRN SL ANGINA Last administered on 09/24/18 16:00; Admin Dose 1 TAB; Start 09/24/18 at 13:00 Enoxaparin Sodium (Lovenox) 40 mg DAILY SC Last administered on 09/25/18 09:20; Admin Dose 40 MG; Start 09/24/18 at 13:00 BRENTON RIOS MD Sep 25, 2018 16:36
[2018-09-25] MEDS: HYDROCODONE/APAP (5/325) TAB PO PRN (16:44)
--- NOTE | 2018-09-25 18:36 | RADRPT ---
Echocardiogram Report Patient Name: SEJAL JADEPatient ID: [id number] : 1960 (58y 5m)Study Date: 09/25/2018 4:40:24 PM Gender: MAccession #: [id number] Tech: Kevin Rooney [facility] Location: [id number]- Ref.Physician: BRENTON MURPHY Height(Cm): BSA: Weight(Kg): Quality: Technically Difficult StudyAccount #: Procedures: Echocardiographic Report: Transthoracic echocardiogram with complete 2D, M-Mode, and doppler examination. Indications: Chest Pain. Measurements: 2D/M Mode Doppler Measurement Value Normal Range Measurement Value Normal Range LVIDd 2D 4.5 [ 4.2 - 5.8 ] cm AV Peak Merlin 1.2 [ 100.0 - 170.0 ] cm/sec LVIDs 2D 3.1 [ 2.5 - 4.0 ] cm AV Peak PG 6.0 [ 2.0 - 9.0 ] mmHg LVPWd 2D 1.3 [ 0.6 - 1.0 ] cm LVOT Peak Merlin 0.7 [ 70.0 - 110.0 ] cm/sec IVSd 2D 1.3 [ 0.6 - 1.0 ] cm LVOT Peak PG 2.0 [ 2.0 - 6.0 ] mmHg AoR Diam 2D 1.9 [ 2.6 - 3.4 ] cm MV E Peak Merlin 0.5 [ 60.0 - 130.0 ] cm/sec EDV 2D 93.4 [ 62.0 - 150.0 ] ml MV A Peak Merlin 0.4 [ 100.0 - 120.0 ] cm/sec ESV 2D 37.6 [ 21.0 - 61.0 ] ml MV E/A 1.2 [ 0.8 - 1.5 ] ratio EF 2D 59.7 [ 52.0 - 72.0 ] percent MV Decel Time 180 [ 104 - 258 ] msec LA Dimen 2D 3.8 [ 3.0 - 4.0 ] cm Lat E` Merlin 0.0 [ 10.0 - 15.0 ] cm/sec Lateral E/E` 14.7 [ 1.0 - 2.0 ] ratio MV E/A 1.2 [ 0.8 - 1.5 ] ratio TR Peak Merlin 1.8 [ 100.0 - 280.0 ] cm/sec TR Peak PG 13.0 mmHg RVSP 23.0 [ 10.0 - 36.0 ] mmHg Findings: Left Ventricle: Overall, normal left ventricular systolic function. Not all segments visualized. Normal left ventricular cavity size. Left ventricle not well visualized. Mild concentric left ventricular hypertrophy. Ejection fraction is visually estimated at 60 %. Abnormal Diastolic Function. Right Ventricle: Normal right ventricular size. Normal right ventricular systolic function. Left Atrium: Not well visualized. Right Atrium: The right atrium is normal in size. Mitral Valve: Mitral valve is not well visualized. Mild mitral leaflet calcification. Mild mitral annular calcification. Trace mitral regurgitation. Aortic Valve: Aortic valve not well visualized. No hemodynamically significant aortic stenosis by doppler. Aortic cusps appear mildly calcified. Tricuspid Valve: Normal appearance of the tricuspid valve. Estimated peak PA systolic pressure 23 mmHg. There is trace tricuspid regurgitation. Pericardium: Normal pericardium with no significant pericardial effusion. Aorta: Normal aortic root. IVC: Normal size and normal respiratory collapse consistent with normal right atrial pressure. Conclusions: Overall, normal left ventricular systolic function. Not all segments visualized. Normal left ventricular cavity size. Left ventricle not well visualized. Mild concentric left ventricular hypertrophy. Ejection fraction is visually estimated at 60 %. Abnormal Diastolic Function. Mitral valve is not well visualized. Mild mitral leaflet calcification. Mild mitral annular calcification. Trace mitral regurgitation. Aortic valve not well visualized. No hemodynamically significant aortic stenosis by doppler. Aortic cusps appear mildly calcified. Normal appearance of the tricuspid valve. Estimated peak PA systolic pressure 23 mmHg. There is trace tricuspid regurgitation. VERY SUBOPTIMAL. PT agitated and noncooperative during the study. Electronically Signed By: Brenton Murphy 2018-09-25 18:35:58 PDT
[2018-09-25] MEDS: ATORVASTATIN 10 MG TAB PO SCH (20:34)
[2018-09-25] MEDS: AMITRIPTYLINE 25 MG TAB PO SCH (20:34)
[2018-09-25] MEDS: LORAZEPAM 2 MG INJ IV PRN (20:40)
[2018-09-26] VITALS (22 sets, daily range): BP systolic 106–139; BP diastolic 70–81; PULSE 76–100; RESP 18–22
[2018-09-26] MEDS: ALBUTEROL/IPRATROPIUM (NEB) 3 ML AMP HHN PRN ×6 (01:03→22:44)
[2018-09-26] MEDS: ACCU-CHEK XX SCH (02:00)
[2018-09-26] MEDS: PANTOPRAZOLE (EC) 40 MG TAB PO SCH ×2 (06:05→18:28)
[2018-09-26] MEDS: PIPER-TAZO 3.375 GM IV (PMX) 100 ML IVPB SCH ×2 (06:05→11:49)
[2018-09-26] MEDS: RANITIDINE 150 MG TAB PO SCH ×2 (08:24→20:22)
[2018-09-26] MEDS: ASPIRIN (EC) 81 MG TAB PO SCH (08:24)
[2018-09-26] MEDS: LORATADINE 10 MG TAB PO SCH (08:25)
[2018-09-26] MEDS: MAGNESIUM OXIDE 400 MG TAB PO SCH (08:25)
[2018-09-26] MEDS: METOPROLOL 25 MG TAB PO SCH ×2 (08:25→20:21)
[2018-09-26] MEDS: MULTIVITAMINS THERAPEUTIC TAB PO SCH (08:25)
[2018-09-26] MEDS: morphine 2 MG INJ IV PRN (08:27)
[2018-09-26] MEDS: LINEZOLID 600 MG/D5W (PMX) 300 ML IVPB SCH ×2 (08:27→21:30)
[2018-09-26] MEDS: CHOLESTYRAMINE 4 GM PACKET PO SCH ×2 (08:27→20:22)
[2018-09-26] MEDS: CHLORHEXIDINE GLUCONATE 15 ML UD CUP MM SCH ×2 (08:27→20:20)
[2018-09-26] MEDS: ASCORBIC ACID 500 MG TAB PO SCH (08:34)
[2018-09-26] MEDS: ENOXAPARIN 40 MG/0.4 ML SYG SC SCH (08:36)
--- NOTE | 2018-09-26 09:09 | PN ---
DATE: 09/26/2018 SUBJECTIVE: The patient complained about anxiety. Patient also complained about difficulty breathin g. No other events noted. No hemoptysis, hematemesis or hematochezia. OBJECTIVE: VITAL SIGNS: Blood pressure is 125/70, pulse 97, respirations 18, temperature 98.0. HEENT: Head is normocephalic. NECK: Supple. HEART: Regular rate. LUNGS: Show diminished breath sounds at base. ABDOMEN: Soft, nontender to palpation without rebound or guarding. EXTREMITIES: Negative for clubbing, cyanosis, no edema. DERMATOLOGIC: No rashes. MUSCULOSKELETAL: No joint effusion. NEUROLOGIC: No change in exam. MEDICATIONS: Reviewed. LABORATORY DATA: Has been reviewed. ASSESSMENT AND PLAN: 1. Sepsis secondary to pneumonia, bacteremia. Patient is clinically improving. Continue antibiotic regimen. 2. Ventilator dependent respiratory failure. Vent settings and ABG was reviewed. Continue to monit or. Follow up with pulmonary. 3. Atrial fibrillation, currently in sinus rhythm. Continue current medical management. Follow up with cardiology. 4. Dysphagia. Continue modified diet. 5. Anemia. Continue to monitor hemoglobin and hematocrit levels. 6. History of coronary artery disease. Continue medical management. 7. Diabetes. Continue current insulin regimen. 8. Advanced chronic obstructive pulmonary disease. Continue current treatment plan. Continue nebul izers. Continue vent management. 9. Chest pain, likely musculoskeletal, resolved. DISPOSITION: We will place the patient for Carlos evaluation. Dictated By: RAMY DOMINGUEZ DO NR/NTS Conf#: [id number] DID#: [id number] CC: KHANH SOSA MD;*EndCC*
--- NOTE | 2018-09-26 10:30 | CONS ---
Consult Date/Type/Reason Admit Date/Time Sep 23, 2018 at 23:15 Initial Consult Date 09/25/18 Type of Consultation: cv Requesting Provider: KHANH SOSA MD Date/Time of Note DATE: 09/26/18 TIME: 10:28 Subjective Cardiology follow-up progress note Subjective: Discussed with the staff telemetry was reviewed patient remained sinus rhythm. Heart rate appears to be improving now. Patient is status post tracheostomy stable. No reports of chest pain or pressure at the moment. Objective: General: Obese gentleman in no acute distress HEENT: NC/AT. pupils are equal. round. NECK: status post tracheostomy no stridor. CV: RRR. systolic murmur; no gallop or rubs. PULM: no wheezing or rhonchi. Chest: No reproducible chest wall tenderness GI: SOFT, NT, ND, no rebound or guarding Extremity: trace B/L LE edema. no clubbing. neuro: Comfortably sleeping now Psych: calm at the moment rectal: deferred EKG shows sinus tachycardia heart rate of 130 Chest x-ray done in the ER showed:. Calcified atherosclerosis in the aorta. Scattered atelectasis in both lungs. Stable superimposed mild potential alveolar infiltrates throughout the right lung and left lower lobe. Diffuse mild interstitial prominence in both lungs. Interstitial prominence could be chronic or reflect mild interstitial edema. Echocardiogram done 09/25/2018 was personally reviewed which shows: Overall, normal left ventricular systolic function. Not all segments visualized. Normal left ventricular cavity size. Left ventricle not well visualized. Mild concentric left ventricular hypertrophy. Ejection fraction is visually estimated at 60 %. Abnormal Diastolic Function. Mitral valve is not well visualized. Mild mitral leaflet calcification. Mild mitral annular calcification. Trace mitral regurgitation. Aortic valve not well visualized. No hemodynamically significant aortic stenosis by doppler. Aortic cusps appear mildly calcified. Normal appearance of the tricuspid valve. Estimated peak PA systolic pressure 23 mmHg. There is trace tricuspid regurgitation. VERY SUBOPTIMAL. PT agitated and noncooperative during the study. Objective Vitals Vital Signs Date Temp Pulse Resp B/P (MAP) Pulse Ox O2 O2 Flow FiO2 Time Delivery Rate 09/26/18 40 09:16 09/26/18 89 08:01 09/26/18 98.0 18 125/70 99 07:40 (88) 09/24/18 Trach 01:05 Collar Intake and Output 09/25/18 09/25/18 09/26/18 1515:00 23:00 07:00 IntakeIntake Total 400 ml 700 ml 500 ml OutputOutput Total 1900 ml 700 ml BalanceBalance 400 ml -1200 ml -200 ml Results/Medications Result Diagram: 09/26/18 0542 09/26/18 0542 Results 24 hrs Laboratory Tests Test 09/26/18 05:42 White Blood Count 11.2 H Red Blood Count 3.29 L Hemoglobin 9.7 L Hematocrit 31.5 L Mean Corpuscular Volume 95.7 Mean Corpuscular Hemoglobin 29.5 Mean Corpuscular Hemoglobin Concent 30.8 L Red Cell Distribution Width 12.4 Platelet Count 192 Mean Platelet Volume 9.6 Immature Granulocytes % 0.800 H Neutrophils % 74.9 Lymphocytes % 12.4 L Monocytes % 7.7 Eosinophils % 3.8 Basophils % 0.4 Nucleated Red Blood Cells % 0.0 Immature Granulocytes # 0.090 H Neutrophils # 8.4 H Lymphocytes # 1.4 Monocytes # 0.9 Eosinophils # 0.4 Basophils # 0.1 Nucleated Red Blood Cells # 0.0 Sodium Level 142 Potassium Level 3.8 Chloride Level 99 Carbon Dioxide Level 37 H Anion Gap 6 Blood Urea Nitrogen 15 Creatinine 0.82 Est Glomerular Filtrat Rate mL/min > 60 Glucose Level 83 Calcium Level 8.8 Phosphorus Level 2.9 Magnesium Level 2.3 Home Meds Reported Medications Ascorbic Acid* (Vitamin C*) 500 Mg Capsule.sa, 500 MG PO DAILY, CAP 08/19/17 Cran/Vitc/Mannose/Inulin/Brom (Uti-Stat Liquid) 3,875 Mg/30 Ml Liquid, 3875 MG PO DAILY 08/19/17 Acetaminophen* (Acetaminophen*) 650 Mg Tablet, 650 MG PO FOR TRACH CHANGE, #30 TAB GIVE 30 MIN PRIOR TO TRACH CHANGE 08/19/17 Ranitidine Hcl* (Ranitidine Hcl*) 150 Mg Tablet, 150 MG PO Q12, #60 TAB 08/19/17 Omeprazole* (Omeprazole*) 20 Mg Capsule.dr, 20 MG PO BID, #60 CAP 08/19/17 Hydrocodone/Acetaminophen ([place] 5-325 Tablet) 1 Each Tablet, 1 EACH PO BID PRN for MANAGEMENT, TAB 08/19/17 Hydrocodone/Acetaminophen ([place] 5-325 Tablet) 1 Each Tablet, 1 EACH PO Q6 PRN for PAIN LEVEL 7-9, TAB 08/19/17 Multivitamins* (Theragran*) 1 Tab Tab, 1 TAB PO DAILY, TAB 08/19/17 Magnesium Hydroxide* (Milk Of Magnesia*) 400 Mg/5 Ml Oral.susp, 30 ML PO DAILY PRN for CONSTIPATION, ML 08/19/17 Metoprolol Tartrate* (Lopressor*) 25 Mg Tablet, 25 MG PO BID, #60 TAB HOLD FOR SBP <110 OR HR <60 08/19/17 Magnesium Oxide* (Magnesium Oxide*) 400 Mg Tablet, 400 MG PO DAILY, TAB 08/19/17 Loratadine* (Loratadine*) 10 Mg Tablet, 10 MG PO DAILY, #30 TAB 08/19/17 Clonazepam* (Klonopin*) 0.5 Mg Tab, 0.5 MG PO BID PRN for ANXIETY, TAB 08/19/17 Amitriptyline Hcl* (Amitriptyline Hcl*) 25 Mg Tablet, 25 MG PO QHS, #30 TAB 08/19/17 Bisacodyl (Dulcolax) 10 Mg Supp.rect, 10 MG RC DAILY PRN for CONSTIPATION, SUPP.RECT 08/19/17 Cholestyramine* (Questran* Powder) 378 Gm Powder, 4 GM PO BID, EA 08/19/17 Chlorhexidine Gluconate (Peridex) 473 Ml Mouthwash, 15 ML MM Q12, BOTTLE 08/19/17 Atorvastatin Calcium (Atorvastatin Calcium) 10 Mg Tablet, 10 MG PO QHS, #30 TAB 08/19/17 Aspirin (Low Dose Aspirin) 81 Mg Tablet.dr, 81 MG PO DAILY, #30 TAB 08/19/17 Polyvinyl Alcohol (Tears Again) 15 Ml Drops, 1 DRP BOTH EYES TID PRN for DRY EYES, BOTTLE 08/19/17 Albuterol Sulfate* (Albuterol Sulfate* Neb) 0.083%-3 Ml Neb, 2.5 MG NEB Q6 PRN for WHEEZING AND SOB, #30 VIAL 08/19/17 Albuterol Sulfate* (Albuterol Sulfate* Neb) 0.083%-3 Ml Neb, 2.5 MG NEB Q3H PRN for WHEEZING AND SOB, #30 VIAL 08/19/17 Medications Current Medications Acetaminophen (Tylenol Tab) 650 mg PRN PRN PO NOTE; Start 09/24/18 at 05:00 Amitriptyline HCl (Elavil) 25 mg QHS PO Last administered on 09/25/18 20:34; Admin Dose 25 MG; Start 09/24/18 at 21:00 Ascorbic Acid (Vitamin C) 500 mg DAILY PO Last administered on 09/26/18 08:34; Admin Dose 500 MG; Start 09/24/18 at 09:00 Aspirin (Halfprin) 81 mg DAILY PO Last administered on 09/26/18 08:24; Admin Dose 81 MG; Start 09/24/18 at 09:00 Atorvastatin Calcium (Lipitor) 10 mg QHS PO Last administered on 09/25/18 20:34; Admin Dose 10 MG; Start 09/24/18 at 21:00 Bisacodyl (Dulcolax Supp) 10 mg DAILY PRN [place] CONSTIPATION; Start 09/24/18 at 05:00 Chlorhexidine Gluconate (Peridex) 15 ml Q12 MM Last administered on 09/26/18 08:27; Admin Dose 15 ML; Start 09/24/18 at 09:00 Cholestyramine Resin (Questran) 1 pkt BID PO Last administered on 09/26/18 08:27; Admin Dose 1 PKT; Start 09/24/18 at 09:00 Clonazepam (Klonopin) 0.5 mg BID PRN PO ANXIETY Last administered on 09/25/18 20:40; Admin Dose 0.5 MG; Start 09/24/18 at 05:00 Acetaminophen/ Hydrocodone Bitart ([place] (5/325)) 1 tab BID PRN PO MANAGEMENT; Start 09/24/18 at 05:00 Acetaminophen/ Hydrocodone Bitart ([place] (5/325)) 1 tab Q6 PRN PO PAIN LEVEL 7- 9 Last administered on 09/25/18 16:44; Admin Dose 1 TAB; Start 09/24/18 at 05:00 Loratadine (Claritin) 10 mg DAILY PO Last administered on 09/26/18 08:25; Admin Dose 10 MG; Start 09/24/18 at 09:00 Magnesium Hydroxide (Milk Of Mag) 30 ml DAILY PRN PO CONSTIPATION; Start 09/24/18 at 05:00 Magnesium Oxide (Mag-Ox 400) 400 mg DAILY PO Last administered on 09/26/18 08:25; Admin Dose 400 MG; Start 09/24/18 at 09:00 Metoprolol Tartrate (Lopressor) 25 mg BID PO Last administered on 09/26/18 08:25; Admin Dose 25 MG; Start 09/24/18 at 09:00 Multivitamins Therapeutic (Theragran) 1 tab DAILY PO Last administered on 09/26/18 08:25; Admin Dose 1 TAB; Start 09/24/18 at 09:00 Eye Lubricant (Artificial Tears Oph) 1 drop TID PRN BOTH EYES DRY EYES; Start 09/24/18 at 05:00 Ranitidine HCl (Zantac) 150 mg Q12 PO Last administered on 09/26/18 08:24; Admin Dose 150 MG; Start 09/24/18 at 09:00 Piperacillin Sod/ Tazobactam Sod 100 ml @ 200 mls/hr Q6 IVPB Last administered on 09/26/18 06:05; Admin Dose 200 MLS/HR; Start 09/24/18 at 06:00 Albuterol/ Ipratropium (Duoneb) 3 ml Q4H RESP THERAPY PRN HHN SHORTNESS OF BREATH Last administered on 09/26/18 07:43; Admin Dose 3 ML; Start 09/24/18 at 05:00 Lorazepam (Ativan) 1 mg Q6H PRN IV ANXIETY Last administered on 09/25/18 20:40; Admin Dose 1 MG; Start 09/24/18 at 05:00 Diagnostic Test (Pha) (Accu-Chek) 1 ea 02 XX Last administered on 09/25/18 01:49; Admin Dose 1 EA; Start 09/25/18 at 02:00 Miscellaneous Information 1 ea NOTE XX ; Start 09/24/18 at 05:30 Glucose (Glutose) 15 gm Q15M PRN PO DECREASED GLUCOSE; Start 09/24/18 at 05:30 Glucose (Glutose) 22.5 gm Q15M PRN PO DECREASED GLUCOSE; Start 09/24/18 at 05:30 Dextrose (D50w Syringe) 25 ml Q15M PRN IV DECREASED GLUCOSE; Start 09/24/18 at 05:30 Dextrose (D50w Syringe) 50 ml Q15M PRN IV DECREASED GLUCOSE; Start 09/24/18 at 05:30 Glucagon (Glucagen) 1 mg Q15M PRN IM DECREASED GLUCOSE; Start 09/24/18 at 05:30 Glucose (Glutose) 15 gm Q15M PRN BUCCAL DECREASED GLUCOSE; Start 09/24/18 at 05:30 Pantoprazole (Protonix Tab) 40 mg BID@0600,1800 PO Last administered on 09/26/18 06:05; Admin Dose 40 MG; Start 09/24/18 at 06:00 Linezolid 300 ml @ 300 mls/hr Q12 IVPB Last administered on 09/26/18 08:27; Admin Dose 300 MLS/HR; Start 09/24/18 at 11:30 Morphine Sulfate (morphine) 2 mg Q4H PRN IV SEVERE PAIN LEVEL 7-10 Last admini stered on 09/26/18 08:27; Admin Dose 2 MG; Start 09/24/18 at 13:00 Nitroglycerin (Nitroglycerin (Sl Tab) 0.4 Mg) 1 tab Q5M PRN SL ANGINA Last administered on 09/24/18 16:00; Admin Dose 1 TAB; Start 09/24/18 at 13:00 Enoxaparin Sodium (Lovenox) 40 mg DAILY SC Last administered on 09/26/18 08:36; Admin Dose 40 MG; Start 09/24/18 at 13:00 Assessment/Plan Hospital Course (Demo Recall) 1. Atypical chest pain: Myocardial infarction was ruled out with serial cardiac enzyme 2. Pneumonia 3. Bacteremia 4. Hypoxemic respiratory failure status post tracheostomy 5. History of hypertension 6. Sinus tachycardia 7. History of proximal atrial fibrillation: Currently remains sinus rhythm sinus tachycardia 8. History of dysphagia 9. History of COPD 10. Bipolar disorder 11. Anemia Recommendations: Continue with aspirin for now. Beta-toby to be continued and increase as needed/tolerated I will order ultrasound lower extremity rule out DVT Antibiotic management as per internal medicine Respiratory care to be continued Statin to be continued as well Thank you for his referral. We will continue following with you BRENTON RIOS MD [facility] BRENTON RIOS MD Sep 26, 2018 10:30
[2018-09-26] MEDS: morphine LIQ (10 MG/5 ML) CUP PO PRN ×2 (12:37→18:28)
--- NOTE | 2018-09-26 12:37 | CONS ---
Consult Date/Type/Reason Admit Date/Time Sep 23, 2018 at 23:15 Initial Consult Date 09/24/18 Type of Consult Pulmonary Requesting Provider: KHANH SOSA MD Date/Time of Note DATE: 09/26/18 TIME: 12:36 Subjective Remains stable on vent this morning. Objective Vital Signs Date Temp Pulse Resp B/P (MAP) Pulse Ox O2 O2 Flow FiO2 Time Delivery Rate 09/26/18 97.6 87 20 127/72 99 12:04 (90) 09/26/18 30 11:42 09/24/18 Trach 01:05 Collar Intake and Output 09/25/18 09/25/18 09/26/18 1515:00 23:00 07:00 IntakeIntake Total 400 ml 700 ml 500 ml OutputOutput Total 1900 ml 700 ml BalanceBalance 400 ml -1200 ml -200 ml Exam GENERAL: Well-nourished well-developed gentleman comfortable at rest on mechanical ventilation via tracheostomy VITAL SIGNS: per chart NECK: Supple. No JVD or lymphadenopathy. CARDIAC EXAM: S1, S2. No added sounds or murmurs. CHEST: clear bilaterally, No added sounds, rales or wheezes ABDOMEN: Soft, nontender. No guarding or rebound. EXTREMITIES: No cyanosis, clubbing or edema. NEUROLOGIC: Generalized weakness. No focal deficits. Vent Setting Ventilator Support Mode: AC Fraction of Inspired Oxygen pe: 30 Positive End Expiratory Pressu: 8.0 Results/Medications Result Diagram: 09/26/18 0542 09/26/18 0542 Results 24 hrs Laboratory Tests Test 09/26/18 05:42 White Blood Count 11.2 H Red Blood Count 3.29 L Hemoglobin 9.7 L Hematocrit 31.5 L Mean Corpuscular Volume 95.7 Mean Corpuscular Hemoglobin 29.5 Mean Corpuscular Hemoglobin Concent 30.8 L Red Cell Distribution Width 12.4 Platelet Count 192 Mean Platelet Volume 9.6 Immature Granulocytes % 0.800 H Neutrophils % 74.9 Lymphocytes % 12.4 L Monocytes % 7.7 Eosinophils % 3.8 Basophils % 0.4 Nucleated Red Blood Cells % 0.0 Immature Granulocytes # 0.090 H Neutrophils # 8.4 H Lymphocytes # 1.4 Monocytes # 0.9 Eosinophils # 0.4 Basophils # 0.1 Nucleated Red Blood Cells # 0.0 Sodium Level 142 Potassium Level 3.8 Chloride Level 99 Carbon Dioxide Level 37 H Anion Gap 6 Blood Urea Nitrogen 15 Creatinine 0.82 Est Glomerular Filtrat Rate mL/min > 60 Glucose Level 83 Calcium Level 8.8 Phosphorus Level 2.9 Magnesium Level 2.3 Medications Current Medications Acetaminophen (Tylenol Tab) 650 mg PRN PRN PO NOTE; Start 09/24/18 at 05:00 Amitriptyline HCl (Elavil) 25 mg QHS PO Last administered on 09/25/18 20:34; Admin Dose 25 MG; Start 09/24/18 at 21:00 Ascorbic Acid (Vitamin C) 500 mg DAILY PO Last administered on 09/26/18 08:34; Admin Dose 500 MG; Start 09/24/18 at 09:00 Aspirin (Halfprin) 81 mg DAILY PO Last administered on 09/26/18 08:24; Admin Dose 81 MG; Start 09/24/18 at 09:00 Atorvastatin Calcium (Lipitor) 10 mg QHS PO Last administered on 09/25/18 20:34; Admin Dose 10 MG; Start 09/24/18 at 21:00 Bisacodyl (Dulcolax Supp) 10 mg DAILY PRN [place] CONSTIPATION; Start 09/24/18 at 05:00 Chlorhexidine Gluconate (Peridex) 15 ml Q12 MM Last administered on 09/26/18 08:27; Admin Dose 15 ML; Start 09/24/18 at 09:00 Cholestyramine Resin (Questran) 1 pkt BID PO Last administered on 09/26/18 08:27; Admin Dose 1 PKT; Start 09/24/18 at 09:00 Clonazepam (Klonopin) 0.5 mg BID PRN PO ANXIETY Last administered on 09/25/18 20:40; Admin Dose 0.5 MG; Start 09/24/18 at 05:00 Acetaminophen/ Hydrocodone Bitart ([place] (5/325)) 1 tab BID PRN PO MANAGEMENT; Start 09/24/18 at 05:00 Acetaminophen/ Hydrocodone Bitart ([place] (5/325)) 1 tab Q6 PRN PO PAIN LEVEL 7- 9 Last administered on 09/25/18 16:44; Admin Dose 1 TAB; Start 09/24/18 at 05:00 Loratadine (Claritin) 10 mg DAILY PO Last administered on 09/26/18 08:25; Admin Dose 10 MG; Start 09/24/18 at 09:00 Magnesium Hydroxide (Milk Of Mag) 30 ml DAILY PRN PO CONSTIPATION; Start 09/24/18 at 05:00 Magnesium Oxide (Mag-Ox 400) 400 mg DAILY PO Last administered on 09/26/18 08:25; Admin Dose 400 MG; Start 09/24/18 at 09:00 Metoprolol Tartrate (Lopressor) 25 mg BID PO Last administered on 09/26/18 08:25; Admin Dose 25 MG; Start 09/24/18 at 09:00 Multivitamins Therapeutic (Theragran) 1 tab DAILY PO Last administered on 09/26/18 08:25; Admin Dose 1 TAB; Start 09/24/18 at 09:00 Eye Lubricant (Artificial Tears Oph) 1 drop TID PRN BOTH EYES DRY EYES; Start 09/24/18 at 05:00 Ranitidine HCl (Zantac) 150 mg Q12 PO Last administered on 09/26/18 08:24; Admin Dose 150 MG; Start 09/24/18 at 09:00 Piperacillin Sod/ Tazobactam Sod 100 ml @ 200 mls/hr Q6 IVPB Last administered on 09/26/18 11:49; Admin Dose 200 MLS/HR; Start 09/24/18 at 06:00 Albuterol/ Ipratropium (Duoneb) 3 ml Q4H RESP THERAPY PRN HHN SHORTNESS OF BREATH Last administered on 09/26/18 11:40; Admin Dose 3 ML; Start 09/24/18 at 05:00 Lorazepam (Ativan) 1 mg Q6H PRN IV ANXIETY Last administered on 09/25/18 20:40; Admin Dose 1 MG; Start 09/24/18 at 05:00 Diagnostic Test (Pha) (Accu-Chek) 1 ea 02 XX Last administered on 09/25/18 01:49; Admin Dose 1 EA; Start 09/25/18 at 02:00 Miscellaneous Information 1 ea NOTE XX ; Start 09/24/18 at 05:30 Glucose (Glutose) 15 gm Q15M PRN PO DECREASED GLUCOSE; Start 09/24/18 at 05:30 Glucose (Glutose) 22.5 gm Q15M PRN PO DECREASED GLUCOSE; Start 09/24/18 at 05:30 Dextrose (D50w Syringe) 25 ml Q15M PRN IV DECREASED GLUCOSE; Start 09/24/18 at 05:30 Dextrose (D50w Syringe) 50 ml Q15M PRN IV DECREASED GLUCOSE; Start 09/24/18 at 05:30 Glucagon (Glucagen) 1 mg Q15M PRN IM DECREASED GLUCOSE; Start 09/24/18 at 05:30 Glucose (Glutose) 15 gm Q15M PRN BUCCAL DECREASED GLUCOSE; Start 09/24/18 at 05:30 Pantoprazole (Protonix Tab) 40 mg BID@0600,1800 PO Last administered on 09/26/18at 06:05; Admin Dose 40 MG; Start 09/24/18 at 06:00 Linezolid 300 ml @ 300 mls/hr Q12 IVPB Last administered on 09/26/18at 08:27; Admin Dose 300 MLS/HR; Start 09/24/18 at 11:30 Nitroglycerin (Nitroglycerin (Sl Tab) 0.4 Mg) 1 tab Q5M PRN SL ANGINA Last administered on 09/24/18at 16:00; Admin Dose 1 TAB; Start 09/24/18 at 13:00 Enoxaparin Sodium (Lovenox) 40 mg DAILY SC Last administered on 09/26/18at 08:36; Admin Dose 40 MG; Start 09/24/18 at 13:00 Morphine Sulfate (morphine) 6 mg Q4H PRN PO SEVERE PAIN LEVEL 7-10; Start 09/26/18 at 12:30 Assessment/Plan Hospital Course (Demo Recall) IMP: 1. Fevers/Leukocytosis--in a patient with advanced emphysema and VDRF s/p numerous prior infections. CXR and clinical exam not impressive for HCAP, though appropriate to cover. 2. VDRF 3. Chronic Hypercapnic Resp Failure- 4. Afib 5. Recent bacteremia 6. CAD RECS: 1. Bronchodilators with duonebs Q4 hours 2. Broad spectrum abx; with plans to de-escalate pending cultures 3. UA; urine cx; resp cx; and BC x 2, abx per ID 4 continue mechanical ventilation 5. permissive hypercapnia 6. DVT/GI prophylaxis [facility] BROWN [facility] Sep 26, 2018 12:37
[2018-09-26] MEDS: clonAZEPAM 0.5 MG TAB PO PRN ×2 (14:33→19:33)
--- NOTE | 2018-09-26 16:48 | CONS ---
Assessment/Plan Assessment/Plan Hospital Course (Demo Recall) No acute events overnight patient is sleeping looks comfortable no fevers Indwelling: Trach bag Microbiology: Blood culture on admission grew gram-positive cocci in clusters Antimicrobials: Zyvox and Zosyn Allergy: Vancomycin Chest x-ray this morning revealed stable superimposed mild potential alveolar infiltrates throughout the right lung and left lower lobe Physical examination: Morbidly obese well-developed chronically ill-appearing middle-aged white man who is alert in no distress. Head atraumatic normocephalic sclera nonicteric vehicle mucosa dry neck is supple chest rise sym metrical breath sounds diminished bases heart S1-S2 abdomen obese soft bowel sounds present extremities without cyanosis Assessment: 1. Sepsis on admission 2. Acute on chronic hypoxemic respiratory failure with COPD exacerbation and possible pneumonia 3. Bacteremia 4. Coronary artery disease 5. Morbid obesity 6. Diabetes Plan: Preliminary negative stable we will repeat blood cultures, change Zosyn to meropenem, follow pulmonary recommendations Consultation Date/Type/Reason Admit Date/Time Sep 23, 2018 at 23:15 Initial Consult Date 09/24/18 Type of Consult id Requesting Provider: KHANH SOSA MD Date/Time of Note DATE: 09/26/18 TIME: 16:46 Exam/Review of Systems Exam Vitals Vital Signs Date Temp Pulse Resp B/P (MAP) Pulse Ox O2 O2 Flow FiO2 Time Delivery Rate 09/26/18 98.6 89 20 131/70 99 15:59 (90) 09/26/18 30 14:53 09/24/18 Trach 01:05 Collar Intake and Output 09/25/18 09/25/18 09/26/18 1515:00 23:00 07:00 IntakeIntake Total 400 ml 700 ml 500 ml OutputOutput Total 1900 ml 700 ml BalanceBalance 400 ml -1200 ml -200 ml Results Result Diagram: 09/26/18 0542 09/26/18 0542 Results 24hrs Laboratory Tests Test 09/26/18 05:42 White Blood Count 11.2 H Red Blood Count 3.29 L Hemoglobin 9.7 L Hematocrit 31.5 L Mean Corpuscular Volume 95.7 Mean Corpuscular Hemoglobin 29.5 Mean Corpuscular Hemoglobin Concent 30.8 L Red Cell Distribution Width 12.4 Platelet Count 192 Mean Platelet Volume 9.6 Immature Granulocytes % 0.800 H Neutrophils % 74.9 Lymphocytes % 12.4 L Monocytes % 7.7 Eosinophils % 3.8 Basophils % 0.4 Nucleated Red Blood Cells % 0.0 Immature Granulocytes # 0.090 H Neutrophils # 8.4 H Lymphocytes # 1.4 Monocytes # 0.9 Eosinophils # 0.4 Basophils # 0.1 Nucleated Red Blood Cells # 0.0 Sodium Level 142 Potassium Level 3.8 Chloride Level 99 Carbon Dioxide Level 37 H Anion Gap 6 Blood Urea Nitrogen 15 Creatinine 0.82 Est Glomerular Filtrat Rate mL/min > 60 Glucose Level 83 Calcium Level 8.8 Phosphorus Level 2.9 Magnesium Level 2.3 Medications Medication Current Medications Acetaminophen (Tylenol Tab) 650 mg PRN PRN PO NOTE; Start 09/24/18 at 05:00 Amitriptyline HCl (Elavil) 25 mg QHS PO Last administered on 09/25/18 20:34; Admin Dose 25 MG; Start 09/24/18 at 21:00 Ascorbic Acid (Vitamin C) 500 mg DAILY PO Last administered on 09/26/18 08:34; Admin Dose 500 MG; Start 09/24/18 at 09:00 Aspirin (Halfprin) 81 mg DAILY PO Last administered on 09/26/18 08:24; Admin Dose 81 MG; Start 09/24/18 at 09:00 Atorvastatin Calcium (Lipitor) 10 mg QHS PO Last administered on 09/25/18 20:34; Admin Dose 10 MG; Start 09/24/18 at 21:00 Bisacodyl (Dulcolax Supp) 10 mg DAILY PRN [place] CONSTIPATION; Start 09/24/18 at 05:00 Chlorhexidine Gluconate (Peridex) 15 ml Q12 MM Last administered on 09/26/18 08:27; Admin Dose 15 ML; Start 09/24/18 at 09:00 Cholestyramine Resin (Questran) 1 pkt BID PO Last administered on 09/26/18 08:27; Admin Dose 1 PKT; Start 09/24/18 at 09:00 Clonazepam (Klonopin) 0.5 mg BID PRN PO ANXIETY Last administered on 09/26/18 14:33; Admin Dose 0.5 MG; Start 09/24/18 at 05:00 Acetaminophen/ Hydrocodone Bitart ([place] (5/325)) 1 tab BID PRN PO MANAGEMENT; Start 09/24/18 at 05:00 Acetaminophen/ Hydrocodone Bitart ([place] (5/325)) 1 tab Q6 PRN PO PAIN LEVEL 7- 9 Last administered on 09/25/18 16:44; Admin Dose 1 TAB; Start 09/24/18 at 05:00 Loratadine (Claritin) 10 mg DAILY PO Last administered on 09/26/18 08:25; Admin Dose 10 MG; Start 09/24/18 at 09:00 Magnesium Hydroxide (Milk Of Mag) 30 ml DAILY PRN PO CONSTIPATION; Start 09/24/18 at 05:00 Magnesium Oxide (Mag-Ox 400) 400 mg DAILY PO Last administered on 09/26/18 08:25; Admin Dose 400 MG; Start 09/24/18 at 09:00 Metoprolol Tartrate (Lopressor) 25 mg BID PO Last administered on 09/26/18 08:25; Admin Dose 25 MG; Start 09/24/18 at 09:00 Multivitamins Therapeutic (Theragran) 1 tab DAILY PO Last administered on 09/26/18 08:25; Admin Dose 1 TAB; Start 09/24/18 at 09:00 Eye Lubricant (Artificial Tears Oph) 1 drop TID PRN BOTH EYES DRY EYES; Start 09/24/18 at 05:00 Ranitidine HCl (Zantac) 150 mg Q12 PO Last administered on 09/26/18 08:24; Admin Dose 150 MG; Start 09/24/18 at 09:00 Piperacillin Sod/ Tazobactam Sod 100 ml @ 200 mls/hr Q6 IVPB Last administered on 09/26/18 11:49; Admin Dose 200 MLS/HR; Start 09/24/18 at 06:00 Albuterol/ Ipratropium (Duoneb) 3 ml Q4H RESP THERAPY PRN HHN SHORTNESS OF BREATH Last administered on 09/26/18 14:50; Admin Dose 3 ML; Start 09/24/18 at 05:00 Lorazepam (Ativan) 1 mg Q6H PRN IV ANXIETY Last administered on 09/25/18 20:40; Admin Dose 1 MG; Start 09/24/18 at 05:00 Diagnostic Test (Pha) (Accu-Chek) 1 ea 02 XX Last administered on 09/25/18 01:49; Admin Dose 1 EA; Start 09/25/18 at 02:00 Miscellaneous Information 1 ea NOTE XX ; Start 09/24/18 at 05:30 Glucose (Glutose) 15 gm Q15M PRN PO DECREASED GLUCOSE; Start 09/24/18 at 05:30 Glucose (Glutose) 22.5 gm Q15M PRN PO DECREASED GLUCOSE; Start 09/24/18 at 05:30 Dextrose (D50w Syringe) 25 ml Q15M PRN IV DECREASED GLUCOSE; Start 09/24/18 at 05:30 Dextrose (D50w Syringe) 50 ml Q15M PRN IV DECREASED GLUCOSE; Start 09/24/18 at 0 5:30 Glucagon (Glucagen) 1 mg Q15M PRN IM DECREASED GLUCOSE; Start 09/24/18 at 05:30 Glucose (Glutose) 15 gm Q15M PRN BUCCAL DECREASED GLUCOSE; Start 09/24/18 at 05:30 Pantoprazole (Protonix Tab) 40 mg BID@0600,1800 PO Last administered on 09/26/18at 06:05; Admin Dose 40 MG; Start 09/24/18 at 06:00 Linezolid 300 ml @ 300 mls/hr Q12 IVPB Last administered on 09/26/18at 08:27; Admin Dose 300 MLS/HR; Start 09/24/18 at 11:30 Nitroglycerin (Nitroglycerin (Sl Tab) 0.4 Mg) 1 tab Q5M PRN SL ANGINA Last ad ministered on 09/24/18at 16:00; Admin Dose 1 TAB; Start 09/24/18 at 13:00 Enoxaparin Sodium (Lovenox) 40 mg DAILY SC Last administered on 09/26/18at 08:36; Admin Dose 40 MG; Start 09/24/18 at 13:00 Morphine Sulfate (morphine) 6 mg Q4H PRN PO SEVERE PAIN LEVEL 7-10 Last administered on 09/26/18at 12:37; Admin Dose 6 MG; Start 09/26/18 at 12:30 NANCY MOREL NP Sep 26, 2018 16:48
[2018-09-26] MEDS: HYDROCODONE/APAP (5/325) TAB PO PRN (20:21)
[2018-09-26] MEDS: AMITRIPTYLINE 25 MG TAB PO SCH (20:22)
[2018-09-26] MEDS: ATORVASTATIN 10 MG TAB PO SCH (20:22)
[2018-09-26] MEDS: MEROPENEM 1 GM/50ML(PMX) 50 ML IVPB SCH (20:41)
[2018-09-27] VITALS (22 sets, daily range): BP systolic 108–134; BP diastolic 58–83; PULSE 70–84; RESP 18–24
[2018-09-27] MEDS: ACCU-CHEK XX SCH (01:24)
[2018-09-27] MEDS: ALBUTEROL/IPRATROPIUM (NEB) 3 ML AMP HHN PRN ×6 (03:11→21:23)
[2018-09-27] MEDS: PANTOPRAZOLE (EC) 40 MG TAB PO SCH ×2 (05:05→18:01)
--- NOTE | 2018-09-27 09:30 | CONS ---
Consult Date/Type/Reason Admit Date/Time Sep 23, 2018 at 23:15 Initial Consult Date 09/25/18 Type of Consultation: cv Requesting Provider: KHANH SOSA MD Date/Time of Note DATE: 09/27/18 TIME: 09:29 Subjective Cardiology follow-up progress note Subjective: Discussed with the staff telemetry was reviewed patient remained sinus rhythm. Heart rate is stable now Patient is status post tracheostomy stable. No reports of chest pain or pressure now Objective: General: Obese gentleman in no acute distress HEENT: NC/AT. pupils are equal. round. NECK: status post tracheostomy no stridor. CV: RRR. systolic murmur; no gallop or rubs. PULM: no wheezing or rhonchi. Chest: No reproducible chest wall tenderness GI: SOFT, NT, ND, no rebound or guarding Extremity: trace B/L LE edema. no clubbing. neuro: Awake. Responds appropriately Psych: calm at the moment rectal: deferred EKG shows sinus tachycardia heart rate of 130 Chest x-ray done in the ER showed:. Calcified atherosclerosis in the aorta. Scattered atelectasis in both lungs. Stable superimposed mild potential alveolar infiltrates throughout the right lung and left lower lobe. Diffuse mild interstitial prominence in both lungs. Interstitial prominence could be chronic or reflect mild interstitial edema. Echocardiogram done 09/25/2018 was personally reviewed which shows: Overall, normal left ventricular systolic function. Not all segments visualized. Normal left ventricular cavity size. Left ventricle not well visualized. Mild concentric left ventricular hypertrophy. Ejection fraction is visually estimated at 60 %. Abnormal Diastolic Function. Mitral valve is not well visualized. Mild mitral leaflet calcification. Mild mitral annular calcification. Trace mitral regurgitation. Aortic valve not well visualized. No hemodynamically significant aortic stenosis by doppler. Aortic cusps appear mildly calcified. Normal appearance of the tricuspid valve. Estimated peak PA systolic pressure 23 mmHg. There is trace tricuspid regurgitation. VERY SUBOPTIMAL. PT agitated and noncooperative during the study. Objective Vitals Vital Signs Date Temp Pulse Resp B/P (MAP) Pulse Ox O2 O2 Flow FiO2 Time Delivery Rate 09/27/18 71 08:47 09/27/18 98.0 18 129/83 94 08:04 (98) 09/27/18 30 05:15 09/24/18 Trach 01:05 Collar Intake and Output 09/26/18 09/26/1809/27/19 1515:00 23:00 07:00 IntakeIntake Total 400 ml 850 ml 850 ml OutputOutput Total 1000 ml 1400 ml BalanceBalance 400 ml -150 ml -550 ml Results/Medications Result Diagram: 09/27/18 0535 09/27/18 0535 Results 24 hrs Laboratory Tests Test 09/27/18 01:08 09/27/18 05:35 Bedside Glucose 95 White Blood Count 9.2 Red Blood Count 3.15 L Hemoglobin 9.5 L Hematocrit 30.0 L Mean Corpuscular Volume 95.2 Mean Corpuscular Hemoglobin 30.2 Mean Corpuscular Hemoglobin Concent 31.7 L Red Cell Distribution Width 12.7 Platelet Count 189 Mean Platelet Volume 8.9 Immature Granulocytes % 0.900 H Neutrophils % 71.1 Lymphocytes % 16.3 Monocytes % 8.3 Eosinophils % 3.0 Basophils % 0.4 Nucleated Red Blood Cells % 0.0 Immature Granulocytes # 0.080 H Neutrophils # 6.5 Lymphocytes # 1.5 Monocytes # 0.8 Eosinophils # 0.3 Basophils # 0.0 Nucleated Red Blood Cells # 0.0 Sodium Level 140 Potassium Level 3.7 Chloride Level 103 Carbon Dioxide Level 31 Anion Gap 6 Blood Urea Nitrogen 13 Creatinine 0.67 Est Glomerular Filtrat Rate mL/min > 60 Glucose Level 80 Calcium Level 8.8 Phosphorus Level 3.0 Magnesium Level 2.4 Home Meds Reported Medications Ascorbic Acid* (Vitamin C*) 500 Mg Capsule.sa, 500 MG PO DAILY, CAP 08/19/17 Cran/Vitc/Mannose/Inulin/Brom (Uti-Stat Liquid) 3,875 Mg/30 Ml Liquid, 3875 MG PO DAILY 08/19/17 Acetaminophen* (Acetaminophen*) 650 Mg Tablet, 650 MG PO FOR TRACH CHANGE, #30 TAB GIVE 30 MIN PRIOR TO TRACH CHANGE 08/19/17 Ranitidine Hcl* (Ranitidine Hcl*) 150 Mg Tablet, 150 MG PO Q12, #60 TAB 08/19/17 Omeprazole* (Omeprazole*) 20 Mg Capsule.dr, 20 MG PO BID, #60 CAP 08/19/17 Hydrocodone/Acetaminophen ([place] 5-325 Tablet) 1 Each Tablet, 1 EACH PO BID PRN for MANAGEMENT, TAB 08/19/17 Hydrocodone/Acetaminophen ([place] 5-325 Tablet) 1 Each Tablet, 1 EACH PO Q6 PRN for PAIN LEVEL 7-9, TAB 08/19/17 Multivitamins* (Theragran*) 1 Tab Tab, 1 TAB PO DAILY, TAB 08/19/17 Magnesium Hydroxide* (Milk Of Magnesia*) 400 Mg/5 Ml Oral.susp, 30 ML PO DAILY PRN for CONSTIPATION, ML 08/19/17 Metoprolol Tartrate* (Lopressor*) 25 Mg Tablet, 25 MG PO BID, #60 TAB HOLD FOR SBP <110 OR HR <60 08/19/17 Magnesium Oxide* (Magnesium Oxide*) 400 Mg Tablet, 400 MG PO DAILY, TAB 08/19/17 Loratadine* (Loratadine*) 10 Mg Tablet, 10 MG PO DAILY, #30 TAB 08/19/17 Clonazepam* (Klonopin*) 0.5 Mg Tab, 0.5 MG PO BID PRN for ANXIETY, TAB 08/19/17 Amitriptyline Hcl* (Amitriptyline Hcl*) 25 Mg Tablet, 25 MG PO QHS, #30 TAB 08/19/17 Bisacodyl (Dulcolax) 10 Mg Supp.rect, 10 MG RC DAILY PRN for CONSTIPATION, SUPP.RECT 08/19/17 Cholestyramine* (Questran* Powder) 378 Gm Powder, 4 GM PO BID, EA 08/19/17 Chlorhexidine Gluconate (Peridex) 473 Ml Mouthwash, 15 ML MM Q12, BOTTLE 08/19/17 Atorvastatin Calcium (Atorvastatin Calcium) 10 Mg Tablet, 10 MG PO QHS, #30 TAB 08/19/17 Aspirin (Low Dose Aspirin) 81 Mg Tablet.dr, 81 MG PO DAILY, #30 TAB 08/19/17 Polyvinyl Alcohol (Tears Again) 15 Ml Drops, 1 DRP BOTH EYES TID PRN for DRY EYES, BOTTLE 08/19/17 Albuterol Sulfate* (Albuterol Sulfate* Neb) 0.083%-3 Ml Neb, 2.5 MG NEB Q6 PRN for WHEEZING AND SOB, #30 VIAL 08/19/17 Albuterol Sulfate* (Albuterol Sulfate* Neb) 0.083%-3 Ml Neb, 2.5 MG NEB Q3H PRN for WHEEZING AND SOB, #30 VIAL 08/19/17 Medications Current Medications Acetaminophen (Tylenol Tab) 650 mg PRN PRN PO NOTE; Start 09/24/18 at 05:00 Amitriptyline HCl (Elavil) 25 mg QHS PO Last administered on 09/26/18 20:22; Admin Dose 25 MG; Start 09/24/18 at 21:00 Ascorbic Acid (Vitamin C) 500 mg DAILY PO Last administered on 09/26/18 08:34; Admin Dose 500 MG; Start 09/24/18 at 09:00 Aspirin (Halfprin) 81 mg DAILY PO Last administered on 09/26/18 08:24; Admin Dose 81 MG; Start 09/24/18 at 09:00 Atorvastatin Calcium (Lipitor) 10 mg QHS PO Last administered on 09/26/18 20:22; Admin Dose 10 MG; Start 09/24/18 at 21:00 Bisacodyl (Dulcolax Supp) 10 mg DAILY PRN [place] CONSTIPATION; Start 09/24/18 at 05:00 Chlorhexidine Gluconate (Peridex) 15 ml Q12 MM Last administered on 09/26/18 20:20; Admin Dose 15 ML; Start 09/24/18 at 09:00 Cholestyramine Resin (Questran) 1 pkt BID PO Last administered on 09/26/18 20:22; Admin Dose 1 PKT; Start 09/24/18 at 09:00 Clonazepam (Klonopin) 0.5 mg BID PRN PO ANXIETY Last administered on 09/26/18 19:33; Admin Dose 0.5 MG; Start 09/24/18 at 05:00 Acetaminophen/ Hydrocodone Bitart ([place] (5/325)) 1 tab BID PRN PO MANAGEMENT; Start 09/24/18 at 05:00 Acetaminophen/ Hydrocodone Bitart ([place] (5/325)) 1 tab Q6 PRN PO PAIN LEVEL 7- 9 Last administered on 09/26/18 20:21; Admin Dose 1 TAB; Start 09/24/18 at 05:00 Loratadine (Claritin) 10 mg DAILY PO Last administered on 09/26/18 08:25; Admin Dose 10 MG; Start 09/24/18 at 09:00 Magnesium Hydroxide (Milk Of Mag) 30 ml DAILY PRN PO CONSTIPATION; Start 09/24/18 at 05:00 Magnesium Oxide (Mag-Ox 400) 400 mg DAILY PO Last administered on 09/26/18 08:25; Admin Dose 400 MG; Start 09/24/18 at 09:00 Metoprolol Tartrate (Lopressor) 25 mg BID PO Last administered on 09/26/18 20:21; Admin Dose 25 MG; Start 09/24/18 at 09:00 Multivitamins Therapeutic (Theragran) 1 tab DAILY PO Last administered on 09/26/18 08:25; Admin Dose 1 TAB; Start 09/24/18 at 09:00 Eye Lubricant (Artificial Tears Oph) 1 drop TID PRN BOTH EYES DRY EYES; Start 09/24/18 at 05:00 Ranitidine HCl (Zantac) 150 mg Q12 PO Last administered on 09/26/18 20:22; Admin Dose 150 MG; Start 09/24/18 at 09:00 Albuterol/ Ipratropium (Duoneb) 3 ml Q4H RESP THERAPY PRN HHN SHORTNESS OF BR EATH Last administered on 09/27/18 03:11; Admin Dose 3 ML; Start 09/24/18 at 05:00 Lorazepam (Ativan) 1 mg Q6H PRN IV ANXIETY Last administered on 09/25/18 20:40; Admin Dose 1 MG; Start 09/24/18 at 05:00 Diagnostic Test (Pha) (Accu-Chek) 1 ea 02 XX Last administered on 09/27/18 01:24; Admin Dose 1 EA; Start 09/25/18 at 02:00 Miscellaneous Information 1 ea NOTE XX ; Start 09/24/18 at 05:30 Glucose (Glutose) 15 gm Q15M PRN PO DECREASED GLUCOSE; Start 09/24/18 at 05:30 Glucose (Glutose) 22.5 gm Q15M PRN PO DECREASED GLUCOSE; Start 09/24/18 at 05:30 Dextrose (D50w Syringe) 25 ml Q15M PRN IV DECREASED GLUCOSE; Start 09/24/18 at 05:30 Dextrose (D50w Syringe) 50 ml Q15M PRN IV DECREASED GLUCOSE; Start 09/24/18 at 05:30 Glucagon (Glucagen) 1 mg Q15M PRN IM DECREASED GLUCOSE; Start 09/24/18 at 05:30 Glucose (Glutose) 15 gm Q15M PRN BUCCAL DECREASED GLUCOSE; Start 09/24/18 at 05:30 Pantoprazole (Protonix Tab) 40 mg BID@0600,1800 PO Last administered on 09/27/18 05:05; Admin Dose 40 MG; Start 09/24/18 at 06:00 Linezolid 300 ml @ 300 mls/hr Q12 IVPB Last administered on 09/26/18 21:30; Admin Dose 300 MLS/HR; Start 09/24/18 at 11:30 Nitroglycerin (Nitroglycerin (Sl Tab) 0.4 Mg) 1 tab Q5M PRN SL ANGINA Last administered on 09/24/18 16:00; Admin Dose 1 TAB; Start 09/24/18 at 13:00 Enoxaparin Sodium (Lovenox) 40 mg DAILY SC Last administered on 09/26/18 08:36; Admin Dose 40 MG; Start 09/24/18 at 13:00 Morphine Sulfate (morphine) 6 mg Q4H PRN PO SEVERE PAIN LEVEL 7-10 Last administered on 09/26/18 18:28; Admin Dose 6 MG; Start 09/26/18 at 12:30 Meropenem/Sodium Chloride 50 ml @ 100 mls/hr Q12 IVPB Last administered on 09/26/18 20:41; Admin Dose 100 MLS/HR; Start 09/26/18 at 21:00 Assessment/Plan Hospital Course (Demo Recall) 1. Atypical chest pain: Has resolved now and myocardial infarction was ruled out with serial cardiac enzyme 2. Pneumonia 3. Bacteremia 4. Hypoxemic respiratory failure status post tracheostomy 5. History of hypertension 6. Sinus tachycardia 7. History of proximal atrial fibrillation: Currently remains sinus rhythm sinu s tachycardia 8. History of dysphagia 9. History of COPD 10. Bipolar disorder 11. Anemia Recommendations: Continue with aspirin for now. Beta-toby to be continued and increase as needed/tolerated No evidence of DVT noted on the lower extremity ultrasound Antibiotic management as per internal medicine Respiratory care to be continued Statin to be continued as well Thank you for his referral. We will continue following with you BRENTON RIOS MD [facility] BRENTON RIOS MD Sep 27, 2018 09:30
[2018-09-27] MEDS: MULTIVITAMINS THERAPEUTIC TAB PO SCH (09:31)
[2018-09-27] MEDS: LORATADINE 10 MG TAB PO SCH (09:31)
[2018-09-27] MEDS: MAGNESIUM OXIDE 400 MG TAB PO SCH (09:31)
[2018-09-27] MEDS: RANITIDINE 150 MG TAB PO SCH ×2 (09:31→20:56)
[2018-09-27] MEDS: ASCORBIC ACID 500 MG TAB PO SCH (09:31)
[2018-09-27] MEDS: METOPROLOL 25 MG TAB PO SCH ×2 (09:32→20:57)
[2018-09-27] MEDS: ASPIRIN (EC) 81 MG TAB PO SCH (09:32)
[2018-09-27] MEDS: CHLORHEXIDINE GLUCONATE 15 ML UD CUP MM SCH ×2 (09:32→20:55)
[2018-09-27] MEDS: CHOLESTYRAMINE 4 GM PACKET PO SCH ×2 (09:32→20:56)
[2018-09-27] MEDS: LINEZOLID 600 MG/D5W (PMX) 300 ML IVPB SCH ×2 (09:33→22:21)
[2018-09-27] MEDS: MEROPENEM 1 GM/50ML(PMX) 50 ML IVPB SCH ×2 (09:33→21:02)
[2018-09-27] MEDS: morphine LIQ (10 MG/5 ML) CUP PO PRN ×2 (09:34→20:58)
[2018-09-27] MEDS: ENOXAPARIN 40 MG/0.4 ML SYG SC SCH (10:38)
[2018-09-27] MEDS: LORAZEPAM 2 MG INJ IV PRN (12:38)
--- NOTE | 2018-09-27 12:56 | EN ---
Date/Time of Note Date/Time of Note DATE: 09/27/18 TIME: 12:56 Event Note Medicine Medicine Event Note Rapid response called, I responded, patient was visibly nervous, according to nurse patient went to the commode and had a anxiety attack and then subsequently had some respiratory distress. Patient reportedly became blue in the face and nursing had to call RT. Patient is alert and oriented at this time and states that this feels like his usual anxiety attack, Ativan x1 was given via IV immediately, and patient began to feel instantly better. Patient however did complain of some chest pain therefore an EKG was drawn which did not show any overt ST abnormality, stat troponin, stat ABG, stat breathing treatment and chest x-ray was also ordered. Patient's primary care provider was also notified. Will be on standby for further orders. CHRISTOPHE SOSA Sep 27, 2018 12:56
--- NOTE | 2018-09-27 13:32 | CONS ---
Assessment/Plan Assessment/Plan Hospital Course (Demo Recall) No acute events overnight looks comfortable no fevers Indwelling: Trach bag Microbiology: Blood culture on admission grew staph, repeat bld cx neg Antimicrobials: Zyvox Merrem Allergy: Vancomycin Chest x-ray this morning revealed stable superimposed mild potential alveolar infiltrates throughout the right lung and left lower lobe Physical examination: Morbidly obese well-developed chronically ill-appearing middle-aged white man who is alert in no distress. Head atraumatic normocepha lic sclera nonicteric vehicle mucosa dry neck is supple chest rise symmetrical breath sounds diminished bases heart S1-S2 abdomen obese soft bowel sounds present extremities without cyanosis Assessment: 1. Sepsis on admission 2. Acute on chronic hypoxemic respiratory failure with COPD exacerbation and possible pneumonia 3. Bacteremia 4. Coronary artery disease 5. Morbid obesity 6. Diabetes Plan: Stable, wbc trending down, continue abx, follow pulmonary recommendations Consultation Date/Type/Reason Admit Date/Time Sep 23, 2018 at 23:15 Initial Consult Date 09/24/18 Type of Consult id Requesting Provider: KHANH SOSA MD Date/Time of Note DATE: 09/27/18 TIME: 13:31 Exam/Review of Systems Exam Vitals Vital Signs Date Temp Pulse Resp B/P (MAP) Pulse Ox O2 O2 Flow FiO2 Time Delivery Rate 09/27/18 78 13:11 09/27/18 22 92 30 11:39 09/27/18 98.4 126/76 11:09 (93) 09/24/18 Trach 01:05 Collar Intake and Output 09/26/18 09/26/18 09/27/18 1515:00 23:00 07:00 IntakeIntake Total 400 ml 850 ml 850 ml OutputOutput Total 1000 ml 1400 ml BalanceBalance 400 ml -150 ml -550 ml Results Result Diagram: 09/27/18 0535 09/27/18 0535 Results 24hrs Laboratory Tests Test 09/27/18 01:08 09/27/18 05:35 09/27/18 12:34 09/27/18 12:47 Bedside Glucose 95 113 White Blood Count 9.2 Red Blood Count 3.15 L Hemoglobin 9.5 L Hematocrit 30.0 L Mean Corpuscular 95.2 Volume Mean Corpuscular 30.2 Hemoglobin Mean Corpuscular 31.7 L Hemoglobin Concen t Red Cell 12.7 Distribution Width Platelet Count 189 Mean Platelet 8.9 Volume Immature 0.900 H Granulocytes % Neutrophils % 71.1 Lymphocytes % 16.3 Monocytes % 8.3 Eosinophils % 3.0 Basophils % 0.4 Nucleated Red 0.0 Blood Cells % Immature 0.080 H Granulocytes # Neutrophils # 6.5 Lymphocytes # 1.5 Monocytes # 0.8 Eosinophils # 0.3 Basophils # 0.0 Nucleated Red 0.0 Blood Cells # Sodium Level 140 Potassium Level 3.7 Chloride Level 103 Carbon Dioxide 31 Level Anion Gap 6 Blood Urea 13 Nitrogen Creatinine 0.67 Est Glomerular > 60 Filtrat Rate mL/min Glucose Level 80 Calcium Level 8.8 Phosphorus Level 3.0 Magnesium Level 2.4 Blood Gas Blood arterial Specimen Source Arterial Blood 09/27/2018 1:10:2 Date Drawn 1 PM Arterial Blood pH 7.286 *L (Temp corrected) Arterial Blood 69.0 H pCO2 (Temp correct) Arterial Blood 426.3 H pO2 (Temp corrected) Arterial Blood 32.1 H HCO3 Arterial Blood 3.8 H Base Excess Arterial Blood 99.6 H Oxygen Saturation Elijah Test ACCEPTAB Arterial Blood Right Radial Gas Puncture Site Arterial 0.3 Blood Carboxyhemo globin Arterial Blood 0.5 Methemoglobin Blood Gas A-a O2 217.7 H Differential Oxyhemoglobin 98.8 Percent Blood Gas 37.0 Temperature Blood Gas 20.0 Respiration Rate Blood Gas Actual 28 Respiration Rate Blood Gas VENT - AC Modality FiO2 100.0 Blood Gas Tidal 550.0 Volume Blood Gas Low 8.0 PEEP Setting Blood Gas GÓMEZ PASTRANA RN Critical Value Read Back Blood Gas Notified Whom Blood Gas 09/27/2018 1:28:2 Notified Time 8 PM Medications Medication Current Medications Acetaminophen (Tylenol Tab) 650 mg PRN PRN PO NOTE; Start 09/24/18 at 05:00 Amitriptyline HCl (Elavil) 25 mg QHS PO Last administered on 09/26/18at 20:22; Admin Dose 25 MG; Start 09/24/18 at 21:00 Ascorbic Acid (Vitamin C) 500 mg DAILY PO Last administered on 09/27/18at 09:31; Admin Dose 500 MG; Start 09/24/18 at 09:00 Aspirin (Halfprin) 81 mg DAILY PO Last administered on 09/27/18at 09:32; Admin Dose 81 MG; Start 09/24/18 at 09:00 Atorvastatin Calcium (Lipitor) 10 mg QHS PO Last administered on 09/26/18 20:22; Admin Dose 10 MG; Start 09/24/18 at 21:00 Bisacodyl (Dulcolax Supp) 10 mg DAILY PRN [place] CONSTIPATION; Start 09/24/18 at 05:00 Chlorhexidine Gluconate (Peridex) 15 ml Q12 MM Last administered on 09/27/18 09:32; Admin Dose 15 ML; Start 09/24/18 at 09:00 Cholestyramine Resin (Questran) 1 pkt BID PO Last administered on 09/27/18 09 :32; Admin Dose 1 PKT; Start 09/24/18 at 09:00 Clonazepam (Klonopin) 0.5 mg BID PRN PO ANXIETY Last administered on 09/26/18 19:33; Admin Dose 0.5 MG; Start 09/24/18 at 05:00 Acetaminophen/ Hydrocodone Bitart ([place] (5/325)) 1 tab BID PRN PO MANAGEMENT; Start 09/24/18 at 05:00 Acetaminophen/ Hydrocodone Bitart ([place] (5/325)) 1 tab Q6 PRN PO PAIN LEVEL 7- 9 Last administered on 09/26/18 20:21; Admin Dose 1 TAB; Start 09/24/18 at 05:00 Loratadine (Claritin) 10 mg DAILY PO Last administered on 09/27/18 09:31; Admin Dose 10 MG; Start 09/24/18 at 09:00 Magnesium Hydroxide (Milk Of Mag) 30 ml DAILY PRN PO CONSTIPATION; Start 09/24/18 at 05:00 Magnesium Oxide (Mag-Ox 400) 400 mg DAILY PO Last administered on 09/27/18 09:31; Admin Dose 400 MG; Start 09/24/18 at 09:00 Metoprolol Tartrate (Lopressor) 25 mg BID PO Last administered on 09/27/18 09:32; Admin Dose 25 MG; Start 09/24/18 at 09:00 Multivitamins Therapeutic (Theragran) 1 tab DAILY PO Last administered on 09/27/18 09:31; Admin Dose 1 TAB; Start 09/24/18 at 09:00 Eye Lubricant (Artificial Tears Oph) 1 drop TID PRN BOTH EYES DRY EYES; Start 09/24/18 at 05:00 Ranitidine HCl (Zantac) 150 mg Q12 PO Last administered on 09/27/18 09:31; Admin Dose 150 MG; Start 09/24/18 at 09:00 Albuterol/ Ipratropium (Duoneb) 3 ml Q4H RESP THERAPY PRN HHN SHORTNESS OF BREATH Last administered on 09/27/18 12:50; Admin Dose 3 ML; Start 09/24/18 at 0 5:00 Lorazepam (Ativan) 1 mg Q6H PRN IV ANXIETY Last administered on 09/27/18 12:38; Admin Dose 1 MG; Start 09/24/18 at 05:00 Diagnostic Test (Pha) (Accu-Chek) 1 ea 02 XX Last administered on 09/27/18at 01:24; Admin Dose 1 EA; Start 09/25/18 at 02:00 Miscellaneous Information 1 ea NOTE XX ; Start 09/24/18 at 05:30 Glucose (Glutose) 15 gm Q15M PRN PO DECREASED GLUCOSE; Start 09/24/18 at 05:30 Glucose (Glutose) 22.5 gm Q15M PRN PO DECREASED GLUCOSE; Start 09/24/18 at 05:30 Dextrose (D50w Syringe) 25 ml Q15M PRN IV DECREASED GLUCOSE; Start 09/24/18 at 05:30 Dextrose (D50w Syringe) 50 ml Q15M PRN IV DECREASED GLUCOSE; Start 09/24/18 at 05:30 Glucagon (Glucagen) 1 mg Q15M PRN IM DECREASED GLUCOSE; Start 09/24/18 at 05:30 Glucose (Glutose) 15 gm Q15M PRN BUCCAL DECREASED GLUCOSE; Start 09/24/18 at 05:30 Pantoprazole (Protonix Tab) 40 mg BID@0600,1800 PO Last administered on 09/27/18at 05:05; Admin Dose 40 MG; Start 09/24/18 at 06:00 Linezolid 300 ml @ 300 mls/hr Q12 IVPB Last administered on 09/27/18at 09:33; Admin Dose 300 MLS/HR; Start 09/24/18 at 11:30 Nitroglycerin (Nitroglycerin (Sl Tab) 0.4 Mg) 1 tab Q5M PRN SL ANGINA Last administered on 09/24/18at 16:00; Admin Dose 1 TAB; Start 09/24/18 at 13:00 Enoxaparin Sodium (Lovenox) 40 mg DAILY SC Last administered on 09/27/18 10:38; Admin Dose 40 MG; Start 09/24/18 at 13:00 Morphine Sulfate (morphine) 6 mg Q4H PRN PO SEVERE PAIN LEVEL 7-10 Last administered on 09/27/18 09:34; Admin Dose 6 MG; Start 09/26/18 at 12:30 Meropenem/Sodium Chloride 50 ml @ 100 mls/hr Q12 IVPB Last administered on 09/27/18 09:33; Admin Dose 100 MLS/HR; Start 09/26/18 at 21:00 NANCY MOREL NP Sep 27, 2018 13:32
--- NOTE | 2018-09-27 14:20 | CONS ---
Consult Date/Type/Reason Admit Date/Time Sep 23, 2018 at 23:15 Initial Consult Date 09/24/18 Type of Consult Pulmonary Requesting Provider: KHANH SOSA MD Date/Time of Note DATE: 09/27/18 TIME: 14:20 Subjective Patient had anxiety attacks afternoon appears to have stabilized. Objective Vital Signs Date Temp Pulse Resp B/P (MAP) Pulse Ox O2 O2 Flow FiO2 Time Delivery Rate 09/27/18 78 13:11 09/27/18 22 92 30 11:39 09/27/18 98.4 126/76 11:09 (93) 09/24/18 Trach 01:05 Collar Intake and Output 09/26/18 09/26/18 09/27/18 1515:00 23:00 07:00 IntakeIntake Total 400 ml 850 ml 850 ml OutputOutput Total 1000 ml 1400 ml BalanceBalance 400 ml -150 ml -550 ml Exam GENERAL: Well-nourished well-developed gentleman comfortable at rest on mechanical ventilation via tracheostomy VITAL SIGNS: per chart NECK: Supple. No JVD or lymphadenopathy. CARDIAC EXAM: S1, S2. No added sounds or murmurs. CHEST: clear bilaterally, No added sounds, rales or wheezes ABDOMEN: Soft, nontender. No guarding or rebound. EXTREMITIES: No cyanosis, clubbing or edema. NEUROLOGIC: Generalized weakness. No focal deficits. Vent Setting Ventilator Support Mode: AC Fraction of Inspired Oxygen pe: 30 Positive End Expiratory Pressu: 8.0 Results/Medications Result Diagram: 09/27/18 0535 09/27/18 0535 Results 24 hrs Laboratory Tests Test 09/27/18 01:08 09/27/18 05:35 09/27/18 12:34 09/27/18 12:47 Bedside Glucose 95 113 White Blood Count 9.2 Red Blood Count 3.15 L Hemoglobin 9.5 L Hematocrit 30.0 L Mean Corpuscular 95.2 Volume Mean Corpuscular 30.2 Hemoglobin Mean Corpuscular 31.7 L Hemoglobin Concen t Red Cell 12.7 Distribution Width Platelet Count 189 Mean Platelet 8.9 Volume Immature 0.900 H Granulocytes % Neutrophils % 71.1 Lymphocytes % 16.3 Monocytes % 8.3 Eosinophils % 3.0 Basophils % 0.4 Nucleated Red 0.0 Blood Cells % Immature 0.080 H Granulocytes # Neutrophils # 6.5 Lymphocytes # 1.5 Monocytes # 0.8 Eosinophils # 0.3 Basophils # 0.0 Nucleated Red 0.0 Blood Cells # Sodium Level 140 Potassium Level 3.7 Chloride Level 103 Carbon Dioxide 31 Level Anion Gap 6 Blood Urea 13 Nitrogen Creatinine 0.67 Est Glomerular > 60 Filtrat Rate mL/min Glucose Level 80 Calcium Level 8.8 Phosphorus Level 3.0 Magnesium Level 2.4 Blood Gas Blood arterial Specimen Source Arterial Blood 09/27/2018 1:10:2 Date Drawn 1 PM Arterial Blood pH 7.286 *L (Temp corrected) Arterial Blood 69.0 H pCO2 (Temp correct) Arterial Blood 426.3 H pO2 (Temp corrected) Arterial Blood 32.1 H HCO3 Arterial Blood 3.8 H Base Excess Arterial Blood 99.6 H Oxygen Saturation Elijah Test ACCEPTAB Arterial Blood Right Radial Gas Puncture Site Arterial 0.3 Blood Carboxyhemo globin Arterial Blood 0.5 Methemoglobin Blood Gas A-a O2 217.7 H Differential Oxyhemoglobin 98.8 Percent Blood Gas 37.0 Temperature Blood Gas 20.0 Respiration Rate Blood Gas Actual 28 Respiration Rate Blood Gas VENT - AC Modality FiO2 100.0 Blood Gas Tidal 550.0 Volume Blood Gas Low 8.0 PEEP Setting Blood Gas GÓMEZ PASTRANA RN Critical Value Read Back Blood Gas Notified Whom Blood Gas 09/27/2018 1:28:2 Notified Time 8 PM Test 09/27/18 13:19 Troponin I < 0.012 Medications Current Medications Acetaminophen (Tylenol Tab) 650 mg PRN PRN PO NOTE; Start 09/24/18 at 05:00 Amitriptyline HCl (Elavil) 25 mg QHS PO Last administered on 09/26/18at 20:22; Admin Dose 25 MG; Start 09/24/18 at 21:00 Ascorbic Acid (Vitamin C) 500 mg DAILY PO Last administered on 09/27/18at 09:31; Admin Dose 500 MG; Start 09/24/18 at 09:00 Aspirin (Halfprin) 81 mg DAILY PO Last administered on 09/27/18at 09:32; Admin Dose 81 MG; Start 09/24/18 at 09:00 Atorvastatin Calcium (Lipitor) 10 mg QHS PO Last administered on 09/26/18at 20:22; Admin Dose 10 MG; Start 09/24/18 at 21:00 Bisacodyl (Dulcolax Supp) 10 mg DAILY PRN [place] CONSTIPATION; Start 09/24/18 at 05:00 Chlorhexidine Gluconate (Peridex) 15 ml Q12 MM Last administered on 09/27/18 09:32; Admin Dose 15 ML; Start 09/24/18 at 09:00 Cholestyramine Resin (Questran) 1 pkt BID PO Last administered on 09/27/18 09:32; Admin Dose 1 PKT; Start 09/24/18 at 09:00 Clonazepam (Klonopin) 0.5 mg BID PRN PO ANXIETY Last administered on 09/26/18 19:33; Admin Dose 0.5 MG; Start 09/24/18 at 05:00 Acetaminophen/ Hydrocodone Bitart ([place] (5/325)) 1 tab BID PRN PO MANAGEMENT; Start 09/24/18 at 05:00 Acetaminophen/ Hydrocodone Bitart ([place] (5/325)) 1 tab Q6 PRN PO PAIN LEVEL 7- 9 Last administered on 09/26/18 20:21; Admin Dose 1 TAB; Start 09/24/18 at 05:00 Loratadine (Claritin) 10 mg DAILY PO Last administered on 09/27/18 09:31; Admin Dose 10 MG; Start 09/24/18 at 09:00 Magnesium Hydroxide (Milk Of Mag) 30 ml DAILY PRN PO CONSTIPATION; Start 09/24/18 at 05:00 Magnesium Oxide (Mag-Ox 400) 400 mg DAILY PO Last administered on 09/27/18 09: 31; Admin Dose 400 MG; Start 09/24/18 at 09:00 Metoprolol Tartrate (Lopressor) 25 mg BID PO Last administered on 09/27/18 09:32; Admin Dose 25 MG; Start 09/24/18 at 09:00 Multivitamins Therapeutic (Theragran) 1 tab DAILY PO Last administered on 09/27/18 09:31; Admin Dose 1 TAB; Start 09/24/18 at 09:00 Eye Lubricant (Artificial Tears Oph) 1 drop TID PRN BOTH EYES DRY EYES; Start 09/24/18 at 05:00 Ranitidine HCl (Zantac) 150 mg Q12 PO Last administered on 09/27/18 09:31; Admin Dose 150 MG; Start 09/24/18 at 09:00 Albuterol/ Ipratropium (Duoneb) 3 ml Q4H RESP THERAPY PRN HHN SHORTNESS OF BREATH Last administered on 09/27/18at 13:50; Admin Dose 3 ML; Start 09/24/18 at 05:00 Lorazepam (Ativan) 1 mg Q6H PRN IV ANXIETY Last administered on 09/27/18 12:38; Admin Dose 1 MG; Start 09/24/18 at 05:00 Diagnostic Test (Pha) (Accu-Chek) 1 ea 02 XX Last administered on 09/27/18at 01:24; Admin Dose 1 EA; Start 09/25/18 at 02:00 Miscellaneous Information 1 ea NOTE XX ; Start 09/24/18 at 05:30 Glucose (Glutose) 15 gm Q15M PRN PO DECREASED GLUCOSE; Start 09/24/18 at 05:30 Glucose (Glutose) 22.5 gm Q15M PRN PO DECREASED GLUCOSE; Start 09/24/18 at 05:30 Dextrose (D50w Syringe) 25 ml Q15M PRN IV DECREASED GLUCOSE; Start 09/24/18 at 05:30 Dextrose (D50w Syringe) 50 ml Q15M PRN IV DECREASED GLUCOSE; Start 09/24/18 at 05:30 Glucagon (Glucagen) 1 mg Q15M PRN IM DECREASED GLUCOSE; Start 09/24/18 at 05:30 Glucose (Glutose) 15 gm Q15M PRN BUCCAL DECREASED GLUCOSE; Start 09/24/18 at 05:30 Pantoprazole (Protonix Tab) 40 mg BID@0600,1800 PO Last administered on 09/27/18at 05:05; Admin Dose 40 MG; Start 09/24/18 at 06:00 Linezolid 300 ml @ 300 mls/hr Q12 IVPB Last administered on 09/27/18at 09:33; Admin Dose 300 MLS/HR; Start 09/24/18 at 11:30 Nitroglycerin (Nitroglycerin (Sl Tab) 0.4 Mg) 1 tab Q5M PRN SL ANGINA Last administered on 09/24/18at 16:00; Admin Dose 1 TAB; Start 09/24/18 at 13:00 Enoxaparin Sodium (Lovenox) 40 mg DAILY SC Last administered on 09/27/18at 10:38; Admin Dose 40 MG; Start 09/24/18 at 13:00 Morphine Sulfate (morphine) 6 mg Q4H PRN PO SEVERE PAIN LEVEL 7-10 Last administered on 09/27/18at 09:34; Admin Dose 6 MG; Start 09/26/18 at 12:30 Meropenem/Sodium Chloride 50 ml @ 100 mls/hr Q12 IVPB Last administered on 09/27/18at 09:33; Admin Dose 100 MLS/HR; Start 09/26/18 at 21:00 Assessment/Plan Hospital Course (Demo Recall) IMP: 1. Fevers/Leukocytosis--in a patient with advanced emphysema and VDRF s/p numerous prior infections. CXR and clinical exam not impressive for HCAP, though appropriate to cover. 2. VDRF 3. Chronic Hypercapnic Resp Failure- 4. Afib 5. Recent bacteremia 6. CAD RECS: 1. Bronchodilators with duonebs Q4 hours 2. Broad spectrum abx; with plans to de-escalate pending cultures 3. UA; urine cx; resp cx; and BC x 2, abx per ID 4 continue mechanical ventilation 5. permissive hypercapnia 6. DVT/GI prophylaxis 7. Anxiolytic DEMARIO BROWN MD, [facility] Sep 27, 2018 14:20
[2018-09-27] MEDS: clonAZEPAM 0.5 MG TAB PO PRN (15:07)
[2018-09-27] MEDS: AMITRIPTYLINE 25 MG TAB PO SCH (20:56)
[2018-09-27] MEDS: ATORVASTATIN 10 MG TAB PO SCH (20:57)
[2018-09-28] VITALS (19 sets, daily range): BP systolic 106–136; BP diastolic 68–81; PULSE 66–82; RESP 18–22
[2018-09-28] MEDS: morphine LIQ (10 MG/5 ML) CUP PO PRN ×3 (01:01→19:10)
[2018-09-28] MEDS: ALBUTEROL/IPRATROPIUM (NEB) 3 ML AMP HHN PRN ×4 (01:13→17:00)
[2018-09-28] MEDS: ACCU-CHEK XX SCH (01:22)
--- NOTE | 2018-09-28 02:00 | DS ---
DATE OF ADMISSION: 09/23/2018 DATE OF DISCHARGE: HOSPITAL COURSE: This is a 58-year-old male well known to me with a past medical history of end-stag e respiratory failure, history of dysphagia, history of coronary artery disease, history of paroxysma l AFib, history of chronic pain syndrome, history of anxiety disorder, who was admitted to [facility] from his skilled nurse facility with sepsis. The patient was admitted to [facility]. While in telemetry, the patient had a chest x-ray which showed evidence of possible pneumonia. T he patient had elevated white count. The patient was treated with IV antibiotics with clinical impro vement. The patient's blood cultures grew out coag-negative staph. The patient's repeat blood cultu res were negative. The patient was seen by infectious disease, Dr. Brown, as well as activities assistant, Dr. Russo. The patient, however, remains fully ventilatory dependent and requires frequent suctio marci. As a result, the patient will be transferred to [facility] for continued vent m anagement and IV antibiotics for underlying sepsis. At the time of transfer, the patient is stable, in no acute distress. FINAL DIAGNOSES: 1. Sepsis secondary to pneumonia bacteremia. 2. Ventilatory-dependent respiratory failure. 3. Paroxysmal atrial fibrillation. 4. Dysphagia. 5. Anemia. 6. Coronary artery disease. 7. Diabetes. 8. Advanced chronic obstructive pulmonary disease. 9. Status post chest pain. 10. Anxiety disorder. 11. Bacteremia. FINAL MEDICATIONS: See reconciliation list. CONDITION ON DISCHARGE: At the time of transfer, the patient is stable, no acute distress. Dictated By: RAMY DOMINGUEZ DO NR/NTS Conf#: [id number] DID#: [id number] CC: DEMARIO RUSSO MD; KHANH SOSA MD;*EndCC*
[2018-09-28] MEDS: HYDROCODONE/APAP (5/325) TAB PO PRN (05:11)
[2018-09-28] MEDS: PANTOPRAZOLE (EC) 40 MG TAB PO SCH ×2 (05:12→18:00)
--- NOTE | 2018-09-28 08:02 | CONS ---
Consult Date/Type/Reason Admit Date/Time Sep 23, 2018 at 23:15 Initial Consult Date 09/25/18 Type of Consultation: cv Requesting Provider: KHANH SOSA MD Date/Time of Note DATE: 09/28/18 TIME: 08:00 Subjective Cardiology follow-up progress note Subjective: Discussed with the staff telemetry was reviewed patient remained sinus rhythm. Heart rate is under good control now Patient is status post tracheostomy on vent 40% now . No reports of chest pain or pressure now Objective: General: Obese gentleman in no acute distress HEENT: NC/AT. pupils are equal. round. NECK: status post tracheostomy. no stridor. CV: RRR. systolic murmur; no gallop or rubs. PULM: no wheezing or rhonchi. Chest: No reproducible chest wall tenderness GI: SOFT, NT, ND, no rebound or guarding Extremity: trace B/L LE edema. no clubbing. neuro: Comfortably sleeping now Psych: calm at the moment rectal: deferred EKG shows sinus tachycardia heart rate of 130 Chest x-ray done in the ER showed:. Calcified atherosclerosis in the aorta. Scattered atelectasis in both lungs. Stable superimposed mild potential alveolar infiltrates throughout the right lung and left lower lobe. Diffuse mild interstitial prominence in both lungs. Interstitial prominence could be chronic or reflect mild interstitial edema. Echocardiogram done 09/25/2018 was personally reviewed which shows: Overall, normal left ventricular systolic function. Not all segments visualized. Normal left ventricular cavity size. Left ventricle not well visualized. Mild concentric left ventricular hypertrophy. Ejection fraction is visually estimated at 60 %. Abnormal Diastolic Function. Mitral valve is not well visualized. Mild mitral leaflet calcification. Mild mitral annular calcification. Trace mitral regurgitation. Aortic valve not well visualized. No hemodynamically significant aortic stenosis by doppler. Aortic cusps appear mildly calcified. Normal appearance of the tricuspid valve. Estimated peak PA systolic pressure 23 mmHg. There is trace tricuspid regurgitation. VERY SUBOPTIMAL. PT agitated and noncooperative during the study. Objective Vitals Vital Signs Date Temp Pulse Resp B/P (MAP) Pulse Ox O2 O2 Flow FiO2 Time Delivery Rate 09/28/18 74 21 100 40 05:10 09/28/18 98.6 106/68 04:00 (81) Intake and Output 09/27/18 09/27/18 09/28/18 1414:59 22:59 06:59 IntakeIntake Total 350 ml 550 ml 850 ml OutputOutput Total 1200 ml 1050 ml BalanceBalance 350 ml -650 ml -200 ml Results/Medications Result Diagram: 09/27/18 0535 09/27/18 0535 Results 24 hrs Laboratory Tests Test 09/27/18 12:34 09/27/18 12:47 09/27/18 13:19 09/28/18 01:17 Bedside Glucose 113 77 Blood Gas Blood arterial Specimen Source Arterial Blood 09/27/2018 1:10:2 Date Drawn 1 PM Arterial Blood pH 7.286 *L (Temp corrected) Arterial Blood 69.0 H pCO2 (Temp correct) Arterial Blood 426.3 H pO2 (Temp corrected) Arterial Blood 32.1 H HCO3 Arterial Blood 3.8 H Base Excess Arterial Blood 99.6 H Oxygen Saturation Elijah Test ACCEPTAB Arterial Blood Right Radial Gas Puncture Site Arterial 0.3 Blood Carboxyhemo globin Arterial Blood 0.5 Methemoglobin Blood Gas A-a O2 217.7 H Differential Oxyhemoglobin 98.8 Percent Blood Gas 37.0 Temperature Blood Gas 20.0 Respiration Rate Blood Gas Actual 28 Respiration Rate Blood Gas VENT - AC Modality FiO2 100.0 Blood Gas Tidal 550.0 Volume Blood Gas Low 8.0 PEEP Setting Blood Gas GÓMEZ PASTRANA RN Critical Value Read Back Blood Gas Notified Whom Blood Gas 09/27/2018 1:28:2 Notified Time 8 PM Troponin I < 0.012 Home Meds Reported Medications Ascorbic Acid* (Vitamin C*) 500 Mg Capsule.sa, 500 MG PO DAILY, CAP 08/19/17 Cran/Vitc/Mannose/Inulin/Brom (Uti-Stat Liquid) 3,875 Mg/30 Ml Liquid, 3875 MG PO DAILY 08/19/17 Acetaminophen* (Acetaminophen*) 650 Mg Tablet, 650 MG PO FOR TRACH CHANGE, #30 TAB GIVE 30 MIN PRIOR TO TRACH CHANGE 08/19/17 Ranitidine Hcl* (Ranitidine Hcl*) 150 Mg Tablet, 150 MG PO Q12, #60 TAB 08/19/17 Omeprazole* (Omeprazole*) 20 Mg Capsule.dr, 20 MG PO BID, #60 CAP 08/19/17 Hydrocodone/Acetaminophen ([place] 5-325 Tablet) 1 Each Tablet, 1 EACH PO BID PRN for MANAGEMENT, TAB 08/19/17 Hydrocodone/Acetaminophen ([place] 5-325 Tablet) 1 Each Tablet, 1 EACH PO Q6 PRN for PAIN LEVEL 7-9, TAB 08/19/17 Multivitamins* (Theragran*) 1 Tab Tab, 1 TAB PO DAILY, TAB 08/19/17 Magnesium Hydroxide* (Milk Of Magnesia*) 400 Mg/5 Ml Oral.susp, 30 ML PO DAILY PRN for CONSTIPATION, ML 08/19/17 Metoprolol Tartrate* (Lopressor*) 25 Mg Tablet, 25 MG PO BID, #60 TAB HOLD FOR SBP <110 OR HR <60 08/19/17 Magnesium Oxide* (Magnesium Oxide*) 400 Mg Tablet, 400 MG PO DAILY, TAB 08/19/17 Loratadine* (Loratadine*) 10 Mg Tablet, 10 MG PO DAILY, #30 TAB 08/19/17 Clonazepam* (Klonopin*) 0.5 Mg Tab, 0.5 MG PO BID PRN for ANXIETY, TAB 08/19/17 Amitriptyline Hcl* (Amitriptyline Hcl*) 25 Mg Tablet, 25 MG PO QHS, #30 TAB 08/19/17 Bisacodyl (Dulcolax) 10 Mg Supp.rect, 10 MG RC DAILY PRN for CONSTIPATION, SUPP.RECT 08/19/17 Cholestyramine* (Questran* Powder) 378 Gm Powder, 4 GM PO BID, EA 08/19/17 Chlorhexidine Gluconate (Peridex) 473 Ml Mouthwash, 15 ML MM Q12, BOTTLE 08/19/17 Atorvastatin Calcium (Atorvastatin Calcium) 10 Mg Tablet, 10 MG PO QHS, #30 TAB 08/19/17 Aspirin (Low Dose Aspirin) 81 Mg Tablet.dr, 81 MG PO DAILY, #30 TAB 08/19/17 Polyvinyl Alcohol (Tears Again) 15 Ml Drops, 1 DRP BOTH EYES TID PRN for DRY EYES, BOTTLE 08/19/17 Albuterol Sulfate* (Albuterol Sulfate* Neb) 0.083%-3 Ml Neb, 2.5 MG NEB Q6 PRN for WHEEZING AND SOB, #30 VIAL 08/19/17 Albuterol Sulfate* (Albuterol Sulfate* Neb) 0.083%-3 Ml Neb, 2.5 MG NEB Q3H PRN for WHEEZING AND SOB, #30 VIAL 08/19/17 Medications Current Medications Acetaminophen (Tylenol Tab) 650 mg PRN PRN PO NOTE; Start 09/24/18 at 05:00 Amitriptyline HCl (Elavil) 25 mg QHS PO Last administered on 09/27/18 20:56; Admin Dose 25 MG; Start 09/24/18 at 21:00 Ascorbic Acid (Vitamin C) 500 mg DAILY PO Last administered on 09/27/18 09:31; Admin Dose 500 MG; Start 09/24/18 at 09:00 Aspirin (Halfprin) 81 mg DAILY PO Last administered on 09/27/18 09:32; Admin Dose 81 MG; Start 09/24/18 at 09:00 Atorvastatin Calcium (Lipitor) 10 mg QHS PO Last administered on 09/27/18 20:57; Admin Dose 10 MG; Start 09/24/18 at 21:00 Bisacodyl (Dulcolax Supp) 10 mg DAILY PRN [place] CONSTIPATION; Start 09/24/18 at 05:00 Chlorhexidine Gluconate (Peridex) 15 ml Q12 MM Last administered on 09/27/18 20:55; Admin Dose 15 ML; Start 09/24/18 at 09:00 Cholestyramine Resin (Questran) 1 pkt BID PO Last administered on 09/27/18 09:32; Admin Dose 1 PKT; Start 09/24/18 at 09:00 Clonazepam (Klonopin) 0.5 mg BID PRN PO ANXIETY Last administered on 09/27/18 15:07; Admin Dose 0.5 MG; Start 09/24/18 at 05:00 Acetaminophen/ Hydrocodone Bitart ([place] (5/325)) 1 tab BID PRN PO MANAGEMENT; Start 09/24/18 at 05:00 Acetaminophen/ Hydrocodone Bitart ([place] (5/325)) 1 tab Q6 PRN PO PAIN LEVEL 7- 9 Last administered on 09/28/18 05:11; Admin Dose 1 TAB; Start 09/24/18 at 05:00 Loratadine (Claritin) 10 mg DAILY PO Last administered on 09/27/18 09:31; Admin Dose 10 MG; Start 09/24/18 at 09:00 Magnesium Hydroxide (Milk Of Mag) 30 ml DAILY PRN PO CONSTIPATION; Start 09/24/18 at 05:00 Magnesium Oxide (Mag-Ox 400) 400 mg DAILY PO Last administered on 09/27/18 09:31; Admin Dose 400 MG; Start 09/24/18 at 09:00 Metoprolol Tartrate (Lopressor) 25 mg BID PO Last administered on 09/27/18 20:57; Admin Dose 25 MG; Start 09/24/18 at 09:00 Multivitamins Therapeutic (Theragran) 1 tab DAILY PO Last administered on 09/27/18 09:31; Admin Dose 1 TAB; Start 09/24/18 at 09:00 Eye Lubricant (Artificial Tears Oph) 1 drop TID PRN BOTH EYES DRY EYES; Start 09/24/18 at 05:00 Ranitidine HCl (Zantac) 150 mg Q12 PO Last administered on 09/27/18 20:56; Admin Dose 150 MG; Start 09/24/18 at 09:00 Albuterol/ Ipratropium (Duoneb) 3 ml Q4H RESP THERAPY PRN HHN SHORTNESS OF BREATH Last administered on 09/28/18 05:16; Admin Dose 3 ML; Start 09/24/18 at 05:00 Lorazepam (Ativan) 1 mg Q6H PRN IV ANXIETY Last administered on 09/27/18 12:38; Admin Dose 1 MG; Start 09/24/18 at 05:00 Diagnostic Test (Pha) (Accu-Chek) 1 ea 02 XX Last administered on 09/28/18 01:22; Admin Dose 1 EA; Start 09/25/18 at 02:00 Miscellaneous Information 1 ea NOTE XX ; Start 09/24/18 at 05:30 Glucose (Glutose) 15 gm Q15M PRN PO DECREASED GLUCOSE; Start 09/24/18 at 05:30 Glucose (Glutose) 22.5 gm Q15M PRN PO DECREASED GLUCOSE; Start 09/24/18 at 05:30 Dextrose (D50w Syringe) 25 ml Q15M PRN IV DECREASED GLUCOSE; Start 09/24/18 at 05:30 Dextrose (D50w Syringe) 50 ml Q15M PRN IV DECREASED GLUCOSE; Start 09/24/18 at 05:30 Glucagon (Glucagen) 1 mg Q15M PRN IM DECREASED GLUCOSE; Start 09/24/18 at 05:30 Glucose (Glutose) 15 gm Q15M PRN BUCCAL DECREASED GLUCOSE; Start 09/24/18 at 05:30 Pantoprazole (Protonix Tab) 40 mg BID@0600,1800 PO Last administered on 09/28/18 05:12; Admin Dose 40 MG; Start 09/24/18 at 06:00 Linezolid 300 ml @ 300 mls/hr Q12 IVPB Last administered on 09/27/18 22:21; Admin Dose 300 MLS/HR; Start 09/24/18 at 11:30 Nitroglycerin (Nitroglycerin (Sl Tab) 0.4 Mg) 1 tab Q5M PRN SL ANGINA Last ad ministered on 09/24/18 16:00; Admin Dose 1 TAB; Start 09/24/18 at 13:00 Enoxaparin Sodium (Lovenox) 40 mg DAILY SC Last administered on 09/27/18 10:38; Admin Dose 40 MG; Start 09/24/18 at 13:00 Morphine Sulfate (morphine) 6 mg Q4H PRN PO SEVERE PAIN LEVEL 7-10 Last administered on 09/28/18 01:01; Admin Dose 6 MG; Start 09/26/18 at 12:30 Meropenem/Sodium Chloride 50 ml @ 100 mls/hr Q12 IVPB Last administered on 09/27/18 21:02; Admin Dose 100 MLS/HR; Start 09/26/18 at 21:00 Assessment/Plan Hospital Course (Demo Recall) 1. Atypical chest pain: Has resolved now and myocardial infarction was ruled out with serial cardiac enzyme 2. Pneumonia 3. Bacteremia 4. Hypoxemic respiratory failure status post tracheostomy 5. History of hypertension 6. Sinus tachycardia 7. History of proximal atrial fibrillation: Currently remains sinus rhythm sinus tachycardia 8. History of dysphagia 9. History of COPD 10. Bipolar disorder 11. Anemia Recommendations: Continue with aspirin for now. Beta-toby to be continued at the current dose No evidence of DVT noted on the lower extremity ultrasound, continue with the DVT prophylaxis Antibiotic management as per internal medicine/ID recommendation Respiratory care to be continued, which is being managed by pulmonary consultants Statin to be continued as well Thank you for his referral. We will continue following with you BRENTON RIOS MD [facility] BRENTON RIOS MD Sep 28, 2018 08:02
--- NOTE | 2018-09-28 09:15 | PN ---
DATE: 09/28/2018 SUBJECTIVE: Yesterday, the patient had a rapid response after the patient had apparent cyanotic epis ode while on the commode and anxiety attack. The patient clinically improved, almost immediately aft er being given anxiolytic medication and breathing treatment. Overnight, no other acute events noted . OBJECTIVE: VITAL SIGNS: Blood pressure is 116/71, respirations 22, pulse 78, temperature is 98.0. HEENT: Head is normocephalic. NECK: Supple. HEART: Regular rate. LUNGS: Show diminished breath sounds at the base. ABDOMEN: Soft, nontender to palpation without rebound or guarding. EXTREMITIES: Negative for clubbing, cyanosis, no edema. DERMATOLOGIC: No rashes. MUSCULOSKELETAL: No joint effusions. NEUROLOGIC: No change in exam. MEDICATIONS: The patients medications have been reviewed. LABORATORY DATA: Has been reviewed on 09/27. ASSESSMENT AND PLAN: 1. Sepsis secondary to pneumonia bacteremia. The patient is clinically improving. Continue current antibiotic regimen. 2. Ventilator dependent respiratory failure, etiology secondary to advanced COPD. The patient's lupe t settings and ABG was reviewed. Continue to monitor. 3. Paroxysmal atrial fibrillation, currently in sinus rhythm. Continue current medical management. Follow up with cardiology. 4. Dysphagia. Continue modified diet. 5. Anemia. Continue to monitor hemoglobin and hematocrit levels. 6. History of coronary artery disease. Continue medical management. 7. Diabetes. Continue current insulin regimen. 8. Advanced chronic obstructive pulmonary disease. Continue current treatment plan. 9. Anxiety disorder. Continue anxiolytics. 10. Chest pain, musculoskeletal, resolved. DISPOSITION: The patient will be transferred to [facility]. Dictated By: RAMY DOMINGUEZ DO NR/NTS Conf#: [id number] DID#: [id number] CC: KHANH SOSA MD;*EndCC*
[2018-09-28] MEDS: MEROPENEM 1 GM/50ML(PMX) 50 ML IVPB SCH (09:34)
[2018-09-28] MEDS: METOPROLOL 25 MG TAB PO SCH (09:37)
[2018-09-28] MEDS: CHOLESTYRAMINE 4 GM PACKET PO SCH (09:37)
[2018-09-28] MEDS: LORATADINE 10 MG TAB PO SCH (09:37)
[2018-09-28] MEDS: CHLORHEXIDINE GLUCONATE 15 ML UD CUP MM SCH (09:37)
[2018-09-28] MEDS: RANITIDINE 150 MG TAB PO SCH (09:37)
[2018-09-28] MEDS: MAGNESIUM OXIDE 400 MG TAB PO SCH (09:37)
[2018-09-28] MEDS: ASPIRIN (EC) 81 MG TAB PO SCH (09:37)
[2018-09-28] MEDS: MULTIVITAMINS THERAPEUTIC TAB PO SCH (09:37)
[2018-09-28] MEDS: ENOXAPARIN 40 MG/0.4 ML SYG SC SCH (09:42)
[2018-09-28] MEDS: LINEZOLID 600 MG/D5W (PMX) 300 ML IVPB SCH (10:05)
[2018-09-28] MEDS: ASCORBIC ACID 500 MG TAB PO SCH (10:05)
--- NOTE | 2018-09-28 10:46 | CONS ---
Consult Date/Type/Reason Admit Date/Time Sep 23, 2018 at 23:15 Initial Consult Date 09/24/18 Type of Consult Pulmonary Requesting Provider: KHANH SOSA MD Date/Time of Note DATE: 09/28/18 TIME: 10:46 Subjective Patient is comfortable this morning no respiratory distress. Objective Vital Signs Date Temp Pulse Resp B/P (MAP) Pulse Ox O2 O2 Flow FiO2 Time Delivery Rate 09/28/18 74 20 100 40 09:10 09/28/18 98.0 116/71 Mechanical 08:00 (86) Ventilator Intake and Output 09/27/18 09/27/18 09/28/18 1515:00 23:00 07:00 IntakeIntake Total 350 ml 550 ml 850 ml OutputOutput Total 1200 ml 1050 ml BalanceBalance 350 ml -650 ml -200 ml Exam GENERAL: Well-nourished well-developed gentleman comfortable at rest on mechanical ventilation via tracheostomy VITAL SIGNS: per chart NECK: Supple. No JVD or lymphadenopathy. CARDIAC EXAM: S1, S2. No added sounds or murmurs. CHEST: clear bilaterally, No added sounds, rales or wheezes ABDOMEN: Soft, nontender. No guarding or rebound. EXTREMITIES: No cyanosis, clubbing or edema. NEUROLOGIC: Generalized weakness. No focal deficits. Vent Setting Ventilator Support Mode: AC Fraction of Inspired Oxygen pe: 40 Positive End Expiratory Pressu: 8.0 Results/Medications Result Diagram: 09/27/18 0535 09/27/18 0535 Results 24 hrs Laboratory Tests Test 09/27/18 12:34 09/27/18 12:47 09/27/18 13:19 09/28/18 01:17 Bedside Glucose 113 77 Blood Gas Blood arterial Specimen Source Arterial Blood 09/27/2018 1:10:2 Date Drawn 1 PM Arterial Blood pH 7.286 *L (Temp corrected) Arterial Blood 69.0 H pCO2 (Temp correct) Arterial Blood 426.3 H pO2 (Temp corrected) Arterial Blood 32.1 H HCO3 Arterial Blood 3.8 H Base Excess Arterial Blood 99.6 H Oxygen Saturation Elijah Test ACCEPTAB Arterial Blood Right Radial Gas Puncture Site Arterial 0.3 Blood Carboxyhemo globin Arterial Blood 0.5 Methemoglobin Blood Gas A-a O2 217.7 H Differential Oxyhemoglobin 98.8 Percent Blood Gas 37.0 Temperature Blood Gas 20.0 Respiration Rate Blood Gas Actual 28 Respiration Rate Blood Gas VENT - AC Modality FiO2 100.0 Blood Gas Tidal 550.0 Volume Blood Gas Low 8.0 PEEP Setting Blood Gas GÓMEZ PASTRANA RN Critical Value Read Back Blood Gas Notified Whom Blood Gas 09/27/2018 1:28:2 Notified Time 8 PM Troponin I < 0.012 Medications Current Medications Acetaminophen (Tylenol Tab) 650 mg PRN PRN PO NOTE; Start 09/24/18 at 05:00 Amitriptyline HCl (Elavil) 25 mg QHS PO Last administered on 09/27/18 20:56; Admin Dose 25 MG; Start 09/24/18 at 21:00 Ascorbic Acid (Vitamin C) 500 mg DAILY PO Last administered on 09/28/18 10:05; Admin Dose 500 MG; Start 09/24/18 at 09:00 Aspirin (Halfprin) 81 mg DAILY PO Last administered on 09/28/18 09:37; Admin Dose 81 MG; Start 09/24/18 at 09:00 Atorvastatin Calcium (Lipitor) 10 mg QHS PO Last administered on 09/27/18 20:57; Admin Dose 10 MG; Start 09/24/18 at 21:00 Bisacodyl (Dulcolax Supp) 10 mg DAILY PRN [place] CONSTIPATION; Start 09/24/18 at 05:00 Chlorhexidine Gluconate (Peridex) 15 ml Q12 MM Last administered on 09/28/18 09:37; Admin Dose 15 ML; Start 09/24/18 at 09:00 Cholestyramine Resin (Questran) 1 pkt BID PO Last administered on 09/28/18 09:37; Admin Dose 1 PKT; Start 09/24/18 at 09:00 Clonazepam (Klonopin) 0.5 mg BID PRN PO ANXIETY Last administered on 09/27/18 15:07; Admin Dose 0.5 MG; Start 09/24/18 at 05:00 Acetaminophen/ Hydrocodone Bitart (Orma (5/325)) 1 tab BID PRN PO MANAGEMENT; Start 09/24/18 at 05:00 Loratadine (Claritin) 10 mg DAILY PO Last administered on 09/28/18 09:37; Ad min Dose 10 MG; Start 09/24/18 at 09:00 Magnesium Hydroxide (Milk Of Mag) 30 ml DAILY PRN PO CONSTIPATION; Start 09/24/18 at 05:00 Magnesium Oxide (Mag-Ox 400) 400 mg DAILY PO Last administered on 09/28/18 09:37; Admin Dose 400 MG; Start 09/24/18 at 09:00 Metoprolol Tartrate (Lopressor) 25 mg BID PO Last administered on 09/28/18 09:37; Admin Dose 25 MG; Start 09/24/18 at 09:00 Multivitamins Therapeutic (Theragran) 1 tab DAILY PO Last administered on 09/28/18 09:37; Admin Dose 1 TAB; Start 09/24/18 at 09:00 Eye Lubricant (Artificial Tears Oph) 1 drop TID PRN BOTH EYES DRY EYES; Start 09/24/18 at 05:00 Ranitidine HCl (Zantac) 150 mg Q12 PO Last administered on 09/28/18 09:37; Admin Dose 150 MG; Start 09/24/18 at 09:00 Albuterol/ Ipratropium (Duoneb) 3 ml Q4H RESP THERAPY PRN HHN SHORTNESS OF BREATH Last administered on 09/28/18 05:16; Admin Dose 3 ML; Start 09/24/18 at 05:00 Lorazepam (Ativan) 1 mg Q6H PRN IV ANXIETY Last administered on 09/27/18 12:38; Admin Dose 1 MG; Start 09/24/18 at 05:00 Diagnostic Test (Pha) (Accu-Chek) 1 ea 02 XX Last administered on 09/28/18 01:22; Admin Dose 1 EA; Start 09/25/18 at 02:00 Miscellaneous Information 1 ea NOTE XX ; Start 09/24/18 at 05:30 Glucose (Glutose) 15 gm Q15M PRN PO DECREASED GLUCOSE; Start 09/24/18 at 05:30 Glucose (Glutose) 22.5 gm Q15M PRN PO DECREASED GLUCOSE; Start 09/24/18 at 05:30 Dextrose (D50w Syringe) 25 ml Q15M PRN IV DECREASED GLUCOSE; Start 09/24/18 at 05:30 Dextrose (D50w Syringe) 50 ml Q15M PRN IV DECREASED GLUCOSE; Start 09/24/18 at 05:30 Glucagon (Glucagen) 1 mg Q15M PRN IM DECREASED GLUCOSE; Start 09/24/18 at 05:30 Glucose (Glutose) 15 gm Q15M PRN BUCCAL DECREASED GLUCOSE; Start 09/24/18 at 05:30 Pantoprazole (Protonix Tab) 40 mg BID@0600,1800 PO Last administered on 09/28/18 05:12; Admin Dose 40 MG; Start 09/24/18 at 06:00 Linezolid 300 ml @ 300 mls/hr Q12 IVPB Last administered on 09/28/18at 10:05; Admin Dose 300 MLS/HR; Start 09/24/18 at 11:30 Nitroglycerin (Nitroglycerin (Sl Tab) 0.4 Mg) 1 tab Q5M PRN SL ANGINA Last administered on 09/24/18 16:00; Admin Dose 1 TAB; Start 09/24/18 at 13:00 Enoxaparin Sodium (Lovenox) 40 mg DAILY SC Last administered on 09/28/18 09:42; Admin Dose 40 MG; Start 09/24/18 at 13:00 Morphine Sulfate (morphine) 6 mg Q4H PRN PO SEVERE PAIN LEVEL 7-10 Last admini stered on 09/28/18at 01:01; Admin Dose 6 MG; Start 09/26/18 at 12:30 Meropenem/Sodium Chloride 50 ml @ 100 mls/hr Q12 IVPB Last administered on 09/28/18 09:34; Admin Dose 100 MLS/HR; Start 09/26/18 at 21:00 Assessment/Plan Hospital Course (Demo Recall) IMP: 1. Fevers/Leukocytosis--in a patient with advanced emphysema and VDRF s/p numerous prior infections. CXR and clinical exam not impressive for HCAP, though appropriate to cover. 2. VDRF 3. Chronic Hypercapnic Resp Failure- 4. Afib 5. Recent bacteremia 6. CAD RECS: 1. Bronchodilators with duonebs Q4 hours 2. Broad spectrum abx; consider de-escalation. 3. UA; urine cx; resp cx; and BC x 2, abx per ID 4 continue mechanical ventilation 5. permissive hypercapnia 6. DVT/GI prophylaxis 7. Anxiolytic Clinically improved. Consider DC planning. DEMARIO BROWN MD, [facility] Sep 28, 2018 10:46
--- NOTE | 2018-09-28 13:27 | CONS ---
Assessment/Plan Assessment/Plan Hospital Course (Demo Recall) Looks comfortable Indwelling: Trach bag Microbiology: Blood culture on admission grew staph, repeat bld cx neg Antimicrobials: Zyvox Merrem Allergy: Vancomycin Physical examination: Morbidly obese well-developed chronically ill-appearing middle-aged white man who is alert in no distress. Head atraumatic normocephalic sclera nonicteric vehicle mucosa dry neck is supple chest rise symmetrical breath sounds diminished bases heart S1-S2 abdomen obese soft bowel sounds present extremities without cyanosis Assessment: 1. Sepsis on admission 2. Acute on chronic hypoxemic respiratory failure with COPD exacerbation and possible pneumonia 3. Bacteremia 4. Coronary artery disease 5. Morbid obesity 6. Diabetes Plan: Stable, pulmonary recommendations noted, change Zyvox to Doxycycline Consultation Date/Type/Reason Admit Date/Time Sep 23, 2018 at 23:15 Initial Consult Date 09/24/18 Type of Consult id Requesting Provider: KHANH SOSA MD Date/Time of Note DATE: 09/28/18 TIME: 13:26 Exam/Review of Systems Exam Vitals Vital Signs Date Temp Pulse Resp B/P (MAP) Pulse Ox O2 O2 Flow FiO2 Time Delivery Rate 09/28/18 69 20 100 40 13:15 09/28/18 98.0 116/71 Mechanical 08:00 (86) Ventilator Intake and Output 09/27/18 09/27/18 09/28/18 1515:00 23:00 07:00 IntakeIntake Total 350 ml 550 ml 850 ml OutputOutput Total 1200 ml 1050 ml BalanceBalance 350 ml -650 ml -200 ml Results Result Diagram: 09/27/18 0535 09/27/18 0535 Results 24hrs Laboratory Tests Test 09/28/18 01:17 Bedside Glucose 77 Medications Medication Current Medications Acetaminophen (Tylenol Tab) 650 mg PRN PRN PO NOTE; Start 09/24/18 at 05:00 Amitriptyline HCl (Elavil) 25 mg QHS PO Last administered on 09/27/18at 20:56; Admin Dose 25 MG; Start 09/24/18 at 21:00 Ascorbic Acid (Vitamin C) 500 mg DAILY PO Last administered on 09/28/18at 10:05; Admin Dose 500 MG; Start 09/24/18 at 09:00 Aspirin (Halfprin) 81 mg DAILY PO Last administered on 09/28/18at 09:37; Admin Dose 81 MG; Start 09/24/18 at 09:00 Atorvastatin Calcium (Lipitor) 10 mg QHS PO Last administered on 09/27/18 20:57; Admin Dose 10 MG; Start 09/24/18 at 21:00 Bisacodyl (Dulcolax Supp) 10 mg DAILY PRN [place] CONSTIPATION; Start 09/24/18 at 05:00 Chlorhexidine Gluconate (Peridex) 15 ml Q12 MM Last administered on 09/28/18 09:37; Admin Dose 15 ML; Start 09/24/18 at 09:00 Cholestyramine Resin (Questran) 1 pkt BID PO Last administered on 09/28/18 09:37; Admin Dose 1 PKT; Start 09/24/18 at 09:00 Clonazepam (Klonopin) 0.5 mg BID PRN PO ANXIETY Last administered on 09/27/18 15:07; Admin Dose 0.5 MG; Start 09/24/18 at 05:00 Acetaminophen/ Hydrocodone Bitart (Labadie (5/325)) 1 tab BID PRN PO MANAGEMENT; Start 09/24/18 at 05:00 Loratadine (Claritin) 10 mg DAILY PO Last administered on 09/28/18 09:37; Admin Dose 10 MG; Start 09/24/18 at 09:00 Magnesium Hydroxide (Milk Of Mag) 30 ml DAILY PRN PO CONSTIPATION; Start 09/24/18 at 05:00 Magnesium Oxide (Mag-Ox 400) 400 mg DAILY PO Last administered on 09/28/18 09:37; Admin Dose 400 MG; Start 09/24/18 at 09:00 Metoprolol Tartrate (Lopressor) 25 mg BID PO Last administered on 09/28/18 09:37; Admin Dose 25 MG; Start 09/24/18 at 09:00 Multivitamins Therapeutic (Theragran) 1 tab DAILY PO Last administered on 09/28/18 09:37; Admin Dose 1 TAB; Start 09/24/18 at 09:00 Eye Lubricant (Artificial Tears Oph) 1 drop TID PRN BOTH EYES DRY EYES; Start 09/24/18 at 05:00 Ranitidine HCl (Zantac) 150 mg Q12 PO Last administered on 09/28/18 09:37; Admin Dose 150 MG; Start 09/24/18 at 09:00 Albuterol/ Ipratropium (Duoneb) 3 ml Q4H RESP THERAPY PRN HHN SHORTNESS OF BREATH Last administered on 09/28/18at 05:16; Admin Dose 3 ML; Start 09/24/18 at 05:00 Lorazepam (Ativan) 1 mg Q6H PRN IV ANXIETY Last administered on 09/27/18at 12:38; Admin Dose 1 MG; Start 09/24/18 at 05:00 Diagnostic Test (Pha) (Accu-Chek) 1 ea 02 XX Last administered on 09/28/18at 01:22; Admin Dose 1 EA; Start 09/25/18 at 02:00 Miscellaneous Information 1 ea NOTE XX ; Start 09/24/18 at 05:30 Glucose (Glutose) 15 gm Q15M PRN PO DECREASED GLUCOSE; Start 09/24/18 at 05:30 Glucose (Glutose) 22.5 gm Q15M PRN PO DECREASED GLUCOSE; Start 09/24/18 at 05:30 Dextrose (D50w Syringe) 25 ml Q15M PRN IV DECREASED GLUCOSE; Start 09/24/18 at 05:30 Dextrose (D50w Syringe) 50 ml Q15M PRN IV DECREASED GLUCOSE; Start 09/24/18 at 05:30 Glucagon (Glucagen) 1 mg Q15M PRN IM DECREASED GLUCOSE; Start 09/24/18 at 05:30 Glucose (Glutose) 15 gm Q15M PRN BUCCAL DECREASED GLUCOSE; Start 09/24/18 at 05:30 Pantoprazole (Protonix Tab) 40 mg BID@0600,1800 PO Last administered on 09/28/18at 05:12; Admin Dose 40 MG; Start 09/24/18 at 06:00 Linezolid 300 ml @ 300 mls/hr Q12 IVPB Last administered on 09/28/18at 10:05; A dmin Dose 300 MLS/HR; Start 09/24/18 at 11:30 Nitroglycerin (Nitroglycerin (Sl Tab) 0.4 Mg) 1 tab Q5M PRN SL ANGINA Last administered on 09/24/18at 16:00; Admin Dose 1 TAB; Start 09/24/18 at 13:00 Enoxaparin Sodium (Lovenox) 40 mg DAILY SC Last administered on 09/28/18at 09:42; Admin Dose 40 MG; Start 09/24/18 at 13:00 Morphine Sulfate (morphine) 6 mg Q4H PRN PO SEVERE PAIN LEVEL 7-10 Last administered on 09/28/18 01:01; Admin Dose 6 MG; Start 09/26/18 at 12:30 Meropenem/Sodium Chloride 50 ml @ 100 mls/hr Q12 IVPB Last administered on 09/28/18 09:34; Admin Dose 100 MLS/HR; Start 09/26/18 at 21:00 NANCY MOREL NP Sep 28, 2018 13:27
[2018-09-28] MEDS: clonAZEPAM 0.5 MG TAB PO PRN (16:47)
--- NOTE | 2018-09-28 17:09 | RADRPT ---
Vent Rate: 102 bpm RR Interval: 592 msec [place] Interval: 66 msec QRS Duration: 99 msec QT Interval: 351 msec QTC Interval: 456 msec P-R-T [place]: 20 - 57 - 75 degrees Sinus tachycardia...rate> 99 Low voltage, precordial leads...precordial leads <1.0mV Borderline T abnormalities, anterior leads...T flat or neg, V2-V4 Electronically Signed By: Driss Babcock
[2018-09-28] MEDS ORDERED: DOXYCYCLINE 100 MG TAB PO SCH (21:00)
== END 2018-09-28 19:52 | DRG 870 ==
LOC: E/R 21:17 → 6WM 23:15
PROVIDERS: ADMIT Internal Medicine Nephrology; ATTEND Internal Medicine Nephrology
PROC: 5A1955Z Respiratory Ventilation, Greater than 96 Consecutive Hours (ICD-10-PCS; principal; 2018-09-23)
DX: A41.1 Sepsis due to other specified staphylococcus (principal); J18.9 Pneumonia, unspecified organism; J96.12 Chronic respiratory failure with hypercapnia; J96.11 Chronic respiratory failure with hypoxia; Z99.11 Dependence on respirator [ventilator] status; I25.10 Atherosclerotic heart disease of native coronary artery without angina pectoris; I48.0 Paroxysmal atrial fibrillation; D64.9 Anemia, unspecified; E11.9 Type 2 diabetes mellitus without complications; F41.9 Anxiety disorder, unspecified; Z93.0 Tracheostomy status; I10 Essential (primary) hypertension; F31.9 Bipolar disorder, unspecified; R07.89 Other chest pain; J43.9 Emphysema, unspecified; E66.01 Morbid (severe) obesity due to excess calories; Z68.31 Body mass index [BMI] 31.0-31.9, adult
CPT/HCPCS: 36415; 36600; 71045; 80048; 81001; 81003; 82550; 82553; 82803; 82962; 83036; 83605; 83735; 84100; 84484; 85025; 85610; 85730; 87081; 87086; 93005; 93306; 93970; 94002; 94003; 94640; 94664; J1650; J1956; J2060; J2185; J2270; J2543; J7030; J7040